=== PATIENT | female | born 1950 | race American Indian/Alaskan Native ===

== ENCOUNTER 2016-06-21 00:27 | Inpatient (IN) | payer MEDICARE ==
[2016-06-21] MEDS ORDERED: PROVENTIL IH ONE ×4 (00:38→13:23)
[2016-06-21] MEDS ORDERED: ATROVENT IH ONE ×3 (00:38→01:24)
[2016-06-21] MEDS ORDERED: DELTASONE PO ONE (01:29)
--- NOTE | 2016-06-21 02:23 | Emergency Department Report ---
HPI - General Chief Complaint: Dyspnea/Respdistress Time Seen by Provider: 06/21/16 02:10 - HPI HPI: Room 19 The patient is a 66-year-old female presenting with a chief complaint of shortness of breath. The patient states for 1 week she has had a cough productive of yellow sputum and rhinorrhea. Patient denies any history of fever. Patient states her symptoms do appear to be exacerbated her asthma and she has been wheezing as well. Patient denies any sick contacts Location: Lungs Duration: One week Quality: Wheezing Severity: Moderate Modifying factors: [see above] Context: [see above] Mode of transportation: [not driving] ED Past Medical Hx - Past Medical History Previous Medical History?: Yes Hx Hypertension: Yes Hx Diabetes: Yes Hx Asthma: Yes - Surgical History Past Surgical History?: No - Family History Family history: no significant - Social History Smoking Status: Former Smoker (none x 30 years) Substance Use Type: None - Medications Home Medications: Home Medications Medication Instructions Recorded Confirmed Last Taken Type Fluticasone [Flonase] 50 mcg IH Q4-6H PRN 06/21/16 06/21/16 Unknown History Gabapentin [Neurontin] 800 mg PO Q8H 06/21/16 06/21/16 06/19/16 History Glimepiride [Amaryl] 2 mg PO QAM 06/21/16 06/21/16 06/20/16 History Insulin Glargine,Hum.rec.anlog 100 units SUB-Q QHS 06/21/16 06/21/16 06/19/16 History [Lantus Solostar] Lisinopril [Zestril TAB] 40 mg PO QDAY 06/21/16 06/21/16 06/20/16 History Metformin HCl [Metformin HCl ER] 500 mg PO BID 06/21/16 06/21/16 06/20/16 History amLODIPine [Norvasc] 5 mg PO DAILY 06/21/16 06/21/16 06/20/16 History ED Review of Systems ROS: Stated complaint: MARC/CONGESTION Other details as noted in HPI Comment: All other systems reviewed and negative Constitutional: denies: fever Eyes: denies: eye pain, eye discharge, vision change ENT: congestion, other (rhinorrhea) Respiratory: cough, shortness of breath, wheezing Cardiovascular: denies: chest pain, palpitations Endocrine: no symptoms reported Gastrointestinal: denies: abdominal pain, nausea, diarrhea Genitourinary: denies: urgency, dysuria, discharge Musculoskeletal: denies: back pain, joint swelling, arthralgia Skin: denies: rash, lesions Neurological: denies: headache, weakness, paresthesias Psychiatric: denies: anxiety, depression Hematological/Lymphatic: denies: easy bleeding, easy bruising Physical Exam - Physical Exam Vital Signs: Vital Signs 06/21/16 06/21/16 01:02 01:30 Temperature 98.8 F 98.8 F Pulse Rate 101 H 104 H Respiratory 18 18 Rate Blood Pressure 154/97 Blood Pressure 168/115 [Left] O2 Sat by Pulse 99 97 Oximetry Physical Exam: GENERAL: The patient is well-developed well-nourished male sitting on stretcher not appearing to be in acute distress. [] HEENT: Normocephalic. Atraumatic. Extraocular motions are intact. Patient has moist mucous membranes. NECK: Supple. Trachea Midline CHEST/LUNGS: Diffuse wheezing. No accessory muscle use seen HEART/CARDIOVASCULAR: Regular. There is no tachycardia. There is no gallop rub or murmur. ABDOMEN: Abdomen is soft, nontender. Patient has normal bowel sounds. There is no abdominal distention. SKIN: There is no rash. There is no diaphoresis. NEURO: The patient is awake, alert, and oriented. The patient is cooperative. The patient has normal speech MUSCULOSKELETAL: There is no evidence of acute injury. ED Course Vital Signs 06/21/16 06/21/16 01:02 01:30 Temperature 98.8 F 98.8 F Pulse Rate 101 H 104 H Respiratory 18 18 Rate Blood Pressure 154/97 Blood Pressure 168/115 [Left] O2 Sat by Pulse 99 97 Oximetry - Reevaluation(s) Reevaluation #1: 06/21/16 03:57 Patient still wheezing diffusely. Will admit the patient to the hospital for further treatment ED Medical Decision Making - Lab Data Result diagrams: 06/21/16 04:00 06/21/16 04:00 Laboratory Tests 06/21/16 06/21/16 04:00 04:00 WBC 13.9 H RBC 3.35 L Hgb 10.3 Hct 31.0 MCV 93 MCH 31 MCHC 33 RDW 13.1 L Plt Count 368 Lymph % (Auto) 22.0 [place] % (Auto) 7.9 H Eos % (Auto) 2.0 Baso % (Auto) 0.8 Lymph # 3.1 [place] # 1.1 H Eos # 0.3 Baso # 0.1 Seg Neutrophils % 67.3 Seg Neutrophils # 9.3 H Sodium 139 Potassium 4.6 Chloride 99.2 Carbon Dioxide 25 Anion Gap 19 BUN 20 H Creatinine 1.4 H Estimated GFR 46 BUN/Creatinine Ratio 14.28 Glucose 324 H Calcium 9.1 Influenza negative - Radiology Data Radiology results: image reviewed (chest x-ray) interpreted by me: Chest x-ray-no focal infiltrates, no pneumothorax - Differential Diagnosis acute asthma exacerbation, pneumonia, bronchitis, influenza Critical care attestation.: If time is entered above; I have spent that time in minutes in the direct care of this critically ill patient, excluding procedure time. ED Disposition Clinical Impression: Shortness of breath, Acute asthma exacerbation Disposition: OP ADMITTED IP TO THIS HOSP Is pt being admited?: Yes Does the pt Need Aspirin: Yes Condition: Fair Referrals: PRIMARY CARE, [Primary Care Provider] - 3-5 Days Time of Disposition: 03:58 (hospitalist paged)
[2016-06-21] MEDS ORDERED: MAGNESIUM SULFATE 2GM/50ML 2 GM/50 ML BAG IV ONE (03:57)
[2016-06-21 04:33] LABS: BUN/Creatinine Ratio 14.28; Calcium 9.1 mg/dL (8.4-10.2); Chloride 99.2 mmol/L (98-107); Potassium 4.6 mmol/L (3.6-5.0)
[2016-06-21 04:38] LABS: Basophils % (Auto) 0.8 % (0.0-1.8); Hemoglobin 10.3 gm/dl (10.1-14.3); Mean Corpuscular HGB Conc 33 % (30-34); Mean Corpuscular Hemoglobin 31 pg (28-32); Mean Corpuscular Volume 93 fl (79-97); Platelet Count 368 K/mm3 (140-440); Red Blood Count 3.35 M/mm3 (3.65-5.03); Red Cell Distribution Width 13.1 % (13.2-15.2); White Blood Count 13.9 K/mm3 (4.5-11.0)
[2016-06-21] MEDS ORDERED: MILK OF MAGNESIA PO PRN (05:13)
[2016-06-21] MEDS ORDERED: DULCOLAX PR PRN (05:13)
[2016-06-21] MEDS ORDERED: TYLENOL PO PRN (05:13)
[2016-06-21] MEDS ORDERED: D50W (25GM) IV PRN (05:13)
[2016-06-21] MEDS ORDERED: ZOFRAN IV PRN (05:13)
--- NOTE | 2016-06-21 05:37 | History and Physical Report ---
History of Present Illness Date of examination: 06/21/16 History of present illness: 66-year-old woman with history of hypertension, diabetes, asthma, gout comes emergency room with complaints of shortness of breath 1 week, cough productive of yellow phlegm, no fever or chills she has been using her nebulized treatments at home without significant improvement Patient denies chest pain, palpitation, abdominal pain, hematochezia, dysuria, frequency, focal weakness, dysarthria, fever chills, polydipsia polyuria, hot or cold intolerance, easy bruisability, or rash or bleeding from mucosal membrane, rhinorrhea, epistaxis, earache, tinnitus, blurry vision, eye discharge , anxiety, depression. Other review of systems negative PAST SURGICAL HISTORY: Hysterectomy, cholecystectomy, ankle surgery SOCIAL HISTORY: Denies alcohol, tobacco, drugs FAMILY HISTORY: Hypertension Medications and Allergies Allergies Allergy/AdvReac Type Severity Reaction Status Date / Time No Known Allergies Allergy Verified 06/21/16 01:02 Home Medications Medication Instructions Recorded Confirmed Last Taken Type Fluticasone [Flonase] 50 mcg IH Q4-6H PRN 06/21/16 06/21/16 Unknown History Gabapentin [Neurontin] 800 mg PO Q8H 06/21/16 06/21/16 06/19/16 History Glimepiride [Amaryl] 2 mg PO QAM 06/21/16 06/21/16 06/20/16 History Insulin Glargine,Hum.rec.anlog 100 units SUB-Q QHS 06/21/16 06/21/16 06/19/16 History [Lantus Solostar] Lisinopril [Zestril TAB] 40 mg PO QDAY 06/21/16 06/21/16 06/20/16 History Metformin HCl [Metformin HCl ER] 500 mg PO BID 06/21/16 06/21/16 06/20/16 History amLODIPine [Norvasc] 5 mg PO DAILY 06/21/16 06/21/16 06/20/16 History Albuterol Sulfate [Albuterol 0.63% 0.63 mg IH TID PRN #1 box 06/22/16 Unknown Rx NEBS] Azithromycin [Zithromax TAB] 250 mg PO QDAY #6 tablet 06/22/16 Unknown Rx Benzonatate [Tessalon Perles] 100 mg PO Q8HR #30 capsule 06/22/16 Unknown Rx Ipratropium [Atrovent NEB] 0.5 mg IH Q8HRT #1 box 06/22/16 Unknown Rx Nebulizer/Compressor [Devilbiss 1 each MC DAILY PRN #1 each 06/22/16 Unknown Rx Pulmoneb Lt Comp-Neb] Prednisone [predniSONE 10 mg 10 mg PO .TAPER #1 tab.ds.pk 06/22/16 Unknown Rx (6-Day Pack, 21 Tabs)] Exam - Physical Exam Narrative exam: Gen. appearance: Patient lying in bed, no apparent distress HEENT: Normocephalic, atraumatic, pupils equally round and reactive to light, extraocular movement intact, and no sclericterus,. No JVD or thyromegaly or nodule,neck supple, no carotid bruit ,mucous membranes moist, no exudate or erythema Heart: S1, S2, regular rate and rhythm Lungs: Wheezing bilaterally, breathing comfortable Abdomen: Positive bowel sounds, nontender, nondistended, no organomegaly Extremity: No edema, cyanosis, clubbing Skin: No rash, nodules, warm, dry Neuro: Oriented 3, cranial nerves II-12 intact, speech is fluent, motor and sensory intact - Constitutional Vitals: Temp Pulse Resp BP Pulse Ox 98.4 F 107 H 18 123/67 93 06/21/16 02:26 06/21/16 04:31 06/21/16 04:31 06/21/16 04:31 06/21/16 04:31 Results - Labs CBC & Chem 7: 06/22/16 08:53 06/22/16 08:53 Labs: Abnormal lab results 06/21/16 06/21/16 Range/Units 04:00 04:00 WBC 13.9 H (4.5-11.0) K/mm3 RBC 3.35 L (3.65-5.03) M/mm3 RDW 13.1 L (13.2-15.2) % [place] % (Auto) 7.9 H (0.0-7.3) % [place] # 1.1 H (0.0-0.8) K/mm3 Seg Neutrophils # 9.3 H (1.8-7.7) K/mm3 BUN 20 H (7-17) mg/dL Creatinine 1.4 H (0.7-1.2) mg/dL Glucose 324 H (65-100) mg/dL - Imaging and Cardiology EKG: image reviewed Chest x-ray: image reviewed Assessment and Plan Asthma exacerbation Hypertension Diabetes type 2 Gout Admits medicine Start high-dose IV steroids, nebulizer treatment, IV Zithromax Obtain sputum culture, check fingersticks initiate insulin sliding scale Continue appropriate outpatient medications, start DVT prophylaxis
[2016-06-21] MEDS: ZITHROMAX 500 MG in NACL 0.9% 250ML 250 ML IV SCH (06:28)
--- NOTE | 2016-06-21 06:49 | Admit Criteria Form ---
Admission Criteria Documentation: ASTHMA Clinical Indications for Admission to Inpatient Care (Place 'X' for any and all applicable criteria): Admission is indicated for ANY ONE of the following (1)(2)(3)(4)(5): [ ]I. Absent or markedly diminished breath sounds (silent chest) [ ]II. Oxygen saturation < 92% [ ]III. PaCO2 = / > 42 mm Hg (5.6 kPa) [ ]IV. Peak expiratory flow rate < 40% of predicted or personal best after treatment. [ ]V. Peak expiratory flow rate < 33% of predicted or personal before after treatment [ ]. Change in mental status [ ]VII. Ventilatory support required [ ]VIII. PaO2 < 60 mm Hg (8.0 kPa) [ ]IX. Cyanosis [ ]X. Cardiac dysrhythmia (e.g., bradycardia) [ ]XI. Hemodynamic instability [ ]XII. Radiographic evidence of complication requiring inpatient treatment (e.g., pneumonia, pneumothorax) [X]XIII. Inpatient admission required rather than observation care (also use Asthma: Observation Care guideline as appropriate) because of ANY ONE of the following: [ ]a) Respiratory finding that is severe or persistent (eg, dyspnea, tachypnea, accessory muscle use) [ ]b) Airflow measurements less than 60% of predicted or personal best that persist (e.g., over 24 hours) or worsen despite treatments [X]c) Supplemental oxygen or respiratory treatments for over 24 hours that are performable only in acute inpatient setting [ ]d) Other condition, treatment or monitoring requiring inpatient admission. Extended stay beyond goal length of stay may be needed for (26)(27)(28): [ ]a) Severe respiratory failure (23) (29) (30) [ ]b) Secondary causes and complications (25) [ ]c) Status asthmaticus [ ]d) Chronic obstructive asthma [ ]e) Older patients (29) [ ]f) Slow resolution [ ]g) Clinically significant exacerbation of comorbidities (eg, da. heart failure, atrial fibrillation) The original [employer] content created by [employer] has been revised. The portions of the content which have been revised are identified through the use of italic text or in bold, and [employer] has neither reviewed nor approved the modified material. All other unmodified content is copyright [employer] Please see references footnoted in the original [facility] edition 2016 Admission Criteria Met: Yes
--- NOTE | 2016-06-21 07:27 | XRay Report ---
ROUTINE CHEST, TWO VIEWS: HISTORY: Shortness of breath, cough. There is poor inspiration. Mild pulmonary venous congestion is suspected. Heart size is within normal limits. The lungs are clear. No evidence for pneumonia, CHF or pneumothorax. The bony structures are grossly intact. IMPRESSION: Mild pulmonary venous congestion.
[2016-06-21] MEDS ORDERED: NOVOLOG SUB-Q ONE (07:54)
[2016-06-21] MEDS: NOVOLOG SUB-Q SCH ×4 (08:00→23:15)
[2016-06-21] MEDS ORDERED: DUONEB 0.5 MG-3 MG/3 ML SOLN IH ONE ×2 (09:11→13:24)
[2016-06-21] MEDS: DUONEB 0.5 MG-3 MG/3 ML SOLN IH SCH ×3 (09:23→21:30)
[2016-06-21] MEDS ORDERED: LOVENOX SUB-Q ONE (10:21)
[2016-06-21] MEDS: LOVENOX SUB-Q SCH (10:31)
--- NOTE | 2016-06-21 16:09 | Event Note ---
Date: 06/21/16 Patient's exam and this afternoon in no acute distress still with cough and still with wheezing. Lantus added for bedtime insulin coverage. Continue to monitor closely.
[2016-06-21] MEDS ORDERED: FLONASE NS PRN ×2 (16:57→18:45)
[2016-06-21] MEDS ORDERED: AMBIEN PO PRN (16:58)
[2016-06-21] MEDS ORDERED: NEURONTIN PO SCH ×2 (20:00)
[2016-06-21] MEDS ORDERED: LEVEMIR SUB-Q SCH (22:00)
[2016-06-21] MEDS ORDERED: DESYREL PO SCH (22:00)
[2016-06-21] MEDS: NEURONTIN PO SCH (23:15)
[2016-06-22] MEDS: TESSALON PERLES PO SCH ×3 (01:43→14:35)
[2016-06-22] MEDS: DUONEB 0.5 MG-3 MG/3 ML SOLN IH SCH ×2 (02:11→09:25)
[2016-06-22] MEDS: ZITHROMAX 500 MG in NACL 0.9% 250ML 250 ML IV SCH (06:05)
[2016-06-22] MEDS: NEURONTIN PO SCH ×2 (08:09→14:35)
[2016-06-22] MEDS: NOVOLOG SUB-Q SCH ×2 (08:09→10:30)
[2016-06-22 09:27] LABS: Hematocrit 29.4 % (30.3-42.9); Hemoglobin 9.4 gm/dl (10.1-14.3); Mean Corpuscular HGB Conc 32 % (30-34); Mean Corpuscular Hemoglobin 30 pg (28-32); Mean Corpuscular Volume 94 fl (79-97); Platelet Count 383 K/mm3 (140-440); Red Blood Count 3.13 M/mm3 (3.65-5.03); Red Cell Distribution Width 13.4 % (13.2-15.2)
[2016-06-22 09:31] LABS: White Blood Count 20.2 K/mm3 (4.5-11.0)
[2016-06-22 09:37] LABS: BUN/Creatinine Ratio 17.5; Chloride 95.6 mmol/L (98-107); Potassium 4.9 mmol/L (3.6-5.0)
[2016-06-22] MEDS: LOVENOX SUB-Q SCH (09:49)
[2016-06-22 09:53] VITALS: BP 112/67
[2016-06-22] MEDS ORDERED: NORVASC PO SCH (10:00)
[2016-06-22] MEDS ORDERED: ZESTRIL PO SCH (10:00)
[2016-06-22 10:05] LABS: Basophils % (Manual) 0 % (0.0-1.8); Blastocytes % (Manual) 0 %; Eosinophils % (Manual) 0 % (0.0-4.3)
[2016-06-22 10:06] LABS: Anisocytosis 1+; Diff Status Complete; Ovalocytes Few; Polychromasia Rare; Stomatocytes Few
[2016-06-22] MEDS ORDERED: FLUARIX QUAD 2016-2017(36 MOS+) IM ONE (14:40)
[2016-06-22] MEDS ORDERED: PNEUMOVAX 23 IM ONE (15:00)
--- NOTE | 2016-06-22 16:35 | Discharge Summary ---
Providers - Providers Date of Admission: 06/21/16 05:13 Attending physician: ONOFRE NELSON Primary care physician: RECREATION COUNSELOR Hospitalization Condition: Fair Disposition: DISCHARGED TO HOME OR SELFCARE - Discharge Diagnoses (1) Gout Status: Acute Qualifiers: Gout site: G Gout etiology: G Encounter type: E Laterality: L Chronicity: C Presence of tophus: P (2) Metabolic syndrome Status: Acute (3) Diabetes Status: Acute Qualifiers: Diabetes mellitus type: D Diabetes mellitus complication status: D Diabetes mellitus complication detail: D Diabetic retinopathy severity: D Proliferative retinopathy type: P Diabetes mellitus macular edema: D Diabetes mellitus intermediate insulin use: D Laterality: L Chronic kidney disease stage: C (4) Acute asthma exacerbation Status: Acute Qualifiers: Asthma severity: A Exam - Constitutional Vitals: Temp Pulse Resp BP Pulse Ox 98 F 88 18 112/67 95 06/22/16 08:00 06/22/16 09:51 06/22/16 09:36 06/22/16 09:51 06/22/16 10:00 Plan Follow up with: PRIMARY CAREMD [Primary Care Provider] - 3-5 Days Prescriptions: Albuterol Sulfate [Albuterol 0.63% NEBS] 0.63 mg IH TID PRN #1 box PRN Reason: Wheezing Azithromycin [Zithromax TAB] 250 mg PO QDAY #6 tablet Benzonatate [Tessalon Perles] 100 mg PO Q8HR #30 capsule Ipratropium [Atrovent NEB] 0.5 mg IH Q8HRT #1 box Nebulizer/Compressor [Devilbiss Pulmoneb Lt Comp-Neb] 1 each MC DAILY PRN #1 each PRN Reason: Wheezing Prednisone [predniSONE 10 mg (6-Day Pack, 21 Tabs)] 10 mg PO .TAPER #1 tab.ds.pk
--- NOTE | 2016-06-25 08:22 | Query- Dyspnea ---
Leesa Nunn Wood Date:___06/25/16 Health Analytics Consultant/CDS: Tony / Theresa Phone#: [phone] Exercise your independent professional judgment when responding to query. Questions asked do not imply a particular answer is desired or expected. We greatly appreciate your clarification on this issue. Clinical Documentation States: 66 year old female was admitted on 06/21/16. The discharge summary states " Acute asthma exacerbation Status: Acute Qualifiers: Asthma severity: A " Clinical Findings Show: Respiratory rate: 33 Pulse ox: 89% Medication: IV solumedrol Please clarify if the patient had any of the following conditions based on the above clinical findings: [ ] Respiratory Failure [x ] Acute [ ] Acute on Chronic [ ] Chronic [ ] Respiratory failure due to trauma [ ] Acute Respiratory Distress Syndrome [ ] Other: [ ] Unable to determine [ ] Comment/Explanation: Present on Admission: [ x] Yes (Y) [ ] Clinically undeterminable (W) [ ] No (N) Please also document response in your Progress Notes and/or Discharge Summary and indicate if the condition was present on admission. DEXTER
--- NOTE | 2016-06-25 08:30 | Query- SIRS ---
Leesa Rosen Date: 06/25/16 Brancher/CDS: Tony / Theresa Phone#:__[phone] Exercise your independent professional judgment when responding to query. Questions asked do not imply a particular answer is desired or expected. We greatly appreciate your clarification on this issue. Clinical Documentation States: 66 year old female was admitted on 06/21/16. The discharge summary states " Discharge diagnosis: gout, metabolic syndrome, diabetes, acute asthma exacerbation " Clinical Findings Show (include reference to source document): WBC: 13.9 (06/21/16) , 20.2 (06/22/16) Pulse rate: 108 Medication : IV azithromycin Based on the above clinical scenario and your knowledge of the patient, please indicate the most appropriate diagnosis: [ ] SIRS (non-infectious) with Acute Organ Dysfunction [ x] SIRS (non-infectious) without Acute Organ Dysfunction [ ] Other: [ ] Unable to determine [ ] Comment/Explanation: Present on Admission: [x ] Yes (Y) [ ] Clinically undeterminable (W) [ ] No (N) Please also document response in your Progress Notes and/or Discharge Summary and indicate if the condition was present on admission. MTDD
--- NOTE | 2016-06-25 08:36 | Query- Diabetes Complications ---
Leesa Nunn Wood Date: 06/25/16 Systems Protection Technician/CDS: Tony / Theresa Phone#:____[phone] Exercise your independent professional judgment when responding to query. Questions asked do not imply a particular answer is desired or expected. We greatly appreciate your clarification on this issue. Clinical Documentation States: 66 year old female was admitted on 06/21/16. The discharge summary states " discharge diagnosis: diabetes " Clinical Findings Show: 06/21/16 06/22/16 Glucose: 324 506 Medication: IV dextrose, insulin glargin, novolog, levemir & novolin R Please clarify if this is: [x ] Diabetes with Hyperosmolarity [ ] Diabetic Ketoacidosis (DKA) [ ] Not applicable [ ] Other (Please specify): Please specify type as: [ ] Type I or Juvenile [ x] Out of control [ ] Inadequately controlled [ ] Poorly controlled [ ] Type II [ ] Out of control [ ] Inadequately controlled [ ] Poorly controlled Present on Admission: [x ] Yes (Y) [ ] Clinically undeterminable (W) [ ] No (N) Please also document response in your Progress Notes and/or Discharge Summary and indicate if the condition was present on admission. MTDD
== END 2016-06-22 15:45 | disposition home or self-care (01) | DRG 189 ==
LOC: ED 00:27 → 3A 05:13 → CC2 07:42
PROVIDERS: ADMIT Internal Medicine; ATTEND Internal Medicine
PROC: 3E0234Z Introduction of Serum, Toxoid and Vaccine into Muscle, Percutaneous Approach (ICD-10-PCS; principal; 2016-06-22)
DX: J96.00 Acute respiratory failure, unspecified whether with hypoxia or hypercapnia (principal); E13.00 Other specified diabetes mellitus with hyperosmolarity without nonketotic hyperglycemic-hyperosmolar coma (NKHHC); J45.901 Unspecified asthma with (acute) exacerbation; R65.10 Systemic inflammatory response syndrome (SIRS) of non-infectious origin without acute organ dysfunction; I10 Essential (primary) hypertension; M10.9 Gout, unspecified; E88.81 Metabolic syndrome and other insulin resistance; Z23 Encounter for immunization; Z87.891 Personal history of nicotine dependence; Z79.4 Long term (current) use of insulin; Z90.49 Acquired absence of other specified parts of digestive tract; Z90.710 Acquired absence of both cervix and uterus; Z82.49 Family history of ischemic heart disease and other diseases of the circulatory system; Z79.84 Long term (current) use of oral hypoglycemic drugs
CPT/HCPCS: 36415; 71020; 80048; 82962; 85007; 85025; 87400; 90686; 90732; 94640; 94644; 94760; 96365; J0456; J1650; J1815; J1818; J2930; J3475; J7050; J7512

== ENCOUNTER 2019-02-09 08:35 | Inpatient (IN) | payer MEDICARE ==
[2019-02-09] MEDS ORDERED: DEXTROSE 50% IN WATER (25GM) 50 ML SYRINGE IV ONE ×6 (08:46→22:38)
--- NOTE | 2019-02-09 09:35 | Emergency Department Report ---
HPI - General Chief Complaint: Altered Mental Status Time Seen by Provider: 02/09/19 09:01 - HPI HPI: Room 24 The patient is a 68-year-old female presenting with a chief complaint of altered mental status. Per family the patient has been "out of it" and complained of weakness for one week. Family states this morning the patient began stating that she wanted to go to the hospital as she experience nausea and vomiting. When EMS arrived they stated the patient appeared to have slurred speech and was hypotensive and subsequently transported the patient to the ED. In the ED the patient was found to be hypoglycemic with a glucose of 51. The patient was administered D50 but still seemed lethargic. Patient denies complaints in the ED Location: [See above] Duration: [See above] Quality: [See above] Severity: [See above] Timing: [See above] Context: [See above] Modifying factors: [See above] Associated signs and symptoms: [see above] ED Past Medical Hx - Past Medical History Hx Hypertension: Yes Hx Diabetes: Yes Hx Arthritis: Yes Hx Asthma: Yes - Surgical History Hx Cholecystectomy: Yes Additional Surgical History: Left foot - Family History Family history: no significant - Social History Smoking Status: Never Smoker Substance Use Type: None - Medications Home Medications: Home Medications Medication Instructions Recorded Confirmed Last Taken Type Fluticasone [Flonase] 50 mcg IH Q4-6H PRN 06/21/16 06/21/16 Unknown History Gabapentin [Neurontin] 800 mg PO Q8H 06/21/16 06/21/16 06/19/16 History Glimepiride [Amaryl] 2 mg PO QAM 06/21/16 06/21/16 06/20/16 History Insulin Glargine,Hum.rec.anlog 100 units SUB-Q QHS 06/21/16 06/21/16 06/19/16 History [Lantus Solostar] Lisinopril [Zestril TAB] 40 mg PO QDAY 06/21/16 06/21/16 06/20/16 History Metformin HCl [Metformin HCl ER] 500 mg PO BID 06/21/16 06/21/16 06/20/16 History amLODIPine [Norvasc] 5 mg PO DAILY 06/21/16 06/21/16 06/20/16 History Albuterol Sulfate [Albuterol 0.63% 0.63 mg IH TID PRN #1 box 06/22/16 Unknown Rx NEBS] Azithromycin [Zithromax TAB] 250 mg PO QDAY #6 tablet 06/22/16 Unknown Rx Benzonatate [Tessalon Perles] 100 mg PO Q8HR #30 capsule 06/22/16 Unknown Rx Ipratropium [Atrovent NEB] 0.5 mg IH Q8HRT #1 box 06/22/16 Unknown Rx Nebulizer and Compressor 1 each MC DAILY PRN #1 each 06/22/16 Unknown Rx [Devilbiss Pulmoneb Lt Comp-Neb] Prednisone [predniSONE 10 mg 10 mg PO .TAPER #1 tab.ds.pk 06/22/16 Unknown Rx (6-Day Pack, 21 Tabs)] ED Review of Systems ROS: Stated complaint: AMS Other details as noted in HPI Constitutional: malaise Eyes: denies: eye pain ENT: denies: throat pain Respiratory: no symptoms reported Cardiovascular: denies: chest pain Endocrine: no symptoms reported Gastrointestinal: nausea, vomiting Genitourinary: denies: dysuria Musculoskeletal: denies: back pain Neurological: other (altered mental status) Physical Exam - Physical Exam Vital Signs: Vital Signs 02/09/19 02/09/19 09:07 09:11 Temperature 99.9 F H 99.9 F H Pulse Rate 70 70 Respiratory 14 14 Rate Blood Pressure 107/49 Blood Pressure 107/49 [Right] O2 Sat by Pulse 97 97 Oximetry Physical Exam: GENERAL: The patient is well-developed well-nourished female lying on stretcher not appearing to be in acute distress. [] HEENT: Normocephalic. Atraumatic. Patient will not look to the right when instructed during extraocular muscle exam. Patient has moist mucous membranes. NECK: Supple. Trachea midline CHEST/LUNGS: Clear to auscultation. There is no respiratory distress noted. HEART/CARDIOVASCULAR: Regular. There is no tachycardia. There is no gallop rub or murmur. ABDOMEN: Abdomen is soft, nontender. Patient has normal bowel sounds. There is no abdominal distention. SKIN: There is no rash. There is no edema. There is no diaphoresis. NEURO: The patient is lethargic and falls asleep easily. The patient is not fully cooperative with neurologic exam. The patient has normal speech MUSCULOSKELETAL: There is no evidence of acute injury. ED Course Vital Signs 02/09/19 02/09/19 09:07 09:11 Temperature 99.9 F H 99.9 F H Pulse Rate 70 70 Respiratory 14 14 Rate Blood Pressure 107/49 Blood Pressure 107/49 [Right] O2 Sat by Pulse 97 97 Oximetry - Consultations Consultation #1: 02/09/19 11:13 Nephrology paged 02/09/19 11:[address] Noriega ED Medical Decision Making - Lab Data Result diagrams: 02/09/19 09:16 02/09/19 09:16 Laboratory Tests 02/09/19 02/09/19 02/09/19 08:48 09:16 09:16 WBC 14.6 H RBC 2.48 L Hgb 8.2 L Hct 25.4 L MCV 102 H MCH 33 H MCHC 32 RDW 16.1 H Plt Count 140 Add Manual Diff Complete Total Counted 100 Seg Neutrophils % Best Worker Seg Neuts % (Manual) 94.0 H Band Neutrophils % 5.0 Lymphocytes % (Manual) 1.0 L Reactive Lymphs % (Man) 0 Monocytes % (Manual) 0 Eosinophils % (Manual) 0 Basophils % (Manual) 0 Metamyelocytes % 0 Myelocytes % 0 Promyelocytes % 0 Blast Cells % 0 Nucleated RBC % 1.0 H Seg Neutrophils # Man 13.7 H Band Neutrophils # 0.7 Lymphocytes # (Manual) 0.1 L Abs React Lymphs (Man) 0.0 Monocytes # (Manual) 0.0 Eosinophils # (Manual) 0.0 Basophils # (Manual) 0.0 Metamyelocytes # 0.0 Myelocytes # 0.0 Promyelocytes # 0.0 Blast Cells # 0.0 WBC Morphology Not Reportable Hypersegmented Neuts Not Reportable Hyposegmented Neuts Not Reportable Hypogranular Neuts Not Reportable Smudge Cells Not Reportable Toxic Granulation Not Reportable Toxic Vacuolation Not Reportable Dohle Bodies Not Reportable Pelger-Huet Anomaly Not Reportable Casey Rods Not Reportable Platelet Estimate Consistent w auto Clumped Platelets Not Reportable Plt Clumps, EDTA Not Reportable Large Platelets Not Reportable Giant Platelets Not Reportable Platelet Satelliting Not Reportable Plt Morphology Comment Not Reportable RBC Morphology Not Reportable Dimorphic RBCs Not Reportable Polychromasia Few Hypochromasia Not Reportable Poikilocytosis Not Reportable Anisocytosis Few Microcytosis Not Reportable Macrocytosis 1+ Spherocytes Few Pappenheimer Bodies Not Reportable Sickle Cells Not Reportable Target Cells Not Reportable Tear Drop Cells Few Ovalocytes Few Helmet Cells Not Reportable Aguayo-Olinda Bodies Not Reportable [place] Rings Not Reportable [place] Cells Not Reportable Bite Cells Not Reportable Crenated Cell Not Reportable Elliptocytes Not Reportable Acanthocytes (Spur) Not Reportable Rouleaux Not Reportable Hemoglobin C Crystals Not Reportable Schistocytes Not Reportable Malaria parasites Not Reportable Emanuel Bodies Not Reportable Hem Pathologist Commnt No PT 17.8 H INR 1.49 H APTT 36.0 Sodium Potassium Chloride Carbon Dioxide Anion Gap BUN Creatinine Estimated GFR BUN/Creatinine Ratio Glucose POC Glucose 51 L Calcium Total Bilirubin AST ALT Alkaline Phosphatase Ammonia Total Creatine Kinase CK-MB (CK-2) CK-MB (CK-2) Rel Index Troponin T Total Protein Albumin Albumin/Globulin Ratio Triglycerides Cholesterol LDL Cholesterol Direct HDL Cholesterol Cholesterol/HDL Ratio TSH Free T4 Plasma/Serum Alcohol 02/09/19 02/09/19 02/09/19 09:16 09:16 09:16 WBC RBC Hgb Hct MCV MCH MCHC RDW Plt Count Add Manual Diff Total Counted Seg Neutrophils % Seg Neuts % (Manual) Band Neutrophils % Lymphocytes % (Manual) Reactive Lymphs % (Man) Monocytes % (Manual) Eosinophils % (Manual) Basophils % (Manual) Metamyelocytes % Myelocytes % Promyelocytes % Blast Cells % Nucleated RBC % Seg Neutrophils # Man Band Neutrophils # Lymphocytes # (Manual) Abs React Lymphs (Man) Monocytes # (Manual) Eosinophils # (Manual) Basophils # (Manual) Metamyelocytes # Myelocytes # Promyelocytes # Blast Cells # WBC Morphology Hypersegmented Neuts Hyposegmented Neuts Hypogranular Neuts Smudge Cells Toxic Granulation Toxic Vacuolation Dohle Bodies Pelger-Huet Anomaly Casey Rods Platelet Estimate Clumped Platelets Plt Clumps, EDTA Large Platelets Giant Platelets Platelet Satelliting Plt Morphology Comment RBC Morphology Dimorphic RBCs Polychromasia Hypochromasia Poikilocytosis Anisocytosis Microcytosis Macrocytosis Spherocytes Pappenheimer Bodies Sickle Cells Target Cells Tear Drop Cells Ovalocytes Helmet Cells Aguayo-Olinda Bodies [place] Rings [place] Cells Bite Cells Crenated Cell Elliptocytes Acanthocytes (Spur) Rouleaux Hemoglobin C Crystals Schistocytes Malaria parasites Emanuel Bodies Hem Pathologist Commnt PT INR APTT Sodium 131 L Potassium 6.0 H Chloride 91.4 L Carbon Dioxide 18 L Anion Gap 28 BUN 115 H Creatinine 6.8 H Estimated GFR 7 BUN/Creatinine Ratio 17 Glucose 90 POC Glucose Calcium 8.8 Total Bilirubin 2.90 H AST 20 ALT 10 Alkaline Phosphatase 115 Ammonia 61.0 H Total Creatine Kinase 264 H CK-MB (CK-2) 2.1 CK-MB (CK-2) Rel Index 0.7 Troponin T 0.073 H Total Protein 8.8 H Albumin 2.6 L Albumin/Globulin Ratio 0.4 Triglycerides 65 Cholesterol 47 L LDL Cholesterol Direct 13 L HDL Cholesterol 27 L Cholesterol/HDL Ratio 1.74 TSH 5.570 H Free T4 0.85 Plasma/Serum Alcohol 02/09/19 02/09/19 09:16 10:43 WBC RBC Hgb Hct MCV MCH MCHC RDW Plt Count Add Manual Diff Total Counted Seg Neutrophils % Seg Neuts % (Manual) Band Neutrophils % Lymphocytes % (Manual) Reactive Lymphs % (Man) Monocytes % (Manual) Eosinophils % (Manual) Basophils % (Manual) Metamyelocytes % Myelocytes % Promyelocytes % Blast Cells % Nucleated RBC % Seg Neutrophils # Man Band Neutrophils # Lymphocytes # (Manual) Abs React Lymphs (Man) Monocytes # (Manual) Eosinophils # (Manual) Basophils # (Manual) Metamyelocytes # Myelocytes # Promyelocytes # Blast Cells # WBC Morphology Hypersegmented Neuts Hyposegmented Neuts Hypogranular Neuts Smudge Cells Toxic Granulation Toxic Vacuolation Dohle Bodies Pelger-Huet Anomaly Casey Rods Platelet Estimate Clumped Platelets Plt Clumps, EDTA Large Platelets Giant Platelets Platelet Satelliting Plt Morphology Comment RBC Morphology Dimorphic RBCs Polychromasia Hypochromasia Poikilocytosis Anisocytosis Microcytosis Macrocytosis Spherocytes Pappenheimer Bodies Sickle Cells Target Cells Tear Drop Cells Ovalocytes Helmet Cells Aguayo-Olinda Bodies [place] Rings Karina Cells Bite Cells Crenated Cell Elliptocytes Acanthocytes (Spur) Rouleaux Hemoglobin C Crystals Schistocytes Malaria parasites Emanuel Bodies Hem Pathologist Commnt PT INR APTT Sodium Potassium Chloride Carbon Dioxide Anion Gap BUN Creatinine Estimated GFR BUN/Creatinine Ratio Glucose POC Glucose 83 Calcium Total Bilirubin AST ALT Alkaline Phosphatase Ammonia Total Creatine Kinase CK-MB (CK-2) CK-MB (CK-2) Rel Index Troponin T Total Protein Albumin Albumin/Globulin Ratio Triglycerides Cholesterol LDL Cholesterol Direct HDL Cholesterol Cholesterol/HDL Ratio TSH Free T4 Plasma/Serum Alcohol < 0.01 - EKG Data -: EKG Interpreted by Me EKG shows normal: sinus rhythm Rate: normal - EKG Data When compared to previous EKG there are: previous EKG unavailable Interpretation: nonspecific ST-T wave aggie (T-wave inversion in lead aVL) - Differential Diagnosis hypoglycemia, hepatic encephalopathy, rhabdomyolysis, ICH, dehydration Critical care attestation.: If time is entered above; I have spent that time in minutes in the direct care of this critically ill patient, excluding procedure time. ED Disposition Clinical Impression: Acute renal failure, Altered mental status, Hyperkalemia Disposition: OP ADMIT IP TO THIS HOSP Is pt being admited?: Yes Does the pt Need Aspirin: No Condition: Serious Referrals: PRIMARY CARE, [Primary Care Provider] - 3-5 Days Time of Disposition: 11:29 (hospitalist paged (Dr Bird))
[2019-02-09 09:40] LABS: Hematocrit 25.4 % (30.3-42.9); Hemoglobin 8.2 gm/dl (10.1-14.3); Mean Corpuscular HGB Conc 32 % (30-34); Mean Corpuscular Volume 102 fl (79-97); Platelet Count 140 K/mm3 (140-440); Red Blood Count 2.48 M/mm3 (3.65-5.03); Red Cell Distribution Width 16.1 % (13.2-15.2)
[2019-02-09 09:51] LABS: INR 1.49 (0.87-1.13)
[2019-02-09 10:05] LABS: Creatine Kinase MB 2.1 ng/mL (0.0-4.0)
[2019-02-09 10:09] LABS: Albumin 2.6 g/dL (3.9-5); Calcium 8.8 mg/dL (8.4-10.2)
[2019-02-09 10:16] LABS: Free T4 (Free Thyroxine) 0.85 ng/dL (0.76-1.46)
--- NOTE | 2019-02-09 10:36 | Cat Scan Report ---
CT head/brain wo con INDICATION / CLINICAL INFORMATION: 68 years Female; altered mental status. TECHNIQUE: Routine CT head without contrast. All CT scans at this location are performed using CT dos e reduction for ALARA by means of automated exposure control. COMPARISON: None. FINDINGS: BRAIN / INTRACRANIAL CONTENTS: Surprisingly little atrophy present. No acute hemorrhage, mass effect, midline shift, hydrocephalus, or acute, large territorial infarct. No chronic infarct or atrophy brenda reciated. No significant white matter abnormality. CRANIOCERVICAL JUNCTION: No significant abnormality. ORBITS: No significant abnormality of visualized orbits. SINUSES / MASTOIDS: No significant abnormality the visualized paranasal sinuses or mastoid air cells. ADDITIONAL FINDINGS: None. IMPRESSION: 1. No focal mass, hemorrhage, hydrocephalus, or acute, large territorial infarct. Signer Name: Chip Aly MD, III Signed: 02/09/2019 10:32 AM Workstation Name: [id number]
[2019-02-09 10:37] LABS: Band Neutrophils # (Manual) 0.7 K/mm3; Basophils % (Manual) 0 % (0.0-1.8); Eosinophils % (Manual) 0 % (0.0-4.3); Monocytes % (Manual) 0 % (0.0-7.3); Spherocytes Few; Total Cells Counted 100
[2019-02-09 10:38] LABS: Anisocytosis Few; Macrocytosis 1+; Ovalocytes Few; Platelet Estimate Consistent w Auto; Tear Drop Cells Few
[2019-02-09] MEDS ORDERED: SODIUM CHLORIDE 0.9% 1000 ML 1,000 ML ONE ×2 (10:40→15:02)
[2019-02-09 10:57] LABS: Chol/HDL Ratio 1.74 %
[2019-02-09] MEDS ORDERED: SODIUM BICARB 8.4% 50 MEQ/50 ML SYRINGE IV ONE (11:02)
[2019-02-09] MEDS ORDERED: ALBUTEROL 2.5 MG/3 ML NEBU IH ONE (11:02)
[2019-02-09] MEDS ORDERED: CALCIUM GLUCONATE 1,000 MG in SODIUM CHLORIDE 0.9% 100 ML IV ONE (11:30)
--- NOTE | 2019-02-09 13:10 | Consultation ---
History of Present Illness - Reason for Consult Consult date: 02/09/19 acute renal failure - History of Present Illness The patient is a 68-year-old female with history of CHF, COPD who presents with one week of altered mental status. Family is present at bedside; family states that patient has been "out of it" and has complained of weakness over the past week. In the ED, she was noted to be hypotensive and hypoglycemic; she was found to have a creatinine of 6.8 (last creatinine was 1.6 in 2017), K of 6.0, low HCO3. Patient has facemask on at time of consult and is unable to provide m uch further history. She does deny any dyspnea, swelling, dysuria currently. Noted to have nausea and vomiting prior to ED visit. Per family, she did start an antibiotic couple of days ago; no sick contacts or recent travel. No major medical changes noted per family recently. No clear symptoms such as epistaxis, rashes, joint pains. No known history of autoimmune disease. Past History Past Medical History: CAD, COPD, hypertension Past Surgical History: No surgical history Social history: no significant social history, lives with family Family history: hypertension Medications and Allergies Allergies Allergy/AdvReac Type Severity Reaction Status Date / Time No Known Allergies Allergy Verified 06/21/16 01:02 Home Medications Medication Instructions Recorded Confirmed Last Taken Type Fluticasone [Flonase] 50 mcg IH Q4-6H PRN 06/21/16 06/21/16 Unknown History Gabapentin [Neurontin] 800 mg PO Q8H 06/21/16 06/21/16 06/19/16 History Glimepiride [Amaryl] 2 mg PO QAM 06/21/16 06/21/16 06/20/16 History Insulin Glargine,Hum.rec.anlog 100 units SUB-Q QHS 06/21/16 06/21/16 06/19/16 History [Lantus Solostar] Lisinopril [Zestril TAB] 40 mg PO QDAY 06/21/16 06/21/16 06/20/16 History Metformin HCl [Metformin HCl ER] 500 mg PO BID 06/21/16 06/21/16 06/20/16 History amLODIPine [Norvasc] 5 mg PO DAILY 06/21/16 06/21/16 06/20/16 History Albuterol Sulfate [Albuterol 0.63% 0.63 mg IH TID PRN #1 box 06/22/16 Unknown Rx NEBS] Azithromycin [Zithromax TAB] 250 mg PO QDAY #6 tablet 06/22/16 Unknown Rx Benzonatate [Tessalon Perles] 100 mg PO Q8HR #30 capsule 06/22/16 Unknown Rx Ipratropium [Atrovent NEB] 0.5 mg IH Q8HRT #1 box 06/22/16 Unknown Rx Nebulizer and Compressor 1 each MC DAILY PRN #1 each 06/22/16 Unknown Rx [Devilbiss Pulmoneb Lt Comp-Neb] Prednisone [predniSONE 10 mg 10 mg PO .TAPER #1 tab.ds.pk 06/22/16 Unknown Rx (6-Day Pack, 21 Tabs)] Review of Systems All systems: negative (as HPI. Unable to complete full ROS due to patient mentation) Exam - Vital Signs Vital signs: Vital Signs Resp Pulse Ox 17 97 02/09/19 08:46 02/09/19 08:46 - General Appearance General appearance: well-developed, well-nourished, appears stated age, moderate distress, anxious EENT: ATNC, PERRL, mucous membranes moist Neck: Present: neck supple, trachea midline Respiratory: Clear to Ascultation Heart: regular, S1S2, no murmurs Gastrointestinal: Present: normoactive bowel sounds. Absent: tenderness, distended Integumentary: no rash, warm and dry Neurologic: no focal deficit, no asterixis, confused Musculoskeletal: Absent: erythema, joint swelling Psychiatric: mood/affect appropriate Results - Lab Results 02/09/19 09:16 02/09/19 12:47 Most recent lab results Calcium 8.8 mg/dL (8.4-10.2) 02/09/19 09:16 Assessment and Plan This is a 68 year old woman who presents with altered mental status, found to have JESÚS with hyperkalemia, acidosis. # JESÚS: no urine produced yet; will need to rule out obstruction. Creatinine in 2017 was 1.6, 6.8 on admission; no data over past two years but do suspect more acute presentation although very likely to have underlying CKD given co- morbidities. Possible AIN given antibiotic use, although timing does not correlate as she only started antibiotics 2 days ago. Possible tubular injury in setting of soft BPs, need to rule out infection. No new medications otherwise noted. Pre-renal etiology also possible. CK WNL with consideration for rhabdomyolysis. Lastly, consider RPGN especially if urine shows hematuria. - urine studies ordered - renal ultrasound pending; recommend placement of lynch to ensure no obstructive causes of JESÚS - serologic testing sent, including ANCA, TRIP, complements. Will send myeloma workup with next set of labs - will consider renal biopsy if evidence of RPGN, concern for AIN, or renal function does not improve - maintain MAP >70; hold home antihypertensives - small IVF bolus ok if respiratory status stable; would use 250cc bolus to start - medical management of hyperkalemia and acidosis for now - no immediate need for renal replacement therapy; if renal function does not respond to above or is anuric, will need to plan for vascular catheter placement and HD tomorrow. Patient and family have verbally consented to dialysis if needed - will repeat labs again tonight # Gap Metabolic Acidosis: likely in setting of JESÚS; would check lactate given leukocytosis and ensure no infection. Tox screen pending # Hyperkalemia: likely in setting of JESÚS; improved with medical management. Recheck this evening # Hyponatremia: likely in setting of poor salt processing in JESÚS # Leukocytosis: rule out infection, sending urinalysis # Hypotension: hold home meds, possible tubular injury as noted above # Hypoalbuminemia: ensure no hepatic disease; may be related to malnutrition. Will check urinary protein excretion for GN although likely unreliable with JESÚS # Macrocytic Anemia # CHF History Thank you for this interesting consult; we will continue to follow for all renal-related issues. My number is ; do not hesitate to reach out to me with questions today.
[2019-02-09 13:30] LABS: Calcium 8.8 mg/dL (8.4-10.2)
[2019-02-09 13:55] LABS: Hepatitis B Surface Antigen Non-Reactive (Negative); Hepatitis C Virus Antibody Non-Reactive (NonReactive)
[2019-02-09 14:58] LABS: Bacteria,Urine 3+ /HPF (Negative); Bilirubin,Urine NEG (Negative); Blood,Urine SM (Negative); Color,Urine Amber (Yellow); Mucus,Urine FEW /HPF; Urobilinogen,Urine < 2.0 mg/dL (<2.0)
[2019-02-09] MEDS ORDERED: SODIUM CHLORIDE 0.9% 500 ML 500 ML ONE (15:04)
[2019-02-09 15:07] LABS: Amphetamine Screen,Urine PRESUMPTIVE NEGATIVE; Benzodiazepines Screen,Urine PRESUMPTIVE NEGATIVE; Cannabinoid Screen,Urine PRESUMPTIVE NEGATIVE; Cocaine Screen,Urine PRESUMPTIVE NEGATIVE; Methadone Screen,Urine PRESUMPTIVE NEGATIVE; Opiate Screen,Urine PRESUMPTIVE NEGATIVE
[2019-02-09 15:12] LABS: Creatinine,Urine 162.4 mg/dL (0.1-20.0); Protein/Creatinine Ratio,Urine 0.3
[2019-02-09] MEDS ORDERED: SODIUM CHLORIDE 0.9% 500 ML 500 ML IV ONE (17:17)
[2019-02-09 19:38] LABS: Calcium 8.6 mg/dL (8.4-10.2)
--- NOTE | 2019-02-09 22:50 | History and Physical Report ---
History of Present Illness Date of examination: 02/09/19 Date of admission: 02/09/19 11:31 Chief complaint: AMS for 1 day History of present illness: 68-year-old female presenting with a chief complaint of altered mental status. Patient has been confused.No fever or chills.In ER patient had high creatine levels and Low BG.Not a known Renal failure patient.No precipitating factors.Nausea present. Past Medical History Hypertension: Yes Diabetes: Yes Arthritis: Yes Asthma: Yes Surgical History Cholecystectomy: Yes Additional Surgical History: Left foot Family History Family history: no significant Social History Smoking Status: Never Smoker Substance Use Type: None Medications Home Medications: Home Medications Medication Instructions Recorded Confirmed Last Taken Type Fluticasone [Flonase] 50 mcg IH Q4-6H PRN 06/21/16 06/21/16 Unknown History Gabapentin [Neurontin] 800 mg PO Q8H 06/21/16 06/21/16 06/19/16 History Glimepiride [Amaryl] 2 mg PO QAM 06/21/16 06/21/16 06/20/16 History Insulin Glargine,Hum.rec.anlog 100 units SUB-Q QHS 06/21/16 06/21/16 06/19/16 History [Lantus Solostar] Lisinopril [Zestril TAB] 40 mg PO QDAY 06/21/16 06/21/16 06/20/16 History Metformin HCl [Metformin HCl ER] 500 mg PO BID 06/21/16 06/21/16 06/20/16 History amLODIPine [Norvasc] 5 mg PO DAILY 06/21/16 06/21/16 06/20/16 History Albuterol Sulfate [Albuterol 0.63% 0.63 mg IH TID PRN #1 box 06/22/16 Unknown Rx NEBS] Azithromycin [Zithromax TAB] 250 mg PO QDAY #6 tablet 06/22/16 Unknown Rx Benzonatate [Tessalon Perles] 100 mg PO Q8HR #30 capsule 06/22/16 Unknown Rx Ipratropium [Atrovent NEB] 0.5 mg IH Q8HRT #1 box 06/22/16 Unknown Rx Nebulizer and Compressor 1 each MC DAILY PRN #1 each 06/22/16 Unknown Rx [Devilbiss Pulmoneb Lt Comp-Neb] Prednisone [predniSONE 10 mg 10 mg PO .TAPER #1 tab.ds.pk 06/22/16 Unknown Rx (6-Day Pack, 21 Tabs)] Review of Systems ROS: Stated complaint: AMS Other details as noted in HPI Constitutional: malaise Eyes: denies: eye pain ENT: denies: throat pain Respiratory: no symptoms reported Cardiovascular: denies: chest pain Endocrine: no symptoms reported Gastrointestinal: nausea, vomiting Genitourinary: denies: dysuria Musculoskeletal: denies: back pain Neurological: other (altered mental status) Past History Past Medical History: CAD, COPD, hypertension Past Surgical History: No surgical history Social history: no significant social history, lives with family Family history: hypertension Medications and Allergies Allergies Allergy/AdvReac Type Severity Reaction Status Date / Time No Known Allergies Allergy Verified 06/21/16 01:02 Home Medications Medication Instructions Recorded Confirmed Last Taken Type Fluticasone [Flonase] 50 mcg IH Q4-6H PRN 06/21/16 06/21/16 Unknown History Gabapentin [Neurontin] 800 mg PO Q8H 06/21/16 06/21/16 06/19/16 History Glimepiride [Amaryl] 2 mg PO QAM 06/21/16 06/21/16 06/20/16 History Insulin Glargine,Hum.rec.anlog 100 units SUB-Q QHS 06/21/16 06/21/16 06/19/16 History [Lantus Solostar] Lisinopril [Zestril TAB] 40 mg PO QDAY 06/21/16 06/21/16 06/20/16 History Metformin HCl [Metformin HCl ER] 500 mg PO BID 06/21/16 06/21/16 06/20/16 History amLODIPine [Norvasc] 5 mg PO DAILY 06/21/16 06/21/16 06/20/16 History Albuterol Sulfate [Albuterol 0.63% 0.63 mg IH TID PRN #1 box 06/22/16 Unknown Rx NEBS] Azithromycin [Zithromax TAB] 250 mg PO QDAY #6 tablet 06/22/16 Unknown Rx Benzonatate [Tessalon Perles] 100 mg PO Q8HR #30 capsule 06/22/16 Unknown Rx Ipratropium [Atrovent NEB] 0.5 mg IH Q8HRT #1 box 06/22/16 Unknown Rx Nebulizer and Compressor 1 each MC DAILY PRN #1 each 06/22/16 Unknown Rx [Devilbiss Pulmoneb Lt Comp-Neb] Prednisone [predniSONE 10 mg 10 mg PO .TAPER #1 tab.ds.pk 06/22/16 Unknown Rx (6-Day Pack, 21 Tabs)] Active Meds: Active Medications Dextrose (D5w) 1,000 mls @ 75 mls/hr IV DIRECT YISEL Exam - Constitutional Vitals: Temp Pulse Resp BP Pulse Ox 99.6 F 71 18 103/71 96 02/09/19 14:03 02/09/19 21:38 02/09/19 18:42 02/09/19 15:30 02/09/19 22:18 General appearance: Present: no acute distress, well-nourished - EENT Eyes: Present: PERRL ENT: hearing intact, clear oral mucosa - Neck Neck: Present: supple, normal ROM - Respiratory Respiratory effort: normal Respiratory: bilateral: CTA - Cardiovascular Heart Sounds: Present: S1 & S2. Absent: rub, click - Extremities Extremities: pulses symmetrical, No edema Peripheral Pulses: within normal limits - Abdominal General gastrointestinal: Present: soft, non-tender, non-distended, normal bowel sounds Female genitourinary: Present: normal - Integumentary Integumentary: Present: clear, warm, dry - Musculoskeletal Musculoskeletal: gait normal, strength equal bilaterally - Psychiatric Psychiatric: appropriate mood/affect, intact judgment & insight - Neurologic Neurologic: CNII-XII intact, moves all extremities Results - Labs CBC & Chem 7: 02/09/19 09:16 02/09/19 19:03 Labs: Laboratory Last Values WBC 14.6 K/mm3 (4.5-11.0) H 02/09/19 09:16 RBC 2.48 M/mm3 (3.65-5.03) L 02/09/19 09:16 Hgb 8.2 gm/dl (10.1-14.3) L 02/09/19 09:16 Hct 25.4 % (30.3-42.9) L 02/09/19 09:16 MCV 102 fl (79-97) H 02/09/19 09:16 MCH 33 pg (28-32) H 02/09/19 09:16 MCHC 32 % (30-34) 02/09/19 09:16 RDW 16.1 % (13.2-15.2) H 02/09/19 09:16 Plt Count 140 K/mm3 (140-440) 02/09/19 09:16 Add Manual Diff Complete 02/09/19 09:16 Total Counted 100 02/09/19 09:16 Seg Neutrophils % [employer] 02/09/19 09:16 Seg Neuts % (Manual) 94.0 % (40.0-70.0) H 02/09/19 09:16 Band Neutrophils % 5.0 % 02/09/19 09:16 Lymphocytes % (Manual) 1.0 % (13.4-35.0) L 02/09/19 09:16 Reactive Lymphs % (Man) 0 % 02/09/19 09:16 Monocytes % (Manual) 0 % (0.0-7.3) 02/09/19 09:16 Eosinophils % (Manual) 0 % (0.0-4.3) 02/09/19 09:16 Basophils % (Manual) 0 % (0.0-1.8) 02/09/19 09:16 Metamyelocytes % 0 % 02/09/19 09:16 Myelocytes % 0 % 02/09/19 09:16 Promyelocytes % 0 % 02/09/19 09:16 Blast Cells % 0 % 02/09/19 09:16 Nucleated RBC % 1.0 % (0.0-0.9) H 02/09/19 09:16 Seg Neutrophils # Man 13.7 K/mm3 (1.8-7.7) H 02/09/19 09:16 Band Neutrophils # 0.7 K/mm3 02/09/19 09:16 Lymphocytes # (Manual) 0.1 K/mm3 (1.2-5.4) L 02/09/19 09:16 Abs React Lymphs (Man) 0.0 K/mm3 02/09/19 09:16 Monocytes # (Manual) 0.0 K/mm3 (0.0-0.8) 02/09/19 09:16 Eosinophils # (Manual) 0.0 K/mm3 (0.0-0.4) 02/09/19 09:16 Basophils # (Manual) 0.0 K/mm3 (0.0-0.1) 02/09/19 09:16 Metamyelocytes # 0.0 K/mm3 02/09/19 09:16 Myelocytes # 0.0 K/mm3 02/09/19 09:16 Promyelocytes # 0.0 K/mm3 02/09/19 09:16 Blast Cells # 0.0 K/mm3 02/09/19 09:16 WBC Morphology Not Reportable 02/09/19 09:16 Hypersegmented Neuts Not Reportable 02/09/19 09:16 Hyposegmented Neuts Not Reportable 02/09/19 09:16 Hypogranular Neuts Not Reportable 02/09/19 09:16 Smudge Cells Not Reportable 02/09/19 09:16 Toxic Granulation Not Reportable 02/09/19 09:16 Toxic Vacuolation Not Reportable 02/09/19 09:16 Dohle Bodies Not Reportable 02/09/19 09:16 Pelger-Huet Anomaly Not Reportable 02/09/19 09:16 Casey Rods Not Reportable 02/09/19 09:16 Platelet Estimate Consistent w auto 02/09/19 09:16 Clumped Platelets Not Reportable 02/09/19 09:16 Plt Clumps, EDTA Not Reportable 02/09/19 09:16 Large Platelets Not Reportable 02/09/19 09:16 Giant Platelets Not Reportable 02/09/19 09:16 Platelet Satelliting Not Reportable 02/09/19 09:16 Plt Morphology Comment Not Reportable 02/09/19 09:16 RBC Morphology Not Reportable 02/09/19 09:16 Dimorphic RBCs Not Reportable 02/09/19 09:16 Polychromasia Few 02/09/19 09:16 Hypochromasia Not Reportable 02/09/19 09:16 Poikilocytosis Not Reportable 02/09/19 09:16 Anisocytosis Few 02/09/19 09:16 Microcytosis Not Reportable 02/09/19 09:16 Macrocytosis 1+ 02/09/19 09:16 Spherocytes Few 02/09/19 09:16 Pappenheimer Bodies Not Reportable 02/09/19 09:16 Sickle Cells Not Reportable 02/09/19 09:16 Target Cells Not Reportable 02/09/19 09:16 Tear Drop Cells Few 02/09/19 09:16 Ovalocytes Few 02/09/19 09:16 Helmet Cells Not Reportable 02/09/19 09:16 [place] Bodies Not Reportable 02/09/19 09:16 [place] Rings Not Reportable 02/09/19 09:16 Belle Cells Not Reportable 02/09/19 09:16 Bite Cells Not Reportable 02/09/19 09:16 Crenated Cell Not Reportable 02/09/19 09:16 Elliptocytes Not Reportable 02/09/19 09:16 Acanthocytes (Spur) Not Reportable 02/09/19 09:16 Rouleaux Not Reportable 02/09/19 09:16 Hemoglobin C Crystals Not Reportable 02/09/19 09:16 Schistocytes Not Reportable 02/09/19 09:16 Malaria parasites Not Reportable 02/09/19 09:16 Emanuel Bodies Not Reportable 02/09/19 09:16 Hem Pathologist Commnt No 02/09/19 09:16 PT 17.8 Sec. (12.2-14.9) H 02/09/19 09:16 INR 1.49 (0.87-1.13) H 02/09/19 09:16 APTT 36.0 Sec. (24.2-36.6) 02/09/19 09:16 Sodium 131 mmol/L (137-145) L 02/09/19 19:03 Potassium 5.7 mmol/L (3.6-5.0) H 02/09/19 19:03 Chloride 93.6 mmol/L (98-107) L 02/09/19 19:03 Carbon Dioxide 19 mmol/L (22-30) L 02/09/19 19:03 Anion Gap 24 mmol/L 02/09/19 19:03 BUN 111 mg/dL (7-17) H 02/09/19 19:03 Creatinine 7.0 mg/dL (0.7-1.2) H 02/09/19 19:03 Estimated GFR 7 ml/min 02/09/19 19:03 BUN/Creatinine Ratio 16 % 02/09/19 19:03 Glucose 48 mg/dL (65-100) L 02/09/19 19:03 POC Glucose 61 (70-105) L 02/09/19 21:59 Calcium 8.6 mg/dL (8.4-10.2) 02/09/19 19:03 Phosphorus 4.10 mg/dL (2.5-4.5) 02/09/19 12:47 Total Bilirubin 2.90 mg/dL (0.1-1.2) H 02/09/19 09:16 AST 20 units/L (5-40) 02/09/19 09:16 ALT 10 units/L (7-56) 02/09/19 09:16 Alkaline Phosphatase 115 units/L (35-129) 02/09/19 09:16 Ammonia 61.0 umol/L (25-60) H 02/09/19 09:16 Total Creatine Kinase 264 units/L (30-135) H 02/09/19 09:16 CK-MB (CK-2) 2.1 ng/mL (0.0-4.0) 02/09/19 09:16 CK-MB (CK-2) Rel Index 0.7 (0-4) 02/09/19 09:16 Troponin T 0.073 ng/mL (0.00-0.029) H 02/09/19 09:16 Total Protein 8.8 g/dL (6.3-8.2) H 02/09/19 09:16 Albumin 2.6 g/dL (3.9-5) L 02/09/19 09:16 Albumin/Globulin Ratio 0.4 % 02/09/19 09:16 Triglycerides 65 mg/dL (2-149) 02/09/19 09:16 Cholesterol 47 mg/dL (50-199) L 02/09/19 09:16 LDL Cholesterol Direct 13 mg/dL (50-130) L 02/09/19 09:16 HDL Cholesterol 27 mg/dL (40-59) L 02/09/19 09:16 Cholesterol/HDL Ratio 1.74 % 02/09/19 09:16 TSH 5.570 mlU/mL (0.270-4.200) H 02/09/19 09:16 Free T4 0.85 ng/dL (0.76-1.46) 02/09/19 09:16 Urine Color Shamika (Yellow) 02/09/19 14:30 Urine Turbidity Cloudy (Clear) 02/09/19 14:30 Urine pH 5.0 (5.0-7.0) 02/09/19 14:30 Ur Specific [place] 1.015 (1.003-1.030) 02/09/19 14:30 Urine Protein 30 mg/dl mg/dL (Negative) 02/09/19 14:30 Urine Glucose (UA) Neg mg/dL (Negative) 02/09/19 14:30 Urine Ketones Neg mg/dL (Negative) 02/09/19 14:30 Urine Blood Sm (Negative) 02/09/19 14:30 Urine Nitrite Neg (Negative) 02/09/19 14:30 Urine Bilirubin Neg (Negative) 02/09/19 14:30 Urine Urobilinogen < 2.0 mg/dL (<2.0) 02/09/19 14:30 Ur Leukocyte Esterase Mod (Negative) 02/09/19 14:30 Urine WBC (Auto) 32.0 /HPF (0.0-6.0) H 02/09/19 14:30 Urine RBC (Auto) 29.0 /HPF (0.0-6.0) 02/09/19 14:30 U Epithel Cells (Auto) 3.0 /HPF (0-13.0) 02/09/19 14:30 Urine Bacteria (Auto) 3+ /HPF (Negative) 02/09/19 14:30 Urine WBC Clumps 2+ /HPF 02/09/19 14:30 Urine Mucus Few /HPF 02/09/19 14:30 Urine Creatinine 162.4 mg/dL (0.1-20.0) H 02/09/19 14:30 Protein/Creatinin Ratio 0.30 02/09/19 14:30 Urine Sodium 38 mmol/L 02/09/19 14:30 Urine Total Protein 49 mg/dL (5-11.8) H 02/09/19 14:30 Urine Opiates Screen Presumptive negative 02/09/19 14:30 Urine Methadone Screen Presumptive negative 02/09/19 14:30 Ur Barbiturates Screen Presumptive negative 02/09/19 14:30 Ur Phencyclidine Scrn Presumptive negative 02/09/19 14:30 Ur Amphetamines Screen Presumptive negative 02/09/19 14:30 U Benzodiazepines Scrn Presumptive negative 02/09/19 14:30 Urine Cocaine Screen Presumptive negative 02/09/19 14:30 U Marijuana (THC) Screen Presumptive negative 02/09/19 14:30 Drugs of Abuse Note Disclamer 02/09/19 14:30 Plasma/Serum Alcohol < 0.01 % (0-0.07) 02/09/19 09:16 Hepatitis A IgM Ab Non-reactive (NonReactive) 02/09/19 12:47 Hep Bs Antigen Non-reactive (Negative) 02/09/19 12:47 Hep B Core IgM Ab Non-reactive (NonReactive) 02/09/19 12:47 Hepatitis C Antibody Non-reactive (NonReactive) 02/09/19 12:47 Short CBC 02/09/19 Range/Units 09:16 WBC 14.6 H (4.5-11.0) K/mm3 Hgb 8.2 L (10.1-14.3) gm/dl Hct 25.4 L (30.3-42.9) % Plt Count 140 (140-440) K/mm3 BMP 02/09/19 02/09/19 02/09/19 09:16 12:47 19:03 Sodium 131 L 131 L 131 L Potassium 6.0 H 5.6 H 5.7 H Chloride 91.4 L 91.8 L 93.6 L Carbon Dioxide 18 L 17 L 19 L BUN 115 H 117 H 111 H Creatinine 6.8 H 6.5 H 7.0 H Glucose 90 50 L 48 L Calcium 8.8 8.8 8.6 Cardiac Enzymes 02/09/19 Range/Units 09:16 Total Creatine Kinase 264 H (30-135) units/L CK-MB (CK-2) 2.1 (0.0-4.0) ng/mL Troponin T 0.073 H (0.00-0.029) ng/mL Liver Function 02/09/19 Range/Units 09:16 Total Bilirubin 2.90 H (0.1-1.2) mg/dL AST 20 (5-40) units/L ALT 10 (7-56) units/L Alkaline Phosphatase 115 (35-129) units/L Albumin 2.6 L (3.9-5) g/dL Urine 02/09/19 Range/Units 14:30 Urine Color Shamika (Yellow) Urine pH 5.0 (5.0-7.0) Ur Specific [place] 1.015 (1.003-1.030) Urine Protein 30 mg/dl (Negative) mg/dL Urine Glucose (UA) Neg (Negative) mg/dL - Imaging and Cardiology CT Scan - head: report reviewed (NAF) Assessment and Plan Advance Directives: Yes (FC) VTE prophylaxis?: Chemical Plan of care discussed with patient/family: Yes - Patient Problems (1) Acute encephalopathy Current Visit: Yes Status: Acute Plan to address problem: Secondary to Uremia (2) JESÚS (acute kidney injury) Current Visit: Yes Status: Acute Plan to address problem: Last creatinine was 1.6 in 2017.Cr now 6.5 IV Fluids for now Nephrology consulted Patient maybe in ESRD needing dialysis (3) Hyperkalemia Current Visit: Yes Status: Acute Plan to address problem: Treated in ED (4) IDDM (insulin dependent diabetes mellitus) Current Visit: Yes Status: Chronic Plan to address problem: Coverage for now Patient is hypoglycemic (5) HTN (hypertension) Current Visit: Yes Status: Chronic Qualifiers: Hypertension type: essential hypertension Qualified Code(s): I10 - Essential (primary) hypertension Plan to address problem: Cont antihypertensives (6) DVT prophylaxis Current Visit: Yes Status: Acute Plan to address problem: Heparin and GI prophylaxis
[2019-02-09] MEDS ORDERED: FLUTICASONE PROPIONATE NASAL SPRAY 16 GM NS PRN (22:56)
[2019-02-09] MEDS ORDERED: ALBUTEROL SULFATE 0.63 MG IH PRN (22:56)
[2019-02-09] MEDS ORDERED: oxyCODONE /ACETAMINOPHEN 5-325MG TAB PO PRN (22:59)
[2019-02-09] MEDS ORDERED: HYDROmorphone 1 MG/1 ML INJ IV PRN (22:59)
[2019-02-09] MEDS ORDERED: ONDANSETRON 4 MG/2 ML INJ IV PRN (22:59)
[2019-02-09] MEDS ORDERED: DEXTROSE 5% IN WATER 1,000 ML IV SCH (23:00)
[2019-02-09] MEDS: GABAPENTIN 400 MG CAP PO SCH (23:54)
[2019-02-10] MEDS: IPRATROPIUM 0.02% NEBU 2.5 ML IH SCH ×2 (00:33→07:55)
--- NOTE | 2019-02-10 00:49 | Ultrasound Report ---
Renal ultrasound. 02/09/2019. HISTORY: Acute renal insufficiency. FINDINGS: Right kidney measures 11.7 x 4.9 cm. Cortex measures 1.3 cm. Left kidney measures 12 x 5.5 cm. Cortex measures 1.3 cm. Cortical echogenicity is normal. Negative f or mass or obstruction. The bladder contains urine. IMPRESSION: Unremarkable renal ultrasound. Signer Name: Ty Cervantes MD Signed: 02/10/2019 12:45 AM Workstation Name: [email or web address]
[2019-02-10] MEDS ORDERED: ALBUTEROL 2.5 MG/3 ML NEBU IH PRN (01:36)
[2019-02-10] MEDS ORDERED: DEXTROSE 50% IN WATER (25GM) 50 ML SYRINGE IV ONE ×3 (03:01→06:40)
[2019-02-10] MEDS: GABAPENTIN 400 MG CAP PO SCH ×3 (06:13→21:53)
[2019-02-10] MEDS ORDERED: CALCIUM GLUCONATE 2,000 MG in SODIUM CHLORIDE 0.9% 100 ML IV ONE (07:08)
--- NOTE | 2019-02-10 07:27 | Event Note ---
Date: 02/10/19 CODE MET called pt found to be unresponsive and hypoglycemia and haveing problems with oxygenation. most likely secondary to sepsis and OHS. hyp oglycemia despite D5 since 8pm. change to D10 and IMICU for closer observation
[2019-02-10 08:25] LABS: Albumin 2.4 g/dL (3.9-5); Calcium 8.3 mg/dL (8.4-10.2)
[2019-02-10] MEDS: DEXTROSE 10% IN WATER 1,000 ML IV SCH ×2 (08:30→23:13)
[2019-02-10 09:53] LABS: Hematocrit 26.9 % (30.3-42.9); Hemoglobin 8.5 gm/dl (10.1-14.3); Mean Corpuscular HGB Conc 32 % (30-34); Mean Corpuscular Volume 104 fl (79-97); Platelet Count 140 K/mm3 (140-440); Red Cell Distribution Width 16.6 % (13.2-15.2)
[2019-02-10] MEDS ORDERED: LISINOPRIL 40 MG TAB PO SCH (10:00)
[2019-02-10] MEDS ORDERED: amLODIPine 5 MG TAB PO SCH (10:00)
[2019-02-10] MEDS: INSULIN LISPRO 100 UNIT/ML SUB-Q SCH ×3 (10:28→21:51)
[2019-02-10 11:20] LABS: Basophils % (Manual) 0 % (0.0-1.8); Eosinophils % (Manual) 0 % (0.0-4.3); Total Cells Counted 100
[2019-02-10 11:22] LABS: Target Cells Few
[2019-02-10 11:23] LABS: Platelet Estimate Consistent w Auto
[2019-02-10] MEDS ORDERED: HEPARIN/NS 5000 UNIT/500ML 500 ML IR ONE (12:00)
[2019-02-10] MEDS ORDERED: fentaNYL 100 MCG/2 ML INJ ONE (12:00)
[2019-02-10] MEDS ORDERED: HEPARIN 10,000 UNIT/1 ML VIAL ONE (12:00)
[2019-02-10] MEDS ORDERED: LIDOCAINE (2%) 20 MG/1 ML VIAL 20 ML MDV INFILTRATI ONE (12:00)
[2019-02-10] MEDS ORDERED: MIDAZOLAM 2 MG/2 ML INJ ONE (12:00)
--- NOTE | 2019-02-10 12:00 | Progress Note ---
Assessment and Plan ssessment and Plan Impression * Patient most likely has acute on chronic renal failure. Her serum creatinine was 1.6 back in 2017. * Respiratory failure * Morbid obesity * Hyperkalemia * Metabolic acidosis * Hypoglycemia * Anemia Recommendations * Patient remains oliguric and clinically volume overloaded. She remains hyperkalemic as well. No significant improvement in renal function despite hydration. Fractional excretion of sodium was approximately 1.2%. Urine shows 1+ dipstick protein and small blood. * She may have developed ATN on top for chronic kidney disease. * Need to initiate renal replacement therapy. Discussed with patient's 2 daughters at bedside. They are in agreement * Vascular surgery has been consulted. Discussed with Dr. Nolen regarding access placement * Initiate hemodialysis after access. * Renal ultrasound is normal. No obstruction. * Follow up results of vasculitis workup * Monitor fluid status and electrolytes closely * Avoid nephrotoxins Subjective Date of service: 02/10/19 Interval history: Patient is awake and alert. Currently on BiPAP mask with 40% FiO2. She was hypoglycemic earlier today. Currently on a D10 drip. Patient being transferred to [facility] for close monitoring. Objective - Vital Signs Vital signs: Vital Signs - 12hr 02/10/19 02/10/19 02/10/19 00:24 03:38 05:00 Temperature 99.8 F H 100.2 F H Pulse Rate 67 68 68 Pulse Rate [ Anterior Bilateral Throughout] Respiratory 16 12 Rate Respiratory Rate [Anterior Bilateral Throughout] Blood Pressure 119/75 114/67 O2 Sat by Pulse 100 99 Oximetry 02/10/19 02/10/19 02/10/19 08:00 10:00 10:23 Temperature Pulse Rate 68 Pulse Rate [ 68 Anterior Bilateral Throughout] Respiratory 16 Rate Respiratory 12 Rate [Anterior Bilateral Throughout] Blood Pressure O2 Sat by Pulse 98 Oximetry 02/10/19 11:51 Temperature Pulse Rate 64 Pulse Rate [ Anterior Bilateral Throughout] Respiratory Rate Respiratory Rate [Anterior Bilateral Throughout] Blood Pressure 80/47 O2 Sat by Pulse 96 Oximetry - General Appearance General appearance: well-developed, well-nourished, appears stated age, obese, other (currently on a BiPAP mask) EENT: PERRL, mucous membranes moist Neck: no JVD, no thyromegaly, no carotid bruit, supple Respiratory: Present: Clear to Ascultation Cardiology: regular, normal heart rate, S1S2, no murmurs Gastrointestinal: normoactive bowel sounds, other (abdominal wall edema noted) Integumentary: other (2+ edema) - Lab 02/10/19 09:28 02/10/19 10:32 Most recent lab results Calcium 8.3 mg/dL (8.4-10.2) L 02/10/19 06:39 Phosphorus 4.10 mg/dL (2.5-4.5) 02/09/19 12:47 Urine Creatinine 162.4 mg/dL (0.1-20.0) H 02/09/19 14:30 Urine Sodium 38 mmol/L 02/09/19 14:30 Urine Total Protein 49 mg/dL (5-11.8) H 02/09/19 14:30 Medications & Allergies - Medications Allergies/Adverse Reactions: Allergies No Known Allergies Allergy (Verified 06/21/16 01:02) Home Medications: Home Medications Medication Instructions Recorded Confirmed Last Taken Type Fluticasone [Flonase] 50 mcg IH Q4-6H PRN 06/21/16 02/10/19 Unknown History Gabapentin [Neurontin] 800 mg PO Q8H 06/21/16 02/10/19 06/19/16 History Glimepiride [Amaryl] 2 mg PO QAM 06/21/16 02/10/19 06/20/16 History Insulin Glargine,Hum.rec.anlog 100 units SUB-Q QHS 06/21/16 02/10/19 06/19/16 History [Lantus Solostar] Lisinopril [Zestril TAB] 40 mg PO QDAY 06/21/16 02/10/19 06/20/16 History Metformin HCl [Metformin HCl ER] 500 mg PO BID 06/21/16 02/10/19 06/20/16 History amLODIPine [Norvasc] 5 mg PO DAILY 06/21/16 02/10/19 06/20/16 History Albuterol Sulfate [Albuterol 0.63% 0.63 mg IH TID PRN #1 box 06/22/16 02/10/19 Unknown Rx NEBS] Azithromycin [Zithromax TAB] 250 mg PO QDAY #6 tablet 06/22/16 02/10/19 Unknown Rx Benzonatate [Tessalon Perles] 100 mg PO Q8HR #30 capsule 06/22/16 02/10/19 Unknown Rx Ipratropium [Atrovent NEB] 0.5 mg IH Q8HRT #1 box 06/22/16 02/10/19 Unknown Rx Nebulizer and Compressor 1 each MC DAILY PRN #1 each 06/22/16 02/10/19 Unknown Rx [Devilbiss Pulmoneb Lt Comp-Neb] Prednisone [predniSONE 10 mg 10 mg PO .TAPER #1 tab.ds.pk 06/22/16 02/10/19 Unknown Rx (6-Day Pack, 21 Tabs)] Active Medications: Generic Name Dose Route Start Last Admin Trade Name Freq PRN Reason Stop Dose Admin Acetaminophen 650 mg 02/09/19 22:59 Tylenol PO Q4H PRN Pain MILD(1-3)/Fever >100.5/ARREDONDO Albuterol 1.25 mg 02/10/19 01:36 Proventil IH TIDRT PRN Shortness Of Breath Albuterol/Ipratropium 1 ampul 02/10/19 14:00 Duoneb *Not For Prn Use* IH Q6HRT YISEL Amlodipine Besylate 5 mg 02/10/19 10:00 02/10/19 11:07 Amlodipine PO Not Given DAILY YISEL Fluticasone Propionate 50 mcg 02/09/19 22:56 Flonase NS QID PRN allergies Gabapentin 800 mg 02/09/19 23:00 02/10/19 06:13 Gabapentin PO 800 mg Q8HR YISEL Administration Hydromorphone HCl 0.25 mg 02/09/19 22:59 Dilaudid IV Q3H PRN Pain, Moderate (4-6) Dextrose 1,000 mls @ 75 mls/hr 02/10/19 08:00 02/10/19 08:30 D10w IV 75 mls/hr DIRECT YISEL Administration Insulin Human Lispro 0 unit 02/10/19 07:30 02/10/19 10:28 Humalog SUB-Q Not Given ACHS [facility] Protocol Lisinopril 40 mg 02/10/19 10:00 02/10/19 11:07 Zestril PO Not Given QDAY YISEL Ondansetron HCl 4 mg 02/09/19 22:59 Zofran IV Q8H PRN Nausea And Vomiting Oxycodone/Acetaminophen 1 tab 02/09/19 22:59 Percocet 5/325 PO Q6H PRN Pain, Moderate (4-6) Sodium Chloride 10 ml 02/10/19 10:00 02/10/19 10:30 Sodium Chloride Flush Syringe 10 Ml IV 10 ml BID YISEL Administration Sodium Chloride 10 ml 02/09/19 22:59 02/10/19 06:44 Sodium Chloride Flush Syringe 10 Ml IV 10 ml PRN PRN Administration LINE FLUSH
[2019-02-10] MEDS ORDERED: SODIUM CHLORIDE 0.9% 100 ML IV PRN (12:05)
[2019-02-10] MEDS ORDERED: HEPARIN 10,000 UNITS/10 ML VIAL ONE (12:11)
[2019-02-10] MEDS ORDERED: SODIUM CHLORIDE 0.9% 1000 ML 500 ML IV ONE (13:00)
[2019-02-10] MEDS ORDERED: SODIUM CHLORIDE 0.9% 500 ML 500 ML ONE (13:01)
--- NOTE | 2019-02-10 13:32 | Operative Report ---
Operative Report Operative Report: Exam: Ultrasound and fluoroscopic guided placement of Vas-Cath Clinical indication: Patient with acute renal failure and volume overload requiring emergent dialysis access Date: 02/10/2019 Procedure: Following an explanation of the risks, benefits and alternatives; written informed consent was obtained. The patient was brought to the angiographic suite and placed in supine position on the examination table. Initial ultrasound evaluation of her right groin demonstrated a patent right common femoral vein. The patient's right groin and thigh were prepped and draped in the usual sterile fashion. 1% lidocaine was used for anesthesia. Under ultrasound guidance, the right common femoral vein was cannulated with a 7 cm 18-gauge needle. A 0.035 guidewire was advanced centrally under fluoroscopy and kept below the level of the right atrium. The needle was removed and following serial dilation over the guidewire, a 30 cm dialysis catheter was placed over the guidewire under fluoroscopy and advanced centrally. The guidewire was removed. Nonpulsatile blood returned from all 3 ports. The catheter was securely flushed and locked with appropriate volumes of heparin. The catheter was securely fastened skin surface using 2-0 Ethilon suture and a sterile dressing applied. The patient tolerated the procedure well. There were no immediate post procedure complications. Sedation was not utilized secondary to patient's obtunded status. Continuous cardio pulmonary monitoring was utilized. Impression: Ultrasound and fluoroscopic guided placement of a 30 cm dialysis catheter via the right common femoral vein.
[2019-02-10] MEDS: ALBUMIN HUMAN 25% (25 GM/100 ML) INJ IV PRN ×2 (14:50→15:56)
--- NOTE | 2019-02-10 15:10 | Progress Note ---
Assessment and Plan Assessment and plan: 68F brought in by family for AMS, less responsive CTH neg Renal US neg JESÚS, w severe uremia, Hyperkalemia, Hyponatremia -Sp Vas cath for urgent HD -sp calcium, albuterol, and insulin and D50w renal u/s neg hold padmini DM with hypoglycemia received Sulfonylureas 02/09, d10 drip hold Dm meds SIRS, w hypotension and organ dysfunction empiric abx, UA shows few WBC, highly doubt UTI, highly doubt infection at this time, but patient is very ill so she is being covered empirically with antibiotics. fup urine cx, obtain cxr, fup blood cx sp IVF bolus hold Bp meds acute hypoxic resp failure likely due to fluid overload cont rescue bipap DVT ppx- heparin sq Critical care time 35 minutes History Interval history: Patient remains confused, minimally responsive Remains BiPAP dependent Has been hypotensive requiring bolus, Was hypoglycemic requiring dextrose No cough Hospitalist Physical - Physical exam Narrative exam: General.: Moderate to severe respiratory distress, obese HEENT: Moist mucous membranes, extraocular muscles intact, no lymphadenopathy Neck: supple Cardiac: S1-S2 heard Lungs: clear to auscultation bilaterally Abdomen: soft , nontender, nondistended, bowel sounds positive Extremities: no edema clubbing or cyanosis Skin: no rash or lesions Neurologic: Patient is minimally responsive Psych: Patient is minimally responsive, BiPAP dependent - Constitutional Vitals: Temp Pulse Resp BP Pulse Ox 100.2 F H 64 16 88/43 96 02/10/19 03:38 02/10/19 11:51 02/10/19 10:23 02/10/19 12:21 02/10/19 11:51 General appearance: Present: no acute distress, well-nourished Results - Labs CBC & Chem 7: 02/10/19 09:28 02/11/19 04:48 Labs: Laboratory Last Values WBC 14.7 K/mm3 (4.5-11.0) H 02/10/19 09:28 RBC 2.60 M/mm3 (3.65-5.03) L 02/10/19 09:28 Hgb 8.5 gm/dl (10.1-14.3) L 02/10/19 09:28 Hct 26.9 % (30.3-42.9) L 02/10/19 09:28 MCV 104 fl (79-97) H 02/10/19 09:28 MCH 33 pg (28-32) H 02/10/19 09:28 MCHC 32 % (30-34) 02/10/19 09:28 RDW 16.6 % (13.2-15.2) H 02/10/19 09:28 Plt Count 140 K/mm3 (140-440) 02/10/19 09:28 Lymph % (Auto) Manager Local 02/10/19 09:28 [place] % (Auto) Manager Local 02/10/19 09:28 Eos % (Auto) Manager Local 02/10/19 09:28 Baso % (Auto) Manager Local 02/10/19 09:28 Lymph # Manager Local 02/10/19 09:28 Emanuel # Manager Local 02/10/19 09:28 Eos # Manager Local 02/10/19 09:28 Baso # Manager Local 02/10/19 09:28 Add Manual Diff Complete 02/10/19 09:28 Total Counted 100 02/10/19 09:28 Seg Neutrophils % Manager Local 02/10/19 09:28 Seg Neuts % (Manual) 96.0 % (40.0-70.0) H 02/10/19 09:28 Band Neutrophils % 0 % 02/10/19 09:28 Lymphocytes % (Manual) 1.0 % (13.4-35.0) L 02/10/19 09:28 Reactive Lymphs % (Man) 0 % 02/10/19 09:28 Monocytes % (Manual) 2.0 % (0.0-7.3) 02/10/19 09:28 Eosinophils % (Manual) 0 % (0.0-4.3) 02/10/19 09:28 Basophils % (Manual) 0 % (0.0-1.8) 02/10/19 09:28 Metamyelocytes % 1.0 % 02/10/19 09:28 Myelocytes % 0 % 02/10/19 09:28 Promyelocytes % 0 % 02/10/19 09:28 Blast Cells % 0 % 02/10/19 09:28 Nucleated RBC % 3.0 % (0.0-0.9) H 02/10/19 09:28 Seg Neutrophils # Manager Local 02/10/19 09:28 Seg Neutrophils # Man 14.1 K/mm3 (1.8-7.7) H 02/10/19 09:28 Band Neutrophils # 0.0 K/mm3 02/10/19 09:28 Lymphocytes # (Manual) 0.1 K/mm3 (1.2-5.4) L 02/10/19 09:28 Abs React Lymphs (Man) 0.0 K/mm3 02/10/19 09:28 Monocytes # (Manual) 0.3 K/mm3 (0.0-0.8) 02/10/19 09:28 Eosinophils # (Manual) 0.0 K/mm3 (0.0-0.4) 02/10/19 09:28 Basophils # (Manual) 0.0 K/mm3 (0.0-0.1) 02/10/19 09:28 Metamyelocytes # 0.1 K/mm3 02/10/19 09:28 Myelocytes # 0.0 K/mm3 02/10/19 09:28 Promyelocytes # 0.0 K/mm3 02/10/19 09:28 Blast Cells # 0.0 K/mm3 02/10/19 09:28 WBC Morphology Not Reportable 02/10/19 09:28 Hypersegmented Neuts Not Reportable 02/10/19 09:28 Hyposegmented Neuts Not Reportable 02/10/19 09:28 Hypogranular Neuts Not Reportable 02/10/19 09:28 Smudge Cells Not Reportable 02/10/19 09:28 Toxic Granulation Not Reportable 02/10/19 09:28 Toxic Vacuolation Not Reportable 02/10/19 09:28 Dohle Bodies Not Reportable 02/10/19 09:28 Pelger-Huet Anomaly Not Reportable 02/10/19 09:28 Casey Rods Not Reportable 02/10/19 09:28 Platelet Estimate Consistent w auto 02/10/19 09:28 Clumped Platelets Not Reportable 02/10/19 09:28 Plt Clumps, EDTA Not Reportable 02/10/19 09:28 Large Platelets Not Reportable 02/10/19 09:28 Giant Platelets Not Reportable 02/10/19 09:28 Platelet Satelliting Not Reportable 02/10/19 09:28 Plt Morphology Comment Not Reportable 02/10/19 09:28 RBC Morphology Not Reportable 02/10/19 09:28 Dimorphic RBCs Not Reportable 02/10/19 09:28 Polychromasia Few 02/10/19 09:28 Hypochromasia Not Reportable 02/10/19 09:28 Poikilocytosis Not Reportable 02/10/19 09:28 Anisocytosis Not Reportable 02/10/19 09:28 Microcytosis Not Reportable 02/10/19 09:28 Macrocytosis Not Reportable 02/10/19 09:28 Spherocytes Not Reportable 02/10/19 09:28 Pappenheimer Bodies Not Reportable 02/10/19 09:28 Sickle Cells Not Reportable 02/10/19 09:28 Target Cells Few 02/10/19 09:28 Tear Drop Cells Not Reportable 02/10/19 09:28 Ovalocytes Not Reportable 02/10/19 09:28 Helmet Cells Not Reportable 02/10/19 09:28 [place] Bodies Not Reportable 02/10/19 09:28 [place] Rings Not Reportable 02/10/19 09:28 [place] Cells Not Reportable 02/10/19 09:28 Bite Cells Not Reportable 02/10/19 09:28 Crenated Cell Not Reportable 02/10/19 09:28 Elliptocytes Not Reportable 02/10/19 09:28 Acanthocytes (Spur) Not Reportable 02/10/19 09:28 Rouleaux Not Reportable 02/10/19 09:28 Hemoglobin C Crystals Not Reportable 02/10/19 09:28 Schistocytes Not Reportable 02/10/19 09:28 Malaria parasites Not Reportable 02/10/19 09:28 Emanuel Bodies Not Reportable 02/10/19 09:28 Hem Pathologist Commnt No 02/10/19 09:28 PT 17.8 Sec. (12.2-14.9) H 02/09/19 09:16 INR 1.49 (0.87-1.13) H 02/09/19 09:16 APTT 36.0 Sec. (24.2-36.6) 02/09/19 09:16 Sodium 130 mmol/L (137-145) L 02/10/19 06:39 Potassium 5.9 mmol/L (3.6-5.0) H 02/10/19 10:32 Chloride 89.4 mmol/L (98-107) L 02/10/19 06:39 Carbon Dioxide 17 mmol/L (22-30) L 02/10/19 06:39 Anion Gap 30 mmol/L 02/10/19 06:39 BUN 124 mg/dL (7-17) H 02/10/19 06:39 Creatinine 6.8 mg/dL (0.7-1.2) H 02/10/19 06:39 Estimated GFR 7 ml/min 02/10/19 06:39 BUN/Creatinine Ratio 18 % 02/10/19 06:39 Glucose 120 mg/dL (65-100) H 02/10/19 06:39 POC Glucose 74 (70-105) 02/10/19 12:21 Hemoglobin A1c 8.5 % (4-6) H 02/09/19 23:24 Calcium 8.3 mg/dL (8.4-10.2) L 02/10/19 06:39 Phosphorus 4.10 mg/dL (2.5-4.5) 02/09/19 12:47 Total Bilirubin 3.10 mg/dL (0.1-1.2) H 02/10/19 06:39 AST 39 units/L (5-40) 02/10/19 06:39 ALT 12 units/L (7-56) 02/10/19 06:39 Alkaline Phosphatase 112 units/L (35-129) 02/10/19 06:39 Ammonia 61.0 umol/L (25-60) H 02/09/19 09:16 Total Creatine Kinase 264 units/L (30-135) H 02/09/19 09:16 CK-MB (CK-2) 2.1 ng/mL (0.0-4.0) 02/09/19 09:16 CK-MB (CK-2) Rel Index 0.7 (0-4) 02/09/19 09:16 Troponin T 0.073 ng/mL (0.00-0.029) H 02/09/19 09:16 Total Protein 8.3 g/dL (6.3-8.2) H 02/10/19 06:39 Albumin 2.4 g/dL (3.9-5) L 02/10/19 06:39 Albumin/Globulin Ratio 0.4 % 02/10/19 06:39 Triglycerides 65 mg/dL (2-149) 02/09/19 09:16 Cholesterol 47 mg/dL (50-199) L 02/09/19 09:16 LDL Cholesterol Direct 13 mg/dL (50-130) L 02/09/19 09:16 HDL Cholesterol 27 mg/dL (40-59) L 02/09/19 09:16 Cholesterol/HDL Ratio 1.74 % 02/09/19 09:16 TSH 5.570 mlU/mL (0.270-4.200) H 02/09/19 09:16 Free T4 0.85 ng/dL (0.76-1.46) 02/09/19 09:16 Urine Color [place]ika (Yellow) 02/09/19 14:30 Urine Turbidity Cloudy (Clear) 02/09/19 14:30 Urine pH 5.0 (5.0-7.0) 02/09/19 14:30 Ur Specific [place] 1.015 (1.003-1.030) 02/09/19 14:30 Urine Protein 30 mg/dl mg/dL (Negative) 02/09/19 14:30 Urine Glucose (UA) Neg mg/dL (Negative) 02/09/19 14:30 Urine Ketones Neg mg/dL (Negative) 02/09/19 14:30 Urine Blood Sm (Negative) 02/09/19 14:30 Urine Nitrite Neg (Negative) 02/09/19 14:30 Urine Bilirubin Neg (Negative) 02/09/19 14:30 Urine Urobilinogen < 2.0 mg/dL (<2.0) 02/09/19 14:30 Ur Leukocyte Esterase Mod (Negative) 02/09/19 14:30 Urine WBC (Auto) 32.0 /HPF (0.0-6.0) H 02/09/19 14:30 Urine RBC (Auto) 29.0 /HPF (0.0-6.0) 02/09/19 14:30 U Epithel Cells (Auto) 3.0 /HPF (0-13.0) 02/09/19 14:30 Urine Bacteria (Auto) 3+ /HPF (Negative) 02/09/19 14:30 Urine WBC Clumps 2+ /HPF 02/09/19 14:30 Urine Mucus Few /HPF 02/09/19 14:30 Urine Creatinine 162.4 mg/dL (0.1-20.0) H 02/09/19 14:30 Protein/Creatinin Ratio 0.30 02/09/19 14:30 Urine Sodium 38 mmol/L 02/09/19 14:30 Urine Total Protein 49 mg/dL (5-11.8) H 02/09/19 14:30 Urine Opiates Screen Presumptive negative 02/09/19 14:30 Urine Methadone Screen Presumptive negative 02/09/19 14:30 Ur Barbiturates Screen Presumptive negative 02/09/19 14:30 Ur Phencyclidine Scrn Presumptive negative 02/09/19 14:30 Ur Amphetamines Screen Presumptive negative 02/09/19 14:30 U Benzodiazepines Scrn Presumptive negative 02/09/19 14:30 Urine Cocaine Screen Presumptive negative 02/09/19 14:30 U Marijuana (THC) Screen Presumptive negative 02/09/19 14:30 Drugs of Abuse Note Disclamer 02/09/19 14:30 Plasma/Serum Alcohol < 0.01 % (0-0.07) 02/09/19 09:16 Hepatitis A IgM Ab Non-reactive (NonReactive) 02/09/19 12:47 Hep Bs Antigen Non-reactive (Negative) 02/09/19 12:47 Hep B Core IgM Ab Non-reactive (NonReactive) 02/09/19 12:47 Hepatitis C Antibody Non-reactive (NonReactive) 02/09/19 12:47 Active Medications - Current Medications Current Medications: Generic Name Dose Route Start Last Admin Trade Name Freq PRN Reason Stop Dose Admin Acetaminophen 650 mg 02/09/19 22:59 Tylenol PO Q4H PRN Pain MILD(1-3)/Fever >100.5/ARREDONDO Albumin Human 25 gm 02/10/19 12:20 Alburx 25% (Albumin) IV TREVA PRN Hypotension Albuterol 1.25 mg 02/10/19 01:36 Proventil IH TIDRT PRN Shortness Of Breath Albuterol/Ipratropium 1 ampul 02/10/19 14:00 Duoneb *Not For Prn Use* IH Q6HRT YISEL Fluticasone Propionate 50 mcg 02/09/19 22:56 Flonase NS QID PRN allergies Gabapentin 800 mg 02/09/19 23:00 02/10/19 06:13 Gabapentin PO 800 mg Q8HR YISEL Administration Heparin Sodium (Porcine) 5,000 unit 02/10/19 22:00 Heparin SUB-Q Q12HR YISEL Hydromorphone HCl 0.25 mg 02/09/19 22:59 Dilaudid IV Q3H PRN Pain, Moderate (4-6) Dextrose 1,000 mls @ 75 mls/hr 02/10/19 08:00 02/10/19 08:30 D10w IV 75 mls/hr DIRECT YISEL Administration Sodium Chloride 100 mls @ 999 mls/hr 02/10/19 12:05 Nacl 0.9% IV TREVA PRN Hypotension Insulin Human Lispro 0 unit 02/10/19 07:30 02/10/19 10:28 Humalog SUB-Q Not Given ACHS [facility] Protocol Ondansetron HCl 4 mg 02/09/19 22:59 Zofran IV Q8H PRN Nausea And Vomiting Oxycodone/Acetaminophen 1 tab 02/09/19 22:59 Percocet 5/325 PO Q6H PRN Pain, Moderate (4-6) Sodium Chloride 10 ml 02/10/19 10:00 02/10/19 10:30 Sodium Chloride Flush Syringe 10 Ml IV 10 ml BID YISEL Administration Sodium Chloride 10 ml 02/09/19 22:59 02/10/19 06:44 Sodium Chloride Flush Syringe 10 Ml IV 10 ml PRN PRN Administration LINE FLUSH
[2019-02-10] MEDS ORDERED: VANCOMYCIN PHARMACY TO DOSE IV SCH (16:00)
[2019-02-10] MEDS ORDERED: CEFEPIME/NS 1 GM/100 ML 1 GM/100 ML BAG IV SCH (16:00)
[2019-02-10] MEDS: IPRATROPIUM/ALBUTEROL SULFATE 3 ML AMPUL.NEB IH SCH ×2 (16:59→21:00)
[2019-02-10] MEDS ORDERED: VANCOMYCIN 2,000 MG in SODIUM CHLORIDE 0.9% 500 ML 500 ML IV ONE (17:00)
--- NOTE | 2019-02-10 20:19 | XRay Report ---
CHEST 1 VIEW INDICATION / CLINICAL INFORMATION: sirs. COMPARISON: 06/21/2016 FINDINGS: SUPPORT DEVICES: None. HEART / MEDIASTINUM: Slightly enlarged but stable. LUNGS / PLEURA: Low lung volumes are seen but the lungs and pleural spaces remain clear with no infil trate, edema or effusion. Prominence of the right paratracheal area appears to be vascular. No pneumo thorax. ADDITIONAL FINDINGS: No significant additional findings. IMPRESSION: 1. No significant change Signer Name: Saturnino Villegas MD Signed: 02/10/2019 8:15 PM Workstation Name: [id number]
[2019-02-10] MEDS: CEFEPIME/NS 1 GM/100 ML 1 GM/100 ML BAG IV SCH (21:50)
[2019-02-10] MEDS: HEPARIN 5,000 UNIT/1 ML VIAL SUB-Q SCH (21:51)
[2019-02-10] MEDS ORDERED: SODIUM CHLORIDE*PRIMING MACHINE ONLY FOR DIALYSIS MC ONE (23:46)
[2019-02-11] MEDS: GABAPENTIN 400 MG CAP PO SCH ×3 (06:00→22:51)
[2019-02-11] MEDS ORDERED: SODIUM CHLORIDE 0.9% 250ML 250 ML IV ONE (06:01)
[2019-02-11 06:14] LABS: Calcium 8.1 mg/dL (8.4-10.2)
[2019-02-11] MEDS: IPRATROPIUM/ALBUTEROL SULFATE 3 ML AMPUL.NEB IH SCH ×4 (07:19→21:16)
--- NOTE | 2019-02-11 07:54 | Progress Note ---
Assessment and Plan Assessment and plan: 68F brought in by family for AMS, less responsive CTH neg Renal US neg JESÚS, w severe uremia, Hyperkalemia, Hyponatremia na improved, K now normal -Sp Vas cath sp urgent HD on 02/10 -sp calcium, albuterol, and insulin and D50w renal u/s neg hold padmini DM with hypoglycemia received Sulfonylureas 02/09, d10 drip hold Dm meds SIRS, w hypotension and organ dysfunction empiric abx, UA shows few WBC, highly doubt UTI, also doubt infection, will cover empirically with antibiotics given how sick the patient is. fup urine cx, obtain cxr, fup blood cx sp IVF bolus on 02/10. Blood pressure has now been on the lower end of normal. hold Bp meds Acute metabolic encephalopathy Most likely due to uremia, should improve with dialysis, BUN still elevated to the at 80 acute hypoxic resp failure Likely due to acute metabolic encephalopathy cont rescue bipap, will try to wean her off it today. Pulmonology consulted JUAN JOSE lynch, no hx of obstruction, Renal US neg, place purewick for urine collection DVT ppx- heparin sq History Interval history: Patient remains confused, minimally responsive, but non verbal Remains BiPAP dependent BP has been low but stable no more episodes of hypoglycemia, but on d10 drip No cough Hospitalist Physical - Physical exam Narrative exam: General.: Moderate to severe respiratory distress, obese HEENT: Moist mucous membranes, extraocular muscles intact, no lymphadenopathy Neck: supple Cardiac: S1-S2 heard Lungs: clear to auscultation bilaterally Abdomen: soft , nontender, nondistended, bowel sounds positive Extremities: no edema clubbing or cyanosis Skin: no rash or lesions Neurologic: Patient is minimally responsive, non verbal, moves extremities, does not obey commands Psych: Patient is minimally responsive, BiPAP dependent - Constitutional Vitals: Temp Pulse Resp BP Pulse Ox 100.9 F H 69 16 99/54 100 02/11/19 07:53 02/11/19 07:24 02/11/19 07:24 02/11/19 07:24 02/11/19 07:24 General appearance: Present: no acute distress, well-nourished Results - Labs CBC & Chem 7: 02/10/19 09:28 02/11/19 04:48 Labs: Laboratory Last Values WBC 14.7 K/mm3 (4.5-11.0) H 02/10/19 09:28 RBC 2.60 M/mm3 (3.65-5.03) L 02/10/19 09:28 Hgb 8.5 gm/dl (10.1-14.3) L 02/10/19 09:28 Hct 26.9 % (30.3-42.9) L 02/10/19 09:28 MCV 104 fl (79-97) H 02/10/19 09:28 MCH 33 pg (28-32) H 02/10/19 09:28 MCHC 32 % (30-34) 02/10/19 09:28 RDW 16.6 % (13.2-15.2) H 02/10/19 09:28 Plt Count 140 K/mm3 (140-440) 02/10/19 09:28 Lymph % (Auto) Software Client Architect 02/10/19 09:28 [place] % (Auto) Software Client Architect 02/10/19 09:28 Eos % (Auto) Software Client Architect 02/10/19 09:28 Baso % (Auto) Software Client Architect 02/10/19 09:28 Lymph # Software Client Architect 02/10/19 09:28 [place] # Software Client Architect 02/10/19 09:28 Eos # Software Client Architect 02/10/19 09:28 Baso # Software Client Architect 02/10/19 09:28 Add Manual Diff Complete 02/10/19 09:28 Total Counted 100 02/10/19 09:28 Seg Neutrophils % Software Client Architect 02/10/19 09:28 Seg Neuts % (Manual) 96.0 % (40.0-70.0) H 02/10/19 09:28 Band Neutrophils % 0 % 02/10/19 09:28 Lymphocytes % (Manual) 1.0 % (13.4-35.0) L 02/10/19 09:28 Reactive Lymphs % (Man) 0 % 02/10/19 09:28 Monocytes % (Manual) 2.0 % (0.0-7.3) 02/10/19 09:28 Eosinophils % (Manual) 0 % (0.0-4.3) 02/10/19 09:28 Basophils % (Manual) 0 % (0.0-1.8) 02/10/19 09:28 Metamyelocytes % 1.0 % 02/10/19 09:28 Myelocytes % 0 % 02/10/19 09:28 Promyelocytes % 0 % 02/10/19 09:28 Blast Cells % 0 % 02/10/19 09:28 Nucleated RBC % 3.0 % (0.0-0.9) H 02/10/19 09:28 Seg Neutrophils # Software Client Architect 02/10/19 09:28 Seg Neutrophils # Man 14.1 K/mm3 (1.8-7.7) H 02/10/19 09:28 Band Neutrophils # 0.0 K/mm3 02/10/19 09:28 Lymphocytes # (Manual) 0.1 K/mm3 (1.2-5.4) L 02/10/19 09:28 Abs React Lymphs (Man) 0.0 K/mm3 02/10/19 09:28 Monocytes # (Manual) 0.3 K/mm3 (0.0-0.8) 02/10/19 09:28 Eosinophils # (Manual) 0.0 K/mm3 (0.0-0.4) 02/10/19 09:28 Basophils # (Manual) 0.0 K/mm3 (0.0-0.1) 02/10/19 09:28 Metamyelocytes # 0.1 K/mm3 02/10/19 09:28 Myelocytes # 0.0 K/mm3 02/10/19 09:28 Promyelocytes # 0.0 K/mm3 02/10/19 09:28 Blast Cells # 0.0 K/mm3 02/10/19 09:28 WBC Morphology Not Reportable 02/10/19 09:28 Hypersegmented Neuts Not Reportable 02/10/19 09:28 Hyposegmented Neuts Not Reportable 02/10/19 09:28 Hypogranular Neuts Not Reportable 02/10/19 09:28 Smudge Cells Not Reportable 02/10/19 09:28 Toxic Granulation Not Reportable 02/10/19 09:28 Toxic Vacuolation Not Reportable 02/10/19 09:28 Dohle Bodies Not Reportable 02/10/19 09:28 Pelger-Huet Anomaly Not Reportable 02/10/19 09:28 [place] Rods Not Reportable 02/10/19 09:28 Platelet Estimate Consistent w auto 02/10/19 09:28 Clumped Platelets Not Reportable 02/10/19 09:28 Plt Clumps, EDTA Not Reportable 02/10/19 09:28 Large Platelets Not Reportable 02/10/19 09:28 Giant Platelets Not Reportable 02/10/19 09:28 Platelet Satelliting Not Reportable 02/10/19 09:28 Plt Morphology Comment Not Reportable 02/10/19 09:28 RBC Morphology Not Reportable 02/10/19 09:28 Dimorphic RBCs Not Reportable 02/10/19 09:28 Polychromasia Few 02/10/19 09:28 Hypochromasia Not Reportable 02/10/19 09:28 Poikilocytosis Not Reportable 02/10/19 09:28 Anisocytosis Not Reportable 02/10/19 09:28 Microcytosis Not Reportable 02/10/19 09:28 Macrocytosis Not Reportable 02/10/19 09:28 Spherocytes Not Reportable 02/10/19 09:28 Pappenheimer Bodies Not Reportable 02/10/19 09:28 Sickle Cells Not Reportable 02/10/19 09:28 Target Cells Few 02/10/19 09:28 Tear Drop Cells Not Reportable 02/10/19 09:28 Ovalocytes Not Reportable 02/10/19 09:28 Helmet Cells Not Reportable 02/10/19 09:28 [place] Bodies Not Reportable 02/10/19 09:28 [place] Rings Not Reportable 02/10/19 09:28 [place] Cells Not Reportable 02/10/19 09:28 Bite Cells Not Reportable 02/10/19 09:28 Crenated Cell Not Reportable 02/10/19 09:28 Elliptocytes Not Reportable 02/10/19 09:28 Acanthocytes (Spur) Not Reportable 02/10/19 09:28 Rouleaux Not Reportable 02/10/19 09:28 Hemoglobin C Crystals Not Reportable 02/10/19 09:28 Schistocytes Not Reportable 02/10/19 09:28 Malaria parasites Not Reportable 02/10/19 09:28 Emanuel Bodies Not Reportable 02/10/19 09:28 Hem Pathologist Commnt No 02/10/19 09:28 PT 17.8 Sec. (12.2-14.9) H 02/09/19 09:16 INR 1.49 (0.87-1.13) H 02/09/19 09:16 APTT 36.0 Sec. (24.2-36.6) 02/09/19 09:16 Sodium 130 mmol/L (137-145) L 02/11/19 04:48 Potassium 4.8 mmol/L (3.6-5.0) 02/11/19 04:48 Chloride 91.2 mmol/L (98-107) L 02/11/19 04:48 Carbon Dioxide 20 mmol/L (22-30) L 02/11/19 04:48 Anion Gap 24 mmol/L 02/11/19 04:48 BUN 81 mg/dL (7-17) H 02/11/19 04:48 Creatinine 5.7 mg/dL (0.7-1.2) H 02/11/19 04:48 Estimated GFR 9 ml/min 02/11/19 04:48 BUN/Creatinine Ratio 14 % 02/11/19 04:48 Glucose 80 mg/dL (65-100) 02/11/19 04:48 POC Glucose 97 (70-105) 02/11/19 05:23 Hemoglobin A1c 8.5 % (4-6) H 02/09/19 23:24 Calcium 8.1 mg/dL (8.4-10.2) L 02/11/19 04:48 Phosphorus 4.10 mg/dL (2.5-4.5) 02/09/19 12:47 Total Bilirubin 3.10 mg/dL (0.1-1.2) H 02/10/19 06:39 AST 39 units/L (5-40) 02/10/19 06:39 ALT 12 units/L (7-56) 02/10/19 06:39 Alkaline Phosphatase 112 units/L (35-129) 02/10/19 06:39 Ammonia 61.0 umol/L (25-60) H 02/09/19 09:16 Total Creatine Kinase 264 units/L (30-135) H 02/09/19 09:16 CK-MB (CK-2) 2.1 ng/mL (0.0-4.0) 02/09/19 09:16 CK-MB (CK-2) Rel Index 0.7 (0-4) 02/09/19 09:16 Troponin T 0.073 ng/mL (0.00-0.029) H 02/09/19 09:16 Total Protein 8.3 g/dL (6.3-8.2) H 02/10/19 06:39 Albumin 2.4 g/dL (3.9-5) L 02/10/19 06:39 Albumin/Globulin Ratio 0.4 % 02/10/19 06:39 Triglycerides 65 mg/dL (2-149) 02/09/19 09:16 Cholesterol 47 mg/dL (50-199) L 02/09/19 09:16 LDL Cholesterol Direct 13 mg/dL (50-130) L 02/09/19 09:16 HDL Cholesterol 27 mg/dL (40-59) L 02/09/19 09:16 Cholesterol/HDL Ratio 1.74 % 02/09/19 09:16 TSH 5.570 mlU/mL (0.270-4.200) H 02/09/19 09:16 Free T4 0.85 ng/dL (0.76-1.46) 02/09/19 09:16 Urine Color [place] (Yellow) 02/09/19 14:30 Urine Turbidity Cloudy (Clear) 02/09/19 14:30 Urine pH 5.0 (5.0-7.0) 02/09/19 14:30 Ur Specific [place] 1.015 (1.003-1.030) 02/09/19 14:30 Urine Protein 30 mg/dl mg/dL (Negative) 02/09/19 14:30 Urine Glucose (UA) Neg mg/dL (Negative) 02/09/19 14:30 Urine Ketones Neg mg/dL (Negative) 02/09/19 14:30 Urine Blood Sm (Negative) 02/09/19 14:30 Urine Nitrite Neg (Negative) 02/09/19 14:30 Urine Bilirubin Neg (Negative) 02/09/19 14:30 Urine Urobilinogen < 2.0 mg/dL (<2.0) 02/09/19 14:30 Ur Leukocyte Esterase Mod (Negative) 02/09/19 14:30 Urine WBC (Auto) 32.0 /HPF (0.0-6.0) H 02/09/19 14:30 Urine RBC (Auto) 29.0 /HPF (0.0-6.0) 02/09/19 14:30 U Epithel Cells (Auto) 3.0 /HPF (0-13.0) 02/09/19 14:30 Urine Bacteria (Auto) 3+ /HPF (Negative) 02/09/19 14:30 Urine WBC Clumps 2+ /HPF 02/09/19 14:30 Urine Mucus Few /HPF 02/09/19 14:30 Urine Creatinine 162.4 mg/dL (0.1-20.0) H 02/09/19 14:30 Protein/Creatinin Ratio 0.30 02/09/19 14:30 Urine Sodium 38 mmol/L 02/09/19 14:30 Urine Total Protein 49 mg/dL (5-11.8) H 02/09/19 14:30 Urine Opiates Screen Presumptive negative 02/09/19 14:30 Urine Methadone Screen Presumptive negative 02/09/19 14:30 Ur Barbiturates Screen Presumptive negative 02/09/19 14:30 Ur Phencyclidine Scrn Presumptive negative 02/09/19 14:30 Ur Amphetamines Screen Presumptive negative 02/09/19 14:30 U Benzodiazepines Scrn Presumptive negative 02/09/19 14:30 Urine Cocaine Screen Presumptive negative 02/09/19 14:30 U Marijuana (THC) Screen Presumptive negative 02/09/19 14:30 Drugs of Abuse Note Disclamer 02/09/19 14:30 Plasma/Serum Alcohol < 0.01 % (0-0.07) 02/09/19 09:16 Hepatitis A IgM Ab Non-reactive (NonReactive) 02/09/19 12:47 Hep Bs Antigen Non-reactive (Negative) 02/09/19 12:47 Hep B Core IgM Ab Non-reactive (NonReactive) 02/09/19 12:47 Hepatitis C Antibody Non-reactive (NonReactive) 02/09/19 12:47 Active Medications - Current Medications Current Medications: Generic Name Dose Route Start Last Admin Trade Name Freq PRN Reason Stop Dose Admin Acetaminophen 650 mg 02/09/19 22:59 Tylenol PO Q4H PRN Pain MILD(1-3)/Fever >100.5/ARREDONDO Albuterol 1.25 mg 02/10/19 01:36 Proventil IH TIDRT PRN Shortness Of Breath Albuterol/Ipratropium 1 ampul 02/10/19 14:00 02/11/19 07:19 Duoneb *Not For Prn Use* IH 1 ampul Q6HRT YISEL Administration Fluticasone Propionate 50 mcg 02/09/19 22:56 Flonase NS QID PRN allergies Gabapentin 800 mg 02/09/19 23:00 02/11/19 06:00 Gabapentin PO Not Given Q8HR YISEL Heparin Sodium (Porcine) 5,000 unit 02/10/19 22:00 02/10/19 21:51 Heparin SUB-Q 5,000 unit Q12HR YISEL Administration Hydromorphone HCl 0.25 mg 02/09/19 22:59 Dilaudid IV Q3H PRN Pain, Moderate (4-6) Dextrose 1,000 mls @ 75 mls/hr 02/10/19 08:00 02/10/19 23:13 D10w IV 75 mls/hr DIRECT YISEL Administration Sodium Chloride 100 mls @ 999 mls/hr 02/10/19 12:05 Nacl 0.9% IV TREVA PRN Hypotension Cefepime HCl 1 gm in 100 mls @ 200 mls/hr 02/10/19 16:00 02/10/19 21:50 Cefepime/Ns 1 Gm/100 Ml IV 200 mls/hr Q24H YISEL Administration Insulin Human Lispro 0 unit 02/10/19 07:30 02/10/19 21:51 Humalog SUB-Q Not Given ACHS REPLACED BY [facility] Protocol Ondansetron HCl 4 mg 02/09/19 22:59 Zofran IV Q8H PRN Nausea And Vomiting Oxycodone/Acetaminophen 1 tab 02/09/19 22:59 Percocet 5/325 PO Q6H PRN Pain, Moderate (4-6) Sodium Chloride 10 ml 02/10/19 10:00 02/10/19 21:52 Sodium Chloride Flush Syringe 10 Ml IV 10 ml BID YISEL Administration Sodium Chloride 10 ml 02/09/19 22:59 02/10/19 06:44 Sodium Chloride Flush Syringe 10 Ml IV 10 ml PRN PRN Administration LINE FLUSH
[2019-02-11] MEDS: INSULIN LISPRO 100 UNIT/ML SUB-Q SCH ×2 (08:05→11:35)
--- NOTE | 2019-02-11 09:42 | XRay Report ---
CHEST 1 VIEW 02/11/2019 9:24 AM INDICATION / CLINICAL INFORMATION: sob. COMPARISON: 02/10/2019 FINDINGS: SUPPORT DEVICES: None. HEART / MEDIASTINUM: Stable mild cardiomegaly. LUNGS / PLEURA: Stable low lung volumes without focal consolidation or significant effusion. No pneum othorax. ADDITIONAL FINDINGS: No significant additional findings. IMPRESSION: 1. No adverse change from the prior exam. Signer Name: Laith Land MD Signed: 02/11/2019 9:38 AM Workstation Name: [id number]
[2019-02-11] MEDS: HEPARIN 5,000 UNIT/1 ML VIAL SUB-Q SCH ×2 (09:49→22:51)
[2019-02-11] MEDS: DEXTROSE 10% IN WATER 1,000 ML IV SCH (11:21)
--- NOTE | 2019-02-11 12:01 | Progress Note ---
Assessment and Plan ssessment and Plan Impression * Patient most likely has acute on chronic renal failure. Her serum creatinine was 1.6 back in 2017. * Respiratory failure * Morbid obesity * Hyperkalemia * Metabolic acidosis * Hypoglycemia * Anemia Recommendations * Patient remains oliguric and clinically volume overloaded. 250 mL of urine output recorded yesterday * Status post Vas-Cath placement on 02/10/2019 and initiation of dialysis * Her hyperkalemia has been corrected. She is however clinically volume overloaded. Shall dialyze again today * Fractional excretion of sodium was approximately 1.2%. Urine shows 1+ dipstick protein and small blood. * She may have developed ATN on top for chronic kidney disease. * Renal ultrasound is normal. No obstruction. * Follow up results of vasculitis workup * Monitor fluid status and electrolytes closely * Avoid nephrotoxins * Discussed with patient's nurse as well as logistics manager * Reduce rate of D10 drip Subjective Date of service: 02/11/19 Interval history: Status post insertion of right femoral vasCath yesterday. Had hemodialysis yesterday as well. Currently in IMCU. Patient is on a BiPAP mask with 28% FiO2. Remains on a D10 drip as well Objective - Vital Signs Vital signs: Vital Signs - 12hr 02/11/19 02/11/19 02/11/19 00:00 00:11 00:21 Temperature 99.9 F H Pulse Rate 84 67 Pulse Rate [ Anterior Bilateral Throughout] Pulse Rate [ From Monitor] Respiratory 18 22 13 Rate Respiratory Rate [Anterior Bilateral Throughout] Blood Pressure 99/59 99/59 90/48 O2 Sat by Pulse 100 100 100 Oximetry 02/11/19 02/11/19 02/11/19 00:30 00:32 00:41 Temperature Pulse Rate 68 79 67 Pulse Rate [ Anterior Bilateral Throughout] Pulse Rate [ From Monitor] Respiratory 12 14 14 Rate Respiratory Rate [Anterior Bilateral Throughout] Blood Pressure 105/60 99/59 105/60 O2 Sat by Pulse 100 100 98 Oximetry 02/11/19 02/11/19 02/11/19 00:51 01:00 01:11 Temperature Pulse Rate 67 67 66 Pulse Rate [ Anterior Bilateral Throughout] Pulse Rate [ From Monitor] Respiratory 13 17 13 Rate Respiratory Rate [Anterior Bilateral Throughout] Blood Pressure 99/55 104/58 104/58 O2 Sat by Pulse 100 100 100 Oximetry 02/11/19 02/11/1902/11/19 01:21 01:30 01:41 Temperature Pulse Rate 65 68 67 Pulse Rate [ Anterior Bilateral Throughout] Pulse Rate [ From Monitor] Respiratory 14 12 12 Rate Respiratory Rate [Anterior Bilateral Throughout] Blood Pressure 94/49 94/49 O2 Sat by Pulse 100 100 99 Oximetry 02/11/19 02/11/19 02/11/19 01:51 02:00 02:11 Temperature Pulse Rate 67 65 65 Pulse Rate [ Anterior Bilateral Throughout] Pulse Rate [ From Monitor] Respiratory 14 12 14 Rate Respiratory Rate [Anterior Bilateral Throughout] Blood Pressure 101/56 93/50 93/50 O2 Sat by Pulse 100 100 100 Oximetry 02/11/19 02/11/19 02/11/19 02:12 02:21 02:30 Temperature Pulse Rate 66 66 Pulse Rate [ 67 Anterior Bilateral Throughout] Pulse Rate [ From Monitor] Respiratory 13 14 Rate Respiratory 15 Rate [Anterior Bilateral Throughout] Blood Pressure 110/62 102/58 O2 Sat by Pulse 100 100 Oximetry 02/11/19 02/11/19 02/11/19 02:41 02:51 03:00 Temperature Pulse Rate 66 66 67 Pulse Rate [ Anterior Bilateral Throughout] Pulse Rate [ From Monitor] Respiratory 15 15 13 Rate Respiratory Rate [Anterior Bilateral Throughout] Blood Pressure 102/58 100/56 107/57 O2 Sat by Pulse 100 100 100 Oximetry 02/11/19 02/11/19 02/11/19 03:11 03:21 03:30 Temperature Pulse Rate 67 66 67 Pulse Rate [ Anterior Bilateral Throughout] Pulse Rate [ From Monitor] Respiratory 15 13 14 Rate Respiratory Rate [Anterior Bilateral Throughout] Blood Pressure 107/57 105/53 107/61 O2 Sat by Pulse 100 100 100 Oximetry 02/11/19 02/11/19 02/11/19 03:41 03:51 04:00 Temperature 100.9 F H Pulse Rate 66 67 67 Pulse Rate [ Anterior Bilateral Throughout] Pulse Rate [ From Monitor] Respiratory 19 16 15 Rate Respiratory Rate [Anterior Bilateral Throughout] Blood Pressure 107/61 103/52 110/49 O2 Sat by Pulse 100 100 100 Oximetry 02/11/19 02/11/19 02/11/19 04:11 04:21 04:23 Temperature Pulse Rate 67 68 67 Pulse Rate [ Anterior Bilateral Throughout] Pulse Rate [ From Monitor] Respiratory 12 13 21 Rate Respiratory Rate [Anterior Bilateral Throughout] Blood Pressure 110/49 106/55 110/49 O2 Sat by Pulse 100 100 100 Oximetry 02/11/19 02/11/19 02/11/19 04:31 04:41 04:51 Temperature Pulse Rate 68 66 68 Pulse Rate [ Anterior Bilateral Throughout] Pulse Rate [ From Monitor] Respiratory 13 14 14 Rate Respiratory Rate [Anterior Bilateral Throughout] Blood Pressure 86/40 99/52 97/51 O2 Sat by Pulse 100 100 100 Oximetry 02/11/19 02/11/19 02/11/19 05:00 05:11 05:21 Temperature Pulse Rate 67 70 67 Pulse Rate [ Anterior Bilateral Throughout] Pulse Rate [ From Monitor] Respiratory 14 13 12 Rate Respiratory Rate [Anterior Bilateral Throughout] Blood Pressure 86/50 86/50 106/49 O2 Sat by Pulse 100 100 100 Oximetry 02/11/19 02/11/19 02/11/19 05:30 05:41 05:51 Temperature Pulse Rate 70 67 69 Pulse Rate [ Anterior Bilateral Throughout] Pulse Rate [ From Monitor] Respiratory 17 16 12 Rate Respiratory Rate [Anterior Bilateral Throughout] Blood Pressure 96/50 96/50 80/50 O2 Sat by Pulse 100 100 100 Oximetry 02/11/19 02/11/19 02/11/19 06:00 06:11 07:00 Temperature Pulse Rate 68 68 67 Pulse Rate [ Anterior Bilateral Throughout] Pulse Rate [ 69 From Monitor] Respiratory 15 16 15 Rate Respiratory Rate [Anterior Bilateral Throughout] Blood Pressure 96/57 96/57 112/58 O2 Sat by Pulse 100 100 100 Oximetry 02/11/19 02/11/19 02/11/19 07:23 07:24 07:53 Temperature 100.9 F H Pulse Rate 69 Pulse Rate [ 67 Anterior Bilateral Throughout] Pulse Rate [ From Monitor] Respiratory 16 Rate Respiratory 16 Rate [Anterior Bilateral Throughout] Blood Pressure 99/54 O2 Sat by Pulse 100 Oximetry 02/11/19 02/11/19 02/11/19 08:00 09:00 10:31 Temperature Pulse Rate 76 68 68 Pulse Rate [ Anterior Bilateral Throughout] Pulse Rate [ From Monitor] Respiratory 16 16 20 Rate Respiratory Rate [Anterior Bilateral Throughout] Blood Pressure 90/46 89/50 92/47 O2 Sat by Pulse 100 98 99 Oximetry - General Appearance General appearance: well-developed, well-nourished, obese, other (on BiPAP mask) EENT: PERRL, mucous membranes moist Neck: no JVD, no thyromegaly Respiratory: Present: Ronchi (bilateral scattered rhonchi) Gastrointestinal: normal, normoactive bowel sounds, other (obese) Integumentary: other (2+ edema. Right femoral Vas-Cath in place) - Lab 02/10/19 09:28 02/11/19 04:48 Most recent lab results Calcium 8.1 mg/dL (8.4-10.2) L 02/11/19 04:48 Phosphorus 4.10 mg/dL (2.5-4.5) 02/09/19 12:47 Urine Creatinine 162.4 mg/dL (0.1-20.0) H 02/09/19 14:30 Urine Sodium 38 mmol/L 02/09/19 14:30 Urine Total Protein 49 mg/dL (5-11.8) H 02/09/19 14:30 Medications & Allergies - Medications Allergies/Adverse Reactions: Allergies No Known Allergies Allergy (Verified 06/21/16 01:02) Home Medications: Home Medications Medication Instructions Recorded Confirmed Last Taken Type Fluticasone [Flonase] 50 mcg IH Q4-6H PRN 06/21/16 02/10/19 Unknown History Gabapentin [Neurontin] 800 mg PO Q8H 06/21/16 02/10/19 06/19/16 History Glimepiride [Amaryl] 2 mg PO QAM 06/21/16 02/10/19 06/20/16 History Insulin Glargine,Hum.rec.anlog 100 units SUB-Q QHS 06/21/16 02/10/19 06/19/16 History [Lantus Solostar] Lisinopril [Zestril TAB] 40 mg PO QDAY 06/21/16 02/10/19 06/20/16 History Metformin HCl [Metformin HCl ER] 500 mg PO BID 06/21/16 02/10/19 06/20/16 History amLODIPine [Norvasc] 5 mg PO DAILY 06/21/16 02/10/19 06/20/16 History Albuterol Sulfate [Albuterol 0.63% 0.63 mg IH TID PRN #1 box 06/22/16 02/10/19 Unknown Rx NEBS] Azithromycin [Zithromax TAB] 250 mg PO QDAY #6 tablet 06/22/16 02/10/19 Unknown Rx Benzonatate [Tessalon Perles] 100 mg PO Q8HR #30 capsule 06/22/16 02/10/19 Unknown Rx Ipratropium [Atrovent NEB] 0.5 mg IH Q8HRT #1 box 06/22/16 02/10/19 Unknown Rx Nebulizer and Compressor 1 each MC DAILY PRN #1 each 06/22/16 02/10/19 Unknown Rx [Devilbiss Pulmoneb Lt Comp-Neb] Prednisone [predniSONE 10 mg 10 mg PO .TAPER #1 tab.ds.pk 06/22/16 02/10/19 Unknown Rx (6-Day Pack, 21 Tabs)] Active Medications: Generic Name Dose Route Start Last Admin Trade Name Freq PRN Reason Stop Dose Admin Acetaminophen 650 mg 02/09/19 22:59 Tylenol PO Q4H PRN Pain MILD(1-3)/Fever >100.5/ARREDONDO Albuterol 1.25 mg 02/10/19 01:36 Proventil IH TIDRT PRN Shortness Of Breath Albuterol/Ipratropium 1 ampul 02/10/19 14:00 02/11/19 09:45 Duoneb *Not For Prn Use* IH Not Given Q6HRT YISEL Fluticasone Propionate 50 mcg 02/09/19 22:56 Flonase NS QID PRN allergies Gabapentin 800 mg 02/09/19 23:00 02/11/19 06:00 Gabapentin PO Not Given Q8HR YISEL Heparin Sodium (Porcine) 5,000 unit 02/10/19 22:00 02/11/19 09:49 Heparin SUB-Q 5,000 unit Q12HR YISEL Administration Hydromorphone HCl 0.25 mg 02/09/19 22:59 Dilaudid IV Q3H PRN Pain, Moderate (4-6) Dextrose 1,000 mls @ 75 mls/hr 02/10/19 08:00 02/11/19 11:21 D10w IV 75 mls/hr DIRECT YISEL Administration Sodium Chloride 100 mls @ 999 mls/hr 02/10/19 12:05 Nacl 0.9% IV TREVA PRN Hypotension Cefepime HCl 1 gm in 100 mls @ 200 mls/hr 02/10/19 16:00 02/10/19 21:50 Cefepime/Ns 1 Gm/100 Ml IV 200 mls/hr Q24H YISEL Administration Insulin Human Lispro 0 unit 02/10/19 07:30 02/11/19 08:05 Humalog SUB-Q Not Given ACHS [facility] Protocol Ondansetron HCl 4 mg 02/09/19 22:59 Zofran IV Q8H PRN Nausea And Vomiting Oxycodone/Acetaminophen 1 tab 02/09/19 22:59 Percocet 5/325 PO Q6H PRN Pain, Moderate (4-6) Sodium Chloride 10 ml 02/10/19 10:00 02/11/19 09:49 Sodium Chloride Flush Syringe 10 Ml IV 10 ml BID YISEL Administration Sodium Chloride 10 ml 02/09/19 22:59 02/10/19 06:44 Sodium Chloride Flush Syringe 10 Ml IV 10 ml PRN PRN Administration LINE FLUSH
[2019-02-11] MEDS ORDERED: SODIUM CHLORIDE 0.9% 100 ML IV PRN (12:02)
[2019-02-11] MEDS ORDERED: ALBUMIN HUMAN 25% (25 GM/100 ML) INJ IV PRN (12:02)
--- NOTE | 2019-02-11 13:15 | Consultation ---
History of Present Illness Consult date: 02/11/19 Requesting physician: JUNE SOSA History of present illness: DOCUMENTED HISTORY The patient is a 68-year-old female with history of CHF, COPD who presents with one week of altered mental status. Family is present at bedside; family states that patient has been "out of it" and has complained of weakness over the past week. In the ED, she was noted to be hypotensive and hypoglycemic; she was found to have a creatinine of 6.8 (last creatinine was 1.6 in 2017), K of 6.0, low HCO3. Patient has facemask on at time of consult and is unable to provide much further history. She does deny any dyspnea, swelling, dysuria currently. Noted to have nausea and vomiting prior to ED visit. Per family, she did start an antibiotic couple of days ago; no sick contacts or recent travel. No major medical changes noted per family recently. No clear symptoms such as epistaxis, rashes, joint pains. No known history of autoimmune disease. An ABG was obtained and she was noted to be hypercapnic and hypoxic, so was placed on BIPAP. I have been consulted for critical care management. Patient was seen and examined. Her family is at the bedside. She was dialyzed yesterday- has a right femoral HD catheter, currently hypotensive and encephalopathic- in septic shock Unable to give any history. I asked that vasopressor support be initiated and the patient be transferred to the ICU. Notified Dr. Sosa Past History Past Medical History: CAD, COPD, hypertension Past Surgical History: No surgical history Social history: no significant social history, lives with family Family history: hypertension Medications and Allergies Allergies Allergy/AdvReac Type Severity Reaction Status Date / Time No Known Allergies Allergy Verified 06/21/16 01:02 Home Medications Medication Instructions Recorded Confirmed Last Taken Type Fluticasone [Flonase] 50 mcg IH Q4-6H PRN 06/21/16 02/10/19 Unknown History Gabapentin [Neurontin] 800 mg PO Q8H 06/21/16 02/10/19 06/19/16 History Glimepiride [Amaryl] 2 mg PO QAM 06/21/16 02/10/19 06/20/16 History Insulin Glargine,Hum.rec.anlog 100 units SUB-Q QHS 06/21/16 02/10/19 06/19/16 History [Lantus Solostar] Lisinopril [Zestril TAB] 40 mg PO QDAY 06/21/16 02/10/19 06/20/16 History Metformin HCl [Metformin HCl ER] 500 mg PO BID 06/21/16 02/10/19 06/20/16 History amLODIPine [Norvasc] 5 mg PO DAILY 06/21/16 02/10/19 06/20/16 History Albuterol Sulfate [Albuterol 0.63% 0.63 mg IH TID PRN #1 box 06/22/16 02/10/19 Unknown Rx NEBS] Azithromycin [Zithromax TAB] 250 mg PO QDAY #6 tablet 06/22/16 02/10/19 Unknown Rx Benzonatate [Tessalon Perles] 100 mg PO Q8HR #30 capsule 06/22/16 02/10/19 Unknown Rx Ipratropium [Atrovent NEB] 0.5 mg IH Q8HRT #1 box 06/22/16 02/10/19 Unknown Rx Nebulizer and Compressor 1 each MC DAILY PRN #1 each 06/22/16 02/10/19 Unknown Rx [Devilbiss Pulmoneb Lt Comp-Neb] Prednisone [predniSONE 10 mg 10 mg PO .TAPER #1 tab.ds.pk 06/22/16 02/10/19 Unknown Rx (6-Day Pack, 21 Tabs)] Active Meds: Active Medications Acetaminophen (Tylenol) 650 mg PO Q4H PRN PRN Reason: Pain MILD(1-3)/Fever >100.5/ARREDONDO Albumin Human (Alburx 25% (Albumin)) 25 gm IV TREVA PRN PRN Reason: Hypotension Albuterol (Proventil) 1.25 mg IH TIDRT PRN PRN Reason: Shortness Of Breath Albuterol/Ipratropium (Duoneb *Not For Prn Use*) 1 ampul IH Q6HRT [facility] Last Admin: 02/11/19 09:45 Dose: Not Given Documented by: Fluticasone Propionate (Flonase) 50 mcg NS QID PRN PRN Reason: allergies Gabapentin (Gabapentin) 800 mg PO Q8HR [facility] Last Admin: 02/11/19 06:00 Dose: Not Given Documented by: Heparin Sodium (Porcine) (Heparin) 5,000 unit SUB-Q Q12HR [facility] Last Admin: 02/11/19 09:49 Dose: 5,000 unit Documented by: Hydromorphone HCl (Dilaudid) 0.25 mg IV Q3H PRN PRN Reason: Pain, Moderate (4-6) Dextrose (D10w) 1,000 mls @ 40 mls/hr IV DIRECT [facility] Last Admin: 02/11/19 11:21 Dose: 75 mls/hr Documented by: Cefepime HCl (Cefepime/Ns 1 Gm/100 Ml) 1 gm in 100 mls @ 200 mls/hr IV Q24H [facility] Last Admin: 02/10/19 21:50 Dose: 200 mls/hr Documented by: Sodium Chloride (Nacl 0.9%) 100 mls @ 999 mls/hr IV TREVA PRN PRN Reason: Hypotension Insulin Human Lispro (Humalog) 0 unit SUB-Q ACHS [facility]; Protocol Last Admin: 02/11/19 11:35 Dose: Not Given Documented by: Ondansetron HCl (Zofran) 4 mg IV Q8H PRN PRN Reason: Nausea And Vomiting Oxycodone/Acetaminophen (Percocet 5/325) 1 tab PO Q6H PRN PRN Reason: Pain, Moderate (4-6) Sodium Chloride (Sodium Chloride Flush Syringe 10 Ml) 10 ml IV BID [facility] Last Admin: 02/11/19 09:49 Dose: 10 ml Documented by: Sodium Chloride (Sodium Chloride Flush Syringe 10 Ml) 10 ml IV PRN PRN PRN Reason: LINE FLUSH Last Admin: 02/10/19 06:44 Dose: 10 ml Documented by: Review of Systems ROS unobtainable: due to mental status Physical Examination Vital signs: Vital Signs Resp Pulse Ox 17 97 02/09/19 08:46 02/09/19 08:46 Vital signs reviewed Constitutional: appears uncomfortable, other (elderly looking morbidly obese AAF, normocephalic on BIPAP with mildly increased respiratory effort at rest) Eyes: non-icteric ENT: oropharynx moist, other (BIPAP FFM) Neck: supple, no lymphadenopathy, no JVD, other (+ large neck circumference) Effort: mildly labored Ascultation: Bilateral: clear, diminished breath sounds Percussion: Bilateral: not dull Cardiovascular: regular rate and rhythm Gastrointestinal: normoactive bowel sounds, soft, non-tender, non-distended, other (Protuberant) Integumentary: rash (stasisi dermatitis) Extremities: no cyanosis, no edema, pulses normal, no ischemia or petechiae Neurologic: pupils equal and round, other (Encephalopathic) Psychiatric: other (Unable to assess re: AMS) Results - Laboratory Findings CBC and BMP: 02/18/19 05:15 02/18/19 15:45 ABG POC ABG pH 7.304 (7.35-7.45) L 02/11/19 10:35 POC ABG pCO2 47.7 (35-45) H 02/11/19 10:35 POC ABG pO2 142 (80-105) H 02/11/19 10:35 POC ABG HCO3 23.7 (22-26 mml/L) 02/11/19 10:35 POC ABG Total CO2 25 (23-27mmol/L) 02/11/19 10:35 POC ABG O2 Sat 99 02/11/19 10:35 PT/INR, D-dimer PT 17.8 Sec. (12.2-14.9) H 02/09/19 09:16 INR 1.49 (0.87-1.13) H 02/09/19 09:16 Abnormal lab findings: Abnormal Labs 02/09/19 02/09/19 02/09/19 08:48 09:16 09:16 WBC 14.6 H RBC 2.48 L Hgb 8.2 L Hct 25.4 L MCV 102 H MCH 33 H RDW 16.1 H Seg Neuts % (Manual) 94.0 H Lymphocytes % (Manual) 1.0 L Nucleated RBC % 1.0 H Seg Neutrophils # Man 13.7 H Lymphocytes # (Manual) 0.1 L PT 17.8 H INR 1.49 H POC ABG pH POC ABG pCO2 POC ABG pO2 Sodium Potassium Chloride Carbon Dioxide BUN Creatinine Glucose POC Glucose 51 L Hemoglobin A1c Calcium Total Bilirubin Ammonia Total Creatine Kinase Troponin T Total Protein Albumin Cholesterol LDL Cholesterol Direct HDL Cholesterol TSH Urine WBC (Auto) Urine Creatinine Urine Total Protein 02/09/19 02/09/19 02/09/19 09:16 09:16 09:16 WBC RBC Hgb Hct MCV MCH RDW Seg Neuts % (Manual) Lymphocytes % (Manual) Nucleated RBC % Seg Neutrophils # Man Lymphocytes # (Manual) PT INR POC ABG pH POC ABG pCO2 POC ABG pO2 Sodium 131 L Potassium 6.0 H Chloride 91.4 L Carbon Dioxide 18 L BUN 115 H Creatinine 6.8 H Glucose POC Glucose Hemoglobin A1c Calcium Total Bilirubin 2.90 H Ammonia 61.0 H Total Creatine Kinase 264 H Troponin T 0.073 H Total Protein 8.8 H Albumin 2.6 L Cholesterol 47 L LDL Cholesterol Direct 13 L HDL Cholesterol 27 L TSH 5.570 H Urine WBC (Auto) Urine Creatinine Urine Total Protein 02/09/19 02/09/19 02/09/19 12:47 14:30 14:30 WBC RBC Hgb Hct MCV MCH RDW Seg Neuts % (Manual) Lymphocytes % (Manual) Nucleated RBC % Seg Neutrophils # Man Lymphocytes # (Manual) PT INR POC ABG pH POC ABG pCO2 POC ABG pO2 Sodium 131 L Potassium 5.6 H Chloride 91.8 L Carbon Dioxide 17 L BUN 117 H Creatinine 6.5 H Glucose 50 L POC Glucose Hemoglobin A1c Calcium Total Bilirubin Ammonia Total Creatine Kinase Troponin T Total Protein Albumin Cholesterol LDL Cholesterol Direct HDL Cholesterol TSH Urine WBC (Auto) 32.0 H Urine Creatinine 162.4 H Urine Total Protein 49 H 02/09/19 02/09/19 02/09/19 15:05 15:39 19:03 WBC RBC Hgb Hct MCV MCH RDW Seg Neuts % (Manual) Lymphocytes % (Manual) Nucleated RBC % Seg Neutrophils # Man Lymphocytes # (Manual) PT INR POC ABG pH POC ABG pCO2 POC ABG pO2 Sodium 131 L Potassium 5.7 H Chloride 93.6 L Carbon Dioxide 19 L BUN 111 H Creatinine 7.0 H Glucose 48 L POC Glucose < 40 L 112 H Hemoglobin A1c Calcium Total Bilirubin Ammonia Total Creatine Kinase Troponin T Total Protein Albumin Cholesterol LDL Cholesterol Direct HDL Cholesterol TSH Urine WBC (Auto) Urine Creatinine Urine Total Protein 02/09/19 02/09/19 02/10/19 21:59 23:24 03:06 WBC RBC Hgb Hct MCV MCH RDW Seg Neuts % (Manual) Lymphocytes % (Manual) Nucleated RBC % Seg Neutrophils # Man Lymphocytes # (Manual) PT INR POC ABG pH POC ABG pCO2 POC ABG pO2 Sodium Potassium Chloride Carbon Dioxide BUN Creatinine Glucose POC Glucose 61 L < 40 L Hemoglobin A1c 8.5 H Calcium Total Bilirubin Ammonia Total Creatine Kinase Troponin T Total Protein Albumin Cholesterol LDL Cholesterol Direct HDL Cholesterol TSH Urine WBC (Auto) Urine Creatinine Urine Total Protein 02/10/19 02/10/19 02/10/19 06:36 06:39 07:21 WBC RBC Hgb Hct MCV MCH RDW Seg Neuts % (Manual) Lymphocytes % (Manual) Nucleated RBC % Seg Neutrophils # Man Lymphocytes # (Manual) PT INR POC ABG pH POC ABG pCO2 POC ABG pO2 Sodium 130 L Potassium 6.2 H* Chloride 89.4 L Carbon Dioxide 17 L BUN 124 H Creatinine 6.8 H Glucose 120 H POC Glucose 60 L 120 H Hemoglobin A1c Calcium 8.3 L Total Bilirubin 3.10 H Ammonia Total Creatine Kinase Troponin T Total Protein 8.3 H Albumin 2.4 L Cholesterol LDL Cholesterol Direct HDL Cholesterol TSH Urine WBC (Auto) Urine Creatinine Urine Total Protein 02/10/19 02/10/19 02/10/19 09:28 10:20 10:32 WBC 14.7 H RBC 2.60 L Hgb 8.5 L Hct 26.9 L MCV 104 H MCH 33 H RDW 16.6 H Seg Neuts % (Manual) 96.0 H Lymphocytes % (Manual) 1.0 L Nucleated RBC % 3.0 H Seg Neutrophils # Man 14.1 H Lymphocytes # (Manual) 0.1 L PT INR POC ABG pH POC ABG pCO2 POC ABG pO2 Sodium Potassium 5.9 H Chloride Carbon Dioxide BUN Creatinine Glucose POC Glucose 64 L Hemoglobin A1c Calcium Total Bilirubin Ammonia Total Creatine Kinase Troponin T Total Protein Albumin Cholesterol LDL Cholesterol Direct HDL Cholesterol TSH Urine WBC (Auto) Urine Creatinine Urine Total Protein 02/10/19 02/10/19 02/11/19 14:15 20:06 04:48 WBC RBC Hgb Hct MCV MCH RDW Seg Neuts % (Manual) Lymphocytes % (Manual) Nucleated RBC % Seg Neutrophils # Man Lymphocytes # (Manual) PT INR POC ABG pH POC ABG pCO2 POC ABG pO2 Sodium 130 L Potassium Chloride 91.2 L Carbon Dioxide 20 L BUN 81 H Creatinine 5.7 H Glucose POC Glucose 67 L 113 H Hemoglobin A1c Calcium 8.1 L Total Bilirubin Ammonia Total Creatine Kinase Troponin T Total Protein Albumin Cholesterol LDL Cholesterol Direct HDL Cholesterol TSH Urine WBC (Auto) Urine Creatinine Urine Total Protein 02/11/19 02/11/19 02/11/19 07:56 10:35 11:46 WBC RBC Hgb Hct MCV MCH RDW Seg Neuts % (Manual) Lymphocytes % (Manual) Nucleated RBC % Seg Neutrophils # Man Lymphocytes # (Manual) PT INR POC ABG pH 7.304 L POC ABG pCO2 47.7 H POC ABG pO2 142 H Sodium Potassium Chloride Carbon Dioxide BUN Creatinine Glucose POC Glucose 124 H 128 H Hemoglobin A1c Calcium Total Bilirubin Ammonia Total Creatine Kinase Troponin T Total Protein Albumin Cholesterol LDL Cholesterol Direct HDL Cholesterol TSH Urine WBC (Auto) Urine Creatinine Urine Total Protein Assessment and Plan Acute hypercapnic respiratory failure Acute toxic-metabolic encephalopathy Sepsis- fevers, leukocytosis, hypotension, encephalopathy JESÚS on CKD requiring HD Extreme obesity AUDI on PAP at home -Transfer to ICU -Continue with BIPAP with low threshold fro orally intubating -Keep NPO for now -Volume resuscitation per sepsis protocol, while monitoring pulmonary status closely -Aspiration precautions, HOB>40 degrees -CXR, ABG in am -Daily SAT, SBT as tolerated -Empiric antibiotics -Place on contact isolation -VTE prophylaxis -Stress ulcer prophylaxis - Accuchecks with glycemic control for SSI (While critically ill target blood glucose of 140-180 mg/dL; avoid hypoglycemia) - mobility protocol for pressure ulcer prevention - Monitor hemodynamics closely -Monitor electrolyte profile closely and replete as indicated -Mota catheter in this critically ill patient, with poor urine output, requiring accurate intake and output monitoring- new HD. Will evaluate daily for ongoing need for an indwelling Mota catheter. Discussed with Dr. Sosa Updated the family at the bedside Discussed with RT and RN CONDITION: CRITICAL PROGNOSIS: GUARDED CODE STATUS: FULL CODE The high probability of a clinically significant, sudden or life-threatening deterioration of the [respiratory, cardiovascular, neurology] system(s) required my full and direct attention, intervention and personal management. The aggregate critical care time was [55] minutes without overlap. Time includes spent on; [x] Data Review and interpretation [x] Patient assessment and monitoring of vital signs [x] Documentation [x] Medication orders and managementt
[2019-02-11] MEDS: NORepinephrine/NS 4 MG-250 ML 4 MG/250 ML BAG IV SCH ×2 (15:13→22:00)
[2019-02-11] MEDS: CEFEPIME/NS 1 GM/100 ML 1 GM/100 ML BAG IV SCH (15:52)
[2019-02-11] MEDS ORDERED: SODIUM CHLORIDE*PRIMING MACHINE ONLY FOR DIALYSIS MC ONE (23:41)
[2019-02-12] MEDS: NORepinephrine/NS 4 MG-250 ML 4 MG/250 ML BAG IV SCH ×5 (00:47→22:46)
[2019-02-12] MEDS: IPRATROPIUM/ALBUTEROL SULFATE 3 ML AMPUL.NEB IH SCH ×4 (01:14→19:38)
[2019-02-12] MEDS: DEXTROSE 10% IN WATER 1,000 ML IV SCH (02:38)
[2019-02-12 06:38] LABS: Calcium 8.3 mg/dL (8.4-10.2)
[2019-02-12] MEDS: GABAPENTIN 400 MG CAP PO SCH ×3 (06:42→23:08)
--- NOTE | 2019-02-12 09:01 | Progress Note ---
Assessment and Plan Acute hypercapnic respiratory failure Acute toxic-metabolic encephalopathy Severe Sepsis with Shock JESÚS on CKD requiring Hemodialysis Extreme obesity AUDI/OHS - continue to wean vasopressor support for target MAP > 65 mmHg - begin IVNS @ 75ml's/hr X 2 liters for Sepsis then reassess - begin Pepcid for GI prophylaxis - give daytime breaks on BIPAP as tolerated (still acidotic and will watch closely) - increase IPAP to 24 & set rate to 20/min to increase minute ventilation re: respiratory compensation - ID consulted - continue empiric antibiotics for Sepsis till sen by ID (de-escalate based on clinical and microbiologic data) - continue GI & VTE prophylaxis - fall precautions - neurochecks - follow MRI report - continue accuchecks with glycemic control per SSI (While critically ill target blood glucose of 140-180 mg/dL; avoid hypoglycemia) - mobility protocol for pressure ulcer prevention - Monitor hemodynamics closely - Monitor electrolyte profile closely and replete as indicated - resume pertinent chronic home medications as clinically indicated - continue lynch catheter in this critically ill patient, with JESÚS requiring accurate intake and output monitoring - continue other care per attending / other data center consultant's ..... care plan discussed with brother in room ... re-evaluate in am & prn CONDITION: CRITICAL PROGNOSIS: GUARDED-POOR CODE STATUS: FULL CODE The high probability of a clinically significant, sudden or life-threatening deterioration of the [respiratory, cardiovascular, neurology] system(s) required my full and direct attention, intervention and personal management. The aggregate critical care time was [33] minutes without overlap. Time includes spent on; [x] Data Review and interpretation [x] Patient assessment and monitoring of vital signs [x] Documentation [x] Medication orders and management Subjective Date of service: 02/12/19 Principal diagnosis: Ac. hypercapnic resp. failure; Severe Sepsis with Shock; JESÚS on CKD; AUDI Interval history: Patient is seen today for: Acute hypercapnic respiratory failure; Acute toxic- metabolic encephalopathy; Severe Sepsis with Shock ; JESÚS on CKD requiring Hemodialysis; Extreme obesity; AUDI/OHS Seen and examined at bedside; 24hour events reviewed; nursing and respiratory care staff consulted; no adverse overnight events reported to me; resting peacefully in bed; remains on continuous BIPAP therapy; still lethargic; brother is visiting; No emesis or overt aspiration; Afebrile; still on Levophed @ 10 tavo's/min Objective Vital Signs - 12hr 02/11/19 02/11/19 02/11/19 21:00 21:11 21:15 Temperature Pulse Rate 82 81 86 Pulse Rate [ Anterior Bilateral Throughout] Pulse Rate [ From Monitor] Respiratory 12 14 Rate Respiratory Rate [Anterior Bilateral Throughout] Blood Pressure 128/45 128/45 141/77 O2 Sat by Pulse 100 100 Oximetry O2 Sat by Pulse Oximetry [ Anterior Bilateral Throughout] 02/11/19 02/11/19 02/11/19 21:17 21:21 21:25 Temperature Pulse Rate 80 79 Pulse Rate [ 83 Anterior Bilateral Throughout] Pulse Rate [ From Monitor] Respiratory 18 12 Rate Respiratory 20 Rate [Anterior Bilateral Throughout] Blood Pressure 141/77 141/77 O2 Sat by Pulse 99 99 99 Oximetry O2 Sat by Pulse Oximetry [ Anterior Bilateral Throughout] 02/11/19 02/11/19 02/11/19 21:30 21:41 21:45 Temperature Pulse Rate 87 82 69 Pulse Rate [ Anterior Bilateral Throughout] Pulse Rate [ From Monitor] Respiratory 13 13 Rate Respiratory Rate [Anterior Bilateral Throughout] Blood Pressure 152/68 152/68 138/67 O2 Sat by Pulse 100 100 Oximetry O2 Sat by Pulse Oximetry [ Anterior Bilateral Throughout] 02/11/19 02/11/19 02/11/19 21:51 22:00 22:11 Temperature Pulse Rate 90 81 84 Pulse Rate [ Anterior Bilateral Throughout] Pulse Rate [ From Monitor] Respiratory 13 12 13 Rate Respiratory Rate [Anterior Bilateral Throughout] Blood Pressure 138/67 141/64 141/64 O2 Sat by Pulse 100 98 100 Oximetry O2 Sat by Pulse Oximetry [ Anterior Bilateral Throughout] 02/11/19 02/11/19 02/11/19 22:15 22:21 22:30 Temperature 100.0 F H Pulse Rate 82 84 78 Pulse Rate [ Anterior Bilateral Throughout] Pulse Rate [ From Monitor] Respiratory 16 18 Rate Respiratory Rate [Anterior Bilateral Throughout] Blood Pressure 140/62 130/65 130/65 O2 Sat by Pulse 100 Oximetry O2 Sat by Pulse 100 Oximetry [ Anterior Bilateral Throughout] 02/11/19 02/11/19 02/11/19 22:31 22:41 22:51 Temperature Pulse Rate 85 89 81 Pulse Rate [ Anterior Bilateral Throughout] Pulse Rate [ From Monitor] Respiratory 15 19 27 H Rate Respiratory Rate [Anterior Bilateral Throughout] Blood Pressure 141/70 141/70 127/58 O2 Sat by Pulse 98 100 100 Oximetry O2 Sat by Pulse Oximetry [ Anterior Bilateral Throughout] 02/11/19 02/11/19 02/11/19 23:00 23:05 23:11 Temperature Pulse Rate 78 79 78 Pulse Rate [ Anterior Bilateral Throughout] Pulse Rate [ From Monitor] Respiratory 14 22 24 Rate Respiratory Rate [Anterior Bilateral Throughout] Blood Pressure 131/59 131/59 131/59 O2 Sat by Pulse 97 99 100 Oximetry O2 Sat by Pulse Oximetry [ Anterior Bilateral Throughout] 02/11/19 02/11/19 02/11/19 23:21 23:30 23:41 Temperature Pulse Rate 81 86 77 Pulse Rate [ Anterior Bilateral Throughout] Pulse Rate [ From Monitor] Respiratory 17 13 14 Rate Respiratory Rate [Anterior Bilateral Throughout] Blood Pressure 124/50 127/49 127/49 O2 Sat by Pulse 100 97 100 Oximetry O2 Sat by Pulse Oximetry [ Anterior Bilateral Throughout] 02/11/19 02/12/19 02/12/19 23:51 00:00 00:10 Temperature 100.5 F H Pulse Rate 77 84 75 Pulse Rate [ Anterior Bilateral Throughout] Pulse Rate [ 79 From Monitor] Respiratory 17 22 23 Rate Respiratory Rate [Anterior Bilateral Throughout] Blood Pressure 118/49 118/49 O2 Sat by Pulse 99 98 100 Oximetry O2 Sat by Pulse Oximetry [ Anterior Bilateral Throughout] 02/12/19 02/12/19 02/12/19 00:18 00:20 00:30 Temperature Pulse Rate 75 77 83 Pulse Rate [ Anterior Bilateral Throughout] Pulse Rate [ From Monitor] Respiratory 31 H 21 33 H Rate Respiratory Rate [Anterior Bilateral Throughout] Blood Pressure 113/53 113/53 97/48 O2 Sat by Pulse 99 100 96 Oximetry O2 Sat by Pulse Oximetry [ Anterior Bilateral Throughout] 02/12/19 02/12/19 02/12/19 00:40 00:50 01:00 Temperature Pulse Rate 72 75 75 Pulse Rate [ Anterior Bilateral Throughout] Pulse Rate [ From Monitor] Respiratory 24 13 17 Rate Respiratory Rate [Anterior Bilateral Throughout] Blood Pressure 97/48 94/46 110/56 O2 Sat by Pulse 99 98 96 Oximetry O2 Sat by Pulse Oximetry [ Anterior Bilateral Throughout] 02/12/19 02/12/19 02/12/19 01:10 01:20 01:25 Temperature Pulse Rate 73 73 Pulse Rate [ 72 Anterior Bilateral Throughout] Pulse Rate [ From Monitor] Respiratory 30 H 25 H Rate Respiratory 20 Rate [Anterior Bilateral Throughout] Blood Pressure 110/56 99/47 O2 Sat by Pulse 98 100 Oximetry O2 Sat by Pulse Oximetry [ Anterior Bilateral Throughout] 02/12/19 02/12/19 02/12/19 01:30 01:40 01:50 Temperature Pulse Rate 73 74 72 Pulse Rate [ Anterior Bilateral Throughout] Pulse Rate [ From Monitor] Respiratory 14 17 20 Rate Respiratory Rate [Anterior Bilateral Throughout] Blood Pressure 106/51 106/51 106/52 O2 Sat by Pulse 97 99 99 Oximetry O2 Sat by Pulse Oximetry [ Anterior Bilateral Throughout] 02/12/19 02/12/19 02/12/19 02:00 02:10 02:20 Temperature Pulse Rate 71 72 72 Pulse Rate [ Anterior Bilateral Throughout] Pulse Rate [ From Monitor] Respiratory 26 H 16 17 Rate Respiratory Rate [Anterior Bilateral Throughout] Blood Pressure 98/44 98/44 99/49 O2 Sat by Pulse 96 98 98 Oximetry O2 Sat by Pulse Oximetry [ Anterior Bilateral Throughout] 02/12/19 02/12/19 02/12/19 02:30 02:40 02:50 Temperature Pulse Rate 69 72 72 Pulse Rate [ Anterior Bilateral Throughout] Pulse Rate [ From Monitor] Respiratory 31 H 24 25 H Rate Respiratory Rate [Anterior Bilateral Throughout] Blood Pressure 101/49 101/49 105/49 O2 Sat by Pulse 97 98 98 Oximetry O2 Sat by Pulse Oximetry [ Anterior Bilateral Throughout] 02/12/19 02/12/19 02/12/19 03:00 03:10 03:20 Temperature Pulse Rate 71 71 70 Pulse Rate [ Anterior Bilateral Throughout] Pulse Rate [ From Monitor] Respiratory 22 22 21 Rate Respiratory Rate [Anterior Bilateral Throughout] Blood Pressure 105/51 105/51 105/50 O2 Sat by Pulse 96 99 99 Oximetry O2 Sat by Pulse Oximetry [ Anterior Bilateral Throughout] 02/12/19 02/12/19 02/12/19 03:30 03:31 03:40 Temperature Pulse Rate 71 73 73 Pulse Rate [ Anterior Bilateral Throughout] Pulse Rate [ From Monitor] Respiratory 21 18 18 Rate Respiratory Rate [Anterior Bilateral Throughout] Blood Pressure 100/53 100/53 100/53 O2 Sat by Pulse 96 98 99 Oximetry O2 Sat by Pulse Oximetry [ Anterior Bilateral Throughout] 02/12/19 02/12/19 02/12/19 03:50 04:00 04:10 Temperature 100.4 F H Pulse Rate 75 72 72 Pulse Rate [ Anterior Bilateral Throughout] Pulse Rate [ 73 From Monitor] Respiratory 40 H 22 30 H Rate Respiratory Rate [Anterior Bilateral Throughout] Blood Pressure 94/52 97/52 97/52 O2 Sat by Pulse 98 97 99 Oximetry O2 Sat by Pulse Oximetry [ Anterior Bilateral Throughout] 02/12/19 02/12/19 02/12/19 04:20 04:30 04:40 Temperature Pulse Rate 85 78 71 Pulse Rate [ Anterior Bilateral Throughout] Pulse Rate [ From Monitor] Respiratory 31 H 28 H 14 Rate Respiratory Rate [Anterior Bilateral Throughout] Blood Pressure 97/52 96/57 97/52 O2 Sat by Pulse 100 98 100 Oximetry O2 Sat by Pulse Oximetry [ Anterior Bilateral Throughout] 02/12/19 02/12/19 02/12/19 04:50 05:00 05:10 Temperature Pulse Rate 71 71 71 Pulse Rate [ Anterior Bilateral Throughout] Pulse Rate [ From Monitor] Respiratory 16 29 H 14 Rate Respiratory Rate [Anterior Bilateral Throughout] Blood Pressure 103/49 109/51 96/57 O2 Sat by Pulse 99 97 99 Oximetry O2 Sat by Pulse Oximetry [ Anterior Bilateral Throughout] 02/12/19 02/12/19 02/12/19 05:20 05:30 05:40 Temperature Pulse Rate 71 72 79 Pulse Rate [ Anterior Bilateral Throughout] Pulse Rate [ From Monitor] Respiratory 15 17 11 L Rate Respiratory Rate [Anterior Bilateral Throughout] Blood Pressure 116/55 114/53 103/49 O2 Sat by Pulse 100 95 99 Oximetry O2 Sat by Pulse Oximetry [ Anterior Bilateral Throughout] 02/12/19 02/12/19 02/12/19 05:50 06:00 06:10 Temperature Pulse Rate 70 71 70 Pulse Rate [ Anterior Bilateral Throughout] Pulse Rate [ From Monitor] Respiratory 17 16 15 Rate Respiratory Rate [Anterior Bilateral Throughout] Blood Pressure 114/54 111/50 111/50 O2 Sat by Pulse 99 96 99 Oximetry O2 Sat by Pulse Oximetry [ Anterior Bilateral Throughout] 02/12/19 02/12/19 02/12/19 06:20 06:30 06:40 Temperature Pulse Rate 72 69 75 Pulse Rate [ Anterior Bilateral Throughout] Pulse Rate [ From Monitor] Respiratory 16 17 16 Rate Respiratory Rate [Anterior Bilateral Throughout] Blood Pressure 114/55 117/54 117/54 O2 Sat by Pulse 100 97 100 Oximetry O2 Sat by Pulse Oximetry [ Anterior Bilateral Throughout] 02/12/19 02/12/19 06:50 07:00 Temperature Pulse Rate 70 73 Pulse Rate [ Anterior Bilateral Throughout] Pulse Rate [ From Monitor] Respiratory 13 15 Rate Respiratory Rate [Anterior Bilateral Throughout] Blood Pressure 120/61 100/51 O2 Sat by Pulse 99 96 Oximetry O2 Sat by Pulse Oximetry [ Anterior Bilateral Throughout] Constitutional: appears uncomfortable, other (elderly looking morbidly obese AAF, normocephalic on BIPAP with mildly increased respiratory effort at rest) Eyes: non-icteric ENT: oropharynx moist, other (BIPAP FFM) Neck: supple, no lymphadenopathy, no JVD, other (+ large neck circumference) Effort: mildly labored Ascultation: Bilateral: clear, diminished breath sounds Percussion: Bilateral: not dull Cardiovascular: regular rate and rhythm Gastrointestinal: normoactive bowel sounds, soft, non-tender, non-distended, other (Protuberant) Integumentary: rash (stasisi dermatitis) Extremities: no cyanosis, no edema, pulses normal, no ischemia or petechiae Neurologic: pupils equal and round, other (Encephalopathic) Psychiatric: other (Unable to assess re: AMS) CBC and BMP: 02/10/19 09:28 02/12/19 05:35 ABG, PT/INR, D-dimer: ABG POC ABG pH 7.304 (7.35-7.45) L 02/11/19 10:35 POC ABG pCO2 47.7 (35-45) H 02/11/19 10:35 POC ABG pO2 142 (80-105) H 02/11/19 10:35 POC ABG HCO3 23.7 (22-26 mml/L) 02/11/19 10:35 POC ABG Total CO2 25 (23-27mmol/L) 02/11/19 10:35 POC ABG O2 Sat 99 02/11/19 10:35 PT/INR, D-dimer PT 17.8 Sec. (12.2-14.9) H 02/09/19 09:16 INR 1.49 (0.87-1.13) H 02/09/19 09:16 Abnormal lab findings: Abnormal Labs 02/09/19 02/09/19 02/09/19 08:48 09:16 09:16 WBC 14.6 H RBC 2.48 L Hgb 8.2 L Hct 25.4 L MCV 102 H MCH 33 H RDW 16.1 H Seg Neuts % (Manual) 94.0 H Lymphocytes % (Manual) 1.0 L Nucleated RBC % 1.0 H Seg Neutrophils # Man 13.7 H Lymphocytes # (Manual) 0.1 L PT 17.8 H INR 1.49 H POC ABG pH POC ABG pCO2 POC ABG pO2 Sodium Potassium Chloride Carbon Dioxide BUN Creatinine Glucose POC Glucose 51 L Hemoglobin A1c Calcium Total Bilirubin Ammonia Total Creatine Kinase Troponin T Total Protein Albumin Cholesterol LDL Cholesterol Direct HDL Cholesterol TSH Urine WBC (Auto) Urine Creatinine Urine Total Protein 02/09/19 02/09/19 02/09/19 09:16 09:16 09:16 WBC RBC Hgb Hct MCV MCH RDW Seg Neuts % (Manual) Lymphocytes % (Manual) Nucleated RBC % Seg Neutrophils # Man Lymphocytes # (Manual) PT INR POC ABG pH POC ABG pCO2 POC ABG pO2 Sodium 131 L Potassium 6.0 H Chloride 91.4 L Carbon Dioxide 18 L BUN 115 H Creatinine 6.8 H Glucose POC Glucose Hemoglobin A1c Calcium Total Bilirubin 2.90 H Ammonia 61.0 H Total Creatine Kinase 264 H Troponin T 0.073 H Total Protein 8.8 H Albumin 2.6 L Cholesterol 47 L LDL Cholesterol Direct 13 L HDL Cholesterol 27 L TSH 5.570 H Urine WBC (Auto) Urine Creatinine Urine Total Protein 02/09/19 02/09/19 02/09/19 12:47 14:30 14:30 WBC RBC Hgb Hct MCV MCH RDW Seg Neuts % (Manual) Lymphocytes % (Manual) Nucleated RBC % Seg Neutrophils # Man Lymphocytes # (Manual) PT INR POC ABG pH POC ABG pCO2 POC ABG pO2 Sodium 131 L Potassium 5.6 H Chloride 91.8 L Carbon Dioxide 17 L BUN 117 H Creatinine 6.5 H Glucose 50 L POC Glucose Hemoglobin A1c Calcium Total Bilirubin Ammonia Total Creatine Kinase Troponin T Total Protein Albumin Cholesterol LDL Cholesterol Direct HDL Cholesterol TSH Urine WBC (Auto) 32.0 H Urine Creatinine 162.4 H Urine Total Protein 49 H 02/09/19 02/09/19 02/09/19 15:05 15:39 19:03 WBC RBC Hgb Hct MCV MCH RDW Seg Neuts % (Manual) Lymphocytes % (Manual) Nucleated RBC % Seg Neutrophils # Man Lymphocytes # (Manual) PT INR POC ABG pH POC ABG pCO2 POC ABG pO2 Sodium 131 L Potassium 5.7 H Chloride 93.6 L Carbon Dioxide 19 L BUN 111 H Creatinine 7.0 H Glucose 48 L POC Glucose < 40 L 112 H Hemoglobin A1c Calcium Total Bilirubin Ammonia Total Creatine Kinase Troponin T Total Protein Albumin Cholesterol LDL Cholesterol Direct HDL Cholesterol TSH Urine WBC (Auto) Urine Creatinine Urine Total Protein 02/09/19 02/09/19 02/10/19 21:59 23:24 03:06 WBC RBC Hgb Hct MCV MCH RDW Seg Neuts % (Manual) Lymphocytes % (Manual) Nucleated RBC % Seg Neutrophils # Man Lymphocytes # (Manual) PT INR POC ABG pH POC ABG pCO2 POC ABG pO2 Sodium Potassium Chloride Carbon Dioxide BUN Creatinine Glucose POC Glucose 61 L < 40 L Hemoglobin A1c 8.5 H Calcium Total Bilirubin Ammonia Total Creatine Kinase Troponin T Total Protein Albumin Cholesterol LDL Cholesterol Direct HDL Cholesterol TSH Urine WBC (Auto) Urine Creatinine Urine Total Protein 02/10/19 02/10/19 02/10/19 06:36 06:39 07:21 WBC RBC Hgb Hct MCV MCH RDW Seg Neuts % (Manual) Lymphocytes % (Manual) Nucleated RBC % Seg Neutrophils # Man Lymphocytes # (Manual) PT INR POC ABG pH POC ABG pCO2 POC ABG pO2 Sodium 130 L Potassium 6.2 H* Chloride 89.4 L Carbon Dioxide 17 L BUN 124 H Creatinine 6.8 H Glucose 120 H POC Glucose 60 L 120 H Hemoglobin A1c Calcium 8.3 L Total Bilirubin 3.10 H Ammonia Total Creatine Kinase Troponin T Total Protein 8.3 H Albumin 2.4 L Cholesterol LDL Cholesterol Direct HDL Cholesterol TSH Urine WBC (Auto) Urine Creatinine Urine Total Protein 02/10/19 02/10/19 02/10/19 09:28 10:20 10:32 WBC 14.7 H RBC 2.60 L Hgb 8.5 L Hct 26.9 L MCV 104 H MCH 33 H RDW 16.6 H Seg Neuts % (Manual) 96.0 H Lymphocytes % (Manual) 1.0 L Nucleated RBC % 3.0 H Seg Neutrophils # Man 14.1 H Lymphocytes # (Manual) 0.1 L PT INR POC ABG pH POC ABG pCO2 POC ABG pO2 Sodium Potassium 5.9 H Chloride Carbon Dioxide BUN Creatinine Glucose POC Glucose 64 L Hemoglobin A1c Calcium Total Bilirubin Ammonia Total Creatine Kinase Troponin T Total Protein Albumin Cholesterol LDL Cholesterol Direct HDL Cholesterol TSH Urine WBC (Auto) Urine Creatinine Urine Total Protein 02/10/19 02/10/19 02/11/19 14:15 20:06 04:48 WBC RBC Hgb Hct MCV MCH RDW Seg Neuts % (Manual) Lymphocytes % (Manual) Nucleated RBC % Seg Neutrophils # Man Lymphocytes # (Manual) PT INR POC ABG pH POC ABG pCO2 POC ABG pO2 Sodium 130 L Potassium Chloride 91.2 L Carbon Dioxide 20 L BUN 81 H Creatinine 5.7 H Glucose POC Glucose 67 L 113 H Hemoglobin A1c Calcium 8.1 L Total Bilirubin Ammonia Total Creatine Kinase Troponin T Total Protein Albumin Cholesterol LDL Cholesterol Direct HDL Cholesterol TSH Urine WBC (Auto) Urine Creatinine Urine Total Protein 02/11/19 02/11/19 02/11/19 07:56 10:35 11:46 WBC RBC Hgb Hct MCV MCH RDW Seg Neuts % (Manual) Lymphocytes % (Manual) Nucleated RBC % Seg Neutrophils # Man Lymphocytes # (Manual) PT INR POC ABG pH 7.304 L POC ABG pCO2 47.7 H POC ABG pO2 142 H Sodium Potassium Chloride Carbon Dioxide BUN Creatinine Glucose POC Glucose 124 H 128 H Hemoglobin A1c Calcium Total Bilirubin Ammonia Total Creatine Kinase Troponin T Total Protein Albumin Cholesterol LDL Cholesterol Direct HDL Cholesterol TSH Urine WBC (Auto) Urine Creatinine Urine Total Protein 02/11/19 02/11/19 02/11/19 14:56 18:16 23:48 WBC RBC Hgb Hct MCV MCH RDW Seg Neuts % (Manual) Lymphocytes % (Manual) Nucleated RBC % Seg Neutrophils # Man Lymphocytes # (Manual) PT INR POC ABG pH POC ABG pCO2 POC ABG pO2 Sodium Potassium Chloride Carbon Dioxide BUN Creatinine Glucose POC Glucose 146 H 136 H 141 H Hemoglobin A1c Calcium Total Bilirubin Ammonia Total Creatine Kinase Troponin T Total Protein Albumin Cholesterol LDL Cholesterol Direct HDL Cholesterol TSH Urine WBC (Auto) Urine Creatinine Urine Total Protein 02/12/19 02/12/19 05:35 05:53 WBC RBC Hgb Hct MCV MCH RDW Seg Neuts % (Manual) Lymphocytes % (Manual) Nucleated RBC % Seg Neutrophils # Man Lymphocytes # (Manual) PT INR POC ABG pH POC ABG pCO2 POC ABG pO2 Sodium 133 L Potassium Chloride 93.8 L Carbon Dioxide 19 L BUN 61 H Creatinine 4.5 H Glucose 165 H POC Glucose 170 H Hemoglobin A1c Calcium 8.3 L Total Bilirubin Ammonia Total Creatine Kinase Troponin T Total Protein Albumin Cholesterol LDL Cholesterol Direct HDL Cholesterol TSH Urine WBC (Auto) Urine Creatinine Urine Total Protein Chest x-ray: image reviewed (elevated right hemidiaphragm; hypoventilation) Allied health notes reviewed: nursing
--- NOTE | 2019-02-12 09:45 | Progress Note ---
Assessment and Plan - Patient Problems (1) JESÚS (acute kidney injury) Current Visit: Yes Status: Acute Plan to address problem: Acute kidney injury on chronic kidney disease Baseline creatinine 1.6 in 2017 Admission creatinine of 7 with hyperkalemia will continue dialysis We will plan to repeat his dialysis today for VOLUME OVERLOAD Reviewed urinalysis numerous red and white cells Strict in and output (2) Hyperkalemia Current Visit: Yes Status: Acute Plan to address problem: Hyperkalemia resolved continue dialysis (3) Diabetes Current Visit: No Status: Acute Plan to address problem: Diabetes mellitus type 2 Continue medications (4) Acute encephalopathy Current Visit: Yes Status: Acute Plan to address problem: Encephalopathy Improving Subjective Principal diagnosis: Ac. hypercapnic resp. failure; Severe Sepsis with Shock; JESÚS on CKD; AUDI Interval history: 68 year old female with medical history significant for altered mental status , acute kidney injury ,hypoglycemia , baseline creatinine of 1.6mg/dl in 2017 admitted with hyperkalemia and Acute kidney injury Patient seen on Bipap EpaP : 18 , IPAP : 10 has femoral vas cath. Will plan for repeat HD today. Objective - Vital Signs Vital signs: Vital Signs - 12hr 02/11/19 02/11/19 02/11/19 21:41 21:45 21:51 Temperature Pulse Rate 82 69 90 Pulse Rate [ Anterior Bilateral Throughout] Pulse Rate [ From Monitor] Respiratory 13 13 Rate Respiratory Rate [Anterior Bilateral Throughout] Blood Pressure 152/68 138/67 138/67 O2 Sat by Pulse 100 100 Oximetry O2 Sat by Pulse Oximetry [ Anterior Bilateral Throughout] 02/11/19 02/11/19 02/11/19 22:00 22:11 22:15 Temperature Pulse Rate 81 84 82 Pulse Rate [ Anterior Bilateral Throughout] Pulse Rate [ From Monitor] Respiratory 12 13 Rate Respiratory Rate [Anterior Bilateral Throughout] Blood Pressure 141/64 141/64 140/62 O2 Sat by Pulse 98 100 Oximetry O2 Sat by Pulse Oximetry [ Anterior Bilateral Throughout] 02/11/19 02/11/19 02/11/19 22:21 22:30 22:31 Temperature 100.0 F H Pulse Rate 84 78 85 Pulse Rate [ Anterior Bilateral Throughout] Pulse Rate [ From Monitor] Respiratory 16 18 15 Rate Respiratory Rate [Anterior Bilateral Throughout] Blood Pressure 130/65 130/65 141/70 O2 Sat by Pulse 100 98 Oximetry O2 Sat by Pulse 100 Oximetry [ Anterior Bilateral Throughout] 02/11/19 02/11/19 02/11/19 22:41 22:51 23:00 Temperature Pulse Rate 89 81 78 Pulse Rate [ Anterior Bilateral Throughout] Pulse Rate [ From Monitor] Respiratory 19 27 H 14 Rate Respiratory Rate [Anterior Bilateral Throughout] Blood Pressure 141/70 127/58 131/59 O2 Sat by Pulse 100 100 97 Oximetry O2 Sat by Pulse Oximetry [ Anterior Bilateral Throughout] 02/11/19 02/11/19 02/11/19 23:05 23:11 23:21 Temperature Pulse Rate 79 78 81 Pulse Rate [ Anterior Bilateral Throughout] Pulse Rate [ From Monitor] Respiratory 22 24 17 Rate Respiratory Rate [Anterior Bilateral Throughout] Blood Pressure 131/59 131/59 124/50 O2 Sat by Pulse 99 100 100 Oximetry O2 Sat by Pulse Oximetry [ Anterior Bilateral Throughout] 02/11/19 02/11/19 02/11/19 23:30 23:41 23:51 Temperature Pulse Rate 86 77 77 Pulse Rate [ Anterior Bilateral Throughout] Pulse Rate [ From Monitor] Respiratory 13 14 17 Rate Respiratory Rate [Anterior Bilateral Throughout] Blood Pressure 127/49 127/49 118/49 O2 Sat by Pulse 97 100 99 Oximetry O2 Sat by Pulse Oximetry [ Anterior Bilateral Throughout] 02/12/19 02/12/19 02/12/19 00:00 00:10 00:18 Temperature 100.5 F H Pulse Rate 84 75 75 Pulse Rate [ Anterior Bilateral Throughout] Pulse Rate [ 79 From Monitor] Respiratory 22 23 31 H Rate Respiratory Rate [Anterior Bilateral Throughout] Blood Pressure 118/49 113/53 O2 Sat by Pulse 98 100 99 Oximetry O2 Sat by Pulse Oximetry [ Anterior Bilateral Throughout] 02/12/19 02/12/19 02/12/19 00:20 00:30 00:40 Temperature Pulse Rate 77 83 72 Pulse Rate [ Anterior Bilateral Throughout] Pulse Rate [ From Monitor] Respiratory 21 33 H 24 Rate Respiratory Rate [Anterior Bilateral Throughout] Blood Pressure 113/53 97/48 97/48 O2 Sat by Pulse 100 96 99 Oximetry O2 Sat by Pulse Oximetry [ Anterior Bilateral Throughout] 02/12/19 02/12/19 02/12/19 00:50 01:00 01:10 Temperature Pulse Rate 75 75 73 Pulse Rate [ Anterior Bilateral Throughout] Pulse Rate [ From Monitor] Respiratory 13 17 30 H Rate Respiratory Rate [Anterior Bilateral Throughout] Blood Pressure 94/46 110/56 110/56 O2 Sat by Pulse 98 96 98 Oximetry O2 Sat by Pulse Oximetry [ Anterior Bilateral Throughout] 02/12/19 02/12/19 02/12/19 01:20 01:25 01:30 Temperature Pulse Rate 73 73 Pulse Rate [ 72 Anterior Bilateral Throughout] Pulse Rate [ From Monitor] Respiratory 25 H 14 Rate Respiratory 20 Rate [Anterior Bilateral Throughout] Blood Pressure 99/47 106/51 O2 Sat by Pulse 100 97 Oximetry O2 Sat by Pulse Oximetry [ Anterior Bilateral Throughout] 02/12/19 02/12/19 02/12/19 01:40 01:50 02:00 Temperature Pulse Rate 74 72 71 Pulse Rate [ Anterior Bilateral Throughout] Pulse Rate [ From Monitor] Respiratory 17 20 26 H Rate Respiratory Rate [Anterior Bilateral Throughout] Blood Pressure 106/51 106/52 98/44 O2 Sat by Pulse 99 99 96 Oximetry O2 Sat by Pulse Oximetry [ Anterior Bilateral Throughout] 02/12/19 02/12/19 02/12/19 02:10 02:20 02:30 Temperature Pulse Rate 72 72 69 Pulse Rate [ Anterior Bilateral Throughout] Pulse Rate [ From Monitor] Respiratory 16 17 31 H Rate Respiratory Rate [Anterior Bilateral Throughout] Blood Pressure 98/44 99/49 101/49 O2 Sat by Pulse 98 98 97 Oximetry O2 Sat by Pulse Oximetry [ Anterior Bilateral Throughout] 02/12/19 02/12/19 02/12/19 02:40 02:50 03:00 Temperature Pulse Rate 72 72 71 Pulse Rate [ Anterior Bilateral Throughout] Pulse Rate [ From Monitor] Respiratory 24 25 H 22 Rate Respiratory Rate [Anterior Bilateral Throughout] Blood Pressure 101/49 105/49 105/51 O2 Sat by Pulse 98 98 96 Oximetry O2 Sat by Pulse Oximetry [ Anterior Bilateral Throughout] 02/12/19 02/12/19 02/12/19 03:10 03:20 03:30 Temperature Pulse Rate 71 70 71 Pulse Rate [ Anterior Bilateral Throughout] Pulse Rate [ From Monitor] Respiratory 22 21 21 Rate Respiratory Rate [Anterior Bilateral Throughout] Blood Pressure 105/51 105/50 100/53 O2 Sat by Pulse 99 99 96 Oximetry O2 Sat by Pulse Oximetry [ Anterior Bilateral Throughout] 02/12/19 02/12/19 02/12/19 03:31 03:40 03:50 Temperature Pulse Rate 73 73 75 Pulse Rate [ Anterior Bilateral Throughout] Pulse Rate [ From Monitor] Respiratory 18 18 40 H Rate Respiratory Rate [Anterior Bilateral Throughout] Blood Pressure 100/53 100/53 94/52 O2 Sat by Pulse 98 99 98 Oximetry O2 Sat by Pulse Oximetry [ Anterior Bilateral Throughout] 02/12/19 02/12/19 02/12/19 04:00 04:10 04:20 Temperature 100.4 F H Pulse Rate 72 72 85 Pulse Rate [ Anterior Bilateral Throughout] Pulse Rate [ 73 From Monitor] Respiratory 22 30 H 31 H Rate Respiratory Rate [Anterior Bilateral Throughout] Blood Pressure 97/52 97/52 97/52 O2 Sat by Pulse 97 99 100 Oximetry O2 Sat by Pulse Oximetry [ Anterior Bilateral Throughout] 02/12/19 02/12/19 02/12/19 04:30 04:40 04:50 Temperature Pulse Rate 78 71 71 Pulse Rate [ Anterior Bilateral Throughout] Pulse Rate [ From Monitor] Respiratory 28 H 14 16 Rate Respiratory Rate [Anterior Bilateral Throughout] Blood Pressure 96/57 97/52 103/49 O2 Sat by Pulse 98 100 99 Oximetry O2 Sat by Pulse Oximetry [ Anterior Bilateral Throughout] 02/12/19 02/12/19 02/12/19 05:00 05:10 05:20 Temperature Pulse Rate 71 71 71 Pulse Rate [ Anterior Bilateral Throughout] Pulse Rate [ From Monitor] Respiratory 29 H 14 15 Rate Respiratory Rate [Anterior Bilateral Throughout] Blood Pressure 109/51 96/57 116/55 O2 Sat by Pulse 97 99 100 Oximetry O2 Sat by Pulse Oximetry [ Anterior Bilateral Throughout] 02/12/19 02/12/19 02/12/19 05:30 05:40 05:50 Temperature Pulse Rate 72 79 70 Pulse Rate [ Anterior Bilateral Throughout] Pulse Rate [ From Monitor] Respiratory 17 11 L 17 Rate Respiratory Rate [Anterior Bilateral Throughout] Blood Pressure 114/53 103/49 114/54 O2 Sat by Pulse 95 99 99 Oximetry O2 Sat by Pulse Oximetry [ Anterior Bilateral Throughout] 02/12/19 02/12/19 02/12/19 06:00 06:10 06:20 Temperature Pulse Rate 71 70 72 Pulse Rate [ Anterior Bilateral Throughout] Pulse Rate [ From Monitor] Respiratory 16 15 16 Rate Respiratory Rate [Anterior Bilateral Throughout] Blood Pressure 111/50 111/50 114/55 O2 Sat by Pulse 96 99 100 Oximetry O2 Sat by Pulse Oximetry [ Anterior Bilateral Throughout] 02/12/19 02/12/19 02/12/19 06:30 06:40 06:50 Temperature Pulse Rate 69 75 70 Pulse Rate [ Anterior Bilateral Throughout] Pulse Rate [ From Monitor] Respiratory 17 16 13 Rate Respiratory Rate [Anterior Bilateral Throughout] Blood Pressure 117/54 117/54 120/61 O2 Sat by Pulse 97 100 99 Oximetry O2 Sat by Pulse Oximetry [ Anterior Bilateral Throughout] 02/12/19 02/12/19 02/12/19 07:00 09:14 09:20 Temperature Pulse Rate 73 73 Pulse Rate [ 72 Anterior Bilateral Throughout] Pulse Rate [ From Monitor] Respiratory 15 15 Rate Respiratory 20 Rate [Anterior Bilateral Throughout] Blood Pressure 100/51 128/53 O2 Sat by Pulse 96 99 Oximetry O2 Sat by Pulse Oximetry [ Anterior Bilateral Throughout] - General Appearance General appearance: well-nourished, obese EENT: ATNC, PERRL Neck: no JVD Respiratory: Present: Decreased Breath Sounds Cardiology: regular, S1S2 Gastrointestinal: normal, normoactive bowel sounds Integumentary: no rash Neurologic: disoriented, other (spontaneous eye opening ) Psychiatric: mood/affect appropriate - Lab 02/10/19 09:28 02/12/19 05:35 Most recent lab results Calcium 8.3 mg/dL (8.4-10.2) L 02/12/19 05:35 Phosphorus 4.10 mg/dL (2.5-4.5) 02/09/19 12:47 Urine Creatinine 162.4 mg/dL (0.1-20.0) H 02/09/19 14:30 Urine Sodium 38 mmol/L 02/09/19 14:30 Urine Total Protein 49 mg/dL (5-11.8) H 02/09/19 14:30 - Imaging Chest x-ray: image reviewed Medications & Allergies - Medications Allergies/Adverse Reactions: Allergies No Known Allergies Allergy (Verified 06/21/16 01:02) Home Medications: Home Medications Medication Instructions Recorded Confirmed Last Taken Type Fluticasone [Flonase] 50 mcg IH Q4-6H PRN 06/21/16 02/10/19 Unknown History Gabapentin [Neurontin] 800 mg PO Q8H 06/21/16 02/10/19 06/19/16 History Glimepiride [Amaryl] 2 mg PO QAM 06/21/16 02/10/19 06/20/16 History Insulin Glargine,Hum.rec.anlog 100 units SUB-Q QHS 06/21/16 02/10/19 06/19/16 History [Lantus Solostar] Lisinopril [Zestril TAB] 40 mg PO QDAY 06/21/16 02/10/19 06/20/16 History Metformin HCl [Metformin HCl ER] 500 mg PO BID 06/21/16 02/10/19 06/20/16 History amLODIPine [Norvasc] 5 mg PO DAILY 06/21/16 02/10/19 06/20/16 History Albuterol Sulfate [Albuterol 0.63% 0.63 mg IH TID PRN #1 box 06/22/16 02/10/19 Unknown Rx NEBS] Azithromycin [Zithromax TAB] 250 mg PO QDAY #6 tablet 06/22/16 02/10/19 Unknown Rx Benzonatate [Tessalon Perles] 100 mg PO Q8HR #30 capsule 06/22/16 02/10/19 Unknown Rx Ipratropium [Atrovent NEB] 0.5 mg IH Q8HRT #1 box 06/22/16 02/10/19 Unknown Rx Nebulizer and Compressor 1 each MC DAILY PRN #1 each 06/22/16 02/10/19 Unknown Rx [Devilbiss Pulmoneb Lt Comp-Neb] Prednisone [predniSONE 10 mg 10 mg PO .TAPER #1 tab.ds.pk 06/22/16 02/10/19 Unknown Rx (6-Day Pack, 21 Tabs)] Active Medications: Generic Name Dose Route Start Last Admin Trade Name Freq PRN Reason Stop Dose Admin Acetaminophen 650 mg 02/09/19 22:59 Tylenol PO Q4H PRN Pain MILD(1-3)/Fever >100.5/ARREDONDO Albumin Human 25 gm 02/11/19 12:02 Alburx 25% (Albumin) IV TREVA PRN Hypotension Albuterol 1.25 mg 02/10/19 01:36 Proventil IH TIDRT PRN Shortness Of Breath Albuterol/Ipratropium 1 ampul 02/10/19 14:00 02/12/19 09:20 Duoneb *Not For Prn Use* IH 1 ampul Q6HRT YISEL Administration Gabapentin 800 mg 02/09/19 23:00 02/12/19 06:42 Gabapentin PO Not Given Q8HR YISEL Heparin Sodium (Porcine) 5,000 unit 02/10/19 22:00 02/11/19 22:51 Heparin SUB-Q 5,000 unit Q12HR YISEL Administration Hydromorphone HCl 0.25 mg 02/09/19 22:59 Dilaudid IV Q3H PRN Pain, Moderate (4-6) Dextrose 1,000 mls @ 40 mls/hr 02/10/19 08:00 02/12/19 02:38 D10w IV 75 mls/hr DIRECT YISEL Administration Cefepime HCl 1 gm in 100 mls @ 200 mls/hr 02/10/19 16:00 02/11/19 15:52 Cefepime/Ns 1 Gm/100 Ml IV 200 mls/hr Q24H YISEL Administration Sodium Chloride 100 mls @ 999 mls/hr 02/11/19 12:02 Nacl 0.9% IV TREVA PRN Hypotension Norepinephrine 4 mg in 250 mls @ 7.5 mls/hr 02/11/19 14:00 02/12/19 06:46 Levophed Drip 4 Mg/Ns 250 Ml IV 14 mcg/min TITR YISEL 52.5 mls/hr Titration Protocol 2 MCG/MIN Vancomycin HCl 1 gm in 250 mls @ 167.007 mls/hr 02/12/19 10:00 Vancomycin/Ns 1 Gm/250 Ml IV 02/12/19 11:29 ONCE ONE Ondansetron HCl 4 mg 02/09/19 22:59 Zofran IV Q8H PRN Nausea And Vomiting Oxycodone/Acetaminophen 1 tab 02/09/19 22:59 Percocet 5/325 PO Q6H PRN Pain, Moderate (4-6) Sodium Chloride 10 ml 02/10/19 10:00 02/11/19 22:51 Sodium Chloride Flush Syringe 10 Ml IV 10 ml BID YISEL Administration Sodium Chloride 10 ml 02/09/19 22:59 02/10/19 06:44 Sodium Chloride Flush Syringe 10 Ml IV 10 ml PRN PRN Administration LINE FLUSH
[2019-02-12] MEDS: HEPARIN 5,000 UNIT/1 ML VIAL SUB-Q SCH ×2 (09:48→22:48)
--- NOTE | 2019-02-12 09:53 | Progress Note ---
Assessment and Plan Assessment and plan: 68F brought in by family for AMS, less responsive CTH neg Renal US neg JESÚS, w severe uremia, Hyperkalemia, Hyponatremia na improved, K now normal -Sp Vas cath , started on urgent HD on 02/10, cont HD -sp calcium, albuterol, and insulin and D50w renal u/s neg hold padmini DM with hypoglycemia, a1c 8.5 received Sulfonylureas 02/09, d10 drip hold Dm meds fever, SIRS, w hypotension and organ dysfunction, Shock (septic vs distributive, vs hypovolemic) empiric abx, UA shows few WBC, highly doubt UTI, no clear source of infection, will cover empirically with antibiotics given how sick the patient is. ID consult fup urine cx, obtain cxr, fup blood cx cont pressors hold Bp meds Acute metabolic encephalopathy Most likely due to uremia, should improve with dialysis, BUN still elevated to the at 60 mentation is much improved today acute hypoxic resp failure Likely due to acute metabolic encephalopathy now off bipap, doing well on NC, Pulmonology consult appreciated syed was dc on 02/11 DVT ppx- heparin sq CCT 33 mins History Interval history: low grade fever overnight Mentation is improved. She is now off BiPAP and on nasal cannula. She is able to answer simple questions, able to verbalize how she feels. Continues to be pressor dependent no more episodes of hypoglycemia, but on d10 drip No cough Hospitalist Physical - Physical exam Narrative exam: General.: Moderate to severe respiratory distress, obese HEENT: Moist mucous membranes, extraocular muscles intact, no lymphadenopathy Neck: supple Cardiac: S1-S2 heard Lungs: clear to auscultation bilaterally Abdomen: soft , nontender, nondistended, bowel sounds positive Extremities: no edema clubbing or cyanosis Skin: no rash or lesions Neurologic: Patient is minimally responsive, non verbal, moves extremities, does not obey commands Psych: Patient is minimally responsive, BiPAP dependent - Constitutional Vitals: Temp Pulse Resp BP Pulse Ox 100.4 F H 72 20 128/53 99 02/12/19 04:00 02/12/19 09:20 02/12/19 09:20 02/12/19 09:14 02/12/19 09:14 General appearance: Present: no acute distress, well-nourished Results - Labs CBC & Chem 7: 02/10/19 09:28 02/12/19 05:35 Labs: Laboratory Last Values WBC 14.7 K/mm3 (4.5-11.0) H 02/10/19 09:28 RBC 2.60 M/mm3 (3.65-5.03) L 02/10/19 09:28 Hgb 8.5 gm/dl (10.1-14.3) L 02/10/19 09:28 Hct 26.9 % (30.3-42.9) L 02/10/19 09:28 MCV 104 fl (79-97) H 02/10/19 09:28 MCH 33 pg (28-32) H 02/10/19 09:28 MCHC 32 % (30-34) 02/10/19 09:28 RDW 16.6 % (13.2-15.2) H 02/10/19 09:28 Plt Count 140 K/mm3 (140-440) 02/10/19 09:28 Lymph % (Auto) Refrigeration Technician 02/10/19 09:28 [place] % (Auto) Refrigeration Technician 02/10/19 09:28 Eos % (Auto) Refrigeration Technician 02/10/19 09:28 Baso % (Auto) Refrigeration Technician 02/10/19 09:28 Lymph # Refrigeration Technician 02/10/19 09:28 [place] # Refrigeration Technician 02/10/19 09:28 Eos # Refrigeration Technician 02/10/19 09:28 Baso # Refrigeration Technician 02/10/19 09:28 Add Manual Diff Complete 02/10/19 09:28 Total Counted 100 02/10/19 09:28 Seg Neutrophils % Refrigeration Technician 02/10/19 09:28 Seg Neuts % (Manual) 96.0 % (40.0-70.0) H 02/10/19 09:28 Band Neutrophils % 0 % 02/10/19 09:28 Lymphocytes % (Manual) 1.0 % (13.4-35.0) L 02/10/19 09:28 Reactive Lymphs % (Man) 0 % 02/10/19 09:28 Monocytes % (Manual) 2.0 % (0.0-7.3) 02/10/19 09:28 Eosinophils % (Manual) 0 % (0.0-4.3) 02/10/19 09:28 Basophils % (Manual) 0 % (0.0-1.8) 02/10/19 09:28 Metamyelocytes % 1.0 % 02/10/19 09:28 Myelocytes % 0 % 02/10/19 09:28 Promyelocytes % 0 % 02/10/19 09:28 Blast Cells % 0 % 02/10/19 09:28 Nucleated RBC % 3.0 % (0.0-0.9) H 02/10/19 09:28 Seg Neutrophils # Refrigeration Technician 02/10/19 09:28 Seg Neutrophils # Man 14.1 K/mm3 (1.8-7.7) H 02/10/19 09:28 Band Neutrophils # 0.0 K/mm3 02/10/19 09:28 Lymphocytes # (Manual) 0.1 K/mm3 (1.2-5.4) L 02/10/19 09:28 Abs React Lymphs (Man) 0.0 K/mm3 02/10/19 09:28 Monocytes # (Manual) 0.3 K/mm3 (0.0-0.8) 02/10/19 09:28 Eosinophils # (Manual) 0.0 K/mm3 (0.0-0.4) 02/10/19 09:28 Basophils # (Manual) 0.0 K/mm3 (0.0-0.1) 02/10/19 09:28 Metamyelocytes # 0.1 K/mm3 02/10/19 09:28 Myelocytes # 0.0 K/mm3 02/10/19 09:28 Promyelocytes # 0.0 K/mm3 02/10/19 09:28 Blast Cells # 0.0 K/mm3 02/10/19 09:28 WBC Morphology Not Reportable 02/10/19 09:28 Hypersegmented Neuts Not Reportable 02/10/19 09:28 Hyposegmented Neuts Not Reportable 02/10/19 09:28 Hypogranular Neuts Not Reportable 02/10/19 09:28 Smudge Cells Not Reportable 02/10/19 09:28 Toxic Granulation Not Reportable 02/10/19 09:28 Toxic Vacuolation Not Reportable 02/10/19 09:28 Dohle Bodies Not Reportable 02/10/19 09:28 Pelger-Huet Anomaly Not Reportable 02/10/19 09:28 Casey Rods Not Reportable 02/10/19 09:28 Platelet Estimate Consistent w auto 02/10/19 09:28 Clumped Platelets Not Reportable 02/10/19 09:28 Plt Clumps, EDTA Not Reportable 02/10/19 09:28 Large Platelets Not Reportable 02/10/19 09:28 Giant Platelets Not Reportable 02/10/19 09:28 Platelet Satelliting Not Reportable 02/10/19 09:28 Plt Morphology Comment Not Reportable 02/10/19 09:28 RBC Morphology Not Reportable 02/10/19 09:28 Dimorphic RBCs Not Reportable 02/10/19 09:28 Polychromasia Few 02/10/19 09:28 Hypochromasia Not Reportable 02/10/19 09:28 Poikilocytosis Not Reportable 02/10/19 09:28 Anisocytosis Not Reportable 02/10/19 09:28 Microcytosis Not Reportable 02/10/19 09:28 Macrocytosis Not Reportable 02/10/19 09:28 Spherocytes Not Reportable 02/10/19 09:28 Pappenheimer Bodies Not Reportable 02/10/19 09:28 Sickle Cells Not Reportable 02/10/19 09:28 Target Cells Few 02/10/19 09:28 Tear Drop Cells Not Reportable 02/10/19 09:28 Ovalocytes Not Reportable 02/10/19 09:28 Helmet Cells Not Reportable 02/10/19 09:28 [place] Bodies Not Reportable 02/10/19 09:28 [place] Rings Not Reportable 02/10/19 09:28 Karina Cells Not Reportable 02/10/19 09:28 Bite Cells Not Reportable 02/10/19 09:28 Crenated Cell Not Reportable 02/10/19 09:28 Elliptocytes Not Reportable 02/10/19 09:28 Acanthocytes (Spur) Not Reportable 02/10/19 09:28 Rouleaux Not Reportable 02/10/19 09:28 Hemoglobin C Crystals Not Reportable 02/10/19 09:28 Schistocytes Not Reportable 02/10/19 09:28 Malaria parasites Not Reportable 02/10/19 09:28 Emanuel Bodies Not Reportable 02/10/19 09:28 Hem Pathologist Commnt No 02/10/19 09:28 PT 17.8 Sec. (12.2-14.9) H 02/09/19 09:16 INR 1.49 (0.87-1.13) H 02/09/19 09:16 APTT 36.0 Sec. (24.2-36.6) 02/09/19 09:16 POC ABG pH 7.304 (7.35-7.45) L 02/11/19 10:35 POC ABG pCO2 47.7 (35-45) H 02/11/19 10:35 POC ABG pO2 142 (80-105) H 02/11/19 10:35 POC ABG HCO3 23.7 (22-26 mml/L) 02/11/19 10:35 POC ABG Total CO2 25 (23-27mmol/L) 02/11/19 10:35 POC ABG O2 Sat 99 02/11/19 10:35 POC ABG Base Excess -3 ((-2) - (+3)mmol/L) 02/11/19 10:35 FiO2 35 % 02/11/19 10:35 Sodium 133 mmol/L (137-145) L 02/12/19 05:35 Potassium 4.3 mmol/L (3.6-5.0) 02/12/19 05:35 Chloride 93.8 mmol/L (98-107) L 02/12/19 05:35 Carbon Dioxide 19 mmol/L (22-30) L 02/12/19 05:35 Anion Gap 25 mmol/L 02/12/19 05:35 BUN 61 mg/dL (7-17) H 02/12/19 05:35 Creatinine 4.5 mg/dL (0.7-1.2) H 02/12/19 05:35 Estimated GFR 12 ml/min 02/12/19 05:35 BUN/Creatinine Ratio 14 % 02/12/19 05:35 Glucose 165 mg/dL (65-100) H 02/12/19 05:35 POC Glucose 170 (70-105) H 02/12/19 05:53 Hemoglobin A1c 8.5 % (4-6) H 02/09/19 23:24 Lactic Acid 1.90 mmol/L (0.7-2.0) 02/11/19 16:15 Calcium 8.3 mg/dL (8.4-10.2) L 02/12/19 05:35 Phosphorus 4.10 mg/dL (2.5-4.5) 02/09/19 12:47 Total Bilirubin 3.10 mg/dL (0.1-1.2) H 02/10/19 06:39 AST 39 units/L (5-40) 02/10/19 06:39 ALT 12 units/L (7-56) 02/10/19 06:39 Alkaline Phosphatase 112 units/L (35-129) 02/10/19 06:39 Ammonia 61.0 umol/L (25-60) H 02/09/19 09:16 Total Creatine Kinase 264 units/L (30-135) H 02/09/19 09:16 CK-MB (CK-2) 2.1 ng/mL (0.0-4.0) 02/09/19 09:16 CK-MB (CK-2) Rel Index 0.7 (0-4) 02/09/19 09:16 Troponin T 0.073 ng/mL (0.00-0.029) H 02/09/19 09:16 Total Protein 8.3 g/dL (6.3-8.2) H 02/10/19 06:39 Albumin 2.4 g/dL (3.9-5) L 02/10/19 06:39 Albumin/Globulin Ratio 0.4 % 02/10/19 06:39 Triglycerides 65 mg/dL (2-149) 02/09/19 09:16 Cholesterol 47 mg/dL (50-199) L 02/09/19 09:16 LDL Cholesterol Direct 13 mg/dL (50-130) L 02/09/19 09:16 HDL Cholesterol 27 mg/dL (40-59) L 02/09/19 09:16 Cholesterol/HDL Ratio 1.74 % 02/09/19 09:16 Procalcitonin 11.74 ng/mL (<0.15) 02/11/19 16:15 TSH 5.570 mlU/mL (0.270-4.200) H 02/09/19 09:16 Free T4 0.85 ng/dL (0.76-1.46) 02/09/19 09:16 Urine Color [place] (Yellow) 02/09/19 14:30 Urine Turbidity Cloudy (Clear) 02/09/19 14:30 Urine pH 5.0 (5.0-7.0) 02/09/19 14:30 Ur Specific [place] 1.015 (1.003-1.030) 02/09/19 14:30 Urine Protein 30 mg/dl mg/dL (Negative) 02/09/19 14:30 Urine Glucose (UA) Neg mg/dL (Negative) 02/09/19 14:30 Urine Ketones Neg mg/dL (Negative) 02/09/19 14:30 Urine Blood Sm (Negative) 02/09/19 14:30 Urine Nitrite Neg (Negative) 02/09/19 14:30 Urine Bilirubin Neg (Negative) 02/09/19 14:30 Urine Urobilinogen < 2.0 mg/dL (<2.0) 02/09/19 14:30 Ur Leukocyte Esterase Mod (Negative) 02/09/19 14:30 Urine WBC (Auto) 32.0 /HPF (0.0-6.0) H 02/09/19 14:30 Urine RBC (Auto) 29.0 /HPF (0.0-6.0) 02/09/19 14:30 U Epithel Cells (Auto) 3.0 /HPF (0-13.0) 02/09/19 14:30 Urine Bacteria (Auto) 3+ /HPF (Negative) 02/09/19 14:30 Urine WBC Clumps 2+ /HPF 02/09/19 14:30 Urine Mucus Few /HPF 02/09/19 14:30 Urine Creatinine 162.4 mg/dL (0.1-20.0) H 02/09/19 14:30 Protein/Creatinin Ratio 0.30 02/09/19 14:30 Urine Sodium 38 mmol/L 02/09/19 14:30 Urine Total Protein 49 mg/dL (5-11.8) H 02/09/19 14:30 Random Vancomycin 11.3 ug/mL (0-40.0) 02/12/19 05:35 Urine Opiates Screen Presumptive negative 02/09/19 14:30 Urine Methadone Screen Presumptive negative 02/09/19 14:30 Ur Barbiturates Screen Presumptive negative 02/09/19 14:30 Ur Phencyclidine Scrn Presumptive negative 02/09/19 14:30 Ur Amphetamines Screen Presumptive negative 02/09/19 14:30 U Benzodiazepines Scrn Presumptive negative 02/09/19 14:30 Urine Cocaine Screen Presumptive negative 02/09/19 14:30 U Marijuana (THC) Screen Presumptive negative 02/09/19 14:30 Drugs of Abuse Note Disclamer 02/09/19 14:30 Plasma/Serum Alcohol < 0.01 % (0-0.07) 02/09/19 09:16 Hepatitis A IgM Ab Non-reactive (NonReactive) 02/09/19 12:47 Hep Bs Antigen Non-reactive (Negative) 02/09/19 12:47 Hep B Core IgM Ab Non-reactive (NonReactive) 02/09/19 12:47 Hepatitis C Antibody Non-reactive (NonReactive) 02/09/19 12:47 Active Medications - Current Medications Current Medications: Generic Name Dose Route Start Last Admin Trade Name Freq PRN Reason Stop Dose Admin Acetaminophen 650 mg 02/09/19 22:59 Tylenol PO Q4H PRN Pain MILD(1-3)/Fever >100.5/ARREDONDO Albumin Human 25 gm 02/11/19 12:02 Alburx 25% (Albumin) IV TREVA PRN Hypotension Albuterol 1.25 mg 02/10/19 01:36 Proventil IH TIDRT PRN Shortness Of Breath Albuterol/Ipratropium 1 ampul 02/10/19 14:00 02/12/19 09:20 Duoneb *Not For Prn Use* IH 1 ampul Q6HRT YISEL Administration Gabapentin 800 mg 02/09/19 23:00 02/12/19 06:42 Gabapentin PO Not Given Q8HR YISEL Heparin Sodium (Porcine) 5,000 unit 02/10/19 22:00 02/12/19 09:48 Heparin SUB-Q 5,000 unit Q12HR YISEL Administration Hydromorphone HCl 0.25 mg 02/09/19 22:59 Dilaudid IV Q3H PRN Pain, Moderate (4-6) Dextrose 1,000 mls @ 40 mls/hr 02/10/19 08:00 02/12/19 02:38 D10w IV 75 mls/hr DIRECT YISEL Administration Cefepime HCl 1 gm in 100 mls @ 200 mls/hr 02/10/19 16:00 02/11/19 15:52 Cefepime/Ns 1 Gm/100 Ml IV 200 mls/hr Q24H YISEL Administration Sodium Chloride 100 mls @ 999 mls/hr 02/11/19 12:02 Nacl 0.9% IV TREVA PRN Hypotension Norepinephrine 4 mg in 250 mls @ 7.5 mls/hr 02/11/19 14:00 02/12/19 09:47 Levophed Drip 4 Mg/Ns 250 Ml IV 14 mcg/min TITR YISEL 52.5 mls/hr Administration Protocol 2 MCG/MIN Vancomycin HCl 1 gm in 250 mls @ 167.007 mls/hr 02/12/19 10:00 02/12/19 09:48 Vancomycin/Ns 1 Gm/250 Ml IV 02/12/19 11:29 167.007 mls/hr ONCE ONE Administration Ondansetron HCl 4 mg 02/09/19 22:59 Zofran IV Q8H PRN Nausea And Vomiting Oxycodone/Acetaminophen 1 tab 02/09/19 22:59 Percocet 5/325 PO Q6H PRN Pain, Moderate (4-6) Sodium Chloride 10 ml 02/10/19 10:00 02/12/19 09:49 Sodium Chloride Flush Syringe 10 Ml IV 10 ml BID YISEL Administration Sodium Chloride 10 ml 02/09/19 22:59 02/10/19 06:44 Sodium Chloride Flush Syringe 10 Ml IV 10 ml PRN PRN Administration LINE FLUSH
[2019-02-12] MEDS ORDERED: VANCOMYCIN/NS 1 GM/250 ML 1 GM/250 ML BAG IV ONE (10:00)
--- NOTE | 2019-02-12 14:07 | Consultation ---
History of Present Illness - Reason for Consult Consult date: 02/12/19 SIRS Requesting physician: JUNE FOSTER - History of Present Illness 68 y/o female with history of morbid obesity, asthma/COPD, CHF admitted from home due to one week of altered mental status and weakness. She was seen outpatient last week and diagnosed with a"lung infection". She was receiving abx at home. Patient is unable to provide a history. In the ED, temp 99.9-100.2, HR 67, R 17, BP 107/49. WBC 14.6. Plat 140. Creat 6.8. K 6. Ammonia 61. A1C 8.5. Ua with 32 wbc and moderate LE. Glucose 54. CXR no consolidations. CT head unremarkable. Blood culture 02/10/2019 and urine culture both negative. In the ED she was found hypotensive and hypoglycemic, started on urgent HD via fem cath. ID consulted for SIRS. Review of Systems: unable to obtain due to AMS Past History Past Medical History: CAD, COPD, hypertension Past Surgical History: No surgical history Social history: no significant social history, lives with family Family history: hypertension Medications and Allergies Allergies Allergy/AdvReac Type Severity Reaction Status Date / Time No Known Allergies Allergy Verified 06/21/16 01:02 Home Medications Medication Instructions Recorded Confirmed Last Taken Type Fluticasone [Flonase] 50 mcg IH Q4-6H PRN 06/21/16 02/10/19 Unknown History Gabapentin [Neurontin] 800 mg PO Q8H 06/21/16 02/10/19 06/19/16 History Glimepiride [Amaryl] 2 mg PO QAM 06/21/16 02/10/19 06/20/16 History Insulin Glargine,Hum.rec.anlog 100 units SUB-Q QHS 06/21/16 02/10/19 06/19/16 History [Lantus Solostar] Lisinopril [Zestril TAB] 40 mg PO QDAY 06/21/16 02/10/19 06/20/16 History Metformin HCl [Metformin HCl ER] 500 mg PO BID 06/21/16 02/10/19 06/20/16 History amLODIPine [Norvasc] 5 mg PO DAILY 06/21/16 02/10/19 06/20/16 History Albuterol Sulfate [Albuterol 0.63% 0.63 mg IH TID PRN #1 box 06/22/16 02/10/19 Unknown Rx NEBS] Azithromycin [Zithromax TAB] 250 mg PO QDAY #6 tablet 06/22/16 02/10/19 Unknown Rx Benzonatate [Tessalon Perles] 100 mg PO Q8HR #30 capsule 06/22/16 02/10/19 Unknown Rx Ipratropium [Atrovent NEB] 0.5 mg IH Q8HRT #1 box 06/22/16 02/10/19 Unknown Rx Nebulizer and Compressor 1 each MC DAILY PRN #1 each 06/22/16 02/10/19 Unknown Rx [Devilbiss Pulmoneb Lt Comp-Neb] Prednisone [predniSONE 10 mg 10 mg PO .TAPER #1 tab.ds.pk 06/22/16 02/10/19 Unknown Rx (6-Day Pack, 21 Tabs)] Active Meds: Active Medications Acetaminophen (Tylenol) 650 mg PO Q4H PRN PRN Reason: Pain MILD(1-3)/Fever >100.5/ARREDONDO Albumin Human (Alburx 25% (Albumin)) 25 gm IV TREVA PRN PRN Reason: Hypotension Albuterol (Proventil) 1.25 mg IH TIDRT PRN PRN Reason: Shortness Of Breath Albuterol/Ipratropium (Duoneb *Not For Prn Use*) 1 ampul IH Q6HRT [facility] Last Admin: 02/12/19 09:20 Dose: 1 ampul Documented by: Famotidine (Pepcid) 10 mg IV QDAY [facility] Gabapentin (Gabapentin) 800 mg PO Q8HR [facility] Last Admin: 02/12/19 06:42 Dose: Not Given Documented by: Heparin Sodium (Porcine) (Heparin) 5,000 unit SUB-Q Q12HR [facility] Last Admin: 02/12/19 09:48 Dose: 5,000 unit Documented by: Hydromorphone HCl (Dilaudid) 0.25 mg IV Q3H PRN PRN Reason: Pain, Moderate (4-6) Dextrose (D10w) 1,000 mls @ 40 mls/hr IV DIRECT [facility] Last Admin: 02/12/19 02:38 Dose: 75 mls/hr Documented by: Cefepime HCl (Cefepime/Ns 1 Gm/100 Ml) 1 gm in 100 mls @ 200 mls/hr IV Q24H [facility] Last Admin: 02/11/19 15:52 Dose: 200 mls/hr Documented by: Sodium Chloride (Nacl 0.9%) 100 mls @ 999 mls/hr IV TREVA PRN PRN Reason: Hypotension Norepinephrine (Levophed Drip 4 Mg/Ns 250 Ml) 4 mg in 250 mls @ 7.5 mls/hr IV TITR YISEL; Protocol Last Admin: 02/12/19 13:28 Dose: 10 mcg/min, 37.5 mls/hr Documented by: Sodium Chloride (Nacl 0.9% 1000 Ml) 1,000 mls @ 75 mls/hr IV DIRECT YISEL Stop: 02/14/19 04:19 Ondansetron HCl (Zofran) 4 mg IV Q8H PRN PRN Reason: Nausea And Vomiting Oxycodone/Acetaminophen (Percocet 5/325) 1 tab PO Q6H PRN PRN Reason: Pain, Moderate (4-6) Sodium Chloride (Sodium Chloride Flush Syringe 10 Ml) 10 ml IV BID [facility] Last Admin: 02/12/19 09:49 Dose: 10 ml Documented by: Sodium Chloride (Sodium Chloride Flush Syringe 10 Ml) 10 ml IV PRN PRN PRN Reason: LINE FLUSH Last Admin: 02/10/19 06:44 Dose: 10 ml Documented by: Physical Examination - Physical Exam Narrative exam: Constitutional: somnolent non cooperative. No acute distress on NC O2 Head, Ears, Nose: Normocephalic, atraumatic. External ears, nose normal Eyes: Conjunctivae/corneas clear. No icterus. No ptosis. Neck: Supple, no meningeal signs Oral: limited Cardiovascular: S1, S2 normal. Respiratory: distant BS GI: Soft, +massive pannus difficult exam Musculoskeletal:+silvio leg edema Skin: No rash or abscess Hem/Lymphatic: No palpable cervical or supraclavicular nodes. No lymphangitis Psych: no agitated Neurological: somnolent not follows commands - Constitutional Vitals: Vital Signs Temp Pulse Resp BP Pulse Ox 99.6 F 76 18 117/53 98 02/12/19 12:00 02/12/19 13:10 02/12/19 13:10 02/12/19 13:10 02/12/19 13:10 Temperature -Last 24 Hours Temperature 99.6 F Temperature 98.7 F Temperature 100.4 F Temperature 100.5 F Temperature 100.5 F Temperature 100.0 F Temperature 100.0 F Temperature 100.3 F Temperature 100.3 F Results - Labs CBC & Chem 7: 02/10/19 09:28 02/12/19 05:35 Labs: Abnormal lab results 02/11/19 02/11/19 02/11/19 Range/Units 14:56 18:16 23:48 POC ABG pH (7.35-7.45) Sodium (137-145) mmol/L Chloride (98-107) mmol/L Carbon Dioxide (22-30) mmol/L BUN (7-17) mg/dL Creatinine (0.7-1.2) mg/dL Glucose (65-100) mg/dL POC Glucose 146 H 136 H 141 H (70-105) Calcium (8.4-10.2) mg/dL 02/12/19 02/12/19 02/12/19 Range/Units 05:35 05:53 11:09 POC ABG pH 7.336 L (7.35-7.45) Sodium 133 L (137-145) mmol/L Chloride 93.8 L (98-107) mmol/L Carbon Dioxide 19 L (22-30) mmol/L BUN 61 H (7-17) mg/dL Creatinine 4.5 H (0.7-1.2) mg/dL Glucose 165 H (65-100) mg/dL POC Glucose 170 H (70-105) Calcium 8.3 L (8.4-10.2) mg/dL 02/12/19 Range/Units 11:56 POC ABG pH (7.35-7.45) Sodium (137-145) mmol/L Chloride (98-107) mmol/L Carbon Dioxide (22-30) mmol/L BUN (7-17) mg/dL Creatinine (0.7-1.2) mg/dL Glucose (65-100) mg/dL POC Glucose 187 H (70-105) Calcium (8.4-10.2) mg/dL Assessment and Plan Cultures: Blood culture 02/10/2019 no growth so far Urine culture 02/09/2019 negative. Assessment: 68 y/o female with history of morbid obesity, asthma/COPD, CHF admitted from home on 02/09/2019 due to one week of altered mental status and weakness, she was treated for a "lung infection" at home started 2 days ago: 1) Severe sepsis with septic shock: seen hypotensive currently on levophed at 10, elevated lactate and leukocytosis; etiology likely UTI and possible pneumonia +/- JESÚS now on HD. 2) Presumed pneumonia: CAP vs aspiration, CXR x 2 negative, patient is morbidly obese, ?influenza, post influenza pneumonia, aspiration. patient started on outpatient abx for a lung infection. 3) UTI: initial Ua with 32 wbc and moderate LE. AMS: likely due to sepsis/hypoglycemia/high ammonia. 4) JESÚS s/p urgent HD Recs: f/u blood cultures check influenza PCR and antigen check Strep pneumonia/legionella antigens continue cefepime renally adjusted continue vancomycin with PK consult add tamiflu until flu r/o add levaquin renally adjusted to cover atypicals if not better CT chest when stable Will follow. Thanks for consultation Becca Jimenez MD Infectious Diseases Structures Assembl[employer] [facility] M [phone]
[2019-02-12] MEDS: FAMOTIDINE 20 MG/2 ML INJ IV SCH (15:20)
[2019-02-12] MEDS: SODIUM CHLORIDE 0.9% 1000 ML 1,000 ML IV SCH (15:21)
[2019-02-12] MEDS: CEFEPIME/NS 1 GM/100 ML 1 GM/100 ML BAG IV SCH (15:23)
[2019-02-12] MEDS: OSELTAMIVIR 75 MG CAP PO SCH ×2 (18:49→23:08)
[2019-02-13] MEDS: IPRATROPIUM/ALBUTEROL SULFATE 3 ML AMPUL.NEB IH SCH ×4 (01:07→21:08)
[2019-02-13] MEDS: SODIUM CHLORIDE 0.9% 1000 ML 1,000 ML IV SCH (03:43)
[2019-02-13] MEDS: GABAPENTIN 400 MG CAP PO SCH ×3 (05:54→21:49)
[2019-02-13 06:00] LABS: Hemoglobin 8.3 gm/dl (10.1-14.3); Mean Corpuscular HGB Conc 32 % (30-34); Mean Corpuscular Volume 102 fl (79-97); Platelet Count 156 K/mm3 (140-440); Red Blood Count 2.54 M/mm3 (3.65-5.03); Red Cell Distribution Width 16.5 % (13.2-15.2)
[2019-02-13 06:20] LABS: Calcium 8.5 mg/dL (8.4-10.2)
[2019-02-13] MEDS: DEXTROSE 10% IN WATER 1,000 ML IV SCH (06:27)
[2019-02-13 07:03] LABS: Band Neutrophils # (Manual) 0.3 K/mm3; Basophils % (Manual) 0 % (0.0-1.8); Eosinophils % (Manual) 0 % (0.0-4.3); Total Cells Counted 100
[2019-02-13 07:04] LABS: Target Cells Few
[2019-02-13 07:05] LABS: Dohle Bodies Few; Platelet Estimate Consistent w Auto
[2019-02-13] MEDS: NORepinephrine/NS 4 MG-250 ML 4 MG/250 ML BAG IV SCH ×2 (08:00→19:00)
--- NOTE | 2019-02-13 09:39 | Progress Note ---
Assessment and Plan Acute hypercapnic respiratory failure Acute toxic-metabolic encephalopathy Severe Sepsis with Shock JESÚS on CKD requiring Hemodialysis Extreme obesity AUDI/OHS - ST evaluation and advance diet - place DHT for feeding if fails - continue to wean vasopressor support for target MAP > 65 mmHg - complete IVF - continue Pepcid for GI prophylaxis - continue to give daytime breaks on BIPAP as tolerated (still acidotic and will watch closely) - increase IPAP to 24 & set rate to 20/min to increase minute ventilation re: respiratory compensation - continue empiric antibiotics for Sepsis and adjust per ID rec's (de-escalate based on clinical and microbiologic data) - continue GI & VTE prophylaxis - continue fall precautions - neurochecks - follow MRI report - continue accuchecks with glycemic control per SSI (While critically ill target blood glucose of 140-180 mg/dL; avoid hypoglycemia) - mobility protocol for pressure ulcer prevention - Monitor hemodynamics closely - Monitor electrolyte profile closely and replete as indicated - resume pertinent chronic home medications as clinically indicated - continue lynch catheter in this critically ill patient, with JESÚS requiring accurate intake and output monitoring - continue other care per attending / other benefits consultant's ..... care plan discussed with brother in room ... re-evaluate in am & prn CONDITION: CRITICAL PROGNOSIS: GUARDED-POOR CODE STATUS: FULL CODE The high probability of a clinically significant, sudden or life-threatening det erioration of the [respiratory, cardiovascular, neurology] system(s) required my full and direct attention, intervention and personal management. The aggregate critical care time was [31] minutes without overlap. Time includes spent on; [x] Data Review and interpretation [x] Patient assessment and monitoring of vital signs [x] Documentation [x] Medication orders and management Subjective Date of service: 02/13/19 Principal diagnosis: Ac. hypercapnic resp. failure; Severe Sepsis with Shock; JESÚS on CKD; AUDI Interval history: Patient is seen today for: Acute hypercapnic respiratory failure; Acute toxic- metabolic encephalopathy; Severe Sepsis with Shock ; JESÚS on CKD requiring Hemodialysis; Extreme obesity; AUDI/OHS Seen and examined at bedside; 24hour events reviewed; nursing and respiratory care staff consulted; no adverse overnight events reported to me; resting peacefully in bed; slept on BIPAP but still acidotic; remains lethargic overall; remains NPO but can re-attempt swallow evaluation; daughter visited Objective Vital Signs - 12hr 02/12/19 02/12/19 02/12/19 21:40 21:45 21:50 Temperature Pulse Rate 82 84 82 Pulse Rate [ Anterior Bilateral Throughout] Pulse Rate [ From Monitor] Respiratory 15 15 Rate Respiratory Rate [Anterior Bilateral Throughout] Blood Pressure 109/53 122/61 122/61 O2 Sat by Pulse 100 100 Oximetry O2 Sat by Pulse Oximetry [ Anterior Bilateral Throughout] 02/12/19 02/12/19 02/12/19 22:00 22:10 22:20 Temperature Pulse Rate 84 84 83 Pulse Rate [ Anterior Bilateral Throughout] Pulse Rate [ From Monitor] Respiratory 16 16 14 Rate Respiratory Rate [Anterior Bilateral Throughout] Blood Pressure 113/55 113/59 118/55 O2 Sat by Pulse 99 99 98 Oximetry O2 Sat by Pulse Oximetry [ Anterior Bilateral Throughout] 02/12/19 02/12/19 02/12/19 22:30 22:40 22:50 Temperature 99.0 F Pulse Rate 83 83 83 Pulse Rate [ Anterior Bilateral Throughout] Pulse Rate [ From Monitor] Respiratory 17 14 16 Rate Respiratory Rate [Anterior Bilateral Throughout] Blood Pressure 118/55 113/54 115/53 O2 Sat by Pulse 99 98 100 Oximetry O2 Sat by Pulse 99 Oximetry [ Anterior Bilateral Throughout] 02/12/19 02/12/19 02/12/19 23:00 23:10 23:20 Temperature 97.9 F Pulse Rate 83 84 85 Pulse Rate [ Anterior Bilateral Throughout] Pulse Rate [ From Monitor] Respiratory 13 14 19 Rate Respiratory Rate [Anterior Bilateral Throughout] Blood Pressure 122/60 112/65 117/60 O2 Sat by Pulse 98 99 98 Oximetry O2 Sat by Pulse Oximetry [ Anterior Bilateral Throughout] 02/12/19 02/12/19 02/12/19 23:30 23:40 23:50 Temperature Pulse Rate 81 81 82 Pulse Rate [ Anterior Bilateral Throughout] Pulse Rate [ From Monitor] Respiratory 13 13 14 Rate Respiratory Rate [Anterior Bilateral Throughout] Blood Pressure 114/50 103/54 113/59 O2 Sat by Pulse 99 98 96 Oximetry O2 Sat by Pulse Oximetry [ Anterior Bilateral Throughout] 02/13/19 02/13/19 02/13/19 00:00 00:10 00:14 Temperature Pulse Rate 81 80 79 Pulse Rate [ Anterior Bilateral Throughout] Pulse Rate [ 80 From Monitor] Respiratory 16 14 13 Rate Respiratory Rate [Anterior Bilateral Throughout] Blood Pressure 113/54 111/56 111/56 O2 Sat by Pulse 97 100 Oximetry O2 Sat by Pulse Oximetry [ Anterior Bilateral Throughout] 02/13/19 02/13/19 02/13/19 00:20 00:30 00:40 Temperature Pulse Rate 79 80 81 Pulse Rate [ Anterior Bilateral Throughout] Pulse Rate [ From Monitor] Respiratory 13 13 16 Rate Respiratory Rate [Anterior Bilateral Throughout] Blood Pressure 98/50 98/50 91/50 O2 Sat by Pulse 98 99 96 Oximetry O2 Sat by Pulse Oximetry [ Anterior Bilateral Throughout] 02/13/19 02/13/19 02/13/19 00:50 01:00 01:10 Temperature Pulse Rate 83 80 83 Pulse Rate [ Anterior Bilateral Throughout] Pulse Rate [ From Monitor] Respiratory 16 15 16 Rate Respiratory Rate [Anterior Bilateral Throughout] Blood Pressure 98/53 110/51 109/55 O2 Sat by Pulse 98 99 Oximetry O2 Sat by Pulse Oximetry [ Anterior Bilateral Throughout] 02/13/19 02/13/19 02/13/19 01:15 01:20 01:30 Temperature Pulse Rate 82 80 Pulse Rate [ 82 Anterior Bilateral Throughout] Pulse Rate [ From Monitor] Respiratory 16 15 Rate Respiratory 20 Rate [Anterior Bilateral Throughout] Blood Pressure 101/53 88/50 O2 Sat by Pulse 97 96 Oximetry O2 Sat by Pulse Oximetry [ Anterior Bilateral Throughout] 02/13/19 02/13/19 02/13/19 01:40 01:50 02:00 Temperature Pulse Rate 81 82 80 Pulse Rate [ Anterior Bilateral Throughout] Pulse Rate [ From Monitor] Respiratory 14 15 16 Rate Respiratory Rate [Anterior Bilateral Throughout] Blood Pressure 97/51 94/48 93/48 O2 Sat by Pulse 97 98 Oximetry O2 Sat by Pulse Oximetry [ Anterior Bilateral Throughout] 02/13/19 02/13/19 02/13/19 02:10 02:20 02:30 Temperature Pulse Rate 86 84 84 Pulse Rate [ Anterior Bilateral Throughout] Pulse Rate [ From Monitor] Respiratory 14 18 17 Rate Respiratory Rate [Anterior Bilateral Throughout] Blood Pressure 95/56 91/58 95/56 O2 Sat by Pulse 97 96 99 Oximetry O2 Sat by Pulse Oximetry [ Anterior Bilateral Throughout] 02/13/19 02/13/19 02/13/19 02:40 02:50 03:00 Temperature Pulse Rate 83 79 82 Pulse Rate [ Anterior Bilateral Throughout] Pulse Rate [ From Monitor] Respiratory 15 13 13 Rate Respiratory Rate [Anterior Bilateral Throughout] Blood Pressure 114/55 115/54 96/56 O2 Sat by Pulse 96 96 Oximetry O2 Sat by Pulse Oximetry [ Anterior Bilateral Throughout] 02/13/19 02/13/19 02/13/19 03:07 03:10 03:20 Temperature 100 F H Pulse Rate 79 76 Pulse Rate [ Anterior Bilateral Throughout] Pulse Rate [ From Monitor] Respiratory 13 15 Rate Respiratory Rate [Anterior Bilateral Throughout] Blood Pressure 104/53 100/45 O2 Sat by Pulse 96 Oximetry O2 Sat by Pulse Oximetry [ Anterior Bilateral Throughout] 02/13/19 02/13/19 02/13/19 03:30 03:40 03:50 Temperature Pulse Rate 80 87 81 Pulse Rate [ Anterior Bilateral Throughout] Pulse Rate [ From Monitor] Respiratory 14 15 14 Rate Respiratory Rate [Anterior Bilateral Throughout] Blood Pressure 104/56 106/57 102/53 O2 Sat by Pulse 99 Oximetry O2 Sat by Pulse Oximetry [ Anterior Bilateral Throughout] 02/13/19 02/13/19 02/13/19 04:00 04:10 04:20 Temperature Pulse Rate 79 79 79 Pulse Rate [ Anterior Bilateral Throughout] Pulse Rate [ 79 From Monitor] Respiratory 15 16 15 Rate Respiratory Rate [Anterior Bilateral Throughout] Blood Pressure 99/48 98/50 97/49 O2 Sat by Pulse 96 98 96 Oximetry O2 Sat by Pulse Oximetry [ Anterior Bilateral Throughout] 02/13/19 02/13/19 02/13/19 04:30 04:40 04:50 Temperature Pulse Rate 80 80 79 Pulse Rate [ Anterior Bilateral Throughout] Pulse Rate [ From Monitor] Respiratory 16 16 17 Rate Respiratory Rate [Anterior Bilateral Throughout] Blood Pressure 96/57 87/54 105/57 O2 Sat by Pulse 95 98 99 Oximetry O2 Sat by Pulse Oximetry [ Anterior Bilateral Throughout] 02/13/19 02/13/19 02/13/19 05:00 05:10 05:20 Temperature Pulse Rate 79 82 79 Pulse Rate [ Anterior Bilateral Throughout] Pulse Rate [ From Monitor] Respiratory 16 17 16 Rate Respiratory Rate [Anterior Bilateral Throughout] Blood Pressure 115/56 117/60 117/59 O2 Sat by Pulse 97 96 96 Oximetry O2 Sat by Pulse Oximetry [ Anterior Bilateral Throughout] 02/13/19 02/13/19 02/13/19 05:30 05:40 05:50 Temperature Pulse Rate 82 81 82 Pulse Rate [ Anterior Bilateral Throughout] Pulse Rate [ From Monitor] Respiratory 16 19 15 Rate Respiratory Rate [Anterior Bilateral Throughout] Blood Pressure 113/56 120/54 121/60 O2 Sat by Pulse 96 96 96 Oximetry O2 Sat by Pulse Oximetry [ Anterior Bilateral Throughout] 02/13/19 02/13/19 02/13/19 06:00 06:10 06:21 Temperature Pulse Rate 80 80 81 Pulse Rate [ Anterior Bilateral Throughout] Pulse Rate [ From Monitor] Respiratory 13 18 10 L Rate Respiratory Rate [Anterior Bilateral Throughout] Blood Pressure 118/55 116/58 116/55 O2 Sat by Pulse 97 99 99 Oximetry O2 Sat by Pulse Oximetry [ Anterior Bilateral Throughout] 02/13/19 02/13/19 02/13/19 06:30 06:40 06:50 Temperature Pulse Rate 81 82 79 Pulse Rate [ Anterior Bilateral Throughout] Pulse Rate [ From Monitor] Respiratory 19 17 14 Rate Respiratory Rate [Anterior Bilateral Throughout] Blood Pressure 123/55 115/54 116/55 O2 Sat by Pulse 97 90 97 Oximetry O2 Sat by Pulse Oximetry [ Anterior Bilateral Throughout] 02/13/19 02/13/19 02/13/19 07:00 07:10 07:20 Temperature Pulse Rate 78 85 81 Pulse Rate [ Anterior Bilateral Throughout] Pulse Rate [ From Monitor] Respiratory 15 18 15 Rate Respiratory Rate [Anterior Bilateral Throughout] Blood Pressure 120/57 115/52 110/56 O2 Sat by Pulse 97 96 96 Oximetry O2 Sat by Pulse Oximetry [ Anterior Bilateral Throughout] 02/13/19 02/13/19 02/13/19 07:22 07:30 07:34 Temperature Pulse Rate 81 Pulse Rate [ 81 Anterior Bilateral Throughout] Pulse Rate [ From Monitor] Respiratory 16 Rate Respiratory 17 Rate [Anterior Bilateral Throughout] Blood Pressure 121/58 O2 Sat by Pulse 96 97 Oximetry O2 Sat by Pulse Oximetry [ Anterior Bilateral Throughout] 02/13/19 02/13/19 02/13/19 07:40 07:50 08:00 Temperature 97.7 F Pulse Rate 83 83 85 Pulse Rate [ Anterior Bilateral Throughout] Pulse Rate [ 89 From Monitor] Respiratory 15 18 19 Rate Respiratory Rate [Anterior Bilateral Throughout] Blood Pressure 114/58 113/58 116/59 O2 Sat by Pulse 96 97 98 Oximetry O2 Sat by Pulse Oximetry [ Anterior Bilateral Throughout] 02/13/19 02/13/19 02/13/19 08:10 08:20 08:41 Temperature 97.7 F Pulse Rate 81 83 Pulse Rate [ Anterior Bilateral Throughout] Pulse Rate [ From Monitor] Respiratory 17 16 Rate Respiratory Rate [Anterior Bilateral Throughout] Blood Pressure 94/45 93/65 O2 Sat by Pulse 97 99 Oximetry O2 Sat by Pulse Oximetry [ Anterior Bilateral Throughout] Constitutional: appears uncomfortable, other (elderly looking morbidly obese AAF, normocephalic on BIPAP with mildly increased respiratory effort at rest) Eyes: non-icteric ENT: oropharynx moist, other (on nnasal cannula) Neck: supple, no lymphadenopathy, no JVD, other (+ large neck circumference) Effort: mildly labored Ascultation: Bilateral: clear, diminished breath sounds Percussion: Bilateral: not dull Cardiovascular: regular rate and rhythm Gastrointestinal: normoactive bowel sounds, soft, non-tender, non-distended, other (Protuberant) Integumentary: rash (stasisi dermatitis) Extremities: no cyanosis, no edema, pulses normal, no ischemia or petechiae Neurologic: non-focal exam (grossly), pupils equal and round, other (Encephalopathic) Psychiatric: mood appropriate, affect normal CBC and BMP: 02/14/19 08:36 02/14/19 05:27 ABG, PT/INR, D-dimer: ABG POC ABG pH 7.336 (7.35-7.45) L 02/12/19 11:09 POC ABG pCO2 43.8 (35-45) 02/12/19 11:09 POC ABG pO2 98 (80-105) 02/12/19 11:09 POC ABG HCO3 23.4 (22-26 mml/L) 02/12/19 11:09 POC ABG Total CO2 25 (23-27mmol/L) 02/12/19 11:09 POC ABG O2 Sat 97 02/12/19 11:09 PT/INR, D-dimer PT 17.8 Sec. (12.2-14.9) H 02/09/19 09:16 INR 1.49 (0.87-1.13) H 02/09/19 09:16 Abnormal lab findings: Abnormal Labs 02/09/19 02/09/19 02/09/19 08:48 09:16 09:16 WBC 14.6 H RBC 2.48 L Hgb 8.2 L Hct 25.4 L MCV 102 H MCH 33 H RDW 16.1 H Seg Neuts % (Manual) 94.0 H Lymphocytes % (Manual) 1.0 L Nucleated RBC % 1.0 H Seg Neutrophils # Man 13.7 H Lymphocytes # (Manual) 0.1 L PT 17.8 H INR 1.49 H POC ABG pH POC ABG pCO2 POC ABG pO2 Sodium Potassium Chloride Carbon Dioxide BUN Creatinine Glucose POC Glucose 51 L Hemoglobin A1c Calcium Total Bilirubin Ammonia Total Creatine Kinase Troponin T Total Protein Albumin Cholesterol LDL Cholesterol Direct HDL Cholesterol TSH Urine WBC (Auto) Urine Creatinine Urine Total Protein 02/09/19 02/09/19 02/09/19 09:16 09:16 09:16 WBC RBC Hgb Hct MCV MCH RDW Seg Neuts % (Manual) Lymphocytes % (Manual) Nucleated RBC % Seg Neutrophils # Man Lymphocytes # (Manual) PT INR POC ABG pH POC ABG pCO2 POC ABG pO2 Sodium 131 L Potassium 6.0 H Chloride 91.4 L Carbon Dioxide 18 L BUN 115 H Creatinine 6.8 H Glucose POC Glucose Hemoglobin A1c Calcium Total Bilirubin 2.90 H Ammonia 61.0 H Total Creatine Kinase 264 H Troponin T 0.073 H Total Protein 8.8 H Albumin 2.6 L Cholesterol 47 L LDL Cholesterol Direct 13 L HDL Cholesterol 27 L TSH 5.570 H Urine WBC (Auto) Urine Creatinine Urine Total Protein 02/09/19 02/09/19 02/09/19 12:47 14:30 14:30 WBC RBC Hgb Hct MCV MCH RDW Seg Neuts % (Manual) Lymphocytes % (Manual) Nucleated RBC % Seg Neutrophils # Man Lymphocytes # (Manual) PT INR POC ABG pH POC ABG pCO2 POC ABG pO2 Sodium 131 L Potassium 5.6 H Chloride 91.8 L Carbon Dioxide 17 L BUN 117 H Creatinine 6.5 H Glucose 50 L POC Glucose Hemoglobin A1c Calcium Total Bilirubin Ammonia Total Creatine Kinase Troponin T Total Protein Albumin Cholesterol LDL Cholesterol Direct HDL Cholesterol TSH Urine WBC (Auto) 32.0 H Urine Creatinine 162.4 H Urine Total Protein 49 H 02/09/19 02/09/19 02/09/19 15:05 15:39 19:03 WBC RBC Hgb Hct MCV MCH RDW Seg Neuts % (Manual) Lymphocytes % (Manual) Nucleated RBC % Seg Neutrophils # Man Lymphocytes # (Manual) PT INR POC ABG pH POC ABG pCO2 POC ABG pO2 Sodium 131 L Potassium 5.7 H Chloride 93.6 L Carbon Dioxide 19 L BUN 111 H Creatinine 7.0 H Glucose 48 L POC Glucose < 40 L 112 H Hemoglobin A1c Calcium Total Bilirubin Ammonia Total Creatine Kinase Troponin T Total Protein Albumin Cholesterol LDL Cholesterol Direct HDL Cholesterol TSH Urine WBC (Auto) Urine Creatinine Urine Total Protein 02/09/19 02/09/19 02/10/19 21:59 23:24 03:06 WBC RBC Hgb Hct MCV MCH RDW Seg Neuts % (Manual) Lymphocytes % (Manual) Nucleated RBC % Seg Neutrophils # Man Lymphocytes # (Manual) PT INR POC ABG pH POC ABG pCO2 POC ABG pO2 Sodium Potassium Chloride Carbon Dioxide BUN Creatinine Glucose POC Glucose 61 L < 40 L Hemoglobin A1c 8.5 H Calcium Total Bilirubin Ammonia Total Creatine Kinase Troponin T Total Protein Albumin Cholesterol LDL Cholesterol Direct HDL Cholesterol TSH Urine WBC (Auto) Urine Creatinine Urine Total Protein 02/10/19 02/10/19 02/10/19 06:36 06:39 07:21 WBC RBC Hgb Hct MCV MCH RDW Seg Neuts % (Manual) Lymphocytes % (Manual) Nucleated RBC % Seg Neutrophils # Man Lymphocytes # (Manual) PT INR POC ABG pH POC ABG pCO2 POC ABG pO2 Sodium 130 L Potassium 6.2 H* Chloride 89.4 L Carbon Dioxide 17 L BUN 124 H Creatinine 6.8 H Glucose 120 H POC Glucose 60 L 120 H Hemoglobin A1c Calcium 8.3 L Total Bilirubin 3.10 H Ammonia Total Creatine Kinase Troponin T Total Protein 8.3 H Albumin 2.4 L Cholesterol LDL Cholesterol Direct HDL Cholesterol TSH Urine WBC (Auto) Urine Creatinine Urine Total Protein 02/10/19 02/10/19 02/10/19 09:28 10:20 10:32 WBC 14.7 H RBC 2.60 L Hgb 8.5 L Hct 26.9 L MCV 104 H MCH 33 H RDW 16.6 H Seg Neuts % (Manual) 96.0 H Lymphocytes % (Manual) 1.0 L Nucleated RBC % 3.0 H Seg Neutrophils # Man 14.1 H Lymphocytes # (Manual) 0.1 L PT INR POC ABG pH POC ABG pCO2 POC ABG pO2 Sodium Potassium 5.9 H Chloride Carbon Dioxide BUN Creatinine Glucose POC Glucose 64 L Hemoglobin A1c Calcium Total Bilirubin Ammonia Total Creatine Kinase Troponin T Total Protein Albumin Cholesterol LDL Cholesterol Direct HDL Cholesterol TSH Urine WBC (Auto) Urine Creatinine Urine Total Protein 02/10/19 02/10/19 02/11/19 14:15 20:06 04:48 WBC RBC Hgb Hct MCV MCH RDW Seg Neuts % (Manual) Lymphocytes % (Manual) Nucleated RBC % Seg Neutrophils # Man Lymphocytes # (Manual) PT INR POC ABG pH POC ABG pCO2 POC ABG pO2 Sodium 130 L Potassium Chloride 91.2 L Carbon Dioxide 20 L BUN 81 H Creatinine 5.7 H Glucose POC Glucose 67 L 113 H Hemoglobin A1c Calcium 8.1 L Total Bilirubin Ammonia Total Creatine Kinase Troponin T Total Protein Albumin Cholesterol LDL Cholesterol Direct HDL Cholesterol TSH Urine WBC (Auto) Urine Creatinine Urine Total Protein 02/11/19 02/11/19 02/11/19 07:56 10:35 11:46 WBC RBC Hgb Hct MCV MCH RDW Seg Neuts % (Manual) Lymphocytes % (Manual) Nucleated RBC % Seg Neutrophils # Man Lymphocytes # (Manual) PT INR POC ABG pH 7.304 L POC ABG pCO2 47.7 H POC ABG pO2 142 H Sodium Potassium Chloride Carbon Dioxide BUN Creatinine Glucose POC Glucose 124 H 128 H Hemoglobin A1c Calcium Total Bilirubin Ammonia Total Creatine Kinase Troponin T Total Protein Albumin Cholesterol LDL Cholesterol Direct HDL Cholesterol TSH Urine WBC (Auto) Urine Creatinine Urine Total Protein 02/11/19 02/11/19 02/11/19 14:56 18:16 23:48 WBC RBC Hgb Hct MCV MCH RDW Seg Neuts % (Manual) Lymphocytes % (Manual) Nucleated RBC % Seg Neutrophils # Man Lymphocytes # (Manual) PT INR POC ABG pH POC ABG pCO2 POC ABG pO2 Sodium Potassium Chloride Carbon Dioxide BUN Creatinine Glucose POC Glucose 146 H 136 H 141 H Hemoglobin A1c Calcium Total Bilirubin Ammonia Total Creatine Kinase Troponin T Total Protein Albumin Cholesterol LDL Cholesterol Direct HDL Cholesterol TSH Urine WBC (Auto) Urine Creatinine Urine Total Protein 02/12/19 02/12/19 02/12/19 05:35 05:53 11:09 WBC RBC Hgb Hct MCV MCH RDW Seg Neuts % (Manual) Lymphocytes % (Manual) Nucleated RBC % Seg Neutrophils # Man Lymphocytes # (Manual) PT INR POC ABG pH 7.336 L POC ABG pCO2 POC ABG pO2 Sodium 133 L Potassium Chloride 93.8 L Carbon Dioxide 19 L BUN 61 H Creatinine 4.5 H Glucose 165 H POC Glucose 170 H Hemoglobin A1c Calcium 8.3 L Total Bilirubin Ammonia Total Creatine Kinase Troponin T Total Protein Albumin Cholesterol LDL Cholesterol Direct HDL Cholesterol TSH Urine WBC (Auto) Urine Creatinine Urine Total Protein 02/12/19 02/12/19 02/12/19 11:56 18:05 23:43 WBC RBC Hgb Hct MCV MCH RDW Seg Neuts % (Manual) Lymphocytes % (Manual) Nucleated RBC % Seg Neutrophils # Man Lymphocytes # (Manual) PT INR POC ABG pH POC ABG pCO2 POC ABG pO2 Sodium Potassium Chloride Carbon Dioxide BUN Creatinine Glucose POC Glucose 187 H 207 H 236 H Hemoglobin A1c Calcium Total Bilirubin Ammonia Total Creatine Kinase Troponin T Total Protein Albumin Cholesterol LDL Cholesterol Direct HDL Cholesterol TSH Urine WBC (Auto) Urine Creatinine Urine Total Protein 02/13/19 02/13/19 02/13/19 05:12 05:12 05:31 WBC 32.4 H RBC 2.54 L Hgb 8.3 L Hct 26.0 L MCV 102 H MCH 33 H RDW 16.5 H Seg Neuts % (Manual) 92.0 H Lymphocytes % (Manual) 3.0 L Nucleated RBC % 1.0 H Seg Neutrophils # Man 29.8 H Lymphocytes # (Manual) 1.0 L PT INR POC ABG pH POC ABG pCO2 POC ABG pO2 Sodium Potassium Chloride 97.9 L Carbon Dioxide 19 L BUN 44 H Creatinine 3.1 H Glucose 252 H POC Glucose 237 H Hemoglobin A1c Calcium Total Bilirubin Ammonia Total Creatine Kinase Troponin T Total Protein Albumin Cholesterol LDL Cholesterol Direct HDL Cholesterol TSH Urine WBC (Auto) Urine Creatinine Urine Total Protein Chest x-ray: other (none today) Allied health notes reviewed: nursing
--- NOTE | 2019-02-13 09:51 | XRay Report ---
CHEST 1 VIEW 02/13/2019 8:50 AM INDICATION / CLINICAL INFORMATION: ronald. COMPARISON: 02/11/2019. FINDINGS: SUPPORT DEVICES: None. HEART / MEDIASTINUM: Stable mild cardiomegaly. LUNGS / PLEURA: Stable low lung volumes without focal consolidation or significant effusion. No pneum othorax. ADDITIONAL FINDINGS: No significant additional findings. IMPRESSION: 1. No adverse change from the prior exam. Signer Name: Laith Land MD Signed: 02/13/2019 9:47 AM Workstation Name: [id number]
[2019-02-13] MEDS: FAMOTIDINE 20 MG/2 ML INJ IV SCH (10:00)
[2019-02-13] MEDS ORDERED: OSELTAMIVIR PHOSPHATE 30 MG/5 ML ORALSYR PO SCH (10:00)
[2019-02-13] MEDS: HEPARIN 5,000 UNIT/1 ML VIAL SUB-Q SCH ×2 (10:00→21:49)
--- NOTE | 2019-02-13 10:08 | Progress Note ---
Assessment and Plan Cultures: Blood culture 02/10/2019 no growth so far Urine culture 02/09/2019 negative. Assessment: 68 y/o female with history of morbid obesity, asthma/COPD, CHF admitted from home on 02/09/2019 due to one week of altered mental status and weakness, she was treated for a "lung infection" at home started 2 days ago: 1) Severe sepsis with septic shock: currently on levophed at 6 from 10, wors ening leukocytosis; etiology likely UTI and possible pneumonia +/- JESÚS now on HD. 2) Presumed pneumonia: CAP vs aspiration, CXR x 2 negative, patient is morbidly obese, ? aspiration. patient started on outpatient abx for a lung infection. Influenza Ag/ PCR negative. repeat CXR x 3 no consolidation 3) UTI: initial Ua with 32 wbc and moderate LE. Urine cx no growth 4) AMS: likely due to sepsis/hypoglycemia/high ammonia. Improving 5) JESÚS s/p urgent HD - improving Recs: titrate down levophed - MAP=[address] w/o contrast eval for pneumonia, staff to check on cut off for weight in the scanner f/u blood cultures f/u Strep pneumonia/legionella antigens continue cefepime renally adjusted continue vancomycin with PK consult - stop soon once off pressors continue levaquin renally adjusted to cover atypicals stop tamiflu - flu negative Will follow. Thanks for consultation Becca Jimenez MD Infectious Diseases [employer] [facility] ([facility]) M [phone] O [phone] Subjective Date of service: 02/13/19 Principal diagnosis: Ac. hypercapnic resp. failure; Severe Sepsis with Shock; JESÚS on CKD; AUDI Interval history: More alert, follows commands, talking on NC O2, tmax 100. Objective - Exam Narrative Exam: Constitutional: alert talking. No acute distress on NC O2 morbidly obese Head, Ears, Nose: Normocephalic, atraumatic. External ears, nose normal Eyes: Conjunctivae/corneas clear. No icterus. No ptosis. Neck: Supple, no meningeal signs Oral: limited Cardiovascular: S1, S2 normal. Respiratory: distant BS GI: Soft, +massive pannus difficult exam Musculoskeletal:+silvio leg edema Skin: No rash or abscess Hem/Lymphatic: No palpable cervical or supraclavicular nodes. No lymphangitis Psych: no agitated Neurological: alert follows commands +right fem cath - Constitutional Vitals: Vital Signs Temp Pulse Resp BP Pulse Ox 97.7 F 83 16 93/65 99 02/13/19 08:41 02/13/19 08:20 02/13/19 08:20 02/13/19 08:20 02/13/19 08:20 Temperature -Last 24 Hours Temperature 97.7 F Temperature 97.7 F Temperature 100 F Temperature 97.9 F Temperature 99.0 F Temperature 97.5 F Temperature 99.7 F Temperature 99.6 F Temperature 99.6 F - Labs CBC & Chem 7: 02/13/19 05:12 02/13/19 05:12 Labs: Abnormal lab results 02/12/19 02/12/19 02/12/19 Range/Units 11:09 11:56 18:05 WBC (4.5-11.0) K/mm3 RBC (3.65-5.03) M/mm3 Hgb (10.1-14.3) gm/dl Hct (30.3-42.9) % MCV (79-97) fl MCH (28-32) pg RDW (13.2-15.2) % Seg Neuts % (Manual) (40.0-70.0) % Lymphocytes % (Manual) (13.4-35.0) % Nucleated RBC % (0.0-0.9) % Seg Neutrophils # Man (1.8-7.7) K/mm3 Lymphocytes # (Manual) (1.2-5.4) K/mm3 POC ABG pH 7.336 L (7.35-7.45) Chloride (98-107) mmol/L Carbon Dioxide (22-30) mmol/L BUN (7-17) mg/dL Creatinine (0.7-1.2) mg/dL Glucose (65-100) mg/dL POC Glucose 187 H 207 H (70-105) 02/12/19 02/13/19 02/13/19 Range/Units 23:43 05:12 05:12 WBC 32.4 H (4.5-11.0) K/mm3 RBC 2.54 L (3.65-5.03) M/mm3 Hgb 8.3 L (10.1-14.3) gm/dl Hct 26.0 L (30.3-42.9) % MCV 102 H (79-97) fl MCH 33 H (28-32) pg RDW 16.5 H (13.2-15.2) % Seg Neuts % (Manual) 92.0 H (40.0-70.0) % Lymphocytes % (Manual) 3.0 L (13.4-35.0) % Nucleated RBC % 1.0 H (0.0-0.9) % Seg Neutrophils # Man 29.8 H (1.8-7.7) K/mm3 Lymphocytes # (Manual) 1.0 L (1.2-5.4) K/mm3 POC ABG pH (7.35-7.45) Chloride 97.9 L (98-107) mmol/L Carbon Dioxide 19 L (22-30) mmol/L BUN 44 H (7-17) mg/dL Creatinine 3.1 H (0.7-1.2) mg/dL Glucose 252 H (65-100) mg/dL POC Glucose 236 H (70-105) 02/13/19 02/13/19 Range/Units 05:31 09:52 WBC (4.5-11.0) K/mm3 RBC (3.65-5.03) M/mm3 Hgb (10.1-14.3) gm/dl Hct (30.3-42.9) % MCV (79-97) fl MCH (28-32) pg RDW (13.2-15.2) % Seg Neuts % (Manual) (40.0-70.0) % Lymphocytes % (Manual) (13.4-35.0) % Nucleated RBC % (0.0-0.9) % Seg Neutrophils # Man (1.8-7.7) K/mm3 Lymphocytes # (Manual) (1.2-5.4) K/mm3 POC ABG pH 7.337 L (7.35-7.45) Chloride (98-107) mmol/L Carbon Dioxide (22-30) mmol/L BUN (7-17) mg/dL Creatinine (0.7-1.2) mg/dL Glucose (65-100) mg/dL POC Glucose 237 H (70-105)
--- NOTE | 2019-02-13 11:31 | Progress Note ---
Assessment and Plan Assessment and plan: Patient is a 68 yo AA woman with a history of morbid obesity, asthma/COPD, DM type 2, hypertension, CHF, advance Dementia, CKD 4 and AUDI on cpap, who presented from home to [facility] ED on 02/09/2019 due to altered mental status and weakness. She was treated for a "lung infection" at home 2 days ago prior to arrival. * CTH neg * Renal US neg * Cultures: Blood culture 02/10/2019 no growth so far and Urine culture 02/09/2019 negative. * CT chest without contrast IMPRESSION: Low lung volumes with patchy bibasilar density that appears most consistent with subsegmental atelectasis. No convincing evidence of pneumonia. No pericardial or pleural effusion. JESÚS/CKD 4, suspected due to ATN -Sp Vas cath , started on urgent HD on 02/10, cont HD per [employer] -sp calcium, albuterol, and insulin and D50w renal u/s neg hold padmini DM with hypoglycemia episodes, a1c 8.5 received Sulfonylureas 02/09, d10 drip hold Dm meds continue SSI Severe sepsis with septic shock, poa: currently on levophed at 6 etiology likely UTI ID is following continue IV abx discontinue tamiflu because flu negative try to wean off Vasopressor, given more fluid, complex decision as makes volume overload difficult Acute metabolic encephalopathy Most likely due to uremia, should improve with dialysis, BUN still elevated to the at 60 mentation is much improved today Acute hypoxic resp failure most likely due to volume overload, treated by Ultrafiltration with HD now off bipap, doing well on NC, Pulmonology consult appreciated syed was dc on 02/11 DVT ppx- heparin sq CCT 32 mins History Interval history: Patient was seen and examined. Follow-up on current diagnosis Respiratory failure. No overnight events reported to me. Patient denies any chest pain, shortness breath. Imaging, nursing note, chart, labs and old chart reviewed. Discussed with patient. Hospitalist Physical - Physical exam Narrative exam: Gen: morbid obese, bmi 62.1, NAD, Awake, Alert, Orientated x 1 HEENT: NCAT, EOMI, PERRL, OP Clear Neck: supple, no adenopathy, no thyromegaly, no JVD CVS/Heart: RRR, normal S1S2, pulses present bilaterally Chest/Lungs: diminished bs bilateral, Symmetrical chest expansion, adequate air entry bilaterally GI/Abdomen: soft, NTND, good bowel sounds, no guarding or rebound /Bladder: no suprapubic tenderness, no CVA or paraspinal tenderness Extermity/Skin: no c/c/e, no obvious rash MSK: FROM x 4 Neuro: CN 2-12 grossly intact, no new focal deficits Psych: calm but confused - Constitutional Vitals: Temp Pulse Resp BP Pulse Ox 97.7 F 83 18 121/53 97 02/13/19 08:41 02/13/19 10:20 02/13/19 10:20 02/13/19 10:20 02/13/19 10:20 General appearance: Present: no acute distress, well-nourished Results - Labs CBC & Chem 7: 02/13/19 05:12 02/13/19 05:12 Labs: Laboratory Last Values WBC 32.4 K/mm3 (4.5-11.0) H 02/13/19 05:12 RBC 2.54 M/mm3 (3.65-5.03) L 02/13/19 05:12 Hgb 8.3 gm/dl (10.1-14.3) L 02/13/19 05:12 Hct 26.0 % (30.3-42.9) L 02/13/19 05:12 MCV 102 fl (79-97) H 02/13/19 05:12 MCH 33 pg (28-32) H 02/13/19 05:12 MCHC 32 % (30-34) 02/13/19 05:12 RDW 16.5 % (13.2-15.2) H 02/13/19 05:12 Plt Count 156 K/mm3 (140-440) 02/13/19 05:12 Lymph % (Auto) Racket Stringer 02/10/19 09:28 [place] % (Auto) Racket Stringer 02/10/19 09:28 Eos % (Auto) Racket Stringer 02/10/19 09:28 Baso % (Auto) Racket Stringer 02/10/19 09:28 Lymph # Racket Stringer 02/10/19 09:28 [place] # Racket Stringer 02/10/19 09:28 Eos # Racket Stringer 02/10/19 09:28 Baso # Racket Stringer 02/10/19 09:28 Add Manual Diff Complete 02/13/19 05:12 Total Counted 100 02/13/19 05:12 Seg Neutrophils % Racket Stringer 02/13/19 05:12 Seg Neuts % (Manual) 92.0 % (40.0-70.0) H 02/13/19 05:12 Band Neutrophils % 1.0 % 02/13/19 05:12 Lymphocytes % (Manual) 3.0 % (13.4-35.0) L 02/13/19 05:12 Reactive Lymphs % (Man) 0 % 02/13/19 05:12 Monocytes % (Manual) 1.0 % (0.0-7.3) 02/13/19 05:12 Eosinophils % (Manual) 0 % (0.0-4.3) 02/13/19 05:12 Basophils % (Manual) 0 % (0.0-1.8) 02/13/19 05:12 Metamyelocytes % 3.0 % 02/13/19 05:12 Myelocytes % 0 % 02/13/19 05:12 Promyelocytes % 0 % 02/13/19 05:12 Blast Cells % 0 % 02/13/19 05:12 Nucleated RBC % 1.0 % (0.0-0.9) H 02/13/19 05:12 Seg Neutrophils # Racket Stringer 02/10/19 09:28 Seg Neutrophils # Man 29.8 K/mm3 (1.8-7.7) H 02/13/19 05:12 Band Neutrophils # 0.3 K/mm3 02/13/19 05:12 Lymphocytes # (Manual) 1.0 K/mm3 (1.2-5.4) L 02/13/19 05:12 Abs React Lymphs (Man) 0.0 K/mm3 02/13/19 05:12 Monocytes # (Manual) 0.3 K/mm3 (0.0-0.8) 02/13/19 05:12 Eosinophils # (Manual) 0.0 K/mm3 (0.0-0.4) 02/13/19 05:12 Basophils # (Manual) 0.0 K/mm3 (0.0-0.1) 02/13/19 05:12 Metamyelocytes # 1.0 K/mm3 02/13/19 05:12 Myelocytes # 0.0 K/mm3 02/13/19 05:12 Promyelocytes # 0.0 K/mm3 02/13/19 05:12 Blast Cells # 0.0 K/mm3 02/13/19 05:12 WBC Morphology Not Reportable 02/13/19 05:12 Hypersegmented Neuts Not Reportable 02/13/19 05:12 Hyposegmented Neuts Not Reportable 02/13/19 05:12 Hypogranular Neuts Not Reportable 02/13/19 05:12 Smudge Cells Not Reportable 02/13/19 05:12 Toxic Granulation Not Reportable 02/13/19 05:12 Toxic Vacuolation Not Reportable 02/13/19 05:12 Dohle Bodies Few 02/13/19 05:12 Pelger-Huet Anomaly Not Reportable 02/13/19 05:12 Casey Rods Not Reportable 02/13/19 05:12 Platelet Estimate Consistent w auto 02/13/19 05:12 Clumped Platelets Not Reportable 02/13/19 05:12 Plt Clumps, EDTA Not Reportable 02/13/19 05:12 Large Platelets Not Reportable 02/13/19 05:12 Giant Platelets Not Reportable 02/13/19 05:12 Platelet Satelliting Not Reportable 02/13/19 05:12 Plt Morphology Comment Not Reportable 02/13/19 05:12 RBC Morphology Not Reportable 02/13/19 05:12 Dimorphic RBCs Not Reportable 02/13/19 05:12 Polychromasia Rare 02/13/19 05:12 Hypochromasia Not Reportable 02/13/19 05:12 Poikilocytosis Not Reportable 02/13/19 05:12 Anisocytosis Not Reportable 02/13/19 05:12 Microcytosis Not Reportable 02/13/19 05:12 Macrocytosis Not Reportable 02/13/19 05:12 Spherocytes Not Reportable 02/13/19 05:12 Pappenheimer Bodies Not Reportable 02/13/19 05:12 Sickle Cells Not Reportable 02/13/19 05:12 Target Cells Few 02/13/19 05:12 Tear Drop Cells Not Reportable 02/13/19 05:12 Ovalocytes Not Reportable 02/13/19 05:12 Helmet Cells Not Reportable 02/13/19 05:12 Aguayo-Opdyke Bodies Not Reportable 02/13/19 05:12 [place] Rings Not Reportable 02/13/19 05:12 [place] Cells Not Reportable 02/13/19 05:12 Bite Cells Not Reportable 02/13/19 05:12 Crenated Cell Not Reportable 02/13/19 05:12 Elliptocytes Not Reportable 02/13/19 05:12 Acanthocytes (Spur) Not Reportable 02/13/19 05:12 Rouleaux Not Reportable 02/13/19 05:12 Hemoglobin C Crystals Not Reportable 02/13/19 05:12 Schistocytes Not Reportable 02/13/19 05:12 Malaria parasites Not Reportable 02/13/19 05:12 Emanuel Bodies Not Reportable 02/13/19 05:12 Hem Pathologist Commnt No 02/13/19 05:12 PT 17.8 Sec. (12.2-14.9) H 02/09/19 09:16 INR 1.49 (0.87-1.13) H 02/09/19 09:16 APTT 36.0 Sec. (24.2-36.6) 02/09/19 09:16 POC ABG pH 7.337 (7.35-7.45) L 02/13/19 09:52 POC ABG pCO2 43.2 (35-45) 02/13/19 09:52 POC ABG pO2 100 (80-105) 02/13/19 09:52 POC ABG HCO3 23.1 (22-26 mml/L) 02/13/19 09:52 POC ABG Total CO2 24 (23-27mmol/L) 02/13/19 09:52 POC ABG O2 Sat 97 02/13/19 09:52 POC ABG Base Excess -3 ((-2) - (+3)mmol/L) 02/13/19 09:52 FiO2 32 % 02/13/19 09:52 Sodium 138 mmol/L (137-145) 02/13/19 05:12 Potassium 3.8 mmol/L (3.6-5.0) 02/13/19 05:12 Chloride 97.9 mmol/L (98-107) L 02/13/19 05:12 Carbon Dioxide 19 mmol/L (22-30) L 02/13/19 05:12 Anion Gap 25 mmol/L 02/13/19 05:12 BUN 44 mg/dL (7-17) H 02/13/19 05:12 Creatinine 3.1 mg/dL (0.7-1.2) H 02/13/19 05:12 Estimated GFR 18 ml/min 02/13/19 05:12 BUN/Creatinine Ratio 14 % 02/13/19 05:12 Glucose 252 mg/dL (65-100) H 02/13/19 05:12 POC Glucose 237 (70-105) H 02/13/19 05:31 Hemoglobin A1c 8.5 % (4-6) H 02/09/19 23:24 Lactic Acid 1.90 mmol/L (0.7-2.0) 02/11/19 16:15 Calcium 8.5 mg/dL (8.4-10.2) 02/13/19 05:12 Phosphorus 4.10 mg/dL (2.5-4.5) 02/09/19 12:47 Total Bilirubin 3.10 mg/dL (0.1-1.2) H 02/10/19 06:39 AST 39 units/L (5-40) 02/10/19 06:39 ALT 12 units/L (7-56) 02/10/19 06:39 Alkaline Phosphatase 112 units/L (35-129) 02/10/19 06:39 Ammonia 61.0 umol/L (25-60) H 02/09/19 09:16 Total Creatine Kinase 264 units/L (30-135) H 02/09/19 09:16 CK-MB (CK-2) 2.1 ng/mL (0.0-4.0) 02/09/19 09:16 CK-MB (CK-2) Rel Index 0.7 (0-4) 02/09/19 09:16 Troponin T 0.073 ng/mL (0.00-0.029) H 02/09/19 09:16 Total Protein 8.3 g/dL (6.3-8.2) H 02/10/19 06:39 Albumin 2.4 g/dL (3.9-5) L 02/10/19 06:39 Albumin/Globulin Ratio 0.4 % 02/10/19 06:39 Triglycerides 65 mg/dL (2-149) 02/09/19 09:16 Cholesterol 47 mg/dL (50-199) L 02/09/19 09:16 LDL Cholesterol Direct 13 mg/dL (50-130) L 02/09/19 09:16 HDL Cholesterol 27 mg/dL (40-59) L 02/09/19 09:16 Cholesterol/HDL Ratio 1.74 % 02/09/19 09:16 Procalcitonin 11.74 ng/mL (<0.15) 02/11/19 16:15 TSH 5.570 mlU/mL (0.270-4.200) H 02/09/19 09:16 Free T4 0.85 ng/dL (0.76-1.46) 02/09/19 09:16 Urine Color Shamika (Yellow) 02/09/19 14:30 Urine Turbidity Cloudy (Clear) 02/09/19 14:30 Urine pH 5.0 (5.0-7.0) 02/09/19 14:30 Ur Specific Wilson 1.015 (1.003-1.030) 02/09/19 14:30 Urine Protein 30 mg/dl mg/dL (Negative) 02/09/19 14:30 Urine Glucose (UA) Neg mg/dL (Negative) 02/09/19 14:30 Urine Ketones Neg mg/dL (Negative) 02/09/19 14:30 Urine Blood Sm (Negative) 02/09/19 14:30 Urine Nitrite Neg (Negative) 02/09/19 14:30 Urine Bilirubin Neg (Negative) 02/09/19 14:30 Urine Urobilinogen < 2.0 mg/dL (<2.0) 02/09/19 14:30 Ur Leukocyte Esterase Mod (Negative) 02/09/19 14:30 Urine WBC (Auto) 32.0 /HPF (0.0-6.0) H 02/09/19 14:30 Urine RBC (Auto) 29.0 /HPF (0.0-6.0) 02/09/19 14:30 U Epithel Cells (Auto) 3.0 /HPF (0-13.0) 02/09/19 14:30 Urine Bacteria (Auto) 3+ /HPF (Negative) 02/09/19 14:30 Urine WBC Clumps 2+ /HPF 02/09/19 14:30 Urine Mucus Few /HPF 02/09/19 14:30 Urine Creatinine 162.4 mg/dL (0.1-20.0) H 02/09/19 14:30 Protein/Creatinin Ratio 0.30 02/09/19 14:30 Urine Sodium 38 mmol/L 02/09/19 14:30 Urine Total Protein 49 mg/dL (5-11.8) H 02/09/19 14:30 Random Vancomycin 11.3 ug/mL (0-40.0) 02/12/19 05:35 Urine Opiates Screen Presumptive negative 02/09/19 14:30 Urine Methadone Screen Presumptive negative 02/09/19 14:30 Ur Barbiturates Screen Presumptive negative 02/09/19 14:30 Ur Phencyclidine Scrn Presumptive negative 02/09/19 14:30 Ur Amphetamines Screen Presumptive negative 02/09/19 14:30 U Benzodiazepines Scrn Presumptive negative 02/09/19 14:30 Urine Cocaine Screen Presumptive negative 02/09/19 14:30 U Marijuana (THC) Screen Presumptive negative 02/09/19 14:30 Drugs of Abuse Note Disclamer 02/09/19 14:30 Plasma/Serum Alcohol < 0.01 % (0-0.07) 02/09/19 09:16 Hepatitis A IgM Ab Non-reactive (NonReactive) 02/09/19 12:47 Hep Bs Antigen Non-reactive (Negative) 02/09/19 12:47 Hep B Core IgM Ab Non-reactive (NonReactive) 02/09/19 12:47 Hepatitis C Antibody Non-reactive (NonReactive) 02/09/19 12:47 Influenza A (Rapid) Negative (Negative) 02/12/19 Unknown Influenza A (RT-PCR) Negative (Negative) 02/12/19 Unknown Influenza B (Rapid) Negative (Negative) 02/12/19 Unknown Influenza B (RT-PCR) Negative (Negative) 02/12/19 Unknown Active Medications - Current Medications Current Medications: Generic Name Dose Route Start Last Admin Trade Name Freq PRN Reason Stop Dose Admin Acetaminophen 650 mg 02/09/19 22:59 Tylenol PO Q4H PRN Pain MILD(1-3)/Fever >100.5/ARREDONDO Albumin Human 25 gm 02/11/19 12:02 Alburx 25% (Albumin) IV TREVA PRN Hypotension Albuterol 1.25 mg 02/10/19 01:36 Proventil IH TIDRT PRN Shortness Of Breath Albuterol/Ipratropium 1 ampul 02/10/19 14:00 02/13/19 07:22 Duoneb *Not For Prn Use* IH 1 ampul Q6HRT YISEL Administration Famotidine 10 mg 02/12/19 15:00 02/13/19 10:00 Pepcid IV 10 mg QDAY YISEL Administration Gabapentin 800 mg 02/09/19 23:00 02/13/19 05:54 Gabapentin PO Not Given Q8HR YISEL Heparin Sodium (Porcine) 5,000 unit 02/10/19 22:00 02/13/19 10:00 Heparin SUB-Q 5,000 unit Q12HR YISEL Administration Hydromorphone HCl 0.25 mg 02/09/19 22:59 Dilaudid IV Q3H PRN Pain, Moderate (4-6) Dextrose 1,000 mls @ 40 mls/hr 02/10/19 08:00 02/13/19 06:27 D10w IV 75 mls/hr DIRECT YISEL Administration Cefepime HCl 1 gm in 100 mls @ 200 mls/hr 02/10/19 16:00 02/12/19 15:55 Cefepime/Ns 1 Gm/100 Ml IV Infused Q24H YISEL Infusion Sodium Chloride 100 mls @ 999 mls/hr 02/11/19 12:02 Nacl 0.9% IV TREVA PRN Hypotension Norepinephrine 4 mg in 250 mls @ 7.5 mls/hr 02/11/19 14:00 02/13/19 08:00 Levophed Drip 4 Mg/Ns 250 Ml IV 6 mcg/min TITR YISEL 22.5 mls/hr Administration Protocol 2 MCG/MIN Sodium Chloride 1,000 mls @ 75 mls/hr 02/12/19 15:00 02/13/19 03:43 Nacl 0.9% 1000 Ml IV 02/14/19 04:19 75 mls/hr DIRECT YISEL Administration Levofloxacin/Dextrose 500 mg in 100 mls @ 100 mls/hr 02/14/19 10:00 Levaquin 500mg/100ml IV Q48H [facility] Protocol Ondansetron HCl 4 mg 02/09/19 22:59 Zofran IV Q8H PRN Nausea And Vomiting Oxycodone/Acetaminophen 1 tab 02/09/19 22:59 Percocet 5/325 PO Q6H PRN Pain, Moderate (4-6) Sodium Chloride 10 ml 02/10/19 10:00 02/13/19 10:00 Sodium Chloride Flush Syringe 10 Ml IV 10 ml BID YISEL Administration Sodium Chloride 10 ml 02/09/19 22:59 02/10/19 06:44 Sodium Chloride Flush Syringe 10 Ml IV 10 ml PRN PRN Administration LINE FLUSH
--- NOTE | 2019-02-13 12:17 | Cat Scan Report ---
CT CHEST WITHOUT CONTRAST INDICATION / CLINICAL INFORMATION: severe sepsis with septic shock unclear source. TECHNIQUE: Axial CT images were obtained through the chest without contrast. All CT scans at this location are p erformed using CT dose reduction for ALARA by means of automated exposure control. COMPARISON: None available. FINDINGS: HEART: No significant abnormality. THORACIC AORTA: No significant abnormality. MEDIASTINUM and VICKIE: No significant abnormality. LUNGS: Low lung volumes with mild basilar atelectasis within both lower lungs. No significant interst itial edema or evidence of pneumonia. PLEURA: No significant pleural effusion. No pneumothorax. ADDITIONAL FINDINGS: None. UPPER ABDOMEN: No acute findings within the limits of the noncontrast exam. Some motion artifact with in the upper abdomen limits evaluation.. SKELETAL SYSTEM: No significant abnormality. IMPRESSION: Low lung volumes with patchy bibasilar density that appears most consistent with subsegmental atelect asis. No convincing evidence of pneumonia. No pericardial or pleural effusion. Signer Name: Orlando Naranjo MD Signed: 02/13/2019 12:13 PM Workstation Name: [id number]
[2019-02-13 16:39] LABS: MRSA PCR Negative (Negative)
[2019-02-13] MEDS: CEFEPIME/NS 1 GM/100 ML 1 GM/100 ML BAG IV SCH (16:42)
--- NOTE | 2019-02-13 17:33 | Progress Note ---
Assessment and Plan - Patient Problems (1) JESÚS (acute kidney injury) Current Visit: Yes Status: Acute Plan to address problem: Acute kidney injury on chronic kidney disease Baseline creatinine 1.6 in 2017 Admission creatinine of 7 with hyperkalemia will continue dialysis We will plan to repeat his dialysison tuesday for VOLUME OVERLOAD Reviewed urinalysis numerous red and white cells Strict in and output (2) Hyperkalemia Current Visit: Yes Status: Acute Plan to address problem: Hyperkalemia resolved continue dialysis (3) Diabetes Current Visit: No Status: Acute Plan to address problem: Diabetes mellitus type 2 Continue medications (4) Acute encephalopathy Current Visit: Yes Status: Acute Plan to address problem: Encephalopathy: much improved. continue hemodialysis. Subjective Principal diagnosis: Ac. hypercapnic resp. failure; Severe Sepsis with Shock; JESÚS on CKD; AUDI Interval history: 68 year old female with medical history significant for altered mental status , acute kidney injury ,hypoglycemia , baseline creatinine of 1.6mg/dl in 2017 admitted with hyperkalemia and Acute kidney injury Patient now on nasal cannula family updated on plan of care. has femoral vas cath. Will plan for repeat HD tomorrow. Objective - Vital Signs Vital signs: Vital Signs - 12hr 02/13/19 02/13/19 02/13/19 05:40 05:50 06:00 Temperature Pulse Rate 81 82 80 Pulse Rate [ Anterior Bilateral Throughout] Pulse Rate [ From Monitor] Respiratory 19 15 13 Rate Respiratory Rate [Anterior Bilateral Throughout] Blood Pressure 120/54 121/60 118/55 O2 Sat by Pulse 96 96 97 Oximetry 02/13/19 02/13/19 02/13/19 06:10 06:21 06:30 Temperature Pulse Rate 80 81 81 Pulse Rate [ Anterior Bilateral Throughout] Pulse Rate [ From Monitor] Respiratory 18 10 L 19 Rate Respiratory Rate [Anterior Bilateral Throughout] Blood Pressure 116/58 116/55 123/55 O2 Sat by Pulse 99 99 97 Oximetry 02/13/19 02/13/19 02/13/19 06:40 06:50 07:00 Temperature Pulse Rate 82 79 78 Pulse Rate [ Anterior Bilateral Throughout] Pulse Rate [ From Monitor] Respiratory 17 14 15 Rate Respiratory Rate [Anterior Bilateral Throughout] Blood Pressure 115/54 116/55 120/57 O2 Sat by Pulse 90 97 97 Oximetry 02/13/19 02/13/19 02/13/19 07:10 07:20 07:22 Temperature Pulse Rate 85 81 Pulse Rate [ 81 Anterior Bilateral Throughout] Pulse Rate [ From Monitor] Respiratory 18 15 Rate Respiratory 17 Rate [Anterior Bilateral Throughout] Blood Pressure 115/52 110/56 O2 Sat by Pulse 96 96 Oximetry 02/13/19 02/13/19 02/13/19 07:30 07:34 07:40 Temperature Pulse Rate 81 83 Pulse Rate [ Anterior Bilateral Throughout] Pulse Rate [ From Monitor] Respiratory 16 15 Rate Respiratory Rate [Anterior Bilateral Throughout] Blood Pressure 121/58 114/58 O2 Sat by Pulse 96 97 96 Oximetry 02/13/19 02/13/19 02/13/19 07:50 08:00 08:10 Temperature 97.7 F Pulse Rate 83 85 81 Pulse Rate [ Anterior Bilateral Throughout] Pulse Rate [ 89 From Monitor] Respiratory 18 19 17 Rate Respiratory Rate [Anterior Bilateral Throughout] Blood Pressure 113/58 116/59 94/45 O2 Sat by Pulse 97 98 97 Oximetry 02/13/19 02/13/19 02/13/19 08:20 08:30 08:40 Temperature Pulse Rate 83 83 83 Pulse Rate [ Anterior Bilateral Throughout] Pulse Rate [ From Monitor] Respiratory 16 17 16 Rate Respiratory Rate [Anterior Bilateral Throughout] Blood Pressure 93/65 98/47 92/48 O2 Sat by Pulse 99 96 97 Oximetry 02/13/19 02/13/19 02/13/19 08:41 08:50 09:00 Temperature 97.7 F Pulse Rate 84 87 Pulse Rate [ Anterior Bilateral Throughout] Pulse Rate [ From Monitor] Respiratory 14 17 Rate Respiratory Rate [Anterior Bilateral Throughout] Blood Pressure 122/63 106/50 O2 Sat by Pulse 97 98 Oximetry 02/13/19 02/13/19 02/13/19 09:10 09:20 09:30 Temperature Pulse Rate 82 82 85 Pulse Rate [ Anterior Bilateral Throughout] Pulse Rate [ From Monitor] Respiratory 15 15 18 Rate Respiratory Rate [Anterior Bilateral Throughout] Blood Pressure 111/50 113/52 109/53 O2 Sat by Pulse 98 97 97 Oximetry 02/13/19 02/13/19 02/13/19 09:40 09:50 10:00 Temperature Pulse Rate 83 81 84 Pulse Rate [ Anterior Bilateral Throughout] Pulse Rate [ From Monitor] Respiratory 17 16 19 Rate Respiratory Rate [Anterior Bilateral Throughout] Blood Pressure 118/61 116/57 118/61 O2 Sat by Pulse 99 97 Oximetry 02/13/19 02/13/19 02/13/19 10:10 10:20 10:30 Temperature Pulse Rate 87 83 83 Pulse Rate [ Anterior Bilateral Throughout] Pulse Rate [ From Monitor] Respiratory 18 18 16 Rate Respiratory Rate [Anterior Bilateral Throughout] Blood Pressure 120/59 121/53 115/61 O2 Sat by Pulse 98 97 97 Oximetry 02/13/19 02/13/19 02/13/19 10:40 10:50 11:00 Temperature Pulse Rate 80 83 84 Pulse Rate [ Anterior Bilateral Throughout] Pulse Rate [ From Monitor] Respiratory 17 16 17 Rate Respiratory Rate [Anterior Bilateral Throughout] Blood Pressure 121/59 123/63 123/60 O2 Sat by Pulse 97 98 97 Oximetry 02/13/19 02/13/19 02/13/19 11:59 12:00 12:10 Temperature 98.4 F Pulse Rate 83 81 Pulse Rate [ Anterior Bilateral Throughout] Pulse Rate [ 83 From Monitor] Respiratory 12 14 40 H Rate Respiratory Rate [Anterior Bilateral Throughout] Blood Pressure 121/60 121/60 103/59 O2 Sat by Pulse 100 98 100 Oximetry 02/13/19 02/13/19 02/13/19 12:20 12:30 12:40 Temperature Pulse Rate 81 83 83 Pulse Rate [ Anterior Bilateral Throughout] Pulse Rate [ From Monitor] Respiratory 27 H 15 21 Rate Respiratory Rate [Anterior Bilateral Throughout] Blood Pressure 98/48 104/54 99/64 O2 Sat by Pulse 98 98 96 Oximetry 02/13/19 02/13/19 02/13/19 12:50 13:00 13:10 Temperature Pulse Rate 81 82 81 Pulse Rate [ Anterior Bilateral Throughout] Pulse Rate [ From Monitor] Respiratory 15 12 16 Rate Respiratory Rate [Anterior Bilateral Throughout] Blood Pressure 109/55 119/54 108/61 O2 Sat by Pulse 93 96 95 Oximetry 02/13/19 02/13/19 02/13/19 13:20 13:30 13:40 Temperature Pulse Rate 78 82 81 Pulse Rate [ Anterior Bilateral Throughout] Pulse Rate [ From Monitor] Respiratory 20 11 L 11 L Rate Respiratory Rate [Anterior Bilateral Throughout] Blood Pressure 106/53 114/56 114/61 O2 Sat by Pulse 94 96 96 Oximetry 02/13/19 02/13/19 02/13/19 13:50 13:57 14:00 Temperature Pulse Rate 83 80 Pulse Rate [ 82 Anterior Bilateral Throughout] Pulse Rate [ From Monitor] Respiratory 14 15 Rate Respiratory 18 Rate [Anterior Bilateral Throughout] Blood Pressure 117/58 101/64 O2 Sat by Pulse 98 96 Oximetry - General Appearance General appearance: well-developed, well-nourished, cachectic EENT: ATNC, PERRL Neck: no JVD Respiratory: Present: Decreased Breath Sounds Cardiology: regular, S1S2 Gastrointestinal: normal, normoactive bowel sounds Integumentary: no rash Neurologic: alert and oriented x3, CN 3-12 intact Psychiatric: mood/affect appropriate - Lab 02/13/19 05:12 02/13/19 05:12 Most recent lab results Calcium 8.5 mg/dL (8.4-10.2) 02/13/19 05:12 Phosphorus 4.10 mg/dL (2.5-4.5) 02/09/19 12:47 Urine Creatinine 162.4 mg/dL (0.1-20.0) H 02/09/19 14:30 Urine Sodium 38 mmol/L 02/09/19 14:30 Urine Total Protein 49 mg/dL (5-11.8) H 02/09/19 14:30 - Imaging Chest x-ray: image reviewed (cxr reviewed with pulmonary edema. ) Medications & Allergies - Medications Allergies/Adverse Reactions: Allergies No Known Allergies Allergy (Verified 06/21/16 01:02) Home Medications: Home Medications Medication Instructions Recorded Confirmed Last Taken Type Fluticasone [Flonase] 50 mcg IH Q4-6H PRN 06/21/16 02/10/19 Unknown History Gabapentin [Neurontin] 800 mg PO Q8H 06/21/16 02/10/19 06/19/16 History Glimepiride [Amaryl] 2 mg PO QAM 06/21/16 02/10/19 06/20/16 History Insulin Glargine,Hum.rec.anlog 100 units SUB-Q QHS 06/21/16 02/10/19 06/19/16 History [Lantus Solostar] Lisinopril [Zestril TAB] 40 mg PO QDAY 06/21/16 02/10/19 06/20/16 History Metformin HCl [Metformin HCl ER] 500 mg PO BID 06/21/16 02/10/19 06/20/16 History amLODIPine [Norvasc] 5 mg PO DAILY 0302/10/19 06/20/16 History Albuterol Sulfate [Albuterol 0.63% 0.63 mg IH TID PRN #1 box 06/22/16 02/10/19 Unknown Rx NEBS] Azithromycin [Zithromax TAB] 250 mg PO QDAY #6 tablet 06/22/16 02/10/19 Unknown Rx Benzonatate [Tessalon Perles] 100 mg PO Q8HR #30 capsule 06/22/16 02/10/19 Unknown Rx Ipratropium [Atrovent NEB] 0.5 mg IH Q8HRT #1 box 06/22/16 02/10/19 Unknown Rx Nebulizer and Compressor 1 each MC DAILY PRN #1 each 06/22/16 02/10/19 Unknown R x [Devilbiss Pulmoneb Lt Comp-Neb] Prednisone [predniSONE 10 mg 10 mg PO .TAPER #1 tab.ds.pk 06/22/16 02/10/19 Unknown Rx (6-Day Pack, 21 Tabs)] Active Medications: Generic Name Dose Route Start Last Admin Trade Name Freq PRN Reason Stop Dose Admin Acetaminophen 650 mg 02/09/19 22:59 Tylenol PO Q4H PRN Pain MILD(1-3)/Fever >100.5/ARREDONDO Albumin Human 25 gm 02/11/19 12:02 Alburx 25% (Albumin) IV TREVA PRN Hypotension Albuterol 1.25 mg 02/10/19 01:36 Proventil IH TIDRT PRN Shortness Of Breath Albuterol/Ipratropium 1 ampul 02/10/19 14:00 02/13/19 13:57 Duoneb *Not For Prn Use* IH 1 ampul Q6HRT YISEL Administration Famotidine 10 mg 02/12/19 15:00 02/13/19 10:00 Pepcid IV 10 mg QDAY YISEL Administration Gabapentin 800 mg 02/09/19 23:00 02/13/19 14:33 Gabapentin PO 800 mg Q8HR YISEL Administration Heparin Sodium (Porcine) 5,000 unit 02/10/19 22:00 02/13/19 10:00 Heparin SUB-Q 5,000 unit Q12HR YISEL Administration Hydromorphone HCl 0.25 mg 02/09/19 22:59 Dilaudid IV Q3H PRN Pain, Moderate (4-6) Cefepime HCl 1 gm in 100 mls @ 200 mls/hr 02/10/19 16:00 02/13/19 16:42 Cefepime/Ns 1 Gm/100 Ml IV 200 mls/hr Q24H YISEL Administration Sodium Chloride 100 mls @ 999 mls/hr 02/11/19 12:02 Nacl 0.9% IV TREVA PRN Hypotension Norepinephrine 4 mg in 250 mls @ 7.5 mls/hr 02/11/19 14:00 02/13/19 12:22 Levophed Drip 4 Mg/Ns 250 Ml IV 6 mcg/min TITR YISEL 22.5 mls/hr Titration Protocol 2 MCG/MIN Sodium Chloride 1,000 mls @ 75 mls/hr 02/12/19 15:00 02/13/19 03:43 Nacl 0.9% 1000 Ml IV 02/14/19 04:19 75 mls/hr DIRECT YISEL Administration Levofloxacin/Dextrose 500 mg in 100 mls @ 100 mls/hr 02/14/19 10:00 Levaquin 500mg/100ml IV Q48H YISEL Protocol Ondansetron HCl 4 mg 02/09/19 22:59 Zofran IV Q8H PRN Nausea And Vomiting Oxycodone/Acetaminophen 1 tab 02/09/19 22:59 Percocet 5/325 PO Q6H PRN Pain, Moderate (4-6) Sodium Chloride 10 ml 02/10/19 10:00 02/13/19 10:00 Sodium Chloride Flush Syringe 10 Ml IV 10 ml BID YISEL Administration Sodium Chloride 10 ml 02/09/19 22:59 02/10/19 06:44 Sodium Chloride Flush Syringe 10 Ml IV 10 ml PRN PRN Administration LINE FLUSH
[2019-02-13] MEDS: INSULIN LISPRO 100 UNIT/ML SUB-Q SCH ×2 (20:13→23:56)
[2019-02-14] MEDS: IPRATROPIUM/ALBUTEROL SULFATE 3 ML AMPUL.NEB IH SCH ×4 (01:09→19:55)
[2019-02-14] MEDS: NORepinephrine/NS 4 MG-250 ML 4 MG/250 ML BAG IV SCH ×2 (01:25→07:29)
[2019-02-14] MEDS: INSULIN LISPRO 100 UNIT/ML SUB-Q SCH ×3 (06:05→18:58)
[2019-02-14] MEDS: GABAPENTIN 400 MG CAP PO SCH ×3 (06:06→22:27)
[2019-02-14 06:10] LABS: Calcium 8.5 mg/dL (8.4-10.2)
[2019-02-14] MEDS: HEPARIN 5,000 UNIT/1 ML VIAL SUB-Q SCH ×2 (09:11→22:28)
[2019-02-14] MEDS: FAMOTIDINE 20 MG TAB PO SCH (09:23)
[2019-02-14 09:26] LABS: Hematocrit 23.2 % (30.3-42.9); Hemoglobin 7.3 gm/dl (10.1-14.3); Mean Corpuscular HGB Conc 32 % (30-34); Mean Corpuscular Volume 101 fl (79-97); Platelet Count 171 K/mm3 (140-440); Red Blood Count 2.28 M/mm3 (3.65-5.03); Red Cell Distribution Width 16.1 % (13.2-15.2)
--- NOTE | 2019-02-14 12:02 | Progress Note ---
Assessment and Plan Acute hypercapnic respiratory failure Acute toxic-metabolic encephalopathy Severe Sepsis with Shock JESÚS on CKD requiring Hemodialysis Extreme obesity AUDI/OHS - begin Lantus insulin 5 units sq daily - continue ST evaluation and advance diet per recommendations - continue to wean vasopressor support for target MAP > 65 mmHg - cotinue HD/UF per nephrology for toxin and volume clearance - continue Pepcid for GI prophylaxis - continue to give daytime breaks on BIPAP as tolerated (still acidotic and will watch closely)[IPAP 24 & rate 20/min] - continue empiric antibiotics for Sepsis and adjust per ID rec's (de-escalate based on clinical and microbiologic data) - continue GI & VTE prophylaxis - continue fall precautions - neurochecks - follow MRI report - continue accuchecks with glycemic control per SSI (While critically ill target blood glucose of 140-180 mg/dL; avoid hypoglycemia) - mobility protocol for pressure ulcer prevention - Monitor hemodynamics closely - Monitor electrolyte profile closely and replete as indicated - resume pertinent chronic home medications as clinically indicated - continue lynch catheter in this critically ill patient, with JESÚS requiring accurate intake and output monitoring - continue other care per attending / other energy sales consultant's ..... care plan discussed with brother in room ... re-evaluate in am & prn CONDITION: CRITICAL PROGNOSIS: GUARDED-POOR CODE STATUS: FULL CODE The high probability of a clinically significant, sudden or life-threatening deterioration of the [respiratory, cardiovascular, neurology] system(s) required my full and direct attention, intervention and personal management. The aggregate critical care time was [34] minutes without overlap. Time includes spent on; [x] Data Review and interpretation [x] Patient assessment and monitoring of vital signs [x] Documentation [x] Medication orders and management Subjective Date of service: 02/14/19 Principal diagnosis: Ac. hypercapnic resp. failure; Severe Sepsis with Shock; JESÚS on CKD; AUDI Interval history: Patient is seen today for: Acute hypercapnic respiratory failure; Acute toxic- metabolic encephalopathy; Severe Sepsis with Shock ; JESÚS on CKD requiring Hemodialysis; Extreme obesity; AUDI/OHS Seen and examined at bedside; 24hour events reviewed; nursing and respiratory care staff consulted; no adverse overnight events reported to me; resting peacefully in bed; Dialysis ongoing; still somnolent to lethargic; No N/V/F/C Objective Vital Signs - 12hr 02/14/19 02/14/19 02/14/19 00:15 00:25 00:30 Temperature Pulse Rate 79 78 78 Pulse Rate [ Anterior Bilateral Throughout] Pulse Rate [ From Monitor] Respiratory 16 25 H 18 Rate Respiratory Rate [Anterior Bilateral Throughout] Blood Pressure 108/64 119/65 119/65 O2 Sat by Pulse 97 98 Oximetry 02/14/19 02/14/19 02/14/19 00:45 01:00 01:15 Temperature Pulse Rate 77 75 76 Pulse Rate [ Anterior Bilateral Throughout] Pulse Rate [ From Monitor] Respiratory 17 17 25 H Rate Respiratory Rate [Anterior Bilateral Throughout] Blood Pressure 107/63 103/59 104/58 O2 Sat by Pulse 96 99 96 Oximetry 02/14/19 02/14/19 02/14/19 01:18 01:30 01:45 Temperature Pulse Rate 95 H 75 Pulse Rate [ 82 Anterior Bilateral Throughout] Pulse Rate [ From Monitor] Respiratory 21 20 Rate Respiratory 18 Rate [Anterior Bilateral Throughout] Blood Pressure 111/68 101/57 O2 Sat by Pulse Oximetry 02/14/19 02/14/19 02/14/19 02:00 02:15 02:30 Temperature Pulse Rate 75 75 75 Pulse Rate [ Anterior Bilateral Throughout] Pulse Rate [ From Monitor] Respiratory 20 20 19 Rate Respiratory Rate [Anterior Bilateral Throughout] Blood Pressure 99/57 103/58 99/56 O2 Sat by Pulse Oximetry 02/14/19 02/14/19 02/14/19 02:45 03:00 03:15 Temperature Pulse Rate 76 74 74 Pulse Rate [ Anterior Bilateral Throughout] Pulse Rate [ From Monitor] Respiratory 20 20 20 Rate Respiratory Rate [Anterior Bilateral Throughout] Blood Pressure 99/55 96/53 95/52 O2 Sat by Pulse 97 98 97 Oximetry 02/14/19 02/14/19 02/14/19 03:20 03:30 03:45 Temperature Pulse Rate 74 76 75 Pulse Rate [ Anterior Bilateral Throughout] Pulse Rate [ From Monitor] Respiratory 20 22 20 Rate Respiratory Rate [Anterior Bilateral Throughout] Blood Pressure 95/52 85/58 92/56 O2 Sat by Pulse 97 99 Oximetry 02/14/19 02/14/19 02/14/19 03:52 04:00 04:15 Temperature 99.8 F H Pulse Rate 75 76 Pulse Rate [ Anterior Bilateral Throughout] Pulse Rate [ 74 From Monitor] Respiratory 22 18 Rate Respiratory Rate [Anterior Bilateral Throughout] Blood Pressure 98/55 111/60 O2 Sat by Pulse 100 97 Oximetry 02/14/19 02/14/19 02/14/19 04:30 04:45 05:00 Temperature Pulse Rate 74 74 76 Pulse Rate [ Anterior Bilateral Throughout] Pulse Rate [ From Monitor] Respiratory 17 18 11 L Rate Respiratory Rate [Anterior Bilateral Throughout] Blood Pressure 103/58 107/56 111/61 O2 Sat by Pulse Oximetry 02/14/19 02/14/19 02/14/19 05:16 05:30 05:45 Temperature Pulse Rate 75 74 73 Pulse Rate [ Anterior Bilateral Throughout] Pulse Rate [ From Monitor] Respiratory 27 H 17 20 Rate Respiratory Rate [Anterior Bilateral Throughout] Blood Pressure 111/61 121/68 126/70 O2 Sat by Pulse 97 96 Oximetry 02/14/19 02/14/19 02/14/19 06:00 06:15 06:30 Temperature 99.8 F H Pulse Rate 72 80 71 Pulse Rate [ Anterior Bilateral Throughout] Pulse Rate [ From Monitor] Respiratory 23 23 22 Rate Respiratory Rate [Anterior Bilateral Throughout] Blood Pressure 120/67 134/65 136/67 O2 Sat by Pulse 98 97 96 Oximetry 02/14/19 02/14/19 02/14/19 06:45 07:00 07:15 Temperature Pulse Rate 71 70 71 Pulse Rate [ Anterior Bilateral Throughout] Pulse Rate [ From Monitor] Respiratory 20 16 19 Rate Respiratory Rate [Anterior Bilateral Throughout] Blood Pressure 123/62 131/67 112/46 O2 Sat by Pulse 96 98 96 Oximetry 02/14/19 02/14/19 02/14/19 07:30 07:45 08:00 Temperature Pulse Rate 72 73 72 Pulse Rate [ Anterior Bilateral Throughout] Pulse Rate [ 74 From Monitor] Respiratory 19 13 21 Rate Respiratory Rate [Anterior Bilateral Throughout] Blood Pressure 124/56 121/59 113/52 O2 Sat by Pulse 97 98 97 Oximetry 02/14/19 02/14/19 02/14/19 08:15 08:30 08:45 Temperature Pulse Rate 74 74 70 Pulse Rate [ Anterior Bilateral Throughout] Pulse Rate [ From Monitor] Respiratory 17 20 20 Rate Respiratory Rate [Anterior Bilateral Throughout] Blood Pressure 122/57 112/50 107/54 O2 Sat by Pulse 99 97 92 Oximetry 02/14/19 02/14/19 02/14/19 09:00 09:15 09:30 Temperature Pulse Rate 72 75 75 Pulse Rate [ Anterior Bilateral Throughout] Pulse Rate [ From Monitor] Respiratory 20 20 23 Rate Respiratory Rate [Anterior Bilateral Throughout] Blood Pressure 101/51 118/64 118/69 O2 Sat by Pulse 95 97 94 Oximetry 02/14/19 02/14/19 02/14/19 09:38 09:39 09:45 Temperature Pulse Rate 74 Pulse Rate [ 74 Anterior Bilateral Throughout] Pulse Rate [ From Monitor] Respiratory 21 Rate Respiratory 18 Rate [Anterior Bilateral Throughout] Blood Pressure 120/67 O2 Sat by Pulse 95 95 Oximetry 02/14/19 02/14/19 02/14/19 10:00 10:15 10:30 Temperature 98.7 F Pulse Rate 76 75 77 Pulse Rate [ Anterior Bilateral Throughout] Pulse Rate [ From Monitor] Respiratory 19 23 15 Rate Respiratory Rate [Anterior Bilateral Throughout] Blood Pressure 128/63 126/66 120/66 O2 Sat by Pulse 96 94 95 Oximetry 02/14/19 02/14/19 10:45 11:00 Temperature Pulse Rate 77 78 Pulse Rate [ Anterior Bilateral Throughout] Pulse Rate [ From Monitor] Respiratory 21 11 L Rate Respiratory Rate [Anterior Bilateral Throughout] Blood Pressure 120/64 120/64 O2 Sat by Pulse 95 98 Oximetry Constitutional: appears uncomfortable, other (elderly looking morbidly obese AAF, normocephalic on BIPAP with mildly increased respiratory effort at rest) Eyes: non-icteric ENT: oropharynx moist, other (on nnasal cannula) Neck: supple, no lymphadenopathy, no JVD, other (+ large neck circumference) Effort: mildly labored Ascultation: Bilateral: clear, diminished breath sounds Percussion: Bilateral: not dull Cardiovascular: regular rate and rhythm Gastrointestinal: normoactive bowel sounds, soft, non-tender, non-distended, other (Protuberant) Integumentary: rash (stasisi dermatitis) Extremities: no cyanosis, no edema, pulses normal, no ischemia or petechiae Neurologic: non-focal exam (grossly), pupils equal and round, other (Encephalopathic) Psychiatric: mood appropriate, affect normal CBC and BMP: 02/15/19 07:55 02/15/19 05:23 ABG, PT/INR, D-dimer: ABG POC ABG pH 7.337 (7.35-7.45) L 02/13/19 09:52 POC ABG pCO2 43.2 (35-45) 02/13/19 09:52 POC ABG pO2 100 (80-105) 02/13/19 09:52 POC ABG HCO3 23.1 (22-26 mml/L) 02/13/19 09:52 POC ABG Total CO2 24 (23-27mmol/L) 02/13/19 09:52 POC ABG O2 Sat 97 02/13/19 09:52 PT/INR, D-dimer PT 17.8 Sec. (12.2-14.9) H 02/09/19 09:16 INR 1.49 (0.87-1.13) H 02/09/19 09:16 Abnormal lab findings: Abnormal Labs 02/09/19 02/09/19 02/09/19 08:48 09:16 09:16 WBC 14.6 H RBC 2.48 L Hgb 8.2 L Hct 25.4 L MCV 102 H MCH 33 H RDW 16.1 H Seg Neuts % (Manual) 94.0 H Lymphocytes % (Manual) 1.0 L Nucleated RBC % 1.0 H Seg Neutrophils # Man 13.7 H Lymphocytes # (Manual) 0.1 L PT 17.8 H INR 1.49 H POC ABG pH POC ABG pCO2 POC ABG pO2 Sodium Potassium Chloride Carbon Dioxide BUN Creatinine Glucose POC Glucose 51 L Hemoglobin A1c Calcium Total Bilirubin Ammonia Total Creatine Kinase Troponin T Total Protein Albumin Cholesterol LDL Cholesterol Direct HDL Cholesterol TSH Urine WBC (Auto) Urine Creatinine Urine Total Protein 02/09/19 02/09/19 02/09/19 09:16 09:16 09:16 WBC RBC Hgb Hct MCV MCH RDW Seg Neuts % (Manual) Lymphocytes % (Manual) Nucleated RBC % Seg Neutrophils # Man Lymphocytes # (Manual) PT INR POC ABG pH POC ABG pCO2 POC ABG pO2 Sodium 131 L Potassium 6.0 H Chloride 91.4 L Carbon Dioxide 18 L BUN 115 H Creatinine 6.8 H Glucose POC Glucose Hemoglobin A1c Calcium Total Bilirubin 2.90 H Ammonia 61.0 H Total Creatine Kinase 264 H Troponin T 0.073 H Total Protein 8.8 H Albumin 2.6 L Cholesterol 47 L LDL Cholesterol Direct 13 L HDL Cholesterol 27 L TSH 5.570 H Urine WBC (Auto) Urine Creatinine Urine Total Protein 02/09/19 02/09/19 02/09/19 12:47 14:30 14:30 WBC RBC Hgb Hct MCV MCH RDW Seg Neuts % (Manual) Lymphocytes % (Manual) Nucleated RBC % Seg Neutrophils # Man Lymphocytes # (Manual) PT INR POC ABG pH POC ABG pCO2 POC ABG pO2 Sodium 131 L Potassium 5.6 H Chloride 91.8 L Carbon Dioxide 17 L BUN 117 H Creatinine 6.5 H Glucose 50 L POC Glucose Hemoglobin A1c Calcium Total Bilirubin Ammonia Total Creatine Kinase Troponin T Total Protein Albumin Cholesterol LDL Cholesterol Direct HDL Cholesterol TSH Urine WBC (Auto) 32.0 H Urine Creatinine 162.4 H Urine Total Protein 49 H 02/09/19 02/09/19 02/09/19 15:05 15:39 19:03 WBC RBC Hgb Hct MCV MCH RDW Seg Neuts % (Manual) Lymphocytes % (Manual) Nucleated RBC % Seg Neutrophils # Man Lymphocytes # (Manual) PT INR POC ABG pH POC ABG pCO2 POC ABG pO2 Sodium 131 L Potassium 5.7 H Chloride 93.6 L Carbon Dioxide 19 L BUN 111 H Creatinine 7.0 H Glucose 48 L POC Glucose < 40 L 112 H Hemoglobin A1c Calcium Total Bilirubin Ammonia Total Creatine Kinase Troponin T Total Protein Albumin Cholesterol LDL Cholesterol Direct HDL Cholesterol TSH Urine WBC (Auto) Urine Creatinine Urine Total Protein 02/09/19 02/09/19 02/10/19 21:59 23:24 03:06 WBC RBC Hgb Hct MCV MCH RDW Seg Neuts % (Manual) Lymphocytes % (Manual) Nucleated RBC % Seg Neutrophils # Man Lymphocytes # (Manual) PT INR POC ABG pH POC ABG pCO2 POC ABG pO2 Sodium Potassium Chloride Carbon Dioxide BUN Creatinine Glucose POC Glucose 61 L < 40 L Hemoglobin A1c 8.5 H Calcium Total Bilirubin Ammonia Total Creatine Kinase Troponin T Total Protein Albumin Cholesterol LDL Cholesterol Direct HDL Cholesterol TSH Urine WBC (Auto) Urine Creatinine Urine Total Protein 02/10/19 02/10/19 02/10/19 06:36 06:39 07:21 WBC RBC Hgb Hct MCV MCH RDW Seg Neuts % (Manual) Lymphocytes % (Manual) Nucleated RBC % Seg Neutrophils # Man Lymphocytes # (Manual) PT INR POC ABG pH POC ABG pCO2 POC ABG pO2 Sodium 130 L Potassium 6.2 H* Chloride 89.4 L Carbon Dioxide 17 L BUN 124 H Creatinine 6.8 H Glucose 120 H POC Glucose 60 L 120 H Hemoglobin A1c Calcium 8.3 L Total Bilirubin 3.10 H Ammonia Total Creatine Kinase Troponin T Total Protein 8.3 H Albumin 2.4 L Cholesterol LDL Cholesterol Direct HDL Cholesterol TSH Urine WBC (Auto) Urine Creatinine Urine Total Protein 02/10/19 02/10/19 02/10/19 09:28 10:20 10:32 WBC 14.7 H RBC 2.60 L Hgb 8.5 L Hct 26.9 L MCV 104 H MCH 33 H RDW 16.6 H Seg Neuts % (Manual) 96.0 H Lymphocytes % (Manual) 1.0 L Nucleated RBC % 3.0 H Seg Neutrophils # Man 14.1 H Lymphocytes # (Manual) 0.1 L PT INR POC ABG pH POC ABG pCO2 POC ABG pO2 Sodium Potassium 5.9 H Chloride Carbon Dioxide BUN Creatinine Glucose POC Glucose 64 L Hemoglobin A1c Calcium Total Bilirubin Ammonia Total Creatine Kinase Troponin T Total Protein Albumin Cholesterol LDL Cholesterol Direct HDL Cholesterol TSH Urine WBC (Auto) Urine Creatinine Urine Total Protein 02/10/19 02/10/19 02/11/19 14:15 20:06 04:48 WBC RBC Hgb Hct MCV MCH RDW Seg Neuts % (Manual) Lymphocytes % (Manual) Nucleated RBC % Seg Neutrophils # Man Lymphocytes # (Manual) PT INR POC ABG pH POC ABG pCO2 POC ABG pO2 Sodium 130 L Potassium Chloride 91.2 L Carbon Dioxide 20 L BUN 81 H Creatinine 5.7 H Glucose POC Glucose 67 L 113 H Hemoglobin A1c Calcium 8.1 L Total Bilirubin Ammonia Total Creatine Kinase Troponin T Total Protein Albumin Cholesterol LDL Cholesterol Direct HDL Cholesterol TSH Urine WBC (Auto) Urine Creatinine Urine Total Protein 02/11/19 02/11/19 02/11/19 07:56 10:35 11:46 WBC RBC Hgb Hct MCV MCH RDW Seg Neuts % (Manual) Lymphocytes % (Manual) Nucleated RBC % Seg Neutrophils # Man Lymphocytes # (Manual) PT INR POC ABG pH 7.304 L POC ABG pCO2 47.7 H POC ABG pO2 142 H Sodium Potassium Chloride Carbon Dioxide BUN Creatinine Glucose POC Glucose 124 H 128 H Hemoglobin A1c Calcium Total Bilirubin Ammonia Total Creatine Kinase Troponin T Total Protein Albumin Cholesterol LDL Cholesterol Direct HDL Cholesterol TSH Urine WBC (Auto) Urine Creatinine Urine Total Protein 02/11/19 02/11/19 02/11/19 14:56 18:16 23:48 WBC RBC Hgb Hct MCV MCH RDW Seg Neuts % (Manual) Lymphocytes % (Manual) Nucleated RBC % Seg Neutrophils # Man Lymphocytes # (Manual) PT INR POC ABG pH POC ABG pCO2 POC ABG pO2 Sodium Potassium Chloride Carbon Dioxide BUN Creatinine Glucose POC Glucose 146 H 136 H 141 H Hemoglobin A1c Calcium Total Bilirubin Ammonia Total Creatine Kinase Troponin T Total Protein Albumin Cholesterol LDL Cholesterol Direct HDL Cholesterol TSH Urine WBC (Auto) Urine Creatinine Urine Total Protein 02/12/19 02/12/19 02/12/19 05:35 05:53 11:09 WBC RBC Hgb Hct MCV MCH RDW Seg Neuts % (Manual) Lymphocytes % (Manual) Nucleated RBC % Seg Neutrophils # Man Lymphocytes # (Manual) PT INR POC ABG pH 7.336 L POC ABG pCO2 POC ABG pO2 Sodium 133 L Potassium Chloride 93.8 L Carbon Dioxide 19 L BUN 61 H Creatinine 4.5 H Glucose 165 H POC Glucose 170 H Hemoglobin A1c Calcium 8.3 L Total Bilirubin Ammonia Total Creatine Kinase Troponin T Total Protein Albumin Cholesterol LDL Cholesterol Direct HDL Cholesterol TSH Urine WBC (Auto) Urine Creatinine Urine Total Protein 02/12/19 02/12/19 02/12/19 11:56 18:05 23:43 WBC RBC Hgb Hct MCV MCH RDW Seg Neuts % (Manual) Lymphocytes % (Manual) Nucleated RBC % Seg Neutrophils # Man Lymphocytes # (Manual) PT INR POC ABG pH POC ABG pCO2 POC ABG pO2 Sodium Potassium Chloride Carbon Dioxide BUN Creatinine Glucose POC Glucose 187 H 207 H 236 H Hemoglobin A1c Calcium Total Bilirubin Ammonia Total Creatine Kinase Troponin T Total Protein Albumin Cholesterol LDL Cholesterol Direct HDL Cholesterol TSH Urine WBC (Auto) Urine Creatinine Urine Total Protein 02/13/19 02/13/19 02/13/19 05:12 05:12 05:31 WBC 32.4 H RBC 2.54 L Hgb 8.3 L Hct 26.0 L MCV 102 H MCH 33 H RDW 16.5 H Seg Neuts % (Manual) 92.0 H Lymphocytes % (Manual) 3.0 L Nucleated RBC % 1.0 H Seg Neutrophils # Man 29.8 H Lymphocytes # (Manual) 1.0 L PT INR POC ABG pH POC ABG pCO2 POC ABG pO2 Sodium Potassium Chloride 97.9 L Carbon Dioxide 19 L BUN 44 H Creatinine 3.1 H Glucose 252 H POC Glucose 237 H Hemoglobin A1c Calcium Total Bilirubin Ammonia Total Creatine Kinase Troponin T Total Protein Albumin Cholesterol LDL Cholesterol Direct HDL Cholesterol TSH Urine WBC (Auto) Urine Creatinine Urine Total Protein 02/13/19 02/13/19 02/13/19 09:52 12:02 17:21 WBC RBC Hgb Hct MCV MCH RDW Seg Neuts % (Manual) Lymphocytes % (Manual) Nucleated RBC % Seg Neutrophils # Man Lymphocytes # (Manual) PT INR POC ABG pH 7.337 L POC ABG pCO2 POC ABG pO2 Sodium Potassium Chloride Carbon Dioxide BUN Creatinine Glucose POC Glucose 318 H 342 H Hemoglobin A1c Calcium Total Bilirubin Ammonia Total Creatine Kinase Troponin T Total Protein Albumin Cholesterol LDL Cholesterol Direct HDL Cholesterol TSH Urine WBC (Auto) Urine Creatinine Urine Total Protein 02/13/19 02/14/19 02/14/19 23:40 05:27 05:54 WBC RBC Hgb Hct MCV MCH RDW Seg Neuts % (Manual) Lymphocytes % (Manual) Nucleated RBC % Seg Neutrophils # Man Lymphocytes # (Manual) PT INR POC ABG pH POC ABG pCO2 POC ABG pO2 Sodium Potassium Chloride Carbon Dioxide 17 L BUN 65 H Creatinine 3.6 H Glucose 286 H POC Glucose 338 H 253 H Hemoglobin A1c Calcium Total Bilirubin Ammonia Total Creatine Kinase Troponin T Total Protein Albumin Cholesterol LDL Cholesterol Direct HDL Cholesterol TSH Urine WBC (Auto) Urine Creatinine Urine Total Protein 02/14/19 08:36 WBC 40.7 H* RBC 2.28 L Hgb 7.3 L Hct 23.2 L MCV 101 H MCH RDW 16.1 H Seg Neuts % (Manual) Lymphocytes % (Manual) Nucleated RBC % Seg Neutrophils # Man Lymphocytes # (Manual) PT INR POC ABG pH POC ABG pCO2 POC ABG pO2 Sodium Potassium Chloride Carbon Dioxide BUN Creatinine Glucose POC Glucose Hemoglobin A1c Calcium Total Bilirubin Ammonia Total Creatine Kinase Troponin T Total Protein Albumin Cholesterol LDL Cholesterol Direct HDL Cholesterol TSH Urine WBC (Auto) Urine Creatinine Urine Total Protein Allied health notes reviewed: nursing
--- NOTE | 2019-02-14 12:25 | Progress Note ---
Assessment and Plan Cultures: Blood culture 02/10/2019 no growth so far Urine culture 02/09/2019 negative. Assessment: 68 y/o female with history of morbid obesity, asthma/COPD, CHF admitted from home on 02/09/2019 due to one week of altered mental status and weakness, she was treated for a "lung infection" at home started 2 days ago: 1) Severe sepsis with septic shock: off levophed today, worsening leukocytosis now 40K; etiology likely UTI and possible pneumonia +/- JESÚS now on HD. 2) Presumed pneumonia: CAP vs aspiration, CXR x 2 negative, patient is morbidly obese, ? aspiration. patient started on outpatient abx for a lung infection. Influenza Ag/ PCR negative. repeat CXR x 3 no consolidation 3) UTI: initial Ua with 32 wbc and moderate LE. Urine cx no growth 4) AMS: likely due to sepsis/hypoglycemia/high ammonia. Improving 5) JESÚS s/p urgent HD - improving Recs: obtain CT abd/pelvis with oral contrast only to eval intra-abdominal source of sepsis continue cefepime renally adjusted add metronidazole and fluconazole to cover intra-abdominal source stop vancomycin and levaquin Will follow. Thanks for consultation Becca Jimenez MD Infectious Diseases [employer] [facility] M [phone] O [phone] Subjective Date of service: 02/14/19 Principal diagnosis: Ac. hypercapnic resp. failure; Severe Sepsis with Shock; JESÚS on CKD; AUDI Interval history: Sleepy today, easily arausable, follows commands, talking on NC O2, no fever last 24h Objective - Exam Narrative Exam: Constitutional: alert talking. No acute distress on NC O2 morbidly obese Head, Ears, Nose: Normocephalic, atraumatic. External ears, nose normal Eyes: Conjunctivae/corneas clear. No icterus. No ptosis. Neck: Supple, no meningeal signs Oral: limited Cardiovascular: S1, S2 normal. Respiratory: distant BS GI: Soft, +massive pannus difficult exam Musculoskeletal:+silvio leg edema. Rectal exam +copious crystal jelly substance Skin: No rash or abscess Hem/Lymphatic: No palpable cervical or supraclavicular nodes. No lymphangitis Psych: no agitated Neurological: alert follows commands +right fem cath - Constitutional Vitals: Vital Signs Temp Pulse Resp BP Pulse Ox 98.2 F 78 11 L 120/64 98 02/14/19 12:00 02/14/19 11:00 02/14/19 11:00 02/14/19 11:00 02/14/19 11:00 Temperature -Last 24 Hours Temperature 98.2 F Temperature 98.7 F Temperature 99.8 F Temperature 99.8 F Temperature 99.0 F Temperature 99.7 F Temperature 97.6 F - Labs CBC & Chem 7: 02/14/19 08:36 02/14/19 05:27 Labs: Abnormal lab results 02/13/19 02/13/19 02/13/19 Range/Units 12:02 17:21 23:40 WBC (4.5-11.0) K/mm3 RBC (3.65-5.03) M/mm3 Hgb (10.1-14.3) gm/dl Hct (30.3-42.9) % MCV (79-97) fl RDW (13.2-15.2) % Carbon Dioxide (22-30) mmol/L BUN (7-17) mg/dL Creatinine (0.7-1.2) mg/dL Glucose (65-100) mg/dL POC Glucose 318 H 342 H 338 H (70-105) 02/14/19 02/14/19 02/14/19 Range/Units 05:27 05:54 08:36 WBC 40.7 H* (4.5-11.0) K/mm3 RBC 2.28 L (3.65-5.03) M/mm3 Hgb 7.3 L (10.1-14.3) gm/dl Hct 23.2 L (30.3-42.9) % MCV 101 H (79-97) fl RDW 16.1 H (13.2-15.2) % Carbon Dioxide 17 L (22-30) mmol/L BUN 65 H (7-17) mg/dL Creatinine 3.6 H (0.7-1.2) mg/dL Glucose 286 H (65-100) mg/dL POC Glucose 253 H (70-105) 02/14/19 Range/Units 11:59 WBC (4.5-11.0) K/mm3 RBC (3.65-5.03) M/mm3 Hgb (10.1-14.3) gm/dl Hct (30.3-42.9) % MCV (79-97) fl RDW (13.2-15.2) % Carbon Dioxide (22-30) mmol/L BUN (7-17) mg/dL Creatinine (0.7-1.2) mg/dL Glucose (65-100) mg/dL POC Glucose 253 H (70-105)
[2019-02-14] MEDS: INSULIN GLARGINE 100 UNITS/ML SUB-Q SCH (13:30)
[2019-02-14] MEDS: FLUCONAZOLE 200 MG 200 MG/100 ML BAG IV SCH (13:40)
--- NOTE | 2019-02-14 14:46 | Progress Note ---
Assessment and Plan Assessment and plan: Patient is a 68 yo AA woman with a history of morbid obesity, asthma/COPD, DM type 2, hypertension, CHF, advance Dementia, CKD 4 and AUDI on cpap, who presented from home to [facility] on 02/09/2019 due to altered mental status and weakness. She was treated for a "lung infection" at home 2 days ago prior to arrival. * CTH neg * Renal US neg * Cultures: Blood culture 02/10/2019 no growth so far and Urine culture 02/09/2019 negative. * CT chest without contrast IMPRESSION: Low lung volumes with patchy bibasilar density that appears most consistent with subsegmental atelectasis. No convincing evidence of pneumonia. No pericardial or pleural effusion. Extremely high WBC and increasing ID following, ordered CT abd/pelvis JESÚS/CKD 4, suspected due to ATN -Sp Vas cath , started on urgent HD on 02/10, cont HD per Lubricating Specialist -sp calcium, albuterol, and insulin and D50w renal u/s neg hold padmini Severe sepsis with septic shock, poa: triate off the 2mcg levophed IV gtt etiology likely UTI ID is following continue IV abx discontinue tamiflu because flu negative try to wean off Vasopressor, given more fluid, complex decision as makes volume overload difficult Acute metabolic encephalopathy Most likely due to uremia, should improve with dialysis, BUN still elevated to the at 60 Acute hypoxic resp failure most likely due to volume overload, treated by Ultrafiltration with HD now off bipap, doing well on NC, Pulmonology consult appreciated DM with hypoglycemia episodes resolved, a1c 8.5 received Sulfonylureas 02/09, treat with d10 drip hold Dm meds continue SSI lynch was dc on 02/11 DVT ppx- heparin sq Disposition: continue ICU care, trying to wean off levophed History Interval history: Patient was seen and examined. Follow-up on current diagnosis Respiratory failure. No overnight events reported to me. Patient denies any chest pain, shortness breath. Imaging, nursing note, chart, labs and old chart reviewed. Discussed with patient. Hospitalist Physical - Physical exam Narrative exam: Gen: morbid obese, bmi 62.1, NAD, Awake, Alert, Orientated x 1 HEENT: NCAT, EOMI, PERRL, OP Clear Neck: supple, no adenopathy, no thyromegaly, no JVD CVS/Heart: RRR, normal S1S2, pulses present bilaterally Chest/Lungs: diminished bs bilateral, Symmetrical chest expansion, adequate air entry bilaterally GI/Abdomen: soft, NTND, good bowel sounds, no guarding or rebound /Bladder: no suprapubic tenderness, no CVA or paraspinal tenderness Extermity/Skin: no c/c/e, no obvious rash MSK: FROM x 4 Neuro: CN 2-12 grossly intact, no new focal deficits Psych: calm but confused - Constitutional Vitals: Temp Pulse Resp BP Pulse Ox 98.2 F 76 18 111/63 97 02/14/19 12:15 02/14/19 14:30 02/14/19 14:30 02/14/19 14:30 02/14/19 14:30 General appearance: Present: no acute distress, well-nourished Results - Labs CBC & Chem 7: 02/14/19 08:36 02/14/19 05:27 Labs: Laboratory Last Values WBC 40.7 K/mm3 (4.5-11.0) H* 02/14/19 08:36 RBC 2.28 M/mm3 (3.65-5.03) L 02/14/19 08:36 Hgb 7.3 gm/dl (10.1-14.3) L 02/14/19 08:36 Hct 23.2 % (30.3-42.9) L 02/14/19 08:36 MCV 101 fl (79-97) H 02/14/19 08:36 MCH 32 pg (28-32) 02/14/19 08:36 MCHC 32 % (30-34) 02/14/19 08:36 RDW 16.1 % (13.2-15.2) H 02/14/19 08:36 Plt Count 171 K/mm3 (140-440) 02/14/19 08:36 Lymph % (Auto) Time Clerk 02/10/19 09:28 [place] % (Auto) Time Clerk 02/10/19 09:28 Eos % (Auto) Time Clerk 02/10/19 09:28 Baso % (Auto) Time Clerk 02/10/19 09:28 Lymph # Time Clerk 02/10/19 09:28 [place] # Time Clerk 02/10/19 09:28 Eos # Time Clerk 02/10/19 09:28 Baso # Time Clerk 02/10/19 09:28 Add Manual Diff Complete 02/13/19 05:12 Total Counted 100 02/13/19 05:12 Seg Neutrophils % Time Clerk 02/13/19 05:12 Seg Neuts % (Manual) 92.0 % (40.0-70.0) H 02/13/19 05:12 Band Neutrophils % 1.0 % 02/13/19 05:12 Lymphocytes % (Manual) 3.0 % (13.4-35.0) L 02/13/19 05:12 Reactive Lymphs % (Man) 0 % 02/13/19 05:12 Monocytes % (Manual) 1.0 % (0.0-7.3) 02/13/19 05:12 Eosinophils % (Manual) 0 % (0.0-4.3) 02/13/19 05:12 Basophils % (Manual) 0 % (0.0-1.8) 02/13/19 05:12 Metamyelocytes % 3.0 % 02/13/19 05:12 Myelocytes % 0 % 02/13/19 05:12 Promyelocytes % 0 % 02/13/19 05:12 Blast Cells % 0 % 02/13/19 05:12 Nucleated RBC % 1.0 % (0.0-0.9) H 02/13/19 05:12 Seg Neutrophils # Time Clerk 02/10/19 09:28 Seg Neutrophils # Man 29.8 K/mm3 (1.8-7.7) H 02/13/19 05:12 Band Neutrophils # 0.3 K/mm3 02/13/19 05:12 Lymphocytes # (Manual) 1.0 K/mm3 (1.2-5.4) L 02/13/19 05:12 Abs React Lymphs (Man) 0.0 K/mm3 02/13/19 05:12 Monocytes # (Manual) 0.3 K/mm3 (0.0-0.8) 02/13/19 05:12 Eosinophils # (Manual) 0.0 K/mm3 (0.0-0.4) 02/13/19 05:12 Basophils # (Manual) 0.0 K/mm3 (0.0-0.1) 02/13/19 05:12 Metamyelocytes # 1.0 K/mm3 02/13/19 05:12 Myelocytes # 0.0 K/mm3 02/13/19 05:12 Promyelocytes # 0.0 K/mm3 02/13/19 05:12 Blast Cells # 0.0 K/mm3 02/13/19 05:12 WBC Morphology Not Reportable 02/13/19 05:12 Hypersegmented Neuts Not Reportable 02/13/19 05:12 Hyposegmented Neuts Not Reportable 02/13/19 05:12 Hypogranular Neuts Not Reportable 02/13/19 05:12 Smudge Cells Not Reportable 02/13/19 05:12 Toxic Granulation Not Reportable 02/13/19 05:12 Toxic Vacuolation Not Reportable 02/13/19 05:12 Dohle Bodies Few 02/13/19 05:12 Pelger-Huet Anomaly Not Reportable 02/13/19 05:12 Casey Rods Not Reportable 02/13/19 05:12 Platelet Estimate Consistent w auto 02/13/19 05:12 Clumped Platelets Not Reportable 02/13/19 05:12 Plt Clumps, EDTA Not Reportable 02/13/19 05:12 Large Platelets Not Reportable 02/13/19 05:12 Giant Platelets Not Reportable 02/13/19 05:12 Platelet Satelliting Not Reportable 02/13/19 05:12 Plt Morphology Comment Not Reportable 02/13/19 05:12 RBC Morphology Not Reportable 02/13/19 05:12 Dimorphic RBCs Not Reportable 02/13/19 05:12 Polychromasia Rare 02/13/19 05:12 Hypochromasia Not Reportable 02/13/19 05:12 Poikilocytosis Not Reportable 02/13/19 05:12 Anisocytosis Not Reportable 02/13/19 05:12 Microcytosis Not Reportable 02/13/19 05:12 Macrocytosis Not Reportable 02/13/19 05:12 Spherocytes Not Reportable 02/13/19 05:12 Pappenheimer Bodies Not Reportable 02/13/19 05:12 Sickle Cells Not Reportable 02/13/19 05:12 Target Cells Few 02/13/19 05:12 Tear Drop Cells Not Reportable 02/13/19 05:12 Ovalocytes Not Reportable 02/13/19 05:12 Helmet Cells Not Reportable 02/13/19 05:12 [place] Bodies Not Reportable 02/13/19 05:12 [place] Rings Not Reportable 02/13/19 05:12 Karina Cells Not Reportable 02/13/19 05:12 Bite Cells Not Reportable 02/13/19 05:12 Crenated Cell Not Reportable 02/13/19 05:12 Elliptocytes Not Reportable 02/13/19 05:12 Acanthocytes (Spur) Not Reportable 02/13/19 05:12 Rouleaux Not Reportable 02/13/19 05:12 Hemoglobin C Crystals Not Reportable 02/13/19 05:12 Schistocytes Not Reportable 02/13/19 05:12 Malaria parasites Not Reportable 02/13/19 05:12 Emanuel Bodies Not Reportable 02/13/19 05:12 Hem Pathologist Commnt No 02/13/19 05:12 PT 17.8 Sec. (12.2-14.9) H 02/09/19 09:16 INR 1.49 (0.87-1.13) H 02/09/19 09:16 APTT 36.0 Sec. (24.2-36.6) 02/09/19 09:16 POC ABG pH 7.337 (7.35-7.45) L 02/13/19 09:52 POC ABG pCO2 43.2 (35-45) 02/13/19 09:52 POC ABG pO2 100 (80-105) 02/13/19 09:52 POC ABG HCO3 23.1 (22-26 mml/L) 02/13/19 09:52 POC ABG Total CO2 24 (23-27mmol/L) 02/13/19 09:52 POC ABG O2 Sat 97 02/13/19 09:52 POC ABG Base Excess -3 ((-2) - (+3)mmol/L) 02/13/19 09:52 FiO2 32 % 02/13/19 09:52 Sodium 139 mmol/L (137-145) 02/14/19 05:27 Potassium 3.8 mmol/L (3.6-5.0) 02/14/19 05:27 Chloride 99.4 mmol/L (98-107) 02/14/19 05:27 Carbon Dioxide 17 mmol/L (22-30) L 02/14/19 05:27 Anion Gap 26 mmol/L 02/14/19 05:27 BUN 65 mg/dL (7-17) H 02/14/19 05:27 Creatinine 3.6 mg/dL (0.7-1.2) H 02/14/19 05:27 Estimated GFR 15 ml/min 02/14/19 05:27 BUN/Creatinine Ratio 18 % 02/14/19 05:27 Glucose 286 mg/dL (65-100) H 02/14/19 05:27 POC Glucose 253 (70-105) H 02/14/19 11:59 Hemoglobin A1c 8.5 % (4-6) H 02/09/19 23:24 Lactic Acid 1.90 mmol/L (0.7-2.0) 02/11/19 16:15 Calcium 8.5 mg/dL (8.4-10.2) 02/14/19 05:27 Phosphorus 4.10 mg/dL (2.5-4.5) 02/09/19 12:47 Total Bilirubin 3.10 mg/dL (0.1-1.2) H 02/10/19 06:39 AST 39 units/L (5-40) 02/10/19 06:39 ALT 12 units/L (7-56) 02/10/19 06:39 Alkaline Phosphatase 112 units/L (35-129) 02/10/19 06:39 Ammonia 61.0 umol/L (25-60) H 02/09/19 09:16 Total Creatine Kinase 264 units/L (30-135) H 02/09/19 09:16 CK-MB (CK-2) 2.1 ng/mL (0.0-4.0) 02/09/19 09:16 CK-MB (CK-2) Rel Index 0.7 (0-4) 02/09/19 09:16 Troponin T 0.073 ng/mL (0.00-0.029) H 02/09/19 09:16 Total Protein 8.3 g/dL (6.3-8.2) H 02/10/19 06:39 Albumin 2.4 g/dL (3.9-5) L 02/10/19 06:39 Albumin/Globulin Ratio 0.4 % 02/10/19 06:39 Triglycerides 65 mg/dL (2-149) 02/09/19 09:16 Cholesterol 47 mg/dL (50-199) L 02/09/19 09:16 LDL Cholesterol Direct 13 mg/dL (50-130) L 02/09/19 09:16 HDL Cholesterol 27 mg/dL (40-59) L 02/09/19 09:16 Cholesterol/HDL Ratio 1.74 % 02/09/19 09:16 Procalcitonin 11.74 ng/mL (<0.15) 02/11/19 16:15 TSH 5.570 mlU/mL (0.270-4.200) H 02/09/19 09:16 Free T4 0.85 ng/dL (0.76-1.46) 02/09/19 09:16 Urine Color [place] (Yellow) 02/09/19 14:30 Urine Turbidity Cloudy (Clear) 02/09/19 14:30 Urine pH 5.0 (5.0-7.0) 02/09/19 14:30 Ur Specific [place] 1.015 (1.003-1.030) 02/09/19 14:30 Urine Protein 30 mg/dl mg/dL (Negative) 02/09/19 14:30 Urine Glucose (UA) Neg mg/dL (Negative) 02/09/19 14:30 Urine Ketones Neg mg/dL (Negative) 02/09/19 14:30 Urine Blood Sm (Negative) 02/09/19 14:30 Urine Nitrite Neg (Negative) 02/09/19 14:30 Urine Bilirubin Neg (Negative) 02/09/19 14:30 Urine Urobilinogen < 2.0 mg/dL (<2.0) 02/09/19 14:30 Ur Leukocyte Esterase Mod (Negative) 02/09/19 14:30 Urine WBC (Auto) 32.0 /HPF (0.0-6.0) H 02/09/19 14:30 Urine RBC (Auto) 29.0 /HPF (0.0-6.0) 02/09/19 14:30 U Epithel Cells (Auto) 3.0 /HPF (0-13.0) 02/09/19 14:30 Urine Bacteria (Auto) 3+ /HPF (Negative) 02/09/19 14:30 Urine WBC Clumps 2+ /HPF 02/09/19 14:30 Urine Mucus Few /HPF 02/09/19 14:30 Urine Creatinine 162.4 mg/dL (0.1-20.0) H 02/09/19 14:30 Protein/Creatinin Ratio 0.30 02/09/19 14:30 Urine Sodium 38 mmol/L 02/09/19 14:30 Urine Total Protein 49 mg/dL (5-11.8) H 02/09/19 14:30 Nasal Screen MRSA (PCR) Negative (Negative) 02/12/19 Unknown Random Vancomycin 11.3 ug/mL (0-40.0) 02/12/19 05:35 Urine Opiates Screen Presumptive negative 02/09/19 14:30 Urine Methadone Screen Presumptive negative 02/09/19 14:30 Ur Barbiturates Screen Presumptive negative 02/09/19 14:30 Ur Phencyclidine Scrn Presumptive negative 02/09/19 14:30 Ur Amphetamines Screen Presumptive negative 02/09/19 14:30 U Benzodiazepines Scrn Presumptive negative 02/09/19 14:30 Urine Cocaine Screen Presumptive negative 02/09/19 14:30 U Marijuana (THC) Screen Presumptive negative 02/09/19 14:30 Drugs of Abuse Note Disclamer 02/09/19 14:30 Plasma/Serum Alcohol < 0.01 % (0-0.07) 02/09/19 09:16 Complement C3 123 mg/dL (83-193) 02/09/19 12:47 Complement C4 37 mg/dL (15-57) 02/09/19 12:47 Hepatitis A IgM Ab Non-reactive (NonReactive) 02/09/19 12:47 Hep Bs Antigen Non-reactive (Negative) 02/09/19 12:47 Hep B Core IgM Ab Non-reactive (NonReactive) 02/09/19 12:47 Hepatitis C Antibody Non-reactive (NonReactive) 02/09/19 12:47 Influenza A (Rapid) Negative (Negative) 02/12/19 Unknown Influenza A (RT-PCR) Negative (Negative) 02/12/19 Unknown Influenza B (Rapid) Negative (Negative) 02/12/19 Unknown Influenza B (RT-PCR) Negative (Negative) 02/12/19 Unknown Active Medications - Current Medications Current Medications: Generic Name Dose Route Start Last Admin Trade Name Freq PRN Reason Stop Dose Admin Acetaminophen 650 mg 02/09/19 22:59 Tylenol PO Q4H PRN Pain MILD(1-3)/Fever >100.5/ARREDONDO Albumin Human 25 gm 02/11/19 12:02 Alburx 25% (Albumin) IV TREVA PRN Hypotension Albuterol 1.25 mg 02/10/19 01:36 Proventil IH TIDRT PRN Shortness Of Breath Albuterol/Ipratropium 1 ampul 02/10/19 14:00 02/14/19 09:38 Duoneb *Not For Prn Use* IH 1 ampul Q6HRT YISEL Administration Dextrose 50 ml 02/13/19 18:56 D50w (25gm) Syringe IV Q30MIN PRN Hypoglycemia Protocol Famotidine 20 mg 02/14/19 10:00 02/14/19 09:23 Pepcid PO 20 mg DAILY YISEL Administration Gabapentin 800 mg 02/09/19 23:00 02/14/19 06:06 Gabapentin PO Not Given Q8HR YISEL Heparin Sodium (Porcine) 5,000 unit 02/10/19 22:00 02/14/19 09:11 Heparin SUB-Q 5,000 unit Q12HR YISEL Administration Hydromorphone HCl 0.25 mg 02/09/19 22:59 Dilaudid IV Q3H PRN Pain, Moderate (4-6) Cefepime HCl 1 gm in 100 mls @ 200 mls/hr 02/10/19 16:00 02/13/19 16:42 Cefepime/Ns 1 Gm/100 Ml IV 200 mls/hr Q24H YISEL Administration Sodium Chloride 100 mls @ 999 mls/hr 02/11/19 12:02 Nacl 0.9% IV TREVA PRN Hypotension Norepinephrine 4 mg in 250 mls @ 7.5 mls/hr 02/11/19 14:00 02/14/19 11:37 Levophed Drip 4 Mg/Ns 250 Ml IV 2 mcg/min TITR YISEL 7.5 mls/hr Titration Protocol 2 MCG/MIN Metronidazole 500 mg in 100 mls @ 100 mls/hr 02/14/19 14:00 Flagyl 500 Mg/100 Ml IV Q8HR YISEL Protocol Fluconazole 200 mg in 100 mls @ 100 mls/hr 02/14/19 13:00 Diflucan IV Q24HR YISEL Protocol Insulin Glargine 5 units 02/14/19 13:00 Lantus SUB-Q QAMDIAB YISEL Insulin Human Lispro 0 unit 02/13/19 19:00 02/14/19 12:08 Humalog SUB-Q 6 unit Q6HR YISEL Administration Protocol Ondansetron HCl 4 mg 02/09/19 22:59 Zofran IV Q8H PRN Nausea And Vomiting Oxycodone/Acetaminophen 1 tab 02/09/19 22:59 Percocet 5/325 PO Q6H PRN Pain, Moderate (4-6) Sodium Chloride 10 ml 02/10/19 10:00 02/14/19 09:14 Sodium Chloride Flush Syringe 10 Ml IV 10 ml BID YISEL Administration Sodium Chloride 10 ml 02/09/19 22:59 02/10/19 06:44 Sodium Chloride Flush Syringe 10 Ml IV 10 ml PRN PRN Administration LINE FLUSH Nutrition/Malnutrition Assess - Dietary Evaluation Nutrition/Malnutrition Findings: Nutrition Notes Start: 02/14/19 11:05 Freq: Status: Active Protocol: Document 02/14/19 11:05 CC (Rec: 02/14/19 11:26 CC [email or web address]) Co-Sign 02/14/19 11:05 LP Nutrition Notes Need for Assessment generated from: MD Order Initial or Follow up Assessment Current Diagnosis CKD(stage I-IV),Diabetes, Hypertension,Heart Failure, Respiratory Failure Other Pertinent Diagnosis HD, asthma Current Diet mechanical soft Labs/Tests BUN 65 Creat 3.6 A1c 8.5 Pertinent Medications Levophed Height 5 ft 4 in Weight 168 kg [place] Body Weight (kg) 54.54 BMI 63.6 Weight Status Morbidly Obese Subjective/Other Information Screen for poor oral intake. Pt unable to answer all question and pt son at bedside helped to answer some questions. Pt reported he appetite has been okay. Pt reported she has unitentionally lost weight but was unable to answer how much or when she lost this wt. Per pt son pt has not been eating much while in hospital. Pt shook her head yes when asked is she would like an ONS. Noted her diet has been changed to pureed diet Burn Absent Trauma Absent Food Allergy No Current % PO Poor (25-49%) Minimum of two criteria No physical signs of malnutrition #1 Nutrition Diagnosis Inadequate oral intake Etiology AMS As Evidenced by Signs and Symptoms less than 50% of meals consumed, diet order change to pureed Is patient on ventilator? No Is Patient Ambulatory and/or Out of Bed No REE-(Isabela-St. Jeor-confined to bed) 2638.512 Kcal/Kg value to use for calculation 12 Approximate Energy Requirements Using 2016 kcal/Kg Calculation Used for Recommendations Kcal/kg Additional Notes PRO: 111-133g/day (1.0-1.2g/kg AdBW 111kg) Fluid: 1ml/kcal or per MD Nutrition Intervention Change Diet Order: pureed Add Supplement/Snack (indicate name/kcal Ensure High Protein once daily /protein ) Provides kCal: 160 Provides Protein (gm) 16 Goal #1 Meet at least 80% of energy and protein needs via PO and ONS intakes Anticipated Discharge Needs: unknown at this time Follow-Up By: 02/16/19 Additional Comments F/U for PO and ONS intakes
--- NOTE | 2019-02-14 15:47 | Progress Note ---
Assessment and Plan - Patient Problems (1) JESÚS (acute kidney injury) Current Visit: Yes Status: Acute Plan to address problem: Acute kidney injury on chronic kidney disease Baseline creatinine 1.6 in 2017 Admission creatinine of 7 with hyperkalemia will continue dialysis We will plan to repeat his dialysis on tuesday for VOLUME OVERLOAD Reviewed urinalysis numerous red and white cells creatinine still rising. Please place lynch as ultrasound showed urine in bladder. Strict in and output (2) Hyperkalemia Current Visit: Yes Status: Acute Plan to address problem: Hyperkalemia resolved continue dialysis (3) Diabetes Current Visit: No Status: Acute Plan to address problem: Diabetes mellitus type 2 Continue medications (4) Acute encephalopathy Current Visit: Yes Status: Acute Plan to address problem: Encephalopathy: much improved. continue hemodialysis. Subjective Principal diagnosis: Ac. hypercapnic resp. failure; Severe Sepsis with Shock; JESÚS on CKD; AUDI Interval history: 68 year old female with medical history significant for altered mental status , acute kidney injury ,hypoglycemia , baseline creatinine of 1.6mg/dl in 2017 admitted with hyperkalemia and Acute kidney injury Patient now on nasal cannula family updated on plan of care. has femoral vas cath. I attest I saw the patient on dialysis Objective - Vital Signs Vital signs: Vital Signs - 12hr 02/14/19 02/14/19 02/14/19 03:45 03:52 04:00 Temperature 99.8 F H Pulse Rate 75 75 Pulse Rate [ Anterior Bilateral Throughout] Pulse Rate [ 74 From Monitor] Respiratory 20 22 Rate Respiratory Rate [Anterior Bilateral Throughout] Blood Pressure 92/56 98/55 O2 Sat by Pulse 100 Oximetry 02/14/19 02/14/19 02/14/19 04:15 04:30 04:45 Temperature Pulse Rate 76 74 74 Pulse Rate [ Anterior Bilateral Throughout] Pulse Rate [ From Monitor] Respiratory 18 17 18 Rate Respiratory Rate [Anterior Bilateral Throughout] Blood Pressure 111/60 103/58 107/56 O2 Sat by Pulse 97 Oximetry 02/14/19 02/14/19 02/14/19 05:00 05:16 05:30 Temperature Pulse Rate 76 75 74 Pulse Rate [ Anterior Bilateral Throughout] Pulse Rate [ From Monitor] Respiratory 11 L 27 H 17 Rate Respiratory Rate [Anterior Bilateral Throughout] Blood Pressure 111/61 111/61 121/68 O2 Sat by Pulse 97 Oximetry 02/14/19 02/14/19 02/14/19 05:45 06:00 06:15 Temperature 99.8 F H Pulse Rate 73 72 80 Pulse Rate [ Anterior Bilateral Throughout] Pulse Rate [ From Monitor] Respiratory 20 23 23 Rate Respiratory Rate [Anterior Bilateral Throughout] Blood Pressure 126/70 120/67 134/65 O2 Sat by Pulse 96 98 97 Oximetry 02/14/19 02/14/19 02/14/19 06:30 06:45 07:00 Temperature Pulse Rate 71 71 70 Pulse Rate [ Anterior Bilateral Throughout] Pulse Rate [ From Monitor] Respiratory 22 20 16 Rate Respiratory Rate [Anterior Bilateral Throughout] Blood Pressure 136/67 123/62 131/67 O2 Sat by Pulse 96 96 98 Oximetry 02/14/19 02/14/19 02/14/19 07:15 07:30 07:45 Temperature Pulse Rate 71 72 73 Pulse Rate [ Anterior Bilateral Throughout] Pulse Rate [ From Monitor] Respiratory 19 19 13 Rate Respiratory Rate [Anterior Bilateral Throughout] Blood Pressure 112/46 124/56 121/59 O2 Sat by Pulse 96 97 98 Oximetry 02/14/19 02/14/19 02/14/19 08:00 08:15 08:30 Temperature Pulse Rate 72 74 74 Pulse Rate [ Anterior Bilateral Throughout] Pulse Rate [ 74 From Monitor] Respiratory 21 17 20 Rate Respiratory Rate [Anterior Bilateral Throughout] Blood Pressure 113/52 122/57 112/50 O2 Sat by Pulse 97 99 97 Oximetry 02/14/19 02/14/19 02/14/19 08:45 09:00 09:15 Temperature Pulse Rate 70 72 75 Pulse Rate [ Anterior Bilateral Throughout] Pulse Rate [ From Monitor] Respiratory 20 20 20 Rate Respiratory Rate [Anterior Bilateral Throughout] Blood Pressure 107/54 101/51 118/64 O2 Sat by Pulse 92 95 97 Oximetry 02/14/19 02/14/19 02/14/19 09:30 09:38 09:39 Temperature Pulse Rate 75 Pulse Rate [ 74 Anterior Bilateral Throughout] Pulse Rate [ From Monitor] Respiratory 23 Rate Respiratory 18 Rate [Anterior Bilateral Throughout] Blood Pressure 118/69 O2 Sat by Pulse 94 95 Oximetry 02/14/19 02/14/19 02/14/19 09:45 10:00 10:15 Temperature 98.7 F Pulse Rate 74 76 75 Pulse Rate [ Anterior Bilateral Throughout] Pulse Rate [ From Monitor] Respiratory 21 19 23 Rate Respiratory Rate [Anterior Bilateral Throughout] Blood Pressure 120/67 128/63 126/66 O2 Sat by Pulse 95 96 94 Oximetry 02/14/19 02/14/19 02/14/19 10:30 10:45 11:00 Temperature Pulse Rate 77 77 78 Pulse Rate [ Anterior Bilateral Throughout] Pulse Rate [ From Monitor] Respiratory 15 21 11 L Rate Respiratory Rate [Anterior Bilateral Throughout] Blood Pressure 120/66 120/64 120/64 O2 Sat by Pulse 95 95 98 Oximetry 02/14/19 02/14/19 02/14/19 11:15 11:30 11:45 Temperature Pulse Rate 77 75 77 Pulse Rate [ Anterior Bilateral Throughout] Pulse Rate [ From Monitor] Respiratory 18 21 16 Rate Respiratory Rate [Anterior Bilateral Throughout] Blood Pressure 114/43 114/43 86/44 O2 Sat by Pulse 97 98 97 Oximetry 02/14/19 02/14/19 02/14/19 12:00 12:15 12:30 Temperature 98.2 F 98.2 F Pulse Rate 75 77 76 Pulse Rate [ Anterior Bilateral Throughout] Pulse Rate [ 76 From Monitor] Respiratory 13 21 21 Rate Respiratory Rate [Anterior Bilateral Throughout] Blood Pressure 134/82 134/79 131/71 O2 Sat by Pulse 96 97 95 Oximetry 02/14/19 02/14/19 02/14/19 12:45 13:00 13:15 Temperature Pulse Rate 78 75 74 Pulse Rate [ Anterior Bilateral Throughout] Pulse Rate [ From Monitor] Respiratory 19 22 15 Rate Respiratory Rate [Anterior Bilateral Throughout] Blood Pressure 114/69 124/68 117/67 O2 Sat by Pulse 98 96 Oximetry 02/14/19 02/14/19 02/14/19 13:30 13:45 14:00 Temperature Pulse Rate 70 71 74 Pulse Rate [ Anterior Bilateral Throughout] Pulse Rate [ From Monitor] Respiratory 19 18 14 Rate Respiratory Rate [Anterior Bilateral Throughout] Blood Pressure 111/65 116/66 106/63 O2 Sat by Pulse 98 98 97 Oximetry 02/14/19 02/14/19 02/14/19 14:15 14:30 14:45 Temperature Pulse Rate 69 76 88 Pulse Rate [ Anterior Bilateral Throughout] Pulse Rate [ From Monitor] Respiratory 15 18 Rate Respiratory Rate [Anterior Bilateral Throughout] Blood Pressure 112/61 111/63 113/72 O2 Sat by Pulse 98 97 Oximetry 02/14/19 15:00 Temperature Pulse Rate 75 Pulse Rate [ Anterior Bilateral Throughout] Pulse Rate [ From Monitor] Respiratory Rate Respiratory Rate [Anterior Bilateral Throughout] Blood Pressure 116/75 O2 Sat by Pulse Oximetry - General Appearance General appearance: well-developed, well-nourished EENT: ATNC, PERRL Neck: no JVD Respiratory: Present: Decreased Breath Sounds Cardiology: regular, S1S2 Gastrointestinal: normal, normoactive bowel sounds Integumentary: no rash Neurologic: alert and oriented x3, CN 3-12 intact Psychiatric: mood/affect appropriate - Lab 02/14/19 08:36 02/14/19 05:27 Most recent lab results Calcium 8.5 mg/dL (8.4-10.2) 02/14/19 05:27 Phosphorus 4.10 mg/dL (2.5-4.5) 02/09/19 12:47 Urine Creatinine 162.4 mg/dL (0.1-20.0) H 02/09/19 14:30 Urine Sodium 38 mmol/L 02/09/19 14:30 Urine Total Protein 49 mg/dL (5-11.8) H 02/09/19 14:30 - Imaging Chest x-ray: image reviewed (reviewed cxr with edema. ) Medications & Allergies - Medications Allergies/Adverse Reactions: Allergies No Known Allergies Allergy (Verified 06/21/16 01:02) Home Medications: Home Medications Medication Instructions Recorded Confirmed Last Taken Type Fluticasone [Flonase] 50 mcg IH Q4-6H PRN 06/21/16 02/10/19 Unknown History Gabapentin [Neurontin] 800 mg PO Q8H 06/21/16 02/10/19 06/19/16 History Glimepiride [Amaryl] 2 mg PO QAM 06/21/16 02/10/19 06/20/16 History Insulin Glargine,Hum.rec.anlog 100 units SUB-Q QHS 06/21/16 02/10/19 06/19/16 History [Lantus Solostar] Lisinopril [Zestril TAB] 40 mg PO QDAY 06/21/16 02/10/19 06/20/16 History Metformin HCl [Metformin HCl ER] 500 mg PO BID 06/21/16 02/10/19 06/20/16 History amLODIPine [Norvasc] 5 mg PO DAILY 06/21/16 02/10/19 06/20/16 History Albuterol Sulfate [Albuterol 0.63% 0.63 mg IH TID PRN #1 box 06/22/16 02/10/19 Unknown Rx NEBS] Azithromycin [Zithromax TAB] 250 mg PO QDAY #6 tablet 06/22/16 02/10/19 Unknown Rx Benzonatate [Tessalon Perles] 100 mg PO Q8HR #30 capsule 06/22/16 02/10/19 Unknown Rx Ipratropium [Atrovent NEB] 0.5 mg IH Q8HRT #1 box 06/22/16 02/10/19 Unknown Rx Nebulizer and Compressor 1 each MC DAILY PRN #1 each 06/22/16 02/10/19 Unknown Rx [Devilbiss Pulmoneb Lt Comp-Neb] Prednisone [predniSONE 10 mg 10 mg PO .TAPER #1 tab.ds.pk 06/22/16 02/10/19 Unknown Rx (6-Day Pack, 21 Tabs)] Active Medications: Generic Name Dose Route Start Last Admin Trade Name Freq PRN Reason Stop Dose Admin Acetaminophen 650 mg 02/09/19 22:59 Tylenol PO Q4H PRN Pain MILD(1-3)/Fever >100.5/ARREDONDO Albumin Human 25 gm 02/11/19 12:02 Alburx 25% (Albumin) IV TREVA PRN Hypotension Albuterol 1.25 mg 02/10/19 01:36 Proventil IH TIDRT PRN Shortness Of Breath Albuterol/Ipratropium 1 ampul 02/10/19 14:00 02/14/19 14:51 Duoneb *Not For Prn Use* IH Not Given Q6HRT YISEL Dextrose 50 ml 02/13/19 18:56 D50w (25gm) Syringe IV Q30MIN PRN Hypoglycemia Protocol Famotidine 20 mg 02/14/19 10:00 02/14/19 09:23 Pepcid PO 20 mg DAILY YISEL Administration Gabapentin 800 mg 02/09/19 23:00 02/14/19 06:06 Gabapentin PO Not Given Q8HR YISEL Heparin Sodium (Porcine) 5,000 unit 02/10/19 22:00 02/14/19 09:11 Heparin SUB-Q 5,000 unit Q12HR YISEL Administration Hydromorphone HCl 0.25 mg 02/09/19 22:59 Dilaudid IV Q3H PRN Pain, Moderate (4-6) Cefepime HCl 1 gm in 100 mls @ 200 mls/hr 02/10/19 16:00 02/13/19 16:42 Cefepime/Ns 1 Gm/100 Ml IV 200 mls/hr Q24H YISEL Administration Sodium Chloride 100 mls @ 999 mls/hr 02/11/19 12:02 Nacl 0.9% IV TREVA PRN Hypotension Norepinephrine 4 mg in 250 mls @ 7.5 mls/hr 02/11/19 14:00 02/14/19 11:37 Levophed Drip 4 Mg/Ns 250 Ml IV 2 mcg/min TITR YISEL 7.5 mls/hr Titration Protocol 2 MCG/MIN Metronidazole 500 mg in 100 mls @ 100 mls/hr 02/14/19 14:00 Flagyl 500 Mg/100 Ml IV Q8HR YISEL Protocol Fluconazole 200 mg in 100 mls @ 100 mls/hr 02/14/19 13:00 Diflucan IV Q24HR YISEL Protocol Insulin Glargine 5 units 02/14/19 13:00 Lantus SUB-Q QAMDIAB YISEL Insulin Human Lispro 0 unit 02/13/19 19:00 02/14/19 12:08 Humalog SUB-Q 6 unit Q6HR YISEL Administration Protocol Ondansetron HCl 4 mg 02/09/19 22:59 Zofran IV Q8H PRN Nausea And Vomiting Oxycodone/Acetaminophen 1 tab 02/09/19 22:59 Percocet 5/325 PO Q6H PRN Pain, Moderate (4-6) Sodium Chloride 10 ml 02/10/19 10:00 02/14/19 09:14 Sodium Chloride Flush Syringe 10 Ml IV 10 ml BID YISEL Administration Sodium Chloride 10 ml 02/09/19 22:59 02/10/19 06:44 Sodium Chloride Flush Syringe 10 Ml IV 10 ml PRN PRN Administration LINE FLUSH
[2019-02-14] MEDS: metroNIDAZOLE/NS 500 MG/100 ML 500 MG/100 ML BAG IV SCH (18:00)
[2019-02-14 18:23] LABS: ABG Base Excess -0.5 mmol/L (-2.0-3.0); ABG HCO3 24.8 mmol/L (20.0-26.0); ABG Methemoglobin 0.3 % (0.0-1.5); ABG Oxygen Saturation 96.7 % (95.0-99.0); ABG PCO2 44.1 mm Hg; ABG PH 7.368 pH Units (7.350-7.450); ABG PO2 86.4 mm Hg (80.0-90.0)
[2019-02-14 18:48] LABS: Abnormal Protein Band 1 2.7 g/dL; Abnormal Protein Band 2 0.3 g/dL; Albumin 2.4 g/dL (3.8-4.8); Gamma Globulin 0.7 g/dL (0.8-1.7)
[2019-02-14] MEDS: CEFEPIME/NS 1 GM/100 ML 1 GM/100 ML BAG IV SCH (19:06)
[2019-02-15] MEDS: INSULIN LISPRO 100 UNIT/ML SUB-Q SCH ×4 (00:18→20:28)
[2019-02-15] MEDS: metroNIDAZOLE/NS 500 MG/100 ML 500 MG/100 ML BAG IV SCH ×2 (00:19→05:22)
[2019-02-15] MEDS: IPRATROPIUM/ALBUTEROL SULFATE 3 ML AMPUL.NEB IH SCH ×4 (01:38→20:19)
[2019-02-15] MEDS: NORepinephrine/NS 4 MG-250 ML 4 MG/250 ML BAG IV SCH ×2 (02:33→20:15)
[2019-02-15] MEDS: GABAPENTIN 400 MG CAP PO SCH ×3 (05:28→21:16)
[2019-02-15 06:28] LABS: Calcium 8.3 mg/dL (8.4-10.2)
[2019-02-15 08:16] LABS: Hematocrit 22.4 % (30.3-42.9); Hemoglobin 7.1 gm/dl (10.1-14.3); Mean Corpuscular HGB Conc 32 % (30-34); Mean Corpuscular Volume 102 fl (79-97); Platelet Count 138 K/mm3 (140-440)
[2019-02-15] MEDS: INSULIN GLARGINE 100 UNITS/ML SUB-Q SCH (08:51)
--- NOTE | 2019-02-15 10:07 | Progress Note ---
Assessment and Plan Acute hypercapnic respiratory failure on BIPAP Acute toxic-metabolic encephalopathy Severe Sepsis with septic shock- fevers, leukocytosis, hypotension, encephalopathy JESÚS on CKD requiring HD Extreme obesity AUDI on PAP at home Necrotizing fascitiis, left thigh on imaging - Wean vasopressor support for MAP>65, currently on norepinephrine -Give a fluid bolus now, volume resuscitate -Aspiration precautions, HOB>40 degrees -Supplemental O2 to keep O2 sats 88-90% -Oxygen restrictive strategies -Empiric antibiotics per ID -Place on contact isolation -VTE prophylaxis ( SCDs), trend platelet counts and monitor for bleeding -Stress ulcer prophylaxis - Accuchecks with glycemic control for SSI (While critically ill target blood glucose of 140-180 mg/dL; avoid hypoglycemia) Was started on long actin insulin yesterday, glycemic control is suboptimal- needs a steady carb diet. Discussed with RD during rounds - Continue mobility protocol for pressure ulcer prevention - Monitor hemodynamics closely -Monitor electrolyte profile closely and replete as indicated -Avoid nephrotoxins and renally dose all medications -For OR- she is to return to ICU intubated overnight per discussions with the surgeon. Will management MVS and further orders will be after she gets back from the OR CONDITION: CRITICAL PROGNOSIS: GUARDED CODE STATUS: FULL CODE The high probability of a clinically significant, sudden or life-threatening de terioration of the [respiratory,renal neurology] system(s) required my full and direct attention, intervention and personal management. The aggregate critical care time was [35] minutes without overlap. Time includes spent on; [x] Data Review and interpretation [x] Patient assessment and monitoring of vital signs [x] Documentation [x] Medication orders and managementt Subjective Date of service: 02/15/19 Principal diagnosis: Ac. hypercapnic resp. failure; Severe Sepsis with Shock; JESÚS on CKD; AUDI Interval history: Patient is seen today for: Acute hypercapnic respiratory failure; Acute toxic- metabolic encephalopathy; Severe Sepsis with Shock ; JESÚS on CKD requiring Hemodialysis; Extreme obesity; AUDI/OHS Seen and examined at bedside; 24hour events reviewed; nursing and respiratory care staff consulted; no adverse overnight events reported to me; resting peacefully in bed; on NIPPV, for OR this afternoon for Nec fasc seen on CT abdomen and pelvis- done this afternoon, discussed with Surgeon- patient will return intubated. CTabdomen and pelvis was done this afternoon for worsening leukocytosis, continues to need vasopressor support, remains hypotensive. s/p HD yesterday, 3L of fluid removed. On Cefepime, Fluconazole and metronidazole. Antibiotics were changed by ID based on new findings of Nec fasc. Objective Vital Signs - 12hr 02/14/19 02/14/19 02/14/19 22:15 22:30 22:45 Temperature Pulse Rate 86 72 73 Pulse Rate [ Anterior Bilateral Throughout] Pulse Rate [ From Monitor] Respiratory 18 23 19 Rate Respiratory Rate [Anterior Bilateral Throughout] Blood Pressure 106/55 111/56 113/55 O2 Sat by Pulse 97 95 95 Oximetry 02/14/19 02/14/19 02/14/19 23:00 23:15 23:30 Temperature Pulse Rate 75 73 76 Pulse Rate [ Anterior Bilateral Throughout] Pulse Rate [ From Monitor] Respiratory 19 15 14 Rate Respiratory Rate [Anterior Bilateral Throughout] Blood Pressure 106/58 98/52 96/49 O2 Sat by Pulse 97 98 97 Oximetry 02/14/19 02/14/19 02/15/19 23:36 23:45 00:00 Temperature 99.3 F Pulse Rate 74 74 Pulse Rate [ Anterior Bilateral Throughout] Pulse Rate [ 72 From Monitor] Respiratory 18 15 17 Rate Respiratory Rate [Anterior Bilateral Throughout] Blood Pressure 100/53 95/51 O2 Sat by Pulse 97 95 97 Oximetry 02/15/19 02/15/19 02/15/19 00:06 00:15 00:25 Temperature Pulse Rate 76 75 79 Pulse Rate [ Anterior Bilateral Throughout] Pulse Rate [ From Monitor] Respiratory 17 20 20 Rate Respiratory Rate [Anterior Bilateral Throughout] Blood Pressure 95/51 93/54 85/55 O2 Sat by Pulse 98 95 98 Oximetry 02/15/19 02/15/19 02/15/19 00:30 00:45 01:00 Temperature Pulse Rate 73 100 H 73 Pulse Rate [ Anterior Bilateral Throughout] Pulse Rate [ From Monitor] Respiratory 20 24 16 Rate Respiratory Rate [Anterior Bilateral Throughout] Blood Pressure 85/55 109/62 110/57 O2 Sat by Pulse 97 97 97 Oximetry 02/15/19 02/15/19 02/15/19 01:15 01:30 01:45 Temperature Pulse Rate 69 72 72 Pulse Rate [ 82 Anterior Bilateral Throughout] Pulse Rate [ From Monitor] Respiratory 21 19 22 Rate Respiratory 18 Rate [Anterior Bilateral Throughout] Blood Pressure 100/50 105/54 116/57 O2 Sat by Pulse 97 95 98 Oximetry 02/15/19 02/15/19 02/15/19 02:00 02:15 02:30 Temperature Pulse Rate 69 69 73 Pulse Rate [ Anterior Bilateral Throughout] Pulse Rate [ From Monitor] Respiratory 17 23 22 Rate Respiratory Rate [Anterior Bilateral Throughout] Blood Pressure 102/52 94/50 88/55 O2 Sat by Pulse 95 95 96 Oximetry 02/15/19 02/15/19 02/15/19 02:45 03:00 03:15 Temperature Pulse Rate 73 73 69 Pulse Rate [ Anterior Bilateral Throughout] Pulse Rate [ From Monitor] Respiratory 25 H 24 4 L Rate Respiratory Rate [Anterior Bilateral Throughout] Blood Pressure 112/59 112/55 108/58 O2 Sat by Pulse 95 94 96 Oximetry 02/15/19 02/15/19 02/15/19 03:30 03:45 03:52 Temperature 99.6 F Pulse Rate 67 69 Pulse Rate [ Anterior Bilateral Throughout] Pulse Rate [ From Monitor] Respiratory 24 20 Rate Respiratory Rate [Anterior Bilateral Throughout] Blood Pressure 102/54 98/51 O2 Sat by Pulse 95 96 Oximetry 02/15/19 02/15/19 02/15/19 04:00 04:15 04:30 Temperature Pulse Rate 69 69 70 Pulse Rate [ Anterior Bilateral Throughout] Pulse Rate [ 67 From Monitor] Respiratory 21 21 21 Rate Respiratory Rate [Anterior Bilateral Throughout] Blood Pressure 105/57 108/55 107/55 O2 Sat by Pulse 97 95 96 Oximetry 02/15/19 02/15/19 02/15/19 04:45 05:00 05:11 Temperature Pulse Rate 69 71 71 Pulse Rate [ Anterior Bilateral Throughout] Pulse Rate [ From Monitor] Respiratory 12 25 H 25 H Rate Respiratory Rate [Anterior Bilateral Throughout] Blood Pressure 106/59 107/56 107/56 O2 Sat by Pulse 97 96 97 Oximetry 02/15/19 02/15/19 02/15/19 05:15 05:30 05:45 Temperature Pulse Rate 70 72 68 Pulse Rate [ Anterior Bilateral Throughout] Pulse Rate [ From Monitor] Respiratory 17 23 20 Rate Respiratory Rate [Anterior Bilateral Throughout] Blood Pressure 100/54 116/50 113/56 O2 Sat by Pulse 94 95 96 Oximetry 02/15/19 02/15/19 02/15/19 06:00 06:15 06:30 Temperature Pulse Rate 68 68 70 Pulse Rate [ Anterior Bilateral Throughout] Pulse Rate [ From Monitor] Respiratory 20 20 21 Rate Respiratory Rate [Anterior Bilateral Throughout] Blood Pressure 116/57 115/61 121/58 O2 Sat by Pulse 93 97 Oximetry 02/15/19 02/15/19 02/15/19 06:45 07:00 07:15 Temperature Pulse Rate 69 73 67 Pulse Rate [ Anterior Bilateral Throughout] Pulse Rate [ From Monitor] Respiratory 21 19 20 Rate Respiratory Rate [Anterior Bilateral Throughout] Blood Pressure 113/59 101/62 97/55 O2 Sat by Pulse 95 98 97 Oximetry 02/15/19 02/15/19 02/15/19 07:30 07:45 08:00 Temperature 100.4 F H Pulse Rate 68 68 72 Pulse Rate [ Anterior Bilateral Throughout] Pulse Rate [ From Monitor] Respiratory 20 20 21 Rate Respiratory Rate [Anterior Bilateral Throughout] Blood Pressure 102/54 99/54 101/62 O2 Sat by Pulse 95 97 96 Oximetry 02/15/19 02/15/19 02/15/19 08:16 08:30 08:45 Temperature Pulse Rate 72 67 72 Pulse Rate [ Anterior Bilateral Throughout] Pulse Rate [ From Monitor] Respiratory 19 25 H 22 Rate Respiratory Rate [Anterior Bilateral Throughout] Blood Pressure 122/67 133/67 131/59 O2 Sat by Pulse 97 96 95 Oximetry 02/15/19 02/15/19 08:50 09:02 Temperature Pulse Rate Pulse Rate [ 77 Anterior Bilateral Throughout] Pulse Rate [ From Monitor] Respiratory Rate Respiratory 20 Rate [Anterior Bilateral Throughout] Blood Pressure O2 Sat by Pulse 99 Oximetry Constitutional: alert, appears uncomfortable, other (elderly looking morbidly obese AAF, normocephalic on NC with mildly increased respiratory effort at rest) Eyes: non-icteric ENT: oropharynx moist, other (on nasal cannula) Neck: supple, no lymphadenopathy, no JVD, other (+ large neck circumference) Effort: mildly labored Ascultation: Bilateral: clear, diminished breath sounds Percussion: Bilateral: not dull Cardiovascular: regular rate and rhythm, other (S1,S2, ) Gastrointestinal: normoactive bowel sounds, soft, non-tender, non-distended, other (Protuberant) Integumentary: rash (stasisi dermatitis) Extremities: no cyanosis, no edema, pulses normal, no ischemia or petechiae, other (right groin trialysis catheter) Neurologic: non-focal exam (grossly), pupils equal and round, other (Encephalopathic) Psychiatric: mood appropriate, affect normal CBC and BMP: 02/15/19 07:55 02/15/19 05:23 ABG, PT/INR, D-dimer: ABG POC ABG pH 7.337 (7.35-7.45) L 02/13/19 09:52 ABG pH 7.368 pH Units (7.350-7.450) 02/14/19 18:07 POC ABG pCO2 43.2 (35-45) 02/13/19 09:52 ABG pCO2 44.1 mm Hg 02/14/19 18:07 POC ABG pO2 100 (80-105) 02/13/19 09:52 ABG pO2 86.4 mm Hg (80.0-90.0) 02/14/19 18:07 POC ABG HCO3 23.1 (22-26 mml/L) 02/13/19 09:52 POC ABG Total CO2 24 (23-27mmol/L) 02/13/19 09:52 POC ABG O2 Sat 97 02/13/19 09:52 ABG O2 Saturation 96.7 % (95.0-99.0) 02/14/19 18:07 PT/INR, D-dimer PT 17.8 Sec. (12.2-14.9) H 02/09/19 09:16 INR 1.49 (0.87-1.13) H 02/09/19 09:16 Abnormal lab findings: Abnormal Labs 02/09/19 02/09/19 02/09/19 08:48 09:16 09:16 WBC 14.6 H RBC 2.48 L Hgb 8.2 L Hct 25.4 L MCV 102 H MCH 33 H RDW 16.1 H Plt Count Seg Neuts % (Manual) 94.0 H Lymphocytes % (Manual) 1.0 L Nucleated RBC % 1.0 H Seg Neutrophils # Man 13.7 H Lymphocytes # (Manual) 0.1 L PT 17.8 H INR 1.49 H POC ABG pH POC ABG pCO2 POC ABG pO2 ABG Hemoglobin Oxyhemoglobin Sodium Potassium Chloride Carbon Dioxide BUN Creatinine Glucose POC Glucose 51 L Hemoglobin A1c Calcium Total Bilirubin Ammonia Total Creatine Kinase Troponin T Total Protein Albumin Gmjbs-4-Vlguqjaij Beta Globulins Gamma Globulins Abnorm Protein Band 1 Abnorm Protein Band 2 PEP Interpretation Cholesterol LDL Cholesterol Direct HDL Cholesterol TSH Urine WBC (Auto) Urine Creatinine Urine Total Protein Immunofix Electrophor 02/09/19 02/09/19 02/09/19 09:16 09:16 09:16 WBC RBC Hgb Hct MCV MCH RDW Plt Count Seg Neuts % (Manual) Lymphocytes % (Manual) Nucleated RBC % Seg Neutrophils # Man Lymphocytes # (Manual) PT INR POC ABG pH POC ABG pCO2 POC ABG pO2 ABG Hemoglobin Oxyhemoglobin Sodium 131 L Potassium 6.0 H Chloride 91.4 L Carbon Dioxide 18 L BUN 115 H Creatinine 6.8 H Glucose POC Glucose Hemoglobin A1c Calcium Total Bilirubin 2.90 H Ammonia 61.0 H Total Creatine Kinase 264 H Troponin T 0.073 H Total Protein 8.8 H Albumin 2.6 L Arewo-4-Ughepxezr Beta Globulins Gamma Globulins Abnorm Protein Band 1 Abnorm Protein Band 2 PEP Interpretation Cholesterol 47 L LDL Cholesterol Direct 13 L HDL Cholesterol 27 L TSH 5.570 H Urine WBC (Auto) Urine Creatinine Urine Total Protein Immunofix Electrophor 02/09/19 02/09/19 02/09/19 12:47 14:30 14:30 WBC RBC Hgb Hct MCV MCH RDW Plt Count Seg Neuts % (Manual) Lymphocytes % (Manual) Nucleated RBC % Seg Neutrophils # Man Lymphocytes # (Manual) PT INR POC ABG pH POC ABG pCO2 POC ABG pO2 ABG Hemoglobin Oxyhemoglobin Sodium 131 L Potassium 5.6 H Chloride 91.8 L Carbon Dioxide 17 L BUN 117 H Creatinine 6.5 H Glucose 50 L POC Glucose Hemoglobin A1c Calcium Total Bilirubin Ammonia Total Creatine Kinase Troponin T Total Protein Albumin Tgulm-4-Wrpcxuczx Beta Globulins Gamma Globulins Abnorm Protein Band 1 Abnorm Protein Band 2 PEP Interpretation Cholesterol LDL Cholesterol Direct HDL Cholesterol TSH Urine WBC (Auto) 32.0 H Urine Creatinine 162.4 H Urine Total Protein 49 H Immunofix Electrophor 02/09/19 02/09/19 02/09/19 15:05 15:39 19:03 WBC RBC Hgb Hct MCV MCH RDW Plt Count Seg Neuts % (Manual) Lymphocytes % (Manual) Nucleated RBC % Seg Neutrophils # Man Lymphocytes # (Manual) PT INR POC ABG pH POC ABG pCO2 POC ABG pO2 ABG Hemoglobin Oxyhemoglobin Sodium 131 L Potassium 5.7 H Chloride 93.6 L Carbon Dioxide 19 L BUN 111 H Creatinine 7.0 H Glucose 48 L POC Glucose < 40 L 112 H Hemoglobin A1c Calcium Total Bilirubin Ammonia Total Creatine Kinase Troponin T Total Protein Albumin Pkoiz-4-Ilnqgzjro Beta Globulins Gamma Globulins Abnorm Protein Band 1 Abnorm Protein Band 2 PEP Interpretation Cholesterol LDL Cholesterol Direct HDL Cholesterol TSH Urine WBC (Auto) Urine Creatinine Urine Total Protein Immunofix Electrophor 02/09/19 02/09/19 02/09/19 19:03 19:03 21:59 WBC RBC Hgb Hct MCV MCH RDW Plt Count Seg Neuts % (Manual) Lymphocytes % (Manual) Nucleated RBC % Seg Neutrophils # Man Lymphocytes # (Manual) PT INR POC ABG pH POC ABG pCO2 POC ABG pO2 ABG Hemoglobin Oxyhemoglobin Sodium Potassium Chloride Carbon Dioxide BUN Creatinine Glucose POC Glucose 61 L Hemoglobin A1c Calcium Total Bilirubin Ammonia Total Creatine Kinase Troponin T Total Protein Albumin 2.4 L Lkokb-5-Iagpcjqwx 0.5 H Beta Globulins 2.8 H Gamma Globulins 0.7 L Abnorm Protein Band 1 2.7 H Abnorm Protein Band 2 0.3 H PEP Interpretation see below H Cholesterol LDL Cholesterol Direct HDL Cholesterol TSH Urine WBC (Auto) Urine Creatinine Urine Total Protein Immunofix Electrophor see below H 02/09/19 02/10/19 02/10/19 23:24 03:06 06:36 WBC RBC Hgb Hct MCV MCH RDW Plt Count Seg Neuts % (Manual) Lymphocytes % (Manual) Nucleated RBC % Seg Neutrophils # Man Lymphocytes # (Manual) PT INR POC ABG pH POC ABG pCO2 POC ABG pO2 ABG Hemoglobin Oxyhemoglobin Sodium Potassium Chloride Carbon Dioxide BUN Creatinine Glucose POC Glucose < 40 L 60 L Hemoglobin A1c 8.5 H Calcium Total Bilirubin Ammonia Total Creatine Kinase Troponin T Total Protein Albumin Eameb-3-Uotajmnuv Beta Globulins Gamma Globulins Abnorm Protein Band 1 Abnorm Protein Band 2 PEP Interpretation Cholesterol LDL Cholesterol Direct HDL Cholesterol TSH Urine WBC (Auto) Urine Creatinine Urine Total Protein Immunofix Electrophor 02/10/19 02/10/19 02/10/19 06:39 07:21 09:28 WBC 14.7 H RBC 2.60 L Hgb 8.5 L Hct 26.9 L MCV 104 H MCH 33 H RDW 16.6 H Plt Count Seg Neuts % (Manual) 96.0 H Lymphocytes % (Manual) 1.0 L Nucleated RBC % 3.0 H Seg Neutrophils # Man 14.1 H Lymphocytes # (Manual) 0.1 L PT INR POC ABG pH POC ABG pCO2 POC ABG pO2 ABG Hemoglobin Oxyhemoglobin Sodium 130 L Potassium 6.2 H* Chloride 89.4 L Carbon Dioxide 17 L BUN 124 H Creatinine 6.8 H Glucose 120 H POC Glucose 120 H Hemoglobin A1c Calcium 8.3 L Total Bilirubin 3.10 H Ammonia Total Creatine Kinase Troponin T Total Protein 8.3 H Albumin 2.4 L Ebpdf-4-Lwgfgqahg Beta Globulins Gamma Globulins Abnorm Protein Band 1 Abnorm Protein Band 2 PEP Interpretation Cholesterol LDL Cholesterol Direct HDL Cholesterol TSH Urine WBC (Auto) Urine Creatinine Urine Total Protein Immunofix Electrophor 02/10/19 02/10/19 02/10/19 10:20 10:32 14:15 WBC RBC Hgb Hct MCV MCH RDW Plt Count Seg Neuts % (Manual) Lymphocytes % (Manual) Nucleated RBC % Seg Neutrophils # Man Lymphocytes # (Manual) PT INR POC ABG pH POC ABG pCO2 POC ABG pO2 ABG Hemoglobin Oxyhemoglobin Sodium Potassium 5.9 H Chloride Carbon Dioxide BUN Creatinine Glucose POC Glucose 64 L 67 L Hemoglobin A1c Calcium Total Bilirubin Ammonia Total Creatine Kinase Troponin T Total Protein Albumin Sipok-6-Keyykxljf Beta Globulins Gamma Globulins Abnorm Protein Band 1 Abnorm Protein Band 2 PEP Interpretation Cholesterol LDL Cholesterol Direct HDL Cholesterol TSH Urine WBC (Auto) Urine Creatinine Urine Total Protein Immunofix Electrophor 02/10/19 02/11/19 02/11/19 20:06 04:48 07:56 WBC RBC Hgb Hct MCV MCH RDW Plt Count Seg Neuts % (Manual) Lymphocytes % (Manual) Nucleated RBC % Seg Neutrophils # Man Lymphocytes # (Manual) PT INR POC ABG pH POC ABG pCO2 POC ABG pO2 ABG Hemoglobin Oxyhemoglobin Sodium 130 L Potassium Chloride 91.2 L Carbon Dioxide 20 L BUN 81 H Creatinine 5.7 H Glucose POC Glucose 113 H 124 H Hemoglobin A1c Calcium 8.1 L Total Bilirubin Ammonia Total Creatine Kinase Troponin T Total Protein Albumin Adwfh-3-Rvcptanly Beta Globulins Gamma Globulins Abnorm Protein Band 1 Abnorm Protein Band 2 PEP Interpretation Cholesterol LDL Cholesterol Direct HDL Cholesterol TSH Urine WBC (Auto) Urine Creatinine Urine Total Protein Immunofix Electrophor 02/11/19 02/11/19 02/11/19 10:35 11:46 14:56 WBC RBC Hgb Hct MCV MCH RDW Plt Count Seg Neuts % (Manual) Lymphocytes % (Manual) Nucleated RBC % Seg Neutrophils # Man Lymphocytes # (Manual) PT INR POC ABG pH 7.304 L POC ABG pCO2 47.7 H POC ABG pO2 142 H ABG Hemoglobin Oxyhemoglobin Sodium Potassium Chloride Carbon Dioxide BUN Creatinine Glucose POC Glucose 128 H 146 H Hemoglobin A1c Calcium Total Bilirubin Ammonia Total Creatine Kinase Troponin T Total Protein Albumin Nrenx-1-Oimydcuzs Beta Globulins Gamma Globulins Abnorm Protein Band 1 Abnorm Protein Band 2 PEP Interpretation Cholesterol LDL Cholesterol Direct HDL Cholesterol TSH Urine WBC (Auto) Urine Creatinine Urine Total Protein Immunofix Electrophor 02/11/19 02/11/19 02/12/19 18:16 23:48 05:35 WBC RBC Hgb Hct MCV MCH RDW Plt Count Seg Neuts % (Manual) Lymphocytes % (Manual) Nucleated RBC % Seg Neutrophils # Man Lymphocytes # (Manual) PT INR POC ABG pH POC ABG pCO2 POC ABG pO2 ABG Hemoglobin Oxyhemoglobin Sodium 133 L Potassium Chloride 93.8 L Carbon Dioxide 19 L BUN 61 H Creatinine 4.5 H Glucose 165 H POC Glucose 136 H 141 H Hemoglobin A1c Calcium 8.3 L Total Bilirubin Ammonia Total Creatine Kinase Troponin T Total Protein Albumin Pthnv-5-Wispdnhzi Beta Globulins Gamma Globulins Abnorm Protein Band 1 Abnorm Protein Band 2 PEP Interpretation Cholesterol LDL Cholesterol Direct HDL Cholesterol TSH Urine WBC (Auto) Urine Creatinine Urine Total Protein Immunofix Electrophor 02/12/19 02/12/19 02/12/19 05:53 11:09 11:56 WBC RBC Hgb Hct MCV MCH RDW Plt Count Seg Neuts % (Manual) Lymphocytes % (Manual) Nucleated RBC % Seg Neutrophils # Man Lymphocytes # (Manual) PT INR POC ABG pH 7.336 L POC ABG pCO2 POC ABG pO2 ABG Hemoglobin Oxyhemoglobin Sodium Potassium Chloride Carbon Dioxide BUN Creatinine Glucose POC Glucose 170 H 187 H Hemoglobin A1c Calcium Total Bilirubin Ammonia Total Creatine Kinase Troponin T Total Protein Albumin Xagvu-5-Pubmzzmed Beta Globulins Gamma Globulins Abnorm Protein Band 1 Abnorm Protein Band 2 PEP Interpretation Cholesterol LDL Cholesterol Direct HDL Cholesterol TSH Urine WBC (Auto) Urine Creatinine Urine Total Protein Immunofix Electrophor 02/12/19 02/12/19 02/13/19 18:05 23:43 05:12 WBC RBC Hgb Hct MCV MCH RDW Plt Count Seg Neuts % (Manual) Lymphocytes % (Manual) Nucleated RBC % Seg Neutrophils # Man Lymphocytes # (Manual) PT INR POC ABG pH POC ABG pCO2 POC ABG pO2 ABG Hemoglobin Oxyhemoglobin Sodium Potassium Chloride 97.9 L Carbon Dioxide 19 L BUN 44 H Creatinine 3.1 H Glucose 252 H POC Glucose 207 H 236 H Hemoglobin A1c Calcium Total Bilirubin Ammonia Total Creatine Kinase Troponin T Total Protein Albumin Dwitg-6-Tpnbnfspa Beta Globulins Gamma Globulins Abnorm Protein Band 1 Abnorm Protein Band 2 PEP Interpretation Cholesterol LDL Cholesterol Direct HDL Cholesterol TSH Urine WBC (Auto) Urine Creatinine Urine Total Protein Immunofix Electrophor 02/13/19 02/13/19 02/13/19 05:12 05:31 09:52 WBC 32.4 H RBC 2.54 L Hgb 8.3 L Hct 26.0 L MCV 102 H MCH 33 H RDW 16.5 H Plt Count Seg Neuts % (Manual) 92.0 H Lymphocytes % (Manual) 3.0 L Nucleated RBC % 1.0 H Seg Neutrophils # Man 29.8 H Lymphocytes # (Manual) 1.0 L PT INR POC ABG pH 7.337 L POC ABG pCO2 POC ABG pO2 ABG Hemoglobin Oxyhemoglobin Sodium Potassium Chloride Carbon Dioxide BUN Creatinine Glucose POC Glucose 237 H Hemoglobin A1c Calcium Total Bilirubin Ammonia Total Creatine Kinase Troponin T Total Protein Albumin Wzomb-5-Plsqssqkf Beta Globulins Gamma Globulins Abnorm Protein Band 1 Abnorm Protein Band 2 PEP Interpretation Cholesterol LDL Cholesterol Direct HDL Cholesterol TSH Urine WBC (Auto) Urine Creatinine Urine Total Protein Immunofix Electrophor 02/13/19 02/13/19 02/13/19 12:02 17:21 23:40 WBC RBC Hgb Hct MCV MCH RDW Plt Count Seg Neuts % (Manual) Lymphocytes % (Manual) Nucleated RBC % Seg Neutrophils # Man Lymphocytes # (Manual) PT INR POC ABG pH POC ABG pCO2 POC ABG pO2 ABG Hemoglobin Oxyhemoglobin Sodium Potassium Chloride Carbon Dioxide BUN Creatinine Glucose POC Glucose 318 H 342 H 338 H Hemoglobin A1c Calcium Total Bilirubin Ammonia Total Creatine Kinase Troponin T Total Protein Albumin Zwowl-2-Xxyiljput Beta Globulins Gamma Globulins Abnorm Protein Band 1 Abnorm Protein Band 2 PEP Interpretation Cholesterol LDL Cholesterol Direct HDL Cholesterol TSH Urine WBC (Auto) Urine Creatinine Urine Total Protein Immunofix Electrophor 02/14/19 02/14/19 02/14/19 05:27 05:54 08:36 WBC 40.7 H* RBC 2.28 L Hgb 7.3 L Hct 23.2 L MCV 101 H MCH RDW 16.1 H Plt Count Seg Neuts % (Manual) Lymphocytes % (Manual) Nucleated RBC % Seg Neutrophils # Man Lymphocytes # (Manual) PT INR POC ABG pH POC ABG pCO2 POC ABG pO2 ABG Hemoglobin Oxyhemoglobin Sodium Potassium Chloride Carbon Dioxide 17 L BUN 65 H Creatinine 3.6 H Glucose 286 H POC Glucose 253 H Hemoglobin A1c Calcium Total Bilirubin Ammonia Total Creatine Kinase Troponin T Total Protein Albumin Hkwtr-8-Bjcufmwzy Beta Globulins Gamma Globulins Abnorm Protein Band 1 Abnorm Protein Band 2 PEP Interpretation Cholesterol LDL Cholesterol Direct HDL Cholesterol TSH Urine WBC (Auto) Urine Creatinine Urine Total Protein Immunofix Electrophor 02/14/19 02/14/19 02/14/19 11:59 16:52 18:07 WBC RBC Hgb Hct MCV MCH RDW Plt Count Seg Neuts % (Manual) Lymphocytes % (Manual) Nucleated RBC % Seg Neutrophils # Man Lymphocytes # (Manual) PT INR POC ABG pH POC ABG pCO2 POC ABG pO2 ABG Hemoglobin 8.0 L Oxyhemoglobin 93.9 L Sodium Potassium Chloride Carbon Dioxide BUN Creatinine Glucose POC Glucose 253 H 210 H Hemoglobin A1c Calcium Total Bilirubin Ammonia Total Creatine Kinase Troponin T Total Protein Albumin Dpbrt-1-Ojcxbftly Beta Globulins Gamma Globulins Abnorm Protein Band 1 Abnorm Protein Band 2 PEP Interpretation Cholesterol LDL Cholesterol Direct HDL Cholesterol TSH Urine WBC (Auto) Urine Creatinine Urine Total Protein Immunofix Electrophor 02/14/19 02/14/19 02/15/19 18:46 23:44 05:23 WBC RBC Hgb Hct MCV MCH RDW Plt Count Seg Neuts % (Manual) Lymphocytes % (Manual) Nucleated RBC % Seg Neutrophils # Man Lymphocytes # (Manual) PT INR POC ABG pH POC ABG pCO2 POC ABG pO2 ABG Hemoglobin Oxyhemoglobin Sodium Potassium 3.4 L Chloride Carbon Dioxide BUN 49 H Creatinine 2.7 H Glucose 197 H POC Glucose 244 H 184 H Hemoglobin A1c Calcium 8.3 L Total Bilirubin Ammonia Total Creatine Kinase Troponin T Total Protein Albumin Xrjzi-6-Nxxsvbbjo Beta Globulins Gamma Globulins Abnorm Protein Band 1 Abnorm Protein Band 2 PEP Interpretation Cholesterol LDL Cholesterol Direct HDL Cholesterol TSH Urine WBC (Auto) Urine Creatinine Urine Total Protein Immunofix Electrophor 02/15/19 02/15/19 05:43 07:55 WBC 37.5 H RBC 2.20 L Hgb 7.1 L Hct 22.4 L MCV 102 H MCH RDW 16.0 H Plt Count 138 L Seg Neuts % (Manual) Lymphocytes % (Manual) Nucleated RBC % Seg Neutrophils # Man Lymphocytes # (Manual) PT INR POC ABG pH POC ABG pCO2 POC ABG pO2 ABG Hemoglobin Oxyhemoglobin Sodium Potassium Chloride Carbon Dioxide BUN Creatinine Glucose POC Glucose 202 H Hemoglobin A1c Calcium Total Bilirubin Ammonia Total Creatine Kinase Troponin T Total Protein Albumin Yyafu-8-Gdetzzhol Beta Globulins Gamma Globulins Abnorm Protein Band 1 Abnorm Protein Band 2 PEP Interpretation Cholesterol LDL Cholesterol Direct HDL Cholesterol TSH Urine WBC (Auto) Urine Creatinine Urine Total Protein Immunofix Electrophor Allied health notes reviewed: nursing
[2019-02-15] MEDS ORDERED: SODIUM CHLORIDE 0.9% 250ML 250 ML IV SCH (10:30)
[2019-02-15] MEDS: FAMOTIDINE 20 MG TAB PO SCH (10:41)
[2019-02-15] MEDS: HEPARIN 5,000 UNIT/1 ML VIAL SUB-Q SCH ×2 (10:42→22:30)
[2019-02-15] MEDS: FLUCONAZOLE 200 MG 200 MG/100 ML BAG IV SCH (10:42)
[2019-02-15 11:13] LABS: Myeloperoxidase Antibody <1.0 AI (<1.0)
--- NOTE | 2019-02-15 12:12 | Progress Note ---
Assessment and Plan Assessment and plan: Patient is a 68 yo AA woman with a history of morbid obesity, asthma/COPD, DM type 2, hypertension, CHF, advance Dementia, CKD 4 and AUDI on cpap, who presented from home to [facility] ED on 02/09/2019 due to altered mental status and weakness. She was treated for a "lung infection" at home 2 days ago prior to arrival. * CTH neg * Renal US neg * Cultures: Blood culture 02/10/2019 no growth so far and Urine culture 02/09/2019 negative. * CT chest without contrast IMPRESSION: Low lung volumes with patchy bibasilar density that appears most consistent with subsegmental atelectasis. No convincing evidence of pneumonia. No pericardial or pleural effusion. Hypotension with shock, suspect sepsis related: Ordered ECHO, trying to wean down Levophed Extremely high WBC: ID following, ordered CT abd/pelvis without contrast which is still pending JESÚS/CKD 4, suspected due to ATN, Sp Vas cath , started on urgent HD on 02/10, cont HD per [employer] Supervisor Severe sepsis from UTI with septic shock, poa: triate off the 2mcg levophed IV gtt etiology likely UTI Acute metabolic encephalopathy-Most likely due to uremia, should improve with dialysis, BUN still elevated to the at 60 Acute hypoxic resp failure, most likely due to volume overload, treated by Ultrafiltration with HD, now off bipap, doing well on NC, Pulmonology consult appreciated DM with hypoglycemia episodes resolved, a1c 8.5, received Sulfonylureas 02/09, treated with d10 drip, monitored off SSI, now hyperglycemia, will restart SSI DVT ppx- heparin sq Disposition: continue ICU care, trying to wean off levophed, down to 4 mcg full code I called next of Kin Howie, no answer CCT 35 minutes History Interval history: Patient was seen and examined. Follow-up on current diagnosis Respiratory failure. No overnight events reported to me. Imaging, nursing note, chart, labs and old chart reviewed. Discussed with patient. Hospitalist Physical - Physical exam Narrative exam: Gen: morbid obese, chronically ill appearing, bmi 63.6, NAD, Awake, Alert, Orientated x 1 HEENT: NCAT, EOMI, PERRL, OP Clear Neck: supple, no adenopathy, no thyromegaly, no JVD CVS/Heart: RRR, normal S1S2, pulses present bilaterally Chest/Lungs: diminished bs bilateral, Symmetrical chest expansion, adequate air entry bilaterally GI/Abdomen: soft, NTND, good bowel sounds, no guarding or rebound /Bladder: no suprapubic tenderness, no CVA or paraspinal tenderness Extermity/Skin: no c/c/e, no obvious rash MSK: FROM x 4, resist movement, doesn't follow commands Neuro: CN 2-12 grossly intact, doesn't follow commands Psych: calm but confused - Constitutional Vitals: Temp Pulse Resp BP Pulse Ox 100.4 F H 77 20 131/59 99 02/15/19 08:00 02/15/19 08:50 02/15/19 08:50 02/15/19 08:45 02/15/19 09:02 General appearance: Present: no acute distress, well-nourished Results - Labs CBC & Chem 7: 02/15/19 07:55 02/15/19 05:23 Labs: Laboratory Last Values WBC 37.5 K/mm3 (4.5-11.0) H 02/15/19 07:55 RBC 2.20 M/mm3 (3.65-5.03) L 02/15/19 07:55 Hgb 7.1 gm/dl (10.1-14.3) L 02/15/19 07:55 Hct 22.4 % (30.3-42.9) L 02/15/19 07:55 MCV 102 fl (79-97) H 02/15/19 07:55 MCH 32 pg (28-32) 02/15/19 07:55 MCHC 32 % (30-34) 02/15/19 07:55 RDW 16.0 % (13.2-15.2) H 02/15/19 07:55 Plt Count 138 K/mm3 (140-440) L 02/15/19 07:55 Lymph % (Auto) Conference Translator 02/10/19 09:28 Hart % (Auto) Conference Translator 02/10/19 09:28 Eos % (Auto) Conference Translator 02/10/19 09:28 Baso % (Auto) Conference Translator 02/10/19 09:28 Lymph # Conference Translator 02/10/19 09:28 Hart # Conference Translator 02/10/19 09:28 Eos # Conference Translator 02/10/19 09:28 Baso # Conference Translator 02/10/19 09:28 Add Manual Diff Complete 02/13/19 05:12 Total Counted 100 02/13/19 05:12 Seg Neutrophils % Conference Translator 02/13/19 05:12 Seg Neuts % (Manual) 92.0 % (40.0-70.0) H 02/13/19 05:12 Band Neutrophils % 1.0 % 02/13/19 05:12 Lymphocytes % (Manual) 3.0 % (13.4-35.0) L 02/13/19 05:12 Reactive Lymphs % (Man) 0 % 02/13/19 05:12 Monocytes % (Manual) 1.0 % (0.0-7.3) 02/13/19 05:12 Eosinophils % (Manual) 0 % (0.0-4.3) 02/13/19 05:12 Basophils % (Manual) 0 % (0.0-1.8) 02/13/19 05:12 Metamyelocytes % 3.0 % 02/13/19 05:12 Myelocytes % 0 % 02/13/19 05:12 Promyelocytes % 0 % 02/13/19 05:12 Blast Cells % 0 % 02/13/19 05:12 Nucleated RBC % 1.0 % (0.0-0.9) H 02/13/19 05:12 Seg Neutrophils # Conference Translator 02/10/19 09:28 Seg Neutrophils # Man 29.8 K/mm3 (1.8-7.7) H 02/13/19 05:12 Band Neutrophils # 0.3 K/mm3 02/13/19 05:12 Lymphocytes # (Manual) 1.0 K/mm3 (1.2-5.4) L 02/13/19 05:12 Abs React Lymphs (Man) 0.0 K/mm3 02/13/19 05:12 Monocytes # (Manual) 0.3 K/mm3 (0.0-0.8) 02/13/19 05:12 Eosinophils # (Manual) 0.0 K/mm3 (0.0-0.4) 02/13/19 05:12 Basophils # (Manual) 0.0 K/mm3 (0.0-0.1) 02/13/19 05:12 Metamyelocytes # 1.0 K/mm3 02/13/19 05:12 Myelocytes # 0.0 K/mm3 02/13/19 05:12 Promyelocytes # 0.0 K/mm3 02/13/19 05:12 Blast Cells # 0.0 K/mm3 02/13/19 05:12 WBC Morphology Not Reportable 02/13/19 05:12 Hypersegmented Neuts Not Reportable 02/13/19 05:12 Hyposegmented Neuts Not Reportable 02/13/19 05:12 Hypogranular Neuts Not Reportable 02/13/19 05:12 Smudge Cells Not Reportable 02/13/19 05:12 Toxic Granulation Not Reportable 02/13/19 05:12 Toxic Vacuolation Not Reportable 02/13/19 05:12 Dohle Bodies Few 02/13/19 05:12 Pelger-Huet Anomaly Not Reportable 02/13/19 05:12 Casey Rods Not Reportable 02/13/19 05:12 Platelet Estimate Consistent w auto 02/13/19 05:12 Clumped Platelets Not Reportable 02/13/19 05:12 Plt Clumps, EDTA Not Reportable 02/13/19 05:12 Large Platelets Not Reportable 02/13/19 05:12 Giant Platelets Not Reportable 02/13/19 05:12 Platelet Satelliting Not Reportable 02/13/19 05:12 Plt Morphology Comment Not Reportable 02/13/19 05:12 RBC Morphology Not Reportable 02/13/19 05:12 Dimorphic RBCs Not Reportable 02/13/19 05:12 Polychromasia Rare 02/13/19 05:12 Hypochromasia Not Reportable 02/13/19 05:12 Poikilocytosis Not Reportable 02/13/19 05:12 Anisocytosis Not Reportable 02/13/19 05:12 Microcytosis Not Reportable 02/13/19 05:12 Macrocytosis Not Reportable 02/13/19 05:12 Spherocytes Not Reportable 02/13/19 05:12 Pappenheimer Bodies Not Reportable 02/13/19 05:12 Sickle Cells Not Reportable 02/13/19 05:12 Target Cells Few 02/13/19 05:12 Tear Drop Cells Not Reportable 02/13/19 05:12 Ovalocytes Not Reportable 02/13/19 05:12 Helmet Cells Not Reportable 02/13/19 05:12 Agu[place]o-Grindstone Bodies Not Reportable 02/13/19 05:12 [place] Rings Not Reportable 02/13/19 05:12 Kennard Cells Not Reportable 02/13/19 05:12 Bite Cells Not Reportable 02/13/19 05:12 Crenated Cell Not Reportable 02/13/19 05:12 Elliptocytes Not Reportable 02/13/19 05:12 Acanthocytes (Spur) Not Reportable 02/13/19 05:12 Rouleaux Not Reportable 02/13/19 05:12 Hemoglobin C Crystals Not Reportable 02/13/19 05:12 Schistocytes Not Reportable 02/13/19 05:12 Malaria parasites Not Reportable 02/13/19 05:12 Emanuel Bodies Not Reportable 02/13/19 05:12 Hem Pathologist Commnt No 02/13/19 05:12 PT 17.8 Sec. (12.2-14.9) H 02/09/19 09:16 INR 1.49 (0.87-1.13) H 02/09/19 09:16 APTT 36.0 Sec. (24.2-36.6) 02/09/19 09:16 POC ABG pH 7.337 (7.35-7.45) L 02/13/19 09:52 ABG pH 7.368 pH Units (7.350-7.450) 02/14/19 18:07 POC ABG pCO2 43.2 (35-45) 02/13/19 09:52 ABG pCO2 44.1 mm Hg 02/14/19 18:07 POC ABG pO2 100 (80-105) 02/13/19 09:52 ABG pO2 86.4 mm Hg (80.0-90.0) 02/14/19 18:07 POC ABG HCO3 23.1 (22-26 mml/L) 02/13/19 09:52 ABG HCO3 24.8 mmol/L (20.0-26.0) 02/14/19 18:07 POC ABG Total CO2 24 (23-27mmol/L) 02/13/19 09:52 POC ABG O2 Sat 97 02/13/19 09:52 ABG O2 Saturation 96.7 % (95.0-99.0) 02/14/19 18:07 ABG O2 Content 10.7 (0.0-44) 02/14/19 18:07 POC ABG Base Excess -3 ((-2) - (+3)mmol/L) 02/13/19 09:52 ABG Base Excess -0.5 mmol/L (-2.0-3.0) 02/14/19 18:07 ABG Hemoglobin 8.0 gm/dl (12.0-16.0) L 02/14/19 18:07 ABG Carboxyhemoglobin 2.6 % (0.0-5.0) 02/14/19 18:07 ABG Methemoglobin 0.3 % (0.0-1.5) 02/14/19 18:07 Oxyhemoglobin 93.9 % (95.0-99.0) L 02/14/19 18:07 FiO2 28 % 02/14/19 18:07 Sodium 138 mmol/L (137-145) 02/15/19 05:23 Potassium 3.4 mmol/L (3.6-5.0) L 02/15/19 05:23 Chloride 98.3 mmol/L (98-107) 02/15/19 05:23 Carbon Dioxide 22 mmol/L (22-30) 02/15/19 05:23 Anion Gap 21 mmol/L 02/15/19 05:23 BUN 49 mg/dL (7-17) H 02/15/19 05:23 Creatinine 2.7 mg/dL (0.7-1.2) H 02/15/19 05:23 Estimated GFR 21 ml/min 02/15/19 05:23 BUN/Creatinine Ratio 18 % 02/15/19 05:23 Glucose 197 mg/dL (65-100) H 02/15/19 05:23 POC Glucose 240 (70-105) H 02/15/19 11:51 Hemoglobin A1c 8.5 % (4-6) H 02/09/19 23:24 Lactic Acid 1.90 mmol/L (0.7-2.0) 02/11/19 16:15 Calcium 8.3 mg/dL (8.4-10.2) L 02/15/19 05:23 Phosphorus 4.10 mg/dL (2.5-4.5) 02/09/19 12:47 Total Bilirubin 3.10 mg/dL (0.1-1.2) H 02/10/19 06:39 AST 39 units/L (5-40) 02/10/19 06:39 ALT 12 units/L (7-56) 02/10/19 06:39 Alkaline Phosphatase 112 units/L (35-129) 02/10/19 06:39 Ammonia 61.0 umol/L (25-60) H 02/09/19 09:16 Total Creatine Kinase 264 units/L (30-135) H 02/09/19 09:16 CK-MB (CK-2) 2.1 ng/mL (0.0-4.0) 02/09/19 09:16 CK-MB (CK-2) Rel Index 0.7 (0-4) 02/09/19 09:16 Troponin T 0.073 ng/mL (0.00-0.029) H 02/09/19 09:16 Serum Total Protein 7.8 g/dL (6.1-8.1) 02/09/19 19:03 Total Protein 8.3 g/dL (6.3-8.2) H 02/10/19 06:39 Albumin 2.4 g/dL (3.9-5) L 02/10/19 06:39 Albumin/Globulin Ratio 0.4 % 02/10/19 06:39 Bzhmd-2-Tzbxcmwgr 0.5 g/dL (0.2-0.3) H 02/09/19 19:03 Idurt-7-Gynbbmlmc 0.7 g/dL (0.5-0.9) 02/09/19 19:03 Beta Globulins 2.8 g/dL (0.2-0.5) H 02/09/19 19:03 Gamma Globulins 0.7 g/dL (0.8-1.7) L 02/09/19 19:03 Abnorm Protein Band 1 2.7 g/dL H 02/09/19 19:03 Abnorm Protein Band 2 0.3 g/dL H 02/09/19 19:03 PEP Interpretation see below H 02/09/19 19:03 Triglycerides 65 mg/dL (2-149) 02/09/19 09:16 Cholesterol 47 mg/dL (50-199) L 02/09/19 09:16 LDL Cholesterol Direct 13 mg/dL (50-130) L 02/09/19 09:16 HDL Cholesterol 27 mg/dL (40-59) L 02/09/19 09:16 Cholesterol/HDL Ratio 1.74 % 02/09/19 09:16 Procalcitonin 11.74 ng/mL (<0.15) 02/11/19 16:15 TSH 5.570 mlU/mL (0.270-4.200) H 02/09/19 09:16 Free T4 0.85 ng/dL (0.76-1.46) 02/09/19 09:16 Urine Color Shamika (Yellow) 02/09/19 14:30 Urine Turbidity Cloudy (Clear) 02/09/19 14:30 Urine pH 5.0 (5.0-7.0) 02/09/19 14:30 Ur Specific [place] 1.015 (1.003-1.030) 02/09/19 14:30 Urine Protein 30 mg/dl mg/dL (Negative) 02/09/19 14:30 Urine Glucose (UA) Neg mg/dL (Negative) 02/09/19 14:30 Urine Ketones Neg mg/dL (Negative) 02/09/19 14:30 Urine Blood Sm (Negative) 02/09/19 14:30 Urine Nitrite Neg (Negative) 02/09/19 14:30 Urine Bilirubin Neg (Negative) 02/09/19 14:30 Urine Urobilinogen < 2.0 mg/dL (<2.0) 02/09/19 14:30 Ur Leukocyte Esterase Mod (Negative) 02/09/19 14:30 Urine WBC (Auto) 32.0 /HPF (0.0-6.0) H 02/09/19 14:30 Urine RBC (Auto) 29.0 /HPF (0.0-6.0) 02/09/19 14:30 U Epithel Cells (Auto) 3.0 /HPF (0-13.0) 02/09/19 14:30 Urine Bacteria (Auto) 3+ /HPF (Negative) 02/09/19 14:30 Urine WBC Clumps 2+ /HPF 02/09/19 14:30 Urine Mucus Few /HPF 02/09/19 14:30 Urine Creatinine 162.4 mg/dL (0.1-20.0) H 02/09/19 14:30 Protein/Creatinin Ratio 0.30 02/09/19 14:30 Urine Sodium 38 mmol/L 02/09/19 14:30 Urine Total Protein 49 mg/dL (5-11.8) H 02/09/19 14:30 Nasal Screen MRSA (PCR) Negative (Negative) 02/12/19 Unknown Random Vancomycin 10.6 ug/mL (0-40.0) 02/15/19 05:23 Urine Opiates Screen Presumptive negative 02/09/19 14:30 Urine Methadone Screen Presumptive negative 02/09/19 14:30 Ur Barbiturates Screen Presumptive negative 02/09/19 14:30 Ur Phencyclidine Scrn Presumptive negative 02/09/19 14:30 Ur Amphetamines Screen Presumptive negative 02/09/19 14:30 U Benzodiazepines Scrn Presumptive negative 02/09/19 14:30 Urine Cocaine Screen Presumptive negative 02/09/19 14:30 U Marijuana (THC) Screen Presumptive negative 02/09/19 14:30 Drugs of Abuse Note Disclamer 02/09/19 14:30 Plasma/Serum Alcohol < 0.01 % (0-0.07) 02/09/19 09:16 Immunofix Electrophor see below H 02/09/19 19:03 Proteinase 3 (PR3) Ab <1.0 AI (<1.0) 02/09/19 12:47 Myeloperoxidase Ab <1.0 AI (<1.0) 02/09/19 12:47 Complement C3 123 mg/dL (83-193) 02/09/19 12:47 Complement C4 37 mg/dL (15-57) 02/09/19 12:47 Hepatitis A IgM Ab Non-reactive (NonReactive) 02/09/19 12:47 Hep Bs Antigen Non-reactive (Negative) 02/09/19 12:47 Hep B Core IgM Ab Non-reactive (NonReactive) 02/09/19 12:47 Hepatitis C Antibody Non-reactive (NonReactive) 02/09/19 12:47 Influenza A (Rapid) Negative (Negative) 02/12/19 Unknown Influenza A (RT-PCR) Negative (Negative) 02/12/19 Unknown Influenza B (Rapid) Negative (Negative) 02/12/19 Unknown Influenza B (RT-PCR) Negative (Negative) 02/12/19 Unknown Active Medications - Current Medications Current Medications: Generic Name Dose Route Start Last Admin Trade Name Freq PRN Reason Stop Dose Admin Acetaminophen 650 mg 02/09/19 22:59 Tylenol PO Q4H PRN Pain MILD(1-3)/Fever >100.5/ARREDONDO Albumin Human 25 gm 02/11/19 12:02 Alburx 25% (Albumin) IV TREVA PRN Hypotension Albuterol 1.25 mg 02/10/19 01:36 Proventil IH TIDRT PRN Shortness Of Breath Albuterol/Ipratropium 1 ampul 02/10/19 14:00 02/15/19 08:50 Duoneb *Not For Prn Use* IH 1 ampul Q6HRT YISEL Administration Dextrose 50 ml 02/13/19 18:56 D50w (25gm) Syringe IV Q30MIN PRN Hypoglycemia Protocol Famotidine 20 mg 02/14/19 10:00 02/15/19 10:41 Pepcid PO 20 mg DAILY YISEL Administration Gabapentin 800 mg 02/09/19 23:00 02/15/19 05:28 Gabapentin PO Not Given Q8HR YISEL Heparin Sodium (Porcine) 5,000 unit 02/10/19 22:00 02/15/19 10:42 Heparin SUB-Q 5,000 unit Q12HR YISEL Administration Hydromorphone HCl 0.25 mg 02/09/19 22:59 Dilaudid IV Q3H PRN Pain, Moderate (4-6) Cefepime HCl 1 gm in 100 mls @ 200 mls/hr 02/10/19 16:00 02/14/19 19:06 Cefepime/Ns 1 Gm/100 Ml IV 200 mls/hr Q24H YISEL Administration Sodium Chloride 100 mls @ 999 mls/hr 02/11/19 12:02 Nacl 0.9% IV TREVA PRN Hypotension Norepinephrine 4 mg in 250 mls @ 7.5 mls/hr 02/11/19 14:00 02/15/19 02:33 Levophed Drip 4 Mg/Ns 250 Ml IV 4 mcg/min TITR YISEL 15 mls/hr Administration Protocol 2 MCG/MIN Metronidazole 500 mg in 100 mls @ 100 mls/hr 02/14/19 14:00 02/15/19 05:22 Flagyl 500 Mg/100 Ml IV 100 mls/hr Q8HR YISEL Administration Protocol Fluconazole 200 mg in 100 mls @ 100 mls/hr 02/14/19 13:00 02/15/19 10:42 Diflucan IV 100 mls/hr Q24HR YISEL Administration Protocol Insulin Glargine 5 units 02/14/19 13:00 02/15/19 08:51 Lantus SUB-Q 5 units QAMDIAB YISEL Administration Insulin Human Lispro 0 unit 02/13/19 19:00 02/15/19 05:45 Humalog SUB-Q 4 unit Q6HR YISEL Administration Protocol Ondansetron HCl 4 mg 02/09/19 22:59 Zofran IV Q8H PRN Nausea And Vomiting Oxycodone/Acetaminophen 1 tab 02/09/19 22:59 Percocet 5/325 PO Q6H PRN Pain, Moderate (4-6) Sodium Chloride 10 ml 02/10/19 10:00 02/14/19 22:28 Sodium Chloride Flush Syringe 10 Ml IV 10 ml BID YISEL Administration Sodium Chloride 10 ml 02/09/19 22:59 02/10/19 06:44 Sodium Chloride Flush Syringe 10 Ml IV 10 ml PRN PRN Administration LINE FLUSH Nutrition/Malnutrition Assess - Dietary Evaluation Nutrition/Malnutrition Findings: Nutrition Notes Start: 02/14/19 11:05 Freq: Status: Active Protocol: Document 02/14/19 11:05 CC (Rec: 02/14/19 11:26 CC [id number]) Co-Sign 02/14/19 11:05 LP Nutrition Notes Need for Assessment generated from: MD Order Initial or Follow up Assessment Current Diagnosis CKD(stage I-IV),Diabetes, Hypertension,Heart Failure, Respiratory Failure Other Pertinent Diagnosis HD, asthma Current Diet mechanical soft Labs/Tests BUN 65 Creat 3.6 A1c 8.5 Pertinent Medications Levophed Height 5 ft 4 in Weight 168 kg [place] Body Weight (kg) 54.54 BMI 63.6 Weight Status Morbidly Obese Subjective/Other Information Screen for poor oral intake. Pt unable to answer all question and pt son at bedside helped to answer some questions. Pt reported he appetite has been okay. Pt reported she has unitentionally lost weight but was unable to answer how much or when she lost this wt. Per pt son pt has not been eating much while in hospital. Pt shook her head yes when asked is she would like an ONS. Noted her diet has been changed to pureed diet Burn Absent Trauma Absent Food Allergy No Current % PO Poor (25-49%) Minimum of two criteria No physical signs of malnutrition #1 Nutrition Diagnosis Inadequate oral intake Etiology AMS As Evidenced by Signs and Symptoms less than 50% of meals consumed, diet order change to pureed Is patient on ventilator? No Is Patient Ambulatory and/or Out of Bed No REE-([place]-confined to bed) 2638.512 Kcal/Kg value to use for calculation 12 Approximate Energy Requirements Using 2016 kcal/Kg Calculation Used for Recommendations Kcal/kg Additional Notes PRO: 111-133g/day (1.0-1.2g/kg AdBW 111kg) Fluid: 1ml/kcal or per MD Nutrition Intervention Change Diet Order: pureed Add Supplement/Snack (indicate name/kcal Ensure High Protein once daily /protein ) Provides kCal: 160 Provides Protein (gm) 16 Goal #1 Meet at least 80% of energy and protein needs via PO and ONS intakes Anticipated Discharge Needs: unknown at this time Follow-Up By: 02/16/19 Additional Comments F/U for PO and ONS intakes
--- NOTE | 2019-02-15 14:11 | Progress Note ---
Assessment and Plan - Patient Problems (1) JESÚS (acute kidney injury) Current Visit: Yes Status: Acute Plan to address problem: Acute kidney injury on chronic kidney disease Baseline creatinine 1.6 in 2017 Admission creatinine of 7 with hyperkalemia will continue dialysis We will plan to repeat his dialysis on tuesday for VOLUME OVERLOAD Reviewed urinalysis numerous red and white cells creatinine still rising. lynch without output. Strict in and output (2) Hyperkalemia Current Visit: Yes Status: Acute Plan to address problem: Hyperkalemia resolved continue dialysis (3) Diabetes Current Visit: No Status: Acute Plan to address problem: Diabetes mellitus type 2 Continue medications (4) Acute encephalopathy Current Visit: Yes Status: Acute Plan to address problem: Encephalopathy: much improved. continue hemodialysis. Subjective Principal diagnosis: Ac. hypercapnic resp. failure; Severe Sepsis with Shock; A KI on CKD; AUDI Interval history: 68 year old female with medical history significant for altered mental status , acute kidney injury ,hypoglycemia , baseline creatinine of 1.6mg/dl in 2017 admitted with hyperkalemia and Acute kidney injury Patient now on nasal cannula no orthopnea or PND Lynch without any signficant output Objective - Vital Signs Vital signs: Vital Signs - 12hr 02/15/19 02/15/19 02/15/19 02:15 02:30 02:45 Temperature Pulse Rate 69 73 73 Pulse Rate [ Anterior Bilateral Throughout] Pulse Rate [ From Monitor] Respiratory 23 22 25 H Rate Respiratory Rate [Anterior Bilateral Throughout] Blood Pressure 94/50 88/55 112/59 O2 Sat by Pulse 95 96 95 Oximetry 02/15/19 02/15/19 02/15/19 03:00 03:15 03:30 Temperature Pulse Rate 73 69 67 Pulse Rate [ Anterior Bilateral Throughout] Pulse Rate [ From Monitor] Respiratory 24 4 L 24 Rate Respiratory Rate [Anterior Bilateral Throughout] Blood Pressure 112/55 108/58 102/54 O2 Sat by Pulse 94 96 95 Oximetry 02/15/19 02/15/19 02/15/19 03:45 03:52 04:00 Temperature 99.6 F Pulse Rate 69 69 Pulse Rate [ Anterior Bilateral Throughout] Pulse Rate [ 67 From Monitor] Respiratory 20 21 Rate Respiratory Rate [Anterior Bilateral Throughout] Blood Pressure 98/51 105/57 O2 Sat by Pulse 96 97 Oximetry 02/15/19 02/15/19 02/15/19 04:15 04:30 04:45 Temperature Pulse Rate 69 70 69 Pulse Rate [ Anterior Bilateral Throughout] Pulse Rate [ From Monitor] Respiratory 21 21 12 Rate Respiratory Rate [Anterior Bilateral Throughout] Blood Pressure 108/55 107/55 106/59 O2 Sat by Pulse 95 96 97 Oximetry 02/15/19 02/15/19 02/15/19 05:00 05:11 05:15 Temperature Pulse Rate 71 71 70 Pulse Rate [ Anterior Bilateral Throughout] Pulse Rate [ From Monitor] Respiratory 25 H 25 H 17 Rate Respiratory Rate [Anterior Bilateral Throughout] Blood Pressure 107/56 107/56 100/54 O2 Sat by Pulse 96 97 94 Oximetry 02/15/19 02/15/19 02/15/19 05:30 05:45 06:00 Temperature Pulse Rate 72 68 68 Pulse Rate [ Anterior Bilateral Throughout] Pulse Rate [ From Monitor] Respiratory 23 20 20 Rate Respiratory Rate [Anterior Bilateral Throughout] Blood Pressure 116/50 113/56 116/57 O2 Sat by Pulse 95 96 93 Oximetry 02/15/19 02/15/19 02/15/19 06:15 06:30 06:45 Temperature Pulse Rate 68 70 69 Pulse Rate [ Anterior Bilateral Throughout] Pulse Rate [ From Monitor] Respiratory 20 21 21 Rate Respiratory Rate [Anterior Bilateral Throughout] Blood Pressure 115/61 121/58 113/59 O2 Sat by Pulse 97 95 Oximetry 02/15/19 02/15/19 02/15/19 07:00 07:15 07:30 Temperature Pulse Rate 73 67 68 Pulse Rate [ Anterior Bilateral Throughout] Pulse Rate [ From Monitor] Respiratory 19 20 20 Rate Respiratory Rate [Anterior Bilateral Throughout] Blood Pressure 101/62 97/55 102/54 O2 Sat by Pulse 98 97 95 Oximetry 02/15/19 02/15/19 02/15/19 07:45 08:00 08:16 Temperature 100.4 F H Pulse Rate 68 72 72 Pulse Rate [ Anterior Bilateral Throughout] Pulse Rate [ From Monitor] Respiratory 20 21 19 Rate Respiratory Rate [Anterior Bilateral Throughout] Blood Pressure 99/54 101/62 122/67 O2 Sat by Pulse 97 96 97 Oximetry 02/15/19 02/15/19 02/15/19 08:30 08:45 08:50 Temperature Pulse Rate 67 72 Pulse Rate [ 77 Anterior Bilateral Throughout] Pulse Rate [ From Monitor] Respiratory 25 H 22 Rate Respiratory 20 Rate [Anterior Bilateral Throughout] Blood Pressure 133/67 131/59 O2 Sat by Pulse 96 95 Oximetry 02/15/19 02/15/19 09:02 12:00 Temperature 100.1 F H Pulse Rate Pulse Rate [ Anterior Bilateral Throughout] Pulse Rate [ From Monitor] Respiratory Rate Respiratory Rate [Anterior Bilateral Throughout] Blood Pressure O2 Sat by Pulse 99 Oximetry - General Appearance General appearance: well-developed, well-nourished EENT: ATNC, PERRL, mucous membranes moist Neck: no JVD Respiratory: Present: Clear to Ascultation Cardiology: regular, S1S2 Gastrointestinal: normal, normoactive bowel sounds Integumentary: no rash Neurologic: other (awake , obeys commands. ) Psychiatric: mood/affect appropriate - Lab 02/15/19 07:55 02/15/19 05:23 Most recent lab results ABG pH 7.368 pH Units (7.350-7.450) 02/14/19 18:07 ABG pCO2 44.1 mm Hg 02/14/19 18:07 ABG pO2 86.4 mm Hg (80.0-90.0) 02/14/19 18:07 ABG HCO3 24.8 mmol/L (20.0-26.0) 02/14/19 18:07 ABG O2 Saturation 96.7 % (95.0-99.0) 02/14/19 18:07 Calcium 8.3 mg/dL (8.4-10.2) L 02/15/19 05:23 Phosphorus 4.10 mg/dL (2.5-4.5) 02/09/19 12:47 Urine Creatinine 162.4 mg/dL (0.1-20.0) H 02/09/19 14:30 Urine Sodium 38 mmol/L 02/09/19 14:30 Urine Total Protein 49 mg/dL (5-11.8) H 02/09/19 14:30 - Imaging Chest x-ray: image reviewed (cxr reviewed with improvement in edema. ) Medications & Allergies - Medications Allergies/Adverse Reactions: Allergies No Known Allergies Allergy (Verified 06/21/16 01:02) Home Medications: Home Medications Medication Instructions Recorded Confirmed Last Taken Type Fluticasone [Flonase] 50 mcg IH Q4-6H PRN 06/21/16 02/10/19 Unknown History Gabapentin [Neurontin] 800 mg PO Q8H 06/21/16 02/10/19 06/19/16 History Glimepiride [Amaryl] 2 mg PO QAM 06/21/16 02/10/19 06/20/16 History Insulin Glargine,Hum.rec.anlog 100 units SUB-Q QHS 06/21/16 02/10/19 06/19/16 History [Lantus Solostar] Lisinopril [Zestril TAB] 40 mg PO QDAY 06/21/16 02/10/19 06/20/16 History Metformin HCl [Metformin HCl ER] 500 mg PO BID 06/21/16 02/10/19 06/20/16 History amLODIPine [Norvasc] 5 mg PO DAILY 06/21/16 02/10/19 06/20/16 History Albuterol Sulfate [Albuterol 0.63% 0.63 mg IH TID PRN #1 box 06/22/16 02/10/19 Unknown Rx NEBS] Azithromycin [Zithromax TAB] 250 mg PO QDAY #6 tablet 06/22/16 02/10/19 Unknown Rx Benzonatate [Tessalon Perles] 100 mg PO Q8HR #30 capsule 06/22/16 02/10/19 Unkn own Rx Ipratropium [Atrovent NEB] 0.5 mg IH Q8HRT #1 box 06/22/16 02/10/19 Unknown Rx Nebulizer and Compressor 1 each MC DAILY PRN #1 each 06/22/16 02/10/19 Unknown Rx [Devilbiss Pulmoneb Lt Comp-Neb] Prednisone [predniSONE 10 mg 10 mg PO .TAPER #1 tab.ds.pk 06/22/16 02/10/19 Unknown Rx (6-Day Pack, 21 Tabs)] Active Medications: Generic Name Dose Route Start Last Admin Trade Name Freq PRN Reason Stop Dose Admin Acetaminophen 650 mg 02/09/19 22:59 Tylenol PO Q4H PRN Pain MILD(1-3)/Fever >100.5/ARREDONDO Albumin Human 25 gm 02/11/19 12:02 Alburx 25% (Albumin) IV TREVA PRN Hypotension Albuterol 1.25 mg 02/10/19 01:36 Proventil IH TIDRT PRN Shortness Of Breath Albuterol/Ipratropium 1 ampul 02/10/19 14:00 02/15/19 08:50 Duoneb *Not For Prn Use* IH 1 ampul Q6HRT YISEL Administration Dextrose 50 ml 02/13/19 18:56 D50w (25gm) Syringe IV Q30MIN PRN Hypoglycemia Protocol Famotidine 20 mg 02/14/19 10:00 02/15/19 10:41 Pepcid PO 20 mg DAILY YISEL Administration Gabapentin 800 mg 02/09/19 23:00 02/15/19 05:28 Gabapentin PO Not Given Q8HR YISEL Heparin Sodium (Porcine) 5,000 unit 02/10/19 22:00 02/15/19 10:42 Heparin SUB-Q 5,000 unit Q12HR YISEL Administration Hydromorphone HCl 0.25 mg 02/09/19 22:59 Dilaudid IV Q3H PRN Pain, Moderate (4-6) Cefepime HCl 1 gm in 100 mls @ 200 mls/hr 02/10/19 16:00 02/14/19 19:06 Cefepime/Ns 1 Gm/100 Ml IV 200 mls/hr Q24H YISEL Administration Sodium Chloride 100 mls @ 999 mls/hr 02/11/19 12:02 Nacl 0.9% IV TREVA PRN Hypotension Norepinephrine 4 mg in 250 mls @ 7.5 mls/hr 02/11/19 14:00 02/15/19 12:34 Levophed Drip 4 Mg/Ns 250 Ml IV 2 mcg/min TITR YISEL 7.5 mls/hr Titration Protocol 2 MCG/MIN Metronidazole 500 mg in 100 mls @ 100 mls/hr 02/14/19 14:00 02/15/19 05:22 Flagyl 500 Mg/100 Ml IV 100 mls/hr Q8HR YISEL Administration Protocol Fluconazole 200 mg in 100 mls @ 100 mls/hr 02/14/19 13:00 02/15/19 10:42 Diflucan IV 100 mls/hr Q24HR YISEL Administration Protocol Insulin Glargine 5 units 02/14/19 13:00 02/15/19 08:51 Lantus SUB-Q 5 units QAMDIAB YISEL Administration Insulin Human Lispro 0 unit 02/13/19 19:00 02/15/19 05:45 Humalog SUB-Q 4 unit Q6HR YISEL Administration Protocol Ondansetron HCl 4 mg 02/09/19 22:59 Zofran IV Q8H PRN Nausea And Vomiting Oxycodone/Acetaminophen 1 tab 02/09/19 22:59 Percocet 5/325 PO Q6H PRN Pain, Moderate (4-6) Sodium Chloride 10 ml 02/10/19 10:00 02/14/19 22:28 Sodium Chloride Flush Syringe 10 Ml IV 10 ml BID YISEL Administration Sodium Chloride 10 ml 02/09/19 22:59 02/10/19 06:44 Sodium Chloride Flush Syringe 10 Ml IV 10 ml PRN PRN Administration LINE FLUSH
--- NOTE | 2019-02-15 14:43 | Cat Scan Report ---
CT ABDOMEN AND PELVIS WITHOUT CONTRAST HISTORY: septic shock of unclear etiology. COMPARISON: CT chest without contrast from 02/13/2019 TECHNIQUE: CT images of the abdomen and pelvis were obtained without administration of intravenous co ntrast. All CT scans at this location are performed using CT dose reduction for ALARA by means of au tomated exposure control. FINDINGS: Lungs/bones: There is mild bibasilar atelectasis. There are degenerative changes throughout the spin e and pelvis with no acute osseous abnormality identified. Abdomen/pelvis: The liver, gallbladder, spleen, pancreas, right adrenal gland, kidneys, and proximal GI tract appear unremarkable. There is a small left adrenal adenoma. Urinary bladder is collapsed with a Mota catheter in place. No pelvic free fluid or acute colonic ab normality identified. There is a right femoral line in place with tip terminating at the bifurcation into the common iliac veins. There is generalized subcutaneous edema and skin induration with subcutaneous air over the left proxi mal thigh and inguinal region. No abscess formation identified. Small amount of air is seen tracking into the superior aspect of the anterior compartment of the thigh. IMPRESSION: 1. Abnormal soft tissue findings as outlined above worrisome for Mariaa's gangrene or necrotizing f asciitis. CRITICAL RESULT: Time of Discovery (POULTRY PROCESSOR/CDT): 1:36 PM Time of Communication (POULTRY PROCESSOR/CDT): 1:38 PM Licensed Practitioner Receiving Report: Dr. Hernandez Read Back Performed: Not applicable. Signer Name: Damian Mejia MD Signed: 02/15/2019 2:39 PM Workstation Name: [id number]
[2019-02-15] MEDS ORDERED: SODIUM CHLORIDE 0.9% 500 ML 500 ML IV ONE (14:55)
[2019-02-15] MEDS ORDERED: VANCOMYCIN PHARMACY TO DOSE IV SCH (15:00)
--- NOTE | 2019-02-15 15:24 | Progress Note ---
Assessment and Plan Cultures: Blood culture 02/10/2019 no growth so far Urine culture 02/09/2019 negative. Assessment: 68 y/o female with history of morbid obesity, asthma/COPD, CHF admitted from home on 02/09/2019 due to one week of altered mental status and weakness, she was treated for a "lung infection" at home started 2 days ago: 1) Severe sepsis with septic shock: back on pressors, worsening leukocytosis now 40K; etiology likely necrotizing fascitis of left thigh +/- JESÚS now on HD. 2) Left thigh necrotizing fascitis: seen on CT 3) UTI: initial Ua with 32 wbc and moderate LE. Urine cx no growth 4) AMS: likely due to sepsis/hypoglycemia/high ammonia. Improving 5) JESÚS s/p urgent HD - improving Recs: appreciate Dr Hernandez calling surgical consult stat stop cefepime, metronidazole start vancomycin, meropenem and clindamycin renally adjusted stat continue fluconazole to cover intra-abdominal source Will follow. Becca Jimenez MD Infectious Diseases Communications Coordinator [facility] ([facility]) M [phone] O [phone] Subjective Date of service: 02/15/19 Principal diagnosis: Ac. hypercapnic resp. failure; Severe Sepsis with Shock; JESÚS on CKD; AUDI Interval history: Remains somnolent, follows commands, talking on NC O2 tmax 100.4, family at bedside Objective - Exam Narrative Exam: Constitutional: alert talking. No acute distress on NC O2 morbidly obese Head, Ears, Nose: Normocephalic, atraumatic. External ears, nose normal Eyes: Conjunctivae/corneas clear. No icterus. No ptosis. Neck: Supple, no meningeal signs Oral: limited Cardiovascular: S1, S2 normal. Respiratory: distant BS GI: Soft, +massive pannus difficult exam Musculoskeletal:+silvio leg edema, left inner thigh indurated. Rectal exam +copious crystal jelly substance Skin: No rash or abscess Hem/Lymphatic: No palpable cervical or supraclavicular nodes. No lymphangitis Psych: no agitated Neurological: alert follows commands +right fem cath - Constitutional Vitals: Vital Signs Temp Pulse Resp BP Pulse Ox 100.1 F H 76 21 109/58 97 02/15/19 12:00 02/15/19 15:00 02/15/19 15:00 02/15/19 15:00 02/15/19 15:00 Temperature -Last 24 Hours Temperature 100.1 F Temperature 100.4 F Temperature 99.6 F Temperature 99.3 F Temperature 99.3 F Temperature 99.5 F Temperature 98.9 F Temperature 98.2 F Temperature 98.5 F - Labs CBC & Chem 7: 02/15/19 07:55 02/15/19 05:23 Labs: Abnormal lab results 02/09/19 02/09/19 02/14/19 Range/Units 19:03 19:03 16:52 WBC (4.5-11.0) K/mm3 RBC (3.65-5.03) M/mm3 Hgb (10.1-14.3) gm/dl Hct (30.3-42.9) % MCV (79-97) fl RDW (13.2-15.2) % Plt Count (140-440) K/mm3 ABG Hemoglobin (12.0-16.0) gm/dl Oxyhemoglobin (95.0-99.0) % Potassium (3.6-5.0) mmol/L BUN (7-17) mg/dL Creatinine (0.7-1.2) mg/dL Glucose (65-100) mg/dL POC Glucose 210 H (70-105) Calcium (8.4-10.2) mg/dL Albumin 2.4 L (3.8-4.8) g/dL Zahqp-3-Pbwqlobps 0.5 H (0.2-0.3) g/dL Beta Globulins 2.8 H (0.2-0.5) g/dL Gamma Globulins 0.7 L (0.8-1.7) g/dL Abnorm Protein Band 1 2.7 H g/dL Abnorm Protein Band 2 0.3 H g/dL PEP Interpretation see below H Immunofix Electrophor see below H 02/14/19 02/14/19 02/14/19 Range/Units 18:07 18:46 23:44 WBC (4.5-11.0) K/mm3 RBC (3.65-5.03) M/mm3 Hgb (10.1-14.3) gm/dl Hct (30.3-42.9) % MCV (79-97) fl RDW (13.2-15.2) % Plt Count (140-440) K/mm3 ABG Hemoglobin 8.0 L (12.0-16.0) gm/dl Oxyhemoglobin 93.9 L (95.0-99.0) % Potassium (3.6-5.0) mmol/L BUN (7-17) mg/dL Creatinine (0.7-1.2) mg/dL Glucose (65-100) mg/dL POC Glucose 244 H 184 H (70-105) Calcium (8.4-10.2) mg/dL Albumin (3.8-4.8) g/dL Aumyp-0-Fkjwbfdcx (0.2-0.3) g/dL Beta Globulins (0.2-0.5) g/dL Gamma Globulins (0.8-1.7) g/dL Abnorm Protein Band 1 g/dL Abnorm Protein Band 2 g/dL PEP Interpretation Immunofix Electrophor 02/15/19 02/15/19 02/15/19 Range/Units 05:23 05:43 07:55 WBC 37.5 H (4.5-11.0) K/mm3 RBC 2.20 L (3.65-5.03) M/mm3 Hgb 7.1 L (10.1-14.3) gm/dl Hct 22.4 L (30.3-42.9) % MCV 102 H (79-97) fl RDW 16.0 H (13.2-15.2) % Plt Count 138 L (140-440) K/mm3 ABG Hemoglobin (12.0-16.0) gm/dl Oxyhemoglobin (95.0-99.0) % Potassium 3.4 L (3.6-5.0) mmol/L BUN 49 H (7-17) mg/dL Creatinine 2.7 H (0.7-1.2) mg/dL Glucose 197 H (65-100) mg/dL POC Glucose 202 H (70-105) Calcium 8.3 L (8.4-10.2) mg/dL Albumin (3.8-4.8) g/dL Mloav-6-Ftfqkgaxv (0.2-0.3) g/dL Beta Globulins (0.2-0.5) g/dL Gamma Globulins (0.8-1.7) g/dL Abnorm Protein Band 1 g/dL Abnorm Protein Band 2 g/dL PEP Interpretation Immunofix Electrophor 02/15/19 Range/Units 11:51 WBC (4.5-11.0) K/mm3 RBC (3.65-5.03) M/mm3 Hgb (10.1-14.3) gm/dl Hct (30.3-42.9) % MCV (79-97) fl RDW (13.2-15.2) % Plt Count (140-440) K/mm3 ABG Hemoglobin (12.0-16.0) gm/dl Oxyhemoglobin (95.0-99.0) % Potassium (3.6-5.0) mmol/L BUN (7-17) mg/dL Creatinine (0.7-1.2) mg/dL Glucose (65-100) mg/dL POC Glucose 240 H (70-105) Calcium (8.4-10.2) mg/dL Albumin (3.8-4.8) g/dL Rydsm-1-Zbhntilbo (0.2-0.3) g/dL Beta Globulins (0.2-0.5) g/dL Gamma Globulins (0.8-1.7) g/dL Abnorm Protein Band 1 g/dL Abnorm Protein Band 2 g/dL PEP Interpretation Immunofix Electrophor
--- NOTE | 2019-02-15 15:43 | Consultation ---
History of Present Illness Consult date: 02/15/19 Chief complaint: necrotizing fasciitis - History of present illness History of present illness: 68 yo F with DM, morbid obesity, COPD presented to hospital on 02/09/19 for AMS x 1week. Per family the patient has been less responsive. Normally, she ambulates and is interactive. Upon arrival to the ED patient was found to be hypoglycemic and lethargic. She was found to have JESÚS and was started on HD. All history obtained from chart and family at bedside. Patient has been febrile. Her WBC is trending upwards. She is hypotensive, on pressors. CT scan A/P performed today showed gas in the subcutaneous tissue of the left anterior thigh/inguinal region concerning for necrotizing fasciitis. Surgery was consulted for evaluation. Past History Past Medical History: CAD, COPD, diabetes, hypertension, other (morbid obesity) Past Surgical History: No surgical history, Other (exploratory laparotomy) Social history: no significant social history, lives with family Family history: hypertension Medications and Allergies Allergies Allergy/AdvReac Type Severity Reaction Status Date / Time No Known Allergies Allergy Verified 06/21/16 01:02 Home Medications Medication Instructions Recorded Confirmed Last Taken Type Fluticasone [Flonase] 50 mcg IH Q4-6H PRN 06/21/16 02/10/19 Unknown History Gabapentin [Neurontin] 800 mg PO Q8H 06/21/16 02/10/19 06/19/16 History Glimepiride [Amaryl] 2 mg PO QAM 06/21/16 02/10/19 06/20/16 History Insulin Glargine,Hum.rec.anlog 100 units SUB-Q QHS 06/21/16 02/10/19 06/19/16 History [Lantus Solostar] Lisinopril [Zestril TAB] 40 mg PO QDAY 06/21/16 02/10/19 06/20/16 History Metformin HCl [Metformin HCl ER] 500 mg PO BID 06/21/16 02/10/19 06/20/16 History amLODIPine [Norvasc] 5 mg PO DAILY 06/21/16 02/10/19 06/20/16 History Albuterol Sulfate [Albuterol 0.63% 0.63 mg IH TID PRN #1 box 06/22/16 02/10/19 Unknown Rx NEBS] Azithromycin [Zithromax TAB] 250 mg PO QDAY #6 tablet 06/22/16 02/10/19 Unknown Rx Benzonatate [Tessalon Perles] 100 mg PO Q8HR #30 capsule 06/22/16 02/10/19 Unknown Rx Ipratropium [Atrovent NEB] 0.5 mg IH Q8HRT #1 box 06/22/16 02/10/19 Unknown Rx Nebulizer and Compressor 1 each MC DAILY PRN #1 each 06/22/16 02/10/19 Unknown Rx [Devilbiss Pulmoneb Lt Comp-Neb] Prednisone [predniSONE 10 mg 10 mg PO .TAPER #1 tab.ds.pk 06/22/16 02/10/19 Unknown Rx (6-Day Pack, 21 Tabs)] Active Meds: Active Medications Acetaminophen (Tylenol) 650 mg PO Q4H PRN PRN Reason: Pain MILD(1-3)/Fever >100.5/ARREDONDO Albumin Human (Alburx 25% (Albumin)) 25 gm IV TREVA PRN PRN Reason: Hypotension Albuterol (Proventil) 1.25 mg IH TIDRT PRN PRN Reason: Shortness Of Breath Albuterol/Ipratropium (Duoneb *Not For Prn Use*) 1 ampul IH Q6HRT [facility] Last Admin: 02/15/19 08:50 Dose: 1 ampul Documented by: Dextrose (D50w (25gm) Syringe) 50 ml IV Q30MIN PRN; Protocol PRN Reason: Hypoglycemia Famotidine (Pepcid) 20 mg PO DAILY [facility] Last Admin: 02/15/19 10:41 Dose: 20 mg Documented by: Gabapentin (Gabapentin) 800 mg PO Q8HR [facility] Last Admin: 02/15/19 05:28 Dose: Not Given Documented by: Heparin Sodium (Porcine) (Heparin) 5,000 unit SUB-Q Q12HR [facility] Last Admin: 02/15/19 10:42 Dose: 5,000 unit Documented by: Hydromorphone HCl (Dilaudid) 0.25 mg IV Q3H PRN PRN Reason: Pain, Moderate (4-6) Sodium Chloride (Nacl 0.9%) 100 mls @ 999 mls/hr IV TREVA PRN PRN Reason: Hypotension Norepinephrine (Levophed Drip 4 Mg/Ns 250 Ml) 4 mg in 250 mls @ 7.5 mls/hr IV TITR YISEL; Protocol Last Titration: 02/15/19 12:34 Dose: 2 mcg/min, 7.5 mls/hr Documented by: MEROPENEM/NS 1 GRAM/100 ML (Merrem/Ns 1 Gram/100 Ml) 1 gram in 100 mls @ 100 mls/hr IV Q24HR YISEL; Protocol Clindamycin HCl (Cleocin 900 Mg/50 Ml) 900 mg in 50 mls @ 100 mls/hr IV Q8HR YISEL; Protocol Vancomycin HCl (Vancomycin/Ns 1 Gm/250 Ml) 1 gm in 250 mls @ 167.007 mls/hr IV ONCE ONE; Protocol Stop: 02/15/19 23:29 Insulin Glargine (Lantus) 5 units SUB-Q QAMDIAB YISEL Last Admin: 02/15/19 08:51 Dose: 5 units Documented by: Insulin Human Lispro (Humalog) 0 unit SUB-Q Q6HR YISEL; Protocol Last Admin: 02/15/19 05:45 Dose: 4 unit Documented by: Ondansetron HCl (Zofran) 4 mg IV Q8H PRN PRN Reason: Nausea And Vomiting Oxycodone/Acetaminophen (Percocet 5/325) 1 tab PO Q6H PRN PRN Reason: Pain, Moderate (4-6) Sodium Chloride (Sodium Chloride Flush Syringe 10 Ml) 10 ml IV BID YISEL Last Admin: 02/14/19 22:28 Dose: 10 ml Documented by: Sodium Chloride (Sodium Chloride Flush Syringe 10 Ml) 10 ml IV PRN PRN PRN Reason: LINE FLUSH Last Admin: 02/10/19 06:44 Dose: 10 ml Documented by: Review of Systems ROS unobtainable: due to mental status Exam Vital Signs Resp Pulse Ox 17 97 02/09/19 08:46 02/09/19 08:46 Narrative exam: Gen: Somnolent, does not follow commands. Opens eyes spontaneously ENT: no scleral icterus CV: s1, S2+ Resp: even and unlabored Abd; soft, NT, ND, morbid obesity with large panus. Well healed midline scar Ext: No obvious wounds. Mild edema of left upper thigh/groin. + crepitus of left upper thigh/groin with severe TTP upon palpation. No drainage, fluctuance. R thigh unremarkable without TTP : Mota Results - Labs 02/15/19 07:55 02/15/19 05:23 Abnormal lab results 02/09/19 02/09/19 02/14/19 Range/Units 19:03 19:03 16:52 WBC (4.5-11.0) K/mm3 RBC (3.65-5.03) M/mm3 Hgb (10.1-14.3) gm/dl Hct (30.3-42.9) % MCV (79-97) fl RDW (13.2-15.2) % Plt Count (140-440) K/mm3 ABG Hemoglobin (12.0-16.0) gm/dl Oxyhemoglobin (95.0-99.0) % Potassium (3.6-5.0) mmol/L BUN (7-17) mg/dL Creatinine (0.7-1.2) mg/dL Glucose (65-100) mg/dL POC Glucose 210 H (70-105) Calcium (8.4-10.2) mg/dL Albumin 2.4 L (3.8-4.8) g/dL Gmftn-8-Ozonkdxab 0.5 H (0.2-0.3) g/dL Beta Globulins 2.8 H (0.2-0.5) g/dL Gamma Globulins 0.7 L (0.8-1.7) g/dL Abnorm Protein Band 1 2.7 H g/dL Abnorm Protein Band 2 0.3 H g/dL PEP Interpretation see below H Immunofix Electrophor see below H 02/14/19 02/14/19 02/14/19 Range/Units 18:07 18:46 23:44 WBC (4.5-11.0) K/mm3 RBC (3.65-5.03) M/mm3 Hgb (10.1-14.3) gm/dl Hct (30.3-42.9) % MCV (79-97) fl RDW (13.2-15.2) % Plt Count (140-440) K/mm3 ABG Hemoglobin 8.0 L (12.0-16.0) gm/dl Oxyhemoglobin 93.9 L (95.0-99.0) % Potassium (3.6-5.0) mmol/L BUN (7-17) mg/dL Creatinine (0.7-1.2) mg/dL Glucose (65-100) mg/dL POC Glucose 244 H 184 H (70-105) Calcium (8.4-10.2) mg/dL Albumin (3.8-4.8) g/dL Pdlhz-9-Ismrxrhtw (0.2-0.3) g/dL Beta Globulins (0.2-0.5) g/dL Gamma Globulins (0.8-1.7) g/dL Abnorm Protein Band 1 g/dL Abnorm Protein Band 2 g/dL PEP Interpretation Immunofix Electrophor 02/15/19 02/15/19 02/15/19 Range/Units 05:23 05:43 07:55 WBC 37.5 H (4.5-11.0) K/mm3 RBC 2.20 L (3.65-5.03) M/mm3 Hgb 7.1 L (10.1-14.3) gm/dl Hct 22.4 L (30.3-42.9) % MCV 102 H (79-97) fl RDW 16.0 H (13.2-15.2) % Plt Count 138 L (140-440) K/mm3 ABG Hemoglobin (12.0-16.0) gm/dl Oxyhemoglobin (95.0-99.0) % Potassium 3.4 L (3.6-5.0) mmol/L BUN 49 H (7-17) mg/dL Creatinine 2.7 H (0.7-1.2) mg/dL Glucose 197 H (65-100) mg/dL POC Glucose 202 H (70-105) Calcium 8.3 L (8.4-10.2) mg/dL Albumin (3.8-4.8) g/dL Kegul-3-Pxtmyngvp (0.2-0.3) g/dL Beta Globulins (0.2-0.5) g/dL Gamma Globulins (0.8-1.7) g/dL Abnorm Protein Band 1 g/dL Abnorm Protein Band 2 g/dL PEP Interpretation Immunofix Electrophor 02/15/19 Range/Units 11:51 WBC (4.5-11.0) K/mm3 RBC (3.65-5.03) M/mm3 Hgb (10.1-14.3) gm/dl Hct (30.3-42.9) % MCV (79-97) fl RDW (13.2-15.2) % Plt Count (140-440) K/mm3 ABG Hemoglobin (12.0-16.0) gm/dl Oxyhemoglobin (95.0-99.0) % Potassium (3.6-5.0) mmol/L BUN (7-17) mg/dL Creatinine (0.7-1.2) mg/dL Glucose (65-100) mg/dL POC Glucose 240 H (70-105) Calcium (8.4-10.2) mg/dL Albumin (3.8-4.8) g/dL Swanw-1-Jzxpfjjyg (0.2-0.3) g/dL Beta Globulins (0.2-0.5) g/dL Gamma Globulins (0.8-1.7) g/dL Abnorm Protein Band 1 g/dL Abnorm Protein Band 2 g/dL PEP Interpretation Immunofix Electrophor Diabetes panel 02/09/19 02/15/19 Range/Units 19:03 05:23 Sodium 138 (137-145) mmol/L Potassium 3.4 L (3.6-5.0) mmol/L Chloride 98.3 (98-107) mmol/L Carbon Dioxide 22 (22-30) mmol/L BUN 49 H (7-17) mg/dL Creatinine 2.7 H (0.7-1.2) mg/dL Glucose 197 H (65-100) mg/dL Calcium 8.3 L (8.4-10.2) mg/dL Albumin 2.4 L (3.8-4.8) g/dL Calcium panel 02/09/19 02/15/19 Range/Units 19:03 05:23 Calcium 8.3 L (8.4-10.2) mg/dL Albumin 2.4 L (3.8-4.8) g/dL Pituitary panel 02/15/19 Range/Units 05:23 Sodium 138 (137-145) mmol/L Potassium 3.4 L (3.6-5.0) mmol/L Chloride 98.3 (98-107) mmol/L Carbon Dioxide 22 (22-30) mmol/L BUN 49 H (7-17) mg/dL Creatinine 2.7 H (0.7-1.2) mg/dL Glucose 197 H (65-100) mg/dL Calcium 8.3 L (8.4-10.2) mg/dL Adrenal panel 02/09/19 02/15/19 Range/Units 19:03 05:23 Sodium 138 (137-145) mmol/L Potassium 3.4 L (3.6-5.0) mmol/L Chloride 98.3 (98-107) mmol/L Carbon Dioxide 22 (22-30) mmol/L BUN 49 H (7-17) mg/dL Creatinine 2.7 H (0.7-1.2) mg/dL Glucose 197 H (65-100) mg/dL Calcium 8.3 L (8.4-10.2) mg/dL Albumin 2.4 L (3.8-4.8) g/dL - Imaging CT scan - abdomen: report reviewed, image reviewed CT scan - pelvis: report reviewed, image reviewed Assessment and Plan 68 yo F with 1. septic shock 2. Probable necrotizing fasciitis of left thigh 3. morbid obesity 4. poorly controlled DM 5. protein calorie malnutrition - albumin 2.4 6. anemia 7. JESÚS on HD Plan: 1. NPO 2. Patient with no visible wounds but significant findings on CT scan of gas in left thigh, crepitus and pain out of proportion to physical exam on palpation of left thigh. Recommend emergent incision and drainage of left thigh and debridement of necrotizing fasciitis. 3. I discussed the diagnosis, imaging findings, and my recommendations with the patient's daughter and other family members at the bedside. All risks, benefits, alternatives to surgery discussed with them. Questions answered and consent obtained. 4. I extensively discussed possible need for blood transfusion with patient's family. The patient is a [employer]'s [employer] she refuses blood products. I explained that if blood transfusion is needed it could be life saving. The daughter declines blood transfusion in any situation, even life and . Blood refusal signed 5. I explained to family that patient will be intubated for procedure and likely remain intubated post operatively. 6. IVF 7. on pressors, wean as tolerated 8. continue broad spectrum abx per ID 9. wound cultures will be obtained in OR Pt to OR emergently. Pt with multiple risk factors for poor wound healing including poorly controlled DM, morbid obesity, malnutrition. Condition: Guarded Discussed with Dr. Hernandez. Thank you, please call with questions
[2019-02-15] MEDS: MEROPENEM/NS 1 GRAM/100 ML 1 GRAM/100 ML BAG IV SCH (15:46)
[2019-02-15] MEDS ORDERED: KETAMINE/STERILE WATER 50 MG/ML SYRINGE ONE (17:02)
[2019-02-15] MEDS ORDERED: PROPOFOL 200 MG/20 ML VIAL IV ONE (17:02)
[2019-02-15] MEDS ORDERED: fentaNYL 100 MCG/2 ML INJ ONE (17:02)
--- NOTE | 2019-02-15 17:06 | Anesthesia Consultation ---
Anesthesia Consult and Med Hx Date of service: 02/15/19 - Airway Anesthetic Teeth Evaluation: Edentulous ROM Head & Neck: Adequate Mental/Hyoid Distance: Adequate Mallampati Class: Class III Intubation Access Assessment: Possibly Difficult - Pre-Operative Health Status ASA Pre-Surgery Classification: ASA4 Proposed Anesthetic Plan: General, MAC - Pulmonary Hx Asthma: Yes - Cardiovascular System Hx Hypertension: Yes - Central Nervous System Hx Psychiatric Problems: No - Endocrine Hx Renal Disease: Yes Hx Insulin Dependent Diabetes: Yes - Hematic Hx Anemia: Yes - Other Systems Hx Obesity: Yes
--- NOTE | 2019-02-15 17:06 | Anesthesia Day of Surgery ---
Anesthesia Day of Surgery - Day of Surgery Patient Examined: Yes Patient H&P Reviewed: Yes Patient is NPO: Yes
[2019-02-15] MEDS ORDERED: ETOMIDATE 20 MG/10 ML INJ IV ONE (17:30)
[2019-02-15] MEDS ORDERED: PHENYLEPHRINE/NS 1,000 MCG/10 ML SYRINGE (OR USE) IV ONE (18:02)
[2019-02-15] MEDS ORDERED: SODIUM CHLORIDE 0.9% IRRIG SOLN 2000 ML IR ONE (18:11)
[2019-02-15] MEDS ORDERED: SODIUM CHLORIDE 0.9% IRR 1,500 ML BOTTLE IR ONE (18:13)
[2019-02-15] MEDS ORDERED: ROCURONIUM 50 MG/5 ML INJ IV ONE (18:20)
[2019-02-15] MEDS ORDERED: HYDROmorphone 1 MG/1 ML INJ ONE (18:30)
[2019-02-15] MEDS ORDERED: LIP THERAPY VASELINE TP PRN (18:50)
[2019-02-15] MEDS ORDERED: fentaNYL 100 MCG/2 ML INJ IV PRN (18:50)
[2019-02-15] MEDS ORDERED: MINERAL OIL/PETROLATUM, WHITE OPHTH OINT 3.5 GM OU PRN (18:50)
[2019-02-15] MEDS ORDERED: INSULIN REGULAR, HUMAN 100 UNITS/1 ML IV ONE (18:52)
[2019-02-15] MEDS ORDERED: PROPOFOL 1,000 MG/100 ML BOTTLE IV SCH (19:00)
--- NOTE | 2019-02-15 19:03 | Post Operative Note ---
Date of procedure: 02/15/19 Pre-op diagnosis: necrotizing fasciitis of left thigh, septic shock Post-op diagnosis: same Findings: Extensive necrotizing fasciitis of L thigh - wound measured 25cm x 2cm x 4cm (l x w x d) Procedure: incision and drainage with debridement of left thigh necrotizing fasciitis Anesthesia: SOPHIA Surgeon: CHEVY TEJADA Spa Director: NAMRATA ROJAS Estimated blood loss: 50-100ml Pathology: list (wound cultures) Specimen disposition: to lab Condition: stable Disposition: ICU
--- NOTE | 2019-02-15 19:03 | Event Note ---
Date: 02/15/19 Spoke with patient's daughter Janusz Tai after surgery to give her an update. She will notify sister, Howie Perez. Per Ms Tai, only her or Ms. Perez should be updated regarding patient condition. Patient's condition should not be discussed with other family members. We were not aware of this prior to surgery. She is understanding. Plan: 1. continue vent 2. propofol and fent gtt 3. pressors to maintain MAP>65 4. Do not remove or change surgical dressing 5. continue IV abx 6. post intubation CXR - ETT adequately positioned 7. OGT to be inserted to LIWS 8. Repeat CBC, BMP, INR in am 9. Will follow up in am
--- NOTE | 2019-02-15 19:53 | XRay Report ---
CHEST 1 VIEW INDICATION: ETT placement. COMPARISON: 2 days prior FINDINGS: Support devices: Endotracheal tube has been placed in satisfactory position with tip at the level of the clavicles. Heart: Stable. Lungs/Pleura: No acute pulmonary or pleural findings. IMPRESSION: 1. Endotracheal tube is in satisfactory position. ABDOMEN 2 VIEW(S) INDICATION / CLINICAL INFORMATION: Gastric tube placement. COMPARISON: None available. FINDINGS: TUBES / LINES: Esophagogastric tube tip is in the proximal stomach with side port in the region of th e diaphragmatic hiatus. BOWEL GAS PATTERN: No significant abnormality. FREE AIR / EXTRALUMINAL GAS: None seen. ADDITIONAL FINDINGS: No significant additional findings. IMPRESSION: 1. Esophagogastric tube tip in the proximal stomach with side port near the diaphragmatic hiatus. Thi s could be advanced a few centimeters. Signer Name: Luca Up MD Signed: 02/15/2019 7:49 PM Workstation Name: [id number]
[2019-02-15] MEDS: fentaNYL DRIP Premix 2,000 MCG/100 ML BAG IV SCH (21:10)
--- NOTE | 2019-02-15 21:26 | Post Anesthesia Evaluation ---
- Post Anesthesia Evaluation Patient Participated: No Airway Patent: Yes Stable Respiratory Function: Yes Nausea/Vomiting: No Temp > 96.8F: Yes Pain Manageable: Yes Adequeate Hydration: Yes Anesthesia Complications: No Block Receding Appropriately: Not Applicable Patient on Ventilator: Yes
[2019-02-15] MEDS ORDERED: VANCOMYCIN/NS 1 GM/250 ML 1 GM/250 ML BAG IV ONE (22:00)
[2019-02-15] MEDS: NORepinephrine 8 MG in SODIUM CHLORIDE 0.9% 250ML 242 ML IV SCH (23:29)
[2019-02-16] MEDS: INSULIN LISPRO 100 UNIT/ML SUB-Q SCH ×4 (00:13→18:01)
--- NOTE | 2019-02-16 02:42 | XRay Report ---
ABDOMEN 1 VIEW(S) INDICATION / CLINICAL INFORMATION: OG tube advanced. COMPARISON: None available. FINDINGS: TUBES / LINES: NG tube in satisfactory position. BOWEL GAS PATTERN: No significant abnormality. ADDITIONAL FINDINGS: No significant additional findings. IMPRESSION: Satisfactory NG tube placement. Signer Name: Ty Cervantes MD Signed: 02/16/2019 2:38 AM Workstation Name: [id number]
--- NOTE | 2019-02-16 03:32 | XRay Report ---
CHEST 1 VIEW INDICATION: follow up respiratory failure. COMPARISON: Previous day. FINDINGS: Support devices: Unchanged. Heart: Stable cardiomegaly. Lungs/Pleura: Persistent diminished lung volumes with mild vascular congestion. Additional findings: None. IMPRESSION: Persistent diminished lung volumes. Signer Name: Ty Cervantes MD Signed: 02/16/2019 3:27 AM Workstation Name: [id number]
[2019-02-16] MEDS: IPRATROPIUM/ALBUTEROL SULFATE 3 ML AMPUL.NEB IH SCH ×4 (03:42→20:09)
[2019-02-16] MEDS: ACETAMINOPHEN 325 MG TAB PO PRN ×3 (04:20→21:33)
[2019-02-16 05:54] LABS: Hematocrit 22.8 % (30.3-42.9); Hemoglobin 7.1 gm/dl (10.1-14.3); Mean Corpuscular HGB Conc 31 % (30-34); Mean Corpuscular Volume 102 fl (79-97); Platelet Count 156 K/mm3 (140-440); Red Blood Count 2.23 M/mm3 (3.65-5.03); Red Cell Distribution Width 16.1 % (13.2-15.2)
[2019-02-16] MEDS: GABAPENTIN 400 MG CAP PO SCH ×3 (05:55→21:35)
[2019-02-16 05:57] LABS: INR 1.54 (0.87-1.13)
[2019-02-16] MEDS: NORepinephrine 8 MG in SODIUM CHLORIDE 0.9% 250ML 242 ML IV SCH ×3 (06:04→20:24)
[2019-02-16 06:09] LABS: Calcium 8.3 mg/dL (8.4-10.2)
[2019-02-16 06:44] LABS: Band Neutrophils # (Manual) 1.9 K/mm3; Basophils % (Manual) 0 % (0.0-1.8); Eosinophils % (Manual) 0 % (0.0-4.3); Myelocytes # (Manual) 0.5 K/mm3; Total Cells Counted 100
[2019-02-16 06:48] LABS: Anisocytosis 1+; Hypochromasia Few; Target Cells Few; Tear Drop Cells Rare
[2019-02-16 06:49] LABS: Poikilocytosis Few
[2019-02-16 06:51] LABS: Platelet Estimate Consistent w Auto
[2019-02-16] MEDS: fentaNYL DRIP Premix 2,000 MCG/100 ML BAG IV SCH ×2 (07:27→17:36)
[2019-02-16] MEDS: INSULIN GLARGINE 100 UNITS/ML SUB-Q SCH ×2 (08:45→15:40)
--- NOTE | 2019-02-16 11:11 | Operative Report ---
PREOPERATIVE DIAGNOSIS: Necrotizing fasciitis of left thigh, septic shock. POSTOPERATIVE DIAGNOSIS: Necrotizing fasciitis of left thigh, septic shock. FINDINGS: Extensive necrotizing fasciitis of left thigh with wound measured at 25 cm x 2 cm x 4 cm (length x width x depth). PROCEDURE: Incision and drainage with debridement of left thigh necrotizing fasciitis. ANESTHESIA: General endotracheal anesthesia. SURGEON: Ludmila Clark DO SECOND BAKER SURGEON: Malorie Molina MD ESTIMATED BLOOD LOSS: 100 mL. PATHOLOGY: Deep wound culture. SPECIMEN DISPOSITION: To lab. CONDITION ON DISPOSITION: The patient is stable to PACU. HISTORY OF PRESENT ILLNESS AND INDICATIONS: The patient is a 68-year-old female who presented to the hospital on 02/09/2019 with 1-week of altered mental status per her family. She was found to have acute kidney injury with hyperkalemia, so she was started on hemodialysis. The patient was being treated empirically with antibiotics; however, her white blood cell count continued to trend upwards and she was recently started on pressors. A CT scan of the abdomen and pelvis was performed to rule out any source of infection and this showed gas in the subcutaneous tissue of the left anterior thigh and inguinal region concerning for necrotizing fasciitis. Upon examination of the patient, she did have crepitus on the left side; however, no visible wound. The recommendation was to take the patient to the operating room for emergent incision and drainage along with debridement of the infection. This was discussed at length with her daughter, Mrs. Tai. All risks, benefits, and alternatives of surgery were discussed and questions answered. Consent was obtained. The patient's family re-declined the transfusion of blood products as the patient is a Muslim. PROCEDURE IN DETAIL: The patient was identified in the preoperative area and the patient was taken back to the operating room and kept on her hospital bed. After the patient was intubated, the patient's large abdominal pannus was retracted and cephalad using tape. The left groin and upper thigh were prepped and draped in the usual sterile fashion. Timeout was performed. The area of crepitus was palpated and an incision was made in the upper thigh using a #10 blade. Dissection was carried down through the skin and subcutaneous tissue using the blade and immediately visible was necrotic tissue and a copious amount of pus. The incision was extended medially and laterally in order to unroof all of the necrotic tissue. The wound was probed bluntly with a gloved finger and all abscess cavities opened and loculations broken up. All visible necrotic subcutaneous tissue and fascia was debrided using forceps and scissors. The wound was copiously irrigated with 3 liters of saline using the pulse lavage. Hemostasis was carefully ensured using electrocautery and Vicryl suture. Once hemostasis was carefully ensured, two pieces of QuikClot were placed in the wound bed and Surgicel placed along the skin along the length of the incision. The wound was then packed with 2 pieces of Dakin's moistened Kerlix. This was covered with 4 x 4 fluff gauze, ABD pads and Medipore tape. The patient was kept intubated and taken back to the ICU in stable condition. At the end of the case, all sponge, instrument, sharp counts were correct x 2 and two QuikClot dressings were noted in the record as they were left in the wound. JOB# [id number] MARYLOU/APOLONIA RENTERIA
[2019-02-16] MEDS: FAMOTIDINE 20 MG/2 ML INJ IV SCH (13:07)
[2019-02-16] MEDS: FLUCONAZOLE 200 MG 200 MG/100 ML BAG IV SCH (13:12)
[2019-02-16] MEDS: MEROPENEM/NS 1 GRAM/100 ML 1 GRAM/100 ML BAG IV SCH (13:12)
--- NOTE | 2019-02-16 14:06 | Progress Note ---
Assessment and Plan Assessment and plan: Patient is a 68 yo AA woman with a history of morbid obesity, asthma/COPD, DM type 2, hypertension, CHF, advance Dementia, CKD 4 and AUDI on cpap, who presented from home to [facility] ED on 02/09/2019 due to altered mental status and weakness. She was treated for a "lung infection" at home 2 days ago prior to arrival. * CTH neg * Renal US neg * Cultures: Blood culture 02/10/2019 no growth so far and Urine culture 02/09/2019 negative. * CT chest without contrast IMPRESSION: Low lung volumes with patchy bibasilar density that appears most consistent with subsegmental atelectasis. No convincing evidence of pneumonia. No pericardial or pleural effusion. Date of procedure: 02/15/19 Pre-op diagnosis: necrotizing fasciitis of left thigh, septic shock Post-op diagnosis: same Findings: Extensive necrotizing fasciitis of L thigh - wound measured 25cm x 2cm x 4cm (l x w x d) Procedure: incision and drainage with debridement of left thigh necrotizing fasciitis Anesthesia: GETA Septic Shock from necrotizing fasciitis of L thigh, poa s/p excisional debribement Sepsis from Necrotizing fascitis causing extremely high WBC: ID following, ordered CT abd/pelvis without contrast which was done and found to have necrotizing fasciitis of left thigh, septic shock and went immediately to OR JESÚS/CKD 4, suspected due to ATN, Sp Vas cath, started on urgent HD on 02/10, cont HD per [facility] Severe sepsis from UTI with septic shock, poa: triate off the 2mcg levophed IV gtt etiology likely necrotizing fasciitis with UTI, now on 20 mcg of Levophed Acute metabolic encephalopathy-Most likely due to uremia, should improve with dialysis, BUN still elevated to the at 60 Acute hypoxic resp failure, now on MV after surgery: trying to wean off, Pulm is following and managing. DM with hypoglycemia episodes resolved, a1c 8.5, received Sulfonylureas 02/09, treated with d10 drip, monitored off SSI, now hyperglycemia, will restart SSI DVT ppx- heparin sq Disposition: continue ICU care, trying to wean off levophed, up to 20 mcg/hr full code CCT 39 minutes History Interval history: Patient was seen and examined. Follow-up on current diagnosis Respiratory failure. No overnight events reported to me. Imaging, nursing note, chart, labs and old chart reviewed. Patient is intubated and sedated Hospitalist Physical - Physical exam Narrative exam: Gen: morbid obese, chronically ill appearing, bmi 63.6, NAD, Awake, Alert, Orientated x 1 HEENT: NCAT, EOMI, PERRL, OP Clear Neck: supple, no adenopathy, no thyromegaly, no JVD CVS/Heart: RRR, normal S1S2, pulses present bilaterally Chest/Lungs: diminished bs bilateral, Symmetrical chest expansion, adequate air entry bilaterally GI/Abdomen: soft, NTND, good bowel sounds, no guarding or rebound /Bladder: no suprapubic tenderness, no CVA or paraspinal tenderness Extermity/Skin: no c/c/e, no obvious rash MSK: FROM x 4, resist movement, doesn't follow commands Neuro: CN 2-12 grossly intact, doesn't follow commands Psych: calm but confused - Constitutional Vitals: Temp Pulse Resp BP Pulse Ox 97.8 F 67 20 116/54 99 02/16/19 10:00 02/16/19 12:45 02/16/19 12:00 02/16/19 12:45 02/16/19 12:39 General appearance: Present: no acute distress, well-nourished Results - Labs CBC & Chem 7: 02/16/19 05:15 02/16/19 05:15 Labs: Laboratory Last Values WBC 44.0 K/mm3 (4.5-11.0) H* 02/16/19 05:15 RBC 2.23 M/mm3 (3.65-5.03) L 02/16/19 05:15 Hgb 7.1 gm/dl (10.1-14.3) L 02/16/19 05:15 Hct 22.8 % (30.3-42.9) L 02/16/19 05:15 MCV 102 fl (79-97) H 02/16/19 05:15 MCH 32 pg (28-32) 02/16/19 05:15 MCHC 31 % (30-34) 02/16/19 05:15 RDW 16.1 % (13.2-15.2) H 02/16/19 05:15 Plt Count 156 K/mm3 (140-440) 02/16/19 05:15 Lymph % (Auto) Systems Support Officer 02/10/19 09:28 [place] % (Auto) Systems Support Officer 02/10/19 09:28 Eos % (Auto) Systems Support Officer 02/10/19 09:28 Baso % (Auto) Systems Support Officer 02/10/19 09:28 Lymph # Systems Support Officer 02/10/19 09:28 [place] # Systems Support Officer 02/10/19 09:28 Eos # Systems Support Officer 02/10/19 09:28 Baso # Systems Support Officer 02/10/19 09:28 Add Manual Diff Complete 02/16/19 05:15 Total Counted 100 02/16/19 05:15 Seg Neutrophils % Systems Support Officer 02/13/19 05:12 Seg Neuts % (Manual) 82.0 % (40.0-70.0) H 02/16/19 05:15 Band Neutrophils % 4.0 % 02/16/19 05:15 Lymphocytes % (Manual) 7.0 % (13.4-35.0) L 02/16/19 05:15 Reactive Lymphs % (Man) 0 % 02/16/19 05:15 Monocytes % (Manual) 1.0 % (0.0-7.3) 02/16/19 05:15 Eosinophils % (Manual) 0 % (0.0-4.3) 02/16/19 05:15 Basophils % (Manual) 0 % (0.0-1.8) 02/16/19 05:15 Metamyelocytes % 5.0 % 02/16/19 05:15 Myelocytes % 1.0 % 02/16/19 05:15 Promyelocytes % 0 % 02/16/19 05:15 Blast Cells % 0 % 02/16/19 05:15 Nucleated RBC % 6.0 % (0.0-0.9) H 02/16/19 05:15 Seg Neutrophils # Systems Support Officer 02/10/19 09:28 Seg Neutrophils # Man 38.2 K/mm3 (1.8-7.7) H 02/16/19 05:15 Band Neutrophils # 1.9 K/mm3 02/16/19 05:15 Lymphocytes # (Manual) 3.3 K/mm3 (1.2-5.4) 02/16/19 05:15 Abs React Lymphs (Man) 0.0 K/mm3 02/16/19 05:15 Monocytes # (Manual) 0.5 K/mm3 (0.0-0.8) 02/16/19 05:15 Eosinophils # (Manual) 0.0 K/mm3 (0.0-0.4) 02/16/19 05:15 Basophils # (Manual) 0.0 K/mm3 (0.0-0.1) 02/16/19 05:15 Metamyelocytes # 2.3 K/mm3 02/16/19 05:15 Myelocytes # 0.5 K/mm3 02/16/19 05:15 Promyelocytes # 0.0 K/mm3 02/16/19 05:15 Blast Cells # 0.0 K/mm3 02/16/19 05:15 Pathologist Review 02/16/19 05:15 WBC Morphology Not Reportable 02/13/19 05:12 Hypersegmented Neuts Not Reportable 02/16/19 05:15 Hyposegmented Neuts Not Reportable 02/16/19 05:15 Hypogranular Neuts Not Reportable 02/16/19 05:15 Smudge Cells Not Reportable 02/16/19 05:15 Toxic Granulation Not Reportable 02/16/19 05:15 Toxic Vacuolation Not Reportable 02/16/19 05:15 Dohle Bodies Not Reportable 02/16/19 05:15 Pelger-Huet Anomaly Not Reportable 02/16/19 05:15 Casey Rods Not Reportable 02/16/19 05:15 Platelet Estimate Consistent w auto 02/16/19 05:15 Clumped Platelets Not Reportable 02/16/19 05:15 Plt Clumps, EDTA Not Reportable 02/16/19 05:15 Large Platelets Not Reportable 02/16/19 05:15 Giant Platelets Not Reportable 02/16/19 05:15 Platelet Satelliting Not Reportable 02/16/19 05:15 Plt Morphology Comment Not Reportable 02/16/19 05:15 RBC Morphology Not Reportable 02/16/19 05:15 Dimorphic RBCs Not Reportable 02/16/19 05:15 Polychromasia Rare 02/16/19 05:15 Hypochromasia Few 02/16/19 05:15 Poikilocytosis Few 02/16/19 05:15 Anisocytosis 1+ 02/16/19 05:15 Microcytosis Few 02/16/19 05:15 Macrocytosis Not Reportable 02/16/19 05:15 Spherocytes Not Reportable 02/16/19 05:15 Pappenheimer Bodies Not Reportable 02/16/19 05:15 Sickle Cells Not Reportable 02/16/19 05:15 Target Cells Few 02/16/19 05:15 Tear Drop Cells Rare 02/16/19 05:15 Ovalocytes Not Reportable 02/16/19 05:15 Helmet Cells Not Reportable 02/16/19 05:15 [place] Bodies Not Reportable 02/16/19 05:15 [place] Rings Not Reportable 02/16/19 05:15 Karina Cells Not Reportable 02/16/19 05:15 Bite Cells Not Reportable 02/16/19 05:15 Crenated Cell Not Reportable 02/16/19 05:15 Elliptocytes Not Reportable 02/16/19 05:15 Acanthocytes (Spur) Not Reportable 02/16/19 05:15 Rouleaux Not Reportable 02/16/19 05:15 Hemoglobin C Crystals Not Reportable 02/16/19 05:15 Schistocytes Not Reportable 02/16/19 05:15 Malaria parasites Not Reportable 02/16/19 05:15 Emanuel Bodies Not Reportable 02/16/19 05:15 Hem Pathologist Commnt Sent to pathology 02/16/19 05:15 PT 18.3 Sec. (12.2-14.9) H 02/16/19 05:15 INR 1.54 (0.87-1.13) H 02/16/19 05:15 APTT 36.0 Sec. (24.2-36.6) 02/09/19 09:16 POC ABG pH 7.309 (7.35-7.45) L 02/16/19 04:47 ABG pH 7.368 pH Units (7.350-7.450) 02/14/19 18:07 POC ABG pCO2 47.1 (35-45) H 02/16/19 04:47 ABG pCO2 44.1 mm Hg 02/14/19 18:07 POC ABG pO2 125 (80-105) H 02/16/19 04:47 ABG pO2 86.4 mm Hg (80.0-90.0) 02/14/19 18:07 POC ABG HCO3 23.7 (22-26 mml/L) 02/16/19 04:47 ABG HCO3 24.8 mmol/L (20.0-26.0) 02/14/19 18:07 POC ABG Total CO2 25 (23-27mmol/L) 02/16/19 04:47 POC ABG O2 Sat 98 02/16/19 04:47 ABG O2 Saturation 96.7 % (95.0-99.0) 02/14/19 18:07 ABG O2 Content 10.7 (0.0-44) 02/14/19 18:07 POC ABG Base Excess -3 ((-2) - (+3)mmol/L) 02/16/19 04:47 ABG Base Excess -0.5 mmol/L (-2.0-3.0) 02/14/19 18:07 ABG Hemoglobin 8.0 gm/dl (12.0-16.0) L 02/14/19 18:07 ABG Carboxyhemoglobin 2.6 % (0.0-5.0) 02/14/19 18:07 ABG Methemoglobin 0.3 % (0.0-1.5) 02/14/19 18:07 Oxyhemoglobin 93.9 % (95.0-99.0) L 02/14/19 18:07 FiO2 40 % 02/16/19 04:47 Sodium 139 mmol/L (137-145) 02/16/19 05:15 Potassium 3.5 mmol/L (3.6-5.0) L 02/16/19 05:15 Chloride 98.1 mmol/L (98-107) 02/16/19 05:15 Carbon Dioxide 21 mmol/L (22-30) L 02/16/19 05:15 Anion Gap 23 mmol/L 02/16/19 05:15 BUN 65 mg/dL (7-17) H 02/16/19 05:15 Creatinine 3.2 mg/dL (0.7-1.2) H 02/16/19 05:15 Estimated GFR 17 ml/min 02/16/19 05:15 BUN/Creatinine Ratio 20 % 02/16/19 05:15 Glucose 164 mg/dL (65-100) H 02/16/19 05:15 POC Glucose 209 (70-105) H 02/16/19 05:49 Hemoglobin A1c 8.5 % (4-6) H 02/09/19 23:24 Lactic Acid 1.90 mmol/L (0.7-2.0) 02/11/19 16:15 Calcium 8.3 mg/dL (8.4-10.2) L 02/16/19 05:15 Phosphorus 4.10 mg/dL (2.5-4.5) 02/09/19 12:47 Total Bilirubin 3.10 mg/dL (0.1-1.2) H 02/10/19 06:39 AST 39 units/L (5-40) 02/10/19 06:39 ALT 12 units/L (7-56) 02/10/19 06:39 Alkaline Phosphatase 112 units/L (35-129) 02/10/19 06:39 Ammonia 61.0 umol/L (25-60) H 02/09/19 09:16 Total Creatine Kinase 264 units/L (30-135) H 02/09/19 09:16 CK-MB (CK-2) 2.1 ng/mL (0.0-4.0) 02/09/19 09:16 CK-MB (CK-2) Rel Index 0.7 (0-4) 02/09/19 09:16 Troponin T 0.073 ng/mL (0.00-0.029) H 02/09/19 09:16 Serum Total Protein 7.8 g/dL (6.1-8.1) 02/09/19 19:03 Total Protein 8.3 g/dL (6.3-8.2) H 02/10/19 06:39 Albumin 2.4 g/dL (3.9-5) L 02/10/19 06:39 Albumin/Globulin Ratio 0.4 % 02/10/19 06:39 Mfley-7-Urebxsreo 0.5 g/dL (0.2-0.3) H 02/09/19 19:03 Aahbg-1-Nofnygczh 0.7 g/dL (0.5-0.9) 02/09/19 19:03 Beta Globulins 2.8 g/dL (0.2-0.5) H 02/09/19 19:03 Gamma Globulins 0.7 g/dL (0.8-1.7) L 02/09/19 19:03 Abnorm Protein Band 1 2.7 g/dL H 02/09/19 19:03 Abnorm Protein Band 2 0.3 g/dL H 02/09/19 19:03 PEP Interpretation see below H 02/09/19 19:03 Triglycerides 65 mg/dL (2-149) 02/09/19 09:16 Cholesterol 47 mg/dL (50-199) L 02/09/19 09:16 LDL Cholesterol Direct 13 mg/dL (50-130) L 02/09/19 09:16 HDL Cholesterol 27 mg/dL (40-59) L 02/09/19 09:16 Cholesterol/HDL Ratio 1.74 % 02/09/19 09:16 Procalcitonin 11.74 ng/mL (<0.15) 02/11/19 16:15 TSH 5.570 mlU/mL (0.270-4.200) H 02/09/19 09:16 Free T4 0.85 ng/dL (0.76-1.46) 02/09/19 09:16 Urine Color Shamika (Yellow) 02/09/19 14:30 Urine Turbidity Cloudy (Clear) 02/09/19 14:30 Urine pH 5.0 (5.0-7.0) 02/09/19 14:30 Ur Specific [place] 1.015 (1.003-1.030) 02/09/19 14:30 Urine Protein 30 mg/dl mg/dL (Negative) 02/09/19 14:30 Urine Glucose (UA) Neg mg/dL (Negative) 02/09/19 14:30 Urine Ketones Neg mg/dL (Negative) 02/09/19 14:30 Urine Blood Sm (Negative) 02/09/19 14:30 Urine Nitrite Neg (Negative) 02/09/19 14:30 Urine Bilirubin Neg (Negative) 02/09/19 14:30 Urine Urobilinogen < 2.0 mg/dL (<2.0) 02/09/19 14:30 Ur Leukocyte Esterase Mod (Negative) 02/09/19 14:30 Urine WBC (Auto) 32.0 /HPF (0.0-6.0) H 02/09/19 14:30 Urine RBC (Auto) 29.0 /HPF (0.0-6.0) 02/09/19 14:30 U Epithel Cells (Auto) 3.0 /HPF (0-13.0) 02/09/19 14:30 Urine Bacteria (Auto) 3+ /HPF (Negative) 02/09/19 14:30 Urine WBC Clumps 2+ /HPF 02/09/19 14:30 Urine Mucus Few /HPF 02/09/19 14:30 Urine Creatinine 162.4 mg/dL (0.1-20.0) H 02/09/19 14:30 Protein/Creatinin Ratio 0.30 02/09/19 14:30 Urine Sodium 38 mmol/L 02/09/19 14:30 Urine Total Protein 49 mg/dL (5-11.8) H 02/09/19 14:30 Nasal Screen MRSA (PCR) Negative (Negative) 02/12/19 Unknown Random Vancomycin 10.6 ug/mL (0-40.0) 02/15/19 05:23 Urine Opiates Screen Presumptive negative 02/09/19 14:30 Urine Methadone Screen Presumptive negative 02/09/19 14:30 Ur Barbiturates Screen Presumptive negative 02/09/19 14:30 Ur Phencyclidine Scrn Presumptive negative 02/09/19 14:30 Ur Amphetamines Screen Presumptive negative 02/09/19 14:30 U Benzodiazepines Scrn Presumptive negative 02/09/19 14:30 Urine Cocaine Screen Presumptive negative 02/09/19 14:30 U Marijuana (THC) Screen Presumptive negative 02/09/19 14:30 Drugs of Abuse Note Disclamer 02/09/19 14:30 Plasma/Serum Alcohol < 0.01 % (0-0.07) 02/09/19 09:16 Immunofix Electrophor see below H 02/09/19 19:03 Proteinase 3 (PR3) Ab <1.0 AI (<1.0) 02/09/19 12:47 Myeloperoxidase Ab <1.0 AI (<1.0) 02/09/19 12:47 Complement C3 123 mg/dL (83-193) 02/09/19 12:47 Complement C4 37 mg/dL (15-57) 02/09/19 12:47 Hepatitis A IgM Ab Non-reactive (NonReactive) 02/09/19 12:47 Hep Bs Antigen Non-reactive (Negative) 02/09/19 12:47 Hep B Core IgM Ab Non-reactive (NonReactive) 02/09/19 12:47 Hepatitis C Antibody Non-reactive (NonReactive) 02/09/19 12:47 Influenza A (Rapid) Negative (Negative) 02/12/19 Unknown Influenza A (RT-PCR) Negative (Negative) 02/12/19 Unknown Influenza B (Rapid) Negative (Negative) 02/12/19 Unknown Influenza B (RT-PCR) Negative (Negative) 02/12/19 Unknown Active Medications - Current Medications Current Medications: Generic Name Dose Route Start Last Admin Trade Name Freq PRN Reason Stop Dose Admin Acetaminophen 650 mg 02/09/19 22:59 02/16/19 04:20 Tylenol PO 650 mg Q4H PRN Administration Pain MILD(1-3)/Fever >100.5/ARREDONDO Albumin Human 25 gm 02/11/19 12:02 Alburx 25% (Albumin) IV TREVA PRN Hypotension Albuterol 1.25 mg 02/10/19 01:36 Proventil IH TIDRT PRN Shortness Of Breath Albuterol/Ipratropium 1 ampul 02/10/19 14:00 02/16/19 08:15 Duoneb *Not For Prn Use* IH 1 ampul Q6HRT YISEL Administration Dextrose 50 ml 02/13/19 18:56 D50w (25gm) Syringe IV Q30MIN PRN Hypoglycemia Protocol Famotidine 20 mg 02/16/19 10:00 02/16/19 13:07 Pepcid IV 20 mg DAILY YISEL Administration Fentanyl 50 mcg 02/15/19 18:50 Sublimaze IV 02/16/19 18:49 Q10MIN PRN ANALGESIA Gabapentin 800 mg 02/09/19 23:00 02/16/19 13:07 Gabapentin PO 800 mg Q8HR YISEL Administration Heparin Sodium (Porcine) 5,000 unit 02/10/19 22:00 02/15/19 22:30 Heparin SUB-Q Not Given Q12HR YISEL Hydromorphone HCl 0.25 mg 02/09/19 22:59 Dilaudid IV Q3H PRN Pain, Moderate (4-6) Hydrophilic Ointment 1 applic 02/15/19 18:50 Vaseline Lip Therapy TP Q2HR PRN Dry Lips Sodium Chloride 100 mls @ 999 mls/hr 02/11/19 12:02 Nacl 0.9% IV TREVA PRN Hypotension MEROPENEM/NS 1 GRAM/100 ML 1 gram in 100 mls @ 100 mls/hr 02/15/19 16:00 02/16/19 13:12 Merrem/Ns 1 Gram/100 Ml IV 100 mls/hr Q24HR [facility] Administration Protocol Clindamycin HCl 900 mg in 50 mls @ 100 mls/hr 02/15/19 17:00 02/16/19 13:12 Cleocin 900 Mg/50 Ml IV 100 mls/hr Q8HR [facility] Administration Protocol Fentanyl Citrate 2,000 mcg in 100 mls @ 8.4 mls/hr 02/15/19 19:00 02/16/19 07:27 Fentanyl Drip Premix IV 1 mcg/kg/hr TITR YISEL 8.4 mls/hr Administration Protocol 1 MCG/KG/HR Propofol 1,000 mg in 100 mls @ 5.04 mls/hr 02/15/19 19:00 02/16/19 07:29 Diprivan 10 Mg/Ml IV 0 mcg/kg/min TITR YISEL 0 mls/hr Titration Protocol 5 MCG/KG/MIN Norepinephrine 8 mg/ Sodium 250 mls @ 3.75 mls/hr 02/15/19 23:45 02/16/19 08:46 Chloride IV 20 mcg/min TITR YISEL 37.5 mls/hr Titration Protocol 2 MCG/MIN Fluconazole 200 mg in 100 mls @ 100 mls/hr 02/16/19 10:00 02/16/19 13:12 Diflucan IV 100 mls/hr Q24HR [facility] Administration Protocol Insulin Glargine 10 units 02/16/19 11:00 Lantus SUB-Q QAMDIAB [facility] Insulin Human Lispro 0 unit 02/13/19 19:00 02/16/19 12:11 Humalog SUB-Q 3 unit Q6HR [facility] Administration Protocol Multi-Ingred Cream/Lotion/Oil/Oint 1 applic 02/15/19 18:50 02/15/19 22:08 Artificial Tears Ophth Oint OU 1 applic Q4HR PRN Administration Dry Eye(s) Ondansetron HCl 4 mg 02/09/19 22:59 Zofran IV Q8H PRN Nausea And Vomiting Oxycodone/Acetaminophen 1 tab 02/09/19 22:59 Percocet 5/325 PO Q6H PRN Pain, Moderate (4-6) Sodium Chloride 10 ml 02/10/19 10:00 02/15/19 21:17 Sodium Chloride Flush Syringe 10 Ml IV 10 ml BID YISEL Administration Sodium Chloride 10 ml 02/09/19 22:59 02/10/19 06:44 Sodium Chloride Flush Syringe 10 Ml IV 10 ml PRN PRN Administration LINE FLUSH Sodium Hypochlorite 1 applic 02/15/19 16:06 Dakin's Half Strength TP Q12H PRN Wound Care Nutrition/Malnutrition Assess - Dietary Evaluation Nutrition/Malnutrition Findings: Nutrition Notes Start: 02/14/19 11:05 Freq: Status: Active Protocol: Document 02/16/19 11:30 CC (Rec: 02/16/19 11:57 CC [id number]) Co-Sign 02/16/19 11:30 LP Nutrition Notes Initial or Follow up Reassessment Current Diagnosis Acute Kidney Injury,Diabetes, Sepsis,Hypertension,Heart Failure,Respiratory Failure Other Pertinent Diagnosis HD, asthma Current Diet NPO Labs/Tests BUN 65 Creat 3.2 K 3.5 A1c 8.5 Pertinent Medications Norepinephrine, Propofol (133. 1 kcal) Height 5 ft 4 in Weight 168 kg [place] Body Weight (kg) 54.54 BMI 63.6 Weight Status Morbidly Obese Subjective/Other Information Consulted for nutritional intake, pt on vent. Pt had an OGtube placed. TF to start once order is placed. Pt may have CKD per chart Percent of energy/protein needs met: 0%/0% Burn Absent Trauma Absent Current % PO Negligible Minimum of two criteria No physical signs of malnutrition #1 Nutrition Diagnosis Inadequate oral intake Diagnosis Progress(for reassessment Continues documentation) Is patient on ventilator? Yes Is Patient Ambulatory and/or Out of Bed No REE-([facility]-confined to bed) 2638.512 Kcal/Kg value to use for calculation 11 Approximate Energy Requirements Using 1848 kcal/Kg Calculation Used for Recommendations Kcal/kg Additional Notes PRO: 109-125g/day (2.0-2.3g/kg IBW 54.54kg) Fluid: 1ml/kcal Nutrition Intervention Change Diet Order: TF Nutrition Support: Nepro at 45ml/hr Flush 200ml q4hr Kcal 1,944 Protein (gm) 87 Fluid (mL) 785 Goal #1 TF initiation Anticipated Discharge Needs: unknown at this time Follow-Up By: 02/19/19 Additional Comments F/U for TF initiation/rate
--- NOTE | 2019-02-16 15:30 | Progress Note ---
Assessment and Plan Cultures: Blood culture 02/10/2019 no growth so far Urine culture 02/09/2019 negative. Sputum culture 02/15/2019 no growth Assessment: 68 y/o female with history of morbid obesity, asthma/COPD, CHF admitted from home on 02/09/2019 due to one week of altered mental status and weakness, she was treated for a "lung infection" at home started 2 days ago: 1) Severe sepsis with septic shock: back on pressors, worsening leukocytosis now 40K; etiology likely necrotizing fascitis of left thigh +/- JESÚS now on HD. 2) Left thigh necrotizing fascitis: seen on CT s/p OR debridement on 02/15 3) UTI: initial Ua with 32 wbc and moderate LE. Urine cx no growth 4) AMS: likely due to sepsis/hypoglycemia/high ammonia. Improving 5) JESÚS s/p urgent HD - improving Recs: f/u OR cultures continue vancomycin, meropenem and clindamycin renally adjusted D2 continue fluconazole will narrow down abx once clinically better remove femoral TLC I am rounding this weekend Will follow. Becca Jimenez MD Infectious Diseases [employer] Manager [facility] M [phone] O [phone] Subjective Date of service: 02/16/19 Principal diagnosis: Ac. hypercapnic resp. failure; Severe Sepsis with Shock; JESÚS on CKD; AUDI Interval history: Now intubated after OR, tmax 101, on levophed at 20, family at bedside Objective - Exam Narrative Exam: Constitutional: sedated intubated morbidly obese Head, Ears, Nose: Normocephalic, atraumatic. External ears, nose normal Eyes: Conjunctivae/corneas clear. No icterus. No ptosis. Neck: Supple, no meningeal signs Oral: limited Cardiovascular: S1, S2 normal. Respiratory: distant BS GI: Soft, +massive pannus difficult exam Musculoskeletal:+ left inner surgical wound. Skin: No rash or abscess Hem/Lymphatic: No palpable cervical or supraclavicular nodes. No lymphangitis Psych: no agitated Neurological: alert follows commands +right fem cath - Constitutional Vitals: Vital Signs Temp Pulse Resp BP Pulse Ox 99.3 F 94 H 20 115/59 99 02/16/19 14:00 02/16/19 14:45 02/16/19 14:45 02/16/19 14:45 02/16/19 14:45 Temperature -Last 24 Hours Temperature 99.3 F Temperature 97.8 F Temperature 99.9 F Temperature 99.9 F Temperature 101 F Temperature 101 F Temperature 99.8 F Temperature 99.8 F Temperature 102.1 F Temperature 98.1 F Temperature 100.7 F Temperature 100.0 F - Labs CBC & Chem 7: 02/16/19 05:15 02/16/19 05:15 Labs: Abnormal lab results 02/15/19 02/15/19 02/16/19 Range/Units 18:58 23:25 04:47 WBC (4.5-11.0) K/mm3 RBC (3.65-5.03) M/mm3 Hgb (10.1-14.3) gm/dl Hct (30.3-42.9) % MCV (79-97) fl RDW (13.2-15.2) % Seg Neuts % (Manual) (40.0-70.0) % Lymphocytes % (Manual) (13.4-35.0) % Nucleated RBC % (0.0-0.9) % Seg Neutrophils # Man (1.8-7.7) K/mm3 PT (12.2-14.9) Sec. INR (0.87-1.13) POC ABG pH 7.309 L (7.35-7.45) POC ABG pCO2 47.1 H (35-45) POC ABG pO2 125 H (80-105) Potassium (3.6-5.0) mmol/L Carbon Dioxide (22-30) mmol/L BUN (7-17) mg/dL Creatinine (0.7-1.2) mg/dL Glucose (65-100) mg/dL POC Glucose 234 H 203 H (70-105) Calcium (8.4-10.2) mg/dL 02/16/19 02/16/19 02/16/19 Range/Units 05:15 05:15 05:15 WBC 44.0 H* (4.5-11.0) K/mm3 RBC 2.23 L (3.65-5.03) M/mm3 Hgb 7.1 L (10.1-14.3) gm/dl Hct 22.8 L (30.3-42.9) % MCV 102 H (79-97) fl RDW 16.1 H (13.2-15.2) % Seg Neuts % (Manual) 82.0 H (40.0-70.0) % Lymphocytes % (Manual) 7.0 L (13.4-35.0) % Nucleated RBC % 6.0 H (0.0-0.9) % Seg Neutrophils # Man 38.2 H (1.8-7.7) K/mm3 PT 18.3 H (12.2-14.9) Sec. INR 1.54 H (0.87-1.13) POC ABG pH (7.35-7.45) POC ABG pCO2 (35-45) POC ABG pO2 (80-105) Potassium 3.5 L (3.6-5.0) mmol/L Carbon Dioxide 21 L (22-30) mmol/L BUN 65 H (7-17) mg/dL Creatinine 3.2 H (0.7-1.2) mg/dL Glucose 164 H (65-100) mg/dL POC Glucose (70-105) Calcium 8.3 L (8.4-10.2) mg/dL 02/16/19 Range/Units 05:49 WBC (4.5-11.0) K/mm3 RBC (3.65-5.03) M/mm3 Hgb (10.1-14.3) gm/dl Hct (30.3-42.9) % MCV (79-97) fl RDW (13.2-15.2) % Seg Neuts % (Manual) (40.0-70.0) % Lymphocytes % (Manual) (13.4-35.0) % Nucleated RBC % (0.0-0.9) % Seg Neutrophils # Man (1.8-7.7) K/mm3 PT (12.2-14.9) Sec. INR (0.87-1.13) POC ABG pH (7.35-7.45) POC ABG pCO2 (35-45) POC ABG pO2 (80-105) Potassium (3.6-5.0) mmol/L Carbon Dioxide (22-30) mmol/L BUN (7-17) mg/dL Creatinine (0.7-1.2) mg/dL Glucose (65-100) mg/dL POC Glucose 209 H (70-105) Calcium (8.4-10.2) mg/dL
[2019-02-16] MEDS: HEPARIN 5,000 UNIT/1 ML VIAL SUB-Q SCH ×2 (15:38→21:35)
--- NOTE | 2019-02-16 16:00 | Progress Note ---
Assessment and Plan Severe sepsis with septic shock Acute hypoxic respiratory failure / hypercapnic respiratory failure on MVS Acute toxic-metabolic encephalopathy JESÚS on CKD requiring HD Extreme obesity AUDI on PAP at home Necrotizing fascitiis, left thigh on imaging s/p OR- debridement PLAN - Wean vasopressor support for MAP>65, currently on Norepinephrine -Has a right femoral Trialysis , -Volume resuscitation per sepsis protocol -ABG -VAP bundle addressed -Aspiration precautions, HOB>40 degrees - Lung protective strategies -CXR, ABG in am -CBC, BMP and lactic acid -Daily SAT, SBT as tolerated -Tube feedings with aspiration precautions- currently NGT is to LIS- defer General surgery servicce -Agitation and analgesia -Antibiotics per ID. ID following , de-escalate based on cultures and clinical status -VTE prophylaxis -Stress ulcer prophylaxis - Accuchecks with glycemic control for SSI (While critically ill target blood glucose of 140-180 mg/dL; avoid hypoglycemia) - mobility protocol for pressure ulcer prevention -Discontinue Mota catheter -Optimize nutrition to help encourage healing - Monitor hemodynamics closely -Monitor electrolyte profile closely and replete as indicated -Patient is bloodless medicine- limit blood draws, iron replacement therapy, Vit C and folic acid, multivitamins, Epogen Discussed with care team in ICU IDT rounds CONDITION: CRITICAL PROGNOSIS: GUARDED CODE STATUS: FULL CODE The high probability of a clinically significant, sudden or life-threatening deterioration of the [respiratory, cardiovascular, renal] system(s) required my full and direct attention, intervention and personal management. The aggregate critical care time was [35] minutes without overlap. Time includes spent on; [x] Data Review and interpretation [x] Patient assessment and monitoring of vital signs [x] Documentation [x] Medication orders and management Subjective Date of service: 02/16/19 Principal diagnosis: Ac. hypercapnic resp. failure; Severe Sepsis with Shock; JESÚS on CKD; AUDI Interval history: Patient is seen today for: Acute hypercapnic respiratory failure; Acute toxic- metabolic encephalopathy; Severe Sepsis with Shock ; JESÚS on CKD requiring Hemodialysis; Extreme obesity; AUDI/OHS Seen and examined at bedside; 24hour events reviewed; nursing and respiratory care staff consulted; no adverse overnight events reported to me; resting peacefully in bed; s/p OR orally intubated on mechanical ventilatory support, on norepinehrine [id number]; currently getting HD( discussed with HD nurse re the fact patient is volume down); on fentanyl infusion, Fevers Tmax 102 this morning Objective Vital Signs - 12hr 02/16/19 02/16/19 02/16/19 03:59 04:00 04:15 Temperature Pulse Rate 68 67 Pulse Rate [ 74 Anterior Bilateral Throughout] Pulse Rate [ Bilateral Throughout] Pulse Rate [ 68 From Monitor] Respiratory 20 23 Rate Respiratory 16 Rate [Anterior Bilateral Throughout] Respiratory Rate [Bilateral Throughout] Blood Pressure 111/53 110/56 O2 Sat by Pulse 96 98 Oximetry O2 Sat by Pulse Oximetry [ Anterior Bilateral Throughout] O2 Sat by Pulse Oximetry [ Bilateral Throughout] 02/16/19 02/16/19 02/16/19 04:31 04:45 05:00 Temperature Pulse Rate 71 72 74 Pulse Rate [ Anterior Bilateral Throughout] Pulse Rate [ Bilateral Throughout] Pulse Rate [ From Monitor] Respiratory 24 24 22 Rate Respiratory Rate [Anterior Bilateral Throughout] Respiratory Rate [Bilateral Throughout] Blood Pressure 110/56 104/56 112/57 O2 Sat by Pulse 99 96 96 Oximetry O2 Sat by Pulse Oximetry [ Anterior Bilateral Throughout] O2 Sat by Pulse Oximetry [ Bilateral Throughout] 02/16/19 02/16/19 02/16/19 05:15 05:30 05:45 Temperature Pulse Rate 76 75 74 Pulse Rate [ Anterior Bilateral Throughout] Pulse Rate [ Bilateral Throughout] Pulse Rate [ From Monitor] Respiratory 25 H 25 H 25 H Rate Respiratory Rate [Anterior Bilateral Throughout] Respiratory Rate [Bilateral Throughout] Blood Pressure 98/51 93/52 101/55 O2 Sat by Pulse 94 Oximetry O2 Sat by Pulse Oximetry [ Anterior Bilateral Throughout] O2 Sat by Pulse Oximetry [ Bilateral Throughout] 02/16/19 02/16/19 02/16/19 06:00 06:15 06:19 Temperature 99.9 F H Pulse Rate 75 72 Pulse Rate [ Anterior Bilateral Throughout] Pulse Rate [ Bilateral Throughout] Pulse Rate [ From Monitor] Respiratory 24 21 Rate Respiratory Rate [Anterior Bilateral Throughout] Respiratory Rate [Bilateral Throughout] Blood Pressure 101/55 101/55 O2 Sat by Pulse 98 96 Oximetry O2 Sat by Pulse Oximetry [ Anterior Bilateral Throughout] O2 Sat by Pulse Oximetry [ Bilateral Throughout] 02/16/19 02/16/19 02/16/19 06:30 06:45 07:00 Temperature Pulse Rate 72 72 72 Pulse Rate [ Anterior Bilateral Throughout] Pulse Rate [ Bilateral Throughout] Pulse Rate [ From Monitor] Respiratory 24 24 24 Rate Respiratory Rate [Anterior Bilateral Throughout] Respiratory Rate [Bilateral Throughout] Blood Pressure 104/57 110/58 104/56 O2 Sat by Pulse 96 96 Oximetry O2 Sat by Pulse Oximetry [ Anterior Bilateral Throughout] O2 Sat by Pulse Oximetry [ Bilateral Throughout] 02/16/19 02/16/19 02/16/19 07:15 07:30 07:45 Temperature Pulse Rate 73 73 73 Pulse Rate [ Anterior Bilateral Throughout] Pulse Rate [ Bilateral Throughout] Pulse Rate [ From Monitor] Respiratory 24 24 25 H Rate Respiratory Rate [Anterior Bilateral Throughout] Respiratory Rate [Bilateral Throughout] Blood Pressure 105/54 103/58 97/49 O2 Sat by Pulse 96 96 95 Oximetry O2 Sat by Pulse Oximetry [ Anterior Bilateral Throughout] O2 Sat by Pulse Oximetry [ Bilateral Throughout] 02/16/19 02/16/19 02/16/19 08:00 08:15 08:30 Temperature Pulse Rate 73 73 73 Pulse Rate [ 73 Anterior Bilateral Throughout] Pulse Rate [ 73 Bilateral Throughout] Pulse Rate [ 72 From Monitor] Respiratory 4 L 24 20 Rate Respiratory 21 Rate [Anterior Bilateral Throughout] Respiratory 21 Rate [Bilateral Throughout] Blood Pressure 92/47 87/48 96/50 O2 Sat by Pulse 95 Oximetry O2 Sat by Pulse Oximetry [ Anterior Bilateral Throughout] O2 Sat by Pulse Oximetry [ Bilateral Throughout] 02/16/19 02/16/19 02/16/19 08:35 08:45 09:00 Temperature 99.9 F H Pulse Rate 72 71 Pulse Rate [ Anterior Bilateral Throughout] Pulse Rate [ Bilateral Throughout] Pulse Rate [ From Monitor] Respiratory 20 21 Rate Respiratory Rate [Anterior Bilateral Throughout] Respiratory Rate [Bilateral Throughout] Blood Pressure 97/48 118/58 O2 Sat by Pulse 95 99 Oximetry O2 Sat by Pulse 100 Oximetry [ Anterior Bilateral Throughout] O2 Sat by Pulse 100 Oximetry [ Bilateral Throughout] 02/16/19 02/16/19 02/16/19 09:15 09:30 09:45 Temperature Pulse Rate 70 83 93 H Pulse Rate [ Anterior Bilateral Throughout] Pulse Rate [ Bilateral Throughout] Pulse Rate [ From Monitor] Respiratory 21 21 21 Rate Respiratory Rate [Anterior Bilateral Throughout] Respiratory Rate [Bilateral Throughout] Blood Pressure 123/63 134/60 127/70 O2 Sat by Pulse 98 98 98 Oximetry O2 Sat by Pulse Oximetry [ Anterior Bilateral Throughout] O2 Sat by Pulse Oximetry [ Bilateral Throughout] 1102/16/19 02/16/19 10:00 10:15 10:30 Temperature 97.8 F Pulse Rate 70 91 H 69 Pulse Rate [ Anterior Bilateral Throughout] Pulse Rate [ Bilateral Throughout] Pulse Rate [ From Monitor] Respiratory 20 20 21 Rate Respiratory Rate [Anterior Bilateral Throughout] Respiratory Rate [Bilateral Throughout] Blood Pressure 132/55 136/74 127/63 O2 Sat by Pulse 98 98 Oximetry O2 Sat by Pulse Oximetry [ Anterior Bilateral Throughout] O2 Sat by Pulse Oximetry [ Bilateral Throughout] 02/16/19 02/16/19 02/16/19 10:45 11:00 11:15 Temperature Pulse Rate 92 H 73 74 Pulse Rate [ Anterior Bilateral Throughout] Pulse Rate [ Bilateral Throughout] Pulse Rate [ From Monitor] Respiratory 20 20 20 Rate Respiratory Rate [Anterior Bilateral Throughout] Respiratory Rate [Bilateral Throughout] Blood Pressure 136/71 127/59 124/53 O2 Sat by Pulse 98 98 98 Oximetry O2 Sat by Pulse Oximetry [ Anterior Bilateral Throughout] O2 Sat by Pulse Oximetry [ Bilateral Throughout] 02/16/19 02/16/19 02/16/19 11:30 11:45 12:00 Temperature Pulse Rate 73 73 99 H Pulse Rate [ Anterior Bilateral Throughout] Pulse Rate [ Bilateral Throughout] Pulse Rate [ 72 From Monitor] Respiratory 21 20 20 Rate Respiratory Rate [Anterior Bilateral Throughout] Respiratory Rate [Bilateral Throughout] Blood Pressure 122/53 130/50 133/59 O2 Sat by Pulse 99 98 98 Oximetry O2 Sat by Pulse Oximetry [ Anterior Bilateral Throughout] O2 Sat by Pulse Oximetry [ Bilateral Throughout] 02/16/19 02/16/19 02/16/19 12:03 12:15 12:30 Temperature Pulse Rate 62 95 H 70 Pulse Rate [ Anterior Bilateral Throughout] Pulse Rate [ Bilateral Throughout] Pulse Rate [ From Monitor] Respiratory 21 20 Rate Respiratory Rate [Anterior Bilateral Throughout] Respiratory Rate [Bilateral Throughout] Blood Pressure 133/59 134/57 119/58 O2 Sat by Pulse 98 99 Oximetry O2 Sat by Pulse Oximetry [ Anterior Bilateral Throughout] O2 Sat by Pulse Oximetry [ Bilateral Throughout] 02/16/19 02/16/19 02/16/19 12:34 12:39 12:45 Temperature Pulse Rate 72 71 Pulse Rate [ Anterior Bilateral Throughout] Pulse Rate [ Bilateral Throughout] Pulse Rate [ From Monitor] Respiratory 20 Rate Respiratory Rate [Anterior Bilateral Throughout] Respiratory Rate [Bilateral Throughout] Blood Pressure 119/58 116/54 O2 Sat by Pulse 99 96 Oximetry O2 Sat by Pulse 100 Oximetry [ Anterior Bilateral Throughout] O2 Sat by Pulse 100 Oximetry [ Bilateral Throughout] 02/16/19 02/16/19 02/16/19 13:00 13:15 13:30 Temperature Pulse Rate 97 H 74 74 Pulse Rate [ Anterior Bilateral Throughout] Pulse Rate [ Bilateral Throughout] Pulse Rate [ From Monitor] Respiratory 20 20 19 Rate Respiratory Rate [Anterior Bilateral Throughout] Respiratory Rate [Bilateral Throughout] Blood Pressure 116/64 109/58 120/59 O2 Sat by Pulse 95 95 96 Oximetry O2 Sat by Pulse Oximetry [ Anterior Bilateral Throughout] O2 Sat by Pulse Oximetry [ Bilateral Throughout] 02/16/19 02/16/19 02/16/19 13:45 14:00 14:15 Temperature 99.3 F Pulse Rate 73 73 75 Pulse Rate [ Anterior Bilateral Throughout] Pulse Rate [ Bilateral Throughout] Pulse Rate [ From Monitor] Respiratory 20 20 13 Rate Respiratory Rate [Anterior Bilateral Throughout] Respiratory Rate [Bilateral Throughout] Blood Pressure 122/56 107/52 64/31 O2 Sat by Pulse 96 96 Oximetry O2 Sat by Pulse Oximetry [ Anterior Bilateral Throughout] O2 Sat by Pulse Oximetry [ Bilateral Throughout] 02/16/19 02/16/19 02/16/19 14:30 14:33 14:45 Temperature Pulse Rate 80 94 H Pulse Rate [ 94 H Anterior Bilateral Throughout] Pulse Rate [ 94 H Bilateral Throughout] Pulse Rate [ From Monitor] Respiratory 20 20 Rate Respiratory 25 H Rate [Anterior Bilateral Throughout] Respiratory 25 H Rate [Bilateral Throughout] Blood Pressure 85/50 115/59 O2 Sat by Pulse 96 99 Oximetry O2 Sat by Pulse Oximetry [ Anterior Bilateral Throughout] O2 Sat by Pulse Oximetry [ Bilateral Throughout] 02/16/19 02/16/19 15:00 15:15 Temperature Pulse Rate 74 96 H Pulse Rate [ Anterior Bilateral Throughout] Pulse Rate [ Bilateral Throughout] Pulse Rate [ From Monitor] Respiratory 20 17 Rate Respiratory Rate [Anterior Bilateral Throughout] Respiratory Rate [Bilateral Throughout] Blood Pressure 114/59 105/59 O2 Sat by Pulse 98 97 Oximetry O2 Sat by Pulse Oximetry [ Anterior Bilateral Throughout] O2 Sat by Pulse Oximetry [ Bilateral Throughout] Constitutional: alert, appears uncomfortable, other (elderly looking morbidly obese AAF, normocephalic on NC with mildly increased respiratory effort at rest) Eyes: non-icteric ENT: oropharynx moist, other (orally intubated to MVS, ETT at 23 cm at the lip) Neck: supple, no lymphadenopathy, no JVD, other (+ large neck circumference) Effort: mildly labored Ascultation: Bilateral: clear, diminished breath sounds Percussion: Bilateral: not dull Cardiovascular: regular rate and rhythm, other (S1,S2, ) Gastrointestinal: normoactive bowel sounds, soft, non-tender, non-distended, other (Protuberant) Integumentary: rash (stasisi dermatitis) Extremities: no cyanosis, no edema, pulses normal, no ischemia or petechiae, other (right groin trialysis catheter) Neurologic: pupils equal and round, other (Encephalopathic) Psychiatric: other (unable to assess) CBC and BMP: 02/18/19 05:15 02/18/19 15:45 ABG, PT/INR, D-dimer: ABG POC ABG pH 7.309 (7.35-7.45) L 02/16/19 04:47 ABG pH 7.368 pH Units (7.350-7.450) 02/14/19 18:07 POC ABG pCO2 47.1 (35-45) H 02/16/19 04:47 ABG pCO2 44.1 mm Hg 02/14/19 18:07 POC ABG pO2 125 (80-105) H 02/16/19 04:47 ABG pO2 86.4 mm Hg (80.0-90.0) 02/14/19 18:07 POC ABG HCO3 23.7 (22-26 mml/L) 02/16/19 04:47 POC ABG Total CO2 25 (23-27mmol/L) 02/16/19 04:47 POC ABG O2 Sat 98 02/16/19 04:47 ABG O2 Saturation 96.7 % (95.0-99.0) 02/14/19 18:07 PT/INR, D-dimer PT 18.3 Sec. (12.2-14.9) H 02/16/19 05:15 INR 1.54 (0.87-1.13) H 02/16/19 05:15 Abnormal lab findings: Abnormal Labs 02/09/19 02/09/19 02/09/19 08:48 09:16 09:16 WBC 14.6 H RBC 2.48 L Hgb 8.2 L Hct 25.4 L MCV 102 H MCH 33 H RDW 16.1 H Plt Count Seg Neuts % (Manual) 94.0 H Lymphocytes % (Manual) 1.0 L Nucleated RBC % 1.0 H Seg Neutrophils # Man 13.7 H Lymphocytes # (Manual) 0.1 L PT 17.8 H INR 1.49 H POC ABG pH POC ABG pCO2 POC ABG pO2 ABG Hemoglobin Oxyhemoglobin Sodium Potassium Chloride Carbon Dioxide BUN Creatinine Glucose POC Glucose 51 L Hemoglobin A1c Calcium Total Bilirubin Ammonia Total Creatine Kinase Troponin T Total Protein Albumin Plxag-8-Opgphqgcg Beta Globulins Gamma Globulins Abnorm Protein Band 1 Abnorm Protein Band 2 PEP Interpretation Cholesterol LDL Cholesterol Direct HDL Cholesterol TSH Urine WBC (Auto) Urine Creatinine Urine Total Protein Immunofix Electrophor 02/09/19 02/09/19 02/09/19 09:16 09:16 09:16 WBC RBC Hgb Hct MCV MCH RDW Plt Count Seg Neuts % (Manual) Lymphocytes % (Manual) Nucleated RBC % Seg Neutrophils # Man Lymphocytes # (Manual) PT INR POC ABG pH POC ABG pCO2 POC ABG pO2 ABG Hemoglobin Oxyhemoglobin Sodium 131 L Potassium 6.0 H Chloride 91.4 L Carbon Dioxide 18 L BUN 115 H Creatinine 6.8 H Glucose POC Glucose Hemoglobin A1c Calcium Total Bilirubin 2.90 H Ammonia 61.0 H Total Creatine Kinase 264 H Troponin T 0.073 H Total Protein 8.8 H Albumin 2.6 L Pkieb-4-Dcbzzvmbm Beta Globulins Gamma Globulins Abnorm Protein Band 1 Abnorm Protein Band 2 PEP Interpretation Cholesterol 47 L LDL Cholesterol Direct 13 L HDL Cholesterol 27 L TSH 5.570 H Urine WBC (Auto) Urine Creatinine Urine Total Protein Immunofix Electrophor 02/09/19 02/09/19 02/09/19 12:47 14:30 14:30 WBC RBC Hgb Hct MCV MCH RDW Plt Count Seg Neuts % (Manual) Lymphocytes % (Manual) Nucleated RBC % Seg Neutrophils # Man Lymphocytes # (Manual) PT INR POC ABG pH POC ABG pCO2 POC ABG pO2 ABG Hemoglobin Oxyhemoglobin Sodium 131 L Potassium 5.6 H Chloride 91.8 L Carbon Dioxide 17 L BUN 117 H Creatinine 6.5 H Glucose 50 L POC Glucose Hemoglobin A1c Calcium Total Bilirubin Ammonia Total Creatine Kinase Troponin T Total Protein Albumin Liypd-4-Dmtbztyyb Beta Globulins Gamma Globulins Abnorm Protein Band 1 Abnorm Protein Band 2 PEP Interpretation Cholesterol LDL Cholesterol Direct HDL Cholesterol TSH Urine WBC (Auto) 32.0 H Urine Creatinine 162.4 H Urine Total Protein 49 H Immunofix Electrophor 02/09/19 02/09/19 02/09/19 15:05 15:39 19:03 WBC RBC Hgb Hct MCV MCH RDW Plt Count Seg Neuts % (Manual) Lymphocytes % (Manual) Nucleated RBC % Seg Neutrophils # Man Lymphocytes # (Manual) PT INR POC ABG pH POC ABG pCO2 POC ABG pO2 ABG Hemoglobin Oxyhemoglobin Sodium 131 L Potassium 5.7 H Chloride 93.6 L Carbon Dioxide 19 L BUN 111 H Creatinine 7.0 H Glucose 48 L POC Glucose < 40 L 112 H Hemoglobin A1c Calcium Total Bilirubin Ammonia Total Creatine Kinase Troponin T Total Protein Albumin Lnvdb-6-Yhdegkrnb Beta Globulins Gamma Globulins Abnorm Protein Band 1 Abnorm Protein Band 2 PEP Interpretation Cholesterol LDL Cholesterol Direct HDL Cholesterol TSH Urine WBC (Auto) Urine Creatinine Urine Total Protein Immunofix Electrophor 02/09/19 02/09/19 02/09/19 19:03 19:03 21:59 WBC RBC Hgb Hct MCV MCH RDW Plt Count Seg Neuts % (Manual) Lymphocytes % (Manual) Nucleated RBC % Seg Neutrophils # Man Lymphocytes # (Manual) PT INR POC ABG pH POC ABG pCO2 POC ABG pO2 ABG Hemoglobin Oxyhemoglobin Sodium Potassium Chloride Carbon Dioxide BUN Creatinine Glucose POC Glucose 61 L Hemoglobin A1c Calcium Total Bilirubin Ammonia Total Creatine Kinase Troponin T Total Protein Albumin 2.4 L Miagk-9-Curaoxods 0.5 H Beta Globulins 2.8 H Gamma Globulins 0.7 L Abnorm Protein Band 1 2.7 H Abnorm Protein Band 2 0.3 H PEP Interpretation see below H Cholesterol LDL Cholesterol Direct HDL Cholesterol TSH Urine WBC (Auto) Urine Creatinine Urine Total Protein Immunofix Electrophor see below H 02/09/19 02/10/19 02/10/19 23:24 03:06 06:36 WBC RBC Hgb Hct MCV MCH RDW Plt Count Seg Neuts % (Manual) Lymphocytes % (Manual) Nucleated RBC % Seg Neutrophils # Man Lymphocytes # (Manual) PT INR POC ABG pH POC ABG pCO2 POC ABG pO2 ABG Hemoglobin Oxyhemoglobin Sodium Potassium Chloride Carbon Dioxide BUN Creatinine Glucose POC Glucose < 40 L 60 L Hemoglobin A1c 8.5 H Calcium Total Bilirubin Ammonia Total Creatine Kinase Troponin T Total Protein Albumin Xvxvf-4-Xklojjqbj Beta Globulins Gamma Globulins Abnorm Protein Band 1 Abnorm Protein Band 2 PEP Interpretation Cholesterol LDL Cholesterol Direct HDL Cholesterol TSH Urine WBC (Auto) Urine Creatinine Urine Total Protein Immunofix Electrophor 02/10/19 02/10/19 02/10/19 06:39 07:21 09:28 WBC 14.7 H RBC 2.60 L Hgb 8.5 L Hct 26.9 L MCV 104 H MCH 33 H RDW 16.6 H Plt Count Seg Neuts % (Manual) 96.0 H Lymphocytes % (Manual) 1.0 L Nucleated RBC % 3.0 H Seg Neutrophils # Man 14.1 H Lymphocytes # (Manual) 0.1 L PT INR POC ABG pH POC ABG pCO2 POC ABG pO2 ABG Hemoglobin Oxyhemoglobin Sodium 130 L Potassium 6.2 H* Chloride 89.4 L Carbon Dioxide 17 L BUN 124 H Creatinine 6.8 H Glucose 120 H POC Glucose 120 H Hemoglobin A1c Calcium 8.3 L Total Bilirubin 3.10 H Ammonia Total Creatine Kinase Troponin T Total Protein 8.3 H Albumin 2.4 L Bsmbd-8-Hvxoiaxal Beta Globulins Gamma Globulins Abnorm Protein Band 1 Abnorm Protein Band 2 PEP Interpretation Cholesterol LDL Cholesterol Direct HDL Cholesterol TSH Urine WBC (Auto) Urine Creatinine Urine Total Protein Immunofix Electrophor 02/10/19 02/10/19 02/10/19 10:20 10:32 14:15 WBC RBC Hgb Hct MCV MCH RDW Plt Count Seg Neuts % (Manual) Lymphocytes % (Manual) Nucleated RBC % Seg Neutrophils # Man Lymphocytes # (Manual) PT INR POC ABG pH POC ABG pCO2 POC ABG pO2 ABG Hemoglobin Oxyhemoglobin Sodium Potassium 5.9 H Chloride Carbon Dioxide BUN Creatinine Glucose POC Glucose 64 L 67 L Hemoglobin A1c Calcium Total Bilirubin Ammonia Total Creatine Kinase Troponin T Total Protein Albumin Ylpki-6-Vaeiidgec Beta Globulins Gamma Globulins Abnorm Protein Band 1 Abnorm Protein Band 2 PEP Interpretation Cholesterol LDL Cholesterol Direct HDL Cholesterol TSH Urine WBC (Auto) Urine Creatinine Urine Total Protein Immunofix Electrophor 02/10/19 02/11/19 02/11/19 20:06 04:48 07:56 WBC RBC Hgb Hct MCV MCH RDW Plt Count Seg Neuts % (Manual) Lymphocytes % (Manual) Nucleated RBC % Seg Neutrophils # Man Lymphocytes # (Manual) PT INR POC ABG pH POC ABG pCO2 POC ABG pO2 ABG Hemoglobin Oxyhemoglobin Sodium 130 L Potassium Chloride 91.2 L Carbon Dioxide 20 L BUN 81 H Creatinine 5.7 H Glucose POC Glucose 113 H 124 H Hemoglobin A1c Calcium 8.1 L Total Bilirubin Ammonia Total Creatine Kinase Troponin T Total Protein Albumin Texwr-6-Anfykszqt Beta Globulins Gamma Globulins Abnorm Protein Band 1 Abnorm Protein Band 2 PEP Interpretation Cholesterol LDL Cholesterol Direct HDL Cholesterol TSH Urine WBC (Auto) Urine Creatinine Urine Total Protein Immunofix Electrophor 02/11/19 02/11/19 02/11/19 10:35 11:46 14:56 WBC RBC Hgb Hct MCV MCH RDW Plt Count Seg Neuts % (Manual) Lymphocytes % (Manual) Nucleated RBC % Seg Neutrophils # Man Lymphocytes # (Manual) PT INR POC ABG pH 7.304 L POC ABG pCO2 47.7 H POC ABG pO2 142 H ABG Hemoglobin Oxyhemoglobin Sodium Potassium Chloride Carbon Dioxide BUN Creatinine Glucose POC Glucose 128 H 146 H Hemoglobin A1c Calcium Total Bilirubin Ammonia Total Creatine Kinase Troponin T Total Protein Albumin Vwbrh-4-Xivocnjdp Beta Globulins Gamma Globulins Abnorm Protein Band 1 Abnorm Protein Band 2 PEP Interpretation Cholesterol LDL Cholesterol Direct HDL Cholesterol TSH Urine WBC (Auto) Urine Creatinine Urine Total Protein Immunofix Electrophor 02/11/19 02/11/19 02/12/19 18:16 23:48 05:35 WBC RBC Hgb Hct MCV MCH RDW Plt Count Seg Neuts % (Manual) Lymphocytes % (Manual) Nucleated RBC % Seg Neutrophils # Man Lymphocytes # (Manual) PT INR POC ABG pH POC ABG pCO2 POC ABG pO2 ABG Hemoglobin Oxyhemoglobin Sodium 133 L Potassium Chloride 93.8 L Carbon Dioxide 19 L BUN 61 H Creatinine 4.5 H Glucose 165 H POC Glucose 136 H 141 H Hemoglobin A1c Calcium 8.3 L Total Bilirubin Ammonia Total Creatine Kinase Troponin T Total Protein Albumin Bziic-4-Nqdskzjwj Beta Globulins Gamma Globulins Abnorm Protein Band 1 Abnorm Protein Band 2 PEP Interpretation Cholesterol LDL Cholesterol Direct HDL Cholesterol TSH Urine WBC (Auto) Urine Creatinine Urine Total Protein Immunofix Electrophor 02/12/19 02/12/19 02/12/19 05:53 11:09 11:56 WBC RBC Hgb Hct MCV MCH RDW Plt Count Seg Neuts % (Manual) Lymphocytes % (Manual) Nucleated RBC % Seg Neutrophils # Man Lymphocytes # (Manual) PT INR POC ABG pH 7.336 L POC ABG pCO2 POC ABG pO2 ABG Hemoglobin Oxyhemoglobin Sodium Potassium Chloride Carbon Dioxide BUN Creatinine Glucose POC Glucose 170 H 187 H Hemoglobin A1c Calcium Total Bilirubin Ammonia Total Creatine Kinase Troponin T Total Protein Albumin Galcz-3-Okomgthwy Beta Globulins Gamma Globulins Abnorm Protein Band 1 Abnorm Protein Band 2 PEP Interpretation Cholesterol LDL Cholesterol Direct HDL Cholesterol TSH Urine WBC (Auto) Urine Creatinine Urine Total Protein Immunofix Electrophor 02/12/19 02/12/19 02/13/19 18:05 23:43 05:12 WBC RBC Hgb Hct MCV MCH RDW Plt Count Seg Neuts % (Manual) Lymphocytes % (Manual) Nucleated RBC % Seg Neutrophils # Man Lymphocytes # (Manual) PT INR POC ABG pH POC ABG pCO2 POC ABG pO2 ABG Hemoglobin Oxyhemoglobin Sodium Potassium Chloride 97.9 L Carbon Dioxide 19 L BUN 44 H Creatinine 3.1 H Glucose 252 H POC Glucose 207 H 236 H Hemoglobin A1c Calcium Total Bilirubin Ammonia Total Creatine Kinase Troponin T Total Protein Albumin Ktqze-7-Fkpgamjjy Beta Globulins Gamma Globulins Abnorm Protein Band 1 Abnorm Protein Band 2 PEP Interpretation Cholesterol LDL Cholesterol Direct HDL Cholesterol TSH Urine WBC (Auto) Urine Creatinine Urine Total Protein Immunofix Electrophor 02/13/19 02/13/19 02/13/19 05:12 05:31 09:52 WBC 32.4 H RBC 2.54 L Hgb 8.3 L Hct 26.0 L MCV 102 H MCH 33 H RDW 16.5 H Plt Count Seg Neuts % (Manual) 92.0 H Lymphocytes % (Manual) 3.0 L Nucleated RBC % 1.0 H Seg Neutrophils # Man 29.8 H Lymphocytes # (Manual) 1.0 L PT INR POC ABG pH 7.337 L POC ABG pCO2 POC ABG pO2 ABG Hemoglobin Oxyhemoglobin Sodium Potassium Chloride Carbon Dioxide BUN Creatinine Glucose POC Glucose 237 H Hemoglobin A1c Calcium Total Bilirubin Ammonia Total Creatine Kinase Troponin T Total Protein Albumin Dvlkp-6-Wrotujxlo Beta Globulins Gamma Globulins Abnorm Protein Band 1 Abnorm Protein Band 2 PEP Interpretation Cholesterol LDL Cholesterol Direct HDL Cholesterol TSH Urine WBC (Auto) Urine Creatinine Urine Total Protein Immunofix Electrophor 02/13/19 02/13/19 02/13/19 12:02 17:21 23:40 WBC RBC Hgb Hct MCV MCH RDW Plt Count Seg Neuts % (Manual) Lymphocytes % (Manual) Nucleated RBC % Seg Neutrophils # Man Lymphocytes # (Manual) PT INR POC ABG pH POC ABG pCO2 POC ABG pO2 ABG Hemoglobin Oxyhemoglobin Sodium Potassium Chloride Carbon Dioxide BUN Creatinine Glucose POC Glucose 318 H 342 H 338 H Hemoglobin A1c Calcium Total Bilirubin Ammonia Total Creatine Kinase Troponin T Total Protein Albumin Sqwbm-9-Heucgqpoq Beta Globulins Gamma Globulins Abnorm Protein Band 1 Abnorm Protein Band 2 PEP Interpretation Cholesterol LDL Cholesterol Direct HDL Cholesterol TSH Urine WBC (Auto) Urine Creatinine Urine Total Protein Immunofix Electrophor 02/14/19 02/14/19 02/14/19 05:27 05:54 08:36 WBC 40.7 H* RBC 2.28 L Hgb 7.3 L Hct 23.2 L MCV 101 H MCH RDW 16.1 H Plt Count Seg Neuts % (Manual) Lymphocytes % (Manual) Nucleated RBC % Seg Neutrophils # Man Lymphocytes # (Manual) PT INR POC ABG pH POC ABG pCO2 POC ABG pO2 ABG Hemoglobin Oxyhemoglobin Sodium Potassium Chloride Carbon Dioxide 17 L BUN 65 H Creatinine 3.6 H Glucose 286 H POC Glucose 253 H Hemoglobin A1c Calcium Total Bilirubin Ammonia Total Creatine Kinase Troponin T Total Protein Albumin Zrwaz-7-Pqqzrfxos Beta Globulins Gamma Globulins Abnorm Protein Band 1 Abnorm Protein Band 2 PEP Interpretation Cholesterol LDL Cholesterol Direct HDL Cholesterol TSH Urine WBC (Auto) Urine Creatinine Urine Total Protein Immunofix Electrophor 02/14/19 02/14/19 02/14/19 11:59 16:52 18:07 WBC RBC Hgb Hct MCV MCH RDW Plt Count Seg Neuts % (Manual) Lymphocytes % (Manual) Nucleated RBC % Seg Neutrophils # Man Lymphocytes # (Manual) PT INR POC ABG pH POC ABG pCO2 POC ABG pO2 ABG Hemoglobin 8.0 L Oxyhemoglobin 93.9 L Sodium Potassium Chloride Carbon Dioxide BUN Creatinine Glucose POC Glucose 253 H 210 H Hemoglobin A1c Calcium Total Bilirubin Ammonia Total Creatine Kinase Troponin T Total Protein Albumin Xkvfn-4-Uqfotywri Beta Globulins Gamma Globulins Abnorm Protein Band 1 Abnorm Protein Band 2 PEP Interpretation Cholesterol LDL Cholesterol Direct HDL Cholesterol TSH Urine WBC (Auto) Urine Creatinine Urine Total Protein Immunofix Electrophor 02/14/19 02/14/19 02/15/19 18:46 23:44 05:23 WBC RBC Hgb Hct MCV MCH RDW Plt Count Seg Neuts % (Manual) Lymphocytes % (Manual) Nucleated RBC % Seg Neutrophils # Man Lymphocytes # (Manual) PT INR POC ABG pH POC ABG pCO2 POC ABG pO2 ABG Hemoglobin Oxyhemoglobin Sodium Potassium 3.4 L Chloride Carbon Dioxide BUN 49 H Creatinine 2.7 H Glucose 197 H POC Glucose 244 H 184 H Hemoglobin A1c Calcium 8.3 L Total Bilirubin Ammonia Total Creatine Kinase Troponin T Total Protein Albumin Tvgry-8-Lzspeefqx Beta Globulins Gamma Globulins Abnorm Protein Band 1 Abnorm Protein Band 2 PEP Interpretation Cholesterol LDL Cholesterol Direct HDL Cholesterol TSH Urine WBC (Auto) Urine Creatinine Urine Total Protein Immunofix Electrophor 02/15/19 02/15/19 02/15/19 05:43 07:55 11:51 WBC 37.5 H RBC 2.20 L Hgb 7.1 L Hct 22.4 L MCV 102 H MCH RDW 16.0 H Plt Count 138 L Seg Neuts % (Manual) Lymphocytes % (Manual) Nucleated RBC % Seg Neutrophils # Man Lymphocytes # (Manual) PT INR POC ABG pH POC ABG pCO2 POC ABG pO2 ABG Hemoglobin Oxyhemoglobin Sodium Potassium Chloride Carbon Dioxide BUN Creatinine Glucose POC Glucose 202 H 240 H Hemoglobin A1c Calcium Total Bilirubin Ammonia Total Creatine Kinase Troponin T Total Protein Albumin Oqgyi-6-Zpadxrmfo Beta Globulins Gamma Globulins Abnorm Protein Band 1 Abnorm Protein Band 2 PEP Interpretation Cholesterol LDL Cholesterol Direct HDL Cholesterol TSH Urine WBC (Auto) Urine Creatinine Urine Total Protein Immunofix Electrophor 02/15/19 02/15/19 02/16/19 18:58 23:25 04:47 WBC RBC Hgb Hct MCV MCH RDW Plt Count Seg Neuts % (Manual) Lymphocytes % (Manual) Nucleated RBC % Seg Neutrophils # Man Lymphocytes # (Manual) PT INR POC ABG pH 7.309 L POC ABG pCO2 47.1 H POC ABG pO2 125 H ABG Hemoglobin Oxyhemoglobin Sodium Potassium Chloride Carbon Dioxide BUN Creatinine Glucose POC Glucose 234 H 203 H Hemoglobin A1c Calcium Total Bilirubin Ammonia Total Creatine Kinase Troponin T Total Protein Albumin Agcey-1-Fzaxklmef Beta Globulins Gamma Globulins Abnorm Protein Band 1 Abnorm Protein Band 2 PEP Interpretation Cholesterol LDL Cholesterol Direct HDL Cholesterol TSH Urine WBC (Auto) Urine Creatinine Urine Total Protein Immunofix Electrophor 02/16/19 02/16/19 02/16/19 05:15 05:15 05:15 WBC 44.0 H* RBC 2.23 L Hgb 7.1 L Hct 22.8 L MCV 102 H MCH RDW 16.1 H Plt Count Seg Neuts % (Manual) 82.0 H Lymphocytes % (Manual) 7.0 L Nucleated RBC % 6.0 H Seg Neutrophils # Man 38.2 H Lymphocytes # (Manual) PT 18.3 H INR 1.54 H POC ABG pH POC ABG pCO2 POC ABG pO2 ABG Hemoglobin Oxyhemoglobin Sodium Potassium 3.5 L Chloride Carbon Dioxide 21 L BUN 65 H Creatinine 3.2 H Glucose 164 H POC Glucose Hemoglobin A1c Calcium 8.3 L Total Bilirubin Ammonia Total Creatine Kinase Troponin T Total Protein Albumin Wphdp-3-Wfxxvcaur Beta Globulins Gamma Globulins Abnorm Protein Band 1 Abnorm Protein Band 2 PEP Interpretation Cholesterol LDL Cholesterol Direct HDL Cholesterol TSH Urine WBC (Auto) Urine Creatinine Urine Total Protein Immunofix Electrophor 02/16/19 05:49 WBC RBC Hgb Hct MCV MCH RDW Plt Count Seg Neuts % (Manual) Lymphocytes % (Manual) Nucleated RBC % Seg Neutrophils # Man Lymphocytes # (Manual) PT INR POC ABG pH POC ABG pCO2 POC ABG pO2 ABG Hemoglobin Oxyhemoglobin Sodium Potassium Chloride Carbon Dioxide BUN Creatinine Glucose POC Glucose 209 H Hemoglobin A1c Calcium Total Bilirubin Ammonia Total Creatine Kinase Troponin T Total Protein Albumin Cvcqn-5-Vusooknkv Beta Globulins Gamma Globulins Abnorm Protein Band 1 Abnorm Protein Band 2 PEP Interpretation Cholesterol LDL Cholesterol Direct HDL Cholesterol TSH Urine WBC (Auto) Urine Creatinine Urine Total Protein Immunofix Electrophor Chest x-ray: image reviewed Allied health notes reviewed: RT
[2019-02-16 16:35] LABS: Calcium 8.1 mg/dL (8.4-10.2)
--- NOTE | 2019-02-16 17:01 | Progress Note ---
Assessment and Plan - Patient Problems (1) JESÚS (acute kidney injury) Current Visit: Yes Status: Acute Plan to address problem: Acute kidney injury on chronic kidney disease Baseline creatinine 1.6 in 2017 Admission creatinine of 7 with hyperkalemia will continue dialysis Reviewed urinalysis numerous red and white cells creatinine still rising. lynch without output. We'll repeat dialysis tomorrow for volume overload Strict in and output (2) Hyperkalemia Current Visit: Yes Status: Acute Plan to address problem: Hyperkalemia resolved continue dialysis (3) Diabetes Current Visit: No Status: Acute Plan to address problem: Diabetes mellitus type 2 Continue medications (4) Acute encephalopathy Current Visit: Yes Status: Acute Plan to address problem: Encephalopathy: much improved. continue hemodialysis. (5) Acute respiratory failure Current Visit: Yes Status: Acute Plan to address problem: Acute respiratory failure Currently intubated We will continue dialysis with ultrafiltration as tolerated (6) Necrotizing fasciitis Current Visit: Yes Status: Acute Plan to address problem: Necrotizing fasciitis with shock Surgical team following ICU team on board Continue antibiotics Subjective Principal diagnosis: Ac. hypercapnic resp. failure; Severe Sepsis with Shock; JESÚS on CKD; AUDI Interval history: 68 year old female with medical history significant for altered mental status , acute kidney injury ,hypoglycemia , baseline creatinine of 1.6mg/dl in 2017 admitted with hyperkalemia and Acute kidney injury Patient is status post debridement procedure with concern for necrotizing fasciitis had acute respiratory decompensation was intubated She completed her dialysis today limited by hypotension She remains intubated On pressors We'll continue hemodialysis as tolerated sHe is anuric reasonable to DC THE Lynch catheter Objective - Vital Signs Vital signs: Vital Signs - 12hr 02/16/19 02/16/19 02/16/19 05:00 05:15 05:30 Temperature Pulse Rate 74 76 75 Pulse Rate [ Anterior Bilateral Throughout] Pulse Rate [ Bilateral Throughout] Pulse Rate [ From Monitor] Respiratory 22 25 H 25 H Rate Respiratory Rate [Anterior Bilateral Throughout] Respiratory Rate [Bilateral Throughout] Blood Pressure 112/57 98/51 93/52 O2 Sat by Pulse 96 94 Oximetry O2 Sat by Pulse Oximetry [ Anterior Bilateral Throughout] O2 Sat by Pulse Oximetry [ Bilateral Throughout] 02/16/19 02/16/19 02/16/19 05:45 06:00 06:15 Temperature Pulse Rate 74 75 72 Pulse Rate [ Anterior Bilateral Throughout] Pulse Rate [ Bilateral Throughout] Pulse Rate [ From Monitor] Respiratory 25 H 24 21 Rate Respiratory Rate [Anterior Bilateral Throughout] Respiratory Rate [Bilateral Throughout] Blood Pressure 101/55 101/55 101/55 O2 Sat by Pulse 98 96 Oximetry O2 Sat by Pulse Oximetry [ Anterior Bilateral Throughout] O2 Sat by Pulse Oximetry [ Bilateral Throughout] 02/16/19 02/16/19 02/16/19 06:19 06:30 06:45 Temperature 99.9 F H Pulse Rate 72 72 Pulse Rate [ Anterior Bilateral Throughout] Pulse Rate [ Bilateral Throughout] Pulse Rate [ From Monitor] Respiratory 24 24 Rate Respiratory Rate [Anterior Bilateral Throughout] Respiratory Rate [Bilateral Throughout] Blood Pressure 104/57 110/58 O2 Sat by Pulse 96 Oximetry O2 Sat by Pulse Oximetry [ Anterior Bilateral Throughout] O2 Sat by Pulse Oximetry [ Bilateral Throughout] 02/16/19 02/16/19 02/16/19 07:00 07:15 07:30 Temperature Pulse Rate 72 73 73 Pulse Rate [ Anterior Bilateral Throughout] Pulse Rate [ Bilateral Throughout] Pulse Rate [ From Monitor] Respiratory 24 24 24 Rate Respiratory Rate [Anterior Bilateral Throughout] Respiratory Rate [Bilateral Throughout] Blood Pressure 104/56 105/54 103/58 O2 Sat by Pulse 96 96 96 Oximetry O2 Sat by Pulse Oximetry [ Anterior Bilateral Throughout] O2 Sat by Pulse Oximetry [ Bilateral Throughout] 02/16/19 02/16/19 02/16/19 07:45 08:00 08:15 Temperature Pulse Rate 73 73 73 Pulse Rate [ 73 Anterior Bilateral Throughout] Pulse Rate [ 73 Bilateral Throughout] Pulse Rate [ 72 From Monitor] Respiratory 25 H 4 L 24 Rate Respiratory 21 Rate [Anterior Bilateral Throughout] Respiratory 21 Rate [Bilateral Throughout] Blood Pressure 97/49 92/47 87/48 O2 Sat by Pulse 95 95 Oximetry O2 Sat by Pulse Oximetry [ Anterior Bilateral Throughout] O2 Sat by Pulse Oximetry [ Bilateral Throughout] 02/16/19 02/16/19 02/16/19 08:30 08:35 08:45 Temperature Pulse Rate 73 72 Pulse Rate [ Anterior Bilateral Throughout] Pulse Rate [ Bilateral Throughout] Pulse Rate [ From Monitor] Respiratory 20 20 Rate Respiratory Rate [Anterior Bilateral Throughout] Respiratory Rate [Bilateral Throughout] Blood Pressure 96/50 97/48 O2 Sat by Pulse 95 Oximetry O2 Sat by Pulse Oximetry [ Anterior Bilateral Throughout] O2 Sat by Pulse Oximetry [ Bilateral Throughout] 02/16/19 02/16/19 02/16/19 09:00 09:15 09:30 Temperature 99.9 F H Pulse Rate 71 70 83 Pulse Rate [ Anterior Bilateral Throughout] Pulse Rate [ Bilateral Throughout] Pulse Rate [ From Monitor] Respiratory 21 21 21 Rate Respiratory Rate [Anterior Bilateral Throughout] Respiratory Rate [Bilateral Throughout] Blood Pressure 118/58 123/63 134/60 O2 Sat by Pulse 99 98 98 Oximetry O2 Sat by Pulse 100 Oximetry [ Anterior Bilateral Throughout] O2 Sat by Pulse 100 Oximetry [ Bilateral Throughout] 02/16/19 02/16/19 02/16/19 09:45 10:00 10:15 Temperature 97.8 F Pulse Rate 93 H 70 91 H Pulse Rate [ Anterior Bilateral Throughout] Pulse Rate [ Bilateral Throughout] Pulse Rate [ From Monitor] Respiratory 21 20 20 Rate Respiratory Rate [Anterior Bilateral Throughout] Respiratory Rate [Bilateral Throughout] Blood Pressure 127/70 132/55 136/74 O2 Sat by Pulse 98 98 Oximetry O2 Sat by Pulse Oximetry [ Anterior Bilateral Throughout] O2 Sat by Pulse Oximetry [ Bilateral Throughout] 02/16/19 02/16/19 02/16/19 10:30 10:45 11:00 Temperature Pulse Rate 69 92 H 73 Pulse Rate [ Anterior Bilateral Throughout] Pulse Rate [ Bilateral Throughout] Pulse Rate [ From Monitor] Respiratory 21 20 20 Rate Respiratory Rate [Anterior Bilateral Throughout] Respiratory Rate [Bilateral Throughout] Blood Pressure 127/63 136/71 127/59 O2 Sat by Pulse 98 98 98 Oximetry O2 Sat by Pulse Oximetry [ Anterior Bilateral Throughout] O2 Sat by Pulse Oximetry [ Bilateral Throughout] 02/16/19 02/16/19 02/16/19 11:15 11:30 11:45 Temperature Pulse Rate 74 73 73 Pulse Rate [ Anterior Bilateral Throughout] Pulse Rate [ Bilateral Throughout] Pulse Rate [ From Monitor] Respiratory 20 21 20 Rate Respiratory Rate [Anterior Bilateral Throughout] Respiratory Rate [Bilateral Throughout] Blood Pressure 124/53 122/53 130/50 O2 Sat by Pulse 98 99 98 Oximetry O2 Sat by Pulse Oximetry [ Anterior Bilateral Throughout] O2 Sat by Pulse Oximetry [ Bilateral Throughout] 02/16/19 02/16/19 02/16/19 12:00 12:03 12:15 Temperature Pulse Rate 99 H 62 95 H Pulse Rate [ Anterior Bilateral Throughout] Pulse Rate [ Bilateral Throughout] Pulse Rate [ 100 H From Monitor] Respiratory 20 21 Rate Respiratory Rate [Anterior Bilateral Throughout] Respiratory Rate [Bilateral Throughout] Blood Pressure 133/59 133/59 134/57 O2 Sat by Pulse 98 98 Oximetry O2 Sat by Pulse Oximetry [ Anterior Bilateral Throughout] O2 Sat by Pulse Oximetry [ Bilateral Throughout] 02/16/19 02/16/19 02/16/19 12:30 12:34 12:39 Temperature Pulse Rate 70 72 Pulse Rate [ Anterior Bilateral Throughout] Pulse Rate [ Bilateral Throughout] Pulse Rate [ From Monitor] Respiratory 20 Rate Respiratory Rate [Anterior Bilateral Throughout] Respiratory Rate [Bilateral Throughout] Blood Pressure 119/58 119/58 O2 Sat by Pulse 99 99 Oximetry O2 Sat by Pulse 100 Oximetry [ Anterior Bilateral Throughout] O2 Sat by Pulse 100 Oximetry [ Bilateral Throughout] 02/16/19 02/16/19 02/16/19 12:45 13:00 13:15 Temperature Pulse Rate 71 97 H 74 Pulse Rate [ Anterior Bilateral Throughout] Pulse Rate [ Bilateral Throughout] Pulse Rate [ From Monitor] Respiratory 20 20 20 Rate Respiratory Rate [Anterior Bilateral Throughout] Respiratory Rate [Bilateral Throughout] Blood Pressure 116/54 116/64 109/58 O2 Sat by Pulse 96 95 95 Oximetry O2 Sat by Pulse Oximetry [ Anterior Bilateral Throughout] O2 Sat by Pulse Oximetry [ Bilateral Throughout] 02/16/19 02/16/19 02/16/19 13:30 13:45 14:00 Temperature 99.3 F Pulse Rate 74 73 73 Pulse Rate [ Anterior Bilateral Throughout] Pulse Rate [ Bilateral Throughout] Pulse Rate [ From Monitor] Respiratory 19 20 20 Rate Respiratory Rate [Anterior Bilateral Throughout] Respiratory Rate [Bilateral Throughout] Blood Pressure 120/59 122/56 107/52 O2 Sat by Pulse 96 96 96 Oximetry O2 Sat by Pulse Oximetry [ Anterior Bilateral Throughout] O2 Sat by Pulse Oximetry [ Bilateral Throughout] 02/16/19 02/16/19 02/16/19 14:15 14:30 14:33 Temperature Pulse Rate 75 80 Pulse Rate [ 94 H Anterior Bilateral Throughout] Pulse Rate [ 94 H Bilateral Throughout] Pulse Rate [ From Monitor] Respiratory 13 20 Rate Respiratory 25 H Rate [Anterior Bilateral Throughout] Respiratory 25 H Rate [Bilateral Throughout] Blood Pressure 64/31 85/50 O2 Sat by Pulse 96 Oximetry O2 Sat by Pulse Oximetry [ Anterior Bilateral Throughout] O2 Sat by Pulse Oximetry [ Bilateral Throughout] 02/16/19 02/16/19 02/16/19 14:45 15:00 15:15 Temperature Pulse Rate 94 H 74 96 H Pulse Rate [ Anterior Bilateral Throughout] Pulse Rate [ Bilateral Throughout] Pulse Rate [ From Monitor] Respiratory 20 20 17 Rate Respiratory Rate [Anterior Bilateral Throughout] Respiratory Rate [Bilateral Throughout] Blood Pressure 115/59 114/59 105/59 O2 Sat by Pulse 99 98 97 Oximetry O2 Sat by Pulse Oximetry [ Anterior Bilateral Throughout] O2 Sat by Pulse Oximetry [ Bilateral Throughout] 02/16/19 02/16/19 02/16/19 15:30 15:45 16:00 Temperature 100 F H Pulse Rate 98 H 72 99 H Pulse Rate [ Anterior Bilateral Throughout] Pulse Rate [ Bilateral Throughout] Pulse Rate [ 76 From Monitor] Respiratory 17 20 20 Rate Respiratory Rate [Anterior Bilateral Throughout] Respiratory Rate [Bilateral Throughout] Blood Pressure 108/61 97/55 108/59 O2 Sat by Pulse 97 97 Oximetry O2 Sat by Pulse Oximetry [ Anterior Bilateral Throughout] O2 Sat by Pulse Oximetry [ Bilateral Throughout] 02/16/19 16:15 Temperature Pulse Rate 97 H Pulse Rate [ Anterior Bilateral Throughout] Pulse Rate [ Bilateral Throughout] Pulse Rate [ From Monitor] Respiratory 22 Rate Respiratory Rate [Anterior Bilateral Throughout] Respiratory Rate [Bilateral Throughout] Blood Pressure 112/55 O2 Sat by Pulse 96 Oximetry O2 Sat by Pulse Oximetry [ Anterior Bilateral Throughout] O2 Sat by Pulse Oximetry [ Bilateral Throughout] - General Appearance General appearance: well-developed, well-nourished EENT: ATNC, PERRL Neck: no JVD Respiratory: Present: Clear to Ascultation Cardiology: regular, S1S2 Gastrointestinal: normal, normoactive bowel sounds Integumentary: no rash Neurologic: alert and oriented x3, CN 3-12 intact Psychiatric: mood/affect appropriate - Lab 02/16/19 05:15 02/16/19 16:09 Most recent lab results ABG pH 7.368 pH Units (7.350-7.450) 02/14/19 18:07 ABG pCO2 44.1 mm Hg 02/14/19 18:07 ABG pO2 86.4 mm Hg (80.0-90.0) 02/14/19 18:07 ABG HCO3 24.8 mmol/L (20.0-26.0) 02/14/19 18:07 ABG O2 Saturation 96.7 % (95.0-99.0) 02/14/19 18:07 Calcium 8.1 mg/dL (8.4-10.2) L 02/16/19 16:09 Phosphorus 4.10 mg/dL (2.5-4.5) 02/09/19 12:47 Urine Creatinine 162.4 mg/dL (0.1-20.0) H 02/09/19 14:30 Urine Sodium 38 mmol/L 02/09/19 14:30 Urine Total Protein 49 mg/dL (5-11.8) H 02/09/19 14:30 - Imaging Chest x-ray: image reviewed (review chest x-ray with interstitial edema) Medications & Allergies - Medications Allergies/Adverse Reactions: Allergies No Known Allergies Allergy (Verified 06/21/16 01:02) Home Medications: Home Medications Medication Instructions Recorded Confirmed Last Taken Type Fluticasone [Flonase] 50 mcg IH Q4-6H PRN 06/21/16 02/10/19 Unknown History Gabapentin [Neurontin] 800 mg PO Q8H 06/21/16 02/10/19 06/19/16 History Glimepiride [Amaryl] 2 mg PO QAM 06/21/16 02/10/19 06/20/16 History Insulin Glargine,Hum.rec.anlog 100 units SUB-Q QHS 06/21/16 02/10/19 06/19/16 History [Lantus Solostar] Lisinopril [Zestril TAB] 40 mg PO QDAY 06/21/16 02/10/19 06/20/16 History Metformin HCl [Metformin HCl ER] 500 mg PO BID 06/21/16 02/10/19 06/20/16 History amLODIPine [Norvasc] 5 mg PO DAILY 06/21/16 02/10/19 06/20/16 History Albuterol Sulfate [Albuterol 0.63% 0.63 mg IH TID PRN #1 box 06/22/16 02/10/19 Unknown Rx NEBS] Azithromycin [Zithromax TAB] 250 mg PO QDAY #6 tablet 06/22/16 02/10/19 Unknown Rx Benzonatate [Tessalon Perles] 100 mg PO Q8HR #30 capsule 06/22/16 02/10/19 Unknown Rx Ipratropium [Atrovent NEB] 0.5 mg IH Q8HRT #1 box 06/22/16 02/10/19 Unknown Rx Nebulizer and Compressor 1 each MC DAILY PRN #1 each 06/22/16 02/10/19 Unknown Rx [Devilbiss Pulmoneb Lt Comp-Neb] Prednisone [predniSONE 10 mg 10 mg PO .TAPER #1 tab.ds.pk 06/22/16 02/10/19 Unknown Rx (6-Day Pack, 21 Tabs)] Active Medications: Generic Name Dose Route Start Last Admin Trade Name Freq PRN Reason Stop Dose Admin Acetaminophen 650 mg 02/09/19 22:59 02/16/19 15:59 Tylenol PO 650 mg Q4H PRN Administration Pain MILD(1-3)/Fever >100.5/ARREDONDO Albumin Human 25 gm 02/11/19 12:02 Alburx 25% (Albumin) IV TREVA PRN Hypotension Albuterol 1.25 mg 02/10/19 01:36 Proventil IH TIDRT PRN Shortness Of Breath Albuterol/Ipratropium 1 ampul 02/10/19 14:00 02/16/19 14:33 Duoneb *Not For Prn Use* IH 1 ampul Q6HRT YISEL Administration Dextrose 50 ml 02/13/19 18:56 D50w (25gm) Syringe IV Q30MIN PRN Hypoglycemia Protocol Famotidine 20 mg 02/16/19 10:00 02/16/19 13:07 Pepcid IV 20 mg DAILY YISEL Administration Fentanyl 50 mcg 02/15/19 18:50 Sublimaze IV 02/16/19 18:49 Q10MIN PRN ANALGESIA Gabapentin 800 mg 02/09/19 23:00 02/16/19 13:07 Gabapentin PO 800 mg Q8HR YISEL Administration Heparin Sodium (Porcine) 5,000 unit 02/10/19 22:00 02/16/19 15:38 Heparin SUB-Q 5,000 unit Q12HR YISEL Administration Hydromorphone HCl 0.25 mg 02/09/19 22:59 Dilaudid IV Q3H PRN Pain, Moderate (4-6) Hydrophilic Ointment 1 applic 02/15/19 18:50 Vaseline Lip Therapy TP Q2HR PRN Dry Lips Sodium Chloride 100 mls @ 999 mls/hr 02/11/19 12:02 Nacl 0.9% IV TREVA PRN Hypotension MEROPENEM/NS 1 GRAM/100 ML 1 gram in 100 mls @ 100 mls/hr 02/15/19 16:00 02/16/19 13:12 Merrem/Ns 1 Gram/100 Ml IV 100 mls/hr Q24HR [facility] Administration Protocol Clindamycin HCl 900 mg in 50 mls @ 100 mls/hr 02/15/19 17:00 02/16/19 13:12 Cleocin 900 Mg/50 Ml IV 100 mls/hr Q8HR [facility] Administration Protocol Fentanyl Citrate 2,000 mcg in 100 mls @ 8.4 mls/hr 02/15/19 19:00 02/16/19 07:27 Fentanyl Drip Premix IV 1 mcg/kg/hr TITR YISEL 8.4 mls/hr Administration Protocol 1 MCG/KG/HR Propofol 1,000 mg in 100 mls @ 5.04 mls/hr 02/15/19 19:00 02/16/19 07:29 Diprivan 10 Mg/Ml IV 0 mcg/kg/min TITR YISEL 0 mls/hr Titration Protocol 5 MCG/KG/MIN Norepinephrine 8 mg/ Sodium 250 mls @ 3.75 mls/hr 02/15/19 23:45 02/16/19 14:18 Chloride IV 20 mcg/min TITR YISEL 37.5 mls/hr Administration Protocol 2 MCG/MIN Fluconazole 200 mg in 100 mls @ 100 mls/hr 02/16/19 10:00 02/16/19 13:12 Diflucan IV 100 mls/hr Q24HR [facility] Administration Protocol Insulin Glargine 10 units 02/16/19 11:00 02/16/19 15:40 Lantus SUB-Q Not Given QAMDIAB [facility] Insulin Human Lispro 0 unit 02/13/19 19:00 02/16/19 12:11 Humalog SUB-Q 3 unit Q6HR [facility] Administration Protocol Multi-Ingred Cream/Lotion/Oil/Oint 1 applic 02/15/19 18:50 02/15/19 22:08 Artificial Tears Ophth Oint OU 1 applic Q4HR PRN Administration Dry Eye(s) Ondansetron HCl 4 mg 02/09/19 22:59 Zofran IV Q8H PRN Nausea And Vomiting Oxycodone/Acetaminophen 1 tab 02/09/19 22:59 Percocet 5/325 PO Q6H PRN Pain, Moderate (4-6) Sodium Chloride 10 ml 02/10/19 10:00 02/16/19 15:39 Sodium Chloride Flush Syringe 10 Ml IV 10 ml BID YISEL Administration Sodium Chloride 10 ml 02/09/19 22:59 02/10/19 06:44 Sodium Chloride Flush Syringe 10 Ml IV 10 ml PRN PRN Administration LINE FLUSH Sodium Hypochlorite 1 applic 02/15/19 16:06 Dakin's Half Strength TP Q12H PRN Wound Care
--- NOTE | 2019-02-16 17:46 | Progress Note ---
Assessment and Plan 68 yo F s/p incision and drainage with debridement of left thigh necrotizing fasciitis, POD 1 1. septic shock 2. Probable necrotizing fasciitis of left thigh 3. morbid obesity 4. poorly controlled DM 5. protein calorie malnutrition - albumin 2.4 6. anemia 7. JESÚS on HD Plan: 1. Neuro - fent gtt for pain control 2. CV - wean pressors as tolerated. Repeat CBC in am. Monitor WBC and Hb 3. Resp - vent management per ICU. 4. GI - ok to start TF. PPI for GI ppx 5. - lynch. HD per nephro 6. ID - abx per ID. Wound cultures pending. Dressing change in am tomorrow, then BID with daktory per RN. Will likely need to go back to OR for further washout and debridement of L thigh wound when more stable. 7. Endo - strict glucose control 8. FEN - daily electrolytes, gentle IVF. NPO today, may start TF in am. Thank you, please call with questions. Plan discussed with patient's RN Condition: Guarded Subjective Date of service: 02/16/19 Narrative: Pt seen and examined. Remains intubated on fentanyl gtt and pressors. + fevers overnight. Objective Vital Signs - 12hr 02/16/19 02/16/19 02/16/19 05:45 06:00 06:15 Temperature Pulse Rate 74 75 72 Pulse Rate [ Anterior Bilateral Throughout] Pulse Rate [ Bilateral Throughout] Pulse Rate [ From Monitor] Respiratory 25 H 24 21 Rate Respiratory Rate [Anterior Bilateral Throughout] Respiratory Rate [Bilateral Throughout] Blood Pressure 101/55 101/55 101/55 O2 Sat by Pulse 98 96 Oximetry O2 Sat by Pulse Oximetry [ Anterior Bilateral Throughout] O2 Sat by Pulse Oximetry [ Bilateral Throughout] 02/16/19 02/16/19 02/16/19 06:19 06:30 06:45 Temperature 99.9 F H Pulse Rate 72 72 Pulse Rate [ Anterior Bilateral Throughout] Pulse Rate [ Bilateral Throughout] Pulse Rate [ From Monitor] Respiratory 24 24 Rate Respiratory Rate [Anterior Bilateral Throughout] Respiratory Rate [Bilateral Throughout] Blood Pressure 104/57 110/58 O2 Sat by Pulse 96 Oximetry O2 Sat by Pulse Oximetry [ Anterior Bilateral Throughout] O2 Sat by Pulse Oximetry [ Bilateral Throughout] 02/16/19 02/16/19 02/16/19 07:00 07:15 07:30 Temperature Pulse Rate 72 73 73 Pulse Rate [ Anterior Bilateral Throughout] Pulse Rate [ Bilateral Throughout] Pulse Rate [ From Monitor] Respiratory 24 24 24 Rate Respiratory Rate [Anterior Bilateral Throughout] Respiratory Rate [Bilateral Throughout] Blood Pressure 104/56 105/54 103/58 O2 Sat by Pulse 96 96 96 Oximetry O2 Sat by Pulse Oximetry [ Anterior Bilateral Throughout] O2 Sat by Pulse Oximetry [ Bilateral Throughout] 02/16/19 02/16/19 02/16/19 07:45 08:00 08:15 Temperature Pulse Rate 73 73 73 Pulse Rate [ 73 Anterior Bilateral Throughout] Pulse Rate [ 73 Bilateral Throughout] Pulse Rate [ 72 From Monitor] Respiratory 25 H 4 L 24 Rate Respiratory 21 Rate [Anterior Bilateral Throughout] Respiratory 21 Rate [Bilateral Throughout] Blood Pressure 97/49 92/47 87/48 O2 Sat by Pulse 95 95 Oximetry O2 Sat by Pulse Oximetry [ Anterior Bilateral Throughout] O2 Sat by Pulse Oximetry [ Bilateral Throughout] 02/16/19 02/16/19 02/16/19 08:30 08:35 08:45 Temperature Pulse Rate 73 72 Pulse Rate [ Anterior Bilateral Throughout] Pulse Rate [ Bilateral Throughout] Pulse Rate [ From Monitor] Respiratory 20 20 Rate Respiratory Rate [Anterior Bilateral Throughout] Respiratory Rate [Bilateral Throughout] Blood Pressure 96/50 97/48 O2 Sat by Pulse 95 Oximetry O2 Sat by Pulse Oximetry [ Anterior Bilateral Throughout] O2 Sat by Pulse Oximetry [ Bilateral Throughout] 02/16/19 02/16/19 02/16/19 09:00 09:15 09:30 Temperature 99.9 F H Pulse Rate 71 70 83 Pulse Rate [ Anterior Bilateral Throughout] Pulse Rate [ Bilateral Throughout] Pulse Rate [ From Monitor] Respiratory 21 21 21 Rate Respiratory Rate [Anterior Bilateral Throughout] Respiratory Rate [Bilateral Throughout] Blood Pressure 118/58 123/63 134/60 O2 Sat by Pulse 99 98 98 Oximetry O2 Sat by Pulse 100 Oximetry [ Anterior Bilateral Throughout] O2 Sat by Pulse 100 Oximetry [ Bilateral Throughout] 02/16/19 02/16/19 02/16/19 09:45 10:00 10:15 Temperature 97.8 F Pulse Rate 93 H 70 91 H Pulse Rate [ Anterior Bilateral Throughout] Pulse Rate [ Bilateral Throughout] Pulse Rate [ From Monitor] Respiratory 21 20 20 Rate Respiratory Rate [Anterior Bilateral Throughout] Respiratory Rate [Bilateral Throughout] Blood Pressure 127/70 132/55 136/74 O2 Sat by Pulse 98 98 Oximetry O2 Sat by Pulse Oximetry [ Anterior Bilateral Throughout] O2 Sat by Pulse Oximetry [ Bilateral Throughout] 02/16/19 02/16/19 02/16/19 10:30 10:45 11:00 Temperature Pulse Rate 69 92 H 73 Pulse Rate [ Anterior Bilateral Throughout] Pulse Rate [ Bilateral Throughout] Pulse Rate [ From Monitor] Respiratory 21 20 20 Rate Respiratory Rate [Anterior Bilateral Throughout] Respiratory Rate [Bilateral Throughout] Blood Pressure 127/63 136/71 127/59 O2 Sat by Pulse 98 98 98 Oximetry O2 Sat by Pulse Oximetry [ Anterior Bilateral Throughout] O2 Sat by Pulse Oximetry [ Bilateral Throughout] 02/16/19 02/16/19 02/16/19 11:15 11:30 11:45 Temperature Pulse Rate 74 73 73 Pulse Rate [ Anterior Bilateral Throughout] Pulse Rate [ Bilateral Throughout] Pulse Rate [ From Monitor] Respiratory 20 21 20 Rate Respiratory Rate [Anterior Bilateral Throughout] Respiratory Rate [Bilateral Throughout] Blood Pressure 124/53 122/53 130/50 O2 Sat by Pulse 98 99 98 Oximetry O2 Sat by Pulse Oximetry [ Anterior Bilateral Throughout] O2 Sat by Pulse Oximetry [ Bilateral Throughout] 02/16/19 02/16/19 02/16/19 12:00 12:03 12:15 Temperature Pulse Rate 99 H 62 95 H Pulse Rate [ Anterior Bilateral Throughout] Pulse Rate [ Bilateral Throughout] Pulse Rate [ 100 H From Monitor] Respiratory 20 21 Rate Respiratory Rate [Anterior Bilateral Throughout] Respiratory Rate [Bilateral Throughout] Blood Pressure 133/59 133/59 134/57 O2 Sat by Pulse 98 98 Oximetry O2 Sat by Pulse Oximetry [ Anterior Bilateral Throughout] O2 Sat by Pulse Oximetry [ Bilateral Throughout] 02/16/19 02/16/19 02/16/19 12:30 12:34 12:39 Temperature Pulse Rate 70 72 Pulse Rate [ Anterior Bilateral Throughout] Pulse Rate [ Bilateral Throughout] Pulse Rate [ From Monitor] Respiratory 20 Rate Respiratory Rate [Anterior Bilateral Throughout] Respiratory Rate [Bilateral Throughout] Blood Pressure 119/58 119/58 O2 Sat by Pulse 99 99 Oximetry O2 Sat by Pulse 100 Oximetry [ Anterior Bilateral Throughout] O2 Sat by Pulse 100 Oximetry [ Bilateral Throughout] 02/16/19 02/16/19 02/16/19 12:45 13:00 13:15 Temperature Pulse Rate 71 97 H 74 Pulse Rate [ Anterior Bilateral Throughout] Pulse Rate [ Bilateral Throughout] Pulse Rate [ From Monitor] Respiratory 20 20 20 Rate Respiratory Rate [Anterior Bilateral Throughout] Respiratory Rate [Bilateral Throughout] Blood Pressure 116/54 116/64 109/58 O2 Sat by Pulse 96 95 95 Oximetry O2 Sat by Pulse Oximetry [ Anterior Bilateral Throughout] O2 Sat by Pulse Oximetry [ Bilateral Throughout] 02/16/19 02/16/19 02/16/19 13:30 13:45 14:00 Temperature 99.3 F Pulse Rate 74 73 73 Pulse Rate [ Anterior Bilateral Throughout] Pulse Rate [ Bilateral Throughout] Pulse Rate [ From Monitor] Respiratory 19 20 20 Rate Respiratory Rate [Anterior Bilateral Throughout] Respiratory Rate [Bilateral Throughout] Blood Pressure 120/59 122/56 107/52 O2 Sat by Pulse 96 96 96 Oximetry O2 Sat by Pulse Oximetry [ Anterior Bilateral Throughout] O2 Sat by Pulse Oximetry [ Bilateral Throughout] 02/16/19 02/16/19 02/16/19 14:15 14:30 14:33 Temperature Pulse Rate 75 80 Pulse Rate [ 94 H Anterior Bilateral Throughout] Pulse Rate [ 94 H Bilateral Throughout] Pulse Rate [ From Monitor] Respiratory 13 20 Rate Respiratory 25 H Rate [Anterior Bilateral Throughout] Respiratory 25 H Rate [Bilateral Throughout] Blood Pressure 64/31 85/50 O2 Sat by Pulse 96 Oximetry O2 Sat by Pulse Oximetry [ Anterior Bilateral Throughout] O2 Sat by Pulse Oximetry [ Bilateral Throughout] 02/16/19 02/16/19 02/16/19 14:45 15:00 15:15 Temperature Pulse Rate 94 H 74 96 H Pulse Rate [ Anterior Bilateral Throughout] Pulse Rate [ Bilateral Throughout] Pulse Rate [ From Monitor] Respiratory 20 20 17 Rate Respiratory Rate [Anterior Bilateral Throughout] Respiratory Rate [Bilateral Throughout] Blood Pressure 115/59 114/59 105/59 O2 Sat by Pulse 99 98 97 Oximetry O2 Sat by Pulse Oximetry [ Anterior Bilateral Throughout] O2 Sat by Pulse Oximetry [ Bilateral Throughout] 02/16/19 02/16/19 02/16/19 15:30 15:45 16:00 Temperature 100 F H Pulse Rate 98 H 72 99 H Pulse Rate [ Anterior Bilateral Throughout] Pulse Rate [ Bilateral Throughout] Pulse Rate [ 76 From Monitor] Respiratory 17 20 20 Rate Respiratory Rate [Anterior Bilateral Throughout] Respiratory Rate [Bilateral Throughout] Blood Pressure 108/61 97/55 108/59 O2 Sat by Pulse 97 97 Oximetry O2 Sat by Pulse Oximetry [ Anterior Bilateral Throughout] O2 Sat by Pulse Oximetry [ Bilateral Throughout] 02/16/19 02/16/19 02/16/19 16:15 16:30 16:45 Temperature Pulse Rate 97 H 101 H 75 Pulse Rate [ Anterior Bilateral Throughout] Pulse Rate [ Bilateral Throughout] Pulse Rate [ From Monitor] Respiratory 22 20 20 Rate Respiratory Rate [Anterior Bilateral Throughout] Respiratory Rate [Bilateral Throughout] Blood Pressure 112/55 99/57 112/55 O2 Sat by Pulse 96 Oximetry O2 Sat by Pulse Oximetry [ Anterior Bilateral Throughout] O2 Sat by Pulse Oximetry [ Bilateral Throughout] 02/16/19 02/16/19 02/16/19 17:00 17:15 17:30 Temperature Pulse Rate 74 74 75 Pulse Rate [ Anterior Bilateral Throughout] Pulse Rate [ Bilateral Throughout] Pulse Rate [ From Monitor] Respiratory 20 20 20 Rate Respiratory Rate [Anterior Bilateral Throughout] Respiratory Rate [Bilateral Throughout] Blood Pressure 103/58 108/56 103/53 O2 Sat by Pulse 98 96 98 Oximetry O2 Sat by Pulse Oximetry [ Anterior Bilateral Throughout] O2 Sat by Pulse Oximetry [ Bilateral Throughout] - General physical appearance Narrative Exam: Gen: Intubated, opens eyes to verbal stimulus but does not follow commands. ENT: ETT in place. OGT with light green drainage CV: s1, S2+ Resp: on vent Abd: soft, obese, NT Ext: L groin dressing with serous drainage otherwise clean. No crepitus involving surrounding area - Labs 02/16/19 05:15 02/16/19 16:09 Diabetes panel 02/16/19 02/16/19 Range/Units 05:15 16:09 Sodium 139 139 (137-145) mmol/L Potassium 3.5 L 3.1 L (3.6-5.0) mmol/L Chloride 98.1 96.6 L (98-107) mmol/L Carbon Dioxide 21 L 24 (22-30) mmol/L BUN 65 H 40 H (7-17) mg/dL Creatinine 3.2 H 2.1 H (0.7-1.2) mg/dL Glucose 164 H 158 H (65-100) mg/dL Calcium 8.3 L 8.1 L (8.4-10.2) mg/dL Calcium panel 02/16/19 02/16/19 Range/Units 05:15 16:09 Calcium 8.3 L 8.1 L (8.4-10.2) mg/dL Pituitary panel 02/16/19 02/16/19 Range/Units 05:15 16:09 Sodium 139 139 (137-145) mmol/L Potassium 3.5 L 3.1 L (3.6-5.0) mmol/L Chloride 98.1 96.6 L (98-107) mmol/L Carbon Dioxide 21 L 24 (22-30) mmol/L BUN 65 H 40 H (7-17) mg/dL Creatinine 3.2 H 2.1 H (0.7-1.2) mg/dL Glucose 164 H 158 H (65-100) mg/dL Calcium 8.3 L 8.1 L (8.4-10.2) mg/dL Adrenal panel 02/16/19 02/16/19 Range/Units 05:15 16:09 Sodium 139 139 (137-145) mmol/L Potassium 3.5 L 3.1 L (3.6-5.0) mmol/L Chloride 98.1 96.6 L (98-107) mmol/L Carbon Dioxide 21 L 24 (22-30) mmol/L BUN 65 H 40 H (7-17) mg/dL Creatinine 3.2 H 2.1 H (0.7-1.2) mg/dL Glucose 164 H 158 H (65-100) mg/dL Calcium 8.3 L 8.1 L (8.4-10.2) mg/dL
[2019-02-16] MEDS ORDERED: SODIUM CHLORIDE 0.9% 500 ML 500 ML IV ONE (21:55)
[2019-02-17] MEDS: INSULIN LISPRO 100 UNIT/ML SUB-Q SCH ×3 (00:06→16:21)
[2019-02-17] MEDS: VASOPRESSIN 20 UNIT in SODIUM CHLORIDE 0.9% 100 ML IV SCH ×3 (00:45→22:21)
[2019-02-17] MEDS: NORepinephrine 8 MG in SODIUM CHLORIDE 0.9% 250ML 242 ML IV SCH ×6 (01:20→23:27)
[2019-02-17] MEDS: IPRATROPIUM/ALBUTEROL SULFATE 3 ML AMPUL.NEB IH SCH ×4 (02:30→20:40)
--- NOTE | 2019-02-17 02:44 | XRay Report ---
CHEST 1 VIEW, 02/17/2019 1:53 AM CLINICAL INFORMATION/INDICATION: Respiratory failure COMPARISON: Chest radiograph, 02/16/2019 at 1:57 AM FINDINGS: SUPPORT DEVICES: The endotracheal tube and esophagogastric tube remain in stable position. HEART: The cardiac silhouette appears mildly enlarged. LUNGS/PLEURA: Mild bilateral interstitial edema is unchanged. No pneumothorax is visualized. ADDITIONAL FINDINGS: No additional acute findings. IMPRESSION: 1. Stable mild interstitial edema. Signer Name: Lina Barton MD Signed: 02/17/2019 2:39 AM Workstation Name: [id number]
[2019-02-17] MEDS: ACETAMINOPHEN 325 MG TAB PO PRN ×4 (04:32→22:04)
[2019-02-17] MEDS: fentaNYL DRIP Premix 2,000 MCG/100 ML BAG IV SCH (05:07)
[2019-02-17] MEDS: GABAPENTIN 400 MG CAP PO SCH (05:08)
[2019-02-17 05:53] LABS: Hematocrit 23.3 % (30.3-42.9); Hemoglobin 7.3 gm/dl (10.1-14.3); Mean Corpuscular HGB Conc 31 % (30-34); Mean Corpuscular Volume 103 fl (79-97); Platelet Count 157 K/mm3 (140-440); Red Blood Count 2.27 M/mm3 (3.65-5.03); Red Cell Distribution Width 16.5 % (13.2-15.2)
[2019-02-17] MEDS ORDERED: LIPASE 10,500/PROTEASE 25,000/AMYLASE 43,750 (UNITS) DR CAP FEEDTUBE PRN ×2 (07:58→20:20)
[2019-02-17] MEDS ORDERED: SIMPLE SYRUP 15 ML FEEDTUBE PRN ×3 (07:58→20:20)
[2019-02-17] MEDS ORDERED: SODIUM BICARBONATE 325 MG TAB FEEDTUBE PRN ×2 (07:58→20:20)
[2019-02-17] MEDS ORDERED: VANCOMYCIN/NS 1 GM/250 ML 1 GM/250 ML BAG IV ONE (08:00)
[2019-02-17] MEDS ORDERED: ALBUMIN HUMAN 25% (25 GM/100 ML) INJ IV ONE (08:00)
[2019-02-17] MEDS: PHENYLEPHRINE 100 MG in SODIUM CHLORIDE 0.9% 90 ML IV SCH ×2 (08:17→21:16)
[2019-02-17] MEDS: FAMOTIDINE 20 MG/2 ML INJ IV SCH (09:02)
[2019-02-17] MEDS: HEPARIN 5,000 UNIT/1 ML VIAL SUB-Q SCH ×2 (09:02→22:05)
[2019-02-17] MEDS: INSULIN GLARGINE 100 UNITS/ML SUB-Q SCH (09:02)
[2019-02-17] MEDS: FLUCONAZOLE 200 MG 200 MG/100 ML BAG IV SCH (09:03)
[2019-02-17] MEDS: MEROPENEM/NS 1 GRAM/100 ML 1 GRAM/100 ML BAG IV SCH (09:03)
--- NOTE | 2019-02-17 09:57 | Progress Note ---
Assessment and Plan Acute hypercapnic respiratory failure Acute toxic-metabolic encephalopathy Severe Sepsis with Shock JESÚS on CKD requiring Hemodialysis Extreme obesity AUDI/OHS - continue to wean vasopressor support for target MAP > 65 mmHg - reduce set rate on MVS to 12/min - begin daily SAT's and SBT assessment as tolerated in am - VAP bundle addressed (including aspiration precautions, HOB > 40 degrees) - continue Lung protective strategies - continue to wean FIO2 for O2 sats >90% - continue bronchodilators with pulmonary hygiene per RT - continue daily CXR's & ABG's acutely - continue agitation management / Pain management per CPOT (keep on Fentanyl @ 0.5mic's/kg/hr for now) - Continue mobility protocol for pressure ulcer prevention - Continue to monitor hemodynamics closely - Monitor electrolyte profile closely and replete as indicated - continue chronic home medications per attending and as clinically indicated - continue Lantus insulin 10 units sq daily - continue tube feeds at goal rate as tolerated - cotinue HD/UF per nephrology for toxin and volume clearance - nephrology input appreciated - continue empiric antibiotics for Sepsis and adjust per ID rec's (de-escalate based on clinical and microbiologic data) - continue VTE prophylaxis - continue stress ulcer prophylaxis - continue accuchecks with glycemic control per SSI (While critically ill target blood glucose of 140-180 mg/dL; avoid hypoglycemia) - mobility protocol for pressure ulcer prevention - Monitor hemodynamics closely - Monitor electrolyte profile closely and replete as indicated - resume pertinent chronic home medications as clinically indicated - continue lynch catheter in this critically ill patient, with JESÚS requiring accurate intake and output monitoring - continue other care per attending / other economic consultant's ... re-evaluate in am & prn CONDITION: CRITICAL PROGNOSIS: GUARDED-POOR CODE STATUS: FULL CODE The high probability of a clinically significant, sudden or life-threatening deterioration of the [respiratory, cardiovascular, neurology] system(s) required my full and direct attention, intervention and personal management. The aggregate critical care time was [37] minutes without overlap. Time includes spent on; [x] Data Review and interpretation [x] Patient assessment and monitoring of vital signs [x] Documentation [x] Medication orders and management Subjective Date of service: 02/17/19 Principal diagnosis: Ac. hypercapnic resp. failure; Severe Sepsis with Shock; JESÚS on CKD; AUDI Interval history: Patient is seen today for: Acute hypercapnic respiratory failure; Acute toxic- metabolic encephalopathy; Severe Sepsis with Shock ; Necrotizing fasciitis of left thigh/groin; JESÚS on CKD requiring Hemodialysis; Extreme obesity; AUDI/OHS Seen and examined at bedside; 24hour events reviewed; nursing and respiratory care staff consulted; no adverse overnight events reported to me; resting peacefully in bed; remains on MVS; on vasopressin, levophed and neosynephrine; fentanyl drip on hold; AMS is persistent and not responding to commands but with spontaneous movements Objective Vital Signs - 12hr 02/16/19 02/16/19 02/16/19 22:00 22:15 22:30 Temperature Pulse Rate 76 79 79 Pulse Rate [ Anterior Bilateral Throughout] Pulse Rate [ Bilateral Throughout] Pulse Rate [ From Monitor] Respiratory 20 20 20 Rate Respiratory Rate [Anterior Bilateral Throughout] Respiratory Rate [Bilateral Throughout] Blood Pressure 110/51 104/54 110/51 O2 Sat by Pulse 96 96 99 Oximetry 02/16/19 02/16/19 02/16/19 22:33 22:45 23:00 Temperature Pulse Rate 78 77 Pulse Rate [ Anterior Bilateral Throughout] Pulse Rate [ Bilateral Throughout] Pulse Rate [ From Monitor] Respiratory 20 20 20 Rate Respiratory Rate [Anterior Bilateral Throughout] Respiratory Rate [Bilateral Throughout] Blood Pressure 107/51 126/61 O2 Sat by Pulse 97 98 Oximetry 02/16/19 02/16/19 02/16/19 23:15 23:20 23:26 Temperature Pulse Rate 81 79 80 Pulse Rate [ Anterior Bilateral Throughout] Pulse Rate [ Bilateral Throughout] Pulse Rate [ From Monitor] Respiratory 20 20 Rate Respiratory Rate [Anterior Bilateral Throughout] Respiratory Rate [Bilateral Throughout] Blood Pressure 97/50 126/61 97/50 O2 Sat by Pulse 97 98 98 Oximetry 02/16/19 02/16/19 02/16/19 23:30 23:36 23:45 Temperature Pulse Rate 80 80 83 Pulse Rate [ Anterior Bilateral Throughout] Pulse Rate [ Bilateral Throughout] Pulse Rate [ From Monitor] Respiratory 20 20 20 Rate Respiratory Rate [Anterior Bilateral Throughout] Respiratory Rate [Bilateral Throughout] Blood Pressure 94/52 94/52 98/51 O2 Sat by Pulse 97 98 96 Oximetry 02/16/19 02/16/19 02/17/19 23:48 23:57 00:00 Temperature 99.9 F H Pulse Rate 80 104 H Pulse Rate [ Anterior Bilateral Throughout] Pulse Rate [ Bilateral Throughout] Pulse Rate [ 78 From Monitor] Respiratory 20 20 Rate Respiratory Rate [Anterior Bilateral Throughout] Respiratory Rate [Bilateral Throughout] Blood Pressure 94/52 101/59 O2 Sat by Pulse 99 98 Oximetry 02/17/19 02/17/19 02/17/19 00:15 00:30 00:45 Temperature Pulse Rate 81 82 83 Pulse Rate [ Anterior Bilateral Throughout] Pulse Rate [ Bilateral Throughout] Pulse Rate [ From Monitor] Respiratory 20 20 21 Rate Respiratory Rate [Anterior Bilateral Throughout] Respiratory Rate [Bilateral Throughout] Blood Pressure 99/55 101/47 98/52 O2 Sat by Pulse 98 98 Oximetry 02/17/19 02/17/19 02/17/19 01:00 01:15 01:30 Temperature Pulse Rate 82 82 84 Pulse Rate [ Anterior Bilateral Throughout] Pulse Rate [ Bilateral Throughout] Pulse Rate [ From Monitor] Respiratory 20 20 20 Rate Respiratory Rate [Anterior Bilateral Throughout] Respiratory Rate [Bilateral Throughout] Blood Pressure 106/55 108/55 96/54 O2 Sat by Pulse 97 97 Oximetry 02/17/19 02/17/19 02/17/19 01:45 02:00 02:15 Temperature Pulse Rate 83 83 84 Pulse Rate [ Anterior Bilateral Throughout] Pulse Rate [ Bilateral Throughout] Pulse Rate [ From Monitor] Respiratory 20 20 20 Rate Respiratory Rate [Anterior Bilateral Throughout] Respiratory Rate [Bilateral Throughout] Blood Pressure 105/55 103/53 106/56 O2 Sat by Pulse 95 Oximetry 02/17/19 02/17/19 02/17/19 02:30 02:40 02:45 Temperature Pulse Rate 84 84 Pulse Rate [ Anterior Bilateral Throughout] Pulse Rate [ 86 Bilateral Throughout] Pulse Rate [ From Monitor] Respiratory 20 20 Rate Respiratory Rate [Anterior Bilateral Throughout] Respiratory 20 Rate [Bilateral Throughout] Blood Pressure 109/56 106/56 O2 Sat by Pulse 96 Oximetry 02/17/19 02/17/19 02/17/19 03:00 03:15 03:30 Temperature Pulse Rate 86 86 89 Pulse Rate [ Anterior Bilateral Throughout] Pulse Rate [ Bilateral Throughout] Pulse Rate [ From Monitor] Respiratory 20 20 20 Rate Respiratory Rate [Anterior Bilateral Throughout] Respiratory Rate [Bilateral Throughout] Blood Pressure 114/69 120/68 120/68 O2 Sat by Pulse 94 Oximetry 02/17/19 02/17/19 02/17/19 03:35 03:45 04:00 Temperature 102.1 F H Pulse Rate 89 86 86 Pulse Rate [ Anterior Bilateral Throughout] Pulse Rate [ Bilateral Throughout] Pulse Rate [ 83 From Monitor] Respiratory 20 20 20 Rate Respiratory Rate [Anterior Bilateral Throughout] Respiratory Rate [Bilateral Throughout] Blood Pressure 107/61 107/60 O2 Sat by Pulse 98 95 Oximetry 02/17/19 02/17/19 02/17/19 04:15 04:30 04:32 Temperature Pulse Rate 85 85 Pulse Rate [ Anterior Bilateral Throughout] Pulse Rate [ Bilateral Throughout] Pulse Rate [ From Monitor] Respiratory 20 20 20 Rate Respiratory Rate [Anterior Bilateral Throughout] Respiratory Rate [Bilateral Throughout] Blood Pressure 109/62 110/62 O2 Sat by Pulse Oximetry 02/17/19 02/17/19 02/17/19 04:35 04:45 05:00 Temperature 102.1 F H Pulse Rate 85 84 Pulse Rate [ Anterior Bilateral Throughout] Pulse Rate [ Bilateral Throughout] Pulse Rate [ From Monitor] Respiratory 20 20 Rate Respiratory Rate [Anterior Bilateral Throughout] Respiratory Rate [Bilateral Throughout] Blood Pressure 113/63 112/62 O2 Sat by Pulse 93 Oximetry 02/17/19 02/17/19 02/17/19 05:15 05:20 05:30 Temperature Pulse Rate 84 84 84 Pulse Rate [ Anterior Bilateral Throughout] Pulse Rate [ Bilateral Throughout] Pulse Rate [ From Monitor] Respiratory 24 25 H Rate Respiratory Rate [Anterior Bilateral Throughout] Respiratory Rate [Bilateral Throughout] Blood Pressure 110/64 104/59 O2 Sat by Pulse 94 Oximetry 02/17/19 02/17/19 02/17/19 05:32 05:45 06:00 Temperature Pulse Rate 84 85 Pulse Rate [ Anterior Bilateral Throughout] Pulse Rate [ Bilateral Throughout] Pulse Rate [ From Monitor] Respiratory 20 25 H 24 Rate Respiratory Rate [Anterior Bilateral Throughout] Respiratory Rate [Bilateral Throughout] Blood Pressure 108/61 99/56 O2 Sat by Pulse 95 Oximetry 02/17/19 02/17/19 02/17/19 06:15 06:30 06:45 Temperature Pulse Rate 86 87 88 Pulse Rate [ Anterior Bilateral Throughout] Pulse Rate [ Bilateral Throughout] Pulse Rate [ From Monitor] Respiratory 24 25 H 25 H Rate Respiratory Rate [Anterior Bilateral Throughout] Respiratory Rate [Bilateral Throughout] Blood Pressure 89/53 89/54 76/50 O2 Sat by Pulse Oximetry 02/17/19 02/17/19 02/17/19 07:00 07:15 07:30 Temperature Pulse Rate 92 H 95 H 97 H Pulse Rate [ Anterior Bilateral Throughout] Pulse Rate [ Bilateral Throughout] Pulse Rate [ From Monitor] Respiratory 23 18 19 Rate Respiratory Rate [Anterior Bilateral Throughout] Respiratory Rate [Bilateral Throughout] Blood Pressure 75/45 74/47 84/45 O2 Sat by Pulse 98 97 Oximetry 02/17/19 02/17/19 02/17/19 07:32 07:45 08:00 Temperature 103.8 F H Pulse Rate 97 H 98 H Pulse Rate [ 94 H Anterior Bilateral Throughout] Pulse Rate [ 86 Bilateral Throughout] Pulse Rate [ 98 H From Monitor] Respiratory 22 20 Rate Respiratory 25 H Rate [Anterior Bilateral Throughout] Respiratory 20 Rate [Bilateral Throughout] Blood Pressure 79/47 79/46 O2 Sat by Pulse 99 Oximetry 02/17/19 02/17/19 02/17/19 08:15 08:30 08:45 Temperature Pulse Rate 99 H 101 H 98 H Pulse Rate [ Anterior Bilateral Throughout] Pulse Rate [ Bilateral Throughout] Pulse Rate [ From Monitor] Respiratory 26 H 26 H 10 L Rate Respiratory Rate [Anterior Bilateral Throughout] Respiratory Rate [Bilateral Throughout] Blood Pressure 73/40 73/41 96/57 O2 Sat by Pulse 98 95 95 Oximetry 02/17/19 02/17/19 02/17/19 09:00 09:15 09:30 Temperature Pulse Rate 95 H 94 H 93 H Pulse Rate [ Anterior Bilateral Throughout] Pulse Rate [ Bilateral Throughout] Pulse Rate [ From Monitor] Respiratory 16 16 18 Rate Respiratory Rate [Anterior Bilateral Throughout] Respiratory Rate [Bilateral Throughout] Blood Pressure 98/59 94/59 90/59 O2 Sat by Pulse 93 95 Oximetry Constitutional: alert, appears uncomfortable, other (elderly looking morbidly ob azeb AAF, normocephalic on NC with mildly increased respiratory effort at rest) Eyes: non-icteric ENT: oropharynx moist, other (ETT 23-24 cm GENE) Neck: supple, no lymphadenopathy, no JVD, other (+ large neck circumference) Effort: mildly labored Ascultation: Bilateral: clear, diminished breath sounds Percussion: Bilateral: not dull Cardiovascular: regular rate and rhythm, other (S1,S2, ) Gastrointestinal: normoactive bowel sounds, soft, non-tender, non-distended, other (Protuberant) Integumentary: rash (stasisi dermatitis) Extremities: no cyanosis, no edema, pulses normal, no ischemia or petechiae, other (right groin trialysis catheter; Left groin / thigh in clean surgical dressing) Neurologic: non-focal exam (grossly), pupils equal and round, other (Encephalopathic) Psychiatric: mood appropriate, affect normal CBC and BMP: 02/17/19 05:31 02/17/19 05:31 ABG, PT/INR, D-dimer: ABG POC ABG pH 7.309 (7.35-7.45) L 02/16/19 04:47 ABG pH 7.368 pH Units (7.350-7.450) 02/14/19 18:07 POC ABG pCO2 47.1 (35-45) H 02/16/19 04:47 ABG pCO2 44.1 mm Hg 02/14/19 18:07 POC ABG pO2 125 (80-105) H 02/16/19 04:47 ABG pO2 86.4 mm Hg (80.0-90.0) 02/14/19 18:07 POC ABG HCO3 23.7 (22-26 mml/L) 02/16/19 04:47 POC ABG Total CO2 25 (23-27mmol/L) 02/16/19 04:47 POC ABG O2 Sat 98 02/16/19 04:47 ABG O2 Saturation 96.7 % (95.0-99.0) 02/14/19 18:07 PT/INR, D-dimer PT 18.3 Sec. (12.2-14.9) H 02/16/19 05:15 INR 1.54 (0.87-1.13) H 02/16/19 05:15 Abnormal lab findings: Abnormal Labs 02/09/19 02/09/19 02/09/19 08:48 09:16 09:16 WBC 14.6 H RBC 2.48 L Hgb 8.2 L Hct 25.4 L MCV 102 H MCH 33 H RDW 16.1 H Plt Count Seg Neuts % (Manual) 94.0 H Lymphocytes % (Manual) 1.0 L Nucleated RBC % 1.0 H Seg Neutrophils # Man 13.7 H Lymphocytes # (Manual) 0.1 L PT 17.8 H INR 1.49 H POC ABG pH POC ABG pCO2 POC ABG pO2 ABG Hemoglobin Oxyhemoglobin Sodium Potassium Chloride Carbon Dioxide BUN Creatinine Glucose POC Glucose 51 L Hemoglobin A1c Calcium Total Bilirubin Ammonia Total Creatine Kinase Troponin T Total Protein Albumin Srwtu-1-Xudksmgnl Beta Globulins Gamma Globulins Abnorm Protein Band 1 Abnorm Protein Band 2 PEP Interpretation Cholesterol LDL Cholesterol Direct HDL Cholesterol TSH Urine WBC (Auto) Urine Creatinine Urine Total Protein Immunofix Electrophor 02/09/19 02/09/19 02/09/19 09:16 09:16 09:16 WBC RBC Hgb Hct MCV MCH RDW Plt Count Seg Neuts % (Manual) Lymphocytes % (Manual) Nucleated RBC % Seg Neutrophils # Man Lymphocytes # (Manual) PT INR POC ABG pH POC ABG pCO2 POC ABG pO2 ABG Hemoglobin Oxyhemoglobin Sodium 131 L Potassium 6.0 H Chloride 91.4 L Carbon Dioxide 18 L BUN 115 H Creatinine 6.8 H Glucose POC Glucose Hemoglobin A1c Calcium Total Bilirubin 2.90 H Ammonia 61.0 H Total Creatine Kinase 264 H Troponin T 0.073 H Total Protein 8.8 H Albumin 2.6 L Jjrne-5-Hjfxqpkbv Beta Globulins Gamma Globulins Abnorm Protein Band 1 Abnorm Protein Band 2 PEP Interpretation Cholesterol 47 L LDL Cholesterol Direct 13 L HDL Cholesterol 27 L TSH 5.570 H Urine WBC (Auto) Urine Creatinine Urine Total Protein Immunofix Electrophor 02/09/19 02/09/19 02/09/19 12:47 14:30 14:30 WBC RBC Hgb Hct MCV MCH RDW Plt Count Seg Neuts % (Manual) Lymphocytes % (Manual) Nucleated RBC % Seg Neutrophils # Man Lymphocytes # (Manual) PT INR POC ABG pH POC ABG pCO2 POC ABG pO2 ABG Hemoglobin Oxyhemoglobin Sodium 131 L Potassium 5.6 H Chloride 91.8 L Carbon Dioxide 17 L BUN 117 H Creatinine 6.5 H Glucose 50 L POC Glucose Hemoglobin A1c Calcium Total Bilirubin Ammonia Total Creatine Kinase Troponin T Total Protein Albumin Wuecq-1-Lwlcgzowz Beta Globulins Gamma Globulins Abnorm Protein Band 1 Abnorm Protein Band 2 PEP Interpretation Cholesterol LDL Cholesterol Direct HDL Cholesterol TSH Urine WBC (Auto) 32.0 H Urine Creatinine 162.4 H Urine Total Protein 49 H Immunofix Electrophor 02/09/19 02/09/19 02/09/19 15:05 15:39 19:03 WBC RBC Hgb Hct MCV MCH RDW Plt Count Seg Neuts % (Manual) Lymphocytes % (Manual) Nucleated RBC % Seg Neutrophils # Man Lymphocytes # (Manual) PT INR POC ABG pH POC ABG pCO2 POC ABG pO2 ABG Hemoglobin Oxyhemoglobin Sodium 131 L Potassium 5.7 H Chloride 93.6 L Carbon Dioxide 19 L BUN 111 H Creatinine 7.0 H Glucose 48 L POC Glucose < 40 L 112 H Hemoglobin A1c Calcium Total Bilirubin Ammonia Total Creatine Kinase Troponin T Total Protein Albumin Zokyr-7-Qxcvckwmb Beta Globulins Gamma Globulins Abnorm Protein Band 1 Abnorm Protein Band 2 PEP Interpretation Cholesterol LDL Cholesterol Direct HDL Cholesterol TSH Urine WBC (Auto) Urine Creatinine Urine Total Protein Immunofix Electrophor 02/09/19 02/09/19 02/09/19 19:03 19:03 21:59 WBC RBC Hgb Hct MCV MCH RDW Plt Count Seg Neuts % (Manual) Lymphocytes % (Manual) Nucleated RBC % Seg Neutrophils # Man Lymphocytes # (Manual) PT INR POC ABG pH POC ABG pCO2 POC ABG pO2 ABG Hemoglobin Oxyhemoglobin Sodium Potassium Chloride Carbon Dioxide BUN Creatinine Glucose POC Glucose 61 L Hemoglobin A1c Calcium Total Bilirubin Ammonia Total Creatine Kinase Troponin T Total Protein Albumin 2.4 L Moubx-8-Zjiggmmwr 0.5 H Beta Globulins 2.8 H Gamma Globulins 0.7 L Abnorm Protein Band 1 2.7 H Abnorm Protein Band 2 0.3 H PEP Interpretation see below H Cholesterol LDL Cholesterol Direct HDL Cholesterol TSH Urine WBC (Auto) Urine Creatinine Urine Total Protein Immunofix Electrophor see below H 02/09/19 02/10/19 02/10/19 23:24 03:06 06:36 WBC RBC Hgb Hct MCV MCH RDW Plt Count Seg Neuts % (Manual) Lymphocytes % (Manual) Nucleated RBC % Seg Neutrophils # Man Lymphocytes # (Manual) PT INR POC ABG pH POC ABG pCO2 POC ABG pO2 ABG Hemoglobin Oxyhemoglobin Sodium Potassium Chloride Carbon Dioxide BUN Creatinine Glucose POC Glucose < 40 L 60 L Hemoglobin A1c 8.5 H Calcium Total Bilirubin Ammonia Total Creatine Kinase Troponin T Total Protein Albumin Xxoul-7-Qcoxkhpvb Beta Globulins Gamma Globulins Abnorm Protein Band 1 Abnorm Protein Band 2 PEP Interpretation Cholesterol LDL Cholesterol Direct HDL Cholesterol TSH Urine WBC (Auto) Urine Creatinine Urine Total Protein Immunofix Electrophor 02/10/19 02/10/19 02/10/19 06:39 07:21 09:28 WBC 14.7 H RBC 2.60 L Hgb 8.5 L Hct 26.9 L MCV 104 H MCH 33 H RDW 16.6 H Plt Count Seg Neuts % (Manual) 96.0 H Lymphocytes % (Manual) 1.0 L Nucleated RBC % 3.0 H Seg Neutrophils # Man 14.1 H Lymphocytes # (Manual) 0.1 L PT INR POC ABG pH POC ABG pCO2 POC ABG pO2 ABG Hemoglobin Oxyhemoglobin Sodium 130 L Potassium 6.2 H* Chloride 89.4 L Carbon Dioxide 17 L BUN 124 H Creatinine 6.8 H Glucose 120 H POC Glucose 120 H Hemoglobin A1c Calcium 8.3 L Total Bilirubin 3.10 H Ammonia Total Creatine Kinase Troponin T Total Protein 8.3 H Albumin 2.4 L Bxjhx-6-Hasvxesnc Beta Globulins Gamma Globulins Abnorm Protein Band 1 Abnorm Protein Band 2 PEP Interpretation Cholesterol LDL Cholesterol Direct HDL Cholesterol TSH Urine WBC (Auto) Urine Creatinine Urine Total Protein Immunofix Electrophor 02/10/19 02/10/19 02/10/19 10:20 10:32 14:15 WBC RBC Hgb Hct MCV MCH RDW Plt Count Seg Neuts % (Manual) Lymphocytes % (Manual) Nucleated RBC % Seg Neutrophils # Man Lymphocytes # (Manual) PT INR POC ABG pH POC ABG pCO2 POC ABG pO2 ABG Hemoglobin Oxyhemoglobin Sodium Potassium 5.9 H Chloride Carbon Dioxide BUN Creatinine Glucose POC Glucose 64 L 67 L Hemoglobin A1c Calcium Total Bilirubin Ammonia Total Creatine Kinase Troponin T Total Protein Albumin Kdhpg-7-Qiirsevuf Beta Globulins Gamma Globulins Abnorm Protein Band 1 Abnorm Protein Band 2 PEP Interpretation Cholesterol LDL Cholesterol Direct HDL Cholesterol TSH Urine WBC (Auto) Urine Creatinine Urine Total Protein Immunofix Electrophor 02/10/19 02/11/19 02/11/19 20:06 04:48 07:56 WBC RBC Hgb Hct MCV MCH RDW Plt Count Seg Neuts % (Manual) Lymphocytes % (Manual) Nucleated RBC % Seg Neutrophils # Man Lymphocytes # (Manual) PT INR POC ABG pH POC ABG pCO2 POC ABG pO2 ABG Hemoglobin Oxyhemoglobin Sodium 130 L Potassium Chloride 91.2 L Carbon Dioxide 20 L BUN 81 H Creatinine 5.7 H Glucose POC Glucose 113 H 124 H Hemoglobin A1c Calcium 8.1 L Total Bilirubin Ammonia Total Creatine Kinase Troponin T Total Protein Albumin Ictfu-5-Ckwuwkkcb Beta Globulins Gamma Globulins Abnorm Protein Band 1 Abnorm Protein Band 2 PEP Interpretation Cholesterol LDL Cholesterol Direct HDL Cholesterol TSH Urine WBC (Auto) Urine Creatinine Urine Total Protein Immunofix Electrophor 11/02/11/19 02/11/19 10:35 11:46 14:56 WBC RBC Hgb Hct MCV MCH RDW Plt Count Seg Neuts % (Manual) Lymphocytes % (Manual) Nucleated RBC % Seg Neutrophils # Man Lymphocytes # (Manual) PT INR POC ABG pH 7.304 L POC ABG pCO2 47.7 H POC ABG pO2 142 H ABG Hemoglobin Oxyhemoglobin Sodium Potassium Chloride Carbon Dioxide BUN Creatinine Glucose POC Glucose 128 H 146 H Hemoglobin A1c Calcium Total Bilirubin Ammonia Total Creatine Kinase Troponin T Total Protein Albumin Ukygj-1-Klbcegvie Beta Globulins Gamma Globulins Abnorm Protein Band 1 Abnorm Protein Band 2 PEP Interpretation Cholesterol LDL Cholesterol Direct HDL Cholesterol TSH Urine WBC (Auto) Urine Creatinine Urine Total Protein Immunofix Electrophor 02/11/19 02/11/19 02/12/19 18:16 23:48 05:35 WBC RBC Hgb Hct MCV MCH RDW Plt Count Seg Neuts % (Manual) Lymphocytes % (Manual) Nucleated RBC % Seg Neutrophils # Man Lymphocytes # (Manual) PT INR POC ABG pH POC ABG pCO2 POC ABG pO2 ABG Hemoglobin Oxyhemoglobin Sodium 133 L Potassium Chloride 93.8 L Carbon Dioxide 19 L BUN 61 H Creatinine 4.5 H Glucose 165 H POC Glucose 136 H 141 H Hemoglobin A1c Calcium 8.3 L Total Bilirubin Ammonia Total Creatine Kinase Troponin T Total Protein Albumin Wofuc-0-Gsbkzqzkq Beta Globulins Gamma Globulins Abnorm Protein Band 1 Abnorm Protein Band 2 PEP Interpretation Cholesterol LDL Cholesterol Direct HDL Cholesterol TSH Urine WBC (Auto) Urine Creatinine Urine Total Protein Immunofix Electrophor 02/12/19 02/12/19 02/12/19 05:53 11:09 11:56 WBC RBC Hgb Hct MCV MCH RDW Plt Count Seg Neuts % (Manual) Lymphocytes % (Manual) Nucleated RBC % Seg Neutrophils # Man Lymphocytes # (Manual) PT INR POC ABG pH 7.336 L POC ABG pCO2 POC ABG pO2 ABG Hemoglobin Oxyhemoglobin Sodium Potassium Chloride Carbon Dioxide BUN Creatinine Glucose POC Glucose 170 H 187 H Hemoglobin A1c Calcium Total Bilirubin Ammonia Total Creatine Kinase Troponin T Total Protein Albumin Nlisk-9-Yivhvdsdv Beta Globulins Gamma Globulins Abnorm Protein Band 1 Abnorm Protein Band 2 PEP Interpretation Cholesterol LDL Cholesterol Direct HDL Cholesterol TSH Urine WBC (Auto) Urine Creatinine Urine Total Protein Immunofix Electrophor 02/12/19 02/12/19 02/13/19 18:05 23:43 05:12 WBC RBC Hgb Hct MCV MCH RDW Plt Count Seg Neuts % (Manual) Lymphocytes % (Manual) Nucleated RBC % Seg Neutrophils # Man Lymphocytes # (Manual) PT INR POC ABG pH POC ABG pCO2 POC ABG pO2 ABG Hemoglobin Oxyhemoglobin Sodium Potassium Chloride 97.9 L Carbon Dioxide 19 L BUN 44 H Creatinine 3.1 H Glucose 252 H POC Glucose 207 H 236 H Hemoglobin A1c Calcium Total Bilirubin Ammonia Total Creatine Kinase Troponin T Total Protein Albumin Dzydf-1-Qpxcswoma Beta Globulins Gamma Globulins Abnorm Protein Band 1 Abnorm Protein Band 2 PEP Interpretation Cholesterol LDL Cholesterol Direct HDL Cholesterol TSH Urine WBC (Auto) Urine Creatinine Urine Total Protein Immunofix Electrophor 02/13/19 02/13/19 02/13/19 05:12 05:31 09:52 WBC 32.4 H RBC 2.54 L Hgb 8.3 L Hct 26.0 L MCV 102 H MCH 33 H RDW 16.5 H Plt Count Seg Neuts % (Manual) 92.0 H Lymphocytes % (Manual) 3.0 L Nucleated RBC % 1.0 H Seg Neutrophils # Man 29.8 H Lymphocytes # (Manual) 1.0 L PT INR POC ABG pH 7.337 L POC ABG pCO2 POC ABG pO2 ABG Hemoglobin Oxyhemoglobin Sodium Potassium Chloride Carbon Dioxide BUN Creatinine Glucose POC Glucose 237 H Hemoglobin A1c Calcium Total Bilirubin Ammonia Total Creatine Kinase Troponin T Total Protein Albumin Geidk-9-Wdpkybegd Beta Globulins Gamma Globulins Abnorm Protein Band 1 Abnorm Protein Band 2 PEP Interpretation Cholesterol LDL Cholesterol Direct HDL Cholesterol TSH Urine WBC (Auto) Urine Creatinine Urine Total Protein Immunofix Electrophor 02/13/19 02/13/19 02/13/19 12:02 17:21 23:40 WBC RBC Hgb Hct MCV MCH RDW Plt Count Seg Neuts % (Manual) Lymphocytes % (Manual) Nucleated RBC % Seg Neutrophils # Man Lymphocytes # (Manual) PT INR POC ABG pH POC ABG pCO2 POC ABG pO2 ABG Hemoglobin Oxyhemoglobin Sodium Potassium Chloride Carbon Dioxide BUN Creatinine Glucose POC Glucose 318 H 342 H 338 H Hemoglobin A1c Calcium Total Bilirubin Ammonia Total Creatine Kinase Troponin T Total Protein Albumin Slofs-2-Klvxderbr Beta Globulins Gamma Globulins Abnorm Protein Band 1 Abnorm Protein Band 2 PEP Interpretation Cholesterol LDL Cholesterol Direct HDL Cholesterol TSH Urine WBC (Auto) Urine Creatinine Urine Total Protein Immunofix Electrophor 02/14/19 02/14/19 02/14/19 05:27 05:54 08:36 WBC 40.7 H* RBC 2.28 L Hgb 7.3 L Hct 23.2 L MCV 101 H MCH RDW 16.1 H Plt Count Seg Neuts % (Manual) Lymphocytes % (Manual) Nucleated RBC % Seg Neutrophils # Man Lymphocytes # (Manual) PT INR POC ABG pH POC ABG pCO2 POC ABG pO2 ABG Hemoglobin Oxyhemoglobin Sodium Potassium Chloride Carbon Dioxide 17 L BUN 65 H Creatinine 3.6 H Glucose 286 H POC Glucose 253 H Hemoglobin A1c Calcium Total Bilirubin Ammonia Total Creatine Kinase Troponin T Total Protein Albumin Nmgkg-8-Clkbbyxzp Beta Globulins Gamma Globulins Abnorm Protein Band 1 Abnorm Protein Band 2 PEP Interpretation Cholesterol LDL Cholesterol Direct HDL Cholesterol TSH Urine WBC (Auto) Urine Creatinine Urine Total Protein Immunofix Electrophor 02/14/19 02/14/19 02/14/19 11:59 16:52 18:07 WBC RBC Hgb Hct MCV MCH RDW Plt Count Seg Neuts % (Manual) Lymphocytes % (Manual) Nucleated RBC % Seg Neutrophils # Man Lymphocytes # (Manual) PT INR POC ABG pH POC ABG pCO2 POC ABG pO2 ABG Hemoglobin 8.0 L Oxyhemoglobin 93.9 L Sodium Potassium Chloride Carbon Dioxide BUN Creatinine Glucose POC Glucose 253 H 210 H Hemoglobin A1c Calcium Total Bilirubin Ammonia Total Creatine Kinase Troponin T Total Protein Albumin Pzyvr-5-Uvsdfukie Beta Globulins Gamma Globulins Abnorm Protein Band 1 Abnorm Protein Band 2 PEP Interpretation Cholesterol LDL Cholesterol Direct HDL Cholesterol TSH Urine WBC (Auto) Urine Creatinine Urine Total Protein Immunofix Electrophor 02/14/19 02/14/19 02/15/19 18:46 23:44 05:23 WBC RBC Hgb Hct MCV MCH RDW Plt Count Seg Neuts % (Manual) Lymphocytes % (Manual) Nucleated RBC % Seg Neutrophils # Man Lymphocytes # (Manual) PT INR POC ABG pH POC ABG pCO2 POC ABG pO2 ABG Hemoglobin Oxyhemoglobin Sodium Potassium 3.4 L Chloride Carbon Dioxide BUN 49 H Creatinine 2.7 H Glucose 197 H POC Glucose 244 H 184 H Hemoglobin A1c Calcium 8.3 L Total Bilirubin Ammonia Total Creatine Kinase Troponin T Total Protein Albumin Otxwr-2-Djtadnbdt Beta Globulins Gamma Globulins Abnorm Protein Band 1 Abnorm Protein Band 2 PEP Interpretation Cholesterol LDL Cholesterol Direct HDL Cholesterol TSH Urine WBC (Auto) Urine Creatinine Urine Total Protein Immunofix Electrophor 02/15/19 02/15/19 02/15/19 05:43 07:55 11:51 WBC 37.5 H RBC 2.20 L Hgb 7.1 L Hct 22.4 L MCV 102 H MCH RDW 16.0 H Plt Count 138 L Seg Neuts % (Manual) Lymphocytes % (Manual) Nucleated RBC % Seg Neutrophils # Man Lymphocytes # (Manual) PT INR POC ABG pH POC ABG pCO2 POC ABG pO2 ABG Hemoglobin Oxyhemoglobin Sodium Potassium Chloride Carbon Dioxide BUN Creatinine Glucose POC Glucose 202 H 240 H Hemoglobin A1c Calcium Total Bilirubin Ammonia Total Creatine Kinase Troponin T Total Protein Albumin Ifhzs-3-Doijtobrf Beta Globulins Gamma Globulins Abnorm Protein Band 1 Abnorm Protein Band 2 PEP Interpretation Cholesterol LDL Cholesterol Direct HDL Cholesterol TSH Urine WBC (Auto) Urine Creatinine Urine Total Protein Immunofix Electrophor 02/15/19 02/15/19 02/16/19 18:58 23:25 04:47 WBC RBC Hgb Hct MCV MCH RDW Plt Count Seg Neuts % (Manual) Lymphocytes % (Manual) Nucleated RBC % Seg Neutrophils # Man Lymphocytes # (Manual) PT INR POC ABG pH 7.309 L POC ABG pCO2 47.1 H POC ABG pO2 125 H ABG Hemoglobin Oxyhemoglobin Sodium Potassium Chloride Carbon Dioxide BUN Creatinine Glucose POC Glucose 234 H 203 H Hemoglobin A1c Calcium Total Bilirubin Ammonia Total Creatine Kinase Troponin T Total Protein Albumin Ffoxf-3-Lqzlrbrkw Beta Globulins Gamma Globulins Abnorm Protein Band 1 Abnorm Protein Band 2 PEP Interpretation Cholesterol LDL Cholesterol Direct HDL Cholesterol TSH Urine WBC (Auto) Urine Creatinine Urine Total Protein Immunofix Electrophor 02/16/19 02/16/19 02/16/19 05:15 05:15 05:15 WBC 44.0 H* RBC 2.23 L Hgb 7.1 L Hct 22.8 L MCV 102 H MCH RDW 16.1 H Plt Count Seg Neuts % (Manual) 82.0 H Lymphocytes % (Manual) 7.0 L Nucleated RBC % 6.0 H Seg Neutrophils # Man 38.2 H Lymphocytes # (Manual) PT 18.3 H INR 1.54 H POC ABG pH POC ABG pCO2 POC ABG pO2 ABG Hemoglobin Oxyhemoglobin Sodium Potassium 3.5 L Chloride Carbon Dioxide 21 L BUN 65 H Creatinine 3.2 H Glucose 164 H POC Glucose Hemoglobin A1c Calcium 8.3 L Total Bilirubin Ammonia Total Creatine Kinase Troponin T Total Protein Albumin Bbetw-9-Vssgnxcrg Beta Globulins Gamma Globulins Abnorm Protein Band 1 Abnorm Protein Band 2 PEP Interpretation Cholesterol LDL Cholesterol Direct HDL Cholesterol TSH Urine WBC (Auto) Urine Creatinine Urine Total Protein Immunofix Electrophor 02/16/19 02/16/19 02/16/19 05:49 12:02 16:09 WBC RBC Hgb Hct MCV MCH RDW Plt Count Seg Neuts % (Manual) Lymphocytes % (Manual) Nucleated RBC % Seg Neutrophils # Man Lymphocytes # (Manual) PT INR POC ABG pH POC ABG pCO2 POC ABG pO2 ABG Hemoglobin Oxyhemoglobin Sodium Potassium 3.1 L Chloride 96.6 L Carbon Dioxide BUN 40 H Creatinine 2.1 H Glucose 158 H POC Glucose 209 H 170 H Hemoglobin A1c Calcium 8.1 L Total Bilirubin Ammonia Total Creatine Kinase Troponin T Total Protein Albumin Wawrn-8-Gdfhuqtbu Beta Globulins Gamma Globulins Abnorm Protein Band 1 Abnorm Protein Band 2 PEP Interpretation Cholesterol LDL Cholesterol Direct HDL Cholesterol TSH Urine WBC (Auto) Urine Creatinine Urine Total Protein Immunofix Electrophor 02/16/19 02/16/19 02/17/19 17:42 23:23 05:31 WBC RBC Hgb Hct MCV MCH RDW Plt Count Seg Neuts % (Manual) Lymphocytes % (Manual) Nucleated RBC % Seg Neutrophils # Man Lymphocytes # (Manual) PT INR POC ABG pH POC ABG pCO2 POC ABG pO2 ABG Hemoglobin Oxyhemoglobin Sodium 135 L Potassium Chloride 96.3 L Carbon Dioxide 17 L D BUN 50 H Creatinine 2.4 H Glucose 125 H POC Glucose 157 H 155 H Hemoglobin A1c Calcium 8.0 L Total Bilirubin Ammonia Total Creatine Kinase Troponin T Total Protein Albumin Jvypl-3-Pbjvsnicq Beta Globulins Gamma Globulins Abnorm Protein Band 1 Abnorm Protein Band 2 PEP Interpretation Cholesterol LDL Cholesterol Direct HDL Cholesterol TSH Urine WBC (Auto) Urine Creatinine Urine Total Protein Immunofix Electrophor 02/17/19 02/17/19 05:31 05:43 WBC 44.5 H* RBC 2.27 L Hgb 7.3 L Hct 23.3 L MCV 103 H MCH RDW 16.5 H Plt Count Seg Neuts % (Manual) Lymphocytes % (Manual) Nucleated RBC % Seg Neutrophils # Man Lymphocytes # (Manual) PT INR POC ABG pH POC ABG pCO2 POC ABG pO2 ABG Hemoglobin Oxyhemoglobin Sodium Potassium Chloride Carbon Dioxide BUN Creatinine Glucose POC Glucose 158 H Hemoglobin A1c Calcium Total Bilirubin Ammonia Total Creatine Kinase Troponin T Total Protein Albumin Bnsfk-5-Bpxxqoetb Beta Globulins Gamma Globulins Abnorm Protein Band 1 Abnorm Protein Band 2 PEP Interpretation Cholesterol LDL Cholesterol Direct HDL Cholesterol TSH Urine WBC (Auto) Urine Creatinine Urine Total Protein Immunofix Electrophor Chest x-ray: image reviewed (rotated to right; ETT in good position; low lung volumes) Allied health notes reviewed: nursing
[2019-02-17] MEDS: SODIUM HYPOCHLORITE, DAKIN'S 1/2 STRENGTH (0.25%) 473 ML TOPICAL SOLN TP PRN (13:05)
--- NOTE | 2019-02-17 13:30 | Progress Note ---
Assessment and Plan 68 yo F s/p incision and drainage with debridement of left thigh necrotizing fasciitis, POD 2 1. septic shock 2. Mecrotizing fasciitis of left thigh/groin 3. morbid obesity 4. poorly controlled DM 5. protein calorie malnutrition - albumin 2.4 6. anemia 7. JESÚS on HD Plan: 1. Neuro - fent gtt for pain control. Currently patient not responsive off sedation. 2. CV - wean pressors as tolerated - currently maxed out on 3 pressors. Repeat CBC in am. Monitor WBC and Hb 3. Resp - vent management per ICU. 4. GI - PPI for GI ppx. NGT to LIWS. Do not start TF as patient is on 3 pressors. 5. - lynch. HD per nephro 6. ID - abx per ID. Wound cultures pending. Blood cultures pending Dressing changes BID with dakins per nursing. 7. Endo - strict glucose control 8. FEN - daily electrolytes, gentle IVF. NPO Patient on 3 pressors. Wound is mostly clean without any evidence of further pr ogression of necrotizing fasciitis. At this point there is minimal added benefit to further debridement and patient is too unstable for the operating room. Recommend continuing management as above and supportive care. I discussed the patient's condition with her daughters over the telephone. I exp lained that the patient is requiring more pressors at higher doses, minimally responsive off sedation and will not benefit greatly from returning to OR. I explained that at this point we will continue aggressive supportive care but there is a chance she may not improve. They understand and all questions answered. Phone number to surgery answering service given to them if they have any other questions. Thank you, please call with questions. Plan discussed with patient's RN Condition: Guarded Subjective Date of service: 02/17/19 Narrative: Pt seen and examined. Off sedation and minimally responsive on vent. On 3 pressors for hypotension. + Fevers with Tm 103.8. Objective Vital Signs - 12hr 02/17/19 02/17/19 02/17/19 01:15 01:30 01:45 Temperature Pulse Rate 82 84 83 Pulse Rate [ Anterior Bilateral Throughout] Pulse Rate [ Bilateral Throughout] Pulse Rate [ From Monitor] Respiratory 20 20 20 Rate Respiratory Rate [Anterior Bilateral Throughout] Respiratory Rate [Bilateral Throughout] Blood Pressure 108/55 96/54 105/55 O2 Sat by Pulse 97 Oximetry 02/17/19 02/17/19 02/17/19 02:00 02:15 02:30 Temperature Pulse Rate 83 84 84 Pulse Rate [ Anterior Bilateral Throughout] Pulse Rate [ Bilateral Throughout] Pulse Rate [ From Monitor] Respiratory 20 20 20 Rate Respiratory Rate [Anterior Bilateral Throughout] Respiratory Rate [Bilateral Throughout] Blood Pressure 103/53 106/56 109/56 O2 Sat by Pulse 95 96 Oximetry 02/17/19 02/17/19 02/17/19 02:40 02:45 03:00 Temperature Pulse Rate 84 86 Pulse Rate [ Anterior Bilateral Throughout] Pulse Rate [ 86 Bilateral Throughout] Pulse Rate [ From Monitor] Respiratory 20 20 Rate Respiratory Rate [Anterior Bilateral Throughout] Respiratory 20 Rate [Bilateral Throughout] Blood Pressure 106/56 114/69 O2 Sat by Pulse Oximetry 02/17/19 02/17/19 02/17/19 03:15 03:30 03:35 Temperature Pulse Rate 86 89 89 Pulse Rate [ Anterior Bilateral Throughout] Pulse Rate [ Bilateral Throughout] Pulse Rate [ 83 From Monitor] Respiratory 20 20 20 Rate Respiratory Rate [Anterior Bilateral Throughout] Respiratory Rate [Bilateral Throughout] Blood Pressure 120/68 120/68 O2 Sat by Pulse 94 98 Oximetry 02/17/19 02/17/19 02/17/19 03:45 04:00 04:15 Temperature 102.1 F H Pulse Rate 86 86 85 Pulse Rate [ Anterior Bilateral Throughout] Pulse Rate [ Bilateral Throughout] Pulse Rate [ From Monitor] Respiratory 20 20 20 Rate Respiratory Rate [Anterior Bilateral Throughout] Respiratory Rate [Bilateral Throughout] Blood Pressure 107/61 107/60 109/62 O2 Sat by Pulse 95 Oximetry 02/17/19 02/17/19 02/17/19 04:30 04:32 04:35 Temperature 102.1 F H Pulse Rate 85 Pulse Rate [ Anterior Bilateral Throughout] Pulse Rate [ Bilateral Throughout] Pulse Rate [ From Monitor] Respiratory 20 20 Rate Respiratory Rate [Anterior Bilateral Throughout] Respiratory Rate [Bilateral Throughout] Blood Pressure 110/62 O2 Sat by Pulse Oximetry 02/17/19 02/17/19 02/17/19 04:45 05:00 05:15 Temperature Pulse Rate 85 84 84 Pulse Rate [ Anterior Bilateral Throughout] Pulse Rate [ Bilateral Throughout] Pulse Rate [ From Monitor] Respiratory 20 20 24 Rate Respiratory Rate [Anterior Bilateral Throughout] Respiratory Rate [Bilateral Throughout] Blood Pressure 113/63 112/62 110/64 O2 Sat by Pulse 93 Oximetry 02/17/19 02/17/19 02/17/19 05:20 05:30 05:32 Temperature Pulse Rate 84 84 Pulse Rate [ Anterior Bilateral Throughout] Pulse Rate [ Bilateral Throughout] Pulse Rate [ From Monitor] Respiratory 25 H 20 Rate Respiratory Rate [Anterior Bilateral Throughout] Respiratory Rate [Bilateral Throughout] Blood Pressure 104/59 O2 Sat by Pulse 94 Oximetry 02/17/19 02/17/19 02/17/19 05:45 06:00 06:15 Temperature Pulse Rate 84 85 86 Pulse Rate [ Anterior Bilateral Throughout] Pulse Rate [ Bilateral Throughout] Pulse Rate [ From Monitor] Respiratory 25 H 24 24 Rate Respiratory Rate [Anterior Bilateral Throughout] Respiratory Rate [Bilateral Throughout] Blood Pressure 108/61 99/56 89/53 O2 Sat by Pulse 95 Oximetry 02/17/19 02/17/19 02/17/19 06:30 06:45 07:00 Temperature Pulse Rate 87 88 92 H Pulse Rate [ Anterior Bilateral Throughout] Pulse Rate [ Bilateral Throughout] Pulse Rate [ From Monitor] Respiratory 25 H 25 H 23 Rate Respiratory Rate [Anterior Bilateral Throughout] Respiratory Rate [Bilateral Throughout] Blood Pressure 89/54 76/50 75/45 O2 Sat by Pulse 98 Oximetry 02/17/19 02/17/19 02/17/19 07:15 07:30 07:32 Temperature Pulse Rate 95 H 97 H Pulse Rate [ 94 H Anterior Bilateral Throughout] Pulse Rate [ 86 Bilateral Throughout] Pulse Rate [ From Monitor] Respiratory 18 19 Rate Respiratory 25 H Rate [Anterior Bilateral Throughout] Respiratory 20 Rate [Bilateral Throughout] Blood Pressure 74/47 84/45 O2 Sat by Pulse 97 Oximetry 02/17/19 02/17/19 02/17/19 07:45 08:00 08:15 Temperature 103.8 F H Pulse Rate 97 H 90 99 H Pulse Rate [ Anterior Bilateral Throughout] Pulse Rate [ Bilateral Throughout] Pulse Rate [ 98 H From Monitor] Respiratory 22 20 26 H Rate Respiratory Rate [Anterior Bilateral Throughout] Respiratory Rate [Bilateral Throughout] Blood Pressure 79/47 79/46 73/40 O2 Sat by Pulse 99 98 Oximetry 02/17/19 02/17/19 02/17/19 08:30 08:45 09:00 Temperature Pulse Rate 101 H 98 H 95 H Pulse Rate [ Anterior Bilateral Throughout] Pulse Rate [ Bilateral Throughout] Pulse Rate [ From Monitor] Respiratory 26 H 10 L 16 Rate Respiratory Rate [Anterior Bilateral Throughout] Respiratory Rate [Bilateral Throughout] Blood Pressure 73/41 96/57 98/59 O2 Sat by Pulse 95 95 Oximetry 02/17/19 02/17/19 02/17/19 09:15 09:30 09:45 Temperature Pulse Rate 94 H 93 H 93 H Pulse Rate [ Anterior Bilateral Throughout] Pulse Rate [ Bilateral Throughout] Pulse Rate [ From Monitor] Respiratory 16 18 17 Rate Respiratory Rate [Anterior Bilateral Throughout] Respiratory Rate [Bilateral Throughout] Blood Pressure 94/59 90/59 92/54 O2 Sat by Pulse 93 95 92 Oximetry 02/17/19 02/17/19 02/17/19 10:00 10:15 10:30 Temperature Pulse Rate 93 H 94 H 95 H Pulse Rate [ Anterior Bilateral Throughout] Pulse Rate [ Bilateral Throughout] Pulse Rate [ From Monitor] Respiratory 18 18 17 Rate Respiratory Rate [Anterior Bilateral Throughout] Respiratory Rate [Bilateral Throughout] Blood Pressure 94/57 88/56 96/56 O2 Sat by Pulse 91 96 Oximetry 02/17/19 02/17/19 02/17/19 10:45 11:00 11:15 Temperature Pulse Rate 95 H 96 H 96 H Pulse Rate [ Anterior Bilateral Throughout] Pulse Rate [ Bilateral Throughout] Pulse Rate [ From Monitor] Respiratory 18 18 18 Rate Respiratory Rate [Anterior Bilateral Throughout] Respiratory Rate [Bilateral Throughout] Blood Pressure 95/54 97/55 88/47 O2 Sat by Pulse 100 100 100 Oximetry 02/17/19 02/17/19 02/17/19 11:30 11:45 12:00 Temperature 100.4 F H Pulse Rate 97 H 97 H 97 H Pulse Rate [ Anterior Bilateral Throughout] Pulse Rate [ Bilateral Throughout] Pulse Rate [ 97 H From Monitor] Respiratory 18 19 18 Rate Respiratory Rate [Anterior Bilateral Throughout] Respiratory Rate [Bilateral Throughout] Blood Pressure 98/57 89/54 93/50 O2 Sat by Pulse 99 99 100 Oximetry - General physical appearance Narrative Exam: Gen: Intubated. Not responsive to painful stimulus ENT: ETT and OGT in place. Light bilious drainage from OGT CV: S1, S2+ resp; on vent Abd: soft, NT, ND Ext: L groin dressing removed. All packing (2 pieces of kerlix and 2 pieces of quick clot) removed from wound. Wound bed without odor. 90% of tissue is clean and hemostatic. Minimal purulent fluid at the upper medial aspect of the wound. No additional tracts. Periwound skin is indurated but no additional fluctuance, creptius or obvious signs indicating progression of necrotizing infection. Wound cleansed and packed with 1 piece of kerlix moistened with dakins solution. Covered with dry 4x4 gauze, ABD pads, and coversite dressing. - Labs 02/17/19 05:31 02/17/19 05:31 Diabetes panel 02/16/19 02/17/19 Range/Units 16:09 05:31 Sodium 139 135 L (137-145) mmol/L Potassium 3.1 L 3.7 (3.6-5.0) mmol/L Chloride 96.6 L 96.3 L (98-107) mmol/L Carbon Dioxide 24 17 L D (22-30) mmol/L BUN 40 H 50 H (7-17) mg/dL Creatinine 2.1 H 2.4 H (0.7-1.2) mg/dL Glucose 158 H 125 H (65-100) mg/dL Calcium 8.1 L 8.0 L (8.4-10.2) mg/dL Calcium panel 02/16/19 02/17/19 Range/Units 16:09 05:31 Calcium 8.1 L 8.0 L (8.4-10.2) mg/dL Pituitary panel 02/16/19 02/17/19 Range/Units 16:09 05:31 Sodium 139 135 L (137-145) mmol/L Potassium 3.1 L 3.7 (3.6-5.0) mmol/L Chloride 96.6 L 96.3 L (98-107) mmol/L Carbon Dioxide 24 17 L D (22-30) mmol/L BUN 40 H 50 H (7-17) mg/dL Creatinine 2.1 H 2.4 H (0.7-1.2) mg/dL Glucose 158 H 125 H (65-100) mg/dL Calcium 8.1 L 8.0 L (8.4-10.2) mg/dL Adrenal panel 02/16/19 02/17/19 Range/Units 16:09 05:31 Sodium 139 135 L (137-145) mmol/L Potassium 3.1 L 3.7 (3.6-5.0) mmol/L Chloride 96.6 L 96.3 L (98-107) mmol/L Carbon Dioxide 24 17 L D (22-30) mmol/L BUN 40 H 50 H (7-17) mg/dL Creatinine 2.1 H 2.4 H (0.7-1.2) mg/dL Glucose 158 H 125 H (65-100) mg/dL Calcium 8.1 L 8.0 L (8.4-10.2) mg/dL
[2019-02-17] MEDS: DEXTROSE 50% IN WATER (25GM) 50 ML SYRINGE IV PRN ×5 (13:52→22:01)
--- NOTE | 2019-02-17 14:56 | Progress Note ---
Assessment and Plan Impression * Patient most likely has acute on chronic renal failure. Her serum creatinine was 1.6 back in 2017. * ATN * Hypotension * sepsis * Respiratory failure * Morbid obesity * Hyperkalemia * Metabolic acidosis * Hypoglycemia * Anemia Recommendations * Status post Vas-Cath placement on 02/10/2019 and initiation of dialysis * hold hd today * hd q MWF as tolerated, monitor for recover * keep MAP >65 * Her hyperkalemia has been corrected. * She may have developed ATN on top for chronic kidney disease. * Renal ultrasound is normal. No obstruction. * Follow up results of vasculitis workup * Monitor fluid status and electrolytes closely * Avoid nephrotoxins * Discussed with patient's nurse as well as catering staff member Subjective Date of service: 02/17/19 Principal diagnosis: Ac. hypercapnic resp. failure; Severe Sepsis with Shock; JESÚS on CKD; AUDI Interval history: resting in bed today Objective - Exam Narrative Exam: General appearance: well-developed, well-nourished EENT: ATNC, PERRL Neck: no JVD Respiratory: Present: Clear to Ascultation Cardiology: regular, S1S2 Gastrointestinal: normal, normoactive bowel sounds Integumentary: no rash Neurologic: alert and oriented x3, CN 3-12 intact Psychiatric: mood/affect appropriate - Vital Signs Vital signs: Vital Signs - 12hr 02/17/19 02/17/19 02/17/19 03:00 03:15 03:30 Temperature Pulse Rate 86 86 89 Pulse Rate [ Anterior Bilateral Throughout] Pulse Rate [ Bilateral Throughout] Pulse Rate [ From Monitor] Respiratory 20 20 20 Rate Respiratory Rate [Anterior Bilateral Throughout] Respiratory Rate [Bilateral Throughout] Blood Pressure 114/69 120/68 120/68 O2 Sat by Pulse 94 Oximetry 02/17/19 02/17/19 02/17/19 03:35 03:45 04:00 Temperature 102.1 F H Pulse Rate 89 86 86 Pulse Rate [ Anterior Bilateral Throughout] Pulse Rate [ Bilateral Throughout] Pulse Rate [ 83 From Monitor] Respiratory 20 20 20 Rate Respiratory Rate [Anterior Bilateral Throughout] Respiratory Rate [Bilateral Throughout] Blood Pressure 107/61 107/60 O2 Sat by Pulse 98 95 Oximetry 02/17/19 02/17/19 02/17/19 04:15 04:30 04:32 Temperature Pulse Rate 85 85 Pulse Rate [ Anterior Bilateral Throughout] Pulse Rate [ Bilateral Throughout] Pulse Rate [ From Monitor] Respiratory 20 20 20 Rate Respiratory Rate [Anterior Bilateral Throughout] Respiratory Rate [Bilateral Throughout] Blood Pressure 109/62 110/62 O2 Sat by Pulse Oximetry 02/17/19 02/17/19 02/17/19 04:35 04:45 05:00 Temperature 102.1 F H Pulse Rate 85 84 Pulse Rate [ Anterior Bilateral Throughout] Pulse Rate [ Bilateral Throughout] Pulse Rate [ From Monitor] Respiratory 20 20 Rate Respiratory Rate [Anterior Bilateral Throughout] Respiratory Rate [Bilateral Throughout] Blood Pressure 113/63 112/62 O2 Sat by Pulse 93 Oximetry 02/17/19 02/17/19 02/17/19 05:15 05:20 05:30 Temperature Pulse Rate 84 84 84 Pulse Rate [ Anterior Bilateral Throughout] Pulse Rate [ Bilateral Throughout] Pulse Rate [ From Monitor] Respiratory 24 25 H Rate Respiratory Rate [Anterior Bilateral Throughout] Respiratory Rate [Bilateral Throughout] Blood Pressure 110/64 104/59 O2 Sat by Pulse 94 Oximetry 02/17/19 02/17/19 02/17/19 05:32 05:45 06:00 Temperature Pulse Rate 84 85 Pulse Rate [ Anterior Bilateral Throughout] Pulse Rate [ Bilateral Throughout] Pulse Rate [ From Monitor] Respiratory 20 25 H 24 Rate Respiratory Rate [Anterior Bilateral Throughout] Respiratory Rate [Bilateral Throughout] Blood Pressure 108/61 99/56 O2 Sat by Pulse 95 Oximetry 02/17/19 02/17/19 02/17/19 06:15 06:30 06:45 Temperature Pulse Rate 86 87 88 Pulse Rate [ Anterior Bilateral Throughout] Pulse Rate [ Bilateral Throughout] Pulse Rate [ From Monitor] Respiratory 24 25 H 25 H Rate Respiratory Rate [Anterior Bilateral Throughout] Respiratory Rate [Bilateral Throughout] Blood Pressure 89/53 89/54 76/50 O2 Sat by Pulse Oximetry 02/17/19 02/17/19 02/17/19 07:00 07:15 07:30 Temperature Pulse Rate 92 H 95 H 97 H Pulse Rate [ Anterior Bilateral Throughout] Pulse Rate [ Bilateral Throughout] Pulse Rate [ From Monitor] Respiratory 23 18 19 Rate Respiratory Rate [Anterior Bilateral Throughout] Respiratory Rate [Bilateral Throughout] Blood Pressure 75/45 74/47 84/45 O2 Sat by Pulse 98 97 Oximetry 02/17/19 02/17/19 02/17/19 07:32 07:45 08:00 Temperature 103.8 F H Pulse Rate 97 H 90 Pulse Rate [ 94 H Anterior Bilateral Throughout] Pulse Rate [ 86 Bilateral Throughout] Pulse Rate [ 98 H From Monitor] Respiratory 22 20 Rate Respiratory 25 H Rate [Anterior Bilateral Throughout] Respiratory 20 Rate [Bilateral Throughout] Blood Pressure 79/47 79/46 O2 Sat by Pulse 99 Oximetry 02/17/19 02/17/19 02/17/19 08:15 08:30 08:45 Temperature Pulse Rate 99 H 101 H 98 H Pulse Rate [ Anterior Bilateral Throughout] Pulse Rate [ Bilateral Throughout] Pulse Rate [ From Monitor] Respiratory 26 H 26 H 10 L Rate Respiratory Rate [Anterior Bilateral Throughout] Respiratory Rate [Bilateral Throughout] Blood Pressure 73/40 73/41 96/57 O2 Sat by Pulse 98 95 95 Oximetry 02/17/19 02/17/19 02/17/19 09:00 09:15 09:30 Temperature Pulse Rate 95 H 94 H 93 H Pulse Rate [ Anterior Bilateral Throughout] Pulse Rate [ Bilateral Throughout] Pulse Rate [ From Monitor] Respiratory 16 16 18 Rate Respiratory Rate [Anterior Bilateral Throughout] Respiratory Rate [Bilateral Throughout] Blood Pressure 98/59 94/59 90/59 O2 Sat by Pulse 93 95 Oximetry 02/17/19 02/17/19 02/17/19 09:45 10:00 10:15 Temperature Pulse Rate 93 H 93 H 94 H Pulse Rate [ Anterior Bilateral Throughout] Pulse Rate [ Bilateral Throughout] Pulse Rate [ From Monitor] Respiratory 17 18 18 Rate Respiratory Rate [Anterior Bilateral Throughout] Respiratory Rate [Bilateral Throughout] Blood Pressure 92/54 94/57 88/56 O2 Sat by Pulse 92 91 96 Oximetry 02/17/19 02/17/19 02/17/19 10:30 10:45 11:00 Temperature Pulse Rate 95 H 95 H 96 H Pulse Rate [ Anterior Bilateral Throughout] Pulse Rate [ Bilateral Throughout] Pulse Rate [ From Monitor] Respiratory 17 18 18 Rate Respiratory Rate [Anterior Bilateral Throughout] Respiratory Rate [Bilateral Throughout] Blood Pressure 96/56 95/54 97/55 O2 Sat by Pulse 100 100 Oximetry 02/17/19 02/17/19 02/17/19 11:15 11:30 11:45 Temperature Pulse Rate 96 H 97 H 97 H Pulse Rate [ Anterior Bilateral Throughout] Pulse Rate [ Bilateral Throughout] Pulse Rate [ From Monitor] Respiratory 18 18 19 Rate Respiratory Rate [Anterior Bilateral Throughout] Respiratory Rate [Bilateral Throughout] Blood Pressure 88/47 98/57 89/54 O2 Sat by Pulse 100 99 99 Oximetry 02/17/19 02/17/19 02/17/19 12:00 12:15 12:30 Temperature 100.4 F H Pulse Rate 97 H 99 H 98 H Pulse Rate [ Anterior Bilateral Throughout] Pulse Rate [ Bilateral Throughout] Pulse Rate [ 97 H From Monitor] Respiratory 18 19 20 Rate Respiratory Rate [Anterior Bilateral Throughout] Respiratory Rate [Bilateral Throughout] Blood Pressure 93/50 104/57 93/55 O2 Sat by Pulse 100 99 91 Oximetry 02/17/19 02/17/19 02/17/19 12:45 13:00 13:15 Temperature Pulse Rate 97 H 95 H 97 H Pulse Rate [ Anterior Bilateral Throughout] Pulse Rate [ Bilateral Throughout] Pulse Rate [ From Monitor] Respiratory 19 20 19 Rate Respiratory Rate [Anterior Bilateral Throughout] Respiratory Rate [Bilateral Throughout] Blood Pressure 92/55 81/56 96/57 O2 Sat by Pulse 89 99 99 Oximetry - Lab 02/17/19 05:31 02/17/19 05:31 Most recent lab results ABG pH 7.368 pH Units (7.350-7.450) 02/14/19 18:07 ABG pCO2 44.1 mm Hg 02/14/19 18:07 ABG pO2 86.4 mm Hg (80.0-90.0) 02/14/19 18:07 ABG HCO3 24.8 mmol/L (20.0-26.0) 02/14/19 18:07 ABG O2 Saturation 96.7 % (95.0-99.0) 02/14/19 18:07 Calcium 8.0 mg/dL (8.4-10.2) L 02/17/19 05:31 Phosphorus 4.10 mg/dL (2.5-4.5) 02/09/19 12:47 Urine Creatinine 162.4 mg/dL (0.1-20.0) H 02/09/19 14:30 Urine Sodium 38 mmol/L 02/09/19 14:30 Urine Total Protein 49 mg/dL (5-11.8) H 02/09/19 14:30 Medications & Allergies - Medications Allergies/Adverse Reactions: Allergies No Known Allergies Allergy (Verified 06/21/16 01:02) Home Medications: Home Medications Medication Instructions Recorded Confirmed Last Taken Type Fluticasone [Flonase] 50 mcg IH Q4-6H PRN 06/21/16 02/10/19 Unknown History Gabapentin [Neurontin] 800 mg PO Q8H 06/21/16 02/10/19 06/19/16 History Glimepiride [Amaryl] 2 mg PO QAM 06/21/16 02/10/19 06/20/16 History Insulin Glargine,Hum.rec.anlog 100 units SUB-Q QHS 06/21/16 02/10/19 06/19/16 History [Lantus Solostar] Lisinopril [Zestril TAB] 40 mg PO QDAY 06/21/16 02/10/19 06/20/16 History Metformin HCl [Metformin HCl ER] 500 mg PO BID 06/21/16 02/10/19 06/20/16 History amLODIPine [Norvasc] 5 mg PO DAILY 06/21/16 02/10/19 06/20/16 History Albuterol Sulfate [Albuterol 0.63% 0.63 mg IH TID PRN #1 box 06/22/16 02/10/19 Unknown Rx NEBS] Azithromycin [Zithromax TAB] 250 mg PO QDAY #6 tablet 06/22/16 02/10/19 Unknown Rx Benzonatate [Tessalon Perles] 100 mg PO Q8HR #30 capsule 06/22/16 02/10/19 Unknown Rx Ipratropium [Atrovent NEB] 0.5 mg IH Q8HRT #1 box 06/22/16 02/10/19 Unknown Rx Nebulizer and Compressor 1 each MC DAILY PRN #1 each 06/22/16 02/10/19 Unknown Rx [Devilbiss Pulmoneb Lt Comp-Neb] Prednisone [predniSONE 10 mg 10 mg PO .TAPER #1 tab.ds.pk 06/22/16 02/10/19 Unknown Rx (6-Day Pack, 21 Tabs)] Active Medications: Generic Name Dose Route Start Last Admin Trade Name Freq PRN Reason Stop Dose Admin Acetaminophen 650 mg 02/09/19 22:59 02/17/19 10:00 Tylenol PO 650 mg Q4H PRN Administration Pain MILD(1-3)/Fever >100.5/ARREDONDO Albumin Human 25 gm 02/11/19 12:02 Alburx 25% (Albumin) IV TREVA PRN Hypotension Albuterol 1.25 mg 02/10/19 01:36 Proventil IH TIDRT PRN Shortness Of Breath Albuterol/Ipratropium 1 ampul 02/10/19 14:00 02/17/19 07:30 Duoneb *Not For Prn Use* IH 1 ampul Q6HRT YISEL Administration Lipase/Protease/Amylase 1 each 02/17/19 07:58 Pancregopi Mcbride 10,500 Unit FEEDTUBE PRN PRN For Clogged Feeding Tube Dextrose 50 ml 02/13/19 18:56 02/17/19 14:30 D50w (25gm) Syringe IV 50 ml Q30MIN PRN Administration Hypoglycemia Protocol Famotidine 20 mg 02/16/19 10:00 02/17/19 09:02 Pepcid IV 20 mg DAILY YISEL Administration Gabapentin 800 mg 02/09/19 23:00 02/17/19 05:08 Gabapentin PO 800 mg Q8HR YISEL Administration Heparin Sodium (Porcine) 5,000 unit 02/10/19 22:00 02/17/19 09:02 Heparin SUB-Q 5,000 unit Q12HR YISEL Administration Hydromorphone HCl 0.25 mg 02/09/19 22:59 Dilaudid IV Q3H PRN Pain, Moderate (4-6) Hydrophilic Ointment 1 applic 02/15/19 18:50 Vaseline Lip Therapy TP Q2HR PRN Dry Lips Sodium Chloride 100 mls @ 999 mls/hr 02/11/19 12:02 Nacl 0.9% IV TREVA PRN Hypotension MEROPENEM/NS 1 GRAM/100 ML 1 gram in 100 mls @ 100 mls/hr 02/15/19 16:00 02/17/19 09:03 Merrem/Ns 1 Gram/100 Ml IV 100 mls/hr Q24HR YISEL Administration Protocol Clindamycin HCl 900 mg in 50 mls @ 100 mls/hr 02/15/19 17:00 02/17/19 14:26 Cleocin 900 Mg/50 Ml IV 100 mls/hr Q8HR YISEL Administration Protocol Fentanyl Citrate 2,000 mcg in 100 mls @ 8.4 mls/hr 02/15/19 19:00 02/17/19 08:19 Fentanyl Drip Premix IV 0 mcg/kg/hr TITR YISEL 0 mls/hr Titration Protocol 1 MCG/KG/HR Propofol 1,000 mg in 100 mls @ 5.04 mls/hr 02/15/19 19:00 02/16/19 07:29 Diprivan 10 Mg/Ml IV 0 mcg/kg/min TITR YISEL 0 mls/hr Titration Protocol 5 MCG/KG/MIN Norepinephrine 8 mg/ Sodium 250 mls @ 3.75 mls/hr 02/15/19 23:45 02/17/19 14:43 Chloride IV 30 mcg/min TITR YISEL 56.25 mls/hr Administration Protocol 2 MCG/MIN Fluconazole 200 mg in 100 mls @ 100 mls/hr 02/16/19 10:00 02/17/19 09:03 Diflucan IV 100 mls/hr Q24HR [facility] Administration Protocol Vasopressin 20 unit/ Sodium 101 mls @ 9.09 mls/hr 02/16/19 22:00 02/17/19 11:34 Chloride IV 0.03 units/min TITR YISEL 9.09 mls/hr Administration Protocol 0.03 UNITS/MIN Phenylephrine HCl 100 mg/ 100 mls @ 3 mls/hr 02/17/19 07:45 02/17/19 14:46 Sodium Chloride IV 90 mcg/min TITR YISEL 5.4 mls/hr Titration Protocol 50 MCG/MIN Insulin Glargine 10 units 02/16/19 11:00 02/17/19 09:02 Lantus SUB-Q Not Given QAMDIAB [facility] Insulin Human Lispro 0 unit 02/13/19 19:00 02/17/19 05:50 Humalog SUB-Q 3 unit Q6HR [facility] Administration Protocol Multi-Ingred Cream/Lotion/Oil/Oint 1 applic 02/15/19 18:50 02/15/19 22:08 Artificial Tears Ophth Oint OU 1 applic Q4HR PRN Administration Dry Eye(s) Ondansetron HCl 4 mg 02/09/19 22:59 Zofran IV Q8H PRN Nausea And Vomiting Oxycodone/Acetaminophen 1 tab 02/09/19 22:59 Percocet 5/325 PO Q6H PRN Pain, Moderate (4-6) Simple Syrup 15 ml 02/17/19 07:58 Simple Syrup FEEDTUBE PRN PRN Hypoglycemia Simple Syrup 30 ml 02/17/19 07:58 02/17/19 14:30 Simple Syrup FEEDTUBE 30 ml PRN PRN Administration Hypoglycemia Sodium Bicarbonate 325 mg 02/17/19 07:58 Sodium Bicarbonate FEEDTUBE PRN PRN For Clogged Feeding Tube Sodium Chloride 10 ml 02/10/19 10:00 02/17/19 09:04 Sodium Chloride Flush Syringe 10 Ml IV 10 ml BID YISEL Administration Sodium Chloride 10 ml 02/09/19 22:59 02/10/19 06:44 Sodium Chloride Flush Syringe 10 Ml IV 10 ml PRN PRN Administration LINE FLUSH Sodium Hypochlorite 1 applic 02/15/19 16:06 02/17/19 13:05 Dakin's Half Strength TP 1 applicatio Q12H PRN Administration Wound Care
--- NOTE | 2019-02-17 15:55 | Progress Note ---
Subjective Date of service: 02/17/19 Principal diagnosis: Ac. hypercapnic resp. failure; Severe Sepsis with Shock; JESÚS on CKD; AUDI Interval history: Mecrotizing fasciitis of left thigh/groin Objective Vital Signs - 12hr 02/17/19 02/17/19 02/17/19 04:00 04:15 04:30 Temperature 102.1 F H Pulse Rate 86 85 85 Pulse Rate [ Anterior Bilateral Throughout] Pulse Rate [ Bilateral Throughout] Pulse Rate [ From Monitor] Respiratory 20 20 20 Rate Respiratory Rate [Anterior Bilateral Throughout] Respiratory Rate [Bilateral Throughout] Blood Pressure 107/60 109/62 110/62 O2 Sat by Pulse 95 Oximetry 02/17/19 02/17/19 02/17/19 04:32 04:35 04:45 Temperature 102.1 F H Pulse Rate 85 Pulse Rate [ Anterior Bilateral Throughout] Pulse Rate [ Bilateral Throughout] Pulse Rate [ From Monitor] Respiratory 20 20 Rate Respiratory Rate [Anterior Bilateral Throughout] Respiratory Rate [Bilateral Throughout] Blood Pressure 113/63 O2 Sat by Pulse Oximetry 02/17/19 02/17/19 02/17/19 05:00 05:15 05:20 Temperature Pulse Rate 84 84 84 Pulse Rate [ Anterior Bilateral Throughout] Pulse Rate [ Bilateral Throughout] Pulse Rate [ From Monitor] Respiratory 20 24 Rate Respiratory Rate [Anterior Bilateral Throughout] Respiratory Rate [Bilateral Throughout] Blood Pressure 112/62 110/64 O2 Sat by Pulse 93 Oximetry 02/17/19 02/17/19 02/17/19 05:30 05:32 05:45 Temperature Pulse Rate 84 84 Pulse Rate [ Anterior Bilateral Throughout] Pulse Rate [ Bilateral Throughout] Pulse Rate [ From Monitor] Respiratory 25 H 20 25 H Rate Respiratory Rate [Anterior Bilateral Throughout] Respiratory Rate [Bilateral Throughout] Blood Pressure 104/59 108/61 O2 Sat by Pulse 94 Oximetry 02/17/19 02/17/19 02/17/19 06:00 06:15 06:30 Temperature Pulse Rate 85 86 87 Pulse Rate [ Anterior Bilateral Throughout] Pulse Rate [ Bilateral Throughout] Pulse Rate [ From Monitor] Respiratory 24 24 25 H Rate Respiratory Rate [Anterior Bilateral Throughout] Respiratory Rate [Bilateral Throughout] Blood Pressure 99/56 89/53 89/54 O2 Sat by Pulse 95 Oximetry 02/17/19 02/17/19 02/17/19 06:45 07:00 07:15 Temperature Pulse Rate 88 92 H 95 H Pulse Rate [ Anterior Bilateral Throughout] Pulse Rate [ Bilateral Throughout] Pulse Rate [ From Monitor] Respiratory 25 H 23 18 Rate Respiratory Rate [Anterior Bilateral Throughout] Respiratory Rate [Bilateral Throughout] Blood Pressure 76/50 75/45 74/47 O2 Sat by Pulse 98 97 Oximetry 02/17/19 02/17/19 02/17/19 07:30 07:32 07:45 Temperature Pulse Rate 97 H 97 H Pulse Rate [ 94 H Anterior Bilateral Throughout] Pulse Rate [ 86 Bilateral Throughout] Pulse Rate [ From Monitor] Respiratory 19 22 Rate Respiratory 25 H Rate [Anterior Bilateral Throughout] Respiratory 20 Rate [Bilateral Throughout] Blood Pressure 84/45 79/47 O2 Sat by Pulse Oximetry 02/17/19 02/17/19 02/17/19 08:00 08:15 08:30 Temperature 103.8 F H Pulse Rate 90 99 H 101 H Pulse Rate [ Anterior Bilateral Throughout] Pulse Rate [ Bilateral Throughout] Pulse Rate [ 98 H From Monitor] Respiratory 20 26 H 26 H Rate Respiratory Rate [Anterior Bilateral Throughout] Respiratory Rate [Bilateral Throughout] Blood Pressure 79/46 73/40 73/41 O2 Sat by Pulse 99 98 95 Oximetry 02/17/19 02/17/19 02/17/19 08:45 09:00 09:15 Temperature Pulse Rate 98 H 95 H 94 H Pulse Rate [ Anterior Bilateral Throughout] Pulse Rate [ Bilateral Throughout] Pulse Rate [ From Monitor] Respiratory 10 L 16 16 Rate Respiratory Rate [Anterior Bilateral Throughout] Respiratory Rate [Bilateral Throughout] Blood Pressure 96/57 98/59 94/59 O2 Sat by Pulse 95 93 Oximetry 02/17/19 02/17/19 02/17/19 09:30 09:45 10:00 Temperature Pulse Rate 93 H 93 H 93 H Pulse Rate [ Anterior Bilateral Throughout] Pulse Rate [ Bilateral Throughout] Pulse Rate [ From Monitor] Respiratory 18 17 18 Rate Respiratory Rate [Anterior Bilateral Throughout] Respiratory Rate [Bilateral Throughout] Blood Pressure 90/59 92/54 94/57 O2 Sat by Pulse 95 92 91 Oximetry 02/17/19 02/17/19 02/17/19 10:15 10:30 10:45 Temperature Pulse Rate 94 H 95 H 95 H Pulse Rate [ Anterior Bilateral Throughout] Pulse Rate [ Bilateral Throughout] Pulse Rate [ From Monitor] Respiratory 18 17 18 Rate Respiratory Rate [Anterior Bilateral Throughout] Respiratory Rate [Bilateral Throughout] Blood Pressure 88/56 96/56 95/54 O2 Sat by Pulse 96 100 Oximetry 02/17/19 02/17/19 02/17/19 11:00 11:15 11:30 Temperature Pulse Rate 96 H 96 H 97 H Pulse Rate [ Anterior Bilateral Throughout] Pulse Rate [ Bilateral Throughout] Pulse Rate [ From Monitor] Respiratory 18 18 18 Rate Respiratory Rate [Anterior Bilateral Throughout] Respiratory Rate [Bilateral Throughout] Blood Pressure 97/55 88/47 98/57 O2 Sat by Pulse 100 100 99 Oximetry 02/17/19 02/17/19 02/17/19 11:45 12:00 12:15 Temperature 100.4 F H Pulse Rate 97 H 97 H 99 H Pulse Rate [ Anterior Bilateral Throughout] Pulse Rate [ Bilateral Throughout] Pulse Rate [ 97 H From Monitor] Respiratory 19 18 19 Rate Respiratory Rate [Anterior Bilateral Throughout] Respiratory Rate [Bilateral Throughout] Blood Pressure 89/54 93/50 104/57 O2 Sat by Pulse 99 100 99 Oximetry 02/17/19 02/17/19 02/17/19 12:30 12:45 13:00 Temperature Pulse Rate 98 H 97 H 95 H Pulse Rate [ Anterior Bilateral Throughout] Pulse Rate [ Bilateral Throughout] Pulse Rate [ From Monitor] Respiratory 20 19 20 Rate Respiratory Rate [Anterior Bilateral Throughout] Respiratory Rate [Bilateral Throughout] Blood Pressure 93/55 92/55 81/56 O2 Sat by Pulse 91 89 99 Oximetry 02/17/19 02/17/19 02/17/19 13:15 14:00 15:25 Temperature Pulse Rate 97 H 93 H Pulse Rate [ 94 H Anterior Bilateral Throughout] Pulse Rate [ 84 Bilateral Throughout] Pulse Rate [ From Monitor] Respiratory 19 Rate Respiratory 20 Rate [Anterior Bilateral Throughout] Respiratory 20 Rate [Bilateral Throughout] Blood Pressure 96/57 101/63 O2 Sat by Pulse 99 100 Oximetry Constitutional: alert, appears uncomfortable, other (elderly looking morbidly obese AAF, normocephalic on NC with mildly increased respiratory effort at rest) Eyes: non-icteric ENT: oropharynx moist, other (on nasal cannula) Neck: supple, no lymphadenopathy, no JVD, other (+ large neck circumference) Effort: mildly labored Ascultation: Bilateral: clear, diminished breath sounds Percussion: Bilateral: not dull Cardiovascular: regular rate and rhythm, other (S1,S2, ) Gastrointestinal: normoactive bowel sounds, soft, non-tender, non-distended, other (Protuberant) Integumentary: rash (stasisi dermatitis) Extremities: no cyanosis, no edema, pulses normal, no ischemia or petechiae, other (right groin trialysis catheter) Neurologic: non-focal exam (grossly), pupils equal and round, other (Encephalopathic) Psychiatric: mood appropriate, affect normal CBC and BMP: 02/17/19 05:31 02/17/19 05:31 ABG, PT/INR, D-dimer: ABG POC ABG pH 7.352 (7.35-7.45) 02/17/19 05:22 ABG pH 7.368 pH Units (7.350-7.450) 02/14/19 18:07 POC ABG pCO2 41.0 (35-45) 02/17/19 05:22 ABG pCO2 44.1 mm Hg 02/14/19 18:07 POC ABG pO2 77 (80-105) L 02/17/19 05:22 ABG pO2 86.4 mm Hg (80.0-90.0) 02/14/19 18:07 POC ABG HCO3 22.7 (22-26 mml/L) 02/17/19 05:22 POC ABG Total CO2 24 (23-27mmol/L) 02/17/19 05:22 POC ABG O2 Sat 95 02/17/19 05:22 ABG O2 Saturation 96.7 % (95.0-99.0) 02/14/19 18:07 PT/INR, D-dimer PT 18.3 Sec. (12.2-14.9) H 02/16/19 05:15 INR 1.54 (0.87-1.13) H 02/16/19 05:15 Abnormal lab findings: Abnormal Labs 02/09/19 02/09/19 02/09/19 08:48 09:16 09:16 WBC 14.6 H RBC 2.48 L Hgb 8.2 L Hct 25.4 L MCV 102 H MCH 33 H RDW 16.1 H Plt Count Seg Neuts % (Manual) 94.0 H Lymphocytes % (Manual) 1.0 L Nucleated RBC % 1.0 H Seg Neutrophils # Man 13.7 H Lymphocytes # (Manual) 0.1 L PT 17.8 H INR 1.49 H POC ABG pH POC ABG pCO2 POC ABG pO2 ABG Hemoglobin Oxyhemoglobin Sodium Potassium Chloride Carbon Dioxide BUN Creatinine Glucose POC Glucose 51 L Hemoglobin A1c Calcium Total Bilirubin Ammonia Total Creatine Kinase Troponin T Total Protein Albumin Qvjsb-1-Tyivfirou Beta Globulins Gamma Globulins Abnorm Protein Band 1 Abnorm Protein Band 2 PEP Interpretation Cholesterol LDL Cholesterol Direct HDL Cholesterol TSH Urine WBC (Auto) Urine Creatinine Urine Total Protein Immunofix Electrophor 02/09/19 02/09/19 02/09/19 09:16 09:16 09:16 WBC RBC Hgb Hct MCV MCH RDW Plt Count Seg Neuts % (Manual) Lymphocytes % (Manual) Nucleated RBC % Seg Neutrophils # Man Lymphocytes # (Manual) PT INR POC ABG pH POC ABG pCO2 POC ABG pO2 ABG Hemoglobin Oxyhemoglobin Sodium 131 L Potassium 6.0 H Chloride 91.4 L Carbon Dioxide 18 L BUN 115 H Creatinine 6.8 H Glucose POC Glucose Hemoglobin A1c Calcium Total Bilirubin 2.90 H Ammonia 61.0 H Total Creatine Kinase 264 H Troponin T 0.073 H Total Protein 8.8 H Albumin 2.6 L Zqmaa-6-Towmkrkox Beta Globulins Gamma Globulins Abnorm Protein Band 1 Abnorm Protein Band 2 PEP Interpretation Cholesterol 47 L LDL Cholesterol Direct 13 L HDL Cholesterol 27 L TSH 5.570 H Urine WBC (Auto) Urine Creatinine Urine Total Protein Immunofix Electrophor 02/09/19 02/09/19 02/09/19 12:47 14:30 14:30 WBC RBC Hgb Hct MCV MCH RDW Plt Count Seg Neuts % (Manual) Lymphocytes % (Manual) Nucleated RBC % Seg Neutrophils # Man Lymphocytes # (Manual) PT INR POC ABG pH POC ABG pCO2 POC ABG pO2 ABG Hemoglobin Oxyhemoglobin Sodium 131 L Potassium 5.6 H Chloride 91.8 L Carbon Dioxide 17 L BUN 117 H Creatinine 6.5 H Glucose 50 L POC Glucose Hemoglobin A1c Calcium Total Bilirubin Ammonia Total Creatine Kinase Troponin T Total Protein Albumin Fymyv-1-Kfgkkuesg Beta Globulins Gamma Globulins Abnorm Protein Band 1 Abnorm Protein Band 2 PEP Interpretation Cholesterol LDL Cholesterol Direct HDL Cholesterol TSH Urine WBC (Auto) 32.0 H Urine Creatinine 162.4 H Urine Total Protein 49 H Immunofix Electrophor 02/09/19 02/09/19 02/09/19 15:05 15:39 19:03 WBC RBC Hgb Hct MCV MCH RDW Plt Count Seg Neuts % (Manual) Lymphocytes % (Manual) Nucleated RBC % Seg Neutrophils # Man Lymphocytes # (Manual) PT INR POC ABG pH POC ABG pCO2 POC ABG pO2 ABG Hemoglobin Oxyhemoglobin Sodium 131 L Potassium 5.7 H Chloride 93.6 L Carbon Dioxide 19 L BUN 111 H Creatinine 7.0 H Glucose 48 L POC Glucose < 40 L 112 H Hemoglobin A1c Calcium Total Bilirubin Ammonia Total Creatine Kinase Troponin T Total Protein Albumin Ssotd-5-Hsfoionda Beta Globulins Gamma Globulins Abnorm Protein Band 1 Abnorm Protein Band 2 PEP Interpretation Cholesterol LDL Cholesterol Direct HDL Cholesterol TSH Urine WBC (Auto) Urine Creatinine Urine Total Protein Immunofix Electrophor 02/09/19 02/09/19 02/09/19 19:03 19:03 21:59 WBC RBC Hgb Hct MCV MCH RDW Plt Count Seg Neuts % (Manual) Lymphocytes % (Manual) Nucleated RBC % Seg Neutrophils # Man Lymphocytes # (Manual) PT INR POC ABG pH POC ABG pCO2 POC ABG pO2 ABG Hemoglobin Oxyhemoglobin Sodium Potassium Chloride Carbon Dioxide BUN Creatinine Glucose POC Glucose 61 L Hemoglobin A1c Calcium Total Bilirubin Ammonia Total Creatine Kinase Troponin T Total Protein Albumin 2.4 L Oneqn-8-Asvphluct 0.5 H Beta Globulins 2.8 H Gamma Globulins 0.7 L Abnorm Protein Band 1 2.7 H Abnorm Protein Band 2 0.3 H PEP Interpretation see below H Cholesterol LDL Cholesterol Direct HDL Cholesterol TSH Urine WBC (Auto) Urine Creatinine Urine Total Protein Immunofix Electrophor see below H 02/09/19 02/10/19 02/10/19 23:24 03:06 06:36 WBC RBC Hgb Hct MCV MCH RDW Plt Count Seg Neuts % (Manual) Lymphocytes % (Manual) Nucleated RBC % Seg Neutrophils # Man Lymphocytes # (Manual) PT INR POC ABG pH POC ABG pCO2 POC ABG pO2 ABG Hemoglobin Oxyhemoglobin Sodium Potassium Chloride Carbon Dioxide BUN Creatinine Glucose POC Glucose < 40 L 60 L Hemoglobin A1c 8.5 H Calcium Total Bilirubin Ammonia Total Creatine Kinase Troponin T Total Protein Albumin Lamnc-9-Ljbtjorrc Beta Globulins Gamma Globulins Abnorm Protein Band 1 Abnorm Protein Band 2 PEP Interpretation Cholesterol LDL Cholesterol Direct HDL Cholesterol TSH Urine WBC (Auto) Urine Creatinine Urine Total Protein Immunofix Electrophor 02/10/19 02/10/19 02/10/19 06:39 07:21 09:28 WBC 14.7 H RBC 2.60 L Hgb 8.5 L Hct 26.9 L MCV 104 H MCH 33 H RDW 16.6 H Plt Count Seg Neuts % (Manual) 96.0 H Lymphocytes % (Manual) 1.0 L Nucleated RBC % 3.0 H Seg Neutrophils # Man 14.1 H Lymphocytes # (Manual) 0.1 L PT INR POC ABG pH POC ABG pCO2 POC ABG pO2 ABG Hemoglobin Oxyhemoglobin Sodium 130 L Potassium 6.2 H* Chloride 89.4 L Carbon Dioxide 17 L BUN 124 H Creatinine 6.8 H Glucose 120 H POC Glucose 120 H Hemoglobin A1c Calcium 8.3 L Total Bilirubin 3.10 H Ammonia Total Creatine Kinase Troponin T Total Protein 8.3 H Albumin 2.4 L Goats-9-Vygyenkqx Beta Globulins Gamma Globulins Abnorm Protein Band 1 Abnorm Protein Band 2 PEP Interpretation Cholesterol LDL Cholesterol Direct HDL Cholesterol TSH Urine WBC (Auto) Urine Creatinine Urine Total Protein Immunofix Electrophor 02/10/19 02/10/19 02/10/19 10:20 10:32 14:15 WBC RBC Hgb Hct MCV MCH RDW Plt Count Seg Neuts % (Manual) Lymphocytes % (Manual) Nucleated RBC % Seg Neutrophils # Man Lymphocytes # (Manual) PT INR POC ABG pH POC ABG pCO2 POC ABG pO2 ABG Hemoglobin Oxyhemoglobin Sodium Potassium 5.9 H Chloride Carbon Dioxide BUN Creatinine Glucose POC Glucose 64 L 67 L Hemoglobin A1c Calcium Total Bilirubin Ammonia Total Creatine Kinase Troponin T Total Protein Albumin Qgrsx-5-Whvbikcjx Beta Globulins Gamma Globulins Abnorm Protein Band 1 Abnorm Protein Band 2 PEP Interpretation Cholesterol LDL Cholesterol Direct HDL Cholesterol TSH Urine WBC (Auto) Urine Creatinine Urine Total Protein Immunofix Electrophor 02/10/19 02/11/19 02/11/19 20:06 04:48 07:56 WBC RBC Hgb Hct MCV MCH RDW Plt Count Seg Neuts % (Manual) Lymphocytes % (Manual) Nucleated RBC % Seg Neutrophils # Man Lymphocytes # (Manual) PT INR POC ABG pH POC ABG pCO2 POC ABG pO2 ABG Hemoglobin Oxyhemoglobin Sodium 130 L Potassium Chloride 91.2 L Carbon Dioxide 20 L BUN 81 H Creatinine 5.7 H Glucose POC Glucose 113 H 124 H Hemoglobin A1c Calcium 8.1 L Total Bilirubin Ammonia Total Creatine Kinase Troponin T Total Protein Albumin Moelw-8-Llwtmmqqw Beta Globulins Gamma Globulins Abnorm Protein Band 1 Abnorm Protein Band 2 PEP Interpretation Cholesterol LDL Cholesterol Direct HDL Cholesterol TSH Urine WBC (Auto) Urine Creatinine Urine Total Protein Immunofix Electrophor 02/11/19 02/11/19 02/11/19 10:35 11:46 14:56 WBC RBC Hgb Hct MCV MCH RDW Plt Count Seg Neuts % (Manual) Lymphocytes % (Manual) Nucleated RBC % Seg Neutrophils # Man Lymphocytes # (Manual) PT INR POC ABG pH 7.304 L POC ABG pCO2 47.7 H POC ABG pO2 142 H ABG Hemoglobin Oxyhemoglobin Sodium Potassium Chloride Carbon Dioxide BUN Creatinine Glucose POC Glucose 128 H 146 H Hemoglobin A1c Calcium Total Bilirubin Ammonia Total Creatine Kinase Troponin T Total Protein Albumin Klerz-1-Rppdjhmmi Beta Globulins Gamma Globulins Abnorm Protein Band 1 Abnorm Protein Band 2 PEP Interpretation Cholesterol LDL Cholesterol Direct HDL Cholesterol TSH Urine WBC (Auto) Urine Creatinine Urine Total Protein Immunofix Electrophor 02/11/19 02/11/19 02/12/19 18:16 23:48 05:35 WBC RBC Hgb Hct MCV MCH RDW Plt Count Seg Neuts % (Manual) Lymphocytes % (Manual) Nucleated RBC % Seg Neutrophils # Man Lymphocytes # (Manual) PT INR POC ABG pH POC ABG pCO2 POC ABG pO2 ABG Hemoglobin Oxyhemoglobin Sodium 133 L Potassium Chloride 93.8 L Carbon Dioxide 19 L BUN 61 H Creatinine 4.5 H Glucose 165 H POC Glucose 136 H 141 H Hemoglobin A1c Calcium 8.3 L Total Bilirubin Ammonia Total Creatine Kinase Troponin T Total Protein Albumin Tkypt-0-Shsnrgkkl Beta Globulins Gamma Globulins Abnorm Protein Band 1 Abnorm Protein Band 2 PEP Interpretation Cholesterol LDL Cholesterol Direct HDL Cholesterol TSH Urine WBC (Auto) Urine Creatinine Urine Total Protein Immunofix Electrophor 02/12/19 02/12/19 02/12/19 05:53 11:09 11:56 WBC RBC Hgb Hct MCV MCH RDW Plt Count Seg Neuts % (Manual) Lymphocytes % (Manual) Nucleated RBC % Seg Neutrophils # Man Lymphocytes # (Manual) PT INR POC ABG pH 7.336 L POC ABG pCO2 POC ABG pO2 ABG Hemoglobin Oxyhemoglobin Sodium Potassium Chloride Carbon Dioxide BUN Creatinine Glucose POC Glucose 170 H 187 H Hemoglobin A1c Calcium Total Bilirubin Ammonia Total Creatine Kinase Troponin T Total Protein Albumin Nycvv-9-Nqxrhhsxb Beta Globulins Gamma Globulins Abnorm Protein Band 1 Abnorm Protein Band 2 PEP Interpretation Cholesterol LDL Cholesterol Direct HDL Cholesterol TSH Urine WBC (Auto) Urine Creatinine Urine Total Protein Immunofix Electrophor 02/12/19 02/12/19 02/13/19 18:05 23:43 05:12 WBC RBC Hgb Hct MCV MCH RDW Plt Count Seg Neuts % (Manual) Lymphocytes % (Manual) Nucleated RBC % Seg Neutrophils # Man Lymphocytes # (Manual) PT INR POC ABG pH POC ABG pCO2 POC ABG pO2 ABG Hemoglobin Oxyhemoglobin Sodium Potassium Chloride 97.9 L Carbon Dioxide 19 L BUN 44 H Creatinine 3.1 H Glucose 252 H POC Glucose 207 H 236 H Hemoglobin A1c Calcium Total Bilirubin Ammonia Total Creatine Kinase Troponin T Total Protein Albumin Eotuu-0-Uqqvnrdhp Beta Globulins Gamma Globulins Abnorm Protein Band 1 Abnorm Protein Band 2 PEP Interpretation Cholesterol LDL Cholesterol Direct HDL Cholesterol TSH Urine WBC (Auto) Urine Creatinine Urine Total Protein Immunofix Electrophor 02/13/19 02/13/19 02/13/19 05:12 05:31 09:52 WBC 32.4 H RBC 2.54 L Hgb 8.3 L Hct 26.0 L MCV 102 H MCH 33 H RDW 16.5 H Plt Count Seg Neuts % (Manual) 92.0 H Lymphocytes % (Manual) 3.0 L Nucleated RBC % 1.0 H Seg Neutrophils # Man 29.8 H Lymphocytes # (Manual) 1.0 L PT INR POC ABG pH 7.337 L POC ABG pCO2 POC ABG pO2 ABG Hemoglobin Oxyhemoglobin Sodium Potassium Chloride Carbon Dioxide BUN Creatinine Glucose POC Glucose 237 H Hemoglobin A1c Calcium Total Bilirubin Ammonia Total Creatine Kinase Troponin T Total Protein Albumin Pgsds-5-Yxwpwadso Beta Globulins Gamma Globulins Abnorm Protein Band 1 Abnorm Protein Band 2 PEP Interpretation Cholesterol LDL Cholesterol Direct HDL Cholesterol TSH Urine WBC (Auto) Urine Creatinine Urine Total Protein Immunofix Electrophor 02/13/19 02/13/19 02/13/19 12:02 17:21 23:40 WBC RBC Hgb Hct MCV MCH RDW Plt Count Seg Neuts % (Manual) Lymphocytes % (Manual) Nucleated RBC % Seg Neutrophils # Man Lymphocytes # (Manual) PT INR POC ABG pH POC ABG pCO2 POC ABG pO2 ABG Hemoglobin Oxyhemoglobin Sodium Potassium Chloride Carbon Dioxide BUN Creatinine Glucose POC Glucose 318 H 342 H 338 H Hemoglobin A1c Calcium Total Bilirubin Ammonia Total Creatine Kinase Troponin T Total Protein Albumin Odcov-1-Vttfpdlmp Beta Globulins Gamma Globulins Abnorm Protein Band 1 Abnorm Protein Band 2 PEP Interpretation Cholesterol LDL Cholesterol Direct HDL Cholesterol TSH Urine WBC (Auto) Urine Creatinine Urine Total Protein Immunofix Electrophor 02/14/19 02/14/19 02/14/19 05:27 05:54 08:36 WBC 40.7 H* RBC 2.28 L Hgb 7.3 L Hct 23.2 L MCV 101 H MCH RDW 16.1 H Plt Count Seg Neuts % (Manual) Lymphocytes % (Manual) Nucleated RBC % Seg Neutrophils # Man Lymphocytes # (Manual) PT INR POC ABG pH POC ABG pCO2 POC ABG pO2 ABG Hemoglobin Oxyhemoglobin Sodium Potassium Chloride Carbon Dioxide 17 L BUN 65 H Creatinine 3.6 H Glucose 286 H POC Glucose 253 H Hemoglobin A1c Calcium Total Bilirubin Ammonia Total Creatine Kinase Troponin T Total Protein Albumin Paesi-8-Jnlrxzvvs Beta Globulins Gamma Globulins Abnorm Protein Band 1 Abnorm Protein Band 2 PEP Interpretation Cholesterol LDL Cholesterol Direct HDL Cholesterol TSH Urine WBC (Auto) Urine Creatinine Urine Total Protein Immunofix Electrophor 02/14/19 02/14/19 02/14/19 11:59 16:52 18:07 WBC RBC Hgb Hct MCV MCH RDW Plt Count Seg Neuts % (Manual) Lymphocytes % (Manual) Nucleated RBC % Seg Neutrophils # Man Lymphocytes # (Manual) PT INR POC ABG pH POC ABG pCO2 POC ABG pO2 ABG Hemoglobin 8.0 L Oxyhemoglobin 93.9 L Sodium Potassium Chloride Carbon Dioxide BUN Creatinine Glucose POC Glucose 253 H 210 H Hemoglobin A1c Calcium Total Bilirubin Ammonia Total Creatine Kinase Troponin T Total Protein Albumin Ryhfb-5-Tikptvmbq Beta Globulins Gamma Globulins Abnorm Protein Band 1 Abnorm Protein Band 2 PEP Interpretation Cholesterol LDL Cholesterol Direct HDL Cholesterol TSH Urine WBC (Auto) Urine Creatinine Urine Total Protein Immunofix Electrophor 02/14/19 02/14/19 02/15/19 18:46 23:44 05:23 WBC RBC Hgb Hct MCV MCH RDW Plt Count Seg Neuts % (Manual) Lymphocytes % (Manual) Nucleated RBC % Seg Neutrophils # Man Lymphocytes # (Manual) PT INR POC ABG pH POC ABG pCO2 POC ABG pO2 ABG Hemoglobin Oxyhemoglobin Sodium Potassium 3.4 L Chloride Carbon Dioxide BUN 49 H Creatinine 2.7 H Glucose 197 H POC Glucose 244 H 184 H Hemoglobin A1c Calcium 8.3 L Total Bilirubin Ammonia Total Creatine Kinase Troponin T Total Protein Albumin Icoww-2-Vliqbbemm Beta Globulins Gamma Globulins Abnorm Protein Band 1 Abnorm Protein Band 2 PEP Interpretation Cholesterol LDL Cholesterol Direct HDL Cholesterol TSH Urine WBC (Auto) Urine Creatinine Urine Total Protein Immunofix Electrophor 02/15/19 02/15/19 02/15/19 05:43 07:55 11:51 WBC 37.5 H RBC 2.20 L Hgb 7.1 L Hct 22.4 L MCV 102 H MCH RDW 16.0 H Plt Count 138 L Seg Neuts % (Manual) Lymphocytes % (Manual) Nucleated RBC % Seg Neutrophils # Man Lymphocytes # (Manual) PT INR POC ABG pH POC ABG pCO2 POC ABG pO2 ABG Hemoglobin Oxyhemoglobin Sodium Potassium Chloride Carbon Dioxide BUN Creatinine Glucose POC Glucose 202 H 240 H Hemoglobin A1c Calcium Total Bilirubin Ammonia Total Creatine Kinase Troponin T Total Protein Albumin Kgreg-1-Wxqkzciqq Beta Globulins Gamma Globulins Abnorm Protein Band 1 Abnorm Protein Band 2 PEP Interpretation Cholesterol LDL Cholesterol Direct HDL Cholesterol TSH Urine WBC (Auto) Urine Creatinine Urine Total Protein Immunofix Electrophor 02/15/19 02/15/19 02/16/19 18:58 23:25 04:47 WBC RBC Hgb Hct MCV MCH RDW Plt Count Seg Neuts % (Manual) Lymphocytes % (Manual) Nucleated RBC % Seg Neutrophils # Man Lymphocytes # (Manual) PT INR POC ABG pH 7.309 L POC ABG pCO2 47.1 H POC ABG pO2 125 H ABG Hemoglobin Oxyhemoglobin Sodium Potassium Chloride Carbon Dioxide BUN Creatinine Glucose POC Glucose 234 H 203 H Hemoglobin A1c Calcium Total Bilirubin Ammonia Total Creatine Kinase Troponin T Total Protein Albumin Ljsgd-9-Xlreqxfxw Beta Globulins Gamma Globulins Abnorm Protein Band 1 Abnorm Protein Band 2 PEP Interpretation Cholesterol LDL Cholesterol Direct HDL Cholesterol TSH Urine WBC (Auto) Urine Creatinine Urine Total Protein Immunofix Electrophor 02/16/19 02/16/19 02/16/19 05:15 05:15 05:15 WBC 44.0 H* RBC 2.23 L Hgb 7.1 L Hct 22.8 L MCV 102 H MCH RDW 16.1 H Plt Count Seg Neuts % (Manual) 82.0 H Lymphocytes % (Manual) 7.0 L Nucleated RBC % 6.0 H Seg Neutrophils # Man 38.2 H Lymphocytes # (Manual) PT 18.3 H INR 1.54 H POC ABG pH POC ABG pCO2 POC ABG pO2 ABG Hemoglobin Oxyhemoglobin Sodium Potassium 3.5 L Chloride Carbon Dioxide 21 L BUN 65 H Creatinine 3.2 H Glucose 164 H POC Glucose Hemoglobin A1c Calcium 8.3 L Total Bilirubin Ammonia Total Creatine Kinase Troponin T Total Protein Albumin Lemto-5-Yyfkpdlcd Beta Globulins Gamma Globulins Abnorm Protein Band 1 Abnorm Protein Band 2 PEP Interpretation Cholesterol LDL Cholesterol Direct HDL Cholesterol TSH Urine WBC (Auto) Urine Creatinine Urine Total Protein Immunofix Electrophor 02/16/19 02/16/19 02/16/19 05:49 12:02 16:09 WBC RBC Hgb Hct MCV MCH RDW Plt Count Seg Neuts % (Manual) Lymphocytes % (Manual) Nucleated RBC % Seg Neutrophils # Man Lymphocytes # (Manual) PT INR POC ABG pH POC ABG pCO2 POC ABG pO2 ABG Hemoglobin Oxyhemoglobin Sodium Potassium 3.1 L Chloride 96.6 L Carbon Dioxide BUN 40 H Creatinine 2.1 H Glucose 158 H POC Glucose 209 H 170 H Hemoglobin A1c Calcium 8.1 L Total Bilirubin Ammonia Total Creatine Kinase Troponin T Total Protein Albumin Tpbgw-2-Uzbdytgzw Beta Globulins Gamma Globulins Abnorm Protein Band 1 Abnorm Protein Band 2 PEP Interpretation Cholesterol LDL Cholesterol Direct HDL Cholesterol TSH Urine WBC (Auto) Urine Creatinine Urine Total Protein Immunofix Electrophor 02/16/19 02/16/19 02/17/19 17:42 23:23 05:22 WBC RBC Hgb Hct MCV MCH RDW Plt Count Seg Neuts % (Manual) Lymphocytes % (Manual) Nucleated RBC % Seg Neutrophils # Man Lymphocytes # (Manual) PT INR POC ABG pH POC ABG pCO2 POC ABG pO2 77 L ABG Hemoglobin Oxyhemoglobin Sodium Potassium Chloride Carbon Dioxide BUN Creatinine Glucose POC Glucose 157 H 155 H Hemoglobin A1c Calcium Total Bilirubin Ammonia Total Creatine Kinase Troponin T Total Protein Albumin Snxiz-3-Vklnhbieu Beta Globulins Gamma Globulins Abnorm Protein Band 1 Abnorm Protein Band 2 PEP Interpretation Cholesterol LDL Cholesterol Direct HDL Cholesterol TSH Urine WBC (Auto) Urine Creatinine Urine Total Protein Immunofix Electrophor 02/17/19 02/17/19 02/17/19 05:31 05:31 05:43 WBC 44.5 H* RBC 2.27 L Hgb 7.3 L Hct 23.3 L MCV 103 H MCH RDW 16.5 H Plt Count Seg Neuts % (Manual) Lymphocytes % (Manual) Nucleated RBC % Seg Neutrophils # Man Lymphocytes # (Manual) PT INR POC ABG pH POC ABG pCO2 POC ABG pO2 ABG Hemoglobin Oxyhemoglobin Sodium 135 L Potassium Chloride 96.3 L Carbon Dioxide 17 L D BUN 50 H Creatinine 2.4 H Glucose 125 H POC Glucose 158 H Hemoglobin A1c Calcium 8.0 L Total Bilirubin Ammonia Total Creatine Kinase Troponin T Total Protein Albumin Arzzu-5-Reewxzevc Beta Globulins Gamma Globulins Abnorm Protein Band 1 Abnorm Protein Band 2 PEP Interpretation Cholesterol LDL Cholesterol Direct HDL Cholesterol TSH Urine WBC (Auto) Urine Creatinine Urine Total Protein Immunofix Electrophor 02/17/19 02/17/19 13:54 15:48 WBC RBC Hgb Hct MCV MCH RDW Plt Count Seg Neuts % (Manual) Lymphocytes % (Manual) Nucleated RBC % Seg Neutrophils # Man Lymphocytes # (Manual) PT INR POC ABG pH POC ABG pCO2 POC ABG pO2 ABG Hemoglobin Oxyhemoglobin Sodium Potassium Chloride Carbon Dioxide BUN Creatinine Glucose POC Glucose < 40 L 108 H Hemoglobin A1c Calcium Total Bilirubin Ammonia Total Creatine Kinase Troponin T Total Protein Albumin Oyacm-9-Ptnleqqir Beta Globulins Gamma Globulins Abnorm Protein Band 1 Abnorm Protein Band 2 PEP Interpretation Cholesterol LDL Cholesterol Direct HDL Cholesterol TSH Urine WBC (Auto) Urine Creatinine Urine Total Protein Immunofix Electrophor Allied health notes reviewed: nursing
--- NOTE | 2019-02-17 16:38 | Progress Note ---
Assessment and Plan - Patient Problems (1) JESÚS (acute kidney injury) Current Visit: Yes Status: Acute Plan to address problem: Patient acute on chronic kidney disease patient required hemodialysis. (2) Acute encephalopathy Current Visit: Yes Status: Acute Plan to address problem: Acute encephalopathy patient intubated sedated unable to make needs known. (3) Acute respiratory failure Current Visit: Yes Status: Acute Plan to address problem: She remains intubated unable to wean at this particular time is followed. Pulmonology. Weaning as tolerated. (4) Necrotizing fasciitis Current Visit: Yes Status: Acute Plan to address problem: The following continue broad-spectrum antibiotics vancomycin and cefazolin. (5) Septic shock Current Visit: Yes Status: Acute Plan to address problem: septic shock is resolving weaning pressors. (6) IDDM (insulin dependent diabetes mellitus) Current Visit: Yes Status: Chronic Plan to address problem: [place] has excellent control of diabetes. Titrate accordingly. History Interval history: Hospital course unremarkable over p.m. Patient remains intubated and nonresponsive. Hospitalist Physical - Constitutional Vitals: Temp Pulse Resp BP Pulse Ox 100.4 F H 93 H 20 101/63 100 02/17/19 12:00 02/17/19 15:25 02/17/19 14:00 02/17/19 15:25 02/17/19 15:25 General appearance: Present: no acute distress, well-nourished - Neck Neck: Present: supple, normal ROM, other (intubated) - Respiratory Respiratory: bilateral: diminished, rhonchi, wheezing - Cardiovascular Rhythm: regular - Extremities Extremities: no ischemia, pulses intact, pulses symmetrical, No edema, normal temperature, normal color Extremity abnormal: edema Peripheral Pulses: within normal limits - Abdominal General gastrointestinal: soft, non-tender, non-distended, normal bowel sounds, no hepatomegaly, no splenomegaly - Integumentary Integumentary: Present: warm, rash - Psychiatric Psychiatric: appropriate mood/affect, intact judgment & insight - Neurologic Neurologic: CNII-XII intact, focal deficits, moves all extremities, other Results - Labs CBC & Chem 7: 02/17/19 05:31 02/17/19 05:31 Labs: Laboratory Last Values WBC 44.5 K/mm3 (4.5-11.0) H* 02/17/19 05:31 RBC 2.27 M/mm3 (3.65-5.03) L 02/17/19 05:31 Hgb 7.3 gm/dl (10.1-14.3) L 02/17/19 05:31 Hct 23.3 % (30.3-42.9) L 02/17/19 05:31 MCV 103 fl (79-97) H 02/17/19 05:31 MCH 32 pg (28-32) 02/17/19 05:31 MCHC 31 % (30-34) 02/17/19 05:31 RDW 16.5 % (13.2-15.2) H 02/17/19 05:31 Plt Count 157 K/mm3 (140-440) 02/17/19 05:31 Lymph % (Auto) [employer] Supervisor 02/10/19 09:28 [place] % (Auto) [employer] Supervisor 02/10/19 09:28 Eos % (Auto) [employer] Supervisor 02/10/19 09:28 Baso % (Auto) [employer] Supervisor 02/10/19 09:28 Lymph # [employer] Supervisor 02/10/19 09:28 [place] # [employer]ul[employer] Supervisor 02/10/19 09:28 Eos # [employer]ul[employer] Supervisor 02/10/19 09:28 Baso # [employer]ul[employer] Supervisor 02/10/19 09:28 Add Manual Diff Complete 02/16/19 05:15 Total Counted 100 02/16/19 05:15 Seg Neutrophils % [employer] Supervisor 02/13/19 05:12 Seg Neuts % (Manual) 82.0 % (40.0-70.0) H 02/16/19 05:15 Band Neutrophils % 4.0 % 02/16/19 05:15 Lymphocytes % (Manual) 7.0 % (13.4-35.0) L 02/16/19 05:15 Reactive Lymphs % (Man) 0 % 02/16/19 05:15 Monocytes % (Manual) 1.0 % (0.0-7.3) 02/16/19 05:15 Eosinophils % (Manual) 0 % (0.0-4.3) 02/16/19 05:15 Basophils % (Manual) 0 % (0.0-1.8) 02/16/19 05:15 Metamyelocytes % 5.0 % 02/16/19 05:15 Myelocytes % 1.0 % 02/16/19 05:15 Promyelocytes % 0 % 02/16/19 05:15 Blast Cells % 0 % 02/16/19 05:15 Nucleated RBC % 6.0 % (0.0-0.9) H 02/16/19 05:15 Seg Neutrophils # [employer] Caul[employer] Supervisor 02/10/19 09:28 Seg Neutrophils # Man 38.2 K/mm3 (1.8-7.7) H 02/16/19 05:15 Band Neutrophils # 1.9 K/mm3 02/16/19 05:15 Lymphocytes # (Manual) 3.3 K/mm3 (1.2-5.4) 02/16/19 05:15 Abs React Lymphs (Man) 0.0 K/mm3 02/16/19 05:15 Monocytes # (Manual) 0.5 K/mm3 (0.0-0.8) 02/16/19 05:15 Eosinophils # (Manual) 0.0 K/mm3 (0.0-0.4) 02/16/19 05:15 Basophils # (Manual) 0.0 K/mm3 (0.0-0.1) 02/16/19 05:15 Metamyelocytes # 2.3 K/mm3 02/16/19 05:15 Myelocytes # 0.5 K/mm3 02/16/19 05:15 Promyelocytes # 0.0 K/mm3 02/16/19 05:15 Blast Cells # 0.0 K/mm3 02/16/19 05:15 Pathologist Review 02/16/19 05:15 WBC Morphology Not Reportable 02/13/19 05:12 Hypersegmented Neuts Not Reportable 02/16/19 05:15 Hyposegmented Neuts Not Reportable 02/16/19 05:15 Hypogranular Neuts Not Reportable 02/16/19 05:15 Smudge Cells Not Reportable 02/16/19 05:15 Toxic Granulation Not Reportable 02/16/19 05:15 Toxic Vacuolation Not Reportable 02/16/19 05:15 Dohle Bodies Not Reportable 02/16/19 05:15 Pelger-Huet Anomaly Not Reportable 02/16/19 05:15 Casey Rods Not Reportable 02/16/19 05:15 Platelet Estimate Consistent w auto 02/16/19 05:15 Clumped Platelets Not Reportable 02/16/19 05:15 Plt Clumps, EDTA Not Reportable 02/16/19 05:15 Large Platelets Not Reportable 02/16/19 05:15 Giant Platelets Not Reportable 02/16/19 05:15 Platelet Satelliting Not Reportable 02/16/19 05:15 Plt Morphology Comment Not Reportable 02/16/19 05:15 RBC Morphology Not Reportable 02/16/19 05:15 Dimorphic RBCs Not Reportable 02/16/19 05:15 Polychromasia Rare 02/16/19 05:15 Hypochromasia Few 02/16/19 05:15 Poikilocytosis Few 02/16/19 05:15 Anisocytosis 1+ 02/16/19 05:15 Microcytosis Few 02/16/19 05:15 Macrocytosis Not Reportable 02/16/19 05:15 Spherocytes Not Reportable 02/16/19 05:15 Pappenheimer Bodies Not Reportable 02/16/19 05:15 Sickle Cells Not Reportable 02/16/19 05:15 Target Cells Few 02/16/19 05:15 Tear Drop Cells Rare 02/16/19 05:15 Ovalocytes Not Reportable 02/16/19 05:15 Helmet Cells Not Reportable 02/16/19 05:15 Aguayo-Bandana Bodies Not Reportable 02/16/19 05:15 Mehama Rings Not Reportable 02/16/19 05:15 Karina Cells Not Reportable 02/16/19 05:15 Bite Cells Not Reportable 02/16/19 05:15 Crenated Cell Not Reportable 02/16/19 05:15 Elliptocytes Not Reportable 02/16/19 05:15 Acanthocytes (Spur) Not Reportable 02/16/19 05:15 Rouleaux Not Reportable 02/16/19 05:15 Hemoglobin C Crystals Not Reportable 02/16/19 05:15 Schistocytes Not Reportable 02/16/19 05:15 Malaria parasites Not Reportable 02/16/19 05:15 Emanuel Bodies Not Reportable 02/16/19 05:15 Hem Pathologist Commnt Sent to pathology 02/16/19 05:15 PT 18.3 Sec. (12.2-14.9) H 02/16/19 05:15 INR 1.54 (0.87-1.13) H 02/16/19 05:15 APTT 36.0 Sec. (24.2-36.6) 02/09/19 09:16 POC ABG pH 7.352 (7.35-7.45) 02/17/19 05:22 ABG pH 7.368 pH Units (7.350-7.450) 02/14/19 18:07 POC ABG pCO2 41.0 (35-45) 02/17/19 05:22 ABG pCO2 44.1 mm Hg 02/14/19 18:07 POC ABG pO2 77 (80-105) L 02/17/19 05:22 ABG pO2 86.4 mm Hg (80.0-90.0) 02/14/19 18:07 POC ABG HCO3 22.7 (22-26 mml/L) 02/17/19 05:22 ABG HCO3 24.8 mmol/L (20.0-26.0) 02/14/19 18:07 POC ABG Total CO2 24 (23-27mmol/L) 02/17/19 05:22 POC ABG O2 Sat 95 02/17/19 05:22 ABG O2 Saturation 96.7 % (95.0-99.0) 02/14/19 18:07 ABG O2 Content 10.7 (0.0-44) 02/14/19 18:07 POC ABG Base Excess -3 ((-2) - (+3)mmol/L) 02/17/19 05:22 ABG Base Excess -0.5 mmol/L (-2.0-3.0) 02/14/19 18:07 ABG Hemoglobin 8.0 gm/dl (12.0-16.0) L 02/14/19 18:07 ABG Carboxyhemoglobin 2.6 % (0.0-5.0) 02/14/19 18:07 ABG Methemoglobin 0.3 % (0.0-1.5) 02/14/19 18:07 Oxyhemoglobin 93.9 % (95.0-99.0) L 02/14/19 18:07 FiO2 30 % 02/17/19 05:22 Sodium 135 mmol/L (137-145) L 02/17/19 05:31 Potassium 3.7 mmol/L (3.6-5.0) 02/17/19 05:31 Chloride 96.3 mmol/L (98-107) L 02/17/19 05:31 Carbon Dioxide 17 mmol/L (22-30) L D 02/17/19 05:31 Anion Gap 25 mmol/L 02/17/19 05:31 BUN 50 mg/dL (7-17) H 02/17/19 05:31 Creatinine 2.4 mg/dL (0.7-1.2) H 02/17/19 05:31 Estimated GFR 24 ml/min 02/17/19 05:31 BUN/Creatinine Ratio 21 % 02/17/19 05:31 Glucose 125 mg/dL (65-100) H 02/17/19 05:31 POC Glucose 108 (70-105) H 02/17/19 15:48 Hemoglobin A1c 8.5 % (4-6) H 02/09/19 23:24 Lactic Acid 1.90 mmol/L (0.7-2.0) 02/11/19 16:15 Calcium 8.0 mg/dL (8.4-10.2) L 02/17/19 05:31 Phosphorus 4.10 mg/dL (2.5-4.5) 02/09/19 12:47 Total Bilirubin 3.10 mg/dL (0.1-1.2) H 02/10/19 06:39 AST 39 units/L (5-40) 02/10/19 06:39 ALT 12 units/L (7-56) 02/10/19 06:39 Alkaline Phosphatase 112 units/L (35-129) 02/10/19 06:39 Ammonia 61.0 umol/L (25-60) H 02/09/19 09:16 Total Creatine Kinase 264 units/L (30-135) H 02/09/19 09:16 CK-MB (CK-2) 2.1 ng/mL (0.0-4.0) 02/09/19 09:16 CK-MB (CK-2) Rel Index 0.7 (0-4) 02/09/19 09:16 Troponin T 0.073 ng/mL (0.00-0.029) H 02/09/19 09:16 Serum Total Protein 7.8 g/dL (6.1-8.1) 02/09/19 19:03 Total Protein 8.3 g/dL (6.3-8.2) H 02/10/19 06:39 Albumin 2.4 g/dL (3.9-5) L 02/10/19 06:39 Albumin/Globulin Ratio 0.4 % 02/10/19 06:39 Pxexi-6-Dsenkdgnl 0.5 g/dL (0.2-0.3) H 02/09/19 19:03 Dbbez-6-Xaegbubzi 0.7 g/dL (0.5-0.9) 02/09/19 19:03 Beta Globulins 2.8 g/dL (0.2-0.5) H 02/09/19 19:03 Gamma Globulins 0.7 g/dL (0.8-1.7) L 02/09/19 19:03 Abnorm Protein Band 1 2.7 g/dL H 02/09/19 19:03 Abnorm Protein Band 2 0.3 g/dL H 02/09/19 19:03 PEP Interpretation see below H 02/09/19 19:03 Triglycerides 65 mg/dL (2-149) 02/09/19 09:16 Cholesterol 47 mg/dL (50-199) L 02/09/19 09:16 LDL Cholesterol Direct 13 mg/dL (50-130) L 02/09/19 09:16 HDL Cholesterol 27 mg/dL (40-59) L 02/09/19 09:16 Cholesterol/HDL Ratio 1.74 % 02/09/19 09:16 Procalcitonin 11.74 ng/mL (<0.15) 02/11/19 16:15 TSH 5.570 mlU/mL (0.270-4.200) H 02/09/19 09:16 Free T4 0.85 ng/dL (0.76-1.46) 02/09/19 09:16 Urine Color Shamika (Yellow) 02/09/19 14:30 Urine Turbidity Cloudy (Clear) 02/09/19 14:30 Urine pH 5.0 (5.0-7.0) 02/09/19 14:30 Ur Specific [place] 1.015 (1.003-1.030) 02/09/19 14:30 Urine Protein 30 mg/dl mg/dL (Negative) 02/09/19 14:30 Urine Glucose (UA) Neg mg/dL (Negative) 02/09/19 14:30 Urine Ketones Neg mg/dL (Negative) 02/09/19 14:30 Urine Blood Sm (Negative) 02/09/19 14:30 Urine Nitrite Neg (Negative) 02/09/19 14:30 Urine Bilirubin Neg (Negative) 02/09/19 14:30 Urine Urobilinogen < 2.0 mg/dL (<2.0) 02/09/19 14:30 Ur Leukocyte Esterase Mod (Negative) 02/09/19 14:30 Urine WBC (Auto) 32.0 /HPF (0.0-6.0) H 02/09/19 14:30 Urine RBC (Auto) 29.0 /HPF (0.0-6.0) 02/09/19 14:30 U Epithel Cells (Auto) 3.0 /HPF (0-13.0) 02/09/19 14:30 Urine Bacteria (Auto) 3+ /HPF (Negative) 02/09/19 14:30 Urine WBC Clumps 2+ /HPF 02/09/19 14:30 Urine Mucus Few /HPF 02/09/19 14:30 Urine Creatinine 162.4 mg/dL (0.1-20.0) H 02/09/19 14:30 Protein/Creatinin Ratio 0.30 02/09/19 14:30 Urine Sodium 38 mmol/L 02/09/19 14:30 Urine Total Protein 49 mg/dL (5-11.8) H 02/09/19 14:30 Nasal Screen MRSA (PCR) Negative (Negative) 02/12/19 Unknown Random Vancomycin 11.9 ug/mL (0-40.0) 02/17/19 05:31 Urine Opiates Screen Presumptive negative 02/09/19 14:30 Urine Methadone Screen Presumptive negative 02/09/19 14:30 Ur Barbiturates Screen Presumptive negative 02/09/19 14:30 Ur Phencyclidine Scrn Presumptive negative 02/09/19 14:30 Ur Amphetamines Screen Presumptive negative 02/09/19 14:30 U Benzodiazepines Scrn Presumptive negative 02/09/19 14:30 Urine Cocaine Screen Presumptive negative 02/09/19 14:30 U Marijuana (THC) Screen Presumptive negative 02/09/19 14:30 Drugs of Abuse Note Disclamer 02/09/19 14:30 Plasma/Serum Alcohol < 0.01 % (0-0.07) 02/09/19 09:16 Immunofix Electrophor see below H 02/09/19 19:03 Proteinase 3 (PR3) Ab <1.0 AI (<1.0) 02/09/19 12:47 Myeloperoxidase Ab <1.0 AI (<1.0) 02/09/19 12:47 Complement C3 123 mg/dL (83-193) 02/09/19 12:47 Complement C4 37 mg/dL (15-57) 02/09/19 12:47 Hepatitis A IgM Ab Non-reactive (NonReactive) 02/09/19 12:47 Hep Bs Antigen Non-reactive (Negative) 02/09/19 12:47 Hep B Core IgM Ab Non-reactive (NonReactive) 02/09/19 12:47 Hepatitis C Antibody Non-reactive (NonReactive) 02/09/19 12:47 Influenza A (Rapid) Negative (Negative) 02/12/19 Unknown Influenza A (RT-PCR) Negative (Negative) 02/12/19 Unknown Influenza B (Rapid) Negative (Negative) 02/12/19 Unknown Influenza B (RT-PCR) Negative (Negative) 02/12/19 Unknown Urine Legionella Ag Not detected (Not Detected) 02/12/19 15:23 - Imaging and Cardiology Abdominal x-ray: image reviewed CT scan - abdomen: image reviewed Active Medications - Current Medications Current Medications: Generic Name Dose Route Start Last Admin Trade Name Freq PRN Reason Stop Dose Admin Acetaminophen 650 mg 02/09/19 22:59 02/17/19 10:00 Tylenol PO 650 mg Q4H PRN Administration Pain MILD(1-3)/Fever >100.5/ARREDONDO Albumin Human 25 gm 02/11/19 12:02 Alburx 25% (Albumin) IV TREVA PRN Hypotension Albuterol 1.25 mg 02/10/19 01:36 Proventil IH TIDRT PRN Shortness Of Breath Albuterol/Ipratropium 1 ampul 02/10/19 14:00 02/17/19 15:19 Duoneb *Not For Prn Use* IH 1 ampul Q6HRT YISEL Administration Lipase/Protease/Amylase 1 each 02/17/19 07:58 Pancregopi Mcbride 10,500 Unit FEEDTUBE PRN PRN For Clogged Feeding Tube Dextrose 50 ml 02/13/19 18:56 02/17/19 15:11 D50w (25gm) Syringe IV 50 ml Q30MIN PRN Administration Hypoglycemia Protocol Famotidine 20 mg 02/16/19 10:00 02/17/19 09:02 Pepcid IV 20 mg DAILY YISEL Administration Heparin Sodium (Porcine) 5,000 unit 02/10/19 22:00 02/17/19 09:02 Heparin SUB-Q 5,000 unit Q12HR YISEL Administration Hydromorphone HCl 0.25 mg 02/09/19 22:59 Dilaudid IV Q3H PRN Pain, Moderate (4-6) Hydrophilic Ointment 1 applic 02/15/19 18:50 Vaseline Lip Therapy TP Q2HR PRN Dry Lips Sodium Chloride 100 mls @ 999 mls/hr 02/11/19 12:02 Nacl 0.9% IV TREVA PRN Hypotension MEROPENEM/NS 1 GRAM/100 ML 1 gram in 100 mls @ 100 mls/hr 02/15/19 16:00 02/17/19 09:03 Merrem/Ns 1 Gram/100 Ml IV 100 mls/hr Q24HR YISEL Administration Protocol Clindamycin HCl 900 mg in 50 mls @ 100 mls/hr 02/15/19 17:00 02/17/19 14:26 Cleocin 900 Mg/50 Ml IV 100 mls/hr Q8HR YISEL Administration Protocol Fentanyl Citrate 2,000 mcg in 100 mls @ 8.4 mls/hr 02/15/19 19:00 02/17/19 16:16 Fentanyl Drip Premix IV 0.5 mcg/kg/hr TITR YISEL 4.2 mls/hr Titration Protocol 1 MCG/KG/HR Propofol 1,000 mg in 100 mls @ 5.04 mls/hr 02/15/19 19:00 02/16/19 07:29 Diprivan 10 Mg/Ml IV 0 mcg/kg/min TITR YISEL 0 mls/hr Titration Protocol 5 MCG/KG/MIN Norepinephrine 8 mg/ Sodium 250 mls @ 3.75 mls/hr 02/15/19 23:45 02/17/19 14:43 Chloride IV 30 mcg/min TITR YISEL 56.25 mls/hr Administration Protocol 2 MCG/MIN Fluconazole 200 mg in 100 mls @ 100 mls/hr 02/16/19 10:00 02/17/19 09:03 Diflucan IV 100 mls/hr Q24HR YISEL Administration Protocol Vasopressin 20 unit/ Sodium 101 mls @ 9.09 mls/hr 02/16/19 22:00 02/17/19 11:34 Chloride IV 0.03 units/min TITR YISEL 9.09 mls/hr Administration Protocol 0.03 UNITS/MIN Phenylephrine HCl 100 mg/ 100 mls @ 3 mls/hr 02/17/19 07:45 02/17/19 14:46 Sodium Chloride IV 90 mcg/min TITR YISEL 5.4 mls/hr Titration Protocol 50 MCG/MIN Insulin Glargine 10 units 02/16/19 11:00 02/17/19 09:02 Lantus SUB-Q Not Given QAMDIAB [facility] Insulin Human Lispro 0 unit 02/13/19 19:00 02/17/19 16:21 Humalog SUB-Q Not Given Q6HR [facility] Protocol Multi-Ingred Cream/Lotion/Oil/Oint 1 applic 02/15/19 18:50 02/15/19 22:08 Artificial Tears Ophth Oint OU 1 applic Q4HR PRN Administration Dry Eye(s) Ondansetron HCl 4 mg 02/09/19 22:59 Zofran IV Q8H PRN Nausea And Vomiting Oxycodone/Acetaminophen 1 tab 02/09/19 22:59 Percocet 5/325 PO Q6H PRN Pain, Moderate (4-6) Simple Syrup 15 ml 02/17/19 07:58 Simple Syrup FEEDTUBE PRN PRN Hypoglycemia Simple Syrup 30 ml 02/17/19 07:58 02/17/19 14:30 Simple Syrup FEEDTUBE 30 ml PRN PRN Administration Hypoglycemia Sodium Bicarbonate 325 mg 02/17/19 07:58 Sodium Bicarbonate FEEDTUBE PRN PRN For Clogged Feeding Tube Sodium Chloride 10 ml 02/10/19 10:00 02/17/19 09:04 Sodium Chloride Flush Syringe 10 Ml IV 10 ml BID YISEL Administration Sodium Chloride 10 ml 02/09/19 22:59 02/10/19 06:44 Sodium Chloride Flush Syringe 10 Ml IV 10 ml PRN PRN Administration LINE FLUSH Sodium Hypochlorite 1 applic 02/15/19 16:06 02/17/19 13:05 Dakin's Half Strength TP 1 applicatio Q12H PRN Administration Wound Care Nutrition/Malnutrition Assess - Dietary Evaluation Nutrition/Malnutrition Findings: Nutrition Notes Start: 02/14/19 11:05 Freq: Status: Active Protocol: Document 02/17/19 08:02 JACOB (Rec: 02/17/19 08:06 JACOB [id number]) Nutrition Notes Need for Assessment generated from: MD Order Initial or Follow up Assessment Current Diagnosis Acute Kidney Injury,Diabetes, Sepsis,Hypertension,Heart Failure,Respiratory Failure Other Pertinent Diagnosis HD, asthma Current Diet NPO Labs/Tests Na: 135 Cr: 2.4 BUN: 50 A1c: 8.5 Pertinent Medications Duoneb Norepinephrine Height 5 ft 4 in Weight 168 kg [place] Body Weight (kg) 54.54 BMI 63.6 Weight Status Morbidly Obese Subjective/Other Information MD comsult to write/manage TF Burn Absent Trauma Absent Current % PO Negligible Minimum of two criteria No physical signs of malnutrition #1 Nutrition Diagnosis Inadequate oral intake Etiology Vent As Evidenced by Signs and Symptoms NPO status Diagnosis Progress(for reassessment Worsened documentation) Is patient on ventilator? Yes Is Patient Ambulatory and/or Out of Bed No REE-([place]-confined to bed) 2638.512 Kcal/Kg value to use for calculation 11 Approximate Energy Requirements Using 1848 kcal/Kg Calculation Used for Recommendations Kcal/kg Additional Notes PRO: 109-125g/day (2.0-2.3g/kg IBW 54.54kg) Fluid: 1ml/kcal Nutrition Intervention Change Diet Order: TF Nutrition Support: Nepro at 45ml/hr Flush 200ml q4hr Kcal 1,944 Protein (gm) 87 Fluid (mL) 785 Goal #1 TF initiation/tolerance Anticipated Discharge Needs: unknown at this time Follow-Up By: 02/19/19 Additional Comments F/u for TF initiation/ tolerance
[2019-02-17] MEDS ORDERED: SODIUM CHLORIDE 0.9% 500 ML 500 ML IV ONE (20:17)
[2019-02-17] MEDS: SODIUM BICARBONATE 150 MEQ in DEXTROSE 5% IN WATER 1,000 ML IV SCH (21:24)
[2019-02-17] MEDS: SIMPLE SYRUP 15 ML FEEDTUBE PRN ×2 (23:19→23:36)
[2019-02-18] MEDS: DEXTROSE 50% IN WATER (25GM) 50 ML SYRINGE IV PRN ×2 (01:03→14:58)
[2019-02-18] MEDS: IPRATROPIUM/ALBUTEROL SULFATE 3 ML AMPUL.NEB IH SCH ×3 (02:00→13:45)
[2019-02-18] MEDS: INSULIN LISPRO 100 UNIT/ML SUB-Q SCH ×4 (02:39→18:46)
--- NOTE | 2019-02-18 03:10 | XRay Report ---
CHEST 1 VIEW, 02/18/2019 2:21 AM CLINICAL INFORMATION/INDICATION: Respiratory failure COMPARISON: Chest radiograph, 02/17/2019 at 1:53 AM FINDINGS: SUPPORT DEVICES: Endotracheal tube and esophagogastric tube remain in stable position. HEART: The cardiac silhouette remains enlarged. LUNGS/PLEURA: Bilateral interstitial edema is again noted and appears similar to the previous study. No pneumothorax is identified. ADDITIONAL FINDINGS: No additional acute findings. IMPRESSION: 1. Stable appearance of bilateral interstitial edema. Signer Name: Lina Barton MD Signed: 02/18/2019 3:05 AM Workstation Name: [id number]
[2019-02-18] MEDS ORDERED: SODIUM BICARB 8.4% 50 MEQ/50 ML SYRINGE IV STA (04:06)
[2019-02-18] MEDS: NORepinephrine 8 MG in SODIUM CHLORIDE 0.9% 250ML 242 ML IV SCH ×4 (04:34→17:40)
[2019-02-18] MEDS: SIMPLE SYRUP 15 ML FEEDTUBE PRN (05:52)
[2019-02-18 06:18] LABS: Mean Corpuscular HGB Conc 27 % (30-34); Red Blood Count 2.08 M/mm3 (3.65-5.03); Red Cell Distribution Width 18.1 % (13.2-15.2)
[2019-02-18 06:20] LABS: Hematocrit 24.4 % (30.3-42.9); Hemoglobin 6.6 gm/dl (10.1-14.3); Mean Corpuscular Volume 117 fl (79-97); Platelet Count 76 K/mm3 (140-440)
[2019-02-18] MEDS ORDERED: DEXTROSE 50% IN WATER (25GM) 50 ML VIAL IV ONE (06:25)
[2019-02-18 06:27] LABS: Calcium 7.5 mg/dL (8.4-10.2)
[2019-02-18] MEDS: SODIUM BICARBONATE 150 MEQ in DEXTROSE 5% IN WATER 1,000 ML IV SCH ×2 (06:31→16:19)
[2019-02-18] MEDS: SODIUM HYPOCHLORITE, DAKIN'S 1/2 STRENGTH (0.25%) 473 ML TOPICAL SOLN TP PRN (07:00)
[2019-02-18] MEDS: PHENYLEPHRINE 100 MG in SODIUM CHLORIDE 0.9% 90 ML IV SCH ×3 (07:09→17:50)
[2019-02-18] MEDS ORDERED: SODIUM BICARB 8.4% 50 MEQ/50 ML SYRINGE IV ONE ×6 (08:32→18:58)
[2019-02-18] MEDS: INSULIN GLARGINE 100 UNITS/ML SUB-Q SCH (09:29)
[2019-02-18] MEDS: FAMOTIDINE 20 MG/2 ML INJ IV SCH (09:30)
[2019-02-18] MEDS: FLUCONAZOLE 200 MG 200 MG/100 ML BAG IV SCH (09:30)
[2019-02-18] MEDS: VASOPRESSIN 20 UNIT in SODIUM CHLORIDE 0.9% 100 ML IV SCH (10:05)
[2019-02-18] MEDS: HEPARIN 5,000 UNIT/1 ML VIAL SUB-Q SCH (10:55)
[2019-02-18] MEDS: MEROPENEM/NS 1 GRAM/100 ML 1 GRAM/100 ML BAG IV SCH (10:59)
--- NOTE | 2019-02-18 11:31 | Progress Note ---
Assessment and Plan Cultures: Blood culture 02/10/2019 no growth so far Urine culture 02/09/2019 negative. Sputum culture 02/15/2019 no growth OR culture 02/15/2019 Assessment: 68 y/o female with history of morbid obesity, asthma/COPD, CHF admitted from home on 02/09/2019 due to one week of altered mental status and weakness, she was treated for a "lung infection" at home started 2 days ago: 1) Severe sepsis with septic shock: with refractory septic shock with MODS; worsening leukocytosis now 45K, lactate 21, Hg down 6.6, plat 76; etiology likely necrotizing fascitis of left thigh +/- JESÚS now on HD. 2) Left thigh necrotizing fascitis: likely polymicrobial anaerobes in a diabetic patient. s/p OR debridement on 02/15. Discussed with Dr Clark today. OR culture with normal skin kaia. She evaluated surg wounds with no signs of worsening infection. 3) UTI: initial Ua with 32 wbc and moderate LE. Urine cx no growth 4) AMS: likely due to sepsis/hypoglycemia/high ammonia. Improving 5) JESÚS s/p urgent HD - improving 6) severe anemia/thrombocytopenia Recs: discuss with family end-of-life planning, she is likely to go into cardiac arrest due to worsening septic shock f/u OR cultures continue vancomycin, meropenem and clindamycin renally adjusted D4 continue fluconazole D5 Grim prognosis/ Discussed with Dr May and Dr Eduardo murrell tomorrow Will follow. Becca Jimenez MD Infectious Diseases Director Of Institutional Research [facility] ([facility]) M [phone] O [phone] Subjective Date of service: 02/18/19 Principal diagnosis: Ac. hypercapnic resp. failure; Severe Sepsis with Shock; JESÚS on CKD; AUDI Interval history: Remains intubated, persistent fever, now on 3 pressors. Objective - Exam Narrative Exam: Constitutional: sedated intubated morbidly obese Head, Ears, Nose: Normocephalic, atraumatic. External ears, nose normal Eyes: Conjunctivae/corneas clear. No icterus. No ptosis. Neck: Supple, no meningeal signs Oral: limited Cardiovascular: S1, S2 normal. Respiratory: distant BS GI: Soft, +massive pannus difficult exam Musculoskeletal:+ left inner surgical wound. Skin: No rash or abscess Hem/Lymphatic: No palpable cervical or supraclavicular nodes. No lymphangitis Psych: no agitated Neurological: alert follows commands +right fem cath - Constitutional Vitals: Vital Signs Temp Pulse Resp BP Pulse Ox 99.7 F H 86 30 H 105/40 99 02/18/19 08:00 02/18/19 10:31 02/18/19 10:15 02/18/19 10:31 02/18/19 10:31 Temperature -Last 24 Hours Temperature 99.7 F Temperature 99.8 F Temperature 100.0 F Temperature 101.5 F Temperature 102.6 F Temperature 102.9 F Temperature 100.4 F Temperature 100.4 F - Labs CBC & Chem 7: 02/18/19 05:15 02/18/19 05:15 Labs: Abnormal lab results 02/17/19 02/17/19 02/17/19 Range/Units 05:22 13:54 14:37 WBC (4.5-11.0) K/mm3 RBC (3.65-5.03) M/mm3 Hgb (10.1-14.3) gm/dl Hct (30.3-42.9) % MCV (79-97) fl MCHC (30-34) % RDW (13.2-15.2) % Plt Count (140-440) K/mm3 POC ABG pH (7.35-7.45) POC ABG pCO2 (35-45) POC ABG pO2 77 L (80-105) Potassium (3.6-5.0) mmol/L Chloride (98-107) mmol/L Carbon Dioxide (22-30) mmol/L BUN (7-17) mg/dL Creatinine (0.7-1.2) mg/dL POC Glucose < 40 L < 40 L (70-105) Lactic Acid (0.7-2.0) mmol/L Calcium (8.4-10.2) mg/dL 02/17/19 02/17/19 02/17/19 Range/Units 15:15 15:48 18:52 WBC (4.5-11.0) K/mm3 RBC (3.65-5.03) M/mm3 Hgb (10.1-14.3) gm/dl Hct (30.3-42.9) % MCV (79-97) fl MCHC (30-34) % RDW (13.2-15.2) % Plt Count (140-440) K/mm3 POC ABG pH (7.35-7.45) POC ABG pCO2 (35-45) POC ABG pO2 (80-105) Potassium (3.6-5.0) mmol/L Chloride (98-107) mmol/L Carbon Dioxide (22-30) mmol/L BUN (7-17) mg/dL Creatinine (0.7-1.2) mg/dL POC Glucose 63 L 108 H < 40 L (70-105) Lactic Acid (0.7-2.0) mmol/L Calcium (8.4-10.2) mg/dL 02/17/19 02/17/19 02/17/19 Range/Units 19:12 22:03 22:08 WBC (4.5-11.0) K/mm3 RBC (3.65-5.03) M/mm3 Hgb (10.1-14.3) gm/dl Hct (30.3-42.9) % MCV (79-97) fl MCHC (30-34) % RDW (13.2-15.2) % Plt Count (140-440) K/mm3 POC ABG pH (7.35-7.45) POC ABG pCO2 (35-45) POC ABG pO2 (80-105) Potassium (3.6-5.0) mmol/L Chloride (98-107) mmol/L Carbon Dioxide (22-30) mmol/L BUN (7-17) mg/dL Creatinine (0.7-1.2) mg/dL POC Glucose < 40 L < 40 L (70-105) Lactic Acid 13.50 H* (0.7-2.0) mmol/L Calcium (8.4-10.2) mg/dL 02/17/19 02/17/19 02/18/19 Range/Units 23:26 23:45 00:04 WBC (4.5-11.0) K/mm3 RBC (3.65-5.03) M/mm3 Hgb (10.1-14.3) gm/dl Hct (30.3-42.9) % MCV (79-97) fl MCHC (30-34) % RDW (13.2-15.2) % Plt Count (140-440) K/mm3 POC ABG pH (7.35-7.45) POC ABG pCO2 (35-45) POC ABG pO2 (80-105) Potassium (3.6-5.0) mmol/L Chloride (98-107) mmol/L Carbon Dioxide (22-30) mmol/L BUN (7-17) mg/dL Creatinine (0.7-1.2) mg/dL POC Glucose 65 L 65 L 68 L (70-105) Lactic Acid (0.7-2.0) mmol/L Calcium (8.4-10.2) mg/dL 02/18/19 02/18/19 02/18/19 Range/Units 01:03 01:46 03:43 WBC (4.5-11.0) K/mm3 RBC (3.65-5.03) M/mm3 Hgb (10.1-14.3) gm/dl Hct (30.3-42.9) % MCV (79-97) fl MCHC (30-34) % RDW (13.2-15.2) % Plt Count (140-440) K/mm3 POC ABG pH (7.35-7.45) POC ABG pCO2 (35-45) POC ABG pO2 (80-105) Potassium (3.6-5.0) mmol/L Chloride (98-107) mmol/L Carbon Dioxide (22-30) mmol/L BUN (7-17) mg/dL Creatinine (0.7-1.2) mg/dL POC Glucose 49 L 109 H 122 H (70-105) Lactic Acid (0.7-2.0) mmol/L Calcium (8.4-10.2) mg/dL 02/18/19 02/18/19 02/18/19 Range/Units 03:55 05:15 05:15 WBC 45.7 H* (4.5-11.0) K/mm3 RBC 2.08 L (3.65-5.03) M/mm3 Hgb 6.6 L (10.1-14.3) gm/dl Hct 24.4 L (30.3-42.9) % MCV 117 H (79-97) fl MCHC 27 L (30-34) % RDW 18.1 H (13.2-15.2) % Plt Count 76 L (140-440) K/mm3 POC ABG pH 6.899 L (7.35-7.45) POC ABG pCO2 (35-45) POC ABG pO2 (80-105) Potassium 5.2 H D (3.6-5.0) mmol/L Chloride 93.5 L (98-107) mmol/L Carbon Dioxide 7 L* D (22-30) mmol/L BUN 55 H (7-17) mg/dL Creatinine 3.3 H (0.7-1.2) mg/dL POC Glucose (70-105) Lactic Acid (0.7-2.0) mmol/L Calcium 7.5 L (8.4-10.2) mg/dL 02/18/19 02/18/19 02/18/19 Range/Units 05:15 06:26 07:30 WBC (4.5-11.0) K/mm3 RBC (3.65-5.03) M/mm3 Hgb (10.1-14.3) gm/dl Hct (30.3-42.9) % MCV (79-97) fl MCHC (30-34) % RDW (13.2-15.2) % Plt Count (140-440) K/mm3 POC ABG pH 6.931 L (7.35-7.45) POC ABG pCO2 27.1 L (35-45) POC ABG pO2 386 H (80-105) Potassium (3.6-5.0) mmol/L Chloride (98-107) mmol/L Carbon Dioxide (22-30) mmol/L BUN (7-17) mg/dL Creatinine (0.7-1.2) mg/dL POC Glucose 56 L (70-105) Lactic Acid 21.60 H* (0.7-2.0) mmol/L Calcium (8.4-10.2) mg/dL 02/18/19 02/18/19 Range/Units 07:47 09:25 WBC (4.5-11.0) K/mm3 RBC (3.65-5.03) M/mm3 Hgb (10.1-14.3) gm/dl Hct (30.3-42.9) % MCV (79-97) fl MCHC (30-34) % RDW (13.2-15.2) % Plt Count (140-440) K/mm3 POC ABG pH (7.35-7.45) POC ABG pCO2 (35-45) POC ABG pO2 (80-105) Potassium (3.6-5.0) mmol/L Chloride (98-107) mmol/L Carbon Dioxide (22-30) mmol/L BUN (7-17) mg/dL Creatinine (0.7-1.2) mg/dL POC Glucose 140 H 136 H (70-105) Lactic Acid (0.7-2.0) mmol/L Calcium (8.4-10.2) mg/dL
[2019-02-18] MEDS ORDERED: DOPamine/D5W 800 MG/250 ML 800 MG/250 ML BAG IV SCH (13:00)
--- NOTE | 2019-02-18 13:38 | Progress Note ---
Assessment and Plan Impression * Patient most likely has acute on chronic renal failure. Her serum creatinine was 1.6 back in 2017. * ATN * Hypotension * sepsis * Respiratory failure * Morbid obesity * Hyperkalemia * Metabolic acidosis * Hypoglycemia * Anemia Recommendations * Status post Vas-Cath placement on 02/10/2019 and initiation of dialysis * needs hd today for acidosis * hd as tolerated, continue to monitor for renal recovery * keep MAP >65, vasopressors prn * add bicarb gtt today * She may have developed ATN on top for chronic kidney disease. * Renal ultrasound is normal. No obstruction. * Follow up results of vasculitis workup * Monitor fluid status and electrolytes closely * Avoid nephrotoxins * Discussed with patient's nurse as well as professor of visual arts Subjective Date of service: 02/18/19 Principal diagnosis: Ac. hypercapnic resp. failure; Severe Sepsis with Shock; JESÚS on CKD; AUDI Interval history: resting in bed today Objective - Exam Narrative Exam: General appearance: well-developed, well-nourished EENT: ATNC, PERRL Neck: no JVD Respiratory: Present: Clear to Ascultation Cardiology: regular, S1S2 Gastrointestinal: normal, normoactive bowel sounds Integumentary: no rash Neurologic: alert and oriented x3, CN 3-12 intact Psychiatric: mood/affect appropriate - Vital Signs Vital signs: Vital Signs - 12hr 02/18/19 02/18/19 02/18/19 01:45 02:00 02:15 Temperature Pulse Rate 86 87 87 Pulse Rate [ 87 Bilateral Throughout] Pulse Rate [ From Monitor] Respiratory 15 14 14 Rate Respiratory 15 Rate [Bilateral Throughout] Blood Pressure 97/52 99/54 93/52 O2 Sat by Pulse 91 82 L 90 Oximetry 02/18/19 02/18/19 02/18/19 02:30 02:45 03:00 Temperature Pulse Rate 87 87 86 Pulse Rate [ Bilateral Throughout] Pulse Rate [ From Monitor] Respiratory 15 15 14 Rate Respiratory Rate [Bilateral Throughout] Blood Pressure 83/39 93/47 82/47 O2 Sat by Pulse 100 75 L Oximetry 02/18/19 02/18/19 02/18/19 03:15 03:31 03:45 Temperature Pulse Rate 86 86 88 Pulse Rate [ Bilateral Throughout] Pulse Rate [ From Monitor] Respiratory 14 15 14 Rate Respiratory Rate [Bilateral Throughout] Blood Pressure 81/38 89/47 95/62 O2 Sat by Pulse 95 92 90 Oximetry 02/18/19 02/18/19 02/18/19 04:00 04:01 04:13 Temperature 99.8 F H Pulse Rate 88 88 88 Pulse Rate [ Bilateral Throughout] Pulse Rate [ 88 From Monitor] Respiratory 15 15 Rate Respiratory Rate [Bilateral Throughout] Blood Pressure 100/46 95/62 O2 Sat by Pulse 85 85 89 Oximetry 02/18/19 02/18/19 02/18/19 04:15 04:30 04:45 Temperature Pulse Rate 89 90 87 Pulse Rate [ Bilateral Throughout] Pulse Rate [ From Monitor] Respiratory 30 H 30 H 30 H Rate Respiratory Rate [Bilateral Throughout] Blood Pressure 99/52 94/60 102/45 O2 Sat by Pulse 93 100 96 Oximetry 02/18/19 02/18/19 02/18/19 05:01 05:15 05:30 Temperature Pulse Rate 87 87 87 Pulse Rate [ Bilateral Throughout] Pulse Rate [ From Monitor] Respiratory 30 H 30 H 30 H Rate Respiratory Rate [Bilateral Throughout] Blood Pressure 102/45 100/44 94/46 O2 Sat by Pulse 96 93 92 Oximetry 02/18/19 02/18/19 02/18/19 05:45 06:01 06:15 Temperature Pulse Rate 88 87 85 Pulse Rate [ Bilateral Throughout] Pulse Rate [ From Monitor] Respiratory 30 H 30 H 31 H Rate Respiratory Rate [Bilateral Throughout] Blood Pressure 100/44 107/39 95/49 O2 Sat by Pulse 93 90 Oximetry 02/18/19 02/18/19 02/18/19 06:30 06:45 07:01 Temperature Pulse Rate 85 85 86 Pulse Rate [ Bilateral Throughout] Pulse Rate [ From Monitor] Respiratory 31 H 21 30 H Rate Respiratory Rate [Bilateral Throughout] Blood Pressure 86/47 88/54 85/37 O2 Sat by Pulse 90 87 82 L Oximetry 02/18/19 02/18/19 02/18/19 07:15 07:25 07:30 Temperature Pulse Rate 87 90 87 Pulse Rate [ Bilateral Throughout] Pulse Rate [ From Monitor] Respiratory 30 H 27 H Rate Respiratory Rate [Bilateral Throughout] Blood Pressure 96/56 92/60 95/51 O2 Sat by Pulse 81 L 90 89 Oximetry 02/18/19 02/18/19 02/18/19 07:45 07:53 08:00 Temperature 99.7 F H Pulse Rate 87 Pulse Rate [ 90 Bilateral Throughout] Pulse Rate [ 87 From Monitor] Respiratory 30 H 30 H Rate Respiratory 30 H Rate [Bilateral Throughout] Blood Pressure 100/52 O2 Sat by Pulse 89 95 Oximetry 02/18/19 02/18/19 02/18/19 08:01 08:15 08:30 Temperature Pulse Rate 88 218 H 88 Pulse Rate [ Bilateral Throughout] Pulse Rate [ From Monitor] Respiratory 31 H 23 26 H Rate Respiratory Rate [Bilateral Throughout] Blood Pressure 120/13 100/52 108/60 O2 Sat by Pulse 90 100 100 Oximetry 02/18/19 02/18/19 02/18/19 08:45 09:00 09:15 Temperature Pulse Rate 86 87 86 Pulse Rate [ Bilateral Throughout] Pulse Rate [ From Monitor] Respiratory 18 29 H 30 H Rate Respiratory Rate [Bilateral Throughout] Blood Pressure 80/59 80/59 80/59 O2 Sat by Pulse 84 Oximetry 02/18/19 02/18/19 02/18/19 09:30 09:45 10:01 Temperature Pulse Rate 86 91 H 85 Pulse Rate [ Bilateral Throughout] Pulse Rate [ From Monitor] Respiratory 30 H 30 H 30 H Rate Respiratory Rate [Bilateral Throughout] Blood Pressure 94/23 94/23 91/16 O2 Sat by Pulse 100 98 100 Oximetry 02/18/19 02/18/19 02/18/19 10:15 10:31 13:28 Temperature Pulse Rate 85 86 90 Pulse Rate [ Bilateral Throughout] Pulse Rate [ From Monitor] Respiratory 30 H Rate Respiratory Rate [Bilateral Throughout] Blood Pressure 91/16 105/40 O2 Sat by Pulse 98 99 98 Oximetry - Lab 02/18/19 05:15 02/18/19 05:15 Most recent lab results ABG pH 7.368 pH Units (7.350-7.450) 02/14/19 18:07 ABG pCO2 44.1 mm Hg 02/14/19 18:07 ABG pO2 86.4 mm Hg (80.0-90.0) 02/14/19 18:07 ABG HCO3 24.8 mmol/L (20.0-26.0) 02/14/19 18:07 ABG O2 Saturation 96.7 % (95.0-99.0) 02/14/19 18:07 Calcium 7.5 mg/dL (8.4-10.2) L 02/18/19 05:15 Phosphorus 4.10 mg/dL (2.5-4.5) 02/09/19 12:47 Urine Creatinine 162.4 mg/dL (0.1-20.0) H 02/09/19 14:30 Urine Sodium 38 mmol/L 02/09/19 14:30 Urine Total Protein 49 mg/dL (5-11.8) H 02/09/19 14:30 Medications & Allergies - Medications Allergies/Adverse Reactions: Allergies No Known Allergies Allergy (Verified 06/21/16 01:02) Home Medications: Home Medications Medication Instructions Recorded Confirmed Last Taken Type Fluticasone [Flonase] 50 mcg IH Q4-6H PRN 06/21/16 02/10/19 Unknown History Gabapentin [Neurontin] 800 mg PO Q8H 06/21/16 02/10/19 06/19/16 History Glimepiride [Amaryl] 2 mg PO QAM 06/21/16 02/10/19 06/20/16 History Insulin Glargine,Hum.rec.anlog 100 units SUB-Q QHS 06/21/16 02/10/19 06/19/16 History [Lantus Solostar] Lisinopril [Zestril TAB] 40 mg PO QDAY 06/21/16 02/10/19 06/20/16 History Metformin HCl [Metformin HCl ER] 500 mg PO BID 06/21/16 02/10/19 06/20/16 History amLODIPine [Norvasc] 5 mg PO DAILY 06/21/16 02/10/19 06/20/16 History Albuterol Sulfate [Albuterol 0.63% 0.63 mg IH TID PRN #1 box 06/22/16 02/10/19 Unknown Rx NEBS] Azithromycin [Zithromax TAB] 250 mg PO QDAY #6 tablet 06/22/16 02/10/19 Unknown Rx Benzonatate [Tessalon Perles] 100 mg PO Q8HR #30 capsule 06/22/16 02/10/19 Unknown Rx Ipratropium [Atrovent NEB] 0.5 mg IH Q8HRT #1 box 06/22/16 02/10/19 Unknown Rx Nebulizer and Compressor 1 each MC DAILY PRN #1 each 06/22/16 02/10/19 Unknown Rx [Devilbiss Pulmoneb Lt Comp-Neb] Prednisone [predniSONE 10 mg 10 mg PO .TAPER #1 tab.ds.pk 06/22/16 02/10/19 Unknown Rx (6-Day Pack, 21 Tabs)] Active Medications: Generic Name Dose Route Start Last Admin Trade Name Freq PRN Reason Stop Dose Admin Acetaminophen 650 mg 02/09/19 22:59 02/17/19 22:04 Tylenol PO 650 mg Q4H PRN Administration Pain MILD(1-3)/Fever >100.5/ARREDONDO Albumin Human 25 gm 02/11/19 12:02 Alburx 25% (Albumin) IV TREVA PRN Hypotension Albuterol 1.25 mg 02/10/19 01:36 Proventil IH TIDRT PRN Shortness Of Breath Albuterol/Ipratropium 1 ampul 02/10/19 14:00 02/18/19 07:58 Duoneb *Not For Prn Use* IH 1 ampul Q6HRT YISEL Administration Lipase/Protease/Amylase 1 each 02/17/19 07:58 Pancregopi Mcbride 10,500 Unit FEEDTUBE PRN PRN For Clogged Feeding Tube Dextrose 50 ml 02/13/19 18:56 02/18/19 01:03 D50w (25gm) Syringe IV 50 ml Q30MIN PRN Administration Hypoglycemia Protocol Famotidine 20 mg 02/16/19 10:00 02/18/19 09:30 Pepcid IV 20 mg DAILY YISEL Administration Heparin Sodium (Porcine) 5,000 unit 02/10/19 22:00 02/18/19 10:55 Heparin SUB-Q 5,000 unit Q12HR YISEL Administration Hydromorphone HCl 0.25 mg 02/09/19 22:59 Dilaudid IV Q3H PRN Pain, Moderate (4-6) Hydrophilic Ointment 1 applic 02/15/19 18:50 Vaseline Lip Therapy TP Q2HR PRN Dry Lips Sodium Chloride 100 mls @ 999 mls/hr 02/11/19 12:02 Nacl 0.9% IV TREVA PRN Hypotension MEROPENEM/NS 1 GRAM/100 ML 1 gram in 100 mls @ 100 mls/hr 02/15/19 16:00 02/18/19 10:59 Merrem/Ns 1 Gram/100 Ml IV 100 mls/hr Q24HR YISEL Administration Protocol Clindamycin HCl 900 mg in 50 mls @ 100 mls/hr 02/15/19 17:00 02/18/19 05:51 Cleocin 900 Mg/50 Ml IV 100 mls/hr Q8HR YISEL Administration Protocol Fentanyl Citrate 2,000 mcg in 100 mls @ 8.4 mls/hr 02/15/19 19:00 02/18/19 04:03 Fentanyl Drip Premix IV 0 mcg/kg/hr TITR YISEL 0 mls/hr Titration Protocol 1 MCG/KG/HR Propofol 1,000 mg in 100 mls @ 5.04 mls/hr 02/15/19 19:00 02/16/19 07:29 Diprivan 10 Mg/Ml IV 0 mcg/kg/min TITR YISEL 0 mls/hr Titration Protocol 5 MCG/KG/MIN Norepinephrine 8 mg/ Sodium 250 mls @ 3.75 mls/hr 02/15/19 23:45 02/18/19 13:10 Chloride IV 30 mcg/min TITR YISEL 56.25 mls/hr Administration Protocol 2 MCG/MIN Fluconazole 200 mg in 100 mls @ 100 mls/hr 02/16/19 10:00 02/18/19 09:30 Diflucan IV 100 mls/hr Q24HR YISEL Administration Protocol Vasopressin 20 unit/ Sodium 101 mls @ 9.09 mls/hr 02/16/19 22:00 02/18/19 10:05 Chloride IV 0.03 units/min TITR YISEL 9.09 mls/hr Administration Protocol 0.03 UNITS/MIN Phenylephrine HCl 100 mg/ 100 mls @ 3 mls/hr 02/17/19 07:45 02/18/19 13:09 Sodium Chloride IV 360 mcg/min TITR YISEL 21.6 mls/hr Administration Protocol 50 MCG/MIN Sodium Bicarbonate 150 meq/ 1,150 mls @ 125 mls/hr 02/17/19 20:45 02/18/19 06:31 Dextrose IV 02/20/19 05:56 125 mls/hr DIRECT YISEL Administration Dopamine HCl/Dextrose 800 mg in 250 mls @ 31.5 mls/hr 02/18/19 13:00 02/18/19 12:58 Intropin Drip 800 Mg/D5w 250 Ml IV 10 mcg/kg/min TITR YISEL 31.5 mls/hr Administration Protocol 10 MCG/KG/MIN Insulin Glargine 10 units 02/16/19 11:00 02/18/19 09:29 Lantus SUB-Q Not Given QAMDIAB [facility] Insulin Human Lispro 0 unit 02/13/19 19:00 02/18/19 13:17 Humalog SUB-Q Not Given Q6HR [facility] Protocol Multi-Ingred Cream/Lotion/Oil/Oint 1 applic 02/15/19 18:50 02/15/19 22:08 Artificial Tears Ophth Oint OU 1 applic Q4HR PRN Administration Dry Eye(s) Ondansetron HCl 4 mg 02/09/19 22:59 Zofran IV Q8H PRN Nausea And Vomiting Oxycodone/Acetaminophen 1 tab 02/09/19 22:59 Percocet 5/325 PO Q6H PRN Pain, Moderate (4-6) Simple Syrup 30 ml 02/17/19 07:58 02/17/19 14:30 Simple Syrup FEEDTUBE 30 ml PRN PRN Administration Hypoglycemia Simple Syrup 15 ml 02/17/19 20:20 02/18/19 05:52 Simple Syrup FEEDTUBE 15 ml PRN PRN Administration Hypoglycemia Sodium Bicarbonate 325 mg 02/17/19 07:58 Sodium Bicarbonate FEEDTUBE PRN PRN For Clogged Feeding Tube Sodium Chloride 10 ml 02/10/19 10:00 02/18/19 10:55 Sodium Chloride Flush Syringe 10 Ml IV 10 ml BID YISEL Administration Sodium Chloride 10 ml 02/09/19 22:59 02/10/19 06:44 Sodium Chloride Flush Syringe 10 Ml IV 10 ml PRN PRN Administration LINE FLUSH Sodium Hypochlorite 1 applic 02/15/19 16:06 02/18/19 07:00 Dakin's Half Strength TP 1 applicatio Q12H PRN Administration Wound Care
[2019-02-18] MEDS ORDERED: ALBUMIN HUMAN 25% (25 GM/100 ML) INJ IV SCH (14:00)
[2019-02-18] MEDS ORDERED: SODIUM CHLORIDE 0.9% 100 ML IV PRN (14:03)
--- NOTE | 2019-02-18 14:07 | Progress Note ---
Assessment and Plan Acute hypercapnic respiratory failure Acute toxic-metabolic encephalopathy Severe Sepsis with Shock JESÚS on CKD requiring Hemodialysis Extreme obesity AUDI/OHS - to begin cautious dialysis re: hemodynamic instability and family made aware - continue to wean vasopressor support for target MAP > 65 mmHg - continue hyperventilation (rate at 30 and TV at 600 mls) for respiratory compensation - continue daily SAT's and SBT assessment as tolerated in am - VAP bundle addressed (including aspiration precautions, HOB > 40 degrees) - continue Lung protective strategies - continue to wean FIO2 for O2 sats >90% - continue bronchodilators with pulmonary hygiene per RT - continue daily CXR's & ABG's acutely - continue agitation management / Pain management per CPOT (keep on Fentanyl @ 0.5mic's/kg/hr for now) - Continue mobility protocol for pressure ulcer prevention - Continue to monitor hemodynamics closely - Monitor electrolyte profile closely and replete as indicated - continue chronic home medications per attending and as clinically indicated - continue Lantus insulin 10 units sq daily - continue tube feeds at goal rate as tolerated - cotinue HD/UF per nephrology for toxin and volume clearance - nephrology input appreciated - continue antibiotics for Sepsis and adjust per ID rec's (de-escalate based on clinical and microbiologic data) - continue VTE prophylaxis - continue stress ulcer prophylaxis - continue accuchecks with glycemic control per SSI (While critically ill target blood glucose of 140-180 mg/dL; avoid hypoglycemia) - mobility protocol for pressure ulcer prevention - Monitor hemodynamics closely - Monitor electrolyte profile closely and replete as indicated - resume pertinent chronic home medications as clinically indicated - continue lynch catheter in this critically ill patient, with JESÚS requiring accurate intake and output monitoring - continue other care per attending / other senior sales consultant's ...... care plan discussed at length with daughter at bedside ... re-evaluate in am & prn CONDITION: CRITICAL PROGNOSIS: GUARDED-POOR CODE STATUS: FULL CODE The high probability of a clinically significant, sudden or life-threatening deterioration of the [respiratory, cardiovascular, neurology] system(s) required my full and direct attention, intervention and personal management. The aggregate critical care time was [45] minutes without overlap. Time includes sp ent on; [x] Data Review and interpretation [x] Patient assessment and monitoring of vital signs [x] Documentation [x] Medication orders and management Subjective Date of service: 02/18/19 Principal diagnosis: Ac. hypercapnic resp. failure; Severe Sepsis with Shock; JESÚS on CKD; AUDI Interval history: Patient is seen today for: Acute hypercapnic respiratory failure; Acute toxic- metabolic encephalopathy; Severe Sepsis with Shock ; Necrotizing fasciitis of left thigh/groin; JESÚS on CKD requiring Hemodialysis; Extreme obesity; AUDI/OHS Seen and examined at bedside; 24hour events reviewed; nursing and respiratory care staff consulted; no adverse overnight events reported to me; resting peacefully in bed; remains on MVS; on vasopressin, levophed, neosynephrine and now dopamine; still with severe acidosis (lactic mostly) despite aggressive bicarbonate supplementation; no emesis or overt aspiration reported. Objective Vital Signs - 12hr 02/18/19 02/18/19 02/18/19 02:15 02:30 02:45 Temperature Pulse Rate 87 87 87 Pulse Rate [ Anterior Bilateral Throughout] Pulse Rate [ Bilateral Throughout] Pulse Rate [ From Monitor] Respiratory 14 15 15 Rate Respiratory Rate [Anterior Bilateral Throughout] Respiratory Rate [Bilateral Throughout] Blood Pressure 93/52 83/39 93/47 O2 Sat by Pulse 90 100 Oximetry 02/18/19 02/18/19 02/18/19 03:00 03:15 03:31 Temperature Pulse Rate 86 86 86 Pulse Rate [ Anterior Bilateral Throughout] Pulse Rate [ Bilateral Throughout] Pulse Rate [ From Monitor] Respiratory 14 14 15 Rate Respiratory Rate [Anterior Bilateral Throughout] Respiratory Rate [Bilateral Throughout] Blood Pressure 82/47 81/38 89/47 O2 Sat by Pulse 75 L 95 92 Oximetry 02/18/19 02/18/19 02/18/19 03:45 04:00 04:01 Temperature 99.8 F H Pulse Rate 88 88 88 Pulse Rate [ Anterior Bilateral Throughout] Pulse Rate [ Bilateral Throughout] Pulse Rate [ 88 From Monitor] Respiratory 14 15 15 Rate Respiratory Rate [Anterior Bilateral Throughout] Respiratory Rate [Bilateral Throughout] Blood Pressure 95/62 100/46 O2 Sat by Pulse 90 85 85 Oximetry 02/18/19 02/18/19 02/18/19 04:13 04:15 04:30 Temperature Pulse Rate 88 89 90 Pulse Rate [ Anterior Bilateral Throughout] Pulse Rate [ Bilateral Throughout] Pulse Rate [ From Monitor] Respiratory 30 H 30 H Rate Respiratory Rate [Anterior Bilateral Throughout] Respiratory Rate [Bilateral Throughout] Blood Pressure 95/62 99/52 94/60 O2 Sat by Pulse 89 93 100 Oximetry 02/18/19 02/18/19 02/18/19 04:45 05:01 05:15 Temperature Pulse Rate 87 87 87 Pulse Rate [ Anterior Bilateral Throughout] Pulse Rate [ Bilateral Throughout] Pulse Rate [ From Monitor] Respiratory 30 H 30 H 30 H Rate Respiratory Rate [Anterior Bilateral Throughout] Respiratory Rate [Bilateral Throughout] Blood Pressure 102/45 102/45 100/44 O2 Sat by Pulse 96 96 93 Oximetry 02/18/19 02/18/19 02/18/19 05:30 05:45 06:01 Temperature Pulse Rate 87 88 87 Pulse Rate [ Anterior Bilateral Throughout] Pulse Rate [ Bilateral Throughout] Pulse Rate [ From Monitor] Respiratory 30 H 30 H 30 H Rate Respiratory Rate [Anterior Bilateral Throughout] Respiratory Rate [Bilateral Throughout] Blood Pressure 94/46 100/44 107/39 O2 Sat by Pulse 92 93 Oximetry 02/18/19 02/18/19 02/18/19 06:15 06:30 06:45 Temperature Pulse Rate 85 85 85 Pulse Rate [ Anterior Bilateral Throughout] Pulse Rate [ Bilateral Throughout] Pulse Rate [ From Monitor] Respiratory 31 H 31 H 21 Rate Respiratory Rate [Anterior Bilateral Throughout] Respiratory Rate [Bilateral Throughout] Blood Pressure 95/49 86/47 88/54 O2 Sat by Pulse 90 90 87 Oximetry 02/18/19 02/18/19 02/18/19 07:01 07:15 07:25 Temperature Pulse Rate 86 87 90 Pulse Rate [ Anterior Bilateral Throughout] Pulse Rate [ Bilateral Throughout] Pulse Rate [ From Monitor] Respiratory 30 H 30 H Rate Respiratory Rate [Anterior Bilateral Throughout] Respiratory Rate [Bilateral Throughout] Blood Pressure 85/37 96/56 92/60 O2 Sat by Pulse 82 L 81 L 90 Oximetry 02/18/19 02/18/19 02/18/19 07:30 07:45 07:53 Temperature Pulse Rate 87 87 Pulse Rate [ Anterior Bilateral Throughout] Pulse Rate [ 90 Bilateral Throughout] Pulse Rate [ From Monitor] Respiratory 27 H 30 H Rate Respiratory Rate [Anterior Bilateral Throughout] Respiratory 30 H Rate [Bilateral Throughout] Blood Pressure 95/51 100/52 O2 Sat by Pulse 89 89 Oximetry 02/18/19 02/18/19 02/18/19 08:00 08:01 08:15 Temperature 99.7 F H Pulse Rate 88 218 H Pulse Rate [ Anterior Bilateral Throughout] Pulse Rate [ Bilateral Throughout] Pulse Rate [ 87 From Monitor] Respiratory 30 H 31 H 23 Rate Respiratory Rate [Anterior Bilateral Throughout] Respiratory Rate [Bilateral Throughout] Blood Pressure 120/13 100/52 O2 Sat by Pulse 95 90 100 Oximetry 02/18/19 02/18/19 02/18/19 08:30 08:45 09:00 Temperature Pulse Rate 88 86 87 Pulse Rate [ Anterior Bilateral Throughout] Pulse Rate [ Bilateral Throughout] Pulse Rate [ From Monitor] Respiratory 26 H 18 29 H Rate Respiratory Rate [Anterior Bilateral Throughout] Respiratory Rate [Bilateral Throughout] Blood Pressure 108/60 80/59 80/59 O2 Sat by Pulse 100 84 Oximetry 02/18/19 02/18/19 02/18/19 09:15 09:30 09:45 Temperature Pulse Rate 86 86 91 H Pulse Rate [ Anterior Bilateral Throughout] Pulse Rate [ Bilateral Throughout] Pulse Rate [ From Monitor] Respiratory 30 H 30 H 30 H Rate Respiratory Rate [Anterior Bilateral Throughout] Respiratory Rate [Bilateral Throughout] Blood Pressure 80/59 94/23 94/23 O2 Sat by Pulse 100 98 Oximetry 02/18/19 02/18/19 02/18/19 10:01 10:15 10:31 Temperature Pulse Rate 85 85 86 Pulse Rate [ Anterior Bilateral Throughout] Pulse Rate [ Bilateral Throughout] Pulse Rate [ From Monitor] Respiratory 30 H 30 H Rate Respiratory Rate [Anterior Bilateral Throughout] Respiratory Rate [Bilateral Throughout] Blood Pressure 91/16 91/16 105/40 O2 Sat by Pulse 100 98 99 Oximetry 02/18/19 02/18/19 13:28 13:41 Temperature Pulse Rate 90 Pulse Rate [ 90 Anterior Bilateral Throughout] Pulse Rate [ Bilateral Throughout] Pulse Rate [ From Monitor] Respiratory Rate Respiratory 30 H Rate [Anterior Bilateral Throughout] Respiratory Rate [Bilateral Throughout] Blood Pressure O2 Sat by Pulse 98 Oximetry Constitutional: no acute distress, alert, other (elderly looking morbidly obese AAF, normocephalic on NC with mildly increased respiratory effort at rest) Eyes: non-icteric ENT: oropharynx moist, other (ETT 23-24 cm GENE) Neck: supple, no lymphadenopathy, no JVD, other (+ large neck circumference) Effort: mildly labored Ascultation: Bilateral: clear, diminished breath sounds Percussion: Bilateral: not dull Cardiovascular: regular rate and rhythm, other (S1,S2, ) Gastrointestinal: normoactive bowel sounds, soft, non-tender, non-distended, other (Protuberant) Integumentary: rash (stasisi dermatitis) Extremities: no cyanosis, no edema, pulses normal, no ischemia or petechiae, other (right groin trialysis catheter; Left groin / thigh in clean surgical dressing) Neurologic: non-focal exam (grossly), pupils equal and round, other (Encephalopathic) Psychiatric: mood appropriate, affect normal CBC and BMP: 02/18/19 05:15 02/18/19 05:15 ABG, PT/INR, D-dimer: ABG POC ABG pH 6.781 (7.35-7.45) L 02/18/19 13:31 ABG pH 7.368 pH Units (7.350-7.450) 02/14/19 18:07 POC ABG pCO2 25.0 (35-45) L 02/18/19 13:31 ABG pCO2 44.1 mm Hg 02/14/19 18:07 POC ABG pO2 224 (80-105) H 02/18/19 13:31 ABG pO2 86.4 mm Hg (80.0-90.0) 02/14/19 18:07 POC ABG HCO3 3.7 (22-26 mml/L) 02/18/19 13:31 POC ABG Total CO2 < 5 (23-27mmol/L) 02/18/19 13:31 POC ABG O2 Sat 99 02/18/19 13:31 ABG O2 Saturation 96.7 % (95.0-99.0) 02/14/19 18:07 PT/INR, D-dimer PT 18.3 Sec. (12.2-14.9) H 02/16/19 05:15 INR 1.54 (0.87-1.13) H 02/16/19 05:15 Abnormal lab findings: Abnormal Labs 02/09/19 02/09/19 02/09/19 08:48 09:16 09:16 WBC 14.6 H RBC 2.48 L Hgb 8.2 L Hct 25.4 L MCV 102 H MCH 33 H MCHC RDW 16.1 H Plt Count Seg Neuts % (Manual) 94.0 H Lymphocytes % (Manual) 1.0 L Nucleated RBC % 1.0 H Seg Neutrophils # Man 13.7 H Lymphocytes # (Manual) 0.1 L PT 17.8 H INR 1.49 H POC ABG pH POC ABG pCO2 POC ABG pO2 ABG Hemoglobin Oxyhemoglobin Sodium Potassium Chloride Carbon Dioxide BUN Creatinine Glucose POC Glucose 51 L Hemoglobin A1c Lactic Acid Calcium Total Bilirubin Ammonia Total Creatine Kinase Troponin T Total Protein Albumin Vtmgh-5-Dpuprzfic Beta Globulins Gamma Globulins Abnorm Protein Band 1 Abnorm Protein Band 2 PEP Interpretation Cholesterol LDL Cholesterol Direct HDL Cholesterol TSH Urine WBC (Auto) Urine Creatinine Urine Total Protein Immunofix Electrophor 02/09/19 02/09/19 02/09/19 09:16 09:16 09:16 WBC RBC Hgb Hct MCV MCH MCHC RDW Plt Count Seg Neuts % (Manual) Lymphocytes % (Manual) Nucleated RBC % Seg Neutrophils # Man Lymphocytes # (Manual) PT INR POC ABG pH POC ABG pCO2 POC ABG pO2 ABG Hemoglobin Oxyhemoglobin Sodium 131 L Potassium 6.0 H Chloride 91.4 L Carbon Dioxide 18 L BUN 115 H Creatinine 6.8 H Glucose POC Glucose Hemoglobin A1c Lactic Acid Calcium Total Bilirubin 2.90 H Ammonia 61.0 H Total Creatine Kinase 264 H Troponin T 0.073 H Total Protein 8.8 H Albumin 2.6 L Pdndt-4-Ilqbftyom Beta Globulins Gamma Globulins Abnorm Protein Band 1 Abnorm Protein Band 2 PEP Interpretation Cholesterol 47 L LDL Cholesterol Direct 13 L HDL Cholesterol 27 L TSH 5.570 H Urine WBC (Auto) Urine Creatinine Urine Total Protein Immunofix Electrophor 02/09/19 02/09/19 02/09/19 12:47 14:30 14:30 WBC RBC Hgb Hct MCV MCH MCHC RDW Plt Count Seg Neuts % (Manual) Lymphocytes % (Manual) Nucleated RBC % Seg Neutrophils # Man Lymphocytes # (Manual) PT INR POC ABG pH POC ABG pCO2 POC ABG pO2 ABG Hemoglobin Oxyhemoglobin Sodium 131 L Potassium 5.6 H Chloride 91.8 L Carbon Dioxide 17 L BUN 117 H Creatinine 6.5 H Glucose 50 L POC Glucose Hemoglobin A1c Lactic Acid Calcium Total Bilirubin Ammonia Total Creatine Kinase Troponin T Total Protein Albumin Ltnzv-4-Btmfrcwqv Beta Globulins Gamma Globulins Abnorm Protein Band 1 Abnorm Protein Band 2 PEP Interpretation Cholesterol LDL Cholesterol Direct HDL Cholesterol TSH Urine WBC (Auto) 32.0 H Urine Creatinine 162.4 H Urine Total Protein 49 H Immunofix Electrophor 11/15/19 11/15/19 11/15/19 15:05 15:39 19:03 WBC RBC Hgb Hct MCV MCH MCHC RDW Plt Count Seg Neuts % (Manual) Lymphocytes % (Manual) Nucleated RBC % Seg Neutrophils # Man Lymphocytes # (Manual) PT INR POC ABG pH POC ABG pCO2 POC ABG pO2 ABG Hemoglobin Oxyhemoglobin Sodium 131 L Potassium 5.7 H Chloride 93.6 L Carbon Dioxide 19 L BUN 111 H Creatinine 7.0 H Glucose 48 L POC Glucose < 40 L 112 H Hemoglobin A1c Lactic Acid Calcium Total Bilirubin Ammonia Total Creatine Kinase Troponin T Total Protein Albumin Wpvel-4-Egxcqjnfl Beta Globulins Gamma Globulins Abnorm Protein Band 1 Abnorm Protein Band 2 PEP Interpretation Cholesterol LDL Cholesterol Direct HDL Cholesterol TSH Urine WBC (Auto) Urine Creatinine Urine Total Protein Immunofix Electrophor 02/09/19 02/09/19 02/09/19 19:03 19:03 21:59 WBC RBC Hgb Hct MCV MCH MCHC RDW Plt Count Seg Neuts % (Manual) Lymphocytes % (Manual) Nucleated RBC % Seg Neutrophils # Man Lymphocytes # (Manual) PT INR POC ABG pH POC ABG pCO2 POC ABG pO2 ABG Hemoglobin Oxyhemoglobin Sodium Potassium Chloride Carbon Dioxide BUN Creatinine Glucose POC Glucose 61 L Hemoglobin A1c Lactic Acid Calcium Total Bilirubin Ammonia Total Creatine Kinase Troponin T Total Protein Albumin 2.4 L Iafab-9-Jwoudktrg 0.5 H Beta Globulins 2.8 H Gamma Globulins 0.7 L Abnorm Protein Band 1 2.7 H Abnorm Protein Band 2 0.3 H PEP Interpretation see below H Cholesterol LDL Cholesterol Direct HDL Cholesterol TSH Urine WBC (Auto) Urine Creatinine Urine Total Protein Immunofix Electrophor see below H 02/09/19 02/10/19 02/10/19 23:24 03:06 06:36 WBC RBC Hgb Hct MCV MCH MCHC RDW Plt Count Seg Neuts % (Manual) Lymphocytes % (Manual) Nucleated RBC % Seg Neutrophils # Man Lymphocytes # (Manual) PT INR POC ABG pH POC ABG pCO2 POC ABG pO2 ABG Hemoglobin Oxyhemoglobin Sodium Potassium Chloride Carbon Dioxide BUN Creatinine Glucose POC Glucose < 40 L 60 L Hemoglobin A1c 8.5 H Lactic Acid Calcium Total Bilirubin Ammonia Total Creatine Kinase Troponin T Total Protein Albumin Tadsy-2-Gtaffzttw Beta Globulins Gamma Globulins Abnorm Protein Band 1 Abnorm Protein Band 2 PEP Interpretation Cholesterol LDL Cholesterol Direct HDL Cholesterol TSH Urine WBC (Auto) Urine Creatinine Urine Total Protein Immunofix Electrophor 02/10/19 02/10/19 02/10/19 06:39 07:21 09:28 WBC 14.7 H RBC 2.60 L Hgb 8.5 L Hct 26.9 L MCV 104 H MCH 33 H MCHC RDW 16.6 H Plt Count Seg Neuts % (Manual) 96.0 H Lymphocytes % (Manual) 1.0 L Nucleated RBC % 3.0 H Seg Neutrophils # Man 14.1 H Lymphocytes # (Manual) 0.1 L PT INR POC ABG pH POC ABG pCO2 POC ABG pO2 ABG Hemoglobin Oxyhemoglobin Sodium 130 L Potassium 6.2 H* Chloride 89.4 L Carbon Dioxide 17 L BUN 124 H Creatinine 6.8 H Glucose 120 H POC Glucose 120 H Hemoglobin A1c Lactic Acid Calcium 8.3 L Total Bilirubin 3.10 H Ammonia Total Creatine Kinase Troponin T Total Protein 8.3 H Albumin 2.4 L Drtsa-3-Zxblwabyl Beta Globulins Gamma Globulins Abnorm Protein Band 1 Abnorm Protein Band 2 PEP Interpretation Cholesterol LDL Cholesterol Direct HDL Cholesterol TSH Urine WBC (Auto) Urine Creatinine Urine Total Protein Immunofix Electrophor 02/10/19 02/10/19 02/10/19 10:20 10:32 14:15 WBC RBC Hgb Hct MCV MCH MCHC RDW Plt Count Seg Neuts % (Manual) Lymphocytes % (Manual) Nucleated RBC % Seg Neutrophils # Man Lymphocytes # (Manual) PT INR POC ABG pH POC ABG pCO2 POC ABG pO2 ABG Hemoglobin Oxyhemoglobin Sodium Potassium 5.9 H Chloride Carbon Dioxide BUN Creatinine Glucose POC Glucose 64 L 67 L Hemoglobin A1c Lactic Acid Calcium Total Bilirubin Ammonia Total Creatine Kinase Troponin T Total Protein Albumin Euodi-9-Wxeuubssv Beta Globulins Gamma Globulins Abnorm Protein Band 1 Abnorm Protein Band 2 PEP Interpretation Cholesterol LDL Cholesterol Direct HDL Cholesterol TSH Urine WBC (Auto) Urine Creatinine Urine Total Protein Immunofix Electrophor 02/10/19 02/11/19 02/11/19 20:06 04:48 07:56 WBC RBC Hgb Hct MCV MCH MCHC RDW Plt Count Seg Neuts % (Manual) Lymphocytes % (Manual) Nucleated RBC % Seg Neutrophils # Man Lymphocytes # (Manual) PT INR POC ABG pH POC ABG pCO2 POC ABG pO2 ABG Hemoglobin Oxyhemoglobin Sodium 130 L Potassium Chloride 91.2 L Carbon Dioxide 20 L BUN 81 H Creatinine 5.7 H Glucose POC Glucose 113 H 124 H Hemoglobin A1c Lactic Acid Calcium 8.1 L Total Bilirubin Ammonia Total Creatine Kinase Troponin T Total Protein Albumin Cmmhh-9-Uaxzpkxkz Beta Globulins Gamma Globulins Abnorm Protein Band 1 Abnorm Protein Band 2 PEP Interpretation Cholesterol LDL Cholesterol Direct HDL Cholesterol TSH Urine WBC (Auto) Urine Creatinine Urine Total Protein Immunofix Electrophor 02/11/19 02/11/19 02/11/19 10:35 11:46 14:56 WBC RBC Hgb Hct MCV MCH MCHC RDW Plt Count Seg Neuts % (Manual) Lymphocytes % (Manual) Nucleated RBC % Seg Neutrophils # Man Lymphocytes # (Manual) PT INR POC ABG pH 7.304 L POC ABG pCO2 47.7 H POC ABG pO2 142 H ABG Hemoglobin Oxyhemoglobin Sodium Potassium Chloride Carbon Dioxide BUN Creatinine Glucose POC Glucose 128 H 146 H Hemoglobin A1c Lactic Acid Calcium Total Bilirubin Ammonia Total Creatine Kinase Troponin T Total Protein Albumin Tcftc-3-Sbqbjjhak Beta Globulins Gamma Globulins Abnorm Protein Band 1 Abnorm Protein Band 2 PEP Interpretation Cholesterol LDL Cholesterol Direct HDL Cholesterol TSH Urine WBC (Auto) Urine Creatinine Urine Total Protein Immunofix Electrophor 02/11/19 02/11/19 02/12/19 18:16 23:48 05:35 WBC RBC Hgb Hct MCV MCH MCHC RDW Plt Count Seg Neuts % (Manual) Lymphocytes % (Manual) Nucleated RBC % Seg Neutrophils # Man Lymphocytes # (Manual) PT INR POC ABG pH POC ABG pCO2 POC ABG pO2 ABG Hemoglobin Oxyhemoglobin Sodium 133 L Potassium Chloride 93.8 L Carbon Dioxide 19 L BUN 61 H Creatinine 4.5 H Glucose 165 H POC Glucose 136 H 141 H Hemoglobin A1c Lactic Acid Calcium 8.3 L Total Bilirubin Ammonia Total Creatine Kinase Troponin T Total Protein Albumin Cugjn-5-Kspriusmu Beta Globulins Gamma Globulins Abnorm Protein Band 1 Abnorm Protein Band 2 PEP Interpretation Cholesterol LDL Cholesterol Direct HDL Cholesterol TSH Urine WBC (Auto) Urine Creatinine Urine Total Protein Immunofix Electrophor 02/12/19 02/12/19 02/12/19 05:53 11:09 11:56 WBC RBC Hgb Hct MCV MCH MCHC RDW Plt Count Seg Neuts % (Manual) Lymphocytes % (Manual) Nucleated RBC % Seg Neutrophils # Man Lymphocytes # (Manual) PT INR POC ABG pH 7.336 L POC ABG pCO2 POC ABG pO2 ABG Hemoglobin Oxyhemoglobin Sodium Potassium Chloride Carbon Dioxide BUN Creatinine Glucose POC Glucose 170 H 187 H Hemoglobin A1c Lactic Acid Calcium Total Bilirubin Ammonia Total Creatine Kinase Troponin T Total Protein Albumin Yfszp-5-Iqnhyfnfr Beta Globulins Gamma Globulins Abnorm Protein Band 1 Abnorm Protein Band 2 PEP Interpretation Cholesterol LDL Cholesterol Direct HDL Cholesterol TSH Urine WBC (Auto) Urine Creatinine Urine Total Protein Immunofix Electrophor 02/12/19 02/12/19 02/13/19 18:05 23:43 05:12 WBC RBC Hgb Hct MCV MCH MCHC RDW Plt Count Seg Neuts % (Manual) Lymphocytes % (Manual) Nucleated RBC % Seg Neutrophils # Man Lymphocytes # (Manual) PT INR POC ABG pH POC ABG pCO2 POC ABG pO2 ABG Hemoglobin Oxyhemoglobin Sodium Potassium Chloride 97.9 L Carbon Dioxide 19 L BUN 44 H Creatinine 3.1 H Glucose 252 H POC Glucose 207 H 236 H Hemoglobin A1c Lactic Acid Calcium Total Bilirubin Ammonia Total Creatine Kinase Troponin T Total Protein Albumin Evcdj-2-Yawzzyxke Beta Globulins Gamma Globulins Abnorm Protein Band 1 Abnorm Protein Band 2 PEP Interpretation Cholesterol LDL Cholesterol Direct HDL Cholesterol TSH Urine WBC (Auto) Urine Creatinine Urine Total Protein Immunofix Electrophor 02/13/19 02/13/19 02/13/19 05:12 05:31 09:52 WBC 32.4 H RBC 2.54 L Hgb 8.3 L Hct 26.0 L MCV 102 H MCH 33 H MCHC RDW 16.5 H Plt Count Seg Neuts % (Manual) 92.0 H Lymphocytes % (Manual) 3.0 L Nucleated RBC % 1.0 H Seg Neutrophils # Man 29.8 H Lymphocytes # (Manual) 1.0 L PT INR POC ABG pH 7.337 L POC ABG pCO2 POC ABG pO2 ABG Hemoglobin Oxyhemoglobin Sodium Potassium Chloride Carbon Dioxide BUN Creatinine Glucose POC Glucose 237 H Hemoglobin A1c Lactic Acid Calcium Total Bilirubin Ammonia Total Creatine Kinase Troponin T Total Protein Albumin Otxfu-1-Dvlnmcmok Beta Globulins Gamma Globulins Abnorm Protein Band 1 Abnorm Protein Band 2 PEP Interpretation Cholesterol LDL Cholesterol Direct HDL Cholesterol TSH Urine WBC (Auto) Urine Creatinine Urine Total Protein Immunofix Electrophor 02/13/19 02/13/19 02/13/19 12:02 17:21 23:40 WBC RBC Hgb Hct MCV MCH MCHC RDW Plt Count Seg Neuts % (Manual) Lymphocytes % (Manual) Nucleated RBC % Seg Neutrophils # Man Lymphocytes # (Manual) PT INR POC ABG pH POC ABG pCO2 POC ABG pO2 ABG Hemoglobin Oxyhemoglobin Sodium Potassium Chloride Carbon Dioxide BUN Creatinine Glucose POC Glucose 318 H 342 H 338 H Hemoglobin A1c Lactic Acid Calcium Total Bilirubin Ammonia Total Creatine Kinase Troponin T Total Protein Albumin Qgnbr-3-Gyupzjzpk Beta Globulins Gamma Globulins Abnorm Protein Band 1 Abnorm Protein Band 2 PEP Interpretation Cholesterol LDL Cholesterol Direct HDL Cholesterol TSH Urine WBC (Auto) Urine Creatinine Urine Total Protein Immunofix Electrophor 02/14/19 02/14/19 02/14/19 05:27 05:54 08:36 WBC 40.7 H* RBC 2.28 L Hgb 7.3 L Hct 23.2 L MCV 101 H MCH MCHC RDW 16.1 H Plt Count Seg Neuts % (Manual) Lymphocytes % (Manual) Nucleated RBC % Seg Neutrophils # Man Lymphocytes # (Manual) PT INR POC ABG pH POC ABG pCO2 POC ABG pO2 ABG Hemoglobin Oxyhemoglobin Sodium Potassium Chloride Carbon Dioxide 17 L BUN 65 H Creatinine 3.6 H Glucose 286 H POC Glucose 253 H Hemoglobin A1c Lactic Acid Calcium Total Bilirubin Ammonia Total Creatine Kinase Troponin T Total Protein Albumin Amhys-9-Uyxeaorbb Beta Globulins Gamma Globulins Abnorm Protein Band 1 Abnorm Protein Band 2 PEP Interpretation Cholesterol LDL Cholesterol Direct HDL Cholesterol TSH Urine WBC (Auto) Urine Creatinine Urine Total Protein Immunofix Electrophor 02/14/19 02/14/19 02/14/19 11:59 16:52 18:07 WBC RBC Hgb Hct MCV MCH MCHC RDW Plt Count Seg Neuts % (Manual) Lymphocytes % (Manual) Nucleated RBC % Seg Neutrophils # Man Lymphocytes # (Manual) PT INR POC ABG pH POC ABG pCO2 POC ABG pO2 ABG Hemoglobin 8.0 L Oxyhemoglobin 93.9 L Sodium Potassium Chloride Carbon Dioxide BUN Creatinine Glucose POC Glucose 253 H 210 H Hemoglobin A1c Lactic Acid Calcium Total Bilirubin Ammonia Total Creatine Kinase Troponin T Total Protein Albumin Gugfg-3-Ugcattxap Beta Globulins Gamma Globulins Abnorm Protein Band 1 Abnorm Protein Band 2 PEP Interpretation Cholesterol LDL Cholesterol Direct HDL Cholesterol TSH Urine WBC (Auto) Urine Creatinine Urine Total Protein Immunofix Electrophor 02/14/19 02/14/19 02/15/19 18:46 23:44 05:23 WBC RBC Hgb Hct MCV MCH MCHC RDW Plt Count Seg Neuts % (Manual) Lymphocytes % (Manual) Nucleated RBC % Seg Neutrophils # Man Lymphocytes # (Manual) PT INR POC ABG pH POC ABG pCO2 POC ABG pO2 ABG Hemoglobin Oxyhemoglobin Sodium Potassium 3.4 L Chloride Carbon Dioxide BUN 49 H Creatinine 2.7 H Glucose 197 H POC Glucose 244 H 184 H Hemoglobin A1c Lactic Acid Calcium 8.3 L Total Bilirubin Ammonia Total Creatine Kinase Troponin T Total Protein Albumin Rohsx-3-Bvaatwsrt Beta Globulins Gamma Globulins Abnorm Protein Band 1 Abnorm Protein Band 2 PEP Interpretation Cholesterol LDL Cholesterol Direct HDL Cholesterol TSH Urine WBC (Auto) Urine Creatinine Urine Total Protein Immunofix Electrophor 02/15/19 02/15/19 02/15/19 05:43 07:55 11:51 WBC 37.5 H RBC 2.20 L Hgb 7.1 L Hct 22.4 L MCV 102 H MCH MCHC RDW 16.0 H Plt Count 138 L Seg Neuts % (Manual) Lymphocytes % (Manual) Nucleated RBC % Seg Neutrophils # Man Lymphocytes # (Manual) PT INR POC ABG pH POC ABG pCO2 POC ABG pO2 ABG Hemoglobin Oxyhemoglobin Sodium Potassium Chloride Carbon Dioxide BUN Creatinine Glucose POC Glucose 202 H 240 H Hemoglobin A1c Lactic Acid Calcium Total Bilirubin Ammonia Total Creatine Kinase Troponin T Total Protein Albumin Kbunb-5-Ylegiqliy Beta Globulins Gamma Globulins Abnorm Protein Band 1 Abnorm Protein Band 2 PEP Interpretation Cholesterol LDL Cholesterol Direct HDL Cholesterol TSH Urine WBC (Auto) Urine Creatinine Urine Total Protein Immunofix Electrophor 02/15/19 02/15/19 02/16/19 18:58 23:25 04:47 WBC RBC Hgb Hct MCV MCH MCHC RDW Plt Count Seg Neuts % (Manual) Lymphocytes % (Manual) Nucleated RBC % Seg Neutrophils # Man Lymphocytes # (Manual) PT INR POC ABG pH 7.309 L POC ABG pCO2 47.1 H POC ABG pO2 125 H ABG Hemoglobin Oxyhemoglobin Sodium Potassium Chloride Carbon Dioxide BUN Creatinine Glucose POC Glucose 234 H 203 H Hemoglobin A1c Lactic Acid Calcium Total Bilirubin Ammonia Total Creatine Kinase Troponin T Total Protein Albumin Zwmvw-6-Edfxaukgw Beta Globulins Gamma Globulins Abnorm Protein Band 1 Abnorm Protein Band 2 PEP Interpretation Cholesterol LDL Cholesterol Direct HDL Cholesterol TSH Urine WBC (Auto) Urine Creatinine Urine Total Protein Immunofix Electrophor 02/16/19 02/16/19 02/16/19 05:15 05:15 05:15 WBC 44.0 H* RBC 2.23 L Hgb 7.1 L Hct 22.8 L MCV 102 H MCH MCHC RDW 16.1 H Plt Count Seg Neuts % (Manual) 82.0 H Lymphocytes % (Manual) 7.0 L Nucleated RBC % 6.0 H Seg Neutrophils # Man 38.2 H Lymphocytes # (Manual) PT 18.3 H INR 1.54 H POC ABG pH POC ABG pCO2 POC ABG pO2 ABG Hemoglobin Oxyhemoglobin Sodium Potassium 3.5 L Chloride Carbon Dioxide 21 L BUN 65 H Creatinine 3.2 H Glucose 164 H POC Glucose Hemoglobin A1c Lactic Acid Calcium 8.3 L Total Bilirubin Ammonia Total Creatine Kinase Troponin T Total Protein Albumin Xnfax-5-Cfgrdosoe Beta Globulins Gamma Globulins Abnorm Protein Band 1 Abnorm Protein Band 2 PEP Interpretation Cholesterol LDL Cholesterol Direct HDL Cholesterol TSH Urine WBC (Auto) Urine Creatinine Urine Total Protein Immunofix Electrophor 02/16/19 02/16/19 02/16/19 05:49 12:02 16:09 WBC RBC Hgb Hct MCV MCH MCHC RDW Plt Count Seg Neuts % (Manual) Lymphocytes % (Manual) Nucleated RBC % Seg Neutrophils # Man Lymphocytes # (Manual) PT INR POC ABG pH POC ABG pCO2 POC ABG pO2 ABG Hemoglobin Oxyhemoglobin Sodium Potassium 3.1 L Chloride 96.6 L Carbon Dioxide BUN 40 H Creatinine 2.1 H Glucose 158 H POC Glucose 209 H 170 H Hemoglobin A1c Lactic Acid Calcium 8.1 L Total Bilirubin Ammonia Total Creatine Kinase Troponin T Total Protein Albumin Yvmsy-5-Vkvihgvvu Beta Globulins Gamma Globulins Abnorm Protein Band 1 Abnorm Protein Band 2 PEP Interpretation Cholesterol LDL Cholesterol Direct HDL Cholesterol TSH Urine WBC (Auto) Urine Creatinine Urine Total Protein Immunofix Electrophor 02/16/19 02/16/19 02/17/19 17:42 23:23 05:22 WBC RBC Hgb Hct MCV MCH MCHC RDW Plt Count Seg Neuts % (Manual) Lymphocytes % (Manual) Nucleated RBC % Seg Neutrophils # Man Lymphocytes # (Manual) PT INR POC ABG pH POC ABG pCO2 POC ABG pO2 77 L ABG Hemoglobin Oxyhemoglobin Sodium Potassium Chloride Carbon Dioxide BUN Creatinine Glucose POC Glucose 157 H 155 H Hemoglobin A1c Lactic Acid Calcium Total Bilirubin Ammonia Total Creatine Kinase Troponin T Total Protein Albumin Unfrq-2-Lfzbeajeh Beta Globulins Gamma Globulins Abnorm Protein Band 1 Abnorm Protein Band 2 PEP Interpretation Cholesterol LDL Cholesterol Direct HDL Cholesterol TSH Urine WBC (Auto) Urine Creatinine Urine Total Protein Immunofix Electrophor 02/17/19 02/17/19 02/17/19 05:31 05:31 05:43 WBC 44.5 H* RBC 2.27 L Hgb 7.3 L Hct 23.3 L MCV 103 H MCH MCHC RDW 16.5 H Plt Count Seg Neuts % (Manual) Lymphocytes % (Manual) Nucleated RBC % Seg Neutrophils # Man Lymphocytes # (Manual) PT INR POC ABG pH POC ABG pCO2 POC ABG pO2 ABG Hemoglobin Oxyhemoglobin Sodium 135 L Potassium Chloride 96.3 L Carbon Dioxide 17 L D BUN 50 H Creatinine 2.4 H Glucose 125 H POC Glucose 158 H Hemoglobin A1c Lactic Acid Calcium 8.0 L Total Bilirubin Ammonia Total Creatine Kinase Troponin T Total Protein Albumin Yivcg-2-Janflssvz Beta Globulins Gamma Globulins Abnorm Protein Band 1 Abnorm Protein Band 2 PEP Interpretation Cholesterol LDL Cholesterol Direct HDL Cholesterol TSH Urine WBC (Auto) Urine Creatinine Urine Total Protein Immunofix Electrophor 02/17/19 02/17/19 02/17/19 13:54 14:37 15:15 WBC RBC Hgb Hct MCV MCH MCHC RDW Plt Count Seg Neuts % (Manual) Lymphocytes % (Manual) Nucleated RBC % Seg Neutrophils # Man Lymphocytes # (Manual) PT INR POC ABG pH POC ABG pCO2 POC ABG pO2 ABG Hemoglobin Oxyhemoglobin Sodium Potassium Chloride Carbon Dioxide BUN Creatinine Glucose POC Glucose < 40 L < 40 L 63 L Hemoglobin A1c Lactic Acid Calcium Total Bilirubin Ammonia Total Creatine Kinase Troponin T Total Protein Albumin Lsutn-3-Pdbulhges Beta Globulins Gamma Globulins Abnorm Protein Band 1 Abnorm Protein Band 2 PEP Interpretation Cholesterol LDL Cholesterol Direct HDL Cholesterol TSH Urine WBC (Auto) Urine Creatinine Urine Total Protein Immunofix Electrophor 02/17/19 02/17/19 02/17/19 15:48 18:52 19:12 WBC RBC Hgb Hct MCV MCH MCHC RDW Plt Count Seg Neuts % (Manual) Lymphocytes % (Manual) Nucleated RBC % Seg Neutrophils # Man Lymphocytes # (Manual) PT INR POC ABG pH POC ABG pCO2 POC ABG pO2 ABG Hemoglobin Oxyhemoglobin Sodium Potassium Chloride Carbon Dioxide BUN Creatinine Glucose POC Glucose 108 H < 40 L Hemoglobin A1c Lactic Acid 13.50 H* Calcium Total Bilirubin Ammonia Total Creatine Kinase Troponin T Total Protein Albumin Ioxjs-1-Ghurkwlic Beta Globulins Gamma Globulins Abnorm Protein Band 1 Abnorm Protein Band 2 PEP Interpretation Cholesterol LDL Cholesterol Direct HDL Cholesterol TSH Urine WBC (Auto) Urine Creatinine Urine Total Protein Immunofix Electrophor 02/17/19 02/17/19 02/17/19 22:03 22:08 23:26 WBC RBC Hgb Hct MCV MCH MCHC RDW Plt Count Seg Neuts % (Manual) Lymphocytes % (Manual) Nucleated RBC % Seg Neutrophils # Man Lymphocytes # (Manual) PT INR POC ABG pH POC ABG pCO2 POC ABG pO2 ABG Hemoglobin Oxyhemoglobin Sodium Potassium Chloride Carbon Dioxide BUN Creatinine Glucose POC Glucose < 40 L < 40 L 65 L Hemoglobin A1c Lactic Acid Calcium Total Bilirubin Ammonia Total Creatine Kinase Troponin T Total Protein Albumin Bouhm-7-Osdkbnmig Beta Globulins Gamma Globulins Abnorm Protein Band 1 Abnorm Protein Band 2 PEP Interpretation Cholesterol LDL Cholesterol Direct HDL Cholesterol TSH Urine WBC (Auto) Urine Creatinine Urine Total Protein Immunofix Electrophor 02/17/19 02/18/19 02/18/19 23:45 00:04 01:03 WBC RBC Hgb Hct MCV MCH MCHC RDW Plt Count Seg Neuts % (Manual) Lymphocytes % (Manual) Nucleated RBC % Seg Neutrophils # Man Lymphocytes # (Manual) PT INR POC ABG pH POC ABG pCO2 POC ABG pO2 ABG Hemoglobin Oxyhemoglobin Sodium Potassium Chloride Carbon Dioxide BUN Creatinine Glucose POC Glucose 65 L 68 L 49 L Hemoglobin A1c Lactic Acid Calcium Total Bilirubin Ammonia Total Creatine Kinase Troponin T Total Protein Albumin Bcevg-2-Fieczutns Beta Globulins Gamma Globulins Abnorm Protein Band 1 Abnorm Protein Band 2 PEP Interpretation Cholesterol LDL Cholesterol Direct HDL Cholesterol TSH Urine WBC (Auto) Urine Creatinine Urine Total Protein Immunofix Electrophor 02/18/19 02/18/19 02/18/19 01:46 03:43 03:55 WBC RBC Hgb Hct MCV MCH MCHC RDW Plt Count Seg Neuts % (Manual) Lymphocytes % (Manual) Nucleated RBC % Seg Neutrophils # Man Lymphocytes # (Manual) PT INR POC ABG pH 6.899 L POC ABG pCO2 POC ABG pO2 ABG Hemoglobin Oxyhemoglobin Sodium Potassium Chloride Carbon Dioxide BUN Creatinine Glucose POC Glucose 109 H 122 H Hemoglobin A1c Lactic Acid Calcium Total Bilirubin Ammonia Total Creatine Kinase Troponin T Total Protein Albumin Ojrev-0-Kngutxlsb Beta Globulins Gamma Globulins Abnorm Protein Band 1 Abnorm Protein Band 2 PEP Interpretation Cholesterol LDL Cholesterol Direct HDL Cholesterol TSH Urine WBC (Auto) Urine Creatinine Urine Total Protein Immunofix Electrophor 02/18/19 02/18/19 02/18/19 05:15 05:15 05:15 WBC 45.7 H* RBC 2.08 L Hgb 6.6 L Hct 24.4 L MCV 117 H MCH MCHC 27 L RDW 18.1 H Plt Count 76 L Seg Neuts % (Manual) Lymphocytes % (Manual) Nucleated RBC % Seg Neutrophils # Man Lymphocytes # (Manual) PT INR POC ABG pH POC ABG pCO2 POC ABG pO2 ABG Hemoglobin Oxyhemoglobin Sodium Potassium 5.2 H D Chloride 93.5 L Carbon Dioxide 7 L* D BUN 55 H Creatinine 3.3 H Glucose POC Glucose Hemoglobin A1c Lactic Acid 21.60 H* Calcium 7.5 L Total Bilirubin Ammonia Total Creatine Kinase Troponin T Total Protein Albumin Zkysj-5-Gougzavzs Beta Globulins Gamma Globulins Abnorm Protein Band 1 Abnorm Protein Band 2 PEP Interpretation Cholesterol LDL Cholesterol Direct HDL Cholesterol TSH Urine WBC (Auto) Urine Creatinine Urine Total Protein Immunofix Electrophor 02/18/19 02/18/19 02/18/19 06:26 07:30 07:47 WBC RBC Hgb Hct MCV MCH MCHC RDW Plt Count Seg Neuts % (Manual) Lymphocytes % (Manual) Nucleated RBC % Seg Neutrophils # Man Lymphocytes # (Manual) PT INR POC ABG pH 6.931 L POC ABG pCO2 27.1 L POC ABG pO2 386 H ABG Hemoglobin Oxyhemoglobin Sodium Potassium Chloride Carbon Dioxide BUN Creatinine Glucose POC Glucose 56 L 140 H Hemoglobin A1c Lactic Acid Calcium Total Bilirubin Ammonia Total Creatine Kinase Troponin T Total Protein Albumin Gnezw-9-Scjcmykwn Beta Globulins Gamma Globulins Abnorm Protein Band 1 Abnorm Protein Band 2 PEP Interpretation Cholesterol LDL Cholesterol Direct HDL Cholesterol TSH Urine WBC (Auto) Urine Creatinine Urine Total Protein Immunofix Electrophor 02/18/19 02/18/19 09:25 13:31 WBC RBC Hgb Hct MCV MCH MCHC RDW Plt Count Seg Neuts % (Manual) Lymphocytes % (Manual) Nucleated RBC % Seg Neutrophils # Man Lymphocytes # (Manual) PT INR POC ABG pH 6.781 L POC ABG pCO2 25.0 L POC ABG pO2 224 H ABG Hemoglobin Oxyhemoglobin Sodium Potassium Chloride Carbon Dioxide BUN Creatinine Glucose POC Glucose 136 H Hemoglobin A1c Lactic Acid Calcium Total Bilirubin Ammonia Total Creatine Kinase Troponin T Total Protein Albumin Wmiic-3-Jcbrlduzs Beta Globulins Gamma Globulins Abnorm Protein Band 1 Abnorm Protein Band 2 PEP Interpretation Cholesterol LDL Cholesterol Direct HDL Cholesterol TSH Urine WBC (Auto) Urine Creatinine Urine Total Protein Immunofix Electrophor Chest x-ray: image reviewed ([facility] [place]) Allied health notes reviewed: nursing
[2019-02-18] MEDS ORDERED: ALBUMIN HUMAN 25% (25 GM/100 ML) INJ IV PRN (15:00)
--- NOTE | 2019-02-18 15:08 | Progress Note ---
Assessment and Plan 68 yo F s/p incision and drainage with debridement of left thigh necrotizing fasciitis, POD 3 1. septic shock 2. Necrotizing fasciitis of left thigh/groin 3. morbid obesity 4. poorly controlled DM 5. protein calorie malnutrition - albumin 2.4 6. anemia 7. JESÚS on HD Plan: 1. Neuro - Currently patient not responsive off sedation. 2. CV - wean pressors as tolerated - currently on 4 pressors. WBC remains elevat ed, Lactate >21, ph 6.7. 3. Resp - vent management per ICU. 4. GI - PPI for GI ppx. NGT to LIWS. Recommend discontinuing TF as patient is on 4 pressors. Lactate >20, ?intestinal ischemia 5. - lynch. HD per nephro 6. ID - abx per ID. Wound cultures pending. Blood cultures pending. Dressing changes BID with dakins per nursing. 7. Endo - strict glucose control 8. FEN - daily electrolytes, gentle IVF. NPO Patient now on 4 pressors with worsening of all lab parameters. Wound is still mostly clean without any evidence of further progression of necrotizing fasciitis. There is minimal added benefit to further debridement and patient is too unstable for the operating room for any procedure. Recommend continuing management as above and supportive care. Condition: Critical Prognosis: Extremely poor Recommend family meeting to discuss comfort measures. Thank you, please call with questions. Plan discussed with patient's RN Subjective Date of service: 02/18/19 Narrative: Pt seen and examined. Not responsive on vent, off sedation. Pressor requirements have increased since yesterday. + Fevers. Objective Vital Signs - 12hr 02/18/19 02/18/19 02/18/19 03:15 03:31 03:45 Temperature Pulse Rate 86 86 88 Pulse Rate [ Anterior Bilateral Throughout] Pulse Rate [ Bilateral Throughout] Pulse Rate [ From Monitor] Respiratory 14 15 14 Rate Respiratory Rate [Anterior Bilateral Throughout] Respiratory Rate [Bilateral Throughout] Blood Pressure 81/38 89/47 95/62 O2 Sat by Pulse 95 92 90 Oximetry 02/18/19 02/18/19 02/18/19 04:00 04:01 04:13 Temperature 99.8 F H Pulse Rate 88 88 88 Pulse Rate [ Anterior Bilateral Throughout] Pulse Rate [ Bilateral Throughout] Pulse Rate [ 88 From Monitor] Respiratory 15 15 Rate Respiratory Rate [Anterior Bilateral Throughout] Respiratory Rate [Bilateral Throughout] Blood Pressure 100/46 95/62 O2 Sat by Pulse 85 85 89 Oximetry 02/18/19 02/18/19 02/18/19 04:15 04:30 04:45 Temperature Pulse Rate 89 90 87 Pulse Rate [ Anterior Bilateral Throughout] Pulse Rate [ Bilateral Throughout] Pulse Rate [ From Monitor] Respiratory 30 H 30 H 30 H Rate Respiratory Rate [Anterior Bilateral Throughout] Respiratory Rate [Bilateral Throughout] Blood Pressure 99/52 94/60 102/45 O2 Sat by Pulse 93 100 96 Oximetry 02/18/19 02/18/19 02/18/19 05:01 05:15 05:30 Temperature Pulse Rate 87 87 87 Pulse Rate [ Anterior Bilateral Throughout] Pulse Rate [ Bilateral Throughout] Pulse Rate [ From Monitor] Respiratory 30 H 30 H 30 H Rate Respiratory Rate [Anterior Bilateral Throughout] Respiratory Rate [Bilateral Throughout] Blood Pressure 102/45 100/44 94/46 O2 Sat by Pulse 96 93 92 Oximetry 02/18/19 02/18/19 02/18/19 05:45 06:01 06:15 Temperature Pulse Rate 88 87 85 Pulse Rate [ Anterior Bilateral Throughout] Pulse Rate [ Bilateral Throughout] Pulse Rate [ From Monitor] Respiratory 30 H 30 H 31 H Rate Respiratory Rate [Anterior Bilateral Throughout] Respiratory Rate [Bilateral Throughout] Blood Pressure 100/44 107/39 95/49 O2 Sat by Pulse 93 90 Oximetry 02/18/19 02/18/19 02/18/19 06:30 06:45 07:01 Temperature Pulse Rate 85 85 86 Pulse Rate [ Anterior Bilateral Throughout] Pulse Rate [ Bilateral Throughout] Pulse Rate [ From Monitor] Respiratory 31 H 21 30 H Rate Respiratory Rate [Anterior Bilateral Throughout] Respiratory Rate [Bilateral Throughout] Blood Pressure 86/47 88/54 85/37 O2 Sat by Pulse 90 87 82 L Oximetry 02/18/19 02/18/19 02/18/19 07:15 07:25 07:30 Temperature Pulse Rate 87 90 87 Pulse Rate [ Anterior Bilateral Throughout] Pulse Rate [ Bilateral Throughout] Pulse Rate [ From Monitor] Respiratory 30 H 27 H Rate Respiratory Rate [Anterior Bilateral Throughout] Respiratory Rate [Bilateral Throughout] Blood Pressure 96/56 92/60 95/51 O2 Sat by Pulse 81 L 90 89 Oximetry 02/18/19 02/18/19 02/18/19 07:45 07:53 08:00 Temperature 99.7 F H Pulse Rate 87 Pulse Rate [ Anterior Bilateral Throughout] Pulse Rate [ 90 Bilateral Throughout] Pulse Rate [ 87 From Monitor] Respiratory 30 H 30 H Rate Respiratory Rate [Anterior Bilateral Throughout] Respiratory 30 H Rate [Bilateral Throughout] Blood Pressure 100/52 O2 Sat by Pulse 89 95 Oximetry 02/18/19 02/18/19 02/18/19 08:01 08:15 08:30 Temperature Pulse Rate 88 218 H 88 Pulse Rate [ Anterior Bilateral Throughout] Pulse Rate [ Bilateral Throughout] Pulse Rate [ From Monitor] Respiratory 31 H 23 26 H Rate Respiratory Rate [Anterior Bilateral Throughout] Respiratory Rate [Bilateral Throughout] Blood Pressure 120/13 100/52 108/60 O2 Sat by Pulse 90 100 100 Oximetry 02/18/19 02/18/19 02/18/19 08:45 09:00 09:15 Temperature Pulse Rate 86 87 86 Pulse Rate [ Anterior Bilateral Throughout] Pulse Rate [ Bilateral Throughout] Pulse Rate [ From Monitor] Respiratory 18 29 H 30 H Rate Respiratory Rate [Anterior Bilateral Throughout] Respiratory Rate [Bilateral Throughout] Blood Pressure 80/59 80/59 80/59 O2 Sat by Pulse 84 Oximetry 02/18/19 02/18/19 02/18/19 09:30 09:45 10:01 Temperature Pulse Rate 86 91 H 85 Pulse Rate [ Anterior Bilateral Throughout] Pulse Rate [ Bilateral Throughout] Pulse Rate [ From Monitor] Respiratory 30 H 30 H 30 H Rate Respiratory Rate [Anterior Bilateral Throughout] Respiratory Rate [Bilateral Throughout] Blood Pressure 94/23 94/23 91/16 O2 Sat by Pulse 100 98 100 Oximetry 02/18/19 02/18/19 02/18/19 10:15 10:31 12:00 Temperature 96.7 F L Pulse Rate 85 86 Pulse Rate [ Anterior Bilateral Throughout] Pulse Rate [ Bilateral Throughout] Pulse Rate [ From Monitor] Respiratory 30 H Rate Respiratory Rate [Anterior Bilateral Throughout] Respiratory Rate [Bilateral Throughout] Blood Pressure 91/16 105/40 O2 Sat by Pulse 98 99 Oximetry 02/18/19 02/18/19 13:28 13:41 Temperature Pulse Rate 90 Pulse Rate [ 90 Anterior Bilateral Throughout] Pulse Rate [ Bilateral Throughout] Pulse Rate [ From Monitor] Respiratory Rate Respiratory 30 H Rate [Anterior Bilateral Throughout] Respiratory Rate [Bilateral Throughout] Blood Pressure O2 Sat by Pulse 98 Oximetry - General physical appearance Narrative Exam: Gen: Intubated, unresponsive. Neuro: No corneal or gag reflex. Nor responsive to painful stimulus CV: s1, S2+ resp; on vent Abd: soft, NT, ND, obese. Ext; L thigh dressing c/d/i. Wound with minimal purulent fluid but mostly clean. No odor. Periwound skin unremarkable. - Labs 02/18/19 05:15 02/18/19 05:15 Diabetes panel 02/17/19 02/18/19 Range/Units 23:37 05:15 Sodium 140 (137-145) mmol/L Potassium 5.2 H D (3.6-5.0) mmol/L Chloride 93.5 L (98-107) mmol/L Carbon Dioxide 7 L* D (22-30) mmol/L BUN 55 H (7-17) mg/dL Creatinine 3.3 H (0.7-1.2) mg/dL Glucose 77 95 (65-100) mg/dL Calcium 7.5 L (8.4-10.2) mg/dL Calcium panel 02/18/19 Range/Units 05:15 Calcium 7.5 L (8.4-10.2) mg/dL Pituitary panel 02/17/19 02/18/19 Range/Units 23:37 05:15 Sodium 140 (137-145) mmol/L Potassium 5.2 H D (3.6-5.0) mmol/L Chloride 93.5 L (98-107) mmol/L Carbon Dioxide 7 L* D (22-30) mmol/L BUN 55 H (7-17) mg/dL Creatinine 3.3 H (0.7-1.2) mg/dL Glucose 77 95 (65-100) mg/dL Calcium 7.5 L (8.4-10.2) mg/dL Adrenal panel 02/17/19 02/18/19 Range/Units 23:37 05:15 Sodium 140 (137-145) mmol/L Potassium 5.2 H D (3.6-5.0) mmol/L Chloride 93.5 L (98-107) mmol/L Carbon Dioxide 7 L* D (22-30) mmol/L BUN 55 H (7-17) mg/dL Creatinine 3.3 H (0.7-1.2) mg/dL Glucose 77 95 (65-100) mg/dL Calcium 7.5 L (8.4-10.2) mg/dL
--- NOTE | 2019-02-18 15:46 | Progress Note ---
Assessment and Plan Assessment and plan: 68-year-old female presents septic shock acute respiratory failure continues to decompensate despite best efforts. Remains hypotensive unresponsive. The high probability of a clinically significant, sudden or life threatening deterioration of the [] system(s) required my full and direct attention, int ervention and personal management. The aggregate critical care time was [] minutes. This time is in addition to time spent performing reported procedures but includes the following: [x] Data Review and interpretation [x] Patient assessment and monitoring of vital signs [x] Documentation [x] Medication orders and management also famukly conference for 20 min Total Time Spent with Patient (Minutes): 33 - Patient Problems (1) JESÚS (acute kidney injury) Current Visit: Yes Status: Acute Plan to address problem: Patient renal failure appears to be progressively getting worse. Agree most likely secondary to sepsis and prerenal azotemia. Prognosis grave. (2) Acute encephalopathy Current Visit: Yes Status: Acute Plan to address problem: Encephalopathy multifactorial secondary to sepsis and most likely anoxia. Explained to the family and long discussion about the extremely poor prognosis. (3) Acute respiratory failure Current Visit: Yes Status: Acute Plan to address problem: Unable to wean patient. Patient continues to decompensate unresponsive intubated. Unable to wean secondary to sepsis spoke to Gen. surgery also concern for ischemic bowel. (4) Necrotizing fasciitis Current Visit: Yes Status: Acute Plan to address problem: Presentation also concerning for ischemic bowel. Spoke with general surgery also spoke with infectious disease both point extremely poor and diarrhea prognosis. I also relayed that to the family. They understand. Considering DO NOT RESUSCITATE as well. Daughter wants to speak to other family member. Told them that no other option if patient heart stops beating. She is already on pressor support and intubated. Standard family conference. (5) Septic shock Current Visit: Yes Status: Acute Plan to address problem: septic shock is resolving weaning pressors. (6) IDDM (insulin dependent diabetes mellitus) Current Visit: Yes Status: Chronic Plan to address problem: [place] has excellent control of diabetes. Titrate accordingly. History Interval history: Patient continues to decompensate. Remains hypotensive despite 3 pressors. Patient also persistent fever. Remains altered unresponsive. Patient also intubated without sedation. Unable to breathe over the vent. Difficulty weaning. Worsening sepsis. Did provide family conference with daughter and brother. Did discuss the extremely poor prognosis and why they have an understanding. Hospitalist Physical - Constitutional Vitals: Temp Pulse Resp BP Pulse Ox 96.7 F L 90 30 H 105/40 98 02/18/19 12:00 02/18/19 13:41 02/18/19 13:41 02/18/19 10:31 02/18/19 13:28 General appearance: Present: no acute distress, well-nourished - Respiratory Respiratory effort: other (intubated nonsedated. Unresponsive.) Respiratory: bilateral: diminished, rales, rhonchi - Cardiovascular Heart rate: 101 Rhythm: other (tachycardia) - Extremities Extremity abnormal: edema, other (nonverbal extremities obtunded.) - Abdominal General gastrointestinal: soft, hypoactive bowel sounds, other (surgical site appears clean.), no hepatomegaly Results - Labs CBC & Chem 7: 02/18/19 05:15 02/18/19 05:15 Labs: Laboratory Last Values WBC 45.7 K/mm3 (4.5-11.0) H* 02/18/19 05:15 RBC 2.08 M/mm3 (3.65-5.03) L 02/18/19 05:15 Hgb 6.6 gm/dl (10.1-14.3) L 02/18/19 05:15 Hct 24.4 % (30.3-42.9) L 02/18/19 05:15 MCV 117 fl (79-97) H 02/18/19 05:15 MCH 32 pg (28-32) 02/18/19 05:15 MCHC 27 % (30-34) L 02/18/19 05:15 RDW 18.1 % (13.2-15.2) H 02/18/19 05:15 Plt Count 76 K/mm3 (140-440) L 02/18/19 05:15 Lymph % (Auto) Antenna Specialist 02/10/19 09:28 Gila % (Auto) Antenna Specialist 02/10/19 09:28 Eos % (Auto) Antenna Specialist 02/10/19 09:28 Baso % (Auto) Antenna Specialist 02/10/19 09:28 Lymph # Antenna Specialist 02/10/19 09:28 Gila # Antenna Specialist 02/10/19 09:28 Eos # Antenna Specialist 02/10/19 09:28 Baso # Antenna Specialist 02/10/19 09:28 Add Manual Diff Complete 02/16/19 05:15 Total Counted 100 02/16/19 05:15 Seg Neutrophils % Antenna Specialist 02/13/19 05:12 Seg Neuts % (Manual) 82.0 % (40.0-70.0) H 02/16/19 05:15 Band Neutrophils % 4.0 % 02/16/19 05:15 Lymphocytes % (Manual) 7.0 % (13.4-35.0) L 02/16/19 05:15 Reactive Lymphs % (Man) 0 % 02/16/19 05:15 Monocytes % (Manual) 1.0 % (0.0-7.3) 02/16/19 05:15 Eosinophils % (Manual) 0 % (0.0-4.3) 02/16/19 05:15 Basophils % (Manual) 0 % (0.0-1.8) 02/16/19 05:15 Metamyelocytes % 5.0 % 02/16/19 05:15 Myelocytes % 1.0 % 02/16/19 05:15 Promyelocytes % 0 % 02/16/19 05:15 Blast Cells % 0 % 02/16/19 05:15 Nucleated RBC % 6.0 % (0.0-0.9) H 02/16/19 05:15 Seg Neutrophils # Antenna Specialist 02/10/19 09:28 Seg Neutrophils # Man 38.2 K/mm3 (1.8-7.7) H 02/16/19 05:15 Band Neutrophils # 1.9 K/mm3 02/16/19 05:15 Lymphocytes # (Manual) 3.3 K/mm3 (1.2-5.4) 02/16/19 05:15 Abs React Lymphs (Man) 0.0 K/mm3 02/16/19 05:15 Monocytes # (Manual) 0.5 K/mm3 (0.0-0.8) 02/16/19 05:15 Eosinophils # (Manual) 0.0 K/mm3 (0.0-0.4) 02/16/19 05:15 Basophils # (Manual) 0.0 K/mm3 (0.0-0.1) 02/16/19 05:15 Metamyelocytes # 2.3 K/mm3 02/16/19 05:15 Myelocytes # 0.5 K/mm3 02/16/19 05:15 Promyelocytes # 0.0 K/mm3 02/16/19 05:15 Blast Cells # 0.0 K/mm3 02/16/19 05:15 Pathologist Review 02/16/19 05:15 WBC Morphology Not Reportable 02/13/19 05:12 Hypersegmented Neuts Not Reportable 02/16/19 05:15 Hyposegmented Neuts Not Reportable 02/16/19 05:15 Hypogranular Neuts Not Reportable 02/16/19 05:15 Smudge Cells Not Reportable 02/16/19 05:15 Toxic Granulation Not Reportable 02/16/19 05:15 Toxic Vacuolation Not Reportable 02/16/19 05:15 Dohle Bodies Not Reportable 02/16/19 05:15 Pelger-Huet Anomaly Not Reportable 02/16/19 05:15 Casey Rods Not Reportable 02/16/19 05:15 Platelet Estimate Consistent w auto 02/16/19 05:15 Clumped Platelets Not Reportable 02/16/19 05:15 Plt Clumps, EDTA Not Reportable 02/16/19 05:15 Large Platelets Not Reportable 02/16/19 05:15 Giant Platelets Not Reportable 02/16/19 05:15 Platelet Satelliting Not Reportable 02/16/19 05:15 Plt Morphology Comment Not Reportable 02/16/19 05:15 RBC Morphology Not Reportable 02/16/19 05:15 Dimorphic RBCs Not Reportable 02/16/19 05:15 Polychromasia Rare 02/16/19 05:15 Hypochromasia Few 02/16/19 05:15 Poikilocytosis Few 02/16/19 05:15 Anisocytosis 1+ 02/16/19 05:15 Microcytosis Few 02/16/19 05:15 Macrocytosis Not Reportable 02/16/19 05:15 Spherocytes Not Reportable 02/16/19 05:15 Pappenheimer Bodies Not Reportable 02/16/19 05:15 Sickle Cells Not Reportable 02/16/19 05:15 Target Cells Few 02/16/19 05:15 Tear Drop Cells Rare 02/16/19 05:15 Ovalocytes Not Reportable 02/16/19 05:15 Helmet Cells Not Reportable 02/16/19 05:15 [place] Bodies Not Reportable 02/16/19 05:15 Blackburn Rings Not Reportable 02/16/19 05:15 Karina Cells Not Reportable 02/16/19 05:15 Bite Cells Not Reportable 02/16/19 05:15 Crenated Cell Not Reportable 02/16/19 05:15 Elliptocytes Not Reportable 02/16/19 05:15 Acanthocytes (Spur) Not Reportable 02/16/19 05:15 Rouleaux Not Reportable 02/16/19 05:15 Hemoglobin C Crystals Not Reportable 02/16/19 05:15 Schistocytes Not Reportable 02/16/19 05:15 Malaria parasites Not Reportable 02/16/19 05:15 Emanuel Bodies Not Reportable 02/16/19 05:15 Hem Pathologist Commnt Sent to pathology 02/16/19 05:15 PT 18.3 Sec. (12.2-14.9) H 02/16/19 05:15 INR 1.54 (0.87-1.13) H 02/16/19 05:15 APTT 36.0 Sec. (24.2-36.6) 02/09/19 09:16 POC ABG pH 6.781 (7.35-7.45) L 02/18/19 13:31 ABG pH 7.368 pH Units (7.350-7.450) 02/14/19 18:07 POC ABG pCO2 25.0 (35-45) L 02/18/19 13:31 ABG pCO2 44.1 mm Hg 02/14/19 18:07 POC ABG pO2 224 (80-105) H 02/18/19 13:31 ABG pO2 86.4 mm Hg (80.0-90.0) 02/14/19 18:07 POC ABG HCO3 3.7 (22-26 mml/L) 02/18/19 13:31 ABG HCO3 24.8 mmol/L (20.0-26.0) 02/14/19 18:07 POC ABG Total CO2 < 5 (23-27mmol/L) 02/18/19 13:31 POC ABG O2 Sat 99 02/18/19 13:31 ABG O2 Saturation 96.7 % (95.0-99.0) 02/14/19 18:07 ABG O2 Content 10.7 (0.0-44) 02/14/19 18:07 POC ABG Base Excess < -30 ((-2) - (+3)mmol/L) 02/18/19 13:31 ABG Base Excess -0.5 mmol/L (-2.0-3.0) 02/14/19 18:07 ABG Hemoglobin 8.0 gm/dl (12.0-16.0) L 02/14/19 18:07 ABG Carboxyhemoglobin 2.6 % (0.0-5.0) 02/14/19 18:07 ABG Methemoglobin 0.3 % (0.0-1.5) 02/14/19 18:07 Oxyhemoglobin 93.9 % (95.0-99.0) L 02/14/19 18:07 FiO2 25 % 02/18/19 13:31 Sodium 140 mmol/L (137-145) 02/18/19 05:15 Potassium 5.2 mmol/L (3.6-5.0) H D 02/18/19 05:15 Chloride 93.5 mmol/L (98-107) L 02/18/19 05:15 Carbon Dioxide 7 mmol/L (22-30) L* D 02/18/19 05:15 Anion Gap 45 mmol/L 02/18/19 05:15 BUN 55 mg/dL (7-17) H 02/18/19 05:15 Creatinine 3.3 mg/dL (0.7-1.2) H 02/18/19 05:15 Estimated GFR 17 ml/min 02/18/19 05:15 BUN/Creatinine Ratio 17 % 02/18/19 05:15 Glucose 95 mg/dL (65-100) 02/18/19 05:15 POC Glucose 82 (70-105) 02/18/19 13:46 Hemoglobin A1c 8.5 % (4-6) H 02/09/19 23:24 Lactic Acid 21.60 mmol/L (0.7-2.0) H* 02/18/19 05:15 Calcium 7.5 mg/dL (8.4-10.2) L 02/18/19 05:15 Phosphorus 4.10 mg/dL (2.5-4.5) 02/09/19 12:47 Total Bilirubin 3.10 mg/dL (0.1-1.2) H 02/10/19 06:39 AST 39 units/L (5-40) 02/10/19 06:39 ALT 12 units/L (7-56) 02/10/19 06:39 Alkaline Phosphatase 112 units/L (35-129) 02/10/19 06:39 Ammonia 61.0 umol/L (25-60) H 02/09/19 09:16 Total Creatine Kinase 264 units/L (30-135) H 02/09/19 09:16 CK-MB (CK-2) 2.1 ng/mL (0.0-4.0) 02/09/19 09:16 CK-MB (CK-2) Rel Index 0.7 (0-4) 02/09/19 09:16 Troponin T 0.073 ng/mL (0.00-0.029) H 02/09/19 09:16 Serum Total Protein 7.8 g/dL (6.1-8.1) 02/09/19 19:03 Total Protein 8.3 g/dL (6.3-8.2) H 02/10/19 06:39 Albumin 2.4 g/dL (3.9-5) L 02/10/19 06:39 Albumin/Globulin Ratio 0.4 % 02/10/19 06:39 Jmqhc-[id number] 0.5 g/dL (0.2-0.3) H 02/09/19 19:03 Cbvkl-4-Rqxlxjwmy 0.7 g/dL (0.5-0.9) 02/09/19 19:03 Beta Globulins 2.8 g/dL (0.2-0.5) H 02/09/19 19:03 Gamma Globulins 0.7 g/dL (0.8-1.7) L 02/09/19 19:03 Abnorm Protein Band 1 2.7 g/dL H 02/09/19 19:03 Abnorm Protein Band 2 0.3 g/dL H 02/09/19 19:03 PEP Interpretation see below H 02/09/19 19:03 Triglycerides 65 mg/dL (2-149) 02/09/19 09:16 Cholesterol 47 mg/dL (50-199) L 02/09/19 09:16 LDL Cholesterol Direct 13 mg/dL (50-130) L 02/09/19 09:16 HDL Cholesterol 27 mg/dL (40-59) L 02/09/19 09:16 Cholesterol/HDL Ratio 1.74 % 02/09/19 09:16 Procalcitonin 11.74 ng/mL (<0.15) 02/11/19 16:15 TSH 5.570 mlU/mL (0.270-4.200) H 02/09/19 09:16 Free T4 0.85 ng/dL (0.76-1.46) 02/09/19 09:16 Urine Color Shamika (Yellow) 02/09/19 14:30 Urine Turbidity Cloudy (Clear) 02/09/19 14:30 Urine pH 5.0 (5.0-7.0) 02/09/19 14:30 Ur Specific [place] 1.015 (1.003-1.030) 02/09/19 14:30 Urine Protein 30 mg/dl mg/dL (Negative) 02/09/19 14:30 Urine Glucose (UA) Neg mg/dL (Negative) 02/09/19 14:30 Urine Ketones Neg mg/dL (Negative) 02/09/19 14:30 Urine Blood Sm (Negative) 02/09/19 14:30 Urine Nitrite Neg (Negative) 02/09/19 14:30 Urine Bilirubin Neg (Negative) 02/09/19 14:30 Urine Urobilinogen < 2.0 mg/dL (<2.0) 02/09/19 14:30 Ur Leukocyte Esterase Mod (Negative) 02/09/19 14:30 Urine WBC (Auto) 32.0 /HPF (0.0-6.0) H 02/09/19 14:30 Urine RBC (Auto) 29.0 /HPF (0.0-6.0) 02/09/19 14:30 U Epithel Cells (Auto) 3.0 /HPF (0-13.0) 02/09/19 14:30 Urine Bacteria (Auto) 3+ /HPF (Negative) 02/09/19 14:30 Urine WBC Clumps 2+ /HPF 02/09/19 14:30 Urine Mucus Few /HPF 02/09/19 14:30 Urine Creatinine 162.4 mg/dL (0.1-20.0) H 02/09/19 14:30 Protein/Creatinin Ratio 0.30 02/09/19 14:30 Urine Sodium 38 mmol/L 02/09/19 14:30 Urine Total Protein 49 mg/dL (5-11.8) H 02/09/19 14:30 Nasal Screen MRSA (PCR) Negative (Negative) 02/12/19 Unknown Random Vancomycin 11.9 ug/mL (0-40.0) 02/17/19 05:31 Urine Opiates Screen Presumptive negative 02/09/19 14:30 Urine Methadone Screen Presumptive negative 02/09/19 14:30 Ur Barbiturates Screen Presumptive negative 02/09/19 14:30 Ur Phencyclidine Scrn Presumptive negative 02/09/19 14:30 Ur Amphetamines Screen Presumptive negative 02/09/19 14:30 U Benzodiazepines Scrn Presumptive negative 02/09/19 14:30 Urine Cocaine Screen Presumptive negative 02/09/19 14:30 U Marijuana (THC) Screen Presumptive negative 02/09/19 14:30 Drugs of Abuse Note Disclamer 02/09/19 14:30 Plasma/Serum Alcohol < 0.01 % (0-0.07) 02/09/19 09:16 Immunofix Electrophor see below H 02/09/19 19:03 Proteinase 3 (PR3) Ab <1.0 AI (<1.0) 02/09/19 12:47 Myeloperoxidase Ab <1.0 AI (<1.0) 02/09/19 12:47 Complement C3 123 mg/dL (83-193) 02/09/19 12:47 Complement C4 37 mg/dL (15-57) 02/09/19 12:47 Hepatitis A IgM Ab Non-reactive (NonReactive) 02/09/19 12:47 Hep Bs Antigen Non-reactive (Negative) 02/09/19 12:47 Hep B Core IgM Ab Non-reactive (NonReactive) 02/09/19 12:47 Hepatitis C Antibody Non-reactive (NonReactive) 02/09/19 12:47 Influenza A (Rapid) Negative (Negative) 02/12/19 Unknown Influenza A (RT-PCR) Negative (Negative) 02/12/19 Unknown Influenza B (Rapid) Negative (Negative) 02/12/19 Unknown Influenza B (RT-PCR) Negative (Negative) 02/12/19 Unknown Urine Legionella Ag Not detected (Not Detected) 02/12/19 15:23 - Imaging and Cardiology Chest x-ray: image reviewed CT scan - abdomen: report reviewed, image reviewed Active Medications - Current Medications Current Medications: Generic Name Dose Route Start Last Admin Trade Name Freq PRN Reason Stop Dose Admin Acetaminophen 650 mg 02/09/19 22:59 02/17/19 22:04 Tylenol PO 650 mg Q4H PRN Administration Pain MILD(1-3)/Fever >100.5/ARREDONDO Albumin Human 50 gm 02/18/19 14:00 Alburx 25% (Albumin) IV TREVA YISEL Albumin Human 25 gm 02/18/19 15:00 Alburx 25% (Albumin) IV TREVA PRN give q 30min prn sbp <110 Albuterol 1.25 mg 02/10/19 01:36 Proventil IH TIDRT PRN Shortness Of Breath Albuterol/Ipratropium 1 ampul 02/10/19 14:00 02/18/19 13:45 Duoneb *Not For Prn Use* IH 1 ampul Q6HRT YISEL Administration Lipase/Protease/Amylase 1 each 02/17/19 07:[address] 10,500 Unit FEEDTUBE PRN PRN For Clogged Feeding Tube Dextrose 50 ml 02/13/19 18:56 02/18/19 14:58 D50w (25gm) Syringe IV 50 ml Q30MIN PRN Administration Hypoglycemia Protocol Famotidine 20 mg 02/16/19 10:00 02/18/19 09:30 Pepcid IV 20 mg DAILY YISEL Administration Heparin Sodium (Porcine) 5,000 unit 02/10/19 22:00 02/18/19 10:55 Heparin SUB-Q 5,000 unit Q12HR YISEL Administration Hydromorphone HCl 0.25 mg 02/09/19 22:59 Dilaudid IV Q3H PRN Pain, Moderate (4-6) Hydrophilic Ointment 1 applic 02/15/19 18:50 Vaseline Lip Therapy TP Q2HR PRN Dry Lips MEROPENEM/NS 1 GRAM/100 ML 1 gram in 100 mls @ 100 mls/hr 02/15/19 16:00 02/18/19 10:59 Merrem/Ns 1 Gram/100 Ml IV 100 mls/hr Q24HR YISEL Administration Protocol Clindamycin HCl 900 mg in 50 mls @ 100 mls/hr 02/15/19 17:00 02/18/19 13:59 Cleocin 900 Mg/50 Ml IV 100 mls/hr Q8HR YISEL Administration Protocol Fentanyl Citrate 2,000 mcg in 100 mls @ 8.4 mls/hr 02/15/19 19:00 02/18/19 04:03 Fentanyl Drip Premix IV 0 mcg/kg/hr TITR YISEL 0 mls/hr Titration Protocol 1 MCG/KG/HR Propofol 1,000 mg in 100 mls @ 5.04 mls/hr 02/15/19 19:00 02/16/19 07:29 Diprivan 10 Mg/Ml IV 0 mcg/kg/min TITR YISEL 0 mls/hr Titration Protocol 5 MCG/KG/MIN Norepinephrine 8 mg/ Sodium 250 mls @ 3.75 mls/hr 02/15/19 23:45 02/18/19 13:10 Chloride IV 30 mcg/min TITR YISEL 56.25 mls/hr Administration Protocol 2 MCG/MIN Fluconazole 200 mg in 100 mls @ 100 mls/hr 02/16/19 10:00 02/18/19 09:30 Diflucan IV 100 mls/hr Q24HR YISEL Administration Protocol Vasopressin 20 unit/ Sodium 101 mls @ 9.09 mls/hr 02/16/19 22:00 02/18/19 10:05 Chloride IV 0.03 units/min TITR YISEL 9.09 mls/hr Administration Protocol 0.03 UNITS/MIN Phenylephrine HCl 100 mg/ 100 mls @ 3 mls/hr 02/17/19 07:45 02/18/19 13:09 Sodium Chloride IV 360 mcg/min TITR YISEL 21.6 mls/hr Administration Protocol 50 MCG/MIN Sodium Bicarbonate 150 meq/ 1,150 mls @ 125 mls/hr 02/17/19 20:45 02/18/19 06:31 Dextrose IV 02/20/19 05:56 125 mls/hr DIRECT YISEL Administration Dopamine HCl/Dextrose 800 mg in 250 mls @ 31.5 mls/hr 02/18/19 13:00 02/18/19 12:58 Intropin Drip 800 Mg/D5w 250 Ml IV 10 mcg/kg/min TITR YISEL 31.5 mls/hr Administration Protocol 10 MCG/KG/MIN Sodium Chloride 100 mls @ 999 mls/hr 02/18/19 14:03 Nacl 0.9% IV TREVA PRN Hypotension Insulin Glargine 10 units 02/16/19 11:00 02/18/19 09:29 Lantus SUB-Q Not Given [facility]DIAB [facility] Insulin Human Lispro 0 unit 02/13/19 19:00 02/18/19 13:17 Humalog SUB-Q Not Given Q6HR [facility] Protocol Multi-Ingred Cream/Lotion/Oil/Oint 1 applic 02/15/19 18:50 02/15/19 22:08 Artificial Tears Ophth Oint OU 1 applic Q4HR PRN Administration Dry Eye(s) Ondansetron HCl 4 mg 02/09/19 22:59 Zofran IV Q8H PRN Nausea And Vomiting Oxycodone/Acetaminophen 1 tab 02/09/19 22:59 Percocet 5/325 PO Q6H PRN Pain, Moderate (4-6) Simple Syrup 30 ml 02/17/19 07:58 02/17/19 14:30 Simple Syrup FEEDTUBE 30 ml PRN PRN Administration Hypoglycemia Simple Syrup 15 ml 02/17/19 20:20 02/18/19 05:52 Simple Syrup FEEDTUBE 15 ml PRN PRN Administration Hypoglycemia Sodium Bicarbonate 325 mg 02/17/19 07:58 Sodium Bicarbonate FEEDTUBE PRN PRN For Clogged Feeding Tube Sodium Chloride 10 ml 02/10/19 10:00 02/18/19 10:55 Sodium Chloride Flush Syringe 10 Ml IV 10 ml BID YISEL Administration Sodium Chloride 10 ml 02/09/19 22:59 02/10/19 06:44 Sodium Chloride Flush Syringe 10 Ml IV 10 ml PRN PRN Administration LINE FLUSH Sodium Hypochlorite 1 applic 02/15/19 16:06 02/18/19 07:00 Dakin's Half Strength TP 1 applicatio Q12H PRN Administration Wound Care Nutrition/Malnutrition Assess - Dietary Evaluation Nutrition/Malnutrition Findings: Nutrition Notes Start: 02/14/19 11:05 Freq: Status: Active Protocol: Document 02/18/19 11:22 LP (Rec: 02/18/19 11:25 LP [id number]) Nutrition Notes Initial or Follow up Brief Note Subjective/Other Information Consult for TF. RN changed flushes to 50ml q4h. Pt on multiple pressors and at 25ml/ hr. Additional Notes PRO: 136g/day (>2.5g/kg IBW 54 .54kg), consider renal function Fluid: 1ml/kcal Nutrition Intervention Nutrition Support: Nepro at 45ml/hr Flush 50ml q4hr per MD Follow-Up By: 02/20/19 Additional Comments Follow for TF tolerance, need to increase flush?
[2019-02-18] MEDS ORDERED: SODIUM BICARBONATE 150 MEQ in DEXTROSE 5% IN WATER 1,000 ML IV SCH (16:00)
[2019-02-18 16:20] LABS: Calcium 7.6 mg/dL (8.4-10.2)
[2019-02-18] MEDS ORDERED: SODIUM CHLORIDE 0.9% 1000 ML 2,000 ML ONE (16:53)
[2019-02-18] MEDS ORDERED: EPINEPHrine 30 MG/30 ML INJ IV ONE (17:25)
[2019-02-18] MEDS ORDERED: EPINEPHrine 1:10,000 1 MG/10 ML SYRINGE ONE ×2 (17:25)
[2019-02-18 19:43] VITALS: BP 70/40
--- NOTE | 2019-02-19 05:47 | Event Note ---
Date: 02/18/19 Patient in [facility] ACLS protocol initiated from 1720 hrs through 1858 hrs Multiple codes x4 First three codes patient could be revived. 4th code patient could not be revived. Patient at 1658 hrs Cause of Cardio respiratory arrest Talked with Daughters multiple times. Patient is a Jehovah Witness. Family wanted full code.
[2019-02-19 13:23] LABS: HIV-1 Antibody Differentiation SEE SCANNED RESULT; HIV-2 Antibody Differentiation SEE SCANNED RESULT
== END 2019-02-18 23:41 | DRG 853 ==
LOC: ED 08:35 → 4A 11:31 → IMCU 02-10 13:37 → CC1 02-11 13:45
PROVIDERS: ADMIT Internal Medicine; ATTEND Internal Medicine
PROC: B54BZZA Ultrasonography of Right Lower Extremity Veins, Guidance (ICD-10-PCS; 2019-02-10)
PROC: 02H633Z Insertion of Infusion Device into Right Atrium, Percutaneous Approach (ICD-10-PCS; 2019-02-10)
PROC: B5181ZA Fluoroscopy of Superior Vena Cava using Low Osmolar Contrast, Guidance (ICD-10-PCS; 2019-02-10)
PROC: 5A1D70Z Performance of Urinary Filtration, Intermittent, Less than 6 Hours Per Day (ICD-10-PCS; 2019-02-10)
PROC: 5A09357 Assistance with Respiratory Ventilation, Less than 24 Consecutive Hours, Continuous Positive Airway Pressure (ICD-10-PCS; 2019-02-10)
PROC: 4A033R1 Measurement of Arterial Saturation, Peripheral, Percutaneous Approach (ICD-10-PCS; 2019-02-11)
PROC: 5A1D70Z Performance of Urinary Filtration, Intermittent, Less than 6 Hours Per Day (ICD-10-PCS; 2019-02-11)
PROC: 5A09357 Assistance with Respiratory Ventilation, Less than 24 Consecutive Hours, Continuous Positive Airway Pressure (ICD-10-PCS; 2019-02-11)
PROC: 5A1D70Z Performance of Urinary Filtration, Intermittent, Less than 6 Hours Per Day (ICD-10-PCS; 2019-02-12)
PROC: 5A09357 Assistance with Respiratory Ventilation, Less than 24 Consecutive Hours, Continuous Positive Airway Pressure (ICD-10-PCS; 2019-02-12)
PROC: 5A09357 Assistance with Respiratory Ventilation, Less than 24 Consecutive Hours, Continuous Positive Airway Pressure (ICD-10-PCS; 2019-02-13)
PROC: 5A1D70Z Performance of Urinary Filtration, Intermittent, Less than 6 Hours Per Day (ICD-10-PCS; 2019-02-14)
PROC: 5A09357 Assistance with Respiratory Ventilation, Less than 24 Consecutive Hours, Continuous Positive Airway Pressure (ICD-10-PCS; 2019-02-14)
PROC: 0J9M0ZZ Drainage of Left Upper Leg Subcutaneous Tissue and Fascia, Open Approach (ICD-10-PCS; principal; 2019-02-15)
PROC: 0JBM0ZZ Excision of Left Upper Leg Subcutaneous Tissue and Fascia, Open Approach (ICD-10-PCS; 2019-02-15)
PROC: 5A1945Z Respiratory Ventilation, 24-96 Consecutive Hours (ICD-10-PCS; 2019-02-15)
PROC: 0BH18EZ Insertion of Endotracheal Airway into Trachea, Via Natural or Artificial Opening Endoscopic (ICD-10-PCS; 2019-02-15)
PROC: 5A09357 Assistance with Respiratory Ventilation, Less than 24 Consecutive Hours, Continuous Positive Airway Pressure (ICD-10-PCS; 2019-02-15)
PROC: 5A1D70Z Performance of Urinary Filtration, Intermittent, Less than 6 Hours Per Day (ICD-10-PCS; 2019-02-16)
PROC: 5A1D70Z Performance of Urinary Filtration, Intermittent, Less than 6 Hours Per Day (ICD-10-PCS; 2019-02-18)
DX: A41.9 Sepsis, unspecified organism (principal); J96.02 Acute respiratory failure with hypercapnia; R65.21 Severe sepsis with septic shock; M72.6 Necrotizing fasciitis; G92 Toxic encephalopathy; J18.9 Pneumonia, unspecified organism; J96.01 Acute respiratory failure with hypoxia; N17.9 Acute kidney failure, unspecified; N18.4 Chronic kidney disease, stage 4 (severe); Z68.44 Body mass index [BMI] 60.0-69.9, adult; E87.1 Hypo-osmolality and hyponatremia; I13.0 Hypertensive heart and chronic kidney disease with heart failure and stage 1 through stage 4 chronic kidney disease, or unspecified chronic kidney disease; N39.0 Urinary tract infection, site not specified; E66.2 Morbid (severe) obesity with alveolar hypoventilation; I95.9 Hypotension, unspecified; E11.649 Type 2 diabetes mellitus with hypoglycemia without coma; I46.9 Cardiac arrest, cause unspecified; E11.22 Type 2 diabetes mellitus with diabetic chronic kidney disease; I25.10 Atherosclerotic heart disease of native coronary artery without angina pectoris; J44.9 Chronic obstructive pulmonary disease, unspecified; E87.5 Hyperkalemia; E88.09 Other disorders of plasma-protein metabolism, not elsewhere classified; M19.90 Unspecified osteoarthritis, unspecified site; I50.9 Heart failure, unspecified; D53.9 Nutritional anemia, unspecified; Z99.81 Dependence on supplemental oxygen; Z79.4 Long term (current) use of insulin; Z82.49 Family history of ischemic heart disease and other diseases of the circulatory system; Z79.899 Other long term (current) drug therapy; Z90.49 Acquired absence of other specified parts of digestive tract
CPT/HCPCS: 36415; 36556; 36600; 70450; 71045; 71250; 74018; 74176; 76770; 76937; 80048; 80053; 80061; 80074; 80202; 80307; 80320; 81001; 82140; 82550; 82553; 82570; 82803; 82947; 82962; 83036; 84100; 84132; 84145; 84156; 84165; 84300; 84439; 84443; 84484; 85007; 85025; 85027; 85610; 85730; 86021; 86160; 86334; 86689; 87040; 87070; 87075; 87086; 87116; 87205; 87400; 87449; 87641; 93005; 93010; 93306; 94002; 94003; 94640; 94644; 94660; 94760; G0378; 87502; A4217; A6260; C1752; G0480; J0171; J0610; J0692; J1170; J1265; J1450; J1644; J1815; J1956; J2185; J2250; J2370; J2704; J3010; J3370; J7030; J7040; J7050; J7070; P9047